=== PATIENT | male | born 1950 | race Hispanic/Latino ===

== ENCOUNTER 2021-10-05 14:33 | Inpatient (IN) | payer OTHER ==
--- NOTE | 2021-10-05 11:09 | R.PREADM ---
PRE-ADMISSION SCREENING FORM SCREENING DATE AND TIME 10/05/2021 10:39 (CDT) ANTICIPATED REHAB ADMISSION DATE 10/06/2021 REFERRING FACILITY [facility] REFERRAL DATE AND TIME 10/04/2021 15:09 (CDT) ACUTE ADMIT DATE 09/30/2021 HOSPITALIZED IN LAST 60 DAYS? Yes Previous Rehabilitation(s): No. REFERRING PHYSICIAN Pato Mcmillan REHAB FACILITY [facility] CLINICAL LIAISON Caty Armando PHYSICIAN REVIEWER Dr. Uvaldo Gomez M.D. MR# [id number] [id number] NAME ABHISHEK RODRIGUES ADDRESS [address] [place] PHONE ( ZIP [phone] DATE OF 1950 AGE 71 SSN# [id number] GENDER male MARITAL STATUS Unknown ADMIT FROM 02 - [facility] PRE-HOSPITAL LIVING SETTING 01 - Home (private home/apt. board/care, assisted living, usp, transitional living) HOME TYPE AND DETAILS Type of home: single family house # of levels in the residence: 1 # of steps to enter the residence: 0 # of steps within the residence: 0 PRE-HOSPITAL LIVING WITH Alone FAMILY SUPPORT No PHONE PRIMARY FAMILY CONTACT ON ADM.? no IS PRIMARY FAMILY CONTACT AUTH. REP.? no PHONE 1ST CONTACT ON ADM. no IS 1ST CONTACT AUTH. REP.? no PHONE 2ND CONTACT ON ADM.? no PATIENT EMPLOYMENT STATUS Retired (for age) PATIENT EMPLOYER No Employer PAYOR INFORMATION: 1ST PAYOR NAME MEDICARE 1ST PAYOR PHONE 1ST PAYOR INJURY/ILLNESS DUE TO ACCIDENT? No ANOTHER LIBERTARIAN RESPONSIBLE? No PRIMARY REHAB/ACUTE DIAGNOSIS: Epidural hemorrhage without loss of consciousness, initial encounter (S06.4X0A) ONSET DATE 09/30/2021 REHAB IMPAIRMENT CATEGORY (KARLOS): 02 Traumatic brain injury (TBI) MEETS 60% rule PRIMARY DIAGNOSIS-RELATED SURGERIES: posterior C1-C2 fusion with iliac crest autograft harvest COMORBID REHAB/ACUTE DIAGNOSES: - Tier 3 Chronic systolic (congestive) heart failure (I50.22) - Non-Tiered Unspecified atrial fibrillation (I48.91) Chronic kidney disease, unspecified (N18.9) Essential (primary) hypertension (I10) Type 2 diabetes mellitus without complications (E11.9) Hypo-osmolality and hyponatremia (E87.1) Syncope and collapse (R55) Hyperkalemia (E87.5) Alzheimer's disease with late onset (G30.1) Atrioventricular block, first degree (I44.0) - N/A Grade III dens fracture Left C7 facet fracture INTERVENTIONS: - Type 2 Diabetes Assess LE for temperature, pulses, color, and sensation. Assess for signs of hyperglycemia. Monitor blood glucose and effectiveness of medications/Insulin - Hypertension Assess/ Monitor patient B/P and treat with prescribed medications Increase physical activity Implement healthy diet - Afib Administer prescribed anticoagulants and monitor effectiveness Assess/ Monitor pt cardiac and respiratory status Monitor pt labs - Chronic Kidney Disease Assess fluid status and identify potential sources of imbalance. Encourage alternating activity with rest. Ensure proper nutritional intake within the limits of the treatment regimen. Promote increased self-care and greater independence. - Congestive Heart Failure Administer Supplemental O2 as indicated Administer prescribed medications per physician orders Assess/ Monitor and treat fluid overload Assess/ Monitor pt O2 Sats via Pulse Ox Monitor pt labs - Pain Assess/Monitor pt pain and treat with prescribed pain medications Anticipate the need for pain medication for optimal pain managment Educate pt on relaxation techniques and deep breathing Non pharmacological pain management - Hyponatremia 2l fluid restriction RISK FOR COMPLICATIONS: - DVT Active and Passive ROM exercises Administer medications per MD order Assist patient with frequent position changes Elevate BLE - CHF Assess/ Monitor pt for s/s cardiac/respiratory distress - Skin Breakdown Encourage ambulation as tolerated Repositioning q 2 hours Use of pillows or foam wedges while in bed - Pain Anticipate the need for pain medication for optimal pain managment Assess pt for pain and Administer prescribed pain medication as needed Educate patient on relaxation and deep breathing techniques - Falls Maintain call light within patient reach for easy access to nursing assistance Provide assistance getting out of bed and with ambulation Provide assistive devices - Stroke Assess/ Monitor and maintain patient pain level Assess/ Monitor patient blood pressure - Cardiac Failure Assess/ Monitor pt cardiac status SUMMARY OF ACUTE HOSPITALIZATION: Pt. is a 71 yo Right-handed male. On 09/30/2021 he was admitted to [facility] with diagnosis Epidural hemorrhage without loss of consciousnes s, initial encounter (S06.4X0A). His impairment category is Brain Dysfunction 02 - Closed Injury (03.29). Pre-morbidly, Pt. was independent/mod-I in Locomotion and Self-Care; and he had good Safety Awareness , Balance, Transfers Control, and Endurance. Currently, he has deficits of Locomotion, Safety Awareness, Balance, Self-Care, Transfers Control, an d Endurance. Pt. is now referred to [facility] for acute in-patient rehabilitation in order to maximize patient's functional independence in activities of daily living, strength, ROM, and mobi lity. Patient has realistic goal of being discharged at assistance level 6-Amalia to reside at Home with Pt self. PAST MEDICAL HISTORY Chronic kidney disease, unspecified (N18.9) Essential (primary) hypertension (I10) Grade III dens fracture Hypo-osmolality and hyponatremia (E87.1) Left C7 facet fracture S12.14XS Type 2 diabetes mellitus without complications (E11.9) Type III dens fracture Unspecified atrial fibrillation (I48.91) MEDICATION ALLERGIES: No Known Drug Allergies (NKDA) ENVIRONMENTAL ALLERGIES: - Substance Allergies None Known - Other Allergies None Known CODE STATUS: Full code WEIGHT/HEIGHT/BMI: WEIGHT unknown lbs HEIGHT 5' unknown" BMI N/A DIET: - Diet Type Regular - Diet - Solid Texture Regular - Diet - Liquid Texture Regular - Tube Feed N/A SKIN DIAGRAM: Gonzalez Cath on Genitalia; extent - small; stage - NS(Not Stageable). Treatment - Per Physician's Order s. REVIEW OF SYSTEMS: - Gen Alert and awake Lying in bed No apparent distress Oriented to: person, time, and place - Vital Signs Temperature: 98.0 F SBP/DBP: 123/71 Pulse: 64 Resp: 18 Vital signs stable, afebrile - CVS RRR VITAL SIGNS Temperature: 98.0 F SBP/DBP: 123/71 Pulse: 64 Resp: 18 Vital signs stable, afebrile MEDICATIONS/TREATMENT: Other- See attached MAR (Medication Administration Record). CURRENT SPHINCTER CONTROL: Pre-hospital bladder status: unspecified # of bladder accidents in the last 7 days prior to screenin Pre-hospital bowel status: unspecified # of bowel accidents in the last 7 days prior to screenin Last Bowel Movement Date: 10/04/2021 CURRENT LOCOMOTION STATUS: distance walked 0 feet DETAILED CURRENT FUNCTIONAL STATUS: - Bladder accident frequency: 7-Ind - No accidents in the past 7 days - Bowel accident frequency: 7-Ind - No accidents in the past 7 days - Walking score based on distance walked: 0(N/A) - Wheelchair score based on distance traveled: 0(N/A) QI SCORES: - Self-Care A. Eating 04-Supervision or touching assistance B. Oral hygiene 04-Supervision or touching assistance C. Toileting hygiene 02-Substantial/maximal assistance E. Shower/bathe self 88-Not attempted due to medical condition or safety concerns F. Upper body dressing 04-Supervision or touching assistance G. Lower body dressing 02-Substantial/maximal assistance H. Putting on/taking off footwear 02-Substantial/maximal assistance - Mobility A. Roll left and right 03-Partial/moderate assistance B. Sit to lying 03-Partial/moderate assistance C. Lying to sitting on side of bed 03-Partial/moderate assistance D. Sit to stand 03-Partial/moderate assistance E. Chair/wzg-lq-btume transfer 07-Patient refused F. Toilet transfer 07-Patient refused G. Car transfer 88-Not attempted due to medical condition or safety concerns I. Walk 10 feet 88-Not attempted due to medical condition or safety concerns J. Walk 50 feet with two turns 88-Not attempted due to medical condition or safety concerns K. Walk 150 feet 88-Not attempted due to medical condition or safety concerns L. Walking 10 feet on uneven surfaces 88-Not attempted due to medical condition or safety concerns M. 1 step (curb) 88-Not attempted due to medical condition or safety concerns N. 4 steps 88-Not attempted due to medical condition or safety concerns O. 12 steps 88-Not attempted due to medical condition or safety concerns P. Picking up object 88-Not attempted due to medical condition or safety concerns R. Wheel 50 feet with two turns 09-Not applicable S. Wheel 150 feet 09-Not applicable - Bladder and Bowel Bladder continence 9-Not applicable Bowel continence 1-Occasionally incontinent - Endurance Fair - Balance Poor - Safety Awareness Poor CURRENT FUNC. DEFICITS: Self-Care, Mobility, Endurance, Balance, and Safety Awareness HISTORY OF FALLS. HAS THE PATIENT HAD TWO OR MORE FALLS IN THE PAST YEAR OR ANY FALL WITH INJURY IN T HE PAST YEAR?: No PRIOR SURGERY. DID THE PATIENT HAVE MAJOR SURGERY DURING THE 100 DAYS PRIOR TO ADMISSION?: Yes THERAPY NOTES FROM ACUTE CARE: Attached. SPECIAL NEEDS: - Safety Concerns Skin breakdown precautions needed due to skin breakdown risk - Fall Precautions Due to poor balance PRECAUTIONS: - Fall Precaution Low bed TABS alarm Bed alarm - Weight Bearing Precaution No lifting greater than 10lbs - Incontinence Bowel Incontinence - DVT Risk due to restricted mobility and age - Skin Breakdown Risk due to restricted mobility and age PATIENT NEEDS ACTIVE AND ONGOING THERAPEUTIC INTERVENTION OF MULTIPLE THERAPY DISCIPLINES, INCLUDING: - Dietary and Nutrition Adequate Nutrition. Nutritional Education. Nutritional Supplements. - Occupational Therapy Cognitive Retraining. Patient needs Occupational Therapy for a daily minimum of 1.5 hours at least 5 out of 7 days, to improve Activities of Daily Living, including: Eating, Grooming, Bathing, Dressing, Toileting, Toilet Transfers, Community Reintegration, Higher functional activities, Adaptive Equipme nt, Splinting, Household Tasks, and Other activities as determined. Visual Perceptual Training. - Physical Therapy Patient needs Physical Therapy for a daily minimum of 1.5 hours at least 5 out of 7 days, to improve: Mobility, Strengthening, Transfers, Stretching, ROM, Endurance, Ability to manage stairs, Gait, and Balance. PATIENT NEEDS CLOSE MEDICAL SUPERVISION BY A REHABILITATION PHYSICIAN FOR: Coordination of Treatment Team Diabetes Management Medical and Co-Morbidity Management Wound Care Bowel and Bladder Management Pain Management Post-Op Complications PATIENT REQUIRES 24X7 REHAB NURSING FOR MEDICAL AND FUNCTIONAL MGT. OF THE FOLLOWING DEFICITS: Disease Management Medication Management Patient requires 24x7 Rehabilitation Nursing for: Pain Issues, Identifying and preventing risk factor s, Monitoring and reporting current medical conditions, Assisting with ambulation and transfer, Analilia ting with all ADL-s, Teaching patients about disease process and medications, Family teaching, Provid ing safe environment, Bowel and Bladder Issues, Skin Integrity, and Medication Management Patient/Family Education Providing Safe Environment Skin Integrity PATIENT REQUIRES INTENSIVE, COORDINATED INTERDISCIPLINARY APPROACH TO REHAB: Arranging Home Equipment/Services Discharge Planning Family Intervention/Training Patient needs Dietary and Nutrition Services for: Adequate Nutrition, Nutritional Supplements, and Nu tritional Education Patient needs Fairground Operator and/or Case Management for: Discharge Planning, Arranging Home Equipmen t or Services, and Family Interventions Fairground Operator/Case Management PATIENT REHAB POTENTIAL: Cassidy RODRIGUES is able and expected to receive 3 hours of individualized therapy daily on at least 5 of e very 7 days Cassidy RODRIGUES's prognosis for significant practical improvement within a reasonable period of time appea rs Good Expected level of measurable improvement will be of a practical value to Cassidy RODRIGUES's functional capa city or adaptations to impairments Has a viable Discharge Plan Medically appropriate; condition is sufficiently stable to participate in intensive rehab program DISCHARGE PLAN: - Estimated Length of Stay (days) 17. - Consensus on plan Discharge plan has been discussed with primary caregiver. Patient/Family is in agreement with the mae n. Primary caregiver is in agreement with the plan. - Patient/Family Goals Return home independently. - Planned Living Setting Upon Discharge Home, to live alone. Transitional Living. Primary caregiver: Pt self. RECOMMENDED CARE LEVEL: IRF RECOMMENDATION DETAILS: Recommended Admission to Comprehensive Rehabilitation Program to Increase Functional Comal SCREENER'S COMPLETENESS CONFIRMATION: - Screening Confirmation The patient data collection on this preadmission screening form is finished PHYSICIANS REVIEW AND ADMISSION DETERMINATION Admit - Based on my review of the Pre-Admission Screening results, in my medical judgment and experie nce, I concur with the findings and recommend admission to [facility], as this patient requires an IRF level of care. SIGNATURE PANEL: Clinical Liaison - [electronically] signed by Caty Armando on 10/05/2021 at 10:37 (CDT) Physician Reviewer - [electronically] signed by Dr. Uvaldo Gomez M.D. on 10/05/2021 at 11:09 (CDT )
--- OUTSIDE RECORDS SUMMARY | 2021-10-05 20:21 | XMS REPORT | Continuity of Care Document ---
:1950 Author Organization [facility] t Address [address] [place] [address] Care Team Providers Name Role Phone Edgardo García MD A Primary Care Physician [phone] NAILA GIRALDO Attending Clinician Unavailable NAILA GIRALDO Attending Clinician Unavailable Rolando Laguerre MD Attending Clinician Misty Avelar MA Attending Clinician Unavailable Edgardo García Attending Clinician Guanaco Jones MA Attending Clinician Unavailable NAILA GIRALDO Admitting Clinician Unavailable Payers Payer Name Policy Type Policy Number Effective Date Expiration Date S joni MEDICARE PART A [id number] 2015 \\T\\ B 00:00:00 BCBS FED SELECT [id number] 2004 00:00:00 Problems Condition Condition Condition Status Onset Resolution Last Treating Co mments Source Name Details Category Date Date Treatment Clinician Date Hyponatrem Hyponatrem Disease Active U apnchito ia ia 8 ity of 00:00: [place] 00 Medical Branch Controlled Controlled Disease Recurre Overvie w: Univers type 2 type 2 nce 09-28 Formattin ity of diabetes diabetes 00:00: g of this [place] as mellitus mellitus 00 note is Medic al with with different Branch hyperglyce hyperglyce from the chan, chan, original. 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 8-24 ity of disease disease 00:00: [place] 00 Medical Branch 1st degree 1st degree Disease Active U nivers AV block AV block 8-24 ity of 00:00: [place] 00 Medical Branch Other Other Disease Active Univers specified specified 8-24 ity of hypothyroi hypothyroi 00[place] dism dism 00 Medical Branch Chronic Chronic Disease Recurre Univer s indwelling indwelling nce 8-24 it y of Gonzalez Gonzalez 00:00: [place] catheter catheter 00 Medica l Branch Hyperkalem Hyperkalem Disease Active U nivers ia ia 8-24 ity of 00:00: [place] Medical Branch Syncope, Syncope, Disease Active Unive rs unspecifie unspecifie 8-18 it y of d syncope d syncope 00:00: Shai lagos type type 00 Medical Branch Chronic Chronic Disease Active Univers kidney kidney 6-30 ity of disease, disease, 00:00: [place] stage 3 stage 3 00 Medical unspecifie unspecifie Br anch d d Chronic Chronic Disease Active Univers atrial atrial 6-30 ity of fibrillati fibrillati 00:00: [place] on, on, 00 Medical unspecifie unspecifie Br anch d d Chronic Chronic Disease Active Univers systolic systolic 6-30 ity of (congestiv (congestiv 00:00: [place] e) heart e) heart 00 Medica l failure failure Branch Fall, Fall, Disease Active Univers initial initial 6-27 ity of encounter encounter 00:00: [facility] Medical Branch Elevated Elevated Disease Active [facility] cortisol cortisol [address] level level 00:00: [facility]osp[facility] 00 l Acquired Acquired Disease Active [facility] di hypothyroi hypothyroi [address] dism dism 00:00: Hospita 00 l Hyponatrem Hyponatrem Disease Active M ethodi ia ia 6-13 st 00:00: Hospita 00 l Abnormal Abnormal Disease Active [facility] di liver liver [address] function function 00:00: Hospit a test test 00 l Iron Iron Disease Active Methodi deficiency deficiency 13 st anemia anemia 00:00: Hospita 00 l Vitamin D Vitamin D Disease Active Met hodi deficiency deficiency 07-18 00:00: Hospita 00 l Diabetes Diabetes Disease Active Metho di mellitus mellitus 07-18 00:00: Hospita 00 l Back pain Back pain Disease Active Met hodi 07-18 00:00: Hospita 00 l Heart Heart Disease Active Methodi disease disease 07-18 00:00: Hospita 00 l Hypertensi Hypertensi Disease Active M ethodi on on 07-18 00:00: Hospita 00 l Neuropathy Neuropathy Disease Active M ethodi 07-18 00:00: Hospita 00 l Stage 3a Stage 3a Disease Active Metho di chronic chronic 07-18 kidney kidney 00:00: Hospita disease disease 00 l Allergies, Adverse Reactions, Alerts Allergy Allergy Status Severity Reaction(s) Onset Inactive Treating Comm ents Source Name Type Date Date Clinician MORPHINE DRUG Active Unknown-Cmnt Un pat INGREDI 08-01 ity of 00:00: [place] 00 Medical Branch Morphine Propensi Active Unknown - Uni vers ty to See comments 08-01 ity of adverse 00:00: [place] reaction 00 [facility] Branch Morphine Propensi Active Hallucinatio Methodi ty to ns 06-30 st adverse 00:00: Hospita reaction 00 l s to drug Family History Family Member Diagnosis Comments Start Date Stop Date Source Natural daughter Diabetes [facility] [place] [facility] Natural daughter Hypertension Method [facility] Natural daughter [facility] father Hypertension [facility] [place] [facility] Social History Social Habit Start Date Stop Date Quantity Comments Source Exposure to 2021-09-12 2021-09-22 Not sure [facility] SARS-CoV-2 00:00:00 04:19:00 [facility] (event) [place] Tobacco use and 2021-08-26 2021-08-26 Smokeless tobacco Un iversity of exposure 00:00:00 00:00:00 non-user [facility] Education 2021-08-01 2021-08-01 14 University of 00:00:00 00:00:00 [facility] Alcohol intake 2021-07-18 2021-07-18 [facility] 00:00:00 00:00:00 non-drinker Hospital (finding) Sex Ass[birth year] At [birth year] [facility] 00:00:00 00:00:00 Hospital Smoking Status Start Date Stop Date Source Never smoked tobacco [facility] Medications Ordered Filled Start Stop Current Ordering Indication Dosage Frequency Signature Comments Components Source Medication Medication Date Date Medication? Clinician (SIG) Name Name glimepiride Yes 1mg Take 1 mg U nivers (AMARYL) 1 8-31 by mouth ity o f mg tablet 18:35: daily with [place] 55 breakfast. Medical Branch amiodarone Yes 200mg Take 200 Un pat 200 mg 8-31 mg by ity of tablet 18:35: mouth [place] 55 daily. Medical Branch carvediloL Yes 25mg Take 25 mg U nivers (COREG) 25 8-31 by mouth 2 ity of mg tablet 18:35: (two) [place] [address] times Medical daily with Branch meals. DULoxetine Yes 60mg Take 60 mg U nivers 60 mg 8-31 by mouth ity of capsule 18:35: daily. [place] [address] Medical Branch ferrous Yes 325mg Take 325 Unive rs sulfate 325 8-31 mg by ity of mg (65 mg 18:35: mouth 2 [place] iron) EC 55 (two) Medical tablet times Branch daily with meals. gabapentin Yes 400mg Take 400 Un pat 400 mg 8-31 mg by ity of capsule 18:35: mouth 2 [place] 55 (two) Medical times Branch daily. omeprazole Yes 20mg Take 20 mg U nivers 20 mg 8-31 by mouth ity of capsule 18:35: daily. [place] [address] Medical Branch tamsulosin Yes Take by Univ ers 0.4 mg 24 8-31 mouth ity of hr capsule 18:35: daily. [place] [address] Medical Branch traZODone Yes 100mg Take 100 Uni vers 100 mg 8-31 mg by ity of tablet 18:35: mouth at [place] [address] bedtime. Medical Branch SITagliptin Yes 50mg Take 50 mg Univers (JANUVIA) 8-31 by mouth ity of 50 mg 18:35: daily. [place] [address] Medical Branch levothyroxi 2021- No 25ug Take 25 Un pat ne 25 mcg 8-31 08-31 mcg by ity of tablet 10:19: 00:00 mouth [place] 34 :00 every Medical morning. Branch lisinopriL 2021- No 20mg Take 20 mg Univers 20 mg 10-05 by mouth ity of tablet 10:19: 00:00 daily. [place] 34 :00 Medical Branch polyethylen Yes [id number] 17g Take 1 Univers e glycol 10-05 Packet by ity of 3350 17 00:00: mouth in [place] gram powder 00 the Medical morning Branch and 1 Packet in the evening. ergocalcife Yes [id number] 76742L Take 1 Univers rol, 10-05 capsule by ity of vitamin d2, 00:00: mouth [place] 1,250 mcg 00 weekly. Medical (50,000 Branch unit) capsule bisacodyL 2021- Yes [id number] 10mg Insert 1 Univers 10 mg 10-05 Suppositor ity of suppository 00:00: 04:59 y into [place] as 00 :00 rectum Medical once daily Branch as needed for Constipati on unresolved by oral medication s for up to 30 days. metFORMIN 2021- Yes [id number] 500mg Take 1 Univers 500 mg 10-05 tablet by ity of tablet 00:00: 04:59 mouth in [place] 00 :00 the Medical morning Branch and 1 tablet in the evening. Take with meals. Do all this for 30 days. methocarbam 2021- Yes [id number] 750mg Take 1 Univers oL 750 mg 10-05 tablet by ity of tablet 00:00: 04:59 mouth 4 [place] 00 :00 (four) Medical times Branch daily for 30 days. melatonin 3 2021- Yes [id number] 3mg Take 1 Univers mg tablet 10-05 tablet by ity of 00:00: 04:59 mouth at [place] 00 :00 bedtime Medical for 30 Branch days. HYDROcodone 2021- Yes [id number] 1{tbl} Take 1 U nivers -acetaminop 10-0508 tablet by it y of hen 10-325 00:00: 04:59 mouth [place] mg tablet 00 :00 every 4 Medical (four) Branch hours as needed for Pain (scale 7-10) for up to 7 days. Indication s: acute pain traZODone 2-0 Yes 100mg 100 mg, Univ ers (DESYREL) 8-30 Oral, QHS, ity of tablet 100 02:00: First dose [place] mg 00 (after Medical last Branch modificati on) on Sun10/03/21 at 2100, Until Discontinu ed, Routine traZODone 2-0 Yes 100mg 100 mg, Univ ers (DESYREL) 830 Oral, QHS, ity of tablet 100 02:00: First dose [place] mg 00 (after Medical last Branch modificati on) on Sun10/03/21 at 2100, Until Discontinu ed, Routine sennosides 2021-0 Yes 8.6mg 8.6 mg, Uni vers (SENOKOT) 10-03 Oral, ity of tablet 8.6 16:30: DAILY, [place] mg 00 First dose Medical on Sun [place] 10/03/21 at 1130, Until Discontinu ed, Routine polyethylen 2021-0 Yes 17g 17 g, Unive rs e glycol 10-03 Oral, BID, ity o f 3350 powder 16:30: First dose [place] [address] [facility] 10/03/21 at Branch 1130, Until Discontinu ed, Routine sennosides 2021-0 Yes 8.6mg 8.6 mg, Uni vers (SENOKOT) 10-03 Oral, ity of tablet 8.6 16:30: DAILY, [place] mg 00 First dose Medical on Sun [place] 10/03/21 at 1130, Until Discontinu ed, Routine polyethylen 2021-0 Yes 17g 17 g, Unive rs e glycol 10-03 Oral, BID, ity o f 3350 powder 16:30: First dose [place] [address] [facility] 10/03/21 at Branch 1130, Until Discontinu ed, Routine bisacodyL 2021-0 Yes 10mg 10 mg, Univer s (DULCOLAX) 10-03 Rectal, ity of suppository 15:37: QHSPRN, [place] as 10 mg 54 Starting Medical on Sun [place] 10/03/21 at 1037, Until Discontinu ed, Routine, Constipati on bisacodyL 2022-0 Yes 10mg 10 mg, Univer s (DULCOLAX) 10-03 Rectal, ity of suppository 15:37: QHSPRN, [place] as 10 mg 54 Starting Medical on Mon Branch 10/03/21 at 1037, Until Discontinu ed, Routine, Constipati on sodium 2021- No 2g 2 g, Oral, [facility] ers chloride 10-02 08-28 TID MEALS, ity of tablet 2 g 13:00: 21:14 First dose [place] 00 :14 on [facility] 10/02/21 at Branch 0800, Until Discontinu ed, Routine heparin Yes 5000U 5,000 Univers (porcine) 10-01 Units, ity of injection 19:00: Subcutaneo [place] 5,000 Units 00 us, Q8H, [facility] First dose Branch on 10/01/21 at 1400, Until Discontinu ed, Routine heparin Yes 5000U 5,000 Univers (porcine) 8 Units, ity of injection 19:00: Subcutaneo [place] 5,000 Units 00 us, Q8H, [facility] First dose Branch on 10/01/21 at 1400, Until Discontinu ed, Routine NaCl 0.9% 2021- No 1000mL at 42 [facility] ers (NS) IV 10-01 08- mL/hr, IV ity of infusion 02:15: 19:56 Infusion, [place] as 1,000 mL 00 :08 CONTINUOUS Medic al , Starting Branch on Sun09/30/21 at 2115, Until 10/01/21 at 1456, Routine HYDROcodone Yes 1{tbl} 1 tablet, Univers -acetaminop 10-01 Oral, ity of hen (NORCO) 02:00: Q4HPRN, [place] as 10-325 mg 00 Starting Medica l tablet 1 on Sun Branch tablet 09/30/21 at 2100, Until Discontinu ed, Routine, Pain (scale 7-10) methocarbam 0 Yes 750mg 750 mg, Un pat oL 10-01 Oral, QID, ity of (ROBAXIN) 02:00: First dose [place] tablet 750 00 (after Medical mg last Branch modificati on) on Sun09/30/21 at 2100, Until Discontinu ed, Routine HYDROcodone 0 Yes 1{tbl} 1 tablet, Univers -acetaminop 10-01 Oral, ity of hen (NORCO) 02:00: Q4HPRN, [place] as 10-325 mg 00 Starting Medica l tablet 1 on Fri Branch tablet 09/30/21 at 2100, Until Discontinu ed, Routine, Pain (scale 7-10) methocarbam Yes 750mg 750 mg, Un pat oL 10-01 Oral, QID, ity of (ROBAXIN) 02:00: First dose [place] tablet 750 00 (after Medical mg last Branch modificati on) on Sun09/30/21 at 2100, Until Discontinu ed, Routine HYDROcodone 2021- No 1{tbl} 1 tablet, Univers -acetaminop 10-01 Oral, ity of hen (NORCO) 00:53: 01:51 Q6HPRN, [place] 10-325 mg 17 :08 Starting Medica l tablet 1 on Sun Branch tablet 09/30/21 at 1953, Until Sun09/30/21 at 2050, Routine, Pain (scale 7-10) gabapentin 2021- No 100mg 100 mg, Un pat (NEURONTIN) 09-30 Oral, ity of capsule 100 20:00: 19:17 ONCE, 1 [place] mg 00 :00 dose, On Medical Fri Branch 09/30/21 at 1500, Routine methocarbam 2021- No 500mg 500 mg, U nivers oL 09-30 Intravenou ity of (ROBAXIN) 20:00: 19:18 s, ONCE, 1 [place] injection 00 :00 dose, On Medica l 500 mg Fri Branch 09/30/21 at 1500, Routine ceFAZolin 2021- No 1000mg 1,000 mg, Univers (ANCEF) 09-30 Intravenou ity o f injection 18:15: 20:54 s, Q8H [place] 1,000 mg 00 :07 ABX, 15 Medical doses, Branch First dose on Sun09/30/21 at 1315, Last dose on Sun10/05/21 at 0515
Re ason for Anti-Infec tive: Surgical Prophylaxi s
Surgi doyle Prophylaxi s: Neurosurge ry
Dura tion of therapy: within 24 hours of surgery FENTanyl PF 2021- No 25ug 25 mcg, Un pat (SUBLIMAZE 09-30 Slow IV ity o f (PF)) 17:55: 18:28 Push, [place] injection 57 :00 Q5MIN PRN, Medi doyle 25 mcg 4 doses, Branch Starting on Sun09/30/21 at 1255, Until Sun09/30/21 at 1328, Routine, Pain (scale 7-10), PACU bupivacaine 2021- No PRN, Unive rs (preserv 09-30 Starting ity of free) 0.5% 16:55: 18:37 on Sun s (SENSORCAIN 00 :44 09/30/21 at Md dicnm E MPF) 0.5 1155, Branch % (5 mg/mL) Until Sun injection 09/30/21 at 1337, Routine, Intra-op vancomycin 2021- No PRN, Univer s (VANCOCIN) 09-30 Starting ity of injection 14:48: 18:37 on Sun [place] 00 :44 09/30/21 at Medical 0948, Branch Until Sun09/30/21 at 1337, ANNA, Intra-op thrombin 2021- No PRN, Univers (recombinan 09-30 Starting ity of t) 14:48: 18:37 on Sun (RECOTHROM) 00 :44 09/30/21 at Md dical topical 0948, Branch solution Until Sun09/30/21 at 1337, Routine, Intra-op lidocaine-e 2021- No PRN, Unive rs pinephrine 09-30 Starting ity of (XYLOCAINE 14:47: 18:37 on Sun s WITH 00 :44 09/30/[address] [facility] EPINEPHRINE 0947, Branch ) 0.5 Until Sun %-1:200,000 09/30/21 at injection 1337, Routine, Intra-op NaCl 0.9% 2021- No 500mL at 999 Univ ers (NS) bolus 09-29 mL/hr, 500 it y of infusion 16:45: 18:05 mL, IV [place] 500 mL 00 :00 Piggyback, Medical ONCE, 1 Branch dose, On Sun09/29/21 at 1145, ANNA levothyroxi Yes 50ug 50 mcg, Uni vers ne 8 Oral, ity of (SYNTHROID) 11:00: QAM-0600, [place] tablet 50 00 First dose Medi doyle mcg (after Branch last modificati on) on Sun09/29/21 at 0600, Until Discontinu ed, Routine levothyroxi Yes 50ug 50 mcg, Uni vers ne 8 Oral, ity of (SYNTHROID) 11:00: QAM-0600, [place] tablet 50 00 First dose Medi doyle mcg (after Branch last modificati on) on Sun09/29/21 at 0600, Until Discontinu ed, Routine HYDROcodone 2021- No 1{tbl} 1 tablet, Univers -acetaminop 09-28 Oral, ity of hen (NORCO 20:00: 00:53 Q4HPRN, [place] as 5) 5-325 mg 00 :31 Starting Medi dyole tablet 1 on Sun tablet 09/28/21 at 1500, Until Sun09/30/21 at 1953, Routine, Pain (scale 7-10) bisacodyL 2021-0 Yes 10mg 10 mg, Univer s (DULCOLAX) 8- Rectal, ity of suppository 15:32: QDAILYPRN, [place] 10 mg 42 Starting Medical on Sun Branch 09/28/21 at 1032, Until Discontinu ed, Routine, Constipati on unresolved by oral medication s bisacodyL 2021-0 Yes 10mg 10 mg, Univer s (DULCOLAX) 824 Rectal, ity of suppository 15:32: QDAILYPRN, [place] 10 mg 42 Starting Medical on Sun Branch 09/28/21 at 1032, Until Discontinu ed, Routine, Constipati on unresolved by oral medication s sodium 2021-0 202- No 2g 2 g, Oral, Univ ers chloride 09-28 QID, First ity of tablet 2 g 03:45: 19:56 dose [place] 00 :08 (after Medical last Branch modificati on) on Sun09/27/21 at 2245, Until Discontinu ed, Routine heparin 2021- No 5000U 5,000 Univers (porcine) 09-27 0826 Units, ity of injection 19:00: 10:28 Subcutaneo [place] 5,000 Units 00 :11 us, Q8H, Medi doyle First dose Branch on Sun09/27/21 at 1400, Until Discontinu ed, Routine sodium 2021- No 1g 1 g, Oral, Univ ers chloride 09-27 0824 TID MEALS, ity of tablet 1 g 13:00: 03:33 First dose [place] 00 :29 on Sun09/27/21 at Branch 0800, Until Discontinu ed, Routine sulfamethox 2021- No 1{tbl} 1 tablet, [facility] azole-trime 09-25 Oral, BID, i ty of 17:30: 16:51 First dose [place] as (BACTRIM 00 :27 on [facility]) 800-160 09/25/21 at Br anch mg per 1230, tablet 1 Until tablet Discontinu ed, ANNA
Re ason for Anti-Infec tive: Documented Infection< br>Documen gretta Infection Site: Urine
D uration of Therapy: 7 days traZODone 2021- No 50mg 50 mg, Unive rs (DESYREL) 09-24 0829 Oral, QHS, ity of tablet 50 02:00: 15:36 First dose [place] mg 00 :11 (after Medical last Branch modificati on) on Sun09/23/21 at 2100, Until Discontinu ed, Routine metFORMIN 0 Yes 500mg 500 mg, Univ ers (GLUCOPHAGE 8-19 Oral, BID ity of ) tablet 22:00: MEALS, [place] 500 mg 00 First dose Medical on Sun09/23/21 at 1700, Until Discontinu ed, Routine metFORMIN 2021-0 Yes 500mg 500 mg, Univ ers (GLUCOPHAGE 8-19 Oral, BID ity of ) tablet 22:00: MEALS, [place] 500 mg 00 First dose Medical on Sun09/23/21 at 1700, Until Discontinu ed, Routine docusate 2022-0 Yes 100mg 100 mg, Unive rs (COLACE) 8 Oral, ity of capsule 100 14:00: DAILY, [place] mg 00 First dose Medical on Sun09/23/21 at 0900, Until Discontinu ed, Routine omeprazole 2-0 Yes 20mg 20 mg, Unive rs (PRILOSEC) 09-23 Oral, ity of capsule 20 14:00: DAILY, [place] mg 00 First dose Medical on Sun09/23/21 at 0900, Until Discontinu ed, Routine tamsulosin 2022-0 Yes .4mg 0.4 mg, Univ ers (FLOMAX) 09-23 Oral, ity of capsule 0.4 14:00: DAILY, [place] mg 00 First dose Medical on Sun09/23/21 at 0900, Until Discontinu ed, Routine SITagliptin 2-0 Yes 50mg 50 mg, Univ ers (JANUVIA) 09-23 Oral, ity of tablet 50 14:00: DAILY, [place] mg 00 First dose Medical on Sun09/23/21 at 0900, Until Discontinu ed, Routine ergocalcife 2021-0 Yes [id number] 50,000 Un pat rol 09-23 Units, ity of (vitamin 14:00: Oral, [place] d2) 00 QWEEKLY, Medical (CALCIFEROL First dose Br anch ) capsule on Sun 50,000 09/23/21 at Units 0900, Until Discontinu ed, Routine DULoxetine 2-0 Yes 60mg 60 mg, Unive rs (CYMBALTA) 09-23 Oral, ity of capsule 60 14:00: DAILY, [place] mg 00 First dose Medical on Sun09/23/21 at 0900, Until Discontinu ed, Routine amiodarone 2022-0 Yes 200mg 200 mg, Uni vers (PACERONE) 09-23 Oral, ity of tablet 200 14:00: DAILY, [place] mg 00 First dose Medical on Sun09/23/21 at 0900, Until Discontinu ed, Routine docusate 2022-0 Yes 100mg 100 mg, Unive rs (COLACE) 09-23 Oral, ity of capsule 100 14:00: DAILY, [place] mg 00 First dose Medical on Sun09/23/21 at 0900, Until Discontinu ed, Routine omeprazole 2021-0 Yes 20mg 20 mg, Unive rs (PRILOSEC) 09-23 Oral, ity of capsule 20 14:00: DAILY, [place] mg 00 First dose Medical on Sun Branch 09/23/21 at 0900, Until Discontinu ed, Routine tamsulosin 2021-0 Yes .4mg 0.4 mg, Univ ers (FLOMAX) 09-23 Oral, ity of capsule 0.4 14:00: DAILY, [place] mg 00 First dose Medical on Sun Branch 09/23/21 at 0900, Until Discontinu ed, Routine SITagliptin 2021-0 Yes 50mg 50 mg, Univ ers (JANUVIA) 09-23 Oral, ity of tablet 50 14:00: DAILY, [place] mg 00 First dose Medical on Sun Branch 09/23/21 at 0900, Until Discontinu ed, Routine ergocalcife 2021-0 Yes [id number] 50,000 Un pat rol 09-23 Units, ity of (vitamin 14:00: Oral, [place] d2) 00 QWEEKLY, Medical (CALCIFEROL First dose Br anch ) capsule on Sun 50,000 09/23/21 at Units 0900, Until Discontinu ed, Routine DULoxetine 2021-0 Yes 60mg 60 mg, Unive rs (CYMBALTA) 09-23 Oral, ity of capsule 60 14:00: DAILY, [place] mg 00 First dose Medical on Sun Branch 09/23/21 at 0900, Until Discontinu ed, Routine amiodarone 2021-0 Yes 200mg 200 mg, Uni vers (PACERONE) 09-23 Oral, ity of tablet 200 14:00: DAILY, [place] mg 00 First dose Medical on Sun Branch 09/23/21 at 0900, Until Discontinu ed, Routine lisinopriL 2021-0 2021- No 20mg 20 mg, Univ ers (PRINIVIL,Z 09-23 Oral, ity of ESTRIL) 14:00: 19:08 DAILY, [place] tablet 20 00 :21 First dose Medi doyle mg on Sun Branch 09/23/21 at 0900, Until Discontinu ed, Routine levothyroxi 2021-0 2021- No 25ug 25 mcg, Un pat ne 09-2324 Oral, ity of (SYNTHROID) 11:00: 18:53 QAM-0600, [place] tablet 25 00 :15 First dose Medi doyle mcg on Sun [place] 09/23/21 at 0600, Until Discontinu ed, Routine melatonin 2021-0 Yes 3mg 3 mg, Univers (MELATIN) 8-19 Oral, QHS, ity of tablet 3 mg 02:15: First dose [place] 00 on [facility] 09/22/21 at Branch 2115, Until Discontinu ed, Routine melatonin 2021-0 Yes 3mg 3 mg, Univers (MELATIN) 8 Oral, QHS, ity of tablet 3 mg 02:15: First dose [place] 00 on [facility] 09/22/21 at Branch 2115, Until Discontinu ed, Routine traZODone 2021-0 2021- No 100mg 100 mg, Uni vers (DESYREL) 09-23 08-19 Oral, QHS, ity of tablet 100 02:00: 20:39 First dose [place] mg 00 :06 on [facility] 09/22/21 at Branch 2100, Until Discontinu ed, Routine gabapentin 2021-0 Yes 400mg 400 mg, Uni vers (NEURONTIN) 8 Oral, BID, it y of capsule 400 01:00: First dose [place] mg 00 on [facility] 09/22/21 at Branch 1999, Until Discontinu ed, Routine ferrous 2021-0 Yes 325mg 325 mg, Univer s sulfate 09-23 Oral, BID, ity of tablet 325 01:00: First dose [place] mg 00 on [facility] 09/22/21 at [place] 1999, Until Discontinu ed gabapentin 2021-0 Yes 400mg 400 mg, Uni vers (NEURONTIN) 09-23 Oral, BID, it y of capsule 400 01:00: First dose [place] mg 00 on [facility] 09/22/21 at [place] 1999, Until Discontinu ed, Routine ferrous 2021-0 Yes 325mg 325 mg, Univer s sulfate 09-23 Oral, BID, ity of tablet 325 01:00: First dose [place] mg 00 on [facility] 09/22/21 at [place] 1999, Until Discontinu ed carvediloL 2021-0 Yes 25mg 25 mg, Unive rs (COREG) 8 Oral, BID ity of tablet 25 22:00: MEALS, [place] mg 00 First dose Medical on [facility] 09/22/21 at 1700, Until Discontinu ed, Routine carvediloL Yes 25mg 25 mg, Unive rs (COREG) 09-22 Oral, BID ity of tablet 25 22:00: MEALS, [place] mg 00 First dose Medical on [place] Branch 09/22/21 at 1700, Until Discontinu ed, Routine Sliding Yes Subcutaneo [facility] ers Scale 8- us, TID ity of Insulin - 17:00: MEALS+HS, [place] as Lispro 00 First dose Medical (HumaLOG) + on [place] Branch [facility] 09/22/21 at Testing 1200, Until Discontinu ed, Routine Sliding Yes Subcutaneo [facility] ers Scale 8- us, TID ity of Insulin - 17:00: MEALS+HS, [place] as Lispro 00 First dose Medical (HumaLOG) + on [place] Branch [facility] 09/22/21 at Testing 1200, Until Discontinu ed, Routine iopamidol 2021- No [id number] 80mL 80 mL, Univers (ISOVUE 09-22 Intravenou ity o f 370-500 mL) 16:45: 16:24 s, ONCE, 1 [place] injection 00 :00 dose, On Medica l 80 mL [facility] Branch 09/22/21 at 1145, Routine niCARdipine 2021- No 2.5mg/h 2.5-15 Univers (CARDENE 09-22 08-23 mg/hr ity of I.V.) 40 mg 15:26: 17:55 (12.5-75 [place] in NaCL 200 27 :13 mL/hr), IV Me dical mL (RTU) Infusion, Branch infusion TITRATE, SBP goal < 140, Starting on [place] 09/22/21 at 1026
In itiate infusion at 2.5 mg/hr.&nbs p; Ti trate by 2.5 mg/hr every 5 minutes to 15 minutes as needed to achieve and maintain goal blood pressure. Maximum dose = 15 mg/hr. If goal not maintained at maximum allowed dose, contact prescriber .
NaCl 0.9% 2021- No 1000mL at 42 Univ ers (NS) IV 8-18 08-23 mL/hr, IV ity of infusion 14:30: 11:38 Infusion, [place] as 1,000 mL 00 :15 CONTINUOUS Medic al , Starting Branch on [place] 09/22/21 at 0930, Until Sun09/27/21 at 0638, Routine ondansetron 2022-0 Yes 4mg 4 mg, Slow Univers (ZOFRAN 8-18 IV Push, ity of (PF)) 14:27: Q6HPRN, [place] injection 4 32 Starting Medi doyle mg on [place] Branch 09/22/21 at 0927, Until Discontinu ed, Routine, Nausea and Vomiting (N/V) ondansetron 2022-0 Yes 4mg 4 mg, Slow Univers (ZOFRAN 8-18 IV Push, ity of (PF)) 14:27: Q6HPRN, [place] injection 4 32 Starting Medi doyle mg on [place] [facility] 09/22/21 at 0927, Until Discontinu ed, Routine, Nausea and Vomiting (N/V) labetaloL 2022-0 Yes 20mg 20 mg, Univer s (NORMODYNE) 8-18 Slow IV ity o f injection 14:27: Push, [place] 20 mg 14 Q2HPRN, Medical Starting Branch on [place] 09/22/21 at 0927, Until Discontinu ed, Routine, SBP goal < 140 labetaloL 2022-0 Yes 20mg 20 mg, Univer s (NORMODYNE) 8-18 Slow IV ity o f injection 14:27: Push, [place] 20 mg 14 Q2HPRN, Medical Starting Branch on [place] 09/22/21 at 0927, Until Discontinu ed, Routine, SBP goal < 140 hydralAZINE 2022-0 Yes 10mg 10 mg, Univ ers (APRESOLINE 8-18 Slow IV ity o f ) injection 14:27: Push, [place] 10 mg 01 Q2HPRN, Medical Starting Branch on [facility] 09/22/21 at 0927, Until Discontinu ed, Routine, SBP goal < 140 hydralAZINE 2022-0 Yes 10mg 10 mg, Univ ers (APRESOLINE 8-18 Slow IV ity o f ) injection 14:27: Push, [place] 10 mg 01 Q2HPRN, Medical Starting Branch on [facility] 09/22/21 at 0927, Until Discontinu ed, Routine, SBP goal < 140 glucagon 2021-0 Yes 1mg 1 mg, Univers (GLUCAGEN 8-18 Intramuscu ity of DIAGNOSTIC 14:26: [place], [place] 04 Starting Medical injection 1 on [place] [facility] mg 09/22/21 at 0926, Until Discontinu ed, ANNA, Blood Glucose < or = 70 mg/dL and patient is unable to swallow or has mental changes. dextrose 50 0 Yes 25mL 25 mL, Univ ers % in water 818 Slow IV ity of (D50W) 14:26: Push, PRN, [place] injection 04 Starting Medica l 25 mL on [place] [facility] 09/22/21 at 0926, Until Discontinu ed, ANNA, Blood Glucose < or = 70 mg/dL and patient is unable to swallow or has mental status changes. glucagon 0 Yes 1mg 1 mg, Univers (GLUCAGEN 818 Intramuscu ity of DIAGNOSTIC 14:26: [place], [place] 04 Starting Medical injection 1 on [place] [facility] mg 09/22/21 at 0926, Until Discontinu ed, ANNA, Blood Glucose < or = 70 mg/dL and patient is unable to swallow or has mental changes. dextrose 50 0 Yes 25mL 25 mL, Univ ers % in water 18 Slow IV ity of (D50W) 14:26: Push, PRN, [place] injection 04 Starting Medica l 25 mL on [place] [facility] 09/22/21 at 0926, Until Discontinu ed, ANNA, Blood Glucose < or = 70 mg/dL and patient is unable to swallow or has mental status changes. HYDROcodone 2021-0 2021- No 1{tbl} 1 tablet, Univers -acetaminop 09-22 Oral, ity of hen (NORCO 14:25: 19:45 Q6HPRN, Harshad as 5) 5-325 mg 47 :58 Starting Medi [place] tablet 1 on [place] [facility] tablet 09/22/21 at 0925, Until 09/28/21 at 1445, Routine, Pain (scale 7-10) acetaminoph 2022-0 Yes 325mg 325 mg, Un pat en 09-22 Oral, ity of (TYLENOL) 14:25: Q6HPRN, [place] tablet 325 43 Starting Medic al mg on [place] [facility] 09/22/21 at 0925, Until Discontinu ed, Routine, Pain (scale 1-3) acetaminoph Yes 325mg 325 mg, Un pat en 09-22 Oral, ity of (TYLENOL) 14:25: Q6HPRN, [place] tablet 325 43 Starting Medic al mg on [place] [facility] 09/22/21 at 0925, Until Discontinu ed, Routine, Pain (scale 1-3) FENTanyl PF 2021- No 50ug 50 mcg, Un pat (SUBLIMAZE 09-22 Slow IV ity o f (PF)) 14:00: 12:50 Push, [place] injection 00 :00 ONCE, 1 Medical 50 mcg dose, On Branch [facility] 09/22/21 at 0900, ANNA FENTanyl PF 2021- No 50ug 50 mcg, Un pat (SUBLIMAZE 09-22 Slow IV ity o f (PF)) 12:00: 11:02 Push, [place] injection 00 :00 ONCE, 1 Medical 50 mcg dose, On Branch [facility] 09/22/21 at 0700, Routine ondansetron 2021- No 4mg 4 mg, Slow Univers (ZOFRAN 09-22 IV Push, ity of (PF)) 11:00: 11:02 ONCE, 1 [place] injection 4 00 :00 dose, On Medi doyle mg [place] [facility] 09/22/21 at 0600, ANNA piperacilli 2021- No 3.375g 3.375 g, Univers n-tazobacta 09-22 IV ity of m (ZOSYN) 11:00: 11:32 [place] 3.375 g in 00 :00 ONCE, 1 Medica l NaCl 0.9% dose, On Branch (NS) 50 mL [place] MINI-BAG 09/22/21 at 0600, Administer over 30 Minutes, 50 mL
R juana for Anti-Infec tive: Documented Infection< br>Documen gretta Infection Site: Urine<br&g t;Duration of Therapy: Other (see Comments) glimepiride Yes 1mg Take 1 mg U nivers (AMARYL) 1 8-18 by mouth ity o f mg tablet 09:29: [place] 04 breakfast. Medical Branch levothyroxi Yes 25ug Take 25 Uni vers ne 25 mcg 8-18 mcg by ity of tablet 09:29: mouth [place] [id number] every Medical morning. Branch amiodarone Yes 200mg Take 200 Un pat 200 mg 8-18 mg by ity of tablet 09:29: mouth [place] [id number] daily. Medical Branch carvediloL Yes 25mg Take 25 mg U nivers (COREG) 25 8-18 by mouth 2 ity of mg tablet 09:29: (two) [place] [id number] [facility] daily with Branch meals. DULoxetine Yes 60mg Take 60 mg U nivers 60 mg 8-18 by mouth ity of capsule 09:29: daily. [address] ferrous Yes 325mg Take 325 Unive rs sulfate 325 8-18 mg by ity of mg (65 mg 09:29: mouth 2 [place] iron) EC 04 (two) Medical tablet times [place] daily with meals. gabapentin Yes 400mg Take 400 Un pat 400 mg 8-18 mg by ity of capsule 09:29: mouth 2 [place] 04 (two) Medical times Branch daily. lisinopriL Yes 20mg Take 20 mg U nivers 20 mg 8-18 by mouth ity of tablet 09:29: daily. [address] omeprazole Yes 20mg Take 20 mg U nivers 20 mg 8-18 by mouth ity of capsule 09:29: daily. [address] tamsulosin Yes Take by Univ ers 0.4 mg 24 8-18 mouth ity of hr capsule 09:29: daily. [address] traZODone Yes 100mg Take 100 Uni vers 100 mg 8-18 mg by ity of tablet 09:29: mouth at [place] [address] bedtime. Medical Branch SITagliptin Yes 50mg Take 50 mg Univers (JANUVIA) 8-18 by mouth ity of 50 mg 09:29: daily. [place] tablet 04 Medical Branch rivastigmin 0 Yes [id number] 1{patch Apply 1 Univers e 4.6 mg/24 7-29 } Patch to ity of hour patch 00:00: [place] 00 the Medical morning. Branch Call office for refill when script completed. rivastigmin 0 Yes [id number] 1{patch Apply 1 Univers e 4.6 mg/24 729 } Patch to ity of hour patch 00:00[place] 00 the Medical morning. Branch Call office for refill when script completed. ergocalcife 2021- No [id number] 20969H Take 1 Univers rol, 08-11 [id number] capsule by ity of vitamin d2, 00:00: 00:00 [place] 1,250 mcg 00 :00 weekly for Medi doyle (50,000 8 doses. Branch unit) capsule ergocalcife 2021- No [id number] Take 1 Univers rol, 08-11 [id number] capsule by ity of vitamin d2, 00:00: 04:59 [place] 1,250 mcg 00 :00 weekly for Medi doyle (50,000 8 doses. Branch unit) capsule levothyroxi Yes [id number] 25ug QD Take 1 Methodi ne 6-13 tablet (25 st (SYNTHROID) 00:00: mcg total) Hospita 25 mcg 00 by mouth l tablet every morning. glimepiride 0 Yes [id number] 1mg QD Take 1 [facility] (AMARYL) 1 6-13 tablet (1 st MG tablet 00:00: mg total) Hos zohra 00 by mouth l daily before breakfast. cholecalcif 0 Yes [id number] 2000U QD Take 1 Methodi dillan, 6-[address] vitamin D3, 00:00: (2,000 Hosp [facility] (cholecalci 00 Units l ferol, total) by vitamin mouth D3,) 50 mcg daily. (2,000 Take with unit) food. capsule capsule carvediloL 2021- No 25mg Q.5D Take 25 mg [facility] (COREG) 25 5-26 05-[address] MG tablet 15:30: 00:00 (two) Hospit a 00 :00 times a l day with meals. lisinopriL 2021- No 20mg QD Take 20 mg [facility] (PRINIVIL) 5-26 05-[address] 20 mg 15:30: 00:00 daily. Hospita tablet 00 :00 l amIODarone 2021- No 200mg QD Take 200 M ethodi (PACERONE) 5-26 05-[address] 200 MG 15:30: 00:00 mouth Hospita tablet 00 :00 daily. l ferrous 2021-2021- No 325mg Q.5D Take 325 Meth patricio sulfate 325 5-26 05-[address] (65 FE) MG 15:30: 00:00 mouth 2 Hos zohra tablet 00 :00 (two) l times a day. DULoxetine 2021- No 60mg QD Take 60 mg Methodi (CYMBALTA) 5-26 05-[address] 60 MG 15:30: 00:00 daily. Hospita capsule 00 :00 l omeprazole 2021- No 20mg QD Take 20 mg [facility] (PriLOSEC) 5-26 05-[address] 20 MG 15:30: 00:00 daily. Hospita capsule 00 :00 l furosemide 2021- No 20mg Q.5D Take 20 mg [facility] (LASIX) 20 5-26 05-[address] mg tablet 14:48: 00:00 (two) Hospit a 09 :00 times a l day. carvediloL Yes [id number] 25mg Q.5D Take 1 M ethodi (COREG) 25 5-26 tablet (25 st MG tablet 00:00: mg total) Hos zohra 00 by mouth 2 l (two) times a day with meals. DULoxetine 0 Yes [id number] 60mg QD Take 1 [facility] (CYMBALTA) 5-[address] 60 MG 00:00: (60 mg Hospita capsule 00 total) by l mouth daily. ferrous 2021-0 Yes [id number] 325mg Q.5D Take 1 Me thodi sulfate 325 5-[address] (65 FE) MG 00:00: (325 mg Hosp [facility] tablet 00 total) by l mouth 2 (two) times a day. gabapentin 2021-0 Yes [id number] 400mg Q.5D Take 1 [facility] (NEURONTIN) 5-[address] 400 mg 00:00: (400 mg Hospita capsule 00 total) by l mouth 2 (two) times a day. Januvia 50 0 Yes [id number] 50mg QD Take 1 M ethodi mg tablet 5-26 tablet (50 st 00:00: mg total) Hospita 00 by mouth l daily. amIODarone 0 Yes [id number] 200mg QD Take 1 [facility] (PACERONE) 5-[address] 200 MG 00:00: (200 mg Hospita tablet 00 total) by l mouth daily. lisinopriL 0 Yes [id number] 20mg QD Take 1 M ethodi (PRINIVIL) 5-26 tablet (20 st 20 mg 00:00: mg total) Hospita tablet 00 by mouth l daily. omeprazole 0 Yes [id number] 20mg QD Take 1 [facility] (PriLOSEC) 5-[address] 20 MG 00:00: (20 mg Hospita capsule 00 total) by l mouth daily. tamsulosin Yes [id number] .4mg QD Take 1 [facility] (FLOMAX) 5-[address] 0.4 mg 00:00: (0.4 mg Hospita capsule 00 total) by l mouth daily with dinner. traZODone 0 Yes [id number] 100mg QD Take 2-3 [facility] (DESYREL) 5-[address] 50 MG 00:00: (100-150 Hospita tablet 00 mg total) l by mouth nightly as needed for sleep. gabapentin 2021- No 400mg Q.5D Take 400 M ethodi (NEURONTIN) 5-09 05-[address] 400 mg 00:00: 00:00 mouth 2 Hospita capsule 00 :00 (two) l times a day. tamsulosin 2021- No .4mg QD Take 0.4 Me thodi (FLOMAX) 5-05 05-[address] 0.4 mg 00:00: 00:00 mouth Hospita capsule 00 :00 daily with l dinner. spironolact 2021- No Metho di one 4-28 05-26 st (ALDACTONE) 00:00: 00:00 Hospi ta 25 MG 00 :00 l tablet Januvia 50 2021- No 50mg QD Take 50 mg [facility] mg tablet 06-01- by mouth st 00:00: 00:00 daily. Hospita 00 :00 l FreeStyle Yes [facility] Lite Strips 4-16 st strip test 00:00: Hospita strips 00 l traZODone 2021- No 100mg QD Take Method i (DESYREL) 04-08 05- 100-[address] 50 MG 00:00: 00:00 by mouth Hospita tablet 00 :00 nightly as l needed for sleep. traMADoL Yes 50mg Q.5D Take 50 mg Met hodi (ULTRAM) 50 -[address] mg tablet 00:00: (two) Hospita 00 times a l day as needed for severe pain. Vital Signs Vital Name Observation Time Observation Value Comments Source Systolic blood 2021-10-05 20:40:00 130 mm[Hg] Univer sity [facility] Diastolic blood 2021-10-05 20:40:00 75 mm[Hg] Unive rsity [facility] Heart rate 2021-10-05 20:40:00 63 /min [facility] Body temperature 2021-10-05 20:40:00 36.44 Kathya [facility] Respiratory rate 2021-10-05 20:40:00 16 /min [facility] Oxygen saturation in 2021-10-05 20:40:00 94 /min [facility] Arterial blood by [facility] Pulse oximetry [place] Body height 2021-09-22 09:24:00 172.7 cm [facility] Body weight 2021-09-22 09:24:00 77.111 kg [facility] BMI 2021-09-22 09:24:00 25.85 kg/m2 [facility] Systolic blood 2021-09-30 09:21:00 132 mm[Hg] Univer sity [facility] Diastolic blood 2021-09-30 09:21:00 68 [facility]Hg[facility] 2021-09-30 09:21:00 58 /min [facility] Body temperature 2021-09-30 09:21:[address] [facility] 2021-09-30 09:21:00 17 /min [facility] Oxygen saturation in 2021-09-30 09:21:00 94 /min University Arterial blood by [facility] Pulse oximetry [place] Body height 2021-09-22 09:24:00 172.7 cm [facility] Body weight 2021-09-22 09:24:00 77.111 kg [facility] BMI 2021-09-22 09:24:00 25.85 kg/m2 [facility] Systolic blood 2021-07-18 20:46:00 106 mm[Hg] Method ist [facility] pressure Diastolic blood 2021-07-18 20:46:00 66 mm[Hg] [facility] pressure Heart rate 2021-07-18 20:46:00 65 /min [facility] [place] [facility] Respiratory rate 2021-07-18 20:46:00 18 /min [facility] Body height 2021-07-18 20:46:00 172.7 cm [facility] [place] [facility] Body weight 2021-07-18 20:46:00 74.027 kg [facility] [place] [facility] BMI 2021-07-18 20:46:00 24.81 kg/m2 [facility] [place] [facility] Oxygen saturation in 2021-07-18 20:46:00 97 /min [facility] [place] [facility] Arterial blood by Pulse oximetry Procedures Procedure Date / Time Performing Clinician Source Performed POCT GLUCOSE (AUTOMATED) 2021-10-05 22:03:00 Naila Giraldo [facility] POCT GLUCOSE (AUTOMATED) 2021-10-05 16:39:00 Naila Giraldo [facility] POCT GLUCOSE (AUTOMATED) 2021-10-05 12:46:00 Naila Giraldo [facility] POCT GLUCOSE (AUTOMATED) 2021-10-05 01:39:00 Naila Giraldo [facility] POCT GLUCOSE (AUTOMATED) 2021-10-04 21:46:00 Naila Giraldo [facility] COVID-19 (ID NOW RAPID 2021-10-04 19:26:00 Romero Sharpe [facility]) Medical Branch POCT GLUCOSE (AUTOMATED) 2021-10-04 16:50:00 Naila Giraldo [facility] [place] [facility] POCT GLUCOSE (AUTOMATED) 2021-10-04 12:50:00 Naila Giraldo Uni versity [facility] [place] [facility] BASIC METABOLIC PANEL (NA, 2021-10-04 10:20:00 To Sal [facility] K, CL, CO2, GLUCOSE, BUN, [place] Medica l Branch CREATININE, [place]) CBC WITH DIFF 2021-10-04 10:20:00 Rosas Sal [facility] [place] [facility] POCT GLUCOSE (AUTOMATED) 2021-10-04 03:18:00 Naila Giraldo Uni versity of [facility] POCT GLUCOSE (AUTOMATED) 2021-10-03 21:57:00 Naila Giraldo Uni versity [facility] POCT GLUCOSE (AUTOMATED) 2021-10-03 21:57:00 Naila Giraldo Uni versity [facility] [place] [facility] POCT GLUCOSE (AUTOMATED) 2021-10-03 20:53:00 Hipolito, Naila Uni vers[facility] [place] [facility] POCT GLUCOSE (AUTOMATED) 2021-10-03 20:53:00 Naila Giraldo [facility] versity of [place] [facility] POCT GLUCOSE (AUTOMATED) 2021-10-03 17:16:00 Naila Giraldo [facility] [place] [facility] POCT GLUCOSE (AUTOMATED) 2021-10-03 17:16:00 Naila Giraldo [facility] [place] [facility] POCT GLUCOSE (AUTOMATED) 2021-10-03 12:49:00 Noreen Giraldorick Uni versity [facility] [place] [facility] POCT GLUCOSE (AUTOMATED) 2021-10-03 12:49:00 Naila Giraldo Uni versity [facility] [place] [facility] BASIC METABOLIC PANEL (NA, 2021-10-03 07:31:00 Kimmy Mills [facility] K, CL, CO2, GLUCOSE, BUN, Medica l Branch CREATININE, CA) CBC WITH DIFF 2021-10-03 07:31:00 Kimmy Mills [place] [facility] BASIC METABOLIC PANEL (NA, 2021-10-03 07:31:00 Kimmy Mills [facility] [place] K, CL, CO2, GLUCOSE, BUN, Medica l Branch CREATININE, CA) CBC WITH DIFF 2021-10-03 07:31:[address] [facility] POCT GLUCOSE (AUTOMATED) 2021-10-03 01:07:00 Naila Giraldo Uni versity of [facility] POCT GLUCOSE (AUTOMATED) 2021-10-03 01:07:00 Naila Giraldo Uni versity of [facility] POCT GLUCOSE (AUTOMATED) 2021-10-02 21:02:00 Naila Giraldo Uni versity of [facility] POCT GLUCOSE (AUTOMATED) 2021-10-02 21:02:00 Naila Giraldo Uni versity of [facility] POCT GLUCOSE (AUTOMATED) 2021-10-02 16:33:00 Naila Giraldo Uni versity of [facility] POCT GLUCOSE (AUTOMATED) 2021-10-02 16:33:00 Naila Giraldo Uni versity of [facility] POCT GLUCOSE (AUTOMATED) 2021-10-02 12:47:00 Naila Giraldo Uni versity of [facility] POCT GLUCOSE (AUTOMATED) 2021-10-02 12:47:00 Naila Giraldo versity of [facility] BASIC METABOLIC PANEL (NA, 2021-10-02 09:06:00 LaKimmy hoang [facility] [place] K, CL, CO2, GLUCOSE, BUN, Medica l Branch CREATININE, CA) CBC WITH DIFF 2021-10-02 09:06:00 Kimmy Mills [facility] BASIC METABOLIC PANEL (NA, 2021-10-02 09:06:00 LalliMelissat [facility] [place] K, CL, CO2, GLUCOSE, BUN, Medica l Branch CREATININE, CA) CBC WITH DIFF 2021-10-02 09:06:00 Kimmy Mills [facility] POCT GLUCOSE (AUTOMATED) 2021-10-02 01:41:00 Naila Giraldo Uni versity of [facility] POCT GLUCOSE (AUTOMATED) 2021-10-02 01:41:00 [facility] 2021-10-01 22:24:00 [facility] OSMOLALITY, SERUM OR 2021-10-01 22:24:00 [facility] 2021-10-01 22:24:00 [facility] OSMOLALITY, SERUM OR 2021-10-01 22:24:[address] [facility] POCT GLUCOSE (AUTOMATED) 2021-10-01 21:55:00 [facility] ([facility]OMATED) 2021-10-01 21:55:00 Naila Giraldo [facility] SODIUM, URINE RANDOM 2021-10-01 20:24:00 Gene [facility] OSMOLALITY URINE 2021-10-01 20:24:00 Gene [facility] SODIUM, URINE RANDOM 2021-10-01 20:24:00 Gene [facility] OSMOLALITY URINE 2021-10-01 20:24:00 Gene [facility] POCT GLUCOSE (AUTOMATED) 2021-10-01 18:09:00 [facility]OMATED) 2021-10-01 18:09:00 [facility]SE (AUTOMATED) 2021-10-01 17:08:00 [facility] ([facility]OMATED) 2021-10-01 17:08:00 [facility] BASIC METABOLIC PANEL (NA, 2021-10-01 16:58:00 Kimmy Mills [facility] [place] K, CL, CO2, GLUCOSE, BUN, Medica l Branch CREATININE, CA) CBC WITH DIFF 2021-10-01 16:58:00 Kimmy Mills [place] [facility] BASIC METABOLIC PANEL (NA, 2021-10-01 16:58:00 Kimmy Mills [facility] [place] K, CL, CO2, GLUCOSE, BUN, Medica l Branch CREATININE, CA) CBC WITH DIFF 2021-10-01 16:58:[address] [facility] POCT GLUCOSE (AUTOMATED) 2021-10-01 13:05:00 Naila Giraldo [facility] POCT GLUCOSE (AUTOMATED) 2021-10-01 13:05:00 [facility] CERVICAL SPINE 2 VW 2021-10-01 09:30:[address] [facility] XR CERVICAL SPINE 2 VW 2021-10-01 09:30:[address] [facility] POCT GLUCOSE (AUTOMATED) 2021-10-01 02:23:00 Naila Giraldo [facility] POCT GLUCOSE (AUTOMATED) 2021-10-01 02:23:00 Naila Giraldo [facility] CT CERVICAL SPINE WO 2021-10-01 02:09:00 Xavi Smith [facility] CONTRAST [facility] CT CERVICAL SPINE WO 2021-10-01 02:09:00 Xavi Smith [facility] CONTRAST [facility] POCT GLUCOSE (AUTOMATED) 2021-09-30 23:08:00 Naila Giraldo [facility] POCT GLUCOSE (AUTOMATED) 2021-09-30 23:08:00 Naila Giraldo [facility] FL TIME OR 2021-09-30 14:55:00 Naila Giraldo [facility] (NON-REPORTABLE) Medical Branch FL TIME OR 2021-09-30 14:55:00 Naila Giraldo [facility] (NON-REPORTABLE) Medical Branch FL TIME OR 2021-09-30 14:00:00 Naila Giraldo [facility] (NON-REPORTABLE) Medical Branch FL TIME OR 2021-09-30 14:00:00 Naila Giraldo [place] [facility] (NON-REPORTABLE) Medical Branch FUSION SPINE POSTERIOR 2021-09-30 12:08:[address] [facility] WITH NAVIGATION Medical Branch FUSION SPINE POSTERIOR 2021-09-30 12:08:00 Naila Giraldo [facility] CERVICAL WITH [facility] POCT GLUCOSE (AUTOMATED) 2021-09-30 11:53:00 Naila Giraldo [facility] POCT GLUCOSE (AUTOMATED) 2021-09-30 11:53:00 Naila Giraldo [facility] XR CHEST 1 VW 2021-09-30 09:10:00 Eloise [facility] XR CHEST 1 VW 2021-09-30 09:10:00 Eloise [facility] HB ECG ROUTINE & RHYTHM 2021-09-30 07:32:52 Eloise [facility] STRIP [facility] HB ECG ROUTINE & RHYTHM 2021-09-30 07:32:52 Eloise [facility] STRIP [facility] ABORH CONFIRMATION (LAB 2021-09-30 07:15:00 Eloise [facility] ONLY) [facility] ABORH CONFIRMATION (LAB 2021-09-30 07:15:00 Eloise [facility] ONLY) [facility] COVID-19 (ID NOW RAPID 2021-09-30 06:53:00 Eloise [facility] TESTING) [facility] LAB ONLY COVID 2021-09-30 06:53:00 Eloise [facility] INTERPRETATION [facility] COVID-19 (ID NOW RAPID 2021-09-30 06:53:00 Eloise [facility] TESTING) [facility] LAB ONLY COVID 2021-09-30 06:53:00 Eloise [facility] INTERPRETATION [facility] HB ABO GROUPING 2021-09-30 06:51:00 Eloise [facility] HB ABO GROUPING 2021-09-30 06:51:00 Eloise [facility] BASIC METABOLIC PANEL (NA, 2021-09-30 06:48:00 Barney Navas [facility] K, CL, CO2, GLUCOSE, BUN, [facility] CREATININE, CA) CBC WITH DIFF 2021-09-30 06:48:00 Eloise [facility] PROTHROMBIN TIME / INR 2021-09-30 06:48:[address] [facility] ACTIVATED PARTIAL THRMPLAS 2021-09-30 06:48:00 Barney Navas [facility] BASIC METABOLIC PANEL (NA, 2021-09-30 06:48:00 Barney Navas [facility] K, CL, CO2, GLUCOSE, BUN, [facility] CREATININE, CA) CBC WITH DIFF 2021-09-30 06:48:00 Eloise [facility] PROTHROMBIN TIME / INR 2021-09-30 06:48:[address] [facility] ACTIVATED PARTIAL THRMPLAS 2021-09-30 06:48:00 Barney Navas [facility] POCT GLUCOSE (AUTOMATED) 2021-09-30 01:21:00 Naila Giraldo [facility] POCT GLUCOSE (AUTOMATED) 2021-09-30 01:21:00 Naila Giraldo [facility] POCT GLUCOSE (AUTOMATED) 2021-09-29 21:44:00 Naila Giraldo [facility] POCT GLUCOSE (AUTOMATED) 2021-09-29 21:44:00 Naila Giraldo [facility] POCT GLUCOSE (AUTOMATED) 2021-09-29 17:41:00 Naila Giraldo [facility] POCT GLUCOSE (AUTOMATED) 2021-09-29 17:41:00 Naila Giraldo [facility] POCT GLUCOSE (AUTOMATED) 2021-09-29 14:17:00 Naila Giraldo [facility] POCT GLUCOSE (AUTOMATED) 2021-09-29 14:17:00 Naila Giraldo [facility] CORTISOL AM 2021-09-29 09:05:00 Heidy [facility] o [facility] BASIC METABOLIC PANEL (NA, 2021-09-29 09:05:00 Heidy [facility] K, CL, CO2, GLUCOSE, BUN, Medica l Branch CREATININE, CA) CBC WITH DIFF 2021-09-29 09:05:00 Nghia [facility] CORTISOL AM 2021-09-29 09:05:00 Heidy [facility] BASIC METABOLIC PANEL (NA, 2021-09-29 09:05:00 Heidy, [facility] K, CL, CO2, GLUCOSE, BUN, Medica l Branch CREATININE, CA) CBC WITH DIFF 2021-09-29 09:05:00 Nghia [facility] POCT GLUCOSE (AUTOMATED) 2021-09-29 02:29:00 Naila Giraldo [facility] POCT GLUCOSE (AUTOMATED) 2021-09-29 02:29:00 Naila Giraldo [facility] SODIUM 2021-09-29 00:49:00 [place] [facility] SODIUM 2021-09-29 00:49:00 [place] [facility] POCT GLUCOSE (AUTOMATED) 2021-09-28 21:59:00 Naila Giraldo [facility] POCT GLUCOSE (AUTOMATED) 2021-09-28 21:59:00 Naila Giraldo [facility] ALDOSTERONE, SERUM 2021-09-28 19:50:00 Heidy, [facility] RENIN ACTIVITY 2021-09-28 19:50:00 Heidy, [facility] ALDOSTERONE, SERUM 2021-09-28 19:50:00 Heidy, [facility] RENIN ACTIVITY 2021-09-28 19:50:00 Heidy, [facility] BASIC METABOLIC PANEL (NA, 2021-09-28 17:23:00 To Sal [facility] K, CL, CO2, GLUCOSE, BUN, [place] Medica l Branch CREATININE, CA) BASIC METABOLIC PANEL (NA, 2021-09-28 17:23:00 Sal, [facility] K, CL, CO2, GLUCOSE, BUN, [place] [facility] CREATININE, CA) POCT GLUCOSE (AUTOMATED) 2021-09-28 16:20:00 Naila Giraldo [facility] POCT GLUCOSE (AUTOMATED) 2021-09-28 16:20:00 Naila Giraldo [facility] POCT GLUCOSE (AUTOMATED) 2021-09-28 12:24:00 Naila Giraldo Uni vers[facility] POCT GLUCOSE (AUTOMATED) 2021-09-28 12:24:00 Naila Giraldo versity [facility] BASIC METABOLIC PANEL (NA, 2021-09-28 09:38:00 [facility] K, CL, CO2, GLUCOSE, BUN, [place] [facility] CREATININE, CA) CBC WITH DIFF 2021-09-28 09:38:00 [facility] (NA, 2021-09-28 09:38:00 [facility], CL, CO2, GLUCOSE, BUN, [place] [facility] CREATININE, CA) CBC WITH DIFF 2021-09-28 09:38:00 [facility] POCT GLUCOSE (AUTOMATED) 2021-09-28 01:02:00 Naila Giraldo Uni versity [facility] POCT GLUCOSE (AUTOMATED) 2021-09-28 01:02:00 Naila Giraldo [facility] POCT GLUCOSE (AUTOMATED) 2021-09-27 21:17:00 Naila Giraldo [facility] POCT GLUCOSE (AUTOMATED) 2021-09-27 21:17:00 Naila Giraldo versity of [facility] SODIUM 2021-09-27 17:53:00 N[facility]ia [facility] SODIUM 2021-09-27 17:53:00 Nghia [facility] POCT GLUCOSE (AUTOMATED) 2021-09-27 17:12:00 Naila Giraldo [facility] POCT GLUCOSE (AUTOMATED) 2021-09-27 17:12:00 Naila Giraldo versity of [facility] POCT GLUCOSE (AUTOMATED) 2021-09-27 13:43:00 Naila Giraldo versity of [facility] POCT GLUCOSE (AUTOMATED) 2021-09-27 13:43:00 Naila Giraldo versity of [facility] BASIC METABOLIC PANEL (NA, 2021-09-27 07:15:00 D'Calderon, [facility] K, CL, CO2, GLUCOSE, BUN, Medica l Branch CREATININE, CA) CBC WITH DIFF 2021-09-27 07:15:00 Alden'Calderon [facility] BASIC METABOLIC PANEL (NA, 2021-09-27 07:15:00 D'Mancera, [facility] K, CL, CO2, GLUCOSE, BUN, Medica l Branch CREATININE, CA) CBC WITH DIFF 2021-09-27 07:15:00 Nghia [facility] XR CERVICAL SPINE 2 VW 2021-09-27 03:39:00 Xavi Smith [facility] XR CERVICAL SPINE 2 VW 2021-09-27 03:39:00 Xavi Smith [facility] POCT GLUCOSE (AUTOMATED) 2021-09-27 02:01:00 Naila Giraldo versity of [facility] POCT GLUCOSE (AUTOMATED) 2021-09-27 02:01:00 Naila Giraldo versity of [facility] POCT GLUCOSE (AUTOMATED) 2021-09-26 21:23:00 Naila Giraldo versity of [facility] POCT GLUCOSE (AUTOMATED) 2021-09-26 21:23:00 Naila Giraldo versity of [facility] CT CERVICAL SPINE WO 2021-09-26 17:41:51 Sal [facility] CONTRAST [facility] CT CERVICAL SPINE WO 2021-09-26 17:41:51 Sal [facility] CONTRAST [facility] POCT GLUCOSE (AUTOMATED) 2021-09-26 16:43:00 Naila Giraldo versity of [facility] POCT GLUCOSE (AUTOMATED) 2021-09-26 16:43:00 Naila Giraldo versity of [facility] POCT GLUCOSE (AUTOMATED) 2021-09-26 12:55:00 Naila Giraldo [facility] POCT GLUCOSE (AUTOMATED) 2021-09-26 12:55:00 Naila Giraldo [facility] POCT GLUCOSE (AUTOMATED) 2021-09-25 21:52:00 Naila Giraldo [facility] POCT GLUCOSE (AUTOMATED) 2021-09-25 21:52:00 [facility] PAN[facility] (NA, 2021-09-25 08:40:00 Sal [facility] K, CL, CO2, GLUCOSE, BUN, [place] Medica l Branch CREATININE, CA) CBC WITH DIFF 2021-09-25 08:40:00 Jonelle [facility] BASIC METABOLIC PANEL (NA, 2021-09-25 08:40:00 Sal [facility] K, CL, CO2, GLUCOSE, BUN, [place] Medica l Branch CREATININE, CA) CBC WITH DIFF 2021-09-25 08:40:00 Sal [facility] POCT GLUCOSE (AUTOMATED) 2021-09-24 22:30:00 Naila Giraldo Skyla versity of [facility] POCT GLUCOSE (AUTOMATED) 2021-09-24 22:30:00 Naila Giraldo [facility] POCT GLUCOSE (AUTOMATED) 2021-09-24 13:44:00 Naila Giraldo [facility] POCT GLUCOSE (AUTOMATED) 2021-09-24 13:44:00 Naila Giraldo Uni [facility] BASIC METABOLIC PANEL (NA, 2021-09-24 08:10:00 [facility], CL, CO2, GLUCOSE, BUN, [place] Medica l Branch CREATININE, CA) CBC WITH DIFF 2021-09-24 08:10:00 Jonelle [facility] BASIC METABOLIC PANEL (NA, 2021-09-24 08:10:00 [facility] K, CL, CO2, GLUCOSE, BUN, [place] Medica [facility] Branch CREATININE, CA) CBC WITH DIFF 2021-09-24 08:10:00 Rosas Sal [facility] XR CERVICAL SPINE 2 VW 2021-09-24 03:22:13 Rosas Sal [facility] XR CERVICAL SPINE 2 VW 2021-09-24 03:22:13 Rosas Sal Un iversity [facility] POCT GLUCOSE (AUTOMATED) 2021-09-24 01:29:00 Naila Giraldo [facility] POCT GLUCOSE (AUTOMATED) 2021-09-24 01:29:00 Naila Giraldo versity of [facility] POCT GLUCOSE (AUTOMATED) 2021-09-23 21:24:00 Naila Giraldo versity [facility] POCT GLUCOSE (AUTOMATED) 2021-09-23 21:24:00 Naila Giraldo versity [facility] MR CERVICAL SPINE WO 2021-09-23 18:38:12 Nghia [facility] MR CERVICAL SPINE WO 2021-09-23 18:38:12 Nghia [facility] POCT GLUCOSE (AUTOMATED) 2021-09-23 17:31:00 Naila Giraldo versity [facility] POCT GLUCOSE (AUTOMATED) 2021-09-23 17:31:00 [facility] 2021-09-23 14:39:[address] [facility] THYROID STIMULATING 2021-09-23 14:39:[address] [facility] POCT GLUCOSE (AUTOMATED) 2021-09-23 14:11:00 Naila Giraldo versity of [facility] POCT GLUCOSE (AUTOMATED) 2021-09-23 14:11:00 [facility] BASIC METABOLIC PANEL (NA, 2021-09-23 10:14:00 Nghia [facility] K, CL, CO2, GLUCOSE, BUN, Medica l Branch CREATININE, CA) CBC WITH DIFF 2021-09-23 10:14:00 Nghia [facility] BASIC METABOLIC PANEL (NA, 2021-09-23 10:14:00 Nghia [facility] K, CL, CO2, GLUCOSE, BUN, Medica l Branch CREATININE, CA) CBC WITH DIFF 2021-09-23 10:14:00 Nghia [facility] POCT GLUCOSE (AUTOMATED) 2021-09-23 01:09:00 [facility]SE ([facility]OMATED) 2021-09-23 01:09:00 [facility] 2021-09-22 23:12:00 Nghia [facility] BASIC METABOLIC PANEL (NA, 2021-09-22 23:12:00 Nghia [facility] K, CL, CO2, GLUCOSE, BUN, Medica l Branch CREATININE, CA) THYROID STIMULATING 2021-09-22 23:12:00 Timmy Agrawal [facility] BASIC METABOLIC PANEL (NA, 2021-09-22 23:12:00 Nghia [facility] K, CL, CO2, GLUCOSE, BUN, Medica l Branch CREATININE, CA) POCT GLUCOSE (AUTOMATED) 2021-09-22 21:13:00 [facility] PO[facility]SE (AUTOMATED) 2021-09-22 21:13:00 [facility] TRANSTHORACIC ECHO (TTE) 2021-09-22 19:25:51 Timmy Agrawal Un iversdaniel [facility] TRANSTHORACIC ECHO (TTE) 2021-09-22 19:25:51 Timmy Agrawal iversdaniel [facility] POCT GLUCOSE (AUTOMATED) 2021-09-22 19:14:00 Naila Giraldo [facility] POCT GLUCOSE (AUTOMATED) 2021-09-22 19:14:00 Naila Giraldo [facility] CT ANGIOGRAM HEAD 2021-09-22 16:29:39 Timmy Agrawal [facility] HEAD WO CONTRAST 2021-09-22 16:29:39 Timmy Agrawal [facility] CT ANGIOGRAM NECK 2021-09-22 16:29:39 Nghia [facility] CT ANGIOGRAM HEAD 2021-09-22 16:29:39 Nghia [facility] CT HEAD WO CONTRAST 2021-09-22 16:29:[address] [facility] CT ANGIOGRAM NECK 2021-09-22 16:29:39 Nghia [facility] PROTHROMBIN TIME / INR 2021-09-22 15:36:00 Nghia [facility] ACTIVATED PARTIAL THRMPLAS 2021-09-22 15:36:00 Nghia [facility] PROTHROMBIN TIME / INR 2021-09-22 15:36:00 Nghia [facility] ACTIVATED PARTIAL THRMPLAS 2021-09-22 15:36:00 Nghia [facility] CT CERVICAL SPINE WO 2021-09-22 12:02:[address] [facility] Medical Branch CT HEAD WO CONTRAST 2021-09-22 12:02:45 Rolando Laguerre [facility] CT CERVICAL SPINE WO 2021-09-22 12:02:[address] [facility] Medical Branch CT HEAD WO CONTRAST 2021-09-22 12:02:45 Rolando Laguerre [facility] URINE CULTURE 2021-09-22 11:01:00 Rolando Laguerre [facility] URINE CULTURE 2021-09-22 11:01:00 Rolando Laguerre [facility] COVID-19 (ID NOW RAPID 2021-09-22 11:00:00 Rolando Laguerre [facility] TESTING) Medical Branch LAB ONLY COVID 2021-09-22 11:00:00 Rolando Laguerre [facility] INTERPRETATION [facility] Branch COVID-19 (ID NOW RAPID 2021-09-22 11:00:00 Rolando Laguerre [facility] TESTING) Medical Branch LAB ONLY COVID 2021-09-22 11:00:00 Rolando Laguerre [facility] INTERPRETATION [facility] CREATINE KINASE 2021-09-22 09:35:00 Rolando Laguerre [facility] TROPONIN I 2021-09-22 09:35:00 Rolando Laguerre [facility] COMP. METABOLIC PANEL 2021-09-22 09:35:00 Rolando Laguerre [facility] ([id number]) Medical Branch CBC WITH DIFF 2021-09-22 09:35:00 Rolando Laguerre [facility] URINALYSIS 2021-09-22 09:35:00 Rolando Lagurere [facility] CREATINE KINASE 2021-09-22 09:35:00 Rolando Laguerre [facility] TROPONIN I 2021-09-22 09:35:00 Rolando Laguerre [facility] COMP. METABOLIC PANEL 2021-09-22 09:35:00 Rolando Laguerre [facility] ([id number]) Medical Branch CBC WITH DIFF 2021-09-22 09:35:00 Rolando Laguerre [facility] URINALYSIS 2021-09-22 09:35:00 Rolando Laguerre [facility] HB ECG ROUTINE & RHYTHM 2021-09-22 09:29:28 Rolando Laguerre [facility] [place] HB ECG ROUTINE & RHYTHM 2021-09-22 09:29:28 Rolando Laguerre [facility] [place] EMERGENCY DEPARTMENT 2021-09-22 05:01:00 Doctor Jl, [facility] DOCUMENTS [facility] HOSPITAL ADMISSION 2021-09-22 05:01:00 Doctor Jl, [facility] EMERGENCY DEPARTMENT 2021-09-22 05:01:00 Doctor Jl, [facility] DOCUMENTS [facility] HOSPITAL ADMISSION 2021-09-22 05:01:00 Doctor Unassigned, [facility] RETICULOCYTE COUNT, 2021-07-21 21:37:00 Kenneth, [facility] AUTOMATED CBC WITH PLATELET AND 2021-07-21 21:37:00 Smiley, [facility] DIFFERENTIAL TOTAL IRON BINDING 2021-07-21 21:37:00 [facility] CAPACITY FOLATE LEVEL 2021-07-21 21:37:00 Kenneth, [facility] HEPATITIS B SURFACE 2021-07-21 21:37:00 Smiley, [facility] ANTIBODY HIV 1/2 ANTIGEN/ANTIBODY, 2021-07-21 21:37:00 Smiley, [facility] FOURTH GENERATION W/RFL POTASSIUM LEVEL 2021-07-21 21:37:00 Smiley, [facility] GGT 2021-07-21 21:37:00 Smiley, [facility] VITAMIN B12 LEVEL 2021-07-21 21:37[facility] 2021-07-21 21:37:00 Smiley, [facility] HEPATITIS B SURFACE 2021-07-21 21:37:00 Smiley, [facility] ANTIGEN HEPATITIS A ANTIBODY TOTAL 2021-07-21 21:37:00 Smiley, [facility] ERIK 2021-07-21 21:37:00 [facility] CORTISOL LEVEL, PM 2021-07-21 21:37:00 Smiley, [facility] ALPHA-1 ANTITRYPSIN LEVEL 2021-07-21 21:37:00 Smiley, [facility] HEMOGLOBINOPATHY 2021-07-21 21:37:00 Smiley, [facility] FRACTIONATION CASCADE ANTI-SMOOTH MUSCLE 2021-07-21 21:37:00 Smiley, [facility] ANTIBODY ANTI MITOCHONDRIA SCREEN 2021-07-21 21:37:00 Smiley, [facility] VITAMIN B1 LEVEL, WHOLE 2021-07-21 21:37:00 Smiley, [facility] BLOOD CBC WITH PLATELET AND 2021-07-01 14:37:00 [facility] DIFFERENTIAL COMPREHENSIVE METABOLIC 2021-07-01 14:37:00 [facility] PANEL LIPID PANEL 2021-07-01 14:37:00 [facility] MICROALBUMIN / CREATININE 2021-07-01 14:37:00 [facility] URINE RATIO HEMOGLOBIN A1C 2021-07-01 14:37:00 [facility] VITAMIN D 25 HYDROXY LEVEL 2021-07-01 14:37:00 [facility] TSH REFLEX TO T4F 2021-07-01 14:37:00 [facility] T4 FREE (EVERT HIST) 2021-07-01 14:37:00 [facility] Plan of Care Planned Activity Planned Date Details Comments Source Future Scheduled 2021-10-04 HEPATITIS B VACCINES Met [facility] Test 14:25:14 (1 of 3 - 3-dose series) [code = HEPATITIS B VACCINES (1 of 3 - 3-dose series)] Future Scheduled 2021-10-04 COVID-19 VACCINE (#1) [facility] Test 14:25:14 [code = COVID-19 VACCINE (#1)] Future Scheduled 2021-10-04 65+ PNEUMOCOCCAL [facility] Test 14:25:14 VACCINE (1 - PCV) [code = 65+ PNEUMOCOCCAL VACCINE (1 - PCV)] Future Scheduled 2021-10-04 DIABETES: RETINAL EYE [facility] Test 14:25:14 EXAM [code = DIABETES: RETINAL EYE EXAM] Future Scheduled 2021-10-04 DIABETIC FOOT EXAM [facility] Test 14:25:14 [code = DIABETIC FOOT EXAM] Future Scheduled 2021-10-04 Hepatitis C screening [facility] Test 14:25:14 (procedure) [code = 889541349] Future Scheduled 2021-10-04 SHINGLES VACCINES (1 Met [facility] Test 14:25:14 of 2) [code = SHINGLES VACCINES (1 of 2)] Future Scheduled 2021-10-04 COLONOSCOPY SCREENING [facility] Test 14:25:14 [code = COLONOSCOPY SCREENING] Future Scheduled 2021-10-04 INFLUENZA VACCINE [facility] Test 14:25:14 [code = INFLUENZA VACCINE] Medication 2021-10-06 docusate 100 mg [facility] 00:00:00 capsule [code = Medical Bran ch 3290547] Medication 2021-10-06 sennosides 8.6 mg [facility] 00:00:00 tablet [code = 400888] [facility] Branch Medication 2021-10-06 levothyroxine 50 mcg [facility] 00:00:00 tablet [code = 205628] [facility] [place] Encounters Start End Encounter Admission Attending Care Care Encounter Source Date/Time Date/Time Type Type Clinicians Facility Department ID 2021-09-22 2021-10-05 Inpatient X NAILA GIRALDO [facility] 1 [id number] [facility] 04:18:00 18:35:00 NAILA GIRALDO itbaron [facility] 2021-09-22 2021-10-05 [facility] CAVANAUGH 1.2.840. 114 [id number] [facility] 04:18:00 18:35:00 Encounter Naila Giraldo [id number] ity [facility] 4.2.7.2.686 Harshad as [id number] [facility] 098 Branch 2021-09-30 2021-09-30 Surgery MAO Giraldo [id number] Univers 06:55:00 11:53:00 Naila HANNAH 350.1.13.10 it y [facility] 4.2.7.2.686 Harshad as [id number] [facility] 103 Branch 2021-09-26 2021-09-26 Telephone Rosio 1.2.840.1 [id number] Methodi 00:00:00 00:00:[address] 3.430.2.7 Hospit a .3.331700 l .8 2021-09-21 2021-09-21 Telephone Kenneth 1.2.840.1 [id number] Methodi 00:00:00 00:00:[address] 3.430.2.7 Hospit a .3.850383 l .8 2021-09-05 2021-09-05 Telephone Kenneth, 1.2.840.1 [id number] Methodi 00:00:00 00:00:[address] 3.430.2.7 Hospit a .3.455351 l .8 2021-08-12 2021-08-12 Telephone Kenneth, 1.2.840.1 [id number] Methodi 00:00:00 00:00:[address] 3.430.2.7 Hospit a .3.947673 l .8 2021-08-01 2021-08-01 Telephone Rosio, 1.2.840.1 [id number] Methodi 00:00:00 00:00:[address] 3.430.2.7 Hospit a .3.211100 l .8 2021-07-25 2021-07-25 Telephone Robert, 1.2.840.1 [id number] Methodi 00:00:00 00:00:[address] [place] [address] 3.430.2.7 Hospit a .3.788768 l .8 2021-07-22 2021-07-22 Orders Kenneth, 1.2.840.1 [id number] Methodi 00:00:00 00:00:00 Only [place] [address]114.1.[address] 3.430.2.7 Hospit a .3.368528 l .8 2021-07-18 2021-07-18 Office Kenneth, 1.2.840.1 [id number] Methodi 15:30:00 16:33:10 Visit Wondiful 98663.1.[address] 3.430.2.7 Hospit a .3.438291 l .8 2021-07-18 2021-07-18 Outpatient KENNETH, [facility] [id number] [place] 00:00:00 00:00:[address] 2021-07-18 2021-07-18 Travel 1.2.840.1 1.2.359.600 [id number] Methodi 00:00:00 00:00:[address] 3.430.2.7 0.2.7.3.698 Ho spita .3.483054 084.8 l .8 2021-07-11 2021-07-11 Telephone Rosio, 1.2.840.1 [id number] Methodi 00:00:00 00:00:[address] 3.430.2.7 Hospit a .3.454391 l .8 2021-07-11 2021-07-11 Telephone Rosio, 1.2.840.1 [id number] Methodi 00:00:00 00:00:[address] 3.430.2.7 Hospit a .3.755832 l .8 2021-07-11 2021-07-11 Travel 1.2.840.1 1.2.374.881 [id number] Methodi 00:00:00 00:00:[address] 3.430.2.7 0.2.7.3.698 Ho spita .3.658456 084.8 l .8 2021-07-01 2021-07-01 Orders Kenneth, 1.2.840.1 [id number] Methodi 00:00:00 00:00:00 Only Wondiful [address]41.1.[address] 3.430.2.7 Hospit a .3.562153 l .8 2021-07-01 2021-07-01 Telephone Kenneth, 1.2.840.1 [id number] Methodi 00:00:00 00:00:[address] 3.430.2.7 Hospit a .3.609911 l .8 2021-07-01 2021-07-01 Telephone Kenneth, 1.2.840.1 [id number] Methodi 00:00:00 00:00:[address] 3.430.2.7 Hospit a .3.606836 l .8 2021-06-30 2021-06-30 Office Kenneth, 1.2.840.1 [id number] Methodi 14:30:00 15:33:50 Visit Wondiful 84185.1.[address] 3.430.2.7 Hospit a .3.381373 l .8 2021-06-30 2021-06-30 Outpatient KENNETH, [facility] [id number] [place] 00:00:00 00:00:[address] 2021-06-30 2021-06-30 Travel 1.2.840.1 1.2.500.207 [id number] Methodi 00:00:00 00:00:[address] 3.430.2.7 0.2.7.3.698 Ho spita .3.386607 084.8 l .8 2021-06-28 2021-06-28 Travel 1.2.840.1 1.2.448.591 [id number] Methodi 00:00:00 00:00:[address] 3.430.2.7 0.2.7.3.698 Ho spita .3.315604 084.8 l .8 Results Test Description Test Time Test Comments Results Result Comments Source POCT GLUCOSE (AUTOMATED) 2021-10-05 22:04:27 Test Item Value Reference Range Interpretation Comme nts POCT GLU (test code = 9218644407) 182 mg/dL 70-110 H Lab Interpretation (test code = 54509-5) Abnormal [facility] GLUCOSE (AUTOMATED)2021-10-05 16:40:47 Test Item Value Reference Range Interpretation Comments POCT GLU (test code = 0074708808) 214 mg/dL 70-110 H Lab Interpretation (test code = Abnormal 21932-8) [facility] GLUCOSE (AUTOMATED)2021-10-05 12:47:38 Test Item Value Reference Range Interpretation Comments POCT GLU (test code = 3343261241) 135 mg/dL 70-110 H Lab Interpretation (test code = Abnormal 81449-3) [facility] GLUCOSE (AUTOMATED)2021-10-05 01:44:30 Test Item Value Reference Range Interpretation Comments POCT GLU (test code = 7535967582) 220 mg/dL 70-110 H Lab Interpretation (test code = Abnormal 40044-7) [facility] GLUCOSE (AUTOMATED)2021-10-04 21:48:33 Test Item Value Reference Range Interpretation Comments POCT GLU (test code = 4959571832) 131 mg/dL 70-110 H Lab Interpretation (test code = Abnormal 07236-4) [facility] GLUCOSE (AUTOMATED)2021-10-04 16:53:05 Test Item Value Reference Range Interpretation Comments POCT GLU (test code = 0091683350) 173 mg/dL 70-110 H Lab Interpretation (test code = Abnormal 90358-7) [facility] GLUCOSE (AUTOMATED)2021-10-04 12:54:01 Test Item Value Reference Range Interpretation Comments POCT GLU (test code = 0187854403) 142 mg/dL 70-110 H Lab Interpretation (test code = Abnormal 33833-0) [facility] GLUCOSE (AUTOMATED)2021-10-04 03:32:52 Test Item Value Reference Range Interpretation Comments POCT GLU (test code = 6818567767) 125 mg/dL 70-110 H Lab Interpretation (test code = Abnormal 49538-3) [facility] GLUCOSE (AUTOMATED)2021-10-03 21:58:40 Test Item Value Reference Range Interpretation Comments POCT GLU (test code = 3481458392) 118 mg/dL 70-110 H Lab Interpretation (test code = Abnormal 48122-6) [facility] GLUCOSE (AUTOMATED)2021-10-03 21:58:40 Test Item Value Reference Range Interpretation Comments POCT GLU (test code = [id number]) 118 mg/dL 70-110 H Lab Interpretation (test code = Abnormal 82155-0) [facility] GLUCOSE (AUTOMATED)2021-10-03 20:54:47 Test Item Value Reference Range Interpretation Comments POCT GLU (test code = [id number]) 89 mg/dL 70-110 Lab Interpretation (test code = Normal 34719-3) [facility] GLUCOSE (AUTOMATED)2021-10-03 20:54:47 Test Item Value Reference Range Interpretation Comments POCT GLU (test code = [id number]) 89 mg/dL 70-110 Lab Interpretation (test code = Normal 30346-8) [facility] GLUCOSE (AUTOMATED)2021-10-03 17:23:02 Test Item Value Reference Range Interpretation Comments POCT GLU (test code = 7522677230) 182 mg/dL 70-110 H Lab Interpretation (test code = Abnormal 70935-3) [facility] GLUCOSE (AUTOMATED)2021-10-03 17:23:02 Test Item Value Reference Range Interpretation Comments POCT GLU (test code = 2249113289) 182 mg/dL 70-110 H Lab Interpretation (test code = Abnormal 95853-8) [facility] GLUCOSE (AUTOMATED)2021-10-03 12:51:00 Test Item Value Reference Range Interpretation Comments POCT GLU (test code = 8087190174) 130 mg/dL 70-110 H Lab Interpretation (test code = Abnormal 40596-9) [facility] GLUCOSE (AUTOMATED)2021-10-03 12:51:00 Test Item Value Reference Range Interpretation Comments POCT GLU (test code = 4266145493) 130 mg/dL 70-110 H Lab Interpretation (test code = Abnormal 89104-2) [facility] METABOLIC PANEL (NA, K, CL, CO2, GLUCOSE, BUN, CREATININE, CA)2021-10-03 08:10:11 Test Item Value Reference Range Interpretation Comments NA (test code = 128 mmol/L 135-145 L 9915284102) K (test code = 5.0 mmol/L 3.5-5 4060453357) CL (test code = 105 mmol/L 98-108 4679249624) CO2 TOTAL (test code = 22 mmol/L 23-31 L 0422542386) AGAP (test code = 2-16 L 6677212667) BUN (test code = 19 mg/dL 7-23 5023591162) GLUCOSE (test code = 110 mg/dL 70-110 7986302478) CREATININE (test code = 1.17 mg/dL 0.6-1.25 4820254570) CALCIUM (test code = 7.7 mg/dL 8.6-10.6 L 6607774214) eGFR (test code = mL/min/1.73m2 9595268815) ONEYDA (test code = ONEYDA) Association of Glomerular Filtration Rate (GFR) and Staging of Kidney Disease* + --+ --+ ------+| GFR (mL/min/1.73 m2) ?| With Kidney Damage ?| ?Without Kidney Damage+ --------+ --------+ +| ?>90 ?| ?Stage one ?| ? Normal ?+ ---+ ---+ -------+| ?60-89 ?| ?Stage two ?| ? Decreased GFR ? + --+ --+ ------+| ?30-59 ?| ?Stage three ?| ? Stage three ? + --+ --+ ------+| ?15-29 ?| ?Stage four ? | ? Stage four ?+ ---+ ---+ -------+| ?<15 (or dialysis) ? ?| ?Stage five ? | ? Stage five ?+ ---+ ---+ -------+ *Each stage assumes the associated GFR level has been in effect for at least three months. ?Stages 1 to 5, with or without kidney disease, indicate chronic kidney disease. Notes: Determination of stages one and two (with eGFR >59mL/min/1.73 m2) requires estimation of kidney damage for at least three months as defined by structural or functional abnormalities of the kidney, manifested by either:Pathological abnormalities or Markers of kidney damage (including abnormalities in the composition of the blood or urine or abnormalities in imaging tests). Lab Interpretation Abnormal (test code = 15041-0) [facility] (NA, K, CL, CO2, GLUCOSE, BUN, CREATININE, CA)2021-10-03 08:10:11 Test Item Value Reference Range Interpretation Comments NA (test code = 128 mmol/L 135-145 L 4221257485) K (test code = 5.0 mmol/L 3.5-5 7041090211) CL (test code = 105 mmol/L 98-108 3347243057) CO2 TOTAL (test code = 22 mmol/L 23-31 L 8021188302) AGAP (test code = 2-16 L 6859183137) BUN (test code = 19 mg/dL 7-23 4485709830) GLUCOSE (test code = 110 mg/dL 70-110 9801841908) CREATININE (test code = 1.17 mg/dL 0.6-1.25 3703937040) CALCIUM (test code = 7.7 mg/dL 8.6-10.6 L 6679931361) eGFR (test code = mL/min/1.73m2 9603159766) ONEYDA (test code = ONEYDA) Association of Glomerular Filtration Rate (GFR) and Staging of Kidney Disease* + --+ --+ ------+| GFR (mL/min/1.73 m2) ?| With Kidney Damage ?| ?Without Kidney Damage+ --------+ --------+ +| ?>90 ?| ?Stage one ?| ? Normal ?+ ---+ ---+ -------+| ?60-89 ?| ?Stage two ?| ? Decreased GFR ? + --+ --+ ------+| ?30-59 ?| ?Stage three ?| ? Stage three ? + --+ --+ ------+| ?15-29 ?| ?Stage four ? | ? Stage four ?+ ---+ ---+ -------+| ?<15 (or dialysis) ? ?| ?Stage five ? | ? Stage five ?+ ---+ ---+ -------+ *Each stage assumes the associated GFR level has been in effect for at least three months. ?Stages 1 to 5, with or without kidney disease, indicate chronic kidney disease. Notes: Determination of stages one and two (with eGFR >59mL/min/1.73 m2) requires estimation of kidney damage for at least three months as defined by structural or functional abnormalities of the kidney, manifested by either:Pathological abnormalities or Markers of kidney damage (including abnormalities in the composition of the blood or urine or abnormalities in imaging tests). Lab Interpretation Abnormal (test code = 37977-1) [facility] WITH [id number] 07:45:52 Test Item Value Reference Range Interpretation Comments WBC (test code = See_Comment [Automated 7990-2) message] The sy stem which generated this result transmitted reference range : 4.20 - 10.70 10*3/?L. The reference range was not used to interpret this result as normal/abnormal . RBC (test code = See_Comment L [Automated 789-8) message] The sy stem which generated this result transmitted reference range : 4.26 - 5.52 10*6/?L. The reference range was not used to interpret this result as normal/abnormal . HGB (test code = 9.0 g/dL 12.2-16.4 L 718-7) HCT (test code = 27.4 % 38.4-49.3 L 4544-3) MCV (test code = 79.9 fL 81.7-95.6 L 787-2) MCH (test code = 26.2 pg 26.1-32.7 785-6) MCHC (test code = 32.8 g/dL 31.2-35 786-4) RDW-SD (test code = 46.7 fL 38.5-51.6 15963-2) RDW-CV (test code = 16.1 % 12.1-15.4 H 788-0) PLT (test code = See_Comment H [Automated 777-3) message] The sy stem which generated this result transmitted reference range : 150 - 328 10*3/ ?L. The reference r jay was not used to interpret this result as normal/abnormal . MPV (test code = 8.5 fL 9.8-13 L 93091-4) NRBC/100 WBC (test See_Comment [Automat ed code = 7973630281) message] The system which generated this result transmitted reference range : 0.0 - 10.0 /100 WBCs. The refer ence range was not u sed to interpret th is result as normal/abnormal . NRBC x10^3 (test code See_Comment [Auto mated = 9468703154) message] The s ystem which generated this result transmitted reference range : 10*3/?L. The reference range was not used to interpret this result as normal/abnormal . GRAN MAT (NEUT) % 54.6 % (test code = 770-8) IMM GRAN % (test code 0.30 % = 6328411554) LYMPH % (test code = 28.0 % 736-9) MONO % (test code = 9.9 % 5905-5) EOS % (test code = 6.6 % 713-8) BASO % (test code = 0.6 % 706-2) GRAN MAT x10^3(ANC) 5.17 10*3/uL 1.99-6.95 (test code = 5886294658) IMM GRAN x10^3 (test 0.03 10*3/uL 0-0.06 code = 6176252232) LYMPH x10^3 (test code 2.66 10*3/uL 1.09-3.23 = 731-0) MONO x10^3 (test code 0.94 10*3/uL 0.36-1.02 = 742-7) EOS x10^3 (test code = 0.63 10*3/uL 0.06-0.53 H 711-2) BASO x10^3 (test code 0.06 10*3/uL 0.01-0.09 = 704-7) Lab Interpretation Abnormal (test code = 17476-2) [facility] WITH [id number] 07:45:52 Test Item Value Reference Range Interpretation Comments WBC (test code = See_Comment [Automated 6690-2) message] The sy stem which generated this result transmitted reference range : 4.20 - 10.70 10*3/?L. The reference range was not used to interpret this result as normal/abnormal . RBC (test code = See_Comment L [Automated 789-8) message] The sy stem which generated this result transmitted reference range : 4.26 - 5.52 10*6/?L. The reference range was not used to interpret this result as normal/abnormal . HGB (test code = 9.0 g/dL 12.2-16.4 L 718-7) HCT (test code = 27.4 % 38.4-49.3 L 4544-3) MCV (test code = 79.9 fL 81.7-95.6 L 787-2) MCH (test code = 26.2 pg 26.1-32.7 785-6) MCHC (test code = 32.8 g/dL 31.2-35 786-4) RDW-SD (test code = 46.7 fL 38.5-51.6 42982-5) RDW-CV (test code = 16.1 % 12.1-15.4 H 788-0) PLT (test code = See_Comment H [Automated 777-3) message] The sy stem which generated this result transmitted reference range : 150 - 328 10*3/ ?L. The reference r jay was not used to interpret this result as normal/abnormal . MPV (test code = 8.5 fL 9.8-13 L 25034-7) NRBC/100 WBC (test See_Comment [Automat ed code = 3020183525) message] The system which generated this result transmitted reference range : 0.0 - 10.0 /100 WBCs. The refer ence range was not u sed to interpret th is result as normal/abnormal . NRBC x10^3 (test code See_Comment [Auto mated = 1682376498) message] The s ystem which generated this result transmitted reference range : 10*3/?L. The reference range was not used to interpret this result as normal/abnormal . GRAN MAT (NEUT) % 54.6 % (test code = 770-8) IMM GRAN % (test code 0.30 % = 0272302692) LYMPH % (test code = 28.0 % 736-9) MONO % (test code = 9.9 % 5905-5) EOS % (test code = 6.6 % 713-8) BASO % (test code = 0.6 % 706-2) GRAN MAT x10^3(ANC) 5.17 10*3/uL 1.99-6.95 (test code = 7310184463) IMM GRAN x10^3 (test 0.03 10*3/uL 0-0.06 code = 0938327602) LYMPH x10^3 (test code 2.66 10*3/uL 1.09-3.23 = 731-0) MONO x10^3 (test code 0.94 10*3/uL 0.36-1.02 = 742-7) EOS x10^3 (test code = 0.63 10*3/uL 0.06-0.53 H 711-2) BASO x10^3 (test code 0.06 10*3/uL 0.01-0.09 = 704-7) Lab Interpretation Abnormal (test code = 67627-6) [facility] GLUCOSE (AUTOMATED)2021-10-03 01:08:15 Test Item Value Reference Range Interpretation Comments POCT GLU (test code = 5860680953) 141 mg/dL 70-110 H Lab Interpretation (test code = Abnormal 75746-3) [facility] GLUCOSE (AUTOMATED)2021-10-03 01:08:15 Test Item Value Reference Range Interpretation Comments POCT GLU (test code = 9334194945) 141 mg/dL 70-110 H Lab Interpretation (test code = Abnormal 50297-4) [facility] GLUCOSE (AUTOMATED)2021-10-02 21:04:17 Test Item Value Reference Range Interpretation Comments POCT GLU (test code = 5392085688) 119 mg/dL 70-110 H Lab Interpretation (test code = Abnormal 95189-3) [facility] GLUCOSE (AUTOMATED)2021-10-02 21:04:17 Test Item Value Reference Range Interpretation Comments POCT GLU (test code = 4252929558) 119 mg/dL 70-110 H Lab Interpretation (test code = Abnormal 54614-7) [facility] GLUCOSE (AUTOMATED)2021-10-02 16:35:07 Test Item Value Reference Range Interpretation Comments POCT GLU (test code = 8386007679) 208 mg/dL 70-110 H Lab Interpretation (test code = Abnormal 15350-5) [facility] GLUCOSE (AUTOMATED)2021-10-02 16:35:07 Test Item Value Reference Range Interpretation Comments POCT GLU (test code = 6863585288) 208 mg/dL 70-110 H Lab Interpretation (test code = Abnormal 35215-8) [facility] [id number] 13:10:48 Test Item Value Reference Range Interpretation Comments RENIN (test code = ng/mL/hr INTERPRET MARIAM INFORMATION: 2915-7) Renin Activity Adult, Normal sodium diet: ?S upine ............... .. 0.2-1.6 ng/mL/hr ?Uprig ht ............... . 0.5-4.0 ng/mL/hr Childr en, Normal sodium diet, Childs pine: ? (1-7 days) .... . 2.0-35.0 ng/mL/hr ?Cord blood ............. 4 .0-32.0 ng/mL/hr ?1-12 mos ............... 2.4-37.0 ng/mL/hr ?13 mo s-3 yrs ........... 1.7 -11.2 ng/mL/hr ?4-5 yrs ...... .......... 1.0- 6.5 ng/mL/ hr ?6-10 yrs ............... 0.5- 5.9 ng/mL/hr ?11-15 yrs .............. 0.5- 3.3 ng/mL/hr Childr en, normal sodium diet, Up right: ?0-3 yrs ........... ..... Not Available ?4-5 yrs ............... . Less than or equal to 15 ng/ mL/hr ?6-10 yrs ........... .... Less than or equal to 17 ng/mL/hr ?11-15 yrs .... .......... Less than or eq ual to 16 ng/mL/hr Plasma renin activity measur es enzyme ability to conv ert angiotensinogen to angiotensin I a nd is limited by the availabi lity of angiotensinogen . Plasma renin activity is not an accurate indicator of en zyme activity when angiotensi nogen is decreased. This test was developed and i ts performance characteristics determined by [employer]. It has not been cleared or approved by the [place] Food and Drug Administration. This test was performed in a CLIA certified laboratory and is intended for clinical purposes.Perfor med By: [employer] [place] [address] [id number] Director: Quan carvalho MD, PhD [facility] [id number] 13:10:48 Test Item Value Reference Range Interpretation Comments RENIN (test code = ng/mL/hr INTERPRET MARIAM INFORMATION: 2915-7) Renin Activity Adult, Normal sodium diet: ?S upine ............... .. 0.2-1.6 ng/mL/hr ?Uprig ht ............... . 0.5-4.0 ng/mL/hr Childr en, Normal sodium diet, Childs pine: ?[place] (1-7 days) .... . 2.0-35.0 ng/mL/hr ?Cord blood ............. 4 .0-32.0 ng/mL/hr ?1-12 mos ............... 2.4-37.0 ng/mL/hr ?13 mo s-3 yrs ........... 1.7 -11.2 ng/mL/hr ?4-5 yrs ...... .......... 1.0- 6.5 ng/mL/ hr ?6-10 yrs ............... 0.5- 5.9 ng/mL/hr ?11-15 yrs .............. 0.5- 3.3 ng/mL/hr Childr en, normal sodium diet, right: ?0-3 yrs ........... ..... Not Available ?4-5 yrs ............... . Less than or equal to 15 ng/ mL/hr ?6-10 yrs ........... .... Less than or equal to 17 ng/mL/hr ?11-15 yrs .... .......... Less than or eq ual to 16 ng/mL/hr Plasma renin activity measur es enzyme ability to conv ert angiotensinogen to angiotensin I a nd is limited by the availabi lity of angiotensinogen . Plasma renin activity is not an accurate indicator of en zyme activity when angiotensi nogen is decreased. This test was developed and i ts performance characteristics determined by [employer] [facility]. It has not been cleared or approved by the [place] Food and Drug Administration. This test was performed in a CLIA certified laboratory and is intended for clinical purposes.Perfor med By: [employer] [place] [id number] Director: Quan carvalho MD, PhD [facility] GLUCOSE (AUTOMATED)2021-10-02 12:48:24 Test Item Value Reference Range Interpretation Comments POCT GLU (test code = 3558188760) 159 mg/dL 70-110 H Lab Interpretation (test code = Abnormal 82274-0) [facility] GLUCOSE (AUTOMATED)2021-10-02 12:48:24 Test Item Value Reference Range Interpretation Comments POCT GLU (test code = 2674745096) 159 mg/dL 70-110 H Lab Interpretation (test code = Abnormal 59396-0) [facility] GLUCOSE (AUTOMATED)2021-10-02 01:43:05 Test Item Value Reference Range Interpretation Comments POCT GLU (test code = 6289388733) 140 mg/dL 70-110 H Lab Interpretation (test code = Abnormal 56319-2) [facility] GLUCOSE (AUTOMATED)2021-10-02 01:43:05 Test Item Value Reference Range Interpretation Comments POCT GLU (test code = 6904226039) 140 mg/dL 70-110 H Lab Interpretation (test code = Abnormal 63406-4) [facility] GLUCOSE (AUTOMATED)2021-10-01 21:57:54 Test Item Value Reference Range Interpretation Comments POCT GLU (test code = 5024678402) 171 mg/dL 70-110 H Lab Interpretation (test code = Abnormal 32118-3) [facility] GLUCOSE (AUTOMATED)2021-10-01 21:57:54 Test Item Value Reference Range Interpretation Comments POCT GLU (test code = 2612526254) 171 mg/dL 70-110 H Lab Interpretation (test code = Abnormal 10043-3) [facility] GLUCOSE (AUTOMATED)2021-10-01 18:19:51 Test Item Value Reference Range Interpretation Comments POCT GLU (test code = 6661134371) 153 mg/dL 70-110 H Lab Interpretation (test code = Abnormal 63231-5) [facility] GLUCOSE (AUTOMATED)2021-10-01 18:19:51 Test Item Value Reference Range Interpretation Comments POCT GLU (test code = 2093962446) 153 mg/dL 70-110 H Lab Interpretation (test code = Abnormal 11064-4) [facility] GLUCOSE (AUTOMATED)2021-10-01 17:10:01 Test Item Value Reference Range Interpretation Comments POCT GLU (test code = 4620147545) 174 mg/dL 70-110 H Lab Interpretation (test code = Abnormal 01123-5) [facility] GLUCOSE (AUTOMATED)2021-10-01 17:10:01 Test Item Value Reference Range Interpretation Comments POCT GLU (test code = 5478792263) 174 mg/dL 70-110 H Lab Interpretation (test code = Abnormal 76090-6) [facility] [id number] 16:45:47 Test Item Value Reference Range Interpretation Comments ALDOST (test code = 18.9 ng/dL INTERPRE TIVE 1763-2) INFORMATION: Aldosterone, Se rum Reference inter vals for age 15 and olde r: Upright ....... .. ?4.0 - 31.0 ng/dL Supi ne .......... ?Les s than or equal to 16.0 n g/dL Unspecified ... .. ?Less than or equal t o 31.0 ng/dL Normal se rum levels of aldos terone are dependent o n the sodium intake a nd whether the pat ient is upright or supi ne. High sodium intake w ill tend to suppress ser um aldosterone, wh ereas low sodium intake w ill elevate serum aldosterone. reference inter vals for serum aldostero ne are based on normal sodium intake. Access complete set of age- and /or gender-specific reference inter vals for this test in [facility] ([employer]).P erformed By: RYANNE morales[address] [place] [address] [id number] aboratory Director: Savana Mackey MD, PhD [facility]DO[facility]ONE, [id number] 16:45:47 Test Item Value Reference Range Interpretation Comments ALDOST (test code = 18.9 ng/dL INTERPRE TIVE 1763-2) INFORMATION: Aldosterone, Se rum Reference inter vals for age 15 and olde r: Upright ....... .. ?4.0 - 31.0 ng/dL Supi ne .......... ?Les s than or equal to 16.0 n g/dL Unspecified ... .. ?Less than or equal t o 31.0 ng/dL Normal se rum levels of aldos terone are dependent o n the sodium intake a nd whether the pat ient is upright or supi ne. High sodium intake w ill tend to suppress ser um aldosterone, wh ereas low sodium intake w ill elevate serum aldosterone. e reference inter vals for serum aldostero ne are based on normal sodium intake. Access complete set of age- and /or gender-specific reference inter vals for this test in [facility] ([employer]).P erformed By: RYANNE Aguilar [address] [id number] aboratory Director: Savana Mackey MD, PhD [facility] GLUCOSE (AUTOMATED)2021-10-01 13:06:39 Test Item Value Reference Range Interpretation Comments POCT GLU (test code = 7350106784) 177 mg/dL 70-110 H Lab Interpretation (test code = Abnormal 68023-7) [facility] GLUCOSE (AUTOMATED)2021-10-01 13:06:39 Test Item Value Reference Range Interpretation Comments POCT GLU (test code = 3787284026) 177 mg/dL 70-110 H Lab Interpretation (test code = Abnormal 83233-3) [facility] GLUCOSE (AUTOMATED)2021-10-01 02:23:50 Test Item Value Reference Range Interpretation Comments POCT GLU (test code = 218 mg/dL 70-110 H Notifi ed Provider [id number]) Lab Interpretation (test Abnormal code = 37729-2) [facility] GLUCOSE (AUTOMATED)2021-10-01 02:23:50 Test Item Value Reference Range Interpretation Comments POCT GLU (test code = 218 mg/dL 70-110 H Notifi ed Provider [id number]) Lab Interpretation (test Abnormal code = 05929-8) [facility] GLUCOSE (AUTOMATED)2021-09-30 23:11:30 Test Item Value Reference Range Interpretation Comments POCT GLU (test code = 3792605065) 168 mg/dL 70-110 H Lab Interpretation (test code = Abnormal 44532-9) [facility] GLUCOSE (AUTOMATED)2021-09-30 23:11:30 Test Item Value Reference Range Interpretation Comments POCT GLU (test code = 2952300329) 168 mg/dL 70-110 H Lab Interpretation (test code = Abnormal 97276-4) [facility] GLUCOSE (AUTOMATED)2021-09-30 11:56:33 Test Item Value Reference Range Interpretation Comments POCT GLU (test code = 7721717837) 101 mg/dL 70-110 Lab Interpretation (test code = Normal 99319-7) [facility] GLUCOSE (AUTOMATED)2021-09-30 11:56:33 Test Item Value Reference Range Interpretation Comments POCT GLU (test code = 1895827948) 101 mg/dL 70-110 Lab Interpretation (test code = Normal 25057-8) [facility] (Lab Only)2021-09-30 07:48:25 Test Item Value Reference Range Interpretation Comments ABO & RH (test code O Positive Performe d at [facility] = 20) Laboratory Serv [facility] [place] [address] s [id number] Free: [phone] A No. [id number] [facility] Confirmation (Lab Only)2021-09-30 07:48:25 Test Item Value Reference Range Interpretation Comments ABO & RH (test code O Positive Performe d at [facility] = 20) Laboratory Serv [facility] [address] [place] [address] s [id number] Free: [phone] A No. [id number] [facility] - ONCE [id number] 07:45:50 Test Item Value Reference Range Interpretation Comments ABO & RH (test code O POSITIVE Performe d at [facility] = 20) Laboratory Serv [facility] [address] [place] [address] s [address]Rcys Free: [phone] A No. [id number] IAT (test code = Negative Performed a t [facility] 1185) Laboratory Serv [facility] [address] [facility] [address]Hexv Free: [phone] A No. [id number] [facility] - ONCE [id number] 07:45:50 Test Item Value Reference Range Interpretation Comments ABO & RH (test code O POSITIVE Performe d at [facility] = 20) Laboratory Serv [facility] Blood [facility] [address] [place] [address]Lisp Free: [phone] A No. [id number] IAT (test code = Negative Performed a t [facility] 1185) Laboratory Serv [facility] Blood [facility] [address] [place] [address]Oaqk Free: [phone] A No. [id number] [facility] GLUCOSE (AUTOMATED)2021-09-30 01:27:06 Test Item Value Reference Range Interpretation Comments POCT GLU (test code = 3083337839) 173 mg/dL 70-110 H Lab Interpretation (test code = Abnormal 98700-1) [facility] GLUCOSE (AUTOMATED)2021-09-30 01:27:06 Test Item Value Reference Range Interpretation Comments POCT GLU (test code = 1794731094) 173 mg/dL 70-110 H Lab Interpretation (test code = Abnormal 80687-3) [facility] GLUCOSE (AUTOMATED)2021-09-29 21:45:35 Test Item Value Reference Range Interpretation Comments POCT GLU (test code = 6115520902) 153 mg/dL 70-110 H Lab Interpretation (test code = Abnormal 14196-8) [facility] GLUCOSE (AUTOMATED)2021-09-29 21:45:35 Test Item Value Reference Range Interpretation Comments POCT GLU (test code = 7872422397) 153 mg/dL 70-110 H Lab Interpretation (test code = Abnormal 34809-6) [facility] GLUCOSE (AUTOMATED)2021-09-29 17:42:22 Test Item Value Reference Range Interpretation Comments POCT GLU (test code = 9754041148) 143 mg/dL 70-110 H Lab Interpretation (test code = Abnormal 20577-0) [facility] GLUCOSE (AUTOMATED)2021-09-29 17:42:22 Test Item Value Reference Range Interpretation Comments POCT GLU (test code = 8311254910) 143 mg/dL 70-110 H Lab Interpretation (test code = Abnormal 98023-1) [facility] GLUCOSE (AUTOMATED)2021-09-29 14:18:46 Test Item Value Reference Range Interpretation Comments POCT GLU (test code = 7051815184) 133 mg/dL 70-110 H Lab Interpretation (test code = Abnormal 40585-7) [facility] GLUCOSE (AUTOMATED)2021-09-29 14:18:46 Test Item Value Reference Range Interpretation Comments POCT GLU (test code = 4517416166) 133 mg/dL 70-110 H Lab Interpretation (test code = Abnormal 87597-8) [facility] GLUCOSE (AUTOMATED)2021-09-29 02:31:38 Test Item Value Reference Range Interpretation Comments POCT GLU (test code = 157 mg/dL 70-110 H Notifi ed Provider [id number]) Lab Interpretation (test Abnormal code = 99444-9) [facility] GLUCOSE (AUTOMATED)2021-09-29 02:31:38 Test Item Value Reference Range Interpretation Comments POCT GLU (test code = 157 mg/dL 70-110 H Notifi ed Provider [id number]) Lab Interpretation (test Abnormal code = 37048-1) [facility] GLUCOSE (AUTOMATED)2021-09-28 22:01:54 Test Item Value Reference Range Interpretation Comments POCT GLU (test code = 9557770296) 204 mg/dL 70-110 H Lab Interpretation (test code = Abnormal 97200-3) [facility] GLUCOSE (AUTOMATED)2021-09-28 22:01:54 Test Item Value Reference Range Interpretation Comments POCT GLU (test code = 7996351304) 204 mg/dL 70-110 H Lab Interpretation (test code = Abnormal 53972-2) [facility] METABOLIC PANEL (NA, K, CL, CO2, GLUCOSE, BUN, CREATININE, CA)2021-09-28 17:55:06 Test Item Value Reference Range Interpretation Comments NA (test code = 128 mmol/L 135-145 L 2687501287) K (test code = 5.4 mmol/L 3.5-5 H 1828180903) CL (test code = 101 mmol/L 98-108 5121842695) CO2 TOTAL (test code = 23 mmol/L 23-31 5393273990) AGAP (test code = 2-16 5875092494) BUN (test code = 25 mg/dL 7-23 H 8496680704) GLUCOSE (test code = 142 mg/dL 70-110 H 4695933012) CREATININE (test code = 1.24 mg/dL 0.6-1.25 1823853922) CALCIUM (test code = 8.3 mg/dL 8.6-10.6 L 4730460294) eGFR (test code = mL/min/1.73m2 3629108895) ONEYDA (test code = ONEYDA) Association of Glomerular Filtration Rate (GFR) and Staging of Kidney Disease* + --+ --+ ------+| GFR (mL/min/1.73 m2) ?| With Kidney Damage ?| ?Without Kidney Damage+ --------+ --------+ +| ?>90 ?| ?Stage one ?| ? Normal ?+ ---+ ---+ -------+| ?60-89 ?| ?Stage two ?| ? Decreased GFR ? + --+ --+ ------+| ?30-59 ?| ?Stage three ?| ? Stage three ? + --+ --+ ------+| ?15-29 ?| ?Stage four ? | ? Stage four ?+ ---+ ---+ -------+| ?<15 (or dialysis) ? ?| ?Stage five ? | ? Stage five ?+ ---+ ---+ -------+ *Each stage assumes the associated GFR level has been in effect for at least three months. ?Stages 1 to 5, with or without kidney disease, indicate chronic kidney disease. Notes: Determination of stages one and two (with eGFR >59mL/min/1.73 m2) requires estimation of kidney damage for at least three months as defined by structural or functional abnormalities of the kidney, manifested by either:Pathological abnormalities or Markers of kidney damage (including abnormalities in the composition of the blood or urine or abnormalities in imaging tests). Lab Interpretation Abnormal (test code = 61722-6) [facility] METABOLIC PANEL (NA, K, CL, CO2, GLUCOSE, BUN, CREATININE, CA)2021-09-28 17:55:06 Test Item Value Reference Range Interpretation Comments NA (test code = 128 mmol/L 135-145 L 4516536750) K (test code = 5.4 mmol/L 3.5-5 H 7472751430) CL (test code = 101 mmol/L 98-108 5290328695) CO2 TOTAL (test code = 23 mmol/L 23-31 2720560525) AGAP (test code = 2-16 3258096399) BUN (test code = 25 mg/dL 7-23 H 9356113021) GLUCOSE (test code = 142 mg/dL 70-110 H 8909474440) CREATININE (test code = 1.24 mg/dL 0.6-1.25 9460083832) CALCIUM (test code = 8.3 mg/dL 8.6-10.6 L 1737288562) eGFR (test code = mL/min/1.73m2 4309152675) ONEYDA (test code = ONEYDA) Association of Glomerular Filtration Rate (GFR) and Staging of Kidney Disease* + --+ --+ ------+| GFR (mL/min/1.73 m2) ?| With Kidney Damage ?| ?Without Kidney Damage+ --------+ --------+ +| ?>90 ?| ?Stage one ?| ? Normal ?+ ---+ ---+ -------+| ?60-89 ?| ?Stage two ?| ? Decreased GFR ? + --+ --+ ------+| ?30-59 ?| ?Stage three ?| ? Stage three ? + --+ --+ ------+| ?15-29 ?| ?Stage four ? | ? Stage four ?+ ---+ ---+ -------+| ?<15 (or dialysis) ? ?| ?Stage five ? | ? Stage five ?+ ---+ ---+ -------+ *Each stage assumes the associated GFR level has been in effect for at least three months. ?Stages 1 to 5, with or without kidney disease, indicate chronic kidney disease. Notes: Determination of stages one and two (with eGFR >59mL/min/1.73 m2) requires estimation of kidney damage for at least three months as defined by structural or functional abnormalities of the kidney, manifested by either:Pathological abnormalities or Markers of kidney damage (including abnormalities in the composition of the blood or urine or abnormalities in imaging tests). Lab Interpretation Abnormal (test code = 70141-1) [facility] GLUCOSE (AUTOMATED)2021-09-28 16:24:23 Test Item Value Reference Range Interpretation Comments POCT GLU (test code = 3587600799) 142 mg/dL 70-110 H Lab Interpretation (test code = Abnormal 18474-3) [facility] GLUCOSE (AUTOMATED)2021-09-28 16:24:23 Test Item Value Reference Range Interpretation Comments POCT GLU (test code = 1971721270) 142 mg/dL 70-110 H Lab Interpretation (test code = Abnormal 36737-8) [facility] GLUCOSE (AUTOMATED)2021-09-28 12:27:11 Test Item Value Reference Range Interpretation Comments POCT GLU (test code = 1393500451) 96 mg/dL 70-110 Lab Interpretation (test code = Normal 83351-4) [facility] GLUCOSE (AUTOMATED)2021-09-28 12:27:11 Test Item Value Reference Range Interpretation Comments POCT GLU (test code = 8249847815) 96 mg/dL 70-110 Lab Interpretation (test code = Normal 63845-4) [facility] GLUCOSE (AUTOMATED)2021-09-28 01:03:38 Test Item Value Reference Range Interpretation Comments POCT GLU (test code = 8582560581) 179 mg/dL 70-110 H Lab Interpretation (test code = Abnormal 84508-3) [facility] GLUCOSE (AUTOMATED)2021-09-28 01:03:38 Test Item Value Reference Range Interpretation Comments POCT GLU (test code = 0709913926) 179 mg/dL 70-110 H Lab Interpretation (test code = Abnormal 69700-5) [facility] GLUCOSE (AUTOMATED)2021-09-27 21:24:19 Test Item Value Reference Range Interpretation Comments POCT GLU (test code = 6338556548) 130 mg/dL 70-110 H Lab Interpretation (test code = Abnormal 10097-9) [facility] GLUCOSE (AUTOMATED)2021-09-27 21:24:19 Test Item Value Reference Range Interpretation Comments POCT GLU (test code = 5952643074) 130 mg/dL 70-110 H Lab Interpretation (test code = Abnormal 37436-4) [facility] GLUCOSE (AUTOMATED)2021-09-27 17:14:17 Test Item Value Reference Range Interpretation Comments POCT GLU (test code = 8748991455) 167 mg/dL 70-110 H Lab Interpretation (test code = Abnormal 96529-9) [facility] GLUCOSE (AUTOMATED)2021-09-27 17:14:17 Test Item Value Reference Range Interpretation Comments POCT GLU (test code = 7885054966) 167 mg/dL 70-110 H Lab Interpretation (test code = Abnormal 96466-9) [facility] GLUCOSE (AUTOMATED)2021-09-27 13:44:12 Test Item Value Reference Range Interpretation Comments POCT GLU (test code = 5571259107) 110 mg/dL 70-110 Lab Interpretation (test code = Normal 61003-5) [facility] GLUCOSE (AUTOMATED)2021-09-27 13:44:12 Test Item Value Reference Range Interpretation Comments POCT GLU (test code = 6111806345) 110 mg/dL 70-110 Lab Interpretation (test code = Normal 34041-7) [facility] METABOLIC PANEL (NA, K, CL, CO2, GLUCOSE, BUN, CREATININE, CA)2021-09-27 07:50:51 Test Item Value Reference Range Interpretation Comments NA (test code = 128 mmol/L 135-145 L 9684121084) K (test code = 4.9 mmol/L 3.5-5 1882440310) CL (test code = 101 mmol/L 98-108 8401755259) CO2 TOTAL (test code = 24 mmol/L 23-31 7659366592) AGAP (test code = 2-16 1915520116) BUN (test code = 19 mg/dL 7-23 0541660449) GLUCOSE (test code = 118 mg/dL 70-110 H 6096306829) CREATININE (test code = 1.15 mg/dL 0.6-1.25 9820149857) CALCIUM (test code = 8.3 mg/dL 8.6-10.6 L 1452563523) eGFR (test code = mL/min/1.73m2 5199287292) ONEYDA (test code = ONEYDA) Association of Glomerular Filtration Rate (GFR) and Staging of Kidney Disease* + --+ --+ ------+| GFR (mL/min/1.73 m2) ?| With Kidney Damage ?| ?Without Kidney Damage+ --------+ --------+ +| ?>90 ?| ?Stage one ?| ? Normal ?+ ---+ ---+ -------+| ?60-89 ?| ?Stage two ?| ? Decreased GFR ? + --+ --+ ------+| ?30-59 ?| ?Stage three ?| ? Stage three ? + --+ --+ ------+| ?15-29 ?| ?Stage four ? | ? Stage four ?+ ---+ ---+ -------+| ?<15 (or dialysis) ? ?| ?Stage five ? | ? Stage five ?+ ---+ ---+ -------+ *Each stage assumes the associated GFR level has been in effect for at least three months. ?Stages 1 to 5, with or without kidney disease, indicate chronic kidney disease. Notes: Determination of stages one and two (with eGFR >59mL/min/1.73 m2) requires estimation of kidney damage for at least three months as defined by structural or functional abnormalities of the kidney, manifested by either:Pathological abnormalities or Markers of kidney damage (including abnormalities in the composition of the blood or urine or abnormalities in imaging tests). Lab Interpretation Abnormal (test code = 90958-2) [facility] METABOLIC PANEL (NA, K, CL, CO2, GLUCOSE, BUN, CREATININE, CA)2021-09-27 07:50:51 Test Item Value Reference Range Interpretation Comments NA (test code = 128 mmol/L 135-145 L 6612066042) K (test code = 4.9 mmol/L 3.5-5 4822768270) CL (test code = 101 mmol/L 98-108 3803957498) CO2 TOTAL (test code = 24 mmol/L 23-31 9912323794) AGAP (test code = 2-16 6973406165) BUN (test code = 19 mg/dL 7-23 9472235118) GLUCOSE (test code = 118 mg/dL 70-110 H 1199564622) CREATININE (test code = 1.15 mg/dL 0.6-1.25 3008604560) CALCIUM (test code = 8.3 mg/dL 8.6-10.6 L 3519704020) eGFR (test code = mL/min/1.73m2 7732920356) ONEYDA (test code = ONEYDA) Association of Glomerular Filtration Rate (GFR) and Staging of Kidney Disease* + --+ --+ ------+| GFR (mL/min/1.73 m2) ?| With Kidney Damage ?| ?Without Kidney Damage+ --------+ --------+ +| ?>90 ?| ?Stage one ?| ? Normal ?+ ---+ ---+ -------+| ?60-89 ?| ?Stage two ?| ? Decreased GFR ? + --+ --+ ------+| ?30-59 ?| ?Stage three ?| ? Stage three ? + --+ --+ ------+| ?15-29 ?| ?Stage four ? | ? Stage four ?+ ---+ ---+ -------+| ?<15 (or dialysis) ? ?| ?Stage five ? | ? Stage five ?+ ---+ ---+ -------+ *Each stage assumes the associated GFR level has been in effect for at least three months. ?Stages 1 to 5, with or without kidney disease, indicate chronic kidney disease. Notes: Determination of stages one and two (with eGFR >59mL/min/1.73 m2) requires estimation of kidney damage for at least three months as defined by structural or functional abnormalities of the kidney, manifested by either:Pathological abnormalities or Markers of kidney damage (including abnormalities in the composition of the blood or urine or abnormalities in imaging tests). Lab Interpretation Abnormal (test code = 86226-9) [facility] WITH [id number] 07:40:13 Test Item Value Reference Range Interpretation Comments WBC (test code = See_Comment H [Automated 7690-2) message] The sy stem which generated this result transmitted reference range : 4.20 - 10.70 10*3/?L. The reference range was not used to interpret this result as normal/abnormal . RBC (test code = See_Comment L [Automated 369-8) message] The sy stem which generated this result transmitted reference range : 4.26 - 5.52 10*6/?L. The reference range was not used to interpret this result as normal/abnormal . HGB (test code = 10.2 g/dL 12.2-16.4 L 718-7) HCT (test code = 31.1 % 38.4-49.3 L 4544-3) MCV (test code = 79.7 fL 81.7-95.6 L 787-2) MCH (test code = 26.2 pg 26.1-32.7 785-6) MCHC (test code = 32.8 g/dL 31.2-35 786-4) RDW-SD (test code = 46.2 fL 38.5-51.6 63073-0) RDW-CV (test code = 15.9 % 12.1-15.4 H 788-0) PLT (test code = See_Comment H [Automated 777-3) message] The sy stem which generated this result transmitted reference range : 150 - 328 10*3/ ?L. The reference r jay was not used to interpret this result as normal/abnormal . MPV (test code = 8.4 fL 9.8-13 L 96480-1) NRBC/100 WBC (test See_Comment [Automat ed code = 7650838721) message] The system which generated this result transmitted reference range : 0.0 - 10.0 /100 WBCs. The refer ence range was not u sed to interpret th is result as normal/abnormal . NRBC x10^3 (test code See_Comment [Auto mated = 3398514952) message] The s ystem which generated this result transmitted reference range : 10*3/?L. The reference range was not used to interpret this result as normal/abnormal . GRAN MAT (NEUT) % 59.6 % (test code = 770-8) IMM GRAN % (test code 0.50 % = 8019446255) LYMPH % (test code = 24.4 % 736-9) MONO % (test code = 8.3 % 5905-5) EOS % (test code = 6.6 % 713-8) BASO % (test code = 0.6 % 706-2) GRAN MAT x10^3(ANC) 7.15 10*3/uL 1.99-6.95 H (test code = 4680641994) IMM GRAN x10^3 (test 0.06 10*3/uL 0-0.06 code = 7330399758) LYMPH x10^3 (test code 2.93 10*3/uL 1.09-3.23 = 731-0) MONO x10^3 (test code 0.99 10*3/uL 0.36-1.02 = 742-7) EOS x10^3 (test code = 0.79 10*3/uL 0.06-0.53 H 711-2) BASO x10^3 (test code 0.07 10*3/uL 0.01-0.09 = 704-7) Lab Interpretation Abnormal (test code = 44572-3) [facility] WITH [id number] 07:40:13 Test Item Value Reference Range Interpretation Comments WBC (test code = See_Comment H [Automated 6690-2) message] The sy stem which generated this result transmitted reference range : 4.20 - 10.70 10*3/?L. The reference range was not used to interpret this result as normal/abnormal . RBC (test code = See_Comment L [Automated 789-8) message] The sy stem which generated this result transmitted reference range : 4.26 - 5.52 10*6/?L. The reference range was not used to interpret this result as normal/abnormal . HGB (test code = 10.2 g/dL 12.2-16.4 L 718-7) HCT (test code = 31.1 % 38.4-49.3 L 4544-3) MCV (test code = 79.7 fL 81.7-95.6 L 787-2) MCH (test code = 26.2 pg 26.1-32.7 785-6) MCHC (test code = 32.8 g/dL 31.2-35 786-4) RDW-SD (test code = 46.2 fL 38.5-51.6 15229-0) RDW-CV (test code = 15.9 % 12.1-15.4 H 788-0) PLT (test code = See_Comment H [Automated 777-3) message] The sy stem which generated this result transmitted reference range : 150 - 328 10*3/ ?L. The reference r jay was not used to interpret this result as normal/abnormal . MPV (test code = 8.4 fL 9.8-13 L 43723-9) NRBC/100 WBC (test See_Comment [Automat ed code = 1635261252) message] The system which generated this result transmitted reference range : 0.0 - 10.0 /100 WBCs. The refer ence range was not u sed to interpret th is result as normal/abnormal . NRBC x10^3 (test code See_Comment [Auto mated = 8469841062) message] The s ystem which generated this result transmitted reference range : 10*3/?L. The reference range was not used to interpret this result as normal/abnormal . GRAN MAT (NEUT) % 59.6 % (test code = 770-8) IMM GRAN % (test code 0.50 % = 4062100614) LYMPH % (test code = 24.4 % 736-9) MONO % (test code = 8.3 % 5905-5) EOS % (test code = 6.6 % 713-8) BASO % (test code = 0.6 % 706-2) GRAN MAT x10^3(ANC) 7.15 10*3/uL 1.99-6.95 H (test code = 7195592648) IMM GRAN x10^3 (test 0.06 10*3/uL 0-0.06 code = 6160488313) LYMPH x10^3 (test code 2.93 10*3/uL 1.09-3.23 = 731-0) MONO x10^3 (test code 0.99 10*3/uL 0.36-1.02 = 742-7) EOS x10^3 (test code = 0.79 10*3/uL 0.06-0.53 H 711-2) BASO x10^3 (test code 0.07 10*3/uL 0.01-0.09 = 704-7) Lab Interpretation Abnormal (test code = 49020-7) [facility] GLUCOSE (AUTOMATED)2021-09-27 02:03:09 Test Item Value Reference Range Interpretation Comments POCT GLU (test code = 5424196395) 132 mg/dL 70-110 H Lab Interpretation (test code = Abnormal 02442-3) [facility] GLUCOSE (AUTOMATED)2021-09-27 02:03:09 Test Item Value Reference Range Interpretation Comments POCT GLU (test code = 5409430828) 132 mg/dL 70-110 H Lab Interpretation (test code = Abnormal 66930-2) [facility] GLUCOSE (AUTOMATED)2021-09-26 21:25:08 Test Item Value Reference Range Interpretation Comments POCT GLU (test code = 1068554206) 215 mg/dL 70-110 H Lab Interpretation (test code = Abnormal 51506-5) [facility] GLUCOSE (AUTOMATED)2021-09-26 21:25:08 Test Item Value Reference Range Interpretation Comments POCT GLU (test code = 8896764724) 215 mg/dL 70-110 H Lab Interpretation (test code = Abnormal 35916-0) [facility] GLUCOSE (AUTOMATED)2021-09-26 18:06:23 Test Item Value Reference Range Interpretation Comments POCT GLU (test code = 0163418283) 126 mg/dL 70-110 H Lab Interpretation (test code = Abnormal 96379-3) [facility] GLUCOSE (AUTOMATED)2021-09-26 18:06:23 Test Item Value Reference Range Interpretation Comments POCT GLU (test code = 2719436833) 126 mg/dL 70-110 H Lab Interpretation (test code = Abnormal 15013-4) [facility] GLUCOSE (AUTOMATED)2021-09-26 15:07:29 Test Item Value Reference Range Interpretation Comments POCT GLU (test code = 4726526747) 118 mg/dL 70-110 H Lab Interpretation (test code = Abnormal 94179-6) [facility] GLUCOSE (AUTOMATED)2021-09-26 15:07:29 Test Item Value Reference Range Interpretation Comments POCT GLU (test code = 0745364398) 118 mg/dL 70-110 H Lab Interpretation (test code = Abnormal 61832-5) [facility] GLUCOSE (AUTOMATED)2021-09-26 15:07:29 Test Item Value Reference Range Interpretation Comments POCT GLU (test code = 0501213189) 120 mg/dL 70-110 H Lab Interpretation (test code = Abnormal 29763-6) [facility] GLUCOSE (AUTOMATED)2021-09-26 15:07:29 Test Item Value Reference Range Interpretation Comments POCT GLU (test code = 3555278660) 120 mg/dL 70-110 H Lab Interpretation (test code = Abnormal 51156-2) [facility] GLUCOSE (AUTOMATED)2021-09-26 15:05:57 Test Item Value Reference Range Interpretation Comments POCT GLU (test code = 7845215939) 161 mg/dL 70-110 H Lab Interpretation (test code = Abnormal 87237-6) [facility] GLUCOSE (AUTOMATED)2021-09-26 15:05:57 Test Item Value Reference Range Interpretation Comments POCT GLU (test code = 2335187806) 161 mg/dL 70-110 H Lab Interpretation (test code = Abnormal 97023-5) [facility] GLUCOSE (AUTOMATED)2021-09-26 15:05:12 Test Item Value Reference Range Interpretation Comments POCT GLU (test code = 3158893248) 144 mg/dL 70-110 H Lab Interpretation (test code = Abnormal 37229-9) [facility] GLUCOSE (AUTOMATED)2021-09-26 15:05:12 Test Item Value Reference Range Interpretation Comments POCT GLU (test code = 9901126518) 144 mg/dL 70-110 H Lab Interpretation (test code = Abnormal 23897-3) [facility] GLUCOSE (AUTOMATED)2021-09-24 01:30:27 Test Item Value Reference Range Interpretation Comments POCT GLU (test code = 205 mg/dL 70-110 H Notifi ed Provider [id number]) Lab Interpretation (test Abnormal code = 85115-0) [facility] GLUCOSE (AUTOMATED)2021-09-24 01:30:27 Test Item Value Reference Range Interpretation Comments POCT GLU (test code = 205 mg/dL 70-110 H Notifi ed Provider 7142390751) Lab Interpretation (test Abnormal code = 96826-2) [facility] GLUCOSE (AUTOMATED)2021-09-23 21:36:27 Test Item Value Reference Range Interpretation Comments POCT GLU (test code = 5545833294) 272 mg/dL 70-110 H Lab Interpretation (test code = Abnormal 75083-2) [facility] GLUCOSE (AUTOMATED)2021-09-23 21:36:27 Test Item Value Reference Range Interpretation Comments POCT GLU (test code = 5234680287) 272 mg/dL 70-110 H Lab Interpretation (test code = Abnormal 81002-7) [facility] GLUCOSE (AUTOMATED)2021-09-23 17:39:15 Test Item Value Reference Range Interpretation Comments POCT GLU (test code = 7796835358) 242 mg/dL 70-110 H Lab Interpretation (test code = Abnormal 45266-8) [facility] GLUCOSE (AUTOMATED)2021-09-23 17:39:15 Test Item Value Reference Range Interpretation Comments POCT GLU (test code = 6601845268) 242 mg/dL 70-110 H Lab Interpretation (test code = Abnormal 31362-4) [id number] 15:34:07 Test Item Value Reference Range Interpretation Comments TSH (test code = See_Comment H Biotin has been 6714688560) reported to cau se a negative bias, interpret resul ts relative to pat ient's use of biotin. [Automated mess age] The system [employer] generated this result transmitted ref erence range: 0.45 - 4 .70 mIU/L. The refe rence range was not u sed to interpret this result as normal/abnor mal. Lab Interpretation (test Abnormal code = 95664-2) [facility] [id number] 15:34:07 Test Item Value Reference Range Interpretation Comments TSH (test code = See_Comment H Biotin has been 2084467284) reported to cau se a negative bias, interpret resul ts relative to pat ient's use of biotin. [Automated mess age] The system [employer] generated this result transmitted ref erence range: 0.45 - 4 .70 mIU/L. The refe rence range was not u sed to interpret this result as normal/abnor mal. Lab Interpretation (test Abnormal code = 17429-6) [facility] GLUCOSE (AUTOMATED)2021-09-23 14:13:27 Test Item Value Reference Range Interpretation Comments POCT GLU (test code = 9817248458) 151 mg/dL 70-110 H Lab Interpretation (test code = Abnormal 68879-2) [facility] GLUCOSE (AUTOMATED)2021-09-23 14:13:27 Test Item Value Reference Range Interpretation Comments POCT GLU (test code = 5966522620) 151 mg/dL 70-110 H Lab Interpretation (test code = Abnormal 88231-5) [facility] METABOLIC PANEL (NA, K, CL, CO2, GLUCOSE, BUN, CREATININE, CA)2021-09-23 12:10:27 Test Item Value Reference Range Interpretation Comments NA (test code = 133 mmol/L 135-145 L 7114760724) K (test code = 3.9 mmol/L 3.5-5 7190936371) CL (test code = 107 mmol/L 98-108 5135183410) CO2 TOTAL (test code = 23 mmol/L 23-31 7945011527) AGAP (test code = 2-16 9467336505) BUN (test code = 23 mg/dL 7-23 8367093458) GLUCOSE (test code = 141 mg/dL 70-110 H 1660919834) CREATININE (test code = 1.10 mg/dL 0.6-1.25 4515498103) CALCIUM (test code = 8.0 mg/dL 8.6-10.6 L 9172424504) eGFR (test code = mL/min/1.73m2 5272865076) ONEYDA (test code = ONEYDA) Association of Glomerular Filtration Rate (GFR) and Staging of Kidney Disease* + --+ --+ ------+| GFR (mL/min/1.73 m2) ?| With Kidney Damage ?| ?Without Kidney Damage+ --------+ --------+ +| ?>90 ?| ?Stage one ?| ? Normal ?+ ---+ ---+ -------+| ?60-89 ?| ?Stage two ?| ? Decreased GFR ? + --+ --+ ------+| ?30-59 ?| ?Stage three ?| ? Stage three ? + --+ --+ ------+| ?15-29 ?| ?Stage four ? | ? Stage four ?+ ---+ ---+ -------+| ?<15 (or dialysis) ? ?| ?Stage five ? | ? Stage five ?+ ---+ ---+ -------+ *Each stage assumes the associated GFR level has been in effect for at least three months. ?Stages 1 to 5, with or without kidney disease, indicate chronic kidney disease. Notes: Determination of stages one and two (with eGFR >59mL/min/1.73 m2) requires estimation of kidney damage for at least three months as defined by structural or functional abnormalities of the kidney, manifested by either:Pathological abnormalities or Markers of kidney damage (including abnormalities in the composition of the blood or urine or abnormalities in imaging tests). Lab Interpretation Abnormal (test code = 44539-0) [facility] METABOLIC PANEL (NA, K, CL, CO2, GLUCOSE, BUN, CREATININE, CA)2021-09-23 12:10:27 Test Item Value Reference Range Interpretation Comments NA (test code = 133 mmol/L 135-145 L 2624450587) K (test code = 3.9 mmol/L 3.5-5 9359826436) CL (test code = 107 mmol/L 98-108 4271775194) CO2 TOTAL (test code = 23 mmol/L 23-31 9501048513) AGAP (test code = 2-16 7076333374) BUN (test code = 23 mg/dL 7-23 1763941604) GLUCOSE (test code = 141 mg/dL 70-110 H 0375252399) CREATININE (test code = 1.10 mg/dL 0.6-1.25 7656815843) CALCIUM (test code = 8.0 mg/dL 8.6-10.6 L 5635671976) eGFR (test code = mL/min/1.73m2 8092850917) ONEYDA (test code = ONEYDA) Association of Glomerular Filtration Rate (GFR) and Staging of Kidney Disease* + --+ --+ ------+| GFR (mL/min/1.73 m2) ?| With Kidney Damage ?| ?Without Kidney Damage+ --------+ --------+ +| ?>90 ?| ?Stage one ?| ? Normal ?+ ---+ ---+ -------+| ?60-89 ?| ?Stage two ?| ? Decreased GFR ? + --+ --+ ------+| ?30-59 ?| ?Stage three ?| ? Stage three ? + --+ --+ ------+| ?15-29 ?| ?Stage four ? | ? Stage four ?+ ---+ ---+ -------+| ?<15 (or dialysis) ? ?| ?Stage five ? | ? Stage five ?+ ---+ ---+ -------+ *Each stage assumes the associated GFR level has been in effect for at least three months. ?Stages 1 to 5, with or without kidney disease, indicate chronic kidney disease. Notes: Determination of stages one and two (with eGFR >59mL/min/1.73 m2) requires estimation of kidney damage for at least three months as defined by structural or functional abnormalities of the kidney, manifested by either:Pathological abnormalities or Markers of kidney damage (including abnormalities in the composition of the blood or urine or abnormalities in imaging tests). Lab Interpretation Abnormal (test code = 85113-6) [facility] WITH [id number] 10:48:01 Test Item Value Reference Range Interpretation Comments WBC (test code = See_Comment [Automated 6690-2) message] The sy stem which generated this result transmitted reference range : 4.20 - 10.70 10*3/?L. The reference range was not used to interpret this result as normal/abnormal . RBC (test code = See_Comment L [Automated 789-8) message] The sy stem which generated this result transmitted reference range : 4.26 - 5.52 10*6/?L. The reference range was not used to interpret this result as normal/abnormal . HGB (test code = 10.3 g/dL 12.2-16.4 L 718-7) HCT (test code = 32.4 % 38.4-49.3 L 4544-3) MCV (test code = 80.4 fL 81.7-95.6 L 787-2) MCH (test code = 25.6 pg 26.1-32.7 L 785-6) MCHC (test code = 31.8 g/dL 31.2-35 786-4) RDW-SD (test code = 45.3 fL 38.5-51.6 87905-5) RDW-CV (test code = 15.6 % 12.1-15.4 H 788-0) PLT (test code = See_Comment H [Automated 777-3) message] The sy stem which generated this result transmitted reference range : 150 - 328 10*3/ ?L. The reference r jay was not used to interpret this result as normal/abnormal . MPV (test code = 8.3 fL 9.8-13 L 51609-7) NRBC/100 WBC (test See_Comment [Automat ed code = 1184077139) message] The system which generated this result transmitted reference range : 0.0 - 10.0 /100 WBCs. The refer ence range was not u sed to interpret th is result as normal/abnormal . NRBC x10^3 (test code See_Comment [Auto mated = 7304189506) message] The s ystem which generated this result transmitted reference range : 10*3/?L. The reference range was not used to interpret this result as normal/abnormal . GRAN MAT (NEUT) % 61.6 % (test code = 770-8) IMM GRAN % (test code 0.50 % = 3958535204) LYMPH % (test code = 22.7 % 736-9) MONO % (test code = 8.8 % 5905-5) EOS % (test code = 5.8 % 713-8) BASO % (test code = 0.6 % 706-2) GRAN MAT x10^3(ANC) 6.48 10*3/uL 1.99-6.95 (test code = 2091418004) IMM GRAN x10^3 (test 0.05 10*3/uL 0-0.06 code = 3895756617) LYMPH x10^3 (test code 2.38 10*3/uL 1.09-3.23 = 731-0) MONO x10^3 (test code 0.92 10*3/uL 0.36-1.02 = 742-7) EOS x10^3 (test code = 0.61 10*3/uL 0.06-0.53 H 711-2) BASO x10^3 (test code 0.06 10*3/uL 0.01-0.09 = 704-7) Lab Interpretation Abnormal (test code = 79889-3) [facility] WITH [id number] 10:48:01 Test Item Value Reference Range Interpretation Comments WBC (test code = See_Comment [Automated 6690-2) message] The sy stem which generated this result transmitted reference range : 4.20 - 10.70 10*3/?L. The reference range was not used to interpret this result as normal/abnormal . RBC (test code = See_Comment L [Automated 789-8) message] The sy stem which generated this result transmitted reference range : 4.26 - 5.52 10*6/?L. The reference range was not used to interpret this result as normal/abnormal . HGB (test code = 10.3 g/dL 12.2-16.4 L 718-7) HCT (test code = 32.4 % 38.4-49.3 L 4544-3) MCV (test code = 80.4 fL 81.7-95.6 L 787-2) MCH (test code = 25.6 pg 26.1-32.7 L 785-6) MCHC (test code = 31.8 g/dL 31.2-35 786-4) RDW-SD (test code = 45.3 fL 38.5-51.6 25610-2) RDW-CV (test code = 15.6 % 12.1-15.4 H 788-0) PLT (test code = See_Comment H [Automated 777-3) message] The sy stem which generated this result transmitted reference range : 150 - 328 10*3/ ?L. The reference r jay was not used to interpret this result as normal/abnormal . MPV (test code = 8.3 fL 9.8-13 L 88595-1) NRBC/100 WBC (test See_Comment [Automat ed code = 5964578443) message] The system which generated this result transmitted reference range : 0.0 - 10.0 /100 WBCs. The refer ence range was not u sed to interpret th is result as normal/abnormal . NRBC x10^3 (test code See_Comment [Auto mated = 8794370145) message] The s ystem which generated this result transmitted reference range : 10*3/?L. The reference range was not used to interpret this result as normal/abnormal . GRAN MAT (NEUT) % 61.6 % (test code = 770-8) IMM GRAN % (test code 0.50 % = 8163800826) LYMPH % (test code = 22.7 % 736-9) MONO % (test code = 8.8 % 5905-5) EOS % (test code = 5.8 % 713-8) BASO % (test code = 0.6 % 706-2) GRAN MAT x10^3(ANC) 6.48 10*3/uL 1.99-6.95 (test code = 6203315495) IMM GRAN x10^3 (test 0.05 10*3/uL 0-0.06 code = 1679011597) LYMPH x10^3 (test code 2.38 10*3/uL 1.09-3.23 = 731-0) MONO x10^3 (test code 0.92 10*3/uL 0.36-1.02 = 742-7) EOS x10^3 (test code = 0.61 10*3/uL 0.06-0.53 H 711-2) BASO x10^3 (test code 0.06 10*3/uL 0.01-0.09 = 704-7) Lab Interpretation Abnormal (test code = 52598-0) [facility] GLUCOSE (AUTOMATED)2021-09-23 01:10:10 Test Item Value Reference Range Interpretation Comments POCT GLU (test code = 8531866016) 249 mg/dL 70-110 H Lab Interpretation (test code = Abnormal 99586-9) [facility] GLUCOSE (AUTOMATED)2021-09-23 01:10:10 Test Item Value Reference Range Interpretation Comments POCT GLU (test code = 9542289963) 249 mg/dL 70-110 H Lab Interpretation (test code = Abnormal 76364-3) [facility] [id number] 00:53:31 Test Item Value Reference Range Interpretation Comments TSH (test code = See_Comment H Biotin has been 8933461748) reported to cau se a negative bias, interpret resul ts relative to pat ient's use of biotin. [Automated mess age] The system [employer] generated this result transmitted ref erence range: 0.45 - 4 .70 mIU/L. The refe rence range was not u sed to interpret this result as normal/abnor mal. Lab Interpretation (test Abnormal code = 70007-9) [facility] [id number] 00:53:31 Test Item Value Reference Range Interpretation Comments TSH (test code = See_Comment H Biotin has been 7557330273) reported to cau se a negative bias, interpret resul ts relative to noreen lea's use of biotin. [Automated mess age] The system [employer] generated this result transmitted ref erence range: 0.45 - 4 .70 mIU/L. The refe rence range was not u sed to interpret this result as normal/abnor mal. Lab Interpretation (test Abnormal code = 58283-7) [facility] METABOLIC PANEL (NA, K, CL, CO2, GLUCOSE, BUN, CREATININE, CA)2021-09-22 23:37:04 Test Item Value Reference Range Interpretation Comments NA (test code = 134 mmol/L 135-145 L 0380973570) K (test code = 3.7 mmol/L 3.5-5 9242667788) CL (test code = 106 mmol/L 98-108 6331189068) CO2 TOTAL (test code = 22 mmol/L 23-31 L 3088509627) AGAP (test code = 2-16 5095554926) BUN (test code = 21 mg/dL 7-23 1222365468) GLUCOSE (test code = 154 mg/dL 70-110 H 2951073790) CREATININE (test code = 1.07 mg/dL 0.6-1.25 6251163424) CALCIUM (test code = 8.1 mg/dL 8.6-10.6 L 7094739976) eGFR (test code = mL/min/1.73m2 7196457344) ONEYDA (test code = ONEYDA) Association of Glomerular Filtration Rate (GFR) and Staging of Kidney Disease* + --+ --+ ------+| GFR (mL/min/1.73 m2) ?| With Kidney Damage ?| ?Without Kidney Damage+ --------+ --------+ +| ?>90 ?| ?Stage one ?| ? Normal ?+ ---+ ---+ -------+| ?60-89 ?| ?Stage two ?| ? Decreased GFR ? + --+ --+ ------+| ?30-59 ?| ?Stage three ?| ? Stage three ? + --+ --+ ------+| ?15-29 ?| ?Stage four ? | ? Stage four ?+ ---+ ---+ -------+| ?<15 (or dialysis) ? ?| ?Stage five ? | ? Stage five ?+ ---+ ---+ -------+ *Each stage assumes the associated GFR level has been in effect for at least three months. ?Stages 1 to 5, with or without kidney disease, indicate chronic kidney disease. Notes: Determination of stages one and two (with eGFR >59mL/min/1.73 m2) requires estimation of kidney damage for at least three months as defined by structural or functional abnormalities of the kidney, manifested by either:Pathological abnormalities or Markers of kidney damage (including abnormalities in the composition of the blood or urine or abnormalities in imaging tests). Lab Interpretation Abnormal (test code = 22030-4) [facility] METABOLIC PANEL (NA, K, CL, CO2, GLUCOSE, BUN, CREATININE, CA)2021-09-22 23:37:04 Test Item Value Reference Range Interpretation Comments NA (test code = 134 mmol/L 135-145 L 6042881043) K (test code = 3.7 mmol/L 3.5-5 8398505472) CL (test code = 106 mmol/L 98-108 5999912319) CO2 TOTAL (test code = 22 mmol/L 23-31 L 7250407319) AGAP (test code = 2-16 1909027025) BUN (test code = 21 mg/dL 7-23 7007909356) GLUCOSE (test code = 154 mg/dL 70-110 H 9507142906) CREATININE (test code = 1.07 mg/dL 0.6-1.25 5918776995) CALCIUM (test code = 8.1 mg/dL 8.6-10.6 L 7236621952) eGFR (test code = mL/min/1.73m2 0906636161) ONEYDA (test code = ONEYDA) Association of Glomerular Filtration Rate (GFR) and Staging of Kidney Disease* + --+ --+ ------+| GFR (mL/min/1.73 m2) ?| With Kidney Damage ?| ?Without Kidney Damage+ --------+ --------+ +| ?>90 ?| ?Stage one ?| ? Normal ?+ ---+ ---+ -------+| ?60-89 ?| ?Stage two ?| ? Decreased GFR ? + --+ --+ ------+| ?30-59 ?| ?Stage three ?| ? Stage three ? + --+ --+ ------+| ?15-29 ?| ?Stage four ? | ? Stage four ?+ ---+ ---+ -------+| ?<15 (or dialysis) ? ?| ?Stage five ? | ? Stage five ?+ ---+ ---+ -------+ *Each stage assumes the associated GFR level has been in effect for at least three months. ?Stages 1 to 5, with or without kidney disease, indicate chronic kidney disease. Notes: Determination of stages one and two (with eGFR >59mL/min/1.73 m2) requires estimation of kidney damage for at least three months as defined by structural or functional abnormalities of the kidney, manifested by either:Pathological abnormalities or Markers of kidney damage (including abnormalities in the composition of the blood or urine or abnormalities in imaging tests). Lab Interpretation Abnormal (test code = 51347-2) [facility] 22:35:51 Test Item Value Reference Range Interpretation Comments Height (test code = in 9616188917) Weight (test code = lbs 8783763235) Systolic BP (test code = mmHg 6582940413) Diastolic BP (test code mmHg = 8654988472) Heart Rate (test code = bpm 7113780026) GLS (test code = -19 % 7268326488) Long Strain(AP2)(aCMQ) -19.30 % (test code = 8505555547) Long Strain(AP3)(aCMQ) -20.70 % (test code = 8733113329) Long Strain(AP4)(aCMQ) -17.10 % (test code = 7412925329) BSA (test code = 1.91 m2 3439430941) LVIDD (test code = 5.00 cm 4829941647) IVS (test code = 0.90 cm 8247601978) Interventricular Septum 0.90 cm Diastolic Thickness by 2D (test code = 4373224) LVPWD (test code = 0.89 cm 0564813872) PW (test code = 0.89 cm 0.6-1.5 1288715114) EF(Teich) (test code = 66.60 % 9863294423) LVIDS (test code = 3.20 cm 8918808681) FS (test code = 37 % 3085932546) EF - 2D (test code = 66.60 % 70515413) Ao root annulus (test 3.7 cm code = 1656969710) Ao root diam (test code 3.70 cm = 8316993899) Aortic root (test code = 3.7 cm 8398187531) LA size (test code = 4.5 cm 5991428760) ACS (test code = 2.32 cm 2278795602) LVOT diameter (test code 2.37 cm = 1770723462) MV Peak E Frank (test code 96.3 cm/s = 7466994565) MV Peak A Frank (test code 115.4 cm/s = 5834932069) E/A ratio (test code = ratio 6382585497) E wave decelartion time 0.32 s (test code = 8912867899) MV Prop V (test code = 50.40 cm/s 0481036481) MV E/e' septal (test 5.8 cm/s code = 5249710147) LVOT stroke volume (test 106.80 cm3 code = 1967774103) LVOT peak frank (test code 115.4 cm/s = 7224536939) LVOT mn grad (test code mmHg = 6493700877) AV LVOT peak gradient mmHg (test code = 7279069924) LVOT peak VTI (test code 24.2 cm = 1034716967) LV V1 mean (test code = 78.20 cm/s 7059400361) Left Ventricular Cardiac 7.5 L/min Output (test code = 6040711) Aortic HR (test code = BPM 5679898677) Aortic valve mean 90.5 cm/s velocity (test code = 8138572468) Ao peak frank (test code = 129.0 cm/s 2055704237) Ao VTI (test code = 28.7 cm 2206193101) AV area by cont VTI 3.7 cm2 (test code = 8305284027) AV area peak frank (test 4.0 cm2 code = 0128445749) Ao max PG (test code = 6.70 mm[Hg] 9053067804) AV peak gradient (test mmHg code = 9124613595) AV valve area (test code 3.70 cm2 = 2453144538) AV mean gradient (test mmHg code = 8247803215) Tapse (test code = 1.91 cm 1556597326) LAV(MOD-sp4) (test code 64.70 mL = 3796029862) LA Volume Index (BP) 45.4 mL/m2 (test code = 7241162266) LA volume (BP) (test 86.6 mL code = 3016775087) LAV(MOD-sp2) (test code 97.20 mL = 7358966752) Radiology Study observation (narrative) (test code = 71851-3) ONEYDA (test code = ONEYDA) Formatting of this result is different from the original. ?Left?Ventricle: Left ventricle size is normal. Normal wall thickness. Normal wall motion. Normal systolic function with a visually estimated EF of 60 - 65%. Global longitudinal strain is -19%. Indeterminate diastolic function. ?Right?Ventricle: Normal systolic function. ?Tricuspid?Valve: Trace transvalvular regurgitation. Insufficient regurgant jet to estimate RVSP. ?Aortic?Valve: No evidence of aortic stenosis. ?Pericardium: No pericardial effusion. Masha Brooks MD Left VentricleLeft ventricle size is normal. Normal wall thickness. Normal wall motion. Normal systolic function with a visually estimated EF of 60 - 65%. Global longitudinal strain is -19%. Indeterminate diastolic function.Right VentricleRight ventricle size is normal. Normal systolic function.Left AtriumLeft atrium is mildly dilated.Right AtriumRight atrium size is normal.IVC/SVCIVC was not well visualized. IVC diameter is less than or equal to 21 mm and decreases greater than 50% during inspiration; therefore the estimated right atrial pressure is normal (~0-5 mmHg).Mitral ValveMitral valve structure is normal. Mild posterior mitral annular calcification. Trace transvalvular regurgitation.Tricusp id ValveTricuspid valve structure is normal. Trace transvalvular regurgitation. Insufficient regurgant jet to estimate RVSP. No stenosis.Aortic ValveAortic valve structure is normal. No transvalvular regurgitation. No evidence of aortic stenosis.Pulmonic ValveNot well visualized.Ascending AortaAnnulus and sinus of Valsalva is normal in size.PericardiumThe pericardium is normal. No pericardial effusion.Study DetailsStudy quality was adequate. A complete echocardiogram was performed using 2D, color flow Doppler, spectral Doppler and strain. Patient exhibited sinus rhythm. [facility] 22:35:51 Test Item Value Reference Range Interpretation Comments Height (test code = in 5591716742) Weight (test code = lbs 1930546633) Systolic BP (test code = mmHg 4047229235) Diastolic BP (test code mmHg = 0276962944) Heart Rate (test code = bpm 9070251260) GLS (test code = -19 % 7802205874) Long Strain(AP2)(aCMQ) -19.30 % (test code = 7062800292) Long Strain(AP3)(aCMQ) -20.70 % (test code = 4875044017) Long Strain(AP4)(aCMQ) -17.10 % (test code = 7748030454) BSA (test code = 1.91 m2 3385606145) LVIDD (test code = 5.00 cm 7624144888) IVS (test code = 0.90 cm 8610540648) Interventricular Septum 0.90 cm Diastolic Thickness by 2D (test code = 7677385) LVPWD (test code = 0.89 cm 2582349147) PW (test code = 0.89 cm 0.6-1.3 1775137191) EF(Teich) (test code = 66.60 % 0276413751) LVIDS (test code = 3.20 cm 4367773583) FS (test code = 37 % 4819441682) EF - 2D (test code = 66.60 % 46020894) Ao root annulus (test 3.7 cm code = 1887709893) Ao root diam (test code 3.70 cm = 9598494347) Aortic root (test code = 3.7 cm 2576350484) LA size (test code = 4.5 cm 6291751975) ACS (test code = 2.32 cm 5325426011) LVOT diameter (test code 2.37 cm = 3527745897) MV Peak E Frank (test code 96.3 cm/s = 8303603913) MV Peak A Frank (test code 115.4 cm/s = 5422436145) E/A ratio (test code = ratio 2220506431) E wave decelartion time 0.32 s (test code = 4956065034) MV Prop V (test code = 50.40 cm/s 9536145347) MV E/e' septal (test 5.8 cm/s code = 7909671777) LVOT stroke volume (test 106.80 cm3 code = 4414052060) LVOT peak frank (test code 115.4 cm/s = 7074224953) LVOT mn grad (test code mmHg = 2438995404) AV LVOT peak gradient mmHg (test code = 8784416296) LVOT peak VTI (test code 24.2 cm = 7706097535) LV V1 mean (test code = 78.20 cm/s 3057652208) Left Ventricular Cardiac 7.5 L/min Output (test code = 7905119) Aortic HR (test code = BPM 1937659218) Aortic valve mean 90.5 cm/s velocity (test code = 5448120194) Ao peak frank (test code = 129.0 cm/s 9721233106) Ao VTI (test code = 28.7 cm 6999282229) AV area by cont VTI 3.7 cm2 (test code = 7264984140) AV area peak frank (test 4.0 cm2 code = 7579241660) Ao max PG (test code = 6.70 mm[Hg] 3636658560) AV peak gradient (test mmHg code = 4157532777) AV valve area (test code 3.70 cm2 = 0953073632) AV mean gradient (test mmHg code = 1879351132) Tapse (test code = 1.91 cm 5660833445) LAV(MOD-sp4) (test code 64.70 mL = 3716542220) LA Volume Index (BP) 45.4 mL/m2 (test code = 5276254100) LA volume (BP) (test 86.6 mL code = 7691100108) LAV(MOD-sp2) (test code 97.20 mL = 5338122646) Radiology Study observation (narrative) (test code = 66081-4) ONEYDA (test code = ONEYDA) Formatting of this result is different from the original. ?Left?Ventricle: Left ventricle size is normal. Normal wall thickness. Normal wall motion. Normal systolic function with a visually estimated EF of 60 - 65%. Global longitudinal strain is -19%. Indeterminate diastolic function. ?Right?Ventricle: Normal systolic function. ?Tricuspid?Valve: Trace transvalvular regurgitation. Insufficient regurgant jet to estimate RVSP. ?Aortic?Valve: No evidence of aortic stenosis. ?Pericardium: No pericardial effusion. Masha Brooks MD Left VentricleLeft ventricle size is normal. Normal wall thickness. Normal wall motion. Normal systolic function with a visually estimated EF of 60 - 65%. Global longitudinal strain is -19%. Indeterminate diastolic function.Right VentricleRight ventricle size is normal. Normal systolic function.Left AtriumLeft atrium is mildly dilated.Right AtriumRight atrium size is normal.IVC/SVCIVC was not well visualized. IVC diameter is less than or equal to 21 mm and decreases greater than 50% during inspiration; therefore the estimated right atrial pressure is normal (~0-5 mmHg).Mitral ValveMitral valve structure is normal. Mild posterior mitral annular calcification. Trace transvalvular regurgitation.Tricusp id ValveTricuspid valve structure is normal. Trace transvalvular regurgitation. Insufficient regurgant jet to estimate RVSP. No stenosis.Aortic ValveAortic valve structure is normal. No transvalvular regurgitation. No evidence of aortic stenosis.Pulmonic ValveNot well visualized.Ascending AortaAnnulus and sinus of Valsalva is normal in size.PericardiumThe pericardium is normal. No pericardial effusion.Study DetailsStudy quality was adequate. A complete echocardiogram was performed using 2D, color flow Doppler, spectral Doppler and strain. Patient exhibited sinus rhythm. [facility] GLUCOSE (AUTOMATED)2021-09-22 21:15:04 Test Item Value Reference Range Interpretation Comments POCT GLU (test code = 1358508974) 145 mg/dL 70-110 H Lab Interpretation (test code = Abnormal 96279-9) [facility] GLUCOSE (AUTOMATED)2021-09-22 21:15:04 Test Item Value Reference Range Interpretation Comments POCT GLU (test code = 9774018553) 145 mg/dL 70-110 H Lab Interpretation (test code = Abnormal 23687-5) [facility] GLUCOSE (AUTOMATED)2021-09-22 19:16:13 Test Item Value Reference Range Interpretation Comments POCT GLU (test code = 6574014474) 149 mg/dL 70-110 H Lab Interpretation (test code = Abnormal 55482-4) [facility] 19:16:13 Test Item Value Reference Range Interpretation Comments POCT GLU (test code = 7078765756) 149 mg/dL 70-110 H Lab Interpretation (test code = Abnormal 75917-3) [facility] Test Item Value Reference Range Interpretation Comments APTT Patient (test code See_Comment H [Au tomated message] = 3173-2) The system [employer] generated this result transmitted ref erence range: 26 - 36 Seconds. The reference range was not used to int erpret this result as normal/abnormal . Lab Interpretation (test Abnormal code = 18292-8) [place] [id number] 16:03:03 Test Item Value Reference Range Interpretation Comments APTT Patient (test code See_Comment H [Au tomated message] = 3173-2) The system [employer] generated this result transmitted ref erence range: 26 - 36 Seconds. The reference range was not used to int erpret this result as normal/abnormal . Lab Interpretation (test Abnormal code = 22502-4) [facility] / [id number] 16:02:43 Test Item Value Reference Range Interpretation Comments PROTIME PATIENT (test See_Comment [Auto mated message] code = 5964-2) The system [employer] generated this result transmitted ref erence range: 10.1 - 1 2.6 Seconds. The re ference range was not u sed to interpret this result as normal/abnor mal. INR (test code = 6301-6) Nor mal INR <1.1; Warfarin Therap eutic range 2.0 to 3. 0 or 2.5 to 3.5, dep ending upon the indica tions. Lab Interpretation (test Normal code = 17079-2) [facility] [id number] 16:02:43 Test Item Value Reference Range Interpretation Comments PROTIME PATIENT (test See_Comment [Auto mated message] code = 5964-2) The system [employer] generated this result transmitted ref erence range: 10.1 - 1 2.6 Seconds. The re ference range was not u sed to interpret this result as normal/abnor mal. INR (test code = 6301-6) Nor mal INR <1.1; Warfarin Therap eutic range 2.0 to 3. 0 or 2.5 to 3.5, dep ending upon the indica tions. Lab Interpretation (test Normal code = 87079-4) [facility] [id number] 11:14:52 Test Item Value Reference Interpretation Comments Range TROPONIN I (test 0.010 ng/mL See_Comment [Automated code = 5281098235) message] The system which generated this result transmitted reference range : <=0.034. The reference range was not used to interpret this result as normal/abnormal . ONEYDA (test code = Reference (Normal) ONEYDA) Range (defined by the 99th percentile reference limit): <= 0.034 ng/mL Note: Cardiac troponin begins to rise 3-4 hours after the onset of ischemia. Repeat in 4-6 hours if the sample was drawn within 3-4 hours of the onset of the symptom and found normal. Diagnosis of myocardial injury is made with acute changes in cTn concentrations with at least one serial sample above the 99th percentile upper reference limit (URL), taken together with the patient's clinical presentation. Biotin has been reported to cause a negative bias, interpret results relative to patient's use of biotin. Lab Interpretation Normal (test code = 37917-3) [facility] [id number] 11:14:52 Test Item Value Reference Interpretation Comments Range TROPONIN I (test 0.010 ng/mL See_Comment [Automated code = 0679954935) message] The system which generated this result transmitted reference range : <=0.034. The reference range was not used to interpret this result as normal/abnormal . ONEYDA (test code = Reference (Normal) ONEYDA) Range (defined by the 99th percentile reference limit): <= 0.034 ng/mL Note: Cardiac troponin begins to rise 3-4 hours after the onset of ischemia. Repeat in 4-6 hours if the sample was drawn within 3-4 hours of the onset of the symptom and found normal. Diagnosis of myocardial injury is made with acute changes in cTn concentrations with at least one serial sample above the 99th percentile upper reference limit (URL), taken together with the patient's clinical presentation. Biotin has been reported to cause a negative bias, interpret results relative to patient's use of biotin. Lab Interpretation Normal (test code = 93566-0) [facility] [id number] 10:44:11 Test Item Value Reference Range Interpretation Comments CK (test code = 9564267843) 156 U/L 33-194 Lab Interpretation (test code = Normal 24049-7) [facility] [id number] 10:44:11 Test Item Value Reference Range Interpretation Comments CK (test code = 1055435252) 156 U/L 33-194 Lab Interpretation (test code = Normal 08911-3) [facility]. METABOLIC PANEL (31799)2021-09-22 10:11:05 Test Item Value Reference Range Interpretation Comments NA (test code = 134 mmol/L 135-145 L 7033248622) K (test code = 5.1 mmol/L 3.5-5 H 4369269703) CL (test code = 103 mmol/L 98-108 1415176436) CO2 TOTAL (test code = 18 mmol/L 23-31 L 4710557336) AGAP (test code = 2-16 4274878951) BUN (test code = 31 mg/dL 7-23 H 6012500565) GLUCOSE (test code = 148 mg/dL 70-110 H 8056288799) CREATININE (test code = 1.41 mg/dL 0.6-1.25 H 4858103189) TOTAL BILI (test code = 0.7 mg/dL 0.1-1.7 9796729171) CALCIUM (test code = 9.0 mg/dL 8.6-10.6 4389310778) T PROTEIN (test code = 7.6 g/dL 6.3-8.2 5347525441) ALBUMIN (test code = 4.4 g/dL 3.5-5 3713135953) ALK PHOS (test code = 99 U/L 34-122 0001752102) ALTv (test code = 13 U/L 5-50 1742-6) AST(SGOT) (test code = 25 U/L 13-40 3260681613) eGFR (test code = mL/min/1.73m2 1559232023) ONEYDA (test code = ONEYDA) Association of Glomerular Filtration Rate (GFR) and Staging of Kidney Disease* + --+ --+ ------+| GFR (mL/min/1.73 m2) ?| With Kidney Damage ?| ?Without Kidney Damage+ --------+ --------+ +| ?>90 ?| ?Stage one ?| ? Normal ?+ ---+ ---+ -------+| ?60-89 ?| ?Stage two ?| ? Decreased GFR ? + --+ --+ ------+| ?30-59 ?| ?Stage three ?| ? Stage three ? + --+ --+ ------+| ?15-29 ?| ?Stage four ? | ? Stage four ?+ ---+ ---+ -------+| ?<15 (or dialysis) ? ?| ?Stage five ? | ? Stage five ?+ ---+ ---+ -------+ *Each stage assumes the associated GFR level has been in effect for at least three months. ?Stages 1 to 5, with or without kidney disease, indicate chronic kidney disease. Notes: Determination of stages one and two (with eGFR >59mL/min/1.73 m2) requires estimation of kidney damage for at least three months as defined by structural or functional abnormalities of the kidney, manifested by either:Pathological abnormalities or Markers of kidney damage (including abnormalities in the composition of the blood or urine or abnormalities in imaging tests). Lab Interpretation Abnormal (test code = 11319-6) [facility]. METABOLIC PANEL (24023)2021-09-22 10:11:05 Test Item Value Reference Range Interpretation Comments NA (test code = 134 mmol/L 135-145 L 5380327190) K (test code = 5.1 mmol/L 3.5-5 H 4632164295) CL (test code = 103 mmol/L 98-108 7600655886) CO2 TOTAL (test code = 18 mmol/L 23-31 L 3829304997) AGAP (test code = 2-16 5798670506) BUN (test code = 31 mg/dL 7-23 H 5844671087) GLUCOSE (test code = 148 mg/dL 70-110 H 6933277058) CREATININE (test code = 1.41 mg/dL 0.6-1.25 H 0228107816) TOTAL BILI (test code = 0.7 mg/dL 0.1-1.4 0425649564) CALCIUM (test code = 9.0 mg/dL 8.6-10.6 8005986458) T PROTEIN (test code = 7.6 g/dL 6.3-8.2 3564552029) ALBUMIN (test code = 4.4 g/dL 3.5-5 1034063404) ALK PHOS (test code = 99 U/L 34-122 0120660764) ALTv (test code = 13 U/L 5-50 1742-6) AST(SGOT) (test code = 25 U/L 13-40 7931673614) eGFR (test code = mL/min/1.73m2 6442500974) ONEYDA (test code = ONEYDA) Association of Glomerular Filtration Rate (GFR) and Staging of Kidney Disease* + --+ --+ ------+| GFR (mL/min/1.73 m2) ?| With Kidney Damage ?| ?Without Kidney Damage+ --------+ --------+ +| ?>90 ?| ?Stage one ?| ? Normal ?+ ---+ ---+ -------+| ?60-89 ?| ?Stage two ?| ? Decreased GFR ? + --+ --+ ------+| ?30-59 ?| ?Stage three ?| ? Stage three ? + --+ --+ ------+| ?15-29 ?| ?Stage four ? | ? Stage four ?+ ---+ ---+ -------+| ?<15 (or dialysis) ? ?| ?Stage five ? | ? Stage five ?+ ---+ ---+ -------+ *Each stage assumes the associated GFR level has been in effect for at least three months. ?Stages 1 to 5, with or without kidney disease, indicate chronic kidney disease. Notes: Determination of stages one and two (with eGFR >59mL/min/1.73 m2) requires estimation of kidney damage for at least three months as defined by structural or functional abnormalities of the kidney, manifested by either:Pathological abnormalities or Markers of kidney damage (including abnormalities in the composition of the blood or urine or abnormalities in imaging tests). Lab Interpretation Abnormal (test code = 91091-6) [facility] WITH [id number] 09:44:26 Test Item Value Reference Range Interpretation Comments WBC (test code = See_Comment H [Automated 6690-2) message] The system which generated this result transmit gretta reference range : 4.20 - 10.70 10*3/?L. The reference range was not used to interpret this result as normal/abnormal . RBC (test code = See_Comment L [Automated 789-8) message] The system which generated this result transmit gretta reference range : 4.26 - 5.52 10*6/?L. The reference range was not used to interpret this result as normal/abnormal . HGB (test code = 10.6 g/dL 12.2-16.4 L 718-7) HCT (test code = 33.9 % 38.4-49.3 L 4544-3) MCV (test code = 81.3 fL 81.7-95.6 L 787-2) MCH (test code = 25.4 pg 26.1-32.7 L 785-6) MCHC (test code = 31.3 g/dL 31.2-35 786-4) RDW-SD (test code = 45.5 fL 38.5-51.6 33313-7) RDW-CV (test code = 15.4 % 12.1-15.4 788-0) PLT (test code = See_Comment H [Automated 777-3) message] The system which generated this result transmit gretta reference range : 150 - 328 10*3/ ?L. The reference range was not u sed to interpret th is result as normal/abnormal . MPV (test code = 8.6 fL 9.8-13 L 51675-7) NRBC/100 WBC (test See_Comment [Automat ed code = 1502232757) message] The system which generated this result transmit gretta reference range : 0.0 - 10.0 /100 WBCs. The reference range was not used to interpret this result as normal/abnormal . NRBC x10^3 (test code See_Comment [Auto mated = 5028066029) message] The system which generated this result transmit gretta reference range : 10*3/?L. The reference range was not used to interpret this result as normal/abnormal . GRAN MAT (NEUT) % 71.1 % (test code = 770-8) IMM GRAN % (test code 0.80 % = 2970358894) LYMPH % (test code = 18.9 % 736-9) MONO % (test code = 5.9 % 5905-5) EOS % (test code = 2.8 % 713-8) BASO % (test code = 0.5 % 706-2) GRAN MAT x10^3(ANC) 11.00 10*3/uL 1.99-6.95 H (test code = 7314520642) IMM GRAN x10^3 (test 0.13 10*3/uL 0-0.06 H code = 2148461250) LYMPH x10^3 (test code 2.92 10*3/uL 1.09-3.23 = 731-0) MONO x10^3 (test code 0.92 10*3/uL 0.36-1.02 = 742-7) EOS x10^3 (test code = 0.43 10*3/uL 0.06-0.53 711-2) BASO x10^3 (test code 0.07 10*3/uL 0.01-0.09 = 704-7) Lab Interpretation Abnormal (test code = 37156-3) [facility] WITH [id number] 09:44:26 Test Item Value Reference Range Interpretation Comments WBC (test code = See_Comment H [Automated 6690-2) message] The system which generated this result transmit gretta reference range : 4.20 - 10.70 10*3/?L. The reference range was not used to interpret this result as normal/abnormal . RBC (test code = See_Comment L [Automated 789-8) message] The system which generated this result transmit gretta reference range : 4.26 - 5.52 10*6/?L. The reference range was not used to interpret this result as normal/abnormal . HGB (test code = 10.6 g/dL 12.2-16.4 L 718-7) HCT (test code = 33.9 % 38.4-49.3 L 4544-3) MCV (test code = 81.3 fL 81.7-95.6 L 787-2) MCH (test code = 25.4 pg 26.1-32.7 L 785-6) MCHC (test code = 31.3 g/dL 31.2-35 786-4) RDW-SD (test code = 45.5 fL 38.5-51.6 74445-4) RDW-CV (test code = 15.4 % 12.1-15.4 788-0) PLT (test code = See_Comment H [Automated 777-3) message] The system which generated this result transmit gretta reference range : 150 - 328 10*3/ ?L. The reference range was not u sed to interpret th is result as normal/abnormal . MPV (test code = 8.6 fL 9.8-13 L 83637-7) NRBC/100 WBC (test See_Comment [Automat ed code = 8901134954) message] The system which generated this result transmit gretta reference range : 0.0 - 10.0 /100 WBCs. The reference range was not used to interpret this result as normal/abnormal . NRBC x10^3 (test code See_Comment [Auto mated = 3388387048) message] The system which generated this result transmit gretta reference range : 10*3/?L. The reference range was not used to interpret this result as normal/abnormal . GRAN MAT (NEUT) % 71.1 % (test code = 770-8) IMM GRAN % (test code 0.80 % = 5545970736) LYMPH % (test code = 18.9 % 736-9) MONO % (test code = 5.9 % 5905-5) EOS % (test code = 2.8 % 713-8) BASO % (test code = 0.5 % 706-2) GRAN MAT x10^3(ANC) 11.00 10*3/uL 1.99-6.95 H (test code = 1848128414) IMM GRAN x10^3 (test 0.13 10*3/uL 0-0.06 H code = 3994656485) LYMPH x10^3 (test code 2.92 10*3/uL 1.09-3.23 = 731-0) MONO x10^3 (test code 0.92 10*3/uL 0.36-1.02 = 742-7) EOS x10^3 (test code = 0.43 10*3/uL 0.06-0.53 711-2) BASO x10^3 (test code 0.07 10*3/uL 0.01-0.09 = 704-7) Lab Interpretation Abnormal (test code = 69041-7) [facility] [id number] 14:11:00 Test Item Value Reference Range Interpretation Comments Vitamin B1, whole 149.3 nmol/L 66.5-200 blood (test code = 03379-2) ONEYDA (test code = Test(s) 423470-Uox. B1, ONEYDA) Whole Bloodwas developed and its performance characteristics determinedby [facility]. It has not been cleared or approved by the Foodand Drug Administration.Performed at: [address] [id number] Director: Maria Elena Kilgore MD, Phone: [phone] [facility]-smooth muscle [id number] 21:08:00 Test Item Value Reference Range Interpretation Comments F-actin See_Comment Negative 0 - 1 9 (smooth Weak positive 2 0 - muscle) Ab, 30 Moderate to IgG (test code strong positi ve >30 = 89694-8) Actin Antibodie s are found in 52-85% of patients with autoimmune hepa titis or chronic acti ve hepatitis and i n 22% of patients wit h primary biliary cirrhosis. [Automated mess age] The system [facility] [employer] generated this result transmit gretta reference range : 0 - 19 Units. The reference range was not used to interpret this result as normal/abnormal . ONEYDA (test code Performed at: - = ONEYDA) [address] [id number] Director: Maria Elena Kilgore MD, Phone: [phone] [facility] mitochondria [id number] 21:08:00 Test Item Value Reference Range Interpretation Comments Mitochondrial Ab <20.0 See_Comment Negative 0 .0 - (test code = 20.0 Equivocal 96358-3) 20.1 - 24.9 Positive >24.9Mitochondr ia l (M2) Antibodi es are found in 90-96% ofpatien ts with primary biliary cirrhosis. [Automated message] The system which generated this result transmitted reference range : 0.0 - 20.0 Unit s. The reference range was not used to interpr et this result as normal/abnormal . ONEYDA (test code = Performed at: 01 ONEYDA) - [address] [id number] Director: Maria Elena Kilgore MD, Phone: [phone] [facility] ResourcesHemoglobinopathy fractionation othekwb6999-06-12 20:10:00 Test Item Value Reference Interpretation Comments Range Hemoglobin F (test 0.0 % 0-2 code = 32772-0) Hemoglobin A (test 98.0 % 96.4-98.8 code = 79532-3) Hemoglobin A2 (test 2.0 % 1.8-3.2 code = 4552-6) Hemoglobin S (test 0.0 % See_Comment [Automat ed message] The code = 67397-5) system which generated this result tra nsmitted reference range : 0.0. The reference r jay was not used to int erpret this result as normal/abnormal . Interpretation Comment Normal hemogl obin (test code = present; no hem oglobin 93315-3) variant or beta thalassemiaiden tified.No te: Alpha thala ssemia may not be dete cted by the Hgb FractionationCa scade panel. If alpha thalassemia is suspected, [facility] or offersAlpha-Mynor lassemia DNA Analysis (# [id number]). ONEYDA (test code = Performed at: ONEYDA) [address] [place] [address] [id number] Director: DICK Monreal MD, Phone: [phone] [facility] ResourcesAlpha-1 antitrypsin [id number] 20:11:00 Test Item Value Reference Range Interpretation Comments Alpha-1 antitrypsin 159 mg/dL 101-187 (test code = 1825-9) ONEYDA (test code = ONEYDA) Performed at: [address] [place] [address] [id number] Director: DICK Monreal MD, Phone: [phone] [facility]2022-06-17 17:09:00 Test Item Value Reference Range Interpretation Comments ERIK direct (test code Negative Negative = 8061-4) ONEYDA (test code = ONEYDA) Performed at: [address] [place] [address] [id number] Director: Rian Auguste MD, Phone: [phone] [facility], [id number] 17:09:00 Test Item Value Reference Range Interpretation Comments Cortisol, PM (test code = 12.5 ug/dL 2.3-11.9 H 9812-9) ONEYDA (test code = ONEYDA) Performed at: [facility] [id number] Director: Rian Auguste MD, Phone: [phone] Lab Interpretation (test Abnormal code = 17926-9) [facility] [id number] 13:08:00 Test Item Value Reference Range Interpretation Comments Potassium (test code = 5.2 mmol/L 3.5-5.2 2823-3) ONEYDA (test code = ONEYDA) Performed at: [facility]Co[address] [id number] Director: Rian Auguste MD, Phone: [phone] [facility] with platelet and kugaysxtejtr9355-27-22 13:08:00 Test Item Value Reference Range Interpretation Comments WBC (test code = See_Comment [Automated 6690-2) message] The system which generated this result transmitted reference range : 3.4 - 10.8 x10E3/uL. The reference range was not used to interpret this result as normal/abnormal . RBC (test code = See_Comment L [Automated 789-8) message] The system which generated this result transmitted reference range : 4.14 - 5.80 x10E6/uL. The reference range was not used to interpret this result as normal/abnormal . HGB (test code = 9.4 g/dL 13-17.7 L 718-7) HCT (test code = 30.7 % 37.5-51 L 4544-3) MCV (test code = 84 fL 79-97 787-2) MCH (test code = 25.8 pg 26.6-33 L 785-6) MCHC (test code = 30.6 g/dL 31.5-35.7 L 786-4) RDW (test code = 13.0 % 11.6-15.4 788-0) Platelet count (test See_Comment [Autom ated code = 777-3) message] The system which generated this result transmitted reference range : 150 - 450 x10E3/uL. The reference range was not used to interpret this result as normal/abnormal . Neutrophils (test 54 % Not Estab. code = 770-8) Lymphocytes (test 32 % Not Estab. code = 736-9) Monocytes (test code 7 % Not Estab. = 5905-5) Eosinophils (test 5 % Not Estab. code = 713-8) Basophils (test code 1 % Not Estab. = 706-2) Neutrophils, absolute See_Comment [Auto mated (test code = 751-8) message] The system which generated this result transmitted reference range : 1.4 - 7.0 x10E3/uL. The reference range was not used to interpret this result as normal/abnormal . Lymphocytes, absolute See_Comment [Auto mated (test code = 731-0) message] The system which generated this result transmitted reference range : 0.7 - 3.1 x10E3/uL. The reference range was not used to interpret this result as normal/abnormal . Monocytes, absolute See_Comment [Automa gretta (test code = 742-7) message] The system which generated this result transmitted reference range : 0.1 - 0.9 x10E3/uL. The reference range was not used to interpret this result as normal/abnormal . Eosinophils, absolute See_Comment H [Auto mated (test code = 711-2) message] The system which generated this result transmitted reference range : 0.0 - 0.4 x10E3/uL. The reference range was not used to interpret this result as normal/abnormal . Basophils, absolute See_Comment [Automa gretta (test code = 704-7) message] The system which generated this result transmitted reference range : 0.0 - 0.2 x10E3/uL. The reference range was not used to interpret this result as normal/abnormal . Immature granulocytes 1 % Not Estab. (test code = 64638-2) Immature See_Comment [Automated granulocytes, message] The absolute (test code = system which 26670-5) generated this result transmitted reference range : 0.0 - 0.1 x10E3/uL. The reference range was not used to interpret this result as normal/abnormal . ONEYDA (test code = ONEYDA) Performed at: 01 - [address] [id number] Director: Rian Auguste MD, Phone: [phone] Lab Interpretation Abnormal (test code = 73986-5) [facility] B surface [id number] 13:08:00 Test Item Value Reference Range Interpretation Comments Hepatitis B surface Ag Negative Negative (test code = 5196-1) ONEYDA (test code = ONEYDA) Performed at: [address] [place] [address] [id number] Director: Rian Auguste MD, Phone: [phone] [facility] B surface ubejprwm2198-28-15 13:08:00 Test Item Value Reference Range Interpretation Comments Hepatitis B Non Reactive Non Reactive: surface Ab (test Inconsisten t with code = 75261-9) immunity, l ess than 10 mIU/mL Reactive: Consistent with immunity, great er than 9.9 mIU/mL ONEYDA (test code = Performed at: ONEYDA) [address] [id number] Director: Rian Auguste MD, Phone: [phone] [facility] A antibody rfgwc5934-79-51 13:08:00 Test Item Value Reference Range Interpretation Comments Hepatitis A total Ab Positive Negative A (test code = 38333-5) ONEYDA (test code = ONEYDA) Performed at: [address] [place] [address] [id number] Director: Rian Auguste MD, Phone: [phone] Lab Interpretation (test Abnormal code = 75918-0) [facility] ResourcesReticulocyte count, [id number] 13:08:00 Test Item Value Reference Range Interpretation Comments Retic count, manual 1.5 % 0.6-2.6 (test code = 86253-4) ONEYDA (test code = ONEYDA) Performed at: [address] [place] [address] [id number] Director: Rian Auguste MD, Phone: [phone] [facility] ResourcesTotal iron binding bbtkbwws3521-12-69 13:08:00 Test Item Value Reference Range Interpretation Comments Iron binding capacity 295 ug/dL 250-450 (test code = 2500-7) Unsaturated iron binding 253 ug/dL 111-343 capacity (test code = 2501-5) Iron level (test code = 42 ug/dL 38-169 2498-4) Iron saturation (test 14 % 15-55 L code = 2502-3) ONEYDA (test code = ONEYDA) Performed at: [address] [place] [address] [id number] Director: Rian Auguste MD, Phone: [phone] Lab Interpretation (test Abnormal code = 26107-4) [facility] ResourcesHIV 1/2 antigen/antibody, fourth generation w/xbp1681-00-50 13:08:00 Test Item Value Reference Range Interpretation Comments HIV AG/AB 4th Non Reactive Non Reactive HIV gen (test code NegativeHIV-1 /HIV-2 = 76667-4) antibodies and HIV-1 p24 antigen wer e NOT detected.There is no laboratory evid ence of HIV infectio n. ONEYDA (test code Performed at: - = ONEYDA) [address] [id number] Director: Rian Auguste MD, Phone: [phone] [facility] ResourcesVitamin B12 [id number] 13:08:00 Test Item Value Reference Range Interpretation Comments Vitamin B12 (test 315 pg/mL 232-1245 code = 2132-9) ONEYDA (test code = ONEYDA) Performed at: [address] [place] [address] [id number] Director: Rian Auguste MD, Phone: [phone] [facility] ResourcesFerritin amaeg8218-00-87 13:08:00 Test Item Value Reference Range Interpretation Comments Ferritin level (test 86 ng/mL 30-400 code = 2276-4) ONEYDA (test code = ONEYDA) Performed at: [address] [place] [address] [id number] Director: Rian Auguste MD, Phone: [phone] [facility] ResourcesFolate [id number] 13:08:00 Test Item Value Reference Range Interpretation Comments Folate (test 12.2 ng/mL See_Comment A serum folate code = 2284-8) concentration of less than 3.1 ng/mL isconsidered to represent clini doyle deficiency. [Automated mess age] The system [employer] generated this result transmitted ref erence range: >=3.0. T he reference range was not used to int erpret this result as normal/abnormal . ONEYDA (test code Performed at: - = ONEYDA) [facility] [id number] Director: Rian Auguste MD, Phone: [phone] [facility] ResourcesSegowcesJRI2582-22-04 13:08:00 Test Item Value Reference Range Interpretation Comments GGT (test code See_Comment [Automated m essage] = 2324-2) The system [employer] generated this result transmit gretta reference range : 0 - 65 IU/L. The reference range was not used to interpret this result as normal/abnormal . ONEYDA (test code Performed at: - = ONEYDA) [facility] [id number] Director: Rian Auguste MD, Phone: [phone] [facility] ResourcesHemoglobin [id number] 15:35:00 Test Item Value Reference Range Interpretation Comments Hemoglobin A1C (test 8.6 % 4.8-5.6 H Predia betes: code = 4548-4) 5.7 - 6.4 Diabetes: >6.4 Glycemic control for adults with diabetes: <7.0 ONEYDA (test code = ONEYDA) Performed at: [address] [id number] Director: Rian Auguste MD, Phone: [phone] Lab Interpretation Abnormal (test code = 46544-2) [facility] ResourcesVitamin D 25 hydroxy [id number] 15:35:00 Test Item Value Reference Range Interpretation Comments Vitamin D, 23.2 ng/mL 30-100 L Vitamin D 25-hydroxy (test deficiency has been code = 58027-2) defined by t [place] [employer] and an Endocrine Socie ty practice guidel ine as alevel of se rum 25-OH vitamin D less than 20 ng /mL (1,2).The Endoc rine Society went on to further define vitamin Dinsufficiency as a level between 2 1 and 29 ng/mL (2 ).1. IOM ([place] [employer]). 2010 . Dietary referen ce intakes for doyle cium and DColt [place]: [employer] .2. Mendez MF, Meliza BANDA, Urbano yan LI, et al. Evaluation, treatment, and prevention of vitamin D deficiency: an Endocrine Socie ty clinical practi ce guideline. JCEM . 2010; 96(7):1911-30. ONEYDA (test code = Performed at: 01 ONEYDA) - [address] [id number] Director: Rian Auguste MD, Phone: [phone] Lab Interpretation Abnormal (test code = 06633-2) [facility] ResourcesMicroalbumin / creatinine urine [id number] 15:35:00 Test Item Value Reference Range Interpretation Comments Creatinine, urine 37.1 mg/dL Not Estab. (mg/dL) (test code = 2161-8) Albumin, urine (test 154.0 ug/mL Not Estab. code = 98000-1) Microalbumin/creatini See_Comment H Minda l: 0 - 29 ne ratio (test code = Modera tely 9318-7) increased: 30 - 300 Severely increased: >300 [Automated message] The system which generated this result transmitted reference range : 0 - 29 mg/g creat. The reference range was not used to interpret this result as normal/abnormal . ONEYDA (test code = ONEYDA) Performed at: - [address] [id number] Director: Rian Auguste MD, Phone: [phone] Lab Interpretation Abnormal (test code = 72463-6) [facility] reflex to [id number] 15:35:00 Test Item Value Reference Range Interpretation Comments TSH (test code = See_Comment H Results con firmed 68254-7) ondilution. [Automated message] The system which generated this result transmitted reference range : 0.450 - 4.500 uIU/mL. The reference range was not used to interpret this result as normal/abnormal . ONEYDA (test code = ONEYDA) Performed at: [address] [place] [address] [id number] Director: Rian Auguste MD, Phone: [phone] Lab Interpretation Abnormal (test code = 11831-5) [place] [address] FREE (EVERT HIST)2021-07-05 15:35:00 Test Item Value Reference Range Interpretation Comments T4, free, direct dialysis 0.27 ng/dL 0.82-1.77 L (test code = 3024-7) ONEYDA (test code = ONEYDA) Performed at: [facility] [id number] Director: Rian Auguste MD, Phone: [phone] Lab Interpretation (test Abnormal code = 22673-4) [facility] metabolic [id number] 15:35:00 Test Item Value Reference Range Interpretation Comments Glucose (test code = 153 mg/dL 65-99 H 2345-7) BUN (test code = 29 mg/dL 8-27 H 3094-0) Creatinine (test code 1.45 mg/dL 0.76-1.27 H = 2160-0) eGFR (test code = 52 mL/min/1.73 See_Comment L [Automa gretta 8257) message] The system which generated this result transmitted reference range : >=59. The reference range was not used to interpret this result as normal/abnormal . BUN/creatinine ratio 10-24 (test code = 3097-3) Sodium (test code = 130 mmol/L 134-144 L 2951-2) Potassium (test code 6.2 mmol/L 3.5-5.2 H = 2823-3) Chloride (test code = 99 mmol/L 96-106 2075-0) CO2 (test code = 20 mmol/L 20-29 8-9) Calcium (test code = 8.3 mg/dL 8.6-10.2 L 00634-9) Protein (test code = 5.5 g/dL 6-8.5 L 2885-2) Albumin, S (test code 3.4 g/dL 3.7-4.7 L = 1751-7) Globulin, total (test 2.1 g/dL 1.5-4.5 code = 99508-3) Albumin/globulin 1.2-2.2 ratio (test code = 1759-0) Total bilirubin (test 0-1.2 code = 1975-2) Alkaline phosphatase See_Comment [Autom ated (test code = 6768-6) message ] The system which generated this result transmitted reference range : 44 - 121 IU/L. The reference range was not used to interpr et this result as normal/abnormal . AST (test code = See_Comment H [Automated 1919-8) message] The system which generated this result transmitted reference range : 0 - 40 IU/L. Th e reference range was not used to interpret this result as normal/abnormal . ALT (test code = See_Comment [Automated 1741-6) message] The system which generated this result transmitted reference range : 0 - 44 IU/L. Th e reference range was not used to interpret this result as normal/abnormal . ONEYDA (test code = ONEYDA) Performed at: 01 - [facility] [id number] Director: Rian Auguste MD, Phone: [phone] Lab Interpretation Abnormal (test code = 20642-6) [id number] 15:35:00 Test Item Value Reference Range Interpretation Comments Cholesterol (test 132 mg/dL 100-199 code = 2093-3) Triglycerides (test 65 mg/dL 0-149 code = 2571-8) HDL cholesterol 48 mg/dL See_Comment [Automated (test code = 2084-) message ] The system which generated this result transmitted reference range : >=39. The reference range was not used to interpret this result as normal/abnormal . VLDL cholesterol doyle 14 mg/dL 5-40 (test code = 47127-8) LDL Chol Calc ([facility]) 70 mg/dL 0-99 (test code = 88246-2) Non-HDL cholesterol 84 mg/dL 0-129 (test code = 75626-0) ONEYDA (test code = Performed at: ONEYDA) - [facility] [address] [id number] Director: Rian Auguste MD, Phone: [phone] [facility]"
[2021-10-05] MEDS: HYDROCODONE/APAP 10/325 TAB PO PRN (22:02)
[2021-10-05] MEDS: TRAZODONE 50 MG TABLET PO SCH (23:34)
[2021-10-06 00:46] LABS: Specific Gravity 1.015 (1.005-1.030); Urine Bacteria <20 /HPF (<20); Urine Bilirubin NEGATIVE (Negative); Urine Blood Negative (Negative); Urine Clarity Clear (Clear); Urine Color Light-Yellow (Yellow); Urine Glucose NEGATIVE (Negative); Urine Mucus 1+ /HPF (None Seen); Urine Protein NEGATIVE (Negative); Urine RBC <5 /HPF (None Seen); Urine Urobilinogen Normal (Normal); Urine pH 5.5 (5.0-7.0)
[2021-10-06] MEDS: HYDROCODONE/APAP 10/325 TAB PO PRN ×5 (02:58→19:02)
[2021-10-06] MEDS ORDERED: BISACODYL 10 MG RECTAL SUPP PR PRN (03:21)
[2021-10-06] MEDS ORDERED: D50W 25 GM/50 ML SYRINGE IV PRN (03:49)
[2021-10-06] MEDS ORDERED: GLUCAGON 1 MG/VIAL IM PRN (03:49)
[2021-10-06] MEDS ORDERED: D10W 125 ML IV PRN (03:55)
[2021-10-06 04:36] LABS: Absolute Lymphocytes (CBC) 2.9 K/uL (0.7-4.9); Hematocrit 28.7 % (39.6-49.0); Lymphocytes % 27.7 % (15.3-44.8); MCV 79.4 fL (80-100); MPV 6.2 fL (7.6-11.3); RBC Red Blood Cell Count 3.62 M/uL (4.33-5.43)
[2021-10-06 05:11] LABS: Albumin 2.6 g/dL (3.4-5.0); Magnesium 2.1 mg/dL (1.8-2.4); Potassium 5.3 mmol/L (3.5-5.1); Prealbumin 13.5 mg/dL (20-40)
[2021-10-06] MEDS ORDERED: PANTOPRAZOLE 40MG TABLET PO SCH (06:30)
[2021-10-06] MEDS: LEVOTHYROXINE SOD 0.05 MG TABLET PO SCH (06:41)
[2021-10-06] MEDS: carvediloL 25 MG TAB PO SCH ×2 (06:41→16:57)
[2021-10-06] MEDS: INSULIN -REGULAR HUMAN 50 UNIT/0.5 ML ML SQ SCH ×4 (07:30→19:55)
[2021-10-06] MEDS ORDERED: GABAPENTIN 400 MG CAP PO SCH (08:00)
[2021-10-06] MEDS: DULOXETINE 30 MG CAP PO SCH (08:38)
[2021-10-06] MEDS: POLYETHYL GLY 3350 17 GM/DOSE PO SCH ×2 (08:38→19:55)
[2021-10-06] MEDS: FERROUS SULFATE 325 MG TAB PO SCH ×2 (08:39→19:54)
[2021-10-06] MEDS: GLIMEPIRIDE 2 MG TABLET PO SCH (08:39)
[2021-10-06] MEDS: methocarbamoL 750 MG TAB PO SCH ×4 (08:39→21:43)
[2021-10-06] MEDS: TAMSULOSIN 0.4 MG SR CAP PO SCH (08:40)
[2021-10-06] MEDS: DOCUSATE NA 100 MG CAP PO SCH (08:40)
[2021-10-06] MEDS: METFORMIN HCL 500 MG TAB PO SCH ×2 (08:40→16:56)
[2021-10-06] MEDS: AMIODARONE HCL 200 MG TAB PO SCH (08:40)
[2021-10-06] MEDS: SENOSIDES 8.6 MG TAB PO SCH (08:40)
[2021-10-06 09:52] VITALS: BMI 23.4
[2021-10-06] MEDS: RIVASTIGMINE 4.6 MG/24 HR PATCH TD SCH (10:42)
[2021-10-06] MEDS: DRISDOL (VITAMIN D=ERGOCALCIFEROL) 50000 UNIT CAP PO SCH (11:45)
[2021-10-06] MEDS: ALOGLIPTIN BENZOATE 12.5 MG TABLET PO SCH (11:45)
--- NOTE | 2021-10-06 18:09 | R.HP ---
HISTORY AND PHYSICAL FACILITY: [facility] ENCOUNTER DATE AND TIME: 10/06/2021 17:58 (CDT) MR#: [id number] NAME ABHISHEK RODRIGUES ADDRESS: [address] [place] [address] CITY: [place]IP [id number] PHONE: ( DATE OF : 1950 AGE: 71 SSN# [id number] GENDER: Male MARITAL STATUS Unknown PRE-HOSPITAL LIVING SETTING 01 - Home (private home/apt. board/care, assisted living, longterm, transitional living) PRE-HOSPITAL LIVING WITH Alone ENCOUNTER PHYSICIAN: Dr. Uvaldo Gomez M.D. REFERRING DOCTOR: anam Mcmillan DATE OF ADMISSION: 10/05/2021 20:10 (CDT) REFERRING FACILITY [facility] HOME TYPE AND DETAILS: Type of home: single family house # of levels in the residence: 1 # of steps to enter the residence: 0 # of steps within the residence: 0 ONSET DATE: 09/30/2021 PRIMARY DIAGNOSIS-RELATED SURGERIES: posterior C1-C2 fusion with iliac crest autograft harvest SECONDARY/COMORBID DIAGNOSES (TIERED): - Tier 3 Chronic systolic (congestive) heart failure (I50.22) - Non-Tiered Unspecified atrial fibrillation (I48.91) Chronic kidney disease, unspecified (N18.9) Essential (primary) hypertension (I10) Type 2 diabetes mellitus without complications (E11.9) Hypo-osmolality and hyponatremia (E87.1) Syncope and collapse (R55) Hyperkalemia (E87.5) Alzheimer's disease with late onset (G30.1) Atrioventricular block, first degree (I44.0) - N/A Grade III dens fracture Left C7 facet fracture HISTORY OF PRESENT ILLNESS (HPI): Pt. is a 71 yo Right-handed male. On 09/30/2021 he was admitted to [facility] with diagnosis Epidural hemorrhage without loss of consciousnes s, initial encounter (S06.4X0A). His impairment category is Brain Dysfunction 02 - Closed Injury (03.29). Pre-morbidly, Pt. was independent/mod-I in Locomotion and Self-Care; and he had good Safety Awareness , Balance, Transfers Control, and Endurance. Currently, he has deficits of Locomotion, Safety Awareness, Balance, Self-Care, Transfers Control, an d Endurance. Pt. is now referred to [facility] for acute in-patient rehabilitation in order to maximize patient's functional independence in activities of daily living, strength, ROM, and mobi lity. Patient has realistic goal of being discharged at assistance level 6-Amalia to reside at Home with Pt self. MEDICATION ALLERGIES: No Known Drug Allergies (NKDA) ENVIRONMENTAL ALLERGIES: - Substance Allergies None Known - Other Allergies None Known PAST MEDICAL HISTORY: Chronic kidney disease, unspecified (N18.9) Essential (primary) hypertension (I10) Grade III dens fracture Hypo-osmolality and hyponatremia (E87.1) Left C7 facet fracture S12.14XS Type 2 diabetes mellitus without complications (E11.9) Type III dens fracture Unspecified atrial fibrillation (I48.91) SOCIAL HISTORY: - Home Living Alone REVIEW OF SYSTEMS: - Gen No Chills Fatigue No Fever - Eyes No Double Vision No itchiness - ENMT No Difficulty Swallowing - CVS No Chest Discomfort No Chest Pain Fatigue No Weight Gain - Resp No Cough No Shortness of Breath - GI Continent No Abdominal Pain No Constipation No Diarrhea - Continent No Kidney Pain No Painful Urination No Urinary Urgency - MSK No Joint Pain Muscle Cramps No Stiffness - Skin No Itching No Rash No Suspicious Lesions - Neuro Coordination Difficulty Difficulty with Concentration No Memory Loss No Seizures Weakness - Psych No Anxiety No Depression No HIV Exposure No Persistent Infections No Seasonal Allergies - Endo No Cold/Heat Intolerance No Excessive Hunger No Excessive Thirst No Excessive Urination PHYSICAL EXAM - Gen Alert and awake Lying in bed No apparent distress Oriented to: person, time, and place - Vital Signs Temperature: 98.0 F SBP/DBP: 123/71 Pulse: 64 Resp: 18 Vital signs stable, afebrile No abnormalities - Eyes No abnormalities - ENMT [place] cervical collar is in place - Neck [place] cervical collar is in place - CVS RRR - Chest No abnormalities VITAL SIGNS Temperature: 97.6 F SBP/DBP: 120/71 Pulse: 63 Resp: 16 NURSING: - Shower allowing shower - Lab Results blood Sugar Check ACHS - Bladder care per protocol - Skin care per protocol PRECAUTIONS: - Fall Precaution Low bed TABS alarm Bed alarm - Weight Bearing Precaution No lifting greater than 10lbs - Incontinence Bowel Incontinence - DVT Risk due to restricted mobility and age - Skin Breakdown Risk due to restricted mobility and age ACTIVITIES OOB only with supervision QI SCORES: - Self-Care A. Eating 04-Supervision or touching assistance B. Oral hygiene 04-Supervision or touching assistance C. Toileting hygiene 02-Substantial/maximal assistance E. Shower/bathe self 88-Not attempted due to medical condition or safety concerns F. Upper body dressing 04-Supervision or touching assistance G. Lower body dressing 02-Substantial/maximal assistance H. Putting on/taking off footwear 02-Substantial/maximal assistance - Mobility A. Roll left and right 03-Partial/moderate assistance B. Sit to lying 03-Partial/moderate assistance C. Lying to sitting on side of bed 03-Partial/moderate assistance D. Sit to stand 03-Partial/moderate assistance E. Chair/raz-xo-lcpgy transfer 07-Patient refused F. Toilet transfer 07-Patient refused G. Car transfer 88-Not attempted due to medical condition or safety concerns I. Walk 10 feet 88-Not attempted due to medical condition or safety concerns J. Walk 50 feet with two turns 88-Not attempted due to medical condition or safety concerns K. Walk 150 feet 88-Not attempted due to medical condition or safety concerns L. Walking 10 feet on uneven surfaces 88-Not attempted due to medical condition or safety concerns M. 1 step (curb) 88-Not attempted due to medical condition or safety concerns N. 4 steps 88-Not attempted due to medical condition or safety concerns O. 12 steps 88-Not attempted due to medical condition or safety concerns P. Picking up object 88-Not attempted due to medical condition or safety concerns R. Wheel 50 feet with two turns 09-Not applicable S. Wheel 150 feet 09-Not applicable - Bladder and Bowel Bladder continence 9-Not applicable Bowel continence 1-Occasionally incontinent - Endurance Fair - Balance Poor - Safety Awareness Poor CURRENT FUNC. DEFICITS: Self-Care, Mobility, Endurance, Balance, and Safety Awareness MEDICATIONS: - Other See attached MAR (Medication Administration Record) ASSESSMENT: Pt. is a 71 yo Right-handed male.On 09/30/2021 he was admitted to [facility] with diagnosis Epidural hemorr edy without loss of consciousness, initial encounter (S06.4X0A).His impairment category is Brain Dys function 02 - Closed Injury (03.29).Pre-morbidly, Pt. was independent/mod-I in Locomotion and Self-C are; and he had good Safety Awareness, Balance, Transfers Control, and Endurance.Currently, he has de ficits of Locomotion, Safety Awareness, Balance, Self-Care, Transfers Control, and Endurance.Pt. is n ow referred to [facility] for acute in-patient rehabilitation in order to maxi luis fernando patient's functional independence in activities of daily living, strength, ROM, and mobility.- R ehab Goal Patient has realistic goal of being discharged at assistance level 6-Amalia to reside at Home with Pt self. - Physical Therapy Gait dysfunction - to improve, our physical therapists will perform initial evaluation of pt's status upon admission and devise an individualized program for Gait Training, and Wheel Chair mobility Inability to transfer - to improve, our physical therapists will perform initial evaluation of pt's s tatus upon admission and devise an individualized program for Bed mobility Need for home safety evaluation - to improve, our physical therapists will perform initial evaluation of pt's status upon admission and devise an individualized program for Home Evaluation Need in caregiver upon discharge - to improve, our physical therapists will perform initial evaluatio n of pt's status upon admission and devise an individualized program for Caregiver Training New precaution - to improve, our physical therapists will perform initial evaluation of pt's status u ang admission and devise an individualized program for Patient precaution education Poor balance - to improve, our physical therapists will perform initial evaluation of pt's status upo n admission and devise an individualized program for Balance Training Poor endurance - to improve, our physical therapists will perform initial evaluation of pt's status u ang admission and devise an individualized program for Endurance Training Weakness - to improve, our physical therapists will perform initial evaluation of pt's status upon ad mission and devise an individualized program for Aquatic Therapy, Neuromuscular Reeducation, and Stre ngthening Achieving independence - to improve, our physical therapists will perform initial evaluation of pt's status upon admission and devise an individualized program for Community Reintegration Activities - Occupational Therapy ADL deficits - to improve, our occupation therapists will perform initial evaluation of pt's status u ang admission and devise an individualized program for Bathing, Bed mobility, Community Reintegration , Cooking, Dressing, Eating, Fine Motor Skills, Grooming, Homemaking, Kitchen Mobility, Laundry, Yelena ent Education, Safety Awareness, Splinting - Positioning, Transfers(Toilet, Tub, Shower), and Wheel C hair Management Need for child care centre manager - to improve, our occupation therapists will perform initial evaluation of pt's s tatus upon admission and devise an individualized program for Caregiver Training Weakness - to improve, our occupation therapists will perform initial evaluation of pt's status upon admission and devise an individualized program for Aquatic Therapy, Balance, Endurance, UE ROM, and U E strengthening MEDICAL PLAN: - Diet Type Start Regular - Diet - Liquid Texture Start Regular - Tube Feed Start N/A - Incontinence Bowel Incontinence - Lab Results blood Sugar Check ACHS - Bladder care per protocol - DVT Risk due to restricted mobility and age - Skin Breakdown Risk due to restricted mobility and age - Weight Bearing Precaution No lifting greater than 10lbs - Fall Precaution Low bed 1 to 1 supervision TABS alarm Bed alarm - Skin care per protocol - Other See attached MAR (Medication Administration Record) - Diet - Solid Texture Regular - Shower shower DISCHARGE PLAN: - Estimated Length of Stay (days) 17. - Consensus on plan Discharge plan has been discussed with primary caregiver. Patient/Family is in agreement with the mae n. Primary caregiver is in agreement with the plan. - Patient/Family Goals Return home independently. - Planned Living Setting Upon Discharge Home, to live alone. Transitional Living. Primary caregiver: Pt self. SIGNATURE PANEL: (CDT)
--- NOTE | 2021-10-06 18:13 | PAPE ---
POST ADMISSION PHYSICIAN EVALUATION PATIENT: [facility] MR# [id number] REFERRING DOCTOR anam Mcmillan EVALUATION DATE AND TIME 10/06/2021 18:10 (CDT) NAME ABHISHEK RODRIGUES DATE OF 1950 AGE 71 PHONE ( SSN# [id number] GENDER male EVALUATING PHYSICIAN Dr. Uvaldo Gomez M.D. ADMISSION DIAGNOSIS: Epidural hemorrhage without loss of consciousness, initial encounter (S06.4X0A) ONSET DATE 09/30/2021 SECONDARY/COMORBID DIAGNOSES TIERED: - Tier 3 Chronic systolic (congestive) heart failure (I50.22) - Non-Tiered Unspecified atrial fibrillation (I48.91) Chronic kidney disease, unspecified (N18.9) Essential (primary) hypertension (I10) Type 2 diabetes mellitus without complications (E11.9) Hypo-osmolality and hyponatremia (E87.1) Syncope and collapse (R55) Hyperkalemia (E87.5) Alzheimer's disease with late onset (G30.1) Atrioventricular block, first degree (I44.0) - N/A Grade III dens fracture Left C7 facet fracture POST-ADMISSION FUNCTIONAL/MEDICAL STATUS: - Bladder Same accident frequency: 7-Ind - No accidents in the past 7 days - Bowel Same accident frequency: 7-Ind - No accidents in the past 7 days - Walking Same score based on distance walked: 0(N/A) - Wheelchair Same score based on distance traveled: 0(N/A) STATUS CHANGE EVALUATION: No change in Functional or Medical Status is identified compared with Pre-Admission screening. PATIENT NEEDS CLOSE MEDICAL SUPERVISION BY A REHABILITATION PHYSICIAN FOR: Coordination of Treatment Team Diabetes Management Medical and Co-Morbidity Management Wound Care Bowel and Bladder Management Pain Management Post-Op Complications PATIENT REQUIRES 24X7 REHAB NURSING FOR MEDICAL AND FUNCTIONAL MGT. OF THE FOLLOWING DEFICITS: Disease Management Medication Management Patient requires 24x7 Rehabilitation Nursing for: Pain Issues, Identifying and preventing risk factor s, Monitoring and reporting current medical conditions, Assisting with ambulation and transfer, Analilia ting with all ADL-s, Teaching patients about disease process and medications, Family teaching, Provid ing safe environment, Bowel and Bladder Issues, Skin Integrity, and Medication Management Patient/Family Education Providing Safe Environment Skin Integrity PATIENT REQUIRES INTENSIVE, COORDINATED INTERDISCIPLINARY APPROACH TO REHAB: Arranging Home Equipment/Services Discharge Planning Family Intervention/Training Patient needs Dietary and Nutrition Services for: Adequate Nutrition, Nutritional Supplements, and Nu tritional Education Patient needs Inspector Soldering and/or Case Management for: Discharge Planning, Arranging Home Equipmen t or Services, and Family Interventions Inspector Soldering/Case Management LIST OF IDENTIFIED AND POTENTIAL PROBLEMS: Alteration in leisure activities Bladder, Incontinence Blood Pressure, Hypertension/hypotension Issues Bowel, Incontinence Diabetes, Hyperglycemia/hypoglycemia Issues Falls, Actual or Potential Infection, Actual or Potential Mobility Impaired Pain, Alteration in Comfort Self Care Deficit Skin Integrity, Actual or Potential Urinary Tract Infection (UTI), Actual or Potential RISK FOR COMPLICATIONS - DVT Active and Passive ROM exercises. Administer medications per MD order. Assist patient with frequent p osition changes. Elevate BLE. - CHF Assess/ Monitor pt for s/s cardiac/respiratory distress. - Skin Breakdown Encourage ambulation as tolerated. Repositioning q 2 hours. Use of pillows or foam wedges while in be d. - Pain Anticipate the need for pain medication for optimal pain managment. Assess pt for pain and Administer prescribed pain medication as needed. Educate patient on relaxation and deep breathing techniques. - Falls Maintain call light within patient reach for easy access to nursing assistance. Provide assistance ge tting out of bed and with ambulation. Provide assistive devices. - Stroke Assess/ Monitor and maintain patient pain level. Assess/ Monitor patient blood pressure. - Cardiac Failure Assess/ Monitor pt cardiac status. INTERVENTIONS - Type 2 Diabetes Assess LE for temperature, pulses, color, and sensation. Assess for signs of hyperglycemia. Monitor b lood glucose and effectiveness of medications/Insulin. - Hypertension Assess/ Monitor patient B/P and treat with prescribed medications. Increase physical activity. Implem ent healthy diet. - Afib Administer prescribed anticoagulants and monitor effectiveness. Assess/ Monitor pt cardiac and respir atory status. Monitor pt labs. - Chronic Kidney Disease Assess fluid status and identify potential sources of imbalance. Encourage alternating activity with rest. Ensure proper nutritional intake within the limits of the treatment regimen. Promote increased self-care and greater independence. - Congestive Heart Failure Administer Supplemental O2 as indicated. Administer prescribed medications per physician orders. Asse ss/ Monitor and treat fluid overload. Assess/ Monitor pt O2 Sats via Pulse Ox. Monitor pt labs. - Pain Assess/Monitor pt pain and treat with prescribed pain medications. Anticipate the need for pain medic ation for optimal pain managment. Educate pt on relaxation techniques and deep breathing. Non pharmac ological pain management. - Hyponatremia 2l fluid restriction. PATIENT COULD BE AT RISK FOR COMPLICATIONS FROM ADVERSE MEDICAL CONDITIONS DUE TO HIS/HER COMORBIDITI ES AND THE RIGORS OF THE INTENSIVE REHABILLITATION PROGRAM. METHODS OR INTERVENTIONS TO AVOID COMPLIC ATIONS INCLUDE: - Bleeding Assess lab values and manage abnormalities. Nursing to teach precautions for anti-coagulation therapy . Wound to be assessed every shift. - Infection Clinical staff to assess and manage the signs and symptoms of infection including fever, redness, war mth, etc. - Urinary Tract Infection - Falls Patient will be evaluated for Fall Precautions and will be placed on Fall Precautions as indicated pe r protocol. - Skin Breakdown Nursing will assess skin daily using assessment tool and will place on Skin Breakdown Precautions as indicated per protocol. - Pain Clinical staff may employ non-medication methods such as massage, distraction, decrease stimulus, etc . as needed. Clinical staff will assess patient's pain level every shift per protocol to assess and e nsure pain management effectiveness. Medications will be given and the pain level re-assessed. PRELIMINARY PLAN OF CARE: - Physical Therapy Patient needs Physical Therapy for a daily minimum of 1.5 hours at least 5 out of 7 days, to improve: Mobility, Strengthening, Transfers, Stretching, ROM, Endurance, Ability to manage stairs, Gait, and Balance. - Speech Therapy Patient needs Speech Therapy for a daily minimum of 0.5 hours at least 5 out of 7 days, to improve: S wallowing, Cognition, Language Skills, and Compensatory Strategies. - Rehabilitation Nursing Patient requires 24x7 Rehabilitation Nursing for: Pain Issues, Identifying and preventing risk factor s, Monitoring and reporting current medical conditions, Assisting with ambulation and transfer, Analilia ting with all ADL-s, Teaching patients about disease process and medications, Family teaching, Provid ing safe environment, Bowel and Bladder Issues, Skin Integrity, and Medication Management. Patient needs Inspector Soldering and/or Case Management for: Discharge Planning, Arranging Home Equipmen t or Services, and Family Interventions. - Dietary and Nutrition Services Patient needs Dietary and Nutrition Services for: Adequate Nutrition, Nutritional Supplements, and Nu tritional Education. - Occupational Therapy Patient needs Occupational Therapy for a daily minimum of 1.5 hours at least 5 out of 7 days, to impr ove Activities of Daily Living, including: Eating, Grooming, Bathing, Dressing, Toileting, Toilet Tra nsfers, Community Reintegration, Higher functional activities, Adaptive Equipment, Splinting, Househo ld Tasks, and Other activities as determined. QI SCORES: - Self-Care A. Eating 04-Supervision or touching assistance B. Oral hygiene 04-Supervision or touching assistance C. Toileting hygiene 02-Substantial/maximal assistance E. Shower/bathe self 88-Not attempted due to medical condition or safety concerns F. Upper body dressing 04-Supervision or touching assistance G. Lower body dressing 02-Substantial/maximal assistance H. Putting on/taking off footwear 02-Substantial/maximal assistance - Mobility A. Roll left and right 03-Partial/moderate assistance B. Sit to lying 03-Partial/moderate assistance C. Lying to sitting on side of bed 03-Partial/moderate assistance D. Sit to stand 03-Partial/moderate assistance E. Chair/[id number]-fp-[id number] transfer 07-Patient refused F. Toilet transfer 07-Patient refused G. Car transfer 88-Not attempted due to medical condition or safety concerns I. Walk 10 feet 88-Not attempted due to medical condition or safety concerns J. Walk 50 feet with two turns 88-Not attempted due to medical condition or safety concerns K. Walk 150 feet 88-Not attempted due to medical condition or safety concerns L. Walking 10 feet on uneven surfaces 88-Not attempted due to medical condition or safety concerns M. 1 step (curb) 88-Not attempted due to medical condition or safety concerns N. 4 steps 88-Not attempted due to medical condition or safety concerns O. 12 steps 88-Not attempted due to medical condition or safety concerns P. Picking up object 88-Not attempted due to medical condition or safety concerns R. Wheel 50 feet with two turns 09-Not applicable S. Wheel 150 feet 09-Not applicable - Bladder and Bowel Bladder continence 9-Not applicable Bowel continence 1-Occasionally incontinent - Endurance Fair - Balance Poor - Safety Awareness Poor POTENTIAL FUNCTIONAL GOALS FOR PATIENT TO ACHIEVE BY DISCHARGE: - Safety Precaution Patient will remain free from falls or injury at time of discharge. - Bed Mobility Patient will perform bed mobility at 4-Melony level of assistance. - Transfers Patient will complete transfers from bed to chair at 4-Melony level of assistance. - Mobility Patient will ambulate 150 ft with 4-Melony level of assistance with RW. PATIENT REHAB POTENTIAL Cassidy RODRIGUES is able and expected to receive 3 hours of individualized therapy daily on at least 5 of e very 7 days O. TORTOSA's prognosis for significant practical improvement within a reasonable period of time appea rs Good Expected level of measurable improvement will be of a practical value to Cassidy RODRIGUES's functional capa city or adaptations to impairments Has a viable Discharge Plan Medically appropriate; condition is sufficiently stable to participate in intensive rehab program DISCHARGE PLAN: - Estimated Length of Stay (days) 17. - Consensus on plan Discharge plan has been discussed with primary caregiver. Patient/Family is in agreement with the mae n. Primary caregiver is in agreement with the plan. - Patient/Family Goals Return home independently. - Planned Living Setting Upon Discharge Home, to live alone. Transitional Living. Primary caregiver: Pt self. CONCLUSION ON REHABILITATION NECESSITY: I have evaluated patient's pre-admission functional status and, comparing it to the patient's post-ad mission functional status now, I conclude that the pre-admission assessment was accurate. Patient's c ondition on admission supports the medical necessity of admission to IR[facility]. It is safe to proceed with patient's therapy program. SIGNATURE PANEL: (CDT)
[2021-10-06] MEDS: GABAPENTIN 300 MG CAP PO SCH (19:54)
[2021-10-06] MEDS: MELATONIN 3 MG TABLET PO SCH (19:54)
[2021-10-06] MEDS: TRAZODONE 50 MG TABLET PO SCH (19:55)
[2021-10-06] MEDS: CRANBERRY FRUIT EXTRACT 200 MG CAP PO SCH (19:55)
[2021-10-06] MEDS: APIXABAN 2.5 MG TABLET PO SCH (19:55)
[2021-10-07] MEDS: carvediloL 25 MG TAB PO SCH ×2 (05:20→17:10)
[2021-10-07] MEDS: LEVOTHYROXINE SOD 0.05 MG TABLET PO SCH (05:20)
[2021-10-07 05:42] LABS: Potassium 5.3 mmol/L (3.5-5.1)
[2021-10-07] MEDS: HYDROCODONE/APAP 10/325 TAB PO PRN ×4 (07:16→19:49)
[2021-10-07] MEDS: PANTOPRAZOLE 40MG TABLET PO SCH (07:16)
[2021-10-07] MEDS: INSULIN -REGULAR HUMAN 50 UNIT/0.5 ML ML SQ SCH ×4 (07:17→23:06)
[2021-10-07] MEDS: CRANBERRY FRUIT EXTRACT 200 MG CAP PO SCH ×3 (08:00→19:47)
[2021-10-07] MEDS: POLYETHYL GLY 3350 17 GM/DOSE PO SCH (08:00)
[2021-10-07] MEDS: DOCUSATE NA 100 MG CAP PO SCH (08:43)
[2021-10-07] MEDS: SENOSIDES 8.6 MG TAB PO SCH (08:43)
[2021-10-07] MEDS: APIXABAN 2.5 MG TABLET PO SCH ×2 (08:44→19:48)
[2021-10-07] MEDS: METFORMIN HCL 500 MG TAB PO SCH ×2 (08:44→16:39)
[2021-10-07] MEDS: GLIMEPIRIDE 2 MG TABLET PO SCH (08:44)
[2021-10-07] MEDS: AMIODARONE HCL 200 MG TAB PO SCH (08:44)
[2021-10-07] MEDS: GABAPENTIN 300 MG CAP PO SCH ×2 (08:45→19:48)
[2021-10-07] MEDS: DULOXETINE 30 MG CAP PO SCH (08:45)
[2021-10-07] MEDS: TAMSULOSIN 0.4 MG SR CAP PO SCH (08:45)
[2021-10-07] MEDS: FERROUS SULFATE 325 MG TAB PO SCH ×2 (08:46→16:39)
[2021-10-07] MEDS: ONDANSETRON 4 MG (ODT) TAB PO PRN (08:51)
[2021-10-07] MEDS: RIVASTIGMINE 4.6 MG/24 HR PATCH TD SCH (10:21)
[2021-10-07] MEDS: methocarbamoL 750 MG TAB PO PRN (10:21)
[2021-10-07] MEDS: ALOGLIPTIN BENZOATE 12.5 MG TABLET PO SCH (11:53)
--- NOTE | 2021-10-07 14:01 | P.RH.PN ---
Estimated Length of Stay: 16 Expected Discharge Date: 10/21/21 Discharge Disposition Plan: Home Family Support: Yes Fpc Goal: Mobility, Transfers, Self Care Vital Signs: Last Vital Signs Temp 97.5 F 10/07/21 08:43 Pulse 60 10/07/21 08:43 Resp 14 10/07/21 12:51 BP 154/71 H 10/07/21 08:43 Pulse Ox 95 10/07/21 12:51 Laboratory: Laboratory Last Values WBC 10.30 K/uL (4.3-10.9) 10/06/21 04:17 RBC 3.62 M/uL (4.33-5.43) L 10/06/21 04:17 Hgb 9.5 g/dL (13.6-17.9) L 10/06/21 04:17 Hct 28.7 % (39.6-49.0) L 10/06/21 04:17 MCV 79.4 fL (80-100) L 10/06/21 04:17 MCH 26.3 pg (27.0-35.0) L 10/06/21 04:17 MCHC 33.2 g/dL (32.0-36.0) 10/06/21 04:17 RDW 17.1 % (12.1-15.2) H 10/06/21 04:17 Plt Count 450 K/uL (152-406) H 10/06/21 04:17 MPV 6.2 fL (7.6-11.3) L 10/06/21 04:17 Neutrophils % 56.7 % (41.7-73.7) 10/06/21 04:17 Lymphocytes % 27.7 % (15.3-44.8) 10/06/21 04:17 Monocytes % 7.4 % (3.3-12.3) 10/06/21 04:17 Eosinophils % 7.3 % (0-4.4) H 10/06/21 04:17 Basophils % 0.9 % (0-1.3) 10/06/21 04:17 Absolute Neutrophils 5.8 K/uL (1.8-8.0) 10/06/21 04:17 Absolute Lymphocytes 2.9 K/uL (0.7-4.9) 10/06/21 04:17 Absolute Monocytes 0.8 K/uL (0.1-1.3) 10/06/21 04:17 Absolute Eosinophils 0.7 K/uL (0-0.5) H 10/06/21 04:17 Absolute Basophils 0.1 K/uL (0-0.5) 10/06/21 04:17 Sodium 128 mmol/L (136-145) L 10/07/21 04:20 Potassium 5.3 mmol/L (3.5-5.1) H 10/07/21 04:20 Chloride 98 mmol/L (98-107) 10/07/21 04:20 Carbon Dioxide 24 mmol/L (21-32) 10/07/21 04:20 Anion Gap 11.3 mEq/L (5.0-15.0) 10/07/21 04:20 BUN 28 mg/dL (7-18) H 10/07/21 04:20 Creatinine 1.10 mg/dL (0.55-1.3) 10/07/21 04:20 Est GFR (CKD-EPI) 72 ml/min (=/>90) L 10/07/21 04:20 Glucose 117 mg/dL (74-106) H 10/07/21 04:20 POC Glucose 243 mg/dL (65-120) H 10/07/21 11:32 Calcium 8.5 mg/dL (8.5-10.1) 10/07/21 04:20 Magnesium 2.1 mg/dL (1.8-2.4) 10/06/21 04:17 Albumin 2.6 g/dL (3.4-5.0) L 10/06/21 04:17 Prealbumin 13.5 mg/dL (20-40) L 10/06/21 04:17 Urine Color Cancelled 10/05/21 23:58 Urine Clarity Cancelled 10/05/21 23:58 Urine pH Cancelled 10/05/21 23:58 Ur Specific [place] Cancelled 10/05/21 23:58 Glucose (UA)(Auto) Cancelled 10/05/21 23:58 Urine Ketones Cancelled 10/05/21 23:58 Urine Blood Cancelled 10/05/21 23:58 Urine Nitrite Cancelled 10/05/21 23:58 Urine Bilirubin Cancelled 10/05/21 23:58 Urine Urobilinogen Cancelled 10/05/21 23:58 Ur Leukocyte Esterase Cancelled 10/05/21 23:58 Urine RBC Cancelled 10/05/21 23:58 Urine Red Cell Clumps Cancelled 10/05/21 23:58 Urine WBC Cancelled 10/05/21 23:58 Urine WBC Clumps Cancelled 10/05/21 23:58 Ur Squamous Epith Cells Cancelled 10/05/21 23:58 U Non-Squamous Epi Cells Cancelled 10/05/21 23:58 Ur Transition Epith Cell Cancelled 10/05/21 23:58 Ur Renal Epithelial Cell Cancelled 10/05/21 23:58 Calcium Carbonate Cryst Cancelled 10/05/21 23:58 Calcium Oxalate Crystal Cancelled 10/05/21 23:58 Leucine Crystals Cancelled 10/05/21 23:58 Cystine Crystals Cancelled 10/05/21 23:58 Uric Acid Crystals Cancelled 10/05/21 23:58 Triple Phos Crystals Cancelled 10/05/21 23:58 Tyrosine Crystals Cancelled 10/05/21 23:58 Unidentified Crystals Cancelled 10/05/21 23:58 Amorphous Crystals Cancelled 10/05/21 23:58 Urine Bacteria Cancelled 10/05/21 23:58 Hyaline Casts Cancelled 10/05/21 23:58 Granular Casts Cancelled 10/05/21 23:58 Waxy Casts Cancelled 10/05/21 23:58 RBC Casts Cancelled 10/05/21 23:58 WBC Casts Cancelled 10/05/21 23:58 Urine Mucus Cancelled 10/05/21 23:58 Urine Trichomonas Cancelled 10/05/21 23:58 Ur Yeast w Hyphae Cancelled 10/05/21 23:58 Urine Yeast (Budding) Cancelled 10/05/21 23:58 Urine Sperm Cancelled 10/05/21 23:58 Ur Oval Fat Bodies Cancelled 10/05/21 23:58 Urine Total Protein Cancelled 10/05/21 23:58 Urine Ascorbic Acid Cancelled 10/05/21 23:58 Urine Fat Cancelled 10/05/21 23:58 SARS-CoV-2 Rap RNA(RT-PCR) Negative (NEGATIVE) 10/05/21 23:50 Weight: 154 lb 3.2 oz Wound Present: No Closed Surgical Incision Present: Yes Negative Pressure Wound Therapy Present: No Physician Update: Walked 100' min assit, transfered mod assistance. Vomited this morning after eating. He had a lot of cervical pain which improved with a soft collar. His occupation scores are at min to mod assistance. Summary: Patient's care plan and watermaster goals have been reviewed and revised as necessary. Please see the Rehabilitation Signature page for all necessary signatures.
[2021-10-07] MEDS: MELATONIN 3 MG TABLET PO SCH (19:48)
[2021-10-07] MEDS: TRAZODONE 50 MG TABLET PO SCH (19:48)
[2021-10-08] MEDS: POLYETHYL GLY 3350 17 GM/DOSE PO PRN (04:24)
[2021-10-08] MEDS: HYDROCODONE/APAP 10/325 TAB PO PRN ×4 (04:48→23:17)
[2021-10-08] MEDS: carvediloL 25 MG TAB PO SCH ×2 (05:05→17:18)
[2021-10-08] MEDS: LEVOTHYROXINE SOD 0.05 MG TABLET PO SCH (05:58)
[2021-10-08] MEDS: INSULIN -REGULAR HUMAN 50 UNIT/0.5 ML ML SQ SCH ×4 (06:45→20:26)
[2021-10-08] MEDS: DULOXETINE 30 MG CAP PO SCH (07:28)
[2021-10-08] MEDS: TAMSULOSIN 0.4 MG SR CAP PO SCH (07:28)
[2021-10-08] MEDS: GABAPENTIN 300 MG CAP PO SCH ×2 (07:28→20:25)
[2021-10-08] MEDS: FERROUS SULFATE 325 MG TAB PO SCH ×2 (07:28→17:18)
[2021-10-08] MEDS: SENOSIDES 8.6 MG TAB PO SCH (07:28)
[2021-10-08] MEDS: METFORMIN HCL 500 MG TAB PO SCH ×2 (07:28→17:18)
[2021-10-08] MEDS: AMIODARONE HCL 200 MG TAB PO SCH (07:28)
[2021-10-08] MEDS: CRANBERRY FRUIT EXTRACT 200 MG CAP PO SCH ×2 (07:28→20:25)
[2021-10-08] MEDS: GLIMEPIRIDE 2 MG TABLET PO SCH (07:29)
[2021-10-08] MEDS: PANTOPRAZOLE 40MG TABLET PO SCH (07:29)
[2021-10-08] MEDS: DOCUSATE NA 100 MG CAP PO SCH (07:29)
[2021-10-08] MEDS: APIXABAN 2.5 MG TABLET PO SCH ×2 (07:29→20:25)
[2021-10-08] MEDS: ALOGLIPTIN BENZOATE 12.5 MG TABLET PO SCH (08:38)
[2021-10-08] MEDS: RIVASTIGMINE 4.6 MG/24 HR PATCH TD SCH (08:38)
[2021-10-08] MEDS: ONDANSETRON 4 MG (ODT) TAB PO PRN (10:25)
[2021-10-08] MEDS: methocarbamoL 750 MG TAB PO PRN (18:52)
[2021-10-08] MEDS: MELATONIN 3 MG TABLET PO SCH (20:25)
[2021-10-08] MEDS: TRAZODONE 50 MG TABLET PO SCH (20:25)
[2021-10-09] MEDS: HYDROCODONE/APAP 10/325 TAB PO PRN ×4 (04:36→17:37)
[2021-10-09] MEDS: carvediloL 25 MG TAB PO SCH ×2 (05:05→16:53)
[2021-10-09] MEDS: LEVOTHYROXINE SOD 0.05 MG TABLET PO SCH (05:14)
[2021-10-09 05:42] LABS: Absolute Lymphocytes (CBC) 2.5 K/uL (0.7-4.9); Hematocrit 27.3 % (39.6-49.0); Lymphocytes % 28.8 % (15.3-44.8); MCV 79.9 fL (80-100); MPV 6.3 fL (7.6-11.3); RBC Red Blood Cell Count 3.42 M/uL (4.33-5.43)
[2021-10-09 05:53] LABS: Potassium 4.9 mmol/L (3.5-5.1)
[2021-10-09] MEDS: PANTOPRAZOLE 40MG TABLET PO SCH (07:09)
[2021-10-09] MEDS: INSULIN -REGULAR HUMAN 50 UNIT/0.5 ML ML SQ SCH ×4 (07:30→20:51)
[2021-10-09] MEDS: ONDANSETRON 4 MG (ODT) TAB PO PRN ×2 (07:35→18:56)
[2021-10-09] MEDS: RIVASTIGMINE 4.6 MG/24 HR PATCH TD SCH (07:50)
[2021-10-09] MEDS: FERROUS SULFATE 325 MG TAB PO SCH ×2 (08:00→16:49)
[2021-10-09] MEDS: ALOGLIPTIN BENZOATE 12.5 MG TABLET PO SCH (08:34)
[2021-10-09] MEDS: GLIMEPIRIDE 2 MG TABLET PO SCH (08:34)
[2021-10-09] MEDS: CRANBERRY FRUIT EXTRACT 200 MG CAP PO SCH ×2 (08:34→20:50)
[2021-10-09] MEDS: AMIODARONE HCL 200 MG TAB PO SCH (08:34)
[2021-10-09] MEDS: TAMSULOSIN 0.4 MG SR CAP PO SCH (08:34)
[2021-10-09] MEDS: METFORMIN HCL 500 MG TAB PO SCH ×2 (08:35→16:54)
[2021-10-09] MEDS: DULOXETINE 30 MG CAP PO SCH (08:35)
[2021-10-09] MEDS: DOCUSATE NA 100 MG CAP PO SCH (08:35)
[2021-10-09] MEDS: APIXABAN 2.5 MG TABLET PO SCH ×2 (08:35→20:50)
[2021-10-09] MEDS: GABAPENTIN 300 MG CAP PO SCH ×2 (08:35→20:50)
[2021-10-09] MEDS: SENOSIDES 8.6 MG TAB PO SCH (08:35)
[2021-10-09] MEDS ORDERED: SODIUM CHLORIDE 1 GM TAB PO ONE (11:40)
[2021-10-09] MEDS: NA CHLORIDE 0.9% 1,000 ML IV SCH ×2 (11:52→21:26)
[2021-10-09] MEDS: SODIUM CHLORIDE 1 GM TAB PO SCH (16:54)
[2021-10-09] MEDS ORDERED: DEXTROSE 10%-WATER 125 ML IV PRN (17:00)
[2021-10-09] MEDS: TRAZODONE 50 MG TABLET PO SCH (20:50)
[2021-10-09] MEDS: MELATONIN 3 MG TABLET PO SCH (20:50)
[2021-10-09] MEDS: methocarbamoL 750 MG TAB PO PRN (20:50)
[2021-10-09] MEDS: ONDANSETRON 4 MG/2 ML VIAL IV PRN (20:51)
[2021-10-10] MEDS: HYDROCODONE/APAP 10/325 TAB PO PRN ×5 (01:56→19:09)
[2021-10-10] MEDS: carvediloL 25 MG TAB PO SCH ×2 (05:40→17:07)
[2021-10-10] MEDS: LEVOTHYROXINE SOD 0.05 MG TABLET PO SCH (05:40)
[2021-10-10] MEDS: INSULIN -REGULAR HUMAN 50 UNIT/0.5 ML ML SQ SCH ×4 (06:51→19:59)
[2021-10-10] MEDS: DOCUSATE NA 100 MG CAP PO SCH (08:00)
[2021-10-10] MEDS: FERROUS SULFATE 325 MG TAB PO SCH ×2 (08:03→17:07)
[2021-10-10] MEDS: CRANBERRY FRUIT EXTRACT 200 MG CAP PO SCH ×2 (08:04→19:08)
[2021-10-10] MEDS: TAMSULOSIN 0.4 MG SR CAP PO SCH (08:04)
[2021-10-10] MEDS: GLIMEPIRIDE 2 MG TABLET PO SCH (08:04)
[2021-10-10] MEDS: APIXABAN 2.5 MG TABLET PO SCH ×2 (08:04→19:08)
[2021-10-10] MEDS: SENOSIDES 8.6 MG TAB PO SCH (08:04)
[2021-10-10] MEDS: AMIODARONE HCL 200 MG TAB PO SCH (08:04)
[2021-10-10] MEDS: METFORMIN HCL 500 MG TAB PO SCH ×2 (08:05→17:08)
[2021-10-10] MEDS: DULOXETINE 30 MG CAP PO SCH (08:05)
[2021-10-10] MEDS: GABAPENTIN 300 MG CAP PO SCH ×2 (08:05→19:08)
[2021-10-10] MEDS: PANTOPRAZOLE 40MG TABLET PO SCH (08:05)
[2021-10-10] MEDS: SODIUM CHLORIDE 1 GM TAB PO SCH ×2 (08:05→17:07)
[2021-10-10] MEDS: RIVASTIGMINE 4.6 MG/24 HR PATCH TD SCH (10:09)
[2021-10-10] MEDS: ALOGLIPTIN BENZOATE 12.5 MG TABLET PO SCH (10:09)
[2021-10-10] MEDS: HYDROCORTISONE 1 % CREAM 30GM TOP PRN (10:09)
[2021-10-10] MEDS: MELATONIN 3 MG TABLET PO SCH (19:09)
[2021-10-10] MEDS: TRAZODONE 50 MG TABLET PO SCH (19:59)
[2021-10-11] MEDS: HYDROCODONE/APAP 10/325 TAB PO PRN ×4 (05:11→19:20)
[2021-10-11] MEDS: carvediloL 25 MG TAB PO SCH ×2 (05:12→16:27)
[2021-10-11] MEDS: LEVOTHYROXINE SOD 0.05 MG TABLET PO SCH (05:12)
[2021-10-11] MEDS: PANTOPRAZOLE 40MG TABLET PO SCH (07:00)
[2021-10-11] MEDS: RIVASTIGMINE 4.6 MG/24 HR PATCH TD SCH (07:14)
[2021-10-11] MEDS: INSULIN -REGULAR HUMAN 50 UNIT/0.5 ML ML SQ SCH ×4 (07:30→19:56)
[2021-10-11] MEDS: GLIMEPIRIDE 2 MG TABLET PO SCH (08:21)
[2021-10-11] MEDS: AMIODARONE HCL 200 MG TAB PO SCH (08:24)
[2021-10-11] MEDS: DULOXETINE 30 MG CAP PO SCH (08:24)
[2021-10-11] MEDS: CRANBERRY FRUIT EXTRACT 200 MG CAP PO SCH ×2 (08:24→19:15)
[2021-10-11] MEDS: ALOGLIPTIN BENZOATE 12.5 MG TABLET PO SCH (08:24)
[2021-10-11] MEDS: SODIUM CHLORIDE 1 GM TAB PO SCH ×2 (08:24→16:45)
[2021-10-11] MEDS: GABAPENTIN 300 MG CAP PO SCH ×2 (08:24→19:15)
[2021-10-11] MEDS: SENOSIDES 8.6 MG TAB PO SCH (08:25)
[2021-10-11] MEDS: TAMSULOSIN 0.4 MG SR CAP PO SCH (08:25)
[2021-10-11] MEDS: APIXABAN 2.5 MG TABLET PO SCH ×2 (08:25→19:15)
[2021-10-11] MEDS: DOCUSATE NA 100 MG CAP PO SCH (08:25)
[2021-10-11] MEDS: METFORMIN HCL 500 MG TAB PO SCH ×2 (08:25→16:45)
[2021-10-11] MEDS: FERROUS SULFATE 325 MG TAB PO SCH (09:05)
--- NOTE | 2021-10-11 18:32 | R.PN ---
PROGRESS NOTES ENCOUNTER DATE AND TIME: 10/11/2021 18:25 (CDT) NAME ABHISHEK RODRIGUES DATE OF : 1950 DATE OF ADMISSION: 10/05/2021 20:10 (CDT) Epidural hemorrhage without loss of consciousness, initial encounter (S06.4X0A)CHIEF COMPLAINT: Epidural hemorrhage SUBJECTIVE: Pt denied any Shortness of Breath. Pt denied any depression. WBC 8.7, Hgb 9.0, glucose 94 to 251. Covid-19 is negative. Ambulated 250' with minimum assistance usi ng a rolling walker. VITAL SIGNS Temperature: 98.7 F SBP/DBP: 162/82 Pulse: 61 Resp: 16 MEDICATION ALLERGIES: No Known Drug Allergies (NKDA) ENVIRONMENTAL ALLERGIES: - Substance Allergies None Known - Other Allergies None Known NURSING: - Shower allowing shower - Lab Results blood Sugar Check ACHS - Bladder care per protocol - Skin care per protocol PRECAUTIONS: - Fall Precaution Low bed TABS alarm Bed alarm - Weight Bearing Precaution No lifting greater than 10lbs - Incontinence Bowel Incontinence - DVT Risk due to restricted mobility and age - Skin Breakdown Risk due to restricted mobility and age ACTIVITIES OOB only with supervision THERAPIES: - Dietary and Nutrition Adequate Nutrition. Nutritional Education. Nutritional Supplements. - Occupational Therapy Cognitive Retraining. Patient needs Occupational Therapy for a daily minimum of 1.5 hours at least 5 out of 7 days, to improve Activities of Daily Living, including: Eating, Grooming, Bathing, Dressing, Toileting, Toilet Transfers, Community Reintegration, Higher functional activities, Adaptive Equipme nt, Splinting, Household Tasks, and Other activities as determined. Visual Perceptual Training. - Physical Therapy Patient needs Physical Therapy for a daily minimum of 1.5 hours at least 5 out of 7 days, to improve: Mobility, Strengthening, Transfers, Stretching, ROM, Endurance, Ability to manage stairs, Gait, and Balance. PHYSICAL EXAM - Gen Alert and awake Lying in bed No apparent distress Oriented to: person, time, and place - Vital Signs Temperature: 98.0 F SBP/DBP: 123/71 Pulse: 64 Resp: 18 Vital signs stable, afebrile No abnormalities - Eyes No abnormalities - ENMT Pep[place] J cervical collar is in place - Neck Pepin J cervical collar is in place - CVS RRR - Chest No abnormalities ASSESSMENT: Pt. is a 71 yo Right-handed male.On 09/30/2021 he was admitted to [facility] with diagnosis Epidural hemorr edy without loss of consciousness, initial encounter (S06.4X0A).His impairment category is Brain Dys function 02 - Closed Injury (03.29).Pre-morbidly, Pt. was independent/mod-I in Locomotion and Self-C are; and he had good Safety Awareness, Balance, Transfers Control, and Endurance.Currently, he has de ficits of Locomotion, Safety Awareness, Balance, Self-Care, Transfers Control, and Endurance.Pt. is n ow referred to [facility] for acute in-patient rehabilitation in order to maxi luis fernando patient's functional independence in activities of daily living, strength, ROM, and mobility.- R ehab Goal Patient has realistic goal of being discharged at assistance level 6-Amalia to reside at Home with Pt self. MDM/PLAN: - Physical Therapy Gait dysfunction - to improve, our physical therapists will perform initial evaluation of pt's statu s upon admission and devise an individualized program for Gait Training, and Wheel Chair mobility Inability to transfer - to improve, our physical therapists will perform initial evaluation of pt's status upon admission and devise an individualized program for Bed mobility Need for home safety evaluation - to improve, our physical therapists will perform initial evaluatio n of pt's status upon admission and devise an individualized program for Home Evaluation Need in caregiver upon discharge - to improve, our physical therapists will perform initial evaluati on of pt's status upon admission and devise an individualized program for Caregiver Training New precaution - to improve, our physical therapists will perform initial evaluation of pt's status upon admission and devise an individualized program for Patient precaution education Poor balance - to improve, our physical therapists will perform initial evaluation of pt's status up on admission and devise an individualized program for Balance Training Poor endurance - to improve, our physical therapists will perform initial evaluation of pt's status upon admission and devise an individualized program for Endurance Training Weakness - to improve, our physical therapists will perform initial evaluation of pt's status upon a dmission and devise an individualized program for Aquatic Therapy, Neuromuscular Reeducation, and Str engthening Achieving independence - to improve, our physical therapists will perform initial evaluation of pt's status upon admission and devise an individualized program for Community Reintegration Activities - Occupational Therapy ADL deficits - to improve, our occupation therapists will perform initial evaluation of pt's status upon admission and devise an individualized program for Bathing, Bed mobility, Community Reintegratio n, Cooking, Dressing, Eating, Fine Motor Skills, Grooming, Homemaking, Kitchen Mobility, Laundry, Pat ient Education, Safety Awareness, Splinting - Positioning, Transfers(Toilet, Tub, Shower), and Wheel Chair Management Need for date night caregiver - to improve, our occupation therapists will perform initial evaluation of pt's status upon admission and devise an individualized program for Caregiver Training Weakness - to improve, our occupation therapists will perform initial evaluation of pt's status upon admission and devise an individualized program for Aquatic Therapy, Balance, Endurance, UE ROM, and UE strengthening - Other See attached MAR (Medication Administration Record) - Diet Type Continue Regular - Diet - Liquid Texture Continue Regular - Tube Feed Continue N/A - Incontinence Bowel Incontinence - Lab Results blood Sugar Check ACHS - Bladder care per protocol - DVT Risk due to restricted mobility and age - Skin Breakdown Risk due to restricted mobility and age - Weight Bearing Precaution No lifting greater than 10lbs - Fall Precaution Low bed 1 to 1 supervision TABS alarm Bed alarm - Skin care per protocol - Diet - Solid Texture Continue Regular - Shower allowing shower FUNCTIONAL STATUS: UPDATED AT WEEKLY TEAM CONFERENCE - Bladder Same accident frequency: 7-Ind - No accidents in the past 7 days - Bowel Same accident frequency: 7-Ind - No accidents in the past 7 days - Walking Same score based on distance walked: 0(N/A) - Wheelchair Same score based on distance traveled: 0(N/A) FUNCTIONAL STATUS: - Self-Care A. Eating Amalia B. Grooming Amalia C. Bathing modA D. Dressing - Upper Melony E. Dressing - Lower modA F. Toileting sup - Sphincter Control G. Bladder control Amalia H. Bowel control Amalia - Transfers Control I. Bed/Chair/Wheelchair Melony J. Toilet sup K. Tub/Shower modA - Locomotion L. Walk/Wheelchair (B) Melony M. Stairs modA - Communication N. Comprehension (B) sup O. Expression (B) sup - Social Cognition P. Social Interaction Amalia Q. Problem Solving sup R. Memory sup - Endurance Fair - Balance Fair - Safety Awareness Fair QI SCORES: - Self-Care A. Eating 04-Supervision or touching assistance B. Oral hygiene 04-Supervision or touching assistance C. Toileting hygiene 02-Substantial/maximal assistance E. Shower/bathe self 88-Not attempted due to medical condition or safety concerns F. Upper body dressing 04-Supervision or touching assistance G. Lower body dressing 02-Substantial/maximal assistance H. Putting on/taking off footwear 02-Substantial/maximal assistance - Mobility A. Roll left and right 03-Partial/moderate assistance B. Sit to lying 03-Partial/moderate assistance C. Lying to sitting on side of bed 03-Partial/moderate assistance D. Sit to stand 03-Partial/moderate assistance E. Chair/[id number]-[id number] transfer 07-Patient refused F. Toilet transfer 07-Patient refused G. Car transfer 88-Not attempted due to medical condition or safety concerns I. Walk 10 feet 88-Not attempted due to medical condition or safety concerns J. Walk 50 feet with two turns 88-Not attempted due to medical condition or safety concerns K. Walk 150 feet 88-Not attempted due to medical condition or safety concerns L. Walking 10 feet on uneven surfaces 88-Not attempted due to medical condition or safety concerns M. 1 step (curb) 88-Not attempted due to medical condition or safety concerns N. 4 steps 88-Not attempted due to medical condition or safety concerns O. 12 steps 88-Not attempted due to medical condition or safety concerns P. Picking up object 88-Not attempted due to medical condition or safety concerns R. Wheel 50 feet with two turns 09-Not applicable S. Wheel 150 feet 09-Not applicable - Bladder and Bowel Bladder continence 9-Not applicable Bowel continence 1-Occasionally incontinent - Endurance Fair - Balance Poor - Safety Awareness Poor CURRENT FUNC. DEFICITS: Self-Care, Mobility, Endurance, Balance, and Safety Awareness SIGNATURE PANEL: (CDT)
[2021-10-11] MEDS: MELATONIN 3 MG TABLET PO SCH (19:15)
[2021-10-11] MEDS: TRAZODONE 50 MG TABLET PO SCH (19:19)
--- NOTE | 2021-10-12 03:22 | OP ---
Date of Procedure: 10/11/2021 Surgeon: Carlos Amador MD Indications: Foreign body, left foot. History Of Present Illness: The patient is a 71-year-old gentleman who was admitted to the rehab [facility] t physical therapy and he was complaining of a questionable foreign body in his left plant ar foot. Exam limited to the foot revealed a palpable 1 mm foreign body in the mid plantar foot. Procedure Note: Under sterile conditions, an 18-gauge needle was used to remove this piece of very s mall glass. There was no bleeding noted and sterile dressing was applied. The patient tolerated the procedure in stable condition. /MICHELA Voice ID: [id number] Report ID: [id number]
[2021-10-12] MEDS: LEVOTHYROXINE SOD 0.05 MG TABLET PO SCH (05:50)
[2021-10-12] MEDS: carvediloL 25 MG TAB PO SCH ×2 (05:50→17:12)
[2021-10-12] MEDS: HYDROCODONE/APAP 10/325 TAB PO PRN ×4 (05:50→18:47)
[2021-10-12] MEDS: PANTOPRAZOLE 40MG TABLET PO SCH (06:55)
[2021-10-12] MEDS: INSULIN -REGULAR HUMAN 50 UNIT/0.5 ML ML SQ SCH ×4 (07:30→19:31)
[2021-10-12] MEDS: ONDANSETRON 4 MG/2 ML VIAL IV PRN (07:45)
[2021-10-12] MEDS: CRANBERRY FRUIT EXTRACT 200 MG CAP PO SCH ×2 (08:12→18:48)
[2021-10-12] MEDS: ALOGLIPTIN BENZOATE 12.5 MG TABLET PO SCH (08:12)
[2021-10-12] MEDS: GLIMEPIRIDE 2 MG TABLET PO SCH (08:12)
[2021-10-12] MEDS: METFORMIN HCL 500 MG TAB PO SCH ×2 (08:12→17:12)
[2021-10-12] MEDS: TAMSULOSIN 0.4 MG SR CAP PO SCH (08:12)
[2021-10-12] MEDS: GABAPENTIN 300 MG CAP PO SCH ×2 (08:13→18:48)
[2021-10-12] MEDS: DULOXETINE 30 MG CAP PO SCH (08:13)
[2021-10-12] MEDS: SODIUM CHLORIDE 1 GM TAB PO SCH ×2 (08:14→17:12)
[2021-10-12] MEDS: FE SULF/FA/VIT B COMP & C TAB PO SCH (08:14)
[2021-10-12] MEDS: APIXABAN 2.5 MG TABLET PO SCH ×2 (08:14→19:31)
[2021-10-12] MEDS: SENOSIDES 8.6 MG TAB PO SCH (08:14)
[2021-10-12] MEDS: AMIODARONE HCL 200 MG TAB PO SCH (08:14)
[2021-10-12] MEDS: DOCUSATE NA 100 MG CAP PO SCH (08:14)
[2021-10-12] MEDS: RIVASTIGMINE 4.6 MG/24 HR PATCH TD SCH (10:05)
--- NOTE | 2021-10-12 19:07 | R.PN ---
PROGRESS NOTES ENCOUNTER DATE AND TIME: 10/12/2021 19:04 (CDT) NAME ABHISHEK RODRIGUES DATE OF : 1950 DATE OF ADMISSION: 10/05/2021 20:10 (CDT) Epidural hemorrhage without loss of consciousness, initial encounter (S06.4X0A)CHIEF COMPLAINT: Epidural hemorrhage SUBJECTIVE: Pt denied any Shortness of Breath. Pt denied any depression. WBC 8.7, Hgb 9.0, glucose 109 to 158. Covid-19 is negative. Ambulated 500' with standby assistance us ing a rolling walker. VITAL SIGNS Temperature: 98.2 F SBP/DBP: 168/79 Pulse: 58 Resp: 16 MEDICATION ALLERGIES: No Known Drug Allergies (NKDA) ENVIRONMENTAL ALLERGIES: - Substance Allergies None Known - Other Allergies None Known NURSING: - Shower allowing shower - Lab Results blood Sugar Check ACHS - Bladder care per protocol - Skin care per protocol PRECAUTIONS: - Fall Precaution Low bed TABS alarm Bed alarm - Weight Bearing Precaution No lifting greater than 10lbs - Incontinence Bowel Incontinence - DVT Risk due to restricted mobility and age - Skin Breakdown Risk due to restricted mobility and age ACTIVITIES OOB only with supervision THERAPIES: - Dietary and Nutrition Adequate Nutrition. Nutritional Education. Nutritional Supplements. - Occupational Therapy Cognitive Retraining. Patient needs Occupational Therapy for a daily minimum of 1.5 hours at least 5 out of 7 days, to improve Activities of Daily Living, including: Eating, Grooming, Bathing, Dressing, Toileting, Toilet Transfers, Community Reintegration, Higher functional activities, Adaptive Equipme nt, Splinting, Household Tasks, and Other activities as determined. Visual Perceptual Training. - Physical Therapy Patient needs Physical Therapy for a daily minimum of 1.5 hours at least 5 out of 7 days, to improve: Mobility, Strengthening, Transfers, Stretching, ROM, Endurance, Ability to manage stairs, Gait, and Balance. PHYSICAL EXAM - Gen Alert and awake Lying in bed No apparent distress Oriented to: person, time, and place - Vital Signs Temperature: 98.0 F SBP/DBP: 123/71 Pulse: 64 Resp: 18 Vital signs stable, afebrile No abnormalities - Eyes No abnormalities - ENMT Te[place] J cervical collar is in place - Neck Te[place] J cervical collar is in place - CVS RRR - Chest No abnormalities ASSESSMENT: Pt. is a 71 yo Right-handed male.On 09/30/2021 he was admitted to [facility] with diagnosis Epidural hemorr edy without loss of consciousness, initial encounter (S06.4X0A).His impairment category is Brain Dys function 02 - Closed Injury (03.29).Pre-morbidly, Pt. was independent/mod-I in Locomotion and Self-C are; and he had good Safety Awareness, Balance, Transfers Control, and Endurance.Currently, he has de ficits of Locomotion, Safety Awareness, Balance, Self-Care, Transfers Control, and Endurance.Pt. is n ow referred to [facility] for acute in-patient rehabilitation in order to maxi luis fernando patient's functional independence in activities of daily living, strength, ROM, and mobility.- R ehab Goal Patient has realistic goal of being discharged at assistance level 6-Amalia to reside at Home with Pt self. MDM/PLAN: - Physical Therapy Gait dysfunction - to improve, our physical therapists will perform initial evaluation of pt's statu s upon admission and devise an individualized program for Gait Training, and Wheel Chair mobility Inability to transfer - to improve, our physical therapists will perform initial evaluation of pt's status upon admission and devise an individualized program for Bed mobility Need for home safety evaluation - to improve, our physical therapists will perform initial evaluatio n of pt's status upon admission and devise an individualized program for Home Evaluation Need in caregiver upon discharge - to improve, our physical therapists will perform initial evaluati on of pt's status upon admission and devise an individualized program for Caregiver Training New precaution - to improve, our physical therapists will perform initial evaluation of pt's status upon admission and devise an individualized program for Patient precaution education Poor balance - to improve, our physical therapists will perform initial evaluation of pt's status up on admission and devise an individualized program for Balance Training Poor endurance - to improve, our physical therapists will perform initial evaluation of pt's status upon admission and devise an individualized program for Endurance Training Weakness - to improve, our physical therapists will perform initial evaluation of pt's status upon a dmission and devise an individualized program for Aquatic Therapy, Neuromuscular Reeducation, and Str engthening Achieving independence - to improve, our physical therapists will perform initial evaluation of pt's status upon admission and devise an individualized program for Community Reintegration Activities - Occupational Therapy ADL deficits - to improve, our occupation therapists will perform initial evaluation of pt's status upon admission and devise an individualized program for Bathing, Bed mobility, Community Reintegratio n, Cooking, Dressing, Eating, Fine Motor Skills, Grooming, Homemaking, Kitchen Mobility, Laundry, Pat ient Education, Safety Awareness, Splinting - Positioning, Transfers(Toilet, Tub, Shower), and Wheel Chair Management Need for career agent - to improve, our occupation therapists will perform initial evaluation of pt's status upon admission and devise an individualized program for Caregiver Training Weakness - to improve, our occupation therapists will perform initial evaluation of pt's status upon admission and devise an individualized program for Aquatic Therapy, Balance, Endurance, UE ROM, and UE strengthening - Other See attached MAR (Medication Administration Record) - Diet Type Continue Regular - Diet - Liquid Texture Continue Regular - Tube Feed Continue N/A - Incontinence Bowel Incontinence - Lab Results blood Sugar Check ACHS - Bladder care per protocol - DVT Risk due to restricted mobility and age - Skin Breakdown Risk due to restricted mobility and age - Weight Bearing Precaution No lifting greater than 10lbs - Fall Precaution Low bed 1 to 1 supervision TABS alarm Bed alarm - Skin care per protocol - Diet - Solid Texture Continue Regular - Shower allowing shower FUNCTIONAL STATUS: UPDATED AT WEEKLY TEAM CONFERENCE - Bladder Same accident frequency: 7-Ind - No accidents in the past 7 days - Bowel Same accident frequency: 7-Ind - No accidents in the past 7 days - Walking Same score based on distance walked: 0(N/A) - Wheelchair Same score based on distance traveled: 0(N/A) FUNCTIONAL STATUS: - Self-Care A. Eating Amalia B. Grooming Amalia C. Bathing modA D. Dressing - Upper Melony E. Dressing - Lower modA F. Toileting sup - Sphincter Control G. Bladder control Amalia H. Bowel control Amalia - Transfers Control I. Bed/Chair/Wheelchair Melony J. Toilet sup K. Tub/Shower modA - Locomotion L. Walk/Wheelchair (B) Melony M. Stairs modA - Communication N. Comprehension (B) sup O. Expression (B) sup - Social Cognition P. Social Interaction Amalia Q. Problem Solving sup R. Memory sup - Endurance Fair - Balance Fair - Safety Awareness Fair QI SCORES: - Self-Care A. Eating 04-Supervision or touching assistance B. Oral hygiene 04-Supervision or touching assistance C. Toileting hygiene 02-Substantial/maximal assistance E. Shower/bathe self 88-Not attempted due to medical condition or safety concerns F. Upper body dressing 04-Supervision or touching assistance G. Lower body dressing 02-Substantial/maximal assistance H. Putting on/taking off footwear 02-Substantial/maximal assistance - Mobility A. Roll left and right 03-Partial/moderate assistance B. Sit to lying 03-Partial/moderate assistance C. Lying to sitting on side of bed 03-Partial/moderate assistance D. Sit to stand 03-Partial/moderate assistance E. Chair/[id number] transfer 07-Patient refused F. Toilet transfer 07-Patient refused G. Car transfer 88-Not attempted due to medical condition or safety concerns I. Walk 10 feet 88-Not attempted due to medical condition or safety concerns J. Walk 50 feet with two turns 88-Not attempted due to medical condition or safety concerns K. Walk 150 feet 88-Not attempted due to medical condition or safety concerns L. Walking 10 feet on uneven surfaces 88-Not attempted due to medical condition or safety concerns M. 1 step (curb) 88-Not attempted due to medical condition or safety concerns N. 4 steps 88-Not attempted due to medical condition or safety concerns O. 12 steps 88-Not attempted due to medical condition or safety concerns P. Picking up object 88-Not attempted due to medical condition or safety concerns R. Wheel 50 feet with two turns 09-Not applicable S. Wheel 150 feet 09-Not applicable - Bladder and Bowel Bladder continence 9-Not applicable Bowel continence 1-Occasionally incontinent - Endurance Fair - Balance Poor - Safety Awareness Poor CURRENT FUNC. DEFICITS: Self-Care, Mobility, Endurance, Balance, and Safety Awareness SIGNATURE PANEL: (CDT)
[2021-10-12] MEDS: TRAZODONE 50 MG TABLET PO SCH (19:31)
[2021-10-12] MEDS: MELATONIN 3 MG TABLET PO SCH (19:31)
[2021-10-12] MEDS: methocarbamoL 750 MG TAB PO PRN (23:00)
[2021-10-13] MEDS: HYDROCODONE/APAP 10/325 TAB PO PRN ×5 (02:40→19:59)
[2021-10-13 04:30] LABS: Absolute Lymphocytes (CBC) 2.7 K/uL (0.7-4.9); Hematocrit 26.7 % (39.6-49.0); Lymphocytes % 32.3 % (15.3-44.8); MCV 78.3 fL (80-100); RBC Red Blood Cell Count 3.42 M/uL (4.33-5.43)
[2021-10-13 04:50] LABS: Albumin 2.4 g/dL (3.4-5.0); Magnesium 2.2 mg/dL (1.8-2.4); Potassium 5.2 mmol/L (3.5-5.1); Prealbumin 12.2 mg/dL (20-40)
[2021-10-13] MEDS: carvediloL 25 MG TAB PO SCH ×2 (05:22→17:10)
[2021-10-13] MEDS: LEVOTHYROXINE SOD 0.05 MG TABLET PO SCH (05:22)
[2021-10-13] MEDS: INSULIN -REGULAR HUMAN 50 UNIT/0.5 ML ML SQ SCH ×4 (07:30→20:56)
[2021-10-13] MEDS: PANTOPRAZOLE 40MG TABLET PO SCH (07:55)
[2021-10-13] MEDS: ONDANSETRON 4 MG (ODT) TAB PO PRN (08:34)
[2021-10-13] MEDS: APIXABAN 2.5 MG TABLET PO SCH ×2 (08:35→19:59)
[2021-10-13] MEDS: DOCUSATE NA 100 MG CAP PO SCH (09:03)
[2021-10-13] MEDS: SENOSIDES 8.6 MG TAB PO SCH (09:03)
[2021-10-13] MEDS: SODIUM CHLORIDE 1 GM TAB PO SCH ×2 (09:03→17:10)
[2021-10-13] MEDS: TAMSULOSIN 0.4 MG SR CAP PO SCH (09:03)
[2021-10-13] MEDS: AMIODARONE HCL 200 MG TAB PO SCH (09:04)
[2021-10-13] MEDS: CRANBERRY FRUIT EXTRACT 200 MG CAP PO SCH ×2 (09:04→20:00)
[2021-10-13] MEDS: FE SULF/FA/VIT B COMP & C TAB PO SCH (09:04)
[2021-10-13] MEDS: GABAPENTIN 300 MG CAP PO SCH ×2 (09:04→20:00)
[2021-10-13] MEDS: GLIMEPIRIDE 2 MG TABLET PO SCH (09:04)
[2021-10-13] MEDS: METFORMIN HCL 500 MG TAB PO SCH ×2 (09:04→17:09)
[2021-10-13] MEDS: DULOXETINE 30 MG CAP PO SCH (09:05)
[2021-10-13] MEDS: RIVASTIGMINE 4.6 MG/24 HR PATCH TD SCH (09:15)
[2021-10-13] MEDS: DRISDOL (VITAMIN D=ERGOCALCIFEROL) 50000 UNIT CAP PO SCH (09:15)
[2021-10-13] MEDS: ALOGLIPTIN BENZOATE 12.5 MG TABLET PO SCH (09:15)
--- NOTE | 2021-10-13 18:40 | R.PN ---
PROGRESS NOTES ENCOUNTER DATE AND TIME: 10/13/2021 18:35 (CDT) NAME ABHISHEK RODRIGUES DATE OF : 1950 DATE OF ADMISSION: 10/05/2021 20:10 (CDT) Epidural hemorrhage without loss of consciousness, initial encounter (S06.4X0A)CHIEF COMPLAINT: Epidural hemorrhage SUBJECTIVE: Pt denied any Shortness of Breath. Pt denied any depression. WBC 8.5, Hgb 8.8, glucose 109 to 197. Covid-19 is negative. Prealbumin 12.2. Ambulated 500' with standby assistance using a rolling walker. Self-propelled wheelchair 500' with st andby assistance. VITAL SIGNS Temperature: 97.4 F SBP/DBP: 150/72 Pulse: 62 Resp: 16 MEDICATION ALLERGIES: No Known Drug Allergies (NKDA) ENVIRONMENTAL ALLERGIES: - Substance Allergies None Known - Other Allergies None Known NURSING: - Shower allowing shower - Lab Results blood Sugar Check ACHS - Bladder care per protocol - Skin care per protocol PRECAUTIONS: - Fall Precaution Low bed TABS alarm Bed alarm - Weight Bearing Precaution No lifting greater than 10lbs - Incontinence Bowel Incontinence - DVT Risk due to restricted mobility and age - Skin Breakdown Risk due to restricted mobility and age ACTIVITIES OOB only with supervision THERAPIES: - Dietary and Nutrition Adequate Nutrition. Nutritional Education. Nutritional Supplements. - Occupational Therapy Cognitive Retraining. Patient needs Occupational Therapy for a daily minimum of 1.5 hours at least 5 out of 7 days, to improve Activities of Daily Living, including: Eating, Grooming, Bathing, Dressing, Toileting, Toilet Transfers, Community Reintegration, Higher functional activities, Adaptive Equipme nt, Splinting, Household Tasks, and Other activities as determined. Visual Perceptual Training. - Physical Therapy Patient needs Physical Therapy for a daily minimum of 1.5 hours at least 5 out of 7 days, to improve: Mobility, Strengthening, Transfers, Stretching, ROM, Endurance, Ability to manage stairs, Gait, and Balance. PHYSICAL EXAM - Gen Alert and awake Lying in bed No apparent distress Oriented to: person, time, and place - Vital Signs Temperature: 98.0 F SBP/DBP: 123/71 Pulse: 64 Resp: 18 Vital signs stable, afebrile No abnormalities - Eyes No abnormalities - ENMT [place] cervical collar is in place - Neck [place] J cervical collar is in place - CVS RRR - Chest No abnormalities ASSESSMENT: Pt. is a 71 yo Right-handed male.On 09/30/2021 he was admitted to [facility] with diagnosis Epidural hemorr edy without loss of consciousness, initial encounter (S06.4X0A).His impairment category is Brain Dys function 02 - Closed Injury (03.29).Pre-morbidly, Pt. was independent/mod-I in Locomotion and Self-C are; and he had good Safety Awareness, Balance, Transfers Control, and Endurance.Currently, he has de ficits of Locomotion, Safety Awareness, Balance, Self-Care, Transfers Control, and Endurance.Pt. is n ow referred to [facility] for acute in-patient rehabilitation in order to maxi luis fernando patient's functional independence in activities of daily living, strength, ROM, and mobility.- R ehab Goal Patient has realistic goal of being discharged at assistance level 6-Amalia to reside at Home with Pt self. MDM/PLAN: - Physical Therapy Gait dysfunction - to improve, our physical therapists will perform initial evaluation of pt's statu s upon admission and devise an individualized program for Gait Training, and Wheel Chair mobility Inability to transfer - to improve, our physical therapists will perform initial evaluation of pt's status upon admission and devise an individualized program for Bed mobility Need for home safety evaluation - to improve, our physical therapists will perform initial evaluatio n of pt's status upon admission and devise an individualized program for Home Evaluation Need in caregiver upon discharge - to improve, our physical therapists will perform initial evaluati on of pt's status upon admission and devise an individualized program for Caregiver Training New precaution - to improve, our physical therapists will perform initial evaluation of pt's status upon admission and devise an individualized program for Patient precaution education Poor balance - to improve, our physical therapists will perform initial evaluation of pt's status up on admission and devise an individualized program for Balance Training Poor endurance - to improve, our physical therapists will perform initial evaluation of pt's status upon admission and devise an individualized program for Endurance Training Weakness - to improve, our physical therapists will perform initial evaluation of pt's status upon a dmission and devise an individualized program for Aquatic Therapy, Neuromuscular Reeducation, and Str engthening Achieving independence - to improve, our physical therapists will perform initial evaluation of pt's status upon admission and devise an individualized program for Community Reintegration Activities - Occupational Therapy ADL deficits - to improve, our occupation therapists will perform initial evaluation of pt's status upon admission and devise an individualized program for Bathing, Bed mobility, Community Reintegratio n, Cooking, Dressing, Eating, Fine Motor Skills, Grooming, Homemaking, Kitchen Mobility, Laundry, Pat ient Education, Safety Awareness, Splinting - Positioning, Transfers(Toilet, Tub, Shower), and Wheel Chair Management Need for zoo caretaker - to improve, our occupation therapists will perform initial evaluation of pt's status upon admission and devise an individualized program for Caregiver Training Weakness - to improve, our occupation therapists will perform initial evaluation of pt's status upon admission and devise an individualized program for Aquatic Therapy, Balance, Endurance, UE ROM, and UE strengthening - Other See attached MAR (Medication Administration Record) - Diet Type Continue Regular - Diet - Liquid Texture Continue Regular - Tube Feed Continue N/A - Incontinence Bowel Incontinence - Lab Results blood Sugar Check ACHS - Bladder care per protocol - DVT Risk due to restricted mobility and age - Skin Breakdown Risk due to restricted mobility and age - Weight Bearing Precaution No lifting greater than 10lbs - Fall Precaution Low bed 1 to 1 supervision TABS alarm Bed alarm - Skin care per protocol - Diet - Solid Texture Continue Regular - Shower allowing shower FUNCTIONAL STATUS: UPDATED AT WEEKLY TEAM CONFERENCE - Bladder Same accident frequency: 7-Ind - No accidents in the past 7 days - Bowel Same accident frequency: 7-Ind - No accidents in the past 7 days - Walking Same score based on distance walked: 0(N/A) - Wheelchair Same score based on distance traveled: 0(N/A) FUNCTIONAL STATUS: - Self-Care A. Eating Amalia B. Grooming Amalia C. Bathing modA D. Dressing - Upper Melony E. Dressing - Lower modA F. Toileting sup - Sphincter Control G. Bladder control Amalia H. Bowel control Amalia - Transfers Control I. Bed/Chair/Wheelchair Melony J. Toilet sup K. Tub/Shower modA - Locomotion L. Walk/Wheelchair (B) Melony M. Stairs modA - Communication N. Comprehension (B) sup O. Expression (B) sup - Social Cognition P. Social Interaction Amalia Q. Problem Solving sup R. Memory sup - Endurance Fair - Balance Fair - Safety Awareness Fair QI SCORES: - Self-Care A. Eating 04-Supervision or touching assistance B. Oral hygiene 04-Supervision or touching assistance C. Toileting hygiene 02-Substantial/maximal assistance E. Shower/bathe self 88-Not attempted due to medical condition or safety concerns F. Upper body dressing 04-Supervision or touching assistance G. Lower body dressing 02-Substantial/maximal assistance H. Putting on/taking off footwear 02-Substantial/maximal assistance - Mobility A. Roll left and right 03-Partial/moderate assistance B. Sit to lying 03-Partial/moderate assistance C. Lying to sitting on side of bed 03-Partial/moderate assistance D. Sit to stand 03-Partial/moderate assistance E. Chair/[id number] transfer 07-Patient refused F. Toilet transfer 07-Patient refused G. Car transfer 88-Not attempted due to medical condition or safety concerns I. Walk 10 feet 88-Not attempted due to medical condition or safety concerns J. Walk 50 feet with two turns 88-Not attempted due to medical condition or safety concerns K. Walk 150 feet 88-Not attempted due to medical condition or safety concerns L. Walking 10 feet on uneven surfaces 88-Not attempted due to medical condition or safety concerns M. 1 step (curb) 88-Not attempted due to medical condition or safety concerns N. 4 steps 88-Not attempted due to medical condition or safety concerns O. 12 steps 88-Not attempted due to medical condition or safety concerns P. Picking up object 88-Not attempted due to medical condition or safety concerns R. Wheel 50 feet with two turns 09-Not applicable S. Wheel 150 feet 09-Not applicable - Bladder and Bowel Bladder continence 9-Not applicable Bowel continence 1-Occasionally incontinent - Endurance Fair - Balance Poor - Safety Awareness Poor CURRENT FUNC. DEFICITS: Self-Care, Mobility, Endurance, Balance, and Safety Awareness SIGNATURE PANEL: (CDT)
[2021-10-13] MEDS: methocarbamoL 750 MG TAB PO PRN (19:59)
[2021-10-13] MEDS: TRAZODONE 50 MG TABLET PO SCH (20:00)
[2021-10-13] MEDS: MELATONIN 3 MG TABLET PO SCH (20:00)
[2021-10-14] MEDS: HYDROCODONE/APAP 10/325 TAB PO PRN ×4 (03:12→17:05)
[2021-10-14] MEDS: carvediloL 25 MG TAB PO SCH ×2 (05:07→17:05)
[2021-10-14] MEDS: LEVOTHYROXINE SOD 0.05 MG TABLET PO SCH (05:07)
[2021-10-14] MEDS: methocarbamoL 750 MG TAB PO PRN ×2 (05:08→19:03)
[2021-10-14] MEDS: ONDANSETRON 4 MG (ODT) TAB PO PRN (07:00)
[2021-10-14] MEDS: PANTOPRAZOLE 40MG TABLET PO SCH (07:00)
[2021-10-14] MEDS: INSULIN -REGULAR HUMAN 50 UNIT/0.5 ML ML SQ SCH ×4 (07:09→19:57)
[2021-10-14] MEDS: DULOXETINE 30 MG CAP PO SCH (08:08)
[2021-10-14] MEDS: APIXABAN 2.5 MG TABLET PO SCH ×2 (08:08→19:55)
[2021-10-14] MEDS: AMIODARONE HCL 200 MG TAB PO SCH (08:09)
[2021-10-14] MEDS: CRANBERRY FRUIT EXTRACT 200 MG CAP PO SCH ×2 (08:09→19:55)
[2021-10-14] MEDS: DOCUSATE NA 100 MG CAP PO SCH (08:09)
[2021-10-14] MEDS: SENOSIDES 8.6 MG TAB PO SCH (09:04)
[2021-10-14] MEDS: GLIMEPIRIDE 2 MG TABLET PO SCH (09:04)
[2021-10-14] MEDS: GABAPENTIN 300 MG CAP PO SCH ×2 (09:05→19:55)
[2021-10-14] MEDS: SODIUM CHLORIDE 1 GM TAB PO SCH (09:05)
[2021-10-14] MEDS: METFORMIN HCL 500 MG TAB PO SCH ×2 (09:07→17:05)
[2021-10-14] MEDS: ALOGLIPTIN BENZOATE 12.5 MG TABLET PO SCH (09:08)
[2021-10-14] MEDS: RIVASTIGMINE 4.6 MG/24 HR PATCH TD SCH (09:08)
[2021-10-14] MEDS: TAMSULOSIN 0.4 MG SR CAP PO SCH (09:08)
[2021-10-14] MEDS: FE SULF/FA/VIT B COMP & C TAB PO SCH (09:09)
--- NOTE | 2021-10-14 10:04 | P.RH.PN ---
Estimated Length of Stay: 16 Expected Discharge Date: 10/21/21 Discharge Disposition Plan: Home Family Support: Yes Vital Signs: Last Vital Signs Temp 97.4 F 10/14/21 07:44 Pulse 58 10/14/21 07:44 Resp 18 10/14/21 08:00 BP 153/78 H 10/14/21 07:44 Pulse Ox 98 10/14/21 08:00 Laboratory: Laboratory Last Values WBC 8.50 K/uL (4.3-10.9) 10/13/21 04:13 RBC 3.42 M/uL (4.33-5.43) L 10/13/21 04:13 Hgb 8.8 g/dL (13.6-17.9) L 10/13/21 04:13 Hct 26.7 % (39.6-49.0) L 10/13/21 04:13 MCV 78.3 fL (80-100) L 10/13/21 04:13 MCH 25.7 pg (27.0-35.0) L 10/13/21 04:13 MCHC 32.8 g/dL (32.0-36.0) 10/13/21 04:13 RDW 17.7 % (12.1-15.2) H 10/13/21 04:13 Plt Count 438 K/uL (152-406) H 10/13/21 04:13 MPV 6.0 fL (7.6-11.3) L 10/13/21 04:13 Neutrophils % 48.7 % (41.7-73.7) 10/13/21 04:13 Lymphocytes % 32.3 % (15.3-44.8) 10/13/21 04:13 Monocytes % 9.7 % (3.3-12.3) 10/13/21 04:13 Eosinophils % 8.1 % (0-4.4) H 10/13/21 04:13 Basophils % 1.2 % (0-1.3) 10/13/21 04:13 Absolute Neutrophils 4.1 K/uL (1.8-8.0) 10/13/21 04:13 Absolute Lymphocytes 2.7 K/uL (0.7-4.9) 10/13/21 04:13 Absolute Monocytes 0.8 K/uL (0.1-1.3) 10/13/21 04:13 Absolute Eosinophils 0.7 K/uL (0-0.5) H 10/13/21 04:13 Absolute Basophils 0.1 K/uL (0-0.5) 10/13/21 04:13 Sodium 135 mmol/L (136-145) L 10/13/21 04:13 Potassium 5.2 mmol/L (3.5-5.1) H 10/13/21 04:13 Chloride 104 mmol/L (98-107) 10/13/21 04:13 Carbon Dioxide 25 mmol/L (21-32) 10/13/21 04:13 Anion Gap 11.2 mEq/L (5.0-15.0) 10/13/21 04:13 BUN 22 mg/dL (7-18) H 10/13/21 04:13 Creatinine 0.98 mg/dL (0.55-1.3) 10/13/21 04:13 Est GFR (CKD-EPI) 82 ml/min (=/>90) L 10/13/21 04:13 Glucose 94 mg/dL (74-106) 10/13/21 04:13 POC Glucose 133 mg/dL (65-120) H 10/14/21 06:59 Calcium 8.0 mg/dL (8.5-10.1) L 10/13/21 04:13 Magnesium 2.2 mg/dL (1.8-2.4) 10/13/21 04:13 Albumin 2.4 g/dL (3.4-5.0) L 10/13/21 04:13 Prealbumin 12.2 mg/dL (20-40) L 10/13/21 04:13 Urine Color Cancelled 10/05/21 23:58 Urine Clarity Cancelled 10/05/21 23:58 Urine pH Cancelled 10/05/21 23:58 Ur Specific [place] Cancelled 10/05/21 23:58 Glucose (UA)(Auto) Cancelled 10/05/21 23:58 Urine Ketones Cancelled 10/05/21 23:58 Urine Blood Cancelled 10/05/21 23:58 Urine Nitrite Cancelled 10/05/21 23:58 Urine Bilirubin Cancelled 10/05/21 23:58 Urine Urobilinogen Cancelled 10/05/21 23:58 Ur Leukocyte Esterase Cancelled 10/05/21 23:58 Urine RBC Cancelled 10/05/21 23:58 Urine Red Cell Clumps Cancelled 10/05/21 23:58 Urine WBC Cancelled 10/05/21 23:58 Urine WBC Clumps Cancelled 10/05/21 23:58 Ur Squamous Epith Cells Cancelled 10/05/21 23:58 U Non-Squamous Epi Cells Cancelled 10/05/21 23:58 Ur Transition Epith Cell Cancelled 10/05/21 23:58 Ur Renal Epithelial Cell Cancelled 10/05/21 23:58 Calcium Carbonate Cryst Cancelled 10/05/21 23:58 Calcium Oxalate Crystal Cancelled 10/05/21 23:58 Leucine Crystals Cancelled 10/05/21 23:58 Cystine Crystals Cancelled 10/05/21 23:58 Uric Acid Crystals Cancelled 10/05/21 23:58 Triple Phos Crystals Cancelled 10/05/21 23:58 Tyrosine Crystals Cancelled 10/05/21 23:58 Unidentified Crystals Cancelled 10/05/21 23:58 Amorphous Crystals Cancelled 10/05/21 23:58 Urine Bacteria Cancelled 10/05/21 23:58 Hyaline Casts Cancelled 10/05/21 23:58 Granular Casts Cancelled 10/05/21 23:58 Waxy Casts Cancelled 10/05/21 23:58 RBC Casts Cancelled 10/05/21 23:58 WBC Casts Cancelled 10/05/21 23:58 Urine Mucus Cancelled 10/05/21 23:58 Urine Trichomonas Cancelled 10/05/21 23:58 Ur Yeast w Hyphae Cancelled 10/05/21 23:58 Urine Yeast (Budding) Cancelled 10/05/21 23:58 Urine Sperm Cancelled 10/05/21 23:58 Ur Oval Fat Bodies Cancelled 10/05/21 23:58 Urine Total Protein Cancelled 10/05/21 23:58 Urine Ascorbic Acid Cancelled 10/05/21 23:58 Urine Fat Cancelled 10/05/21 23:58 SARS-CoV-2 Rap RNA(RT-PCR) Negative (NEGATIVE) 10/12/21 05:55 Weight: 157 lb 8 oz Within Defined Parameters: Yes Wound Present: No Closed Surgical Incision Present: Yes Negative Pressure Wound Therapy Present: No Physician Update: Labs reviewed and are stable. Doing well with OT now at min assistance grooming, max assist with ADL and transfers. He has much less pain. Ambulating 500' with SBA, WC 250' SBA. SBA with transfers. Functional Improvement: Patient has progressed well w/ therapy, and continues to improve technique and safety awareness. Summary: Patient's care plan and fpc goals have been reviewed and revised as necessary. Please see the Rehabilitation Signature page for all necessary signatures.
[2021-10-14] MEDS: TRAZODONE 50 MG TABLET PO SCH (19:55)
[2021-10-14] MEDS: MELATONIN 3 MG TABLET PO SCH (19:56)
[2021-10-15] MEDS: HYDROCODONE/APAP 10/325 TAB PO PRN ×5 (01:18→19:33)
[2021-10-15] MEDS: carvediloL 25 MG TAB PO SCH ×2 (05:13→17:27)
[2021-10-15] MEDS: LEVOTHYROXINE SOD 0.05 MG TABLET PO SCH (05:14)
[2021-10-15] MEDS: INSULIN -REGULAR HUMAN 50 UNIT/0.5 ML ML SQ SCH ×4 (07:30→19:33)
[2021-10-15 07:49] LABS: Potassium 5.1 mmol/L (3.5-5.1)
[2021-10-15] MEDS: PANTOPRAZOLE 40MG TABLET PO SCH (08:24)
[2021-10-15] MEDS: FE SULF/FA/VIT B COMP & C TAB PO SCH (08:24)
[2021-10-15] MEDS: DULOXETINE 30 MG CAP PO SCH (08:24)
[2021-10-15] MEDS: TAMSULOSIN 0.4 MG SR CAP PO SCH (08:24)
[2021-10-15] MEDS: APIXABAN 2.5 MG TABLET PO SCH ×2 (08:24→19:32)
[2021-10-15] MEDS: DOCUSATE NA 100 MG CAP PO SCH (08:24)
[2021-10-15] MEDS: GLIMEPIRIDE 2 MG TABLET PO SCH (08:24)
[2021-10-15] MEDS: AMIODARONE HCL 200 MG TAB PO SCH (08:24)
[2021-10-15] MEDS: CRANBERRY FRUIT EXTRACT 200 MG CAP PO SCH ×2 (08:24→19:32)
[2021-10-15] MEDS: ALOGLIPTIN BENZOATE 12.5 MG TABLET PO SCH (08:25)
[2021-10-15] MEDS: GABAPENTIN 300 MG CAP PO SCH ×2 (08:25→19:32)
[2021-10-15] MEDS: SENOSIDES 8.6 MG TAB PO SCH (08:25)
[2021-10-15] MEDS: RIVASTIGMINE 4.6 MG/24 HR PATCH TD SCH (08:25)
[2021-10-15] MEDS: METFORMIN HCL 500 MG TAB PO SCH ×2 (08:25→17:27)
[2021-10-15] MEDS: MELATONIN 3 MG TABLET PO SCH (19:33)
[2021-10-15] MEDS: TRAZODONE 50 MG TABLET PO SCH (20:20)
[2021-10-16] MEDS: HYDROCODONE/APAP 10/325 TAB PO PRN ×4 (03:09→20:02)
[2021-10-16] MEDS: LEVOTHYROXINE SOD 0.05 MG TABLET PO SCH (05:10)
[2021-10-16] MEDS: carvediloL 25 MG TAB PO SCH ×2 (05:10→17:11)
[2021-10-16] MEDS: INSULIN -REGULAR HUMAN 50 UNIT/0.5 ML ML SQ SCH ×4 (07:30→20:02)
[2021-10-16] MEDS: DOCUSATE NA 100 MG CAP PO SCH (08:00)
[2021-10-16] MEDS: SENOSIDES 8.6 MG TAB PO SCH (08:00)
[2021-10-16] MEDS: APIXABAN 2.5 MG TABLET PO SCH ×2 (08:01→20:02)
[2021-10-16] MEDS: PANTOPRAZOLE 40MG TABLET PO SCH (08:02)
[2021-10-16] MEDS: AMIODARONE HCL 200 MG TAB PO SCH (08:02)
[2021-10-16] MEDS: GLIMEPIRIDE 2 MG TABLET PO SCH (08:02)
[2021-10-16] MEDS: METFORMIN HCL 500 MG TAB PO SCH ×2 (08:03→17:11)
[2021-10-16] MEDS: TAMSULOSIN 0.4 MG SR CAP PO SCH (08:03)
[2021-10-16] MEDS: ONDANSETRON 4 MG (ODT) TAB PO PRN (08:09)
[2021-10-16] MEDS: GABAPENTIN 300 MG CAP PO SCH ×2 (08:53→20:02)
[2021-10-16] MEDS: DULOXETINE 30 MG CAP PO SCH (08:53)
[2021-10-16] MEDS: FE SULF/FA/VIT B COMP & C TAB PO SCH (08:53)
[2021-10-16] MEDS: CRANBERRY FRUIT EXTRACT 200 MG CAP PO SCH ×2 (08:53→20:02)
[2021-10-16] MEDS: ALOGLIPTIN BENZOATE 12.5 MG TABLET PO SCH (08:55)
[2021-10-16] MEDS: RIVASTIGMINE 4.6 MG/24 HR PATCH TD SCH (08:55)
[2021-10-16] MEDS: HYDROCORTISONE 1 % CREAM 30GM TOP PRN (08:55)
[2021-10-16] MEDS: FORMULATION-R RECTAL 57GM PR PRN ×2 (10:17→20:00)
[2021-10-16] MEDS: MELATONIN 3 MG TABLET PO SCH (20:01)
[2021-10-16] MEDS: TRAZODONE 50 MG TABLET PO SCH (20:02)
[2021-10-17] MEDS: HYDROCODONE/APAP 10/325 TAB PO PRN ×4 (01:30→20:01)
[2021-10-17] MEDS: carvediloL 25 MG TAB PO SCH ×2 (05:16→16:48)
[2021-10-17] MEDS: LEVOTHYROXINE SOD 0.05 MG TABLET PO SCH (05:17)
[2021-10-17] MEDS: PANTOPRAZOLE 40MG TABLET PO SCH (07:12)
[2021-10-17] MEDS: INSULIN -REGULAR HUMAN 50 UNIT/0.5 ML ML SQ SCH ×4 (07:23→20:12)
[2021-10-17] MEDS: ALOGLIPTIN BENZOATE 12.5 MG TABLET PO SCH (07:28)
[2021-10-17] MEDS: CRANBERRY FRUIT EXTRACT 200 MG CAP PO SCH ×2 (07:29→20:02)
[2021-10-17] MEDS: APIXABAN 2.5 MG TABLET PO SCH ×2 (07:29→20:01)
[2021-10-17] MEDS: FE SULF/FA/VIT B COMP & C TAB PO SCH (07:29)
[2021-10-17] MEDS: DULOXETINE 30 MG CAP PO SCH (07:29)
[2021-10-17] MEDS: DOCUSATE NA 100 MG CAP PO SCH (07:29)
[2021-10-17] MEDS: GABAPENTIN 300 MG CAP PO SCH ×2 (07:29→20:01)
[2021-10-17] MEDS: GLIMEPIRIDE 2 MG TABLET PO SCH (07:30)
[2021-10-17] MEDS: TAMSULOSIN 0.4 MG SR CAP PO SCH (07:30)
[2021-10-17] MEDS: AMIODARONE HCL 200 MG TAB PO SCH (07:31)
[2021-10-17] MEDS: METFORMIN HCL 500 MG TAB PO SCH ×2 (07:31→16:48)
[2021-10-17] MEDS: SENOSIDES 8.6 MG TAB PO SCH (07:32)
[2021-10-17] MEDS: RIVASTIGMINE 4.6 MG/24 HR PATCH TD SCH (12:24)
[2021-10-17] MEDS: FORMULATION-R RECTAL 57GM PR PRN (14:24)
[2021-10-17] MEDS: HYDROCORTISONE 1 % CREAM 30GM TOP PRN (15:30)
--- NOTE | 2021-10-17 19:12 | R.PN ---
PROGRESS NOTES ENCOUNTER DATE AND TIME: 10/17/2021 19:10 (CDT) NAME ABHISHEK RODRIGUES DATE OF : 1950 DATE OF ADMISSION: 10/05/2021 20:10 (CDT) Epidural hemorrhage without loss of consciousness, initial encounter (S06.4X0A)CHIEF COMPLAINT: Epidural hemorrhage SUBJECTIVE: Pt denied any Shortness of Breath. Pt denied any depression. WBC 8.5, Hgb 8.8, glucose 75 to 130. Covid-19 is negative. Prealbumin 12.2. Ambulated 500' with standby assistance using a rolling walker. Self-propelled wheelchair 150' with st andby assistance. VITAL SIGNS Temperature: 97.8 F SBP/DBP: 149/73 Pulse: 59 Resp: 16 MEDICATION ALLERGIES: No Known Drug Allergies (NKDA) ENVIRONMENTAL ALLERGIES: - Substance Allergies None Known - Other Allergies None Known NURSING: - Shower allowing shower - Lab Results blood Sugar Check ACHS - Bladder care per protocol - Skin care per protocol PRECAUTIONS: - Fall Precaution Low bed TABS alarm Bed alarm - Weight Bearing Precaution No lifting greater than 10lbs - Incontinence Bowel Incontinence - DVT Risk due to restricted mobility and age - Skin Breakdown Risk due to restricted mobility and age ACTIVITIES OOB only with supervision THERAPIES: - Dietary and Nutrition Adequate Nutrition. Nutritional Education. Nutritional Supplements. - Occupational Therapy Cognitive Retraining. Patient needs Occupational Therapy for a daily minimum of 1.5 hours at least 5 out of 7 days, to improve Activities of Daily Living, including: Eating, Grooming, Bathing, Dressing, Toileting, Toilet Transfers, Community Reintegration, Higher functional activities, Adaptive Equipme nt, Splinting, Household Tasks, and Other activities as determined. Visual Perceptual Training. - Physical Therapy Patient needs Physical Therapy for a daily minimum of 1.5 hours at least 5 out of 7 days, to improve: Mobility, Strengthening, Transfers, Stretching, ROM, Endurance, Ability to manage stairs, Gait, and Balance. PHYSICAL EXAM - Gen Alert and awake Lying in bed No apparent distress Oriented to: person, time, and place - Vital Signs Temperature: 98.0 F SBP/DBP: 123/71 Pulse: 64 Resp: 18 Vital signs stable, afebrile No abnormalities - Eyes No abnormalities - ENMT [place] J cervical collar is in place - Neck [place] J cervical collar is in place - CVS RRR - Chest No abnormalities ASSESSMENT: Pt. is a 71 yo Right-handed male.On 09/30/2021 he was admitted to [facility] with diagnosis Epidural hemorr edy without loss of consciousness, initial encounter (S06.4X0A).His impairment category is Brain Dys function 02 - Closed Injury (03.29).Pre-morbidly, Pt. was independent/mod-I in Locomotion and Self-C are; and he had good Safety Awareness, Balance, Transfers Control, and Endurance.Currently, he has de ficits of Locomotion, Safety Awareness, Balance, Self-Care, Transfers Control, and Endurance.Pt. is n ow referred to [facility] for acute in-patient rehabilitation in order to maxi luis fernando patient's functional independence in activities of daily living, strength, ROM, and mobility.- R ehab Goal Patient has realistic goal of being discharged at assistance level 6-Amalia to reside at Home with Pt self. MDM/PLAN: - Physical Therapy Gait dysfunction - to improve, our physical therapists will perform initial evaluation of pt's statu s upon admission and devise an individualized program for Gait Training, and Wheel Chair mobility Inability to transfer - to improve, our physical therapists will perform initial evaluation of pt's status upon admission and devise an individualized program for Bed mobility Need for home safety evaluation - to improve, our physical therapists will perform initial evaluatio n of pt's status upon admission and devise an individualized program for Home Evaluation Need in caregiver upon discharge - to improve, our physical therapists will perform initial evaluati on of pt's status upon admission and devise an individualized program for Caregiver Training New precaution - to improve, our physical therapists will perform initial evaluation of pt's status upon admission and devise an individualized program for Patient precaution education Poor balance - to improve, our physical therapists will perform initial evaluation of pt's status up on admission and devise an individualized program for Balance Training Poor endurance - to improve, our physical therapists will perform initial evaluation of pt's status upon admission and devise an individualized program for Endurance Training Weakness - to improve, our physical therapists will perform initial evaluation of pt's status upon a dmission and devise an individualized program for Aquatic Therapy, Neuromuscular Reeducation, and Str engthening Achieving independence - to improve, our physical therapists will perform initial evaluation of pt's status upon admission and devise an individualized program for Community Reintegration Activities - Occupational Therapy ADL deficits - to improve, our occupation therapists will perform initial evaluation of pt's status upon admission and devise an individualized program for Bathing, Bed mobility, Community Reintegratio n, Cooking, Dressing, Eating, Fine Motor Skills, Grooming, Homemaking, Kitchen Mobility, Laundry, Pat ient Education, Safety Awareness, Splinting - Positioning, Transfers(Toilet, Tub, Shower), and Wheel Chair Management Need for acute care surgeon - to improve, our occupation therapists will perform initial evaluation of pt's status upon admission and devise an individualized program for Caregiver Training Weakness - to improve, our occupation therapists will perform initial evaluation of pt's status upon admission and devise an individualized program for Aquatic Therapy, Balance, Endurance, UE ROM, and UE strengthening - Other See attached MAR (Medication Administration Record) - Diet Type Continue Regular - Diet - Liquid Texture Continue Regular - Tube Feed Continue N/A - Incontinence Bowel Incontinence - Lab Results blood Sugar Check ACHS - Bladder care per protocol - DVT Risk due to restricted mobility and age - Skin Breakdown Risk due to restricted mobility and age - Weight Bearing Precaution No lifting greater than 10lbs - Fall Precaution Low bed 1 to 1 supervision TABS alarm Bed alarm - Skin care per protocol - Diet - Solid Texture Continue Regular - Shower allowing shower FUNCTIONAL STATUS: UPDATED AT WEEKLY TEAM CONFERENCE - Bladder Same accident frequency: 7-Ind - No accidents in the past 7 days - Bowel Same accident frequency: 7-Ind - No accidents in the past 7 days - Walking Same score based on distance walked: 0(N/A) - Wheelchair Same score based on distance traveled: 0(N/A) FUNCTIONAL STATUS: - Self-Care A. Eating Amalia B. Grooming Amalia C. Bathing modA D. Dressing - Upper Melony E. Dressing - Lower modA F. Toileting sup - Sphincter Control G. Bladder control Amalia H. Bowel control Amalia - Transfers Control I. Bed/Chair/Wheelchair Melony J. Toilet sup K. Tub/Shower modA - Locomotion L. Walk/Wheelchair (B) Melony M. Stairs modA - Communication N. Comprehension (B) sup O. Expression (B) sup - Social Cognition P. Social Interaction Amalia Q. Problem Solving sup R. Memory sup - Endurance Fair - Balance Fair - Safety Awareness Fair QI SCORES: - Self-Care A. Eating 04-Supervision or touching assistance B. Oral hygiene 04-Supervision or touching assistance C. Toileting hygiene 02-Substantial/maximal assistance E. Shower/bathe self 88-Not attempted due to medical condition or safety concerns F. Upper body dressing 04-Supervision or touching assistance G. Lower body dressing 02-Substantial/maximal assistance H. Putting on/taking off footwear 02-Substantial/maximal assistance - Mobility A. Roll left and right 03-Partial/moderate assistance B. Sit to lying 03-Partial/moderate assistance C. Lying to sitting on side of bed 03-Partial/moderate assistance D. Sit to stand 03-Partial/moderate assistance E. Chair/[id number] transfer 07-Patient refused F. Toilet transfer 07-Patient refused G. Car transfer 88-Not attempted due to medical condition or safety concerns I. Walk 10 feet 88-Not attempted due to medical condition or safety concerns J. Walk 50 feet with two turns 88-Not attempted due to medical condition or safety concerns K. Walk 150 feet 88-Not attempted due to medical condition or safety concerns L. Walking 10 feet on uneven surfaces 88-Not attempted due to medical condition or safety concerns M. 1 step (curb) 88-Not attempted due to medical condition or safety concerns N. 4 steps 88-Not attempted due to medical condition or safety concerns O. 12 steps 88-Not attempted due to medical condition or safety concerns P. Picking up object 88-Not attempted due to medical condition or safety concerns R. Wheel 50 feet with two turns 09-Not applicable S. Wheel 150 feet 09-Not applicable - Bladder and Bowel Bladder continence 9-Not applicable Bowel continence 1-Occasionally incontinent - Endurance Fair - Balance Poor - Safety Awareness Poor CURRENT FUNC. DEFICITS: Self-Care, Mobility, Endurance, Balance, and Safety Awareness SIGNATURE PANEL: (CDT)
[2021-10-17] MEDS: MELATONIN 3 MG TABLET PO SCH (20:01)
[2021-10-17] MEDS: methocarbamoL 750 MG TAB PO PRN (20:01)
[2021-10-17] MEDS: TRAZODONE 50 MG TABLET PO SCH (20:02)
[2021-10-18] MEDS: HYDROCODONE/APAP 10/325 TAB PO PRN ×4 (05:01→20:00)
[2021-10-18] MEDS: carvediloL 25 MG TAB PO SCH ×2 (05:34→16:52)
[2021-10-18] MEDS: LEVOTHYROXINE SOD 0.05 MG TABLET PO SCH (05:34)
[2021-10-18 05:50] LABS: Absolute Lymphocytes (CBC) 2.9 K/uL (0.7-4.9); Hematocrit 26.3 % (39.6-49.0); MCV 78.2 fL (80-100); RBC Red Blood Cell Count 3.36 M/uL (4.33-5.43)
[2021-10-18 06:44] LABS: Albumin 2.6 g/dL (3.4-5.0); Magnesium 2.2 mg/dL (1.8-2.4); Potassium 4.9 mmol/L (3.5-5.1)
[2021-10-18] MEDS: PANTOPRAZOLE 40MG TABLET PO SCH (06:58)
[2021-10-18] MEDS: ONDANSETRON 4 MG (ODT) TAB PO PRN (06:58)
[2021-10-18] MEDS: INSULIN -REGULAR HUMAN 50 UNIT/0.5 ML ML SQ SCH ×4 (07:11→20:05)
[2021-10-18] MEDS: SENOSIDES 8.6 MG TAB PO SCH ×2 (08:00→16:52)
[2021-10-18] MEDS: GLIMEPIRIDE 2 MG TABLET PO SCH (08:00)
[2021-10-18] MEDS: AMIODARONE HCL 200 MG TAB PO SCH (08:00)
[2021-10-18] MEDS: DOCUSATE NA 100 MG CAP PO SCH ×2 (08:00→16:52)
[2021-10-18] MEDS: APIXABAN 2.5 MG TABLET PO SCH ×2 (08:01→20:00)
[2021-10-18] MEDS: METFORMIN HCL 500 MG TAB PO SCH ×2 (08:01→16:52)
[2021-10-18] MEDS: TAMSULOSIN 0.4 MG SR CAP PO SCH (08:02)
[2021-10-18] MEDS: ALOGLIPTIN BENZOATE 12.5 MG TABLET PO SCH (08:02)
[2021-10-18] MEDS: FE SULF/FA/VIT B COMP & C TAB PO SCH (08:02)
[2021-10-18] MEDS: RIVASTIGMINE 4.6 MG/24 HR PATCH TD SCH (08:02)
[2021-10-18] MEDS: DULOXETINE 30 MG CAP PO SCH (08:02)
[2021-10-18] MEDS: CRANBERRY FRUIT EXTRACT 200 MG CAP PO SCH ×2 (08:02→19:52)
[2021-10-18] MEDS: GABAPENTIN 300 MG CAP PO SCH ×2 (08:03→20:00)
[2021-10-18] MEDS: HYDROCORTISONE 1 % CREAM 30GM TOP PRN (15:47)
--- NOTE | 2021-10-18 17:58 | R.PN ---
PROGRESS NOTES ENCOUNTER DATE AND TIME: 10/18/2021 17:54 (CDT) NAME ABHISHEK RODRIGUES DATE OF : 1950 DATE OF ADMISSION: 10/05/2021 20:10 (CDT) Epidural hemorrhage without loss of consciousness, initial encounter (S06.4X0A)CHIEF COMPLAINT: Epidural hemorrhage SUBJECTIVE: Pt denied any Shortness of Breath. Pt denied any depression. WBC 9.2 Hgb 8.6, glucose 80 to 148, Na 135. Covid-19 is negative. Prealbumin 12.2. Ambulated 500' with standby assistance using a rolling walker. Self-propelled wheelchair 250' with st andby assistance. VITAL SIGNS Temperature: 97.8 F SBP/DBP: 149/73 Pulse: 70 Resp: 16 MEDICATION ALLERGIES: No Known Drug Allergies (NKDA) ENVIRONMENTAL ALLERGIES: - Substance Allergies None Known - Other Allergies None Known NURSING: - Shower allowing shower - Lab Results blood Sugar Check ACHS - Bladder care per protocol - Skin care per protocol PRECAUTIONS: - Fall Precaution Low bed TABS alarm Bed alarm - Weight Bearing Precaution No lifting greater than 10lbs - Incontinence Bowel Incontinence - DVT Risk due to restricted mobility and age - Skin Breakdown Risk due to restricted mobility and age ACTIVITIES OOB only with supervision THERAPIES: - Dietary and Nutrition Adequate Nutrition. Nutritional Education. Nutritional Supplements. - Occupational Therapy Cognitive Retraining. Patient needs Occupational Therapy for a daily minimum of 1.5 hours at least 5 out of 7 days, to improve Activities of Daily Living, including: Eating, Grooming, Bathing, Dressing, Toileting, Toilet Transfers, Community Reintegration, Higher functional activities, Adaptive Equipme nt, Splinting, Household Tasks, and Other activities as determined. Visual Perceptual Training. - Physical Therapy Patient needs Physical Therapy for a daily minimum of 1.5 hours at least 5 out of 7 days, to improve: Mobility, Strengthening, Transfers, Stretching, ROM, Endurance, Ability to manage stairs, Gait, and Balance. PHYSICAL EXAM - Gen Alert and awake Lying in bed No apparent distress Oriented to: person, time, and place - Vital Signs Temperature: 98.0 F SBP/DBP: 123/71 Pulse: 64 Resp: 18 Vital signs stable, afebrile No abnormalities - Eyes No abnormalities - ENMT [place] cervical collar is in place - Neck [place] cervical collar is in place - CVS RRR - Chest No abnormalities ASSESSMENT: Pt. is a 71 yo Right-handed male.On 09/30/2021 he was admitted to [facility] with diagnosis Epidural hemorr edy without loss of consciousness, initial encounter (S06.4X0A).His impairment category is Brain Dys function 02 - Closed Injury (03.29).Pre-morbidly, Pt. was independent/mod-I in Locomotion and Self-C are; and he had good Safety Awareness, Balance, Transfers Control, and Endurance.Currently, he has de ficits of Locomotion, Safety Awareness, Balance, Self-Care, Transfers Control, and Endurance.Pt. is n ow referred to [facility] for acute in-patient rehabilitation in order to maxi luis fernando patient's functional independence in activities of daily living, strength, ROM, and mobility.- R ehab Goal Patient has realistic goal of being discharged at assistance level 6-Amalia to reside at Home with Pt self. MDM/PLAN: - Physical Therapy Gait dysfunction - to improve, our physical therapists will perform initial evaluation of pt's statu s upon admission and devise an individualized program for Gait Training, and Wheel Chair mobility Inability to transfer - to improve, our physical therapists will perform initial evaluation of pt's status upon admission and devise an individualized program for Bed mobility Need for home safety evaluation - to improve, our physical therapists will perform initial evaluatio n of pt's status upon admission and devise an individualized program for Home Evaluation Need in caregiver upon discharge - to improve, our physical therapists will perform initial evaluati on of pt's status upon admission and devise an individualized program for Caregiver Training New precaution - to improve, our physical therapists will perform initial evaluation of pt's status upon admission and devise an individualized program for Patient precaution education Poor balance - to improve, our physical therapists will perform initial evaluation of pt's status up on admission and devise an individualized program for Balance Training Poor endurance - to improve, our physical therapists will perform initial evaluation of pt's status upon admission and devise an individualized program for Endurance Training Weakness - to improve, our physical therapists will perform initial evaluation of pt's status upon a dmission and devise an individualized program for Aquatic Therapy, Neuromuscular Reeducation, and Str engthening Achieving independence - to improve, our physical therapists will perform initial evaluation of pt's status upon admission and devise an individualized program for Community Reintegration Activities - Occupational Therapy ADL deficits - to improve, our occupation therapists will perform initial evaluation of pt's status upon admission and devise an individualized program for Bathing, Bed mobility, Community Reintegratio n, Cooking, Dressing, Eating, Fine Motor Skills, Grooming, Homemaking, Kitchen Mobility, Laundry, Pat ient Education, Safety Awareness, Splinting - Positioning, Transfers(Toilet, Tub, Shower), and Wheel Chair Management Need for clinical care manager - to improve, our occupation therapists will perform initial evaluation of pt's status upon admission and devise an individualized program for Caregiver Training Weakness - to improve, our occupation therapists will perform initial evaluation of pt's status upon admission and devise an individualized program for Aquatic Therapy, Balance, Endurance, UE ROM, and UE strengthening - Other See attached MAR (Medication Administration Record) - Diet Type Continue Regular - Diet - Liquid Texture Continue Regular - Tube Feed Continue N/A - Incontinence Bowel Incontinence - Lab Results blood Sugar Check ACHS - Bladder care per protocol - DVT Risk due to restricted mobility and age - Skin Breakdown Risk due to restricted mobility and age - Weight Bearing Precaution No lifting greater than 10lbs - Fall Precaution Low bed 1 to 1 supervision TABS alarm Bed alarm - Skin care per protocol - Diet - Solid Texture Continue Regular - Shower allowing shower FUNCTIONAL STATUS: UPDATED AT WEEKLY TEAM CONFERENCE - Bladder Same accident frequency: 7-Ind - No accidents in the past 7 days - Bowel Same accident frequency: 7-Ind - No accidents in the past 7 days - Walking Same score based on distance walked: 0(N/A) - Wheelchair Same score based on distance traveled: 0(N/A) FUNCTIONAL STATUS: - Self-Care A. Eating Amalia B. Grooming Amalia C. Bathing modA D. Dressing - Upper Melony E. Dressing - Lower modA F. Toileting sup - Sphincter Control G. Bladder control Amalia H. Bowel control Amalia - Transfers Control I. Bed/Chair/Wheelchair Melony J. Toilet sup K. Tub/Shower modA - Locomotion L. Walk/Wheelchair (B) Melony M. Stairs modA - Communication N. Comprehension (B) sup O. Expression (B) sup - Social Cognition P. Social Interaction Amalia Q. Problem Solving sup R. Memory sup - Endurance Fair - Balance Fair - Safety Awareness Fair QI SCORES: - Self-Care A. Eating 04-Supervision or touching assistance B. Oral hygiene 04-Supervision or touching assistance C. Toileting hygiene 02-Substantial/maximal assistance E. Shower/bathe self 88-Not attempted due to medical condition or safety concerns F. Upper body dressing 04-Supervision or touching assistance G. Lower body dressing 02-Substantial/maximal assistance H. Putting on/taking off footwear 02-Substantial/maximal assistance - Mobility A. Roll left and right 03-Partial/moderate assistance B. Sit to lying 03-Partial/moderate assistance C. Lying to sitting on side of bed 03-Partial/moderate assistance D. Sit to stand 03-Partial/moderate assistance E. Chair/[id number] transfer 07-Patient refused F. Toilet transfer 07-Patient refused G. Car transfer 88-Not attempted due to medical condition or safety concerns I. Walk 10 feet 88-Not attempted due to medical condition or safety concerns J. Walk 50 feet with two turns 88-Not attempted due to medical condition or safety concerns K. Walk 150 feet 88-Not attempted due to medical condition or safety concerns L. Walking 10 feet on uneven surfaces 88-Not attempted due to medical condition or safety concerns M. 1 step (curb) 88-Not attempted due to medical condition or safety concerns N. 4 steps 88-Not attempted due to medical condition or safety concerns O. 12 steps 88-Not attempted due to medical condition or safety concerns P. Picking up object 88-Not attempted due to medical condition or safety concerns R. Wheel 50 feet with two turns 09-Not applicable S. Wheel 150 feet 09-Not applicable - Bladder and Bowel Bladder continence 9-Not applicable Bowel continence 1-Occasionally incontinent - Endurance Fair - Balance Poor - Safety Awareness Poor CURRENT FUNC. DEFICITS: Self-Care, Mobility, Endurance, Balance, and Safety Awareness SIGNATURE PANEL: (CDT)
[2021-10-18 18:22] LABS: Prealbumin 15.1 mg/dL (20-40)
[2021-10-18] MEDS: MELATONIN 3 MG TABLET PO SCH (19:53)
[2021-10-18] MEDS: methocarbamoL 750 MG TAB PO PRN (20:00)
[2021-10-18] MEDS: TRAZODONE 50 MG TABLET PO SCH (20:00)
[2021-10-19] MEDS: HYDROCODONE/APAP 10/325 TAB PO PRN ×3 (02:27→11:03)
[2021-10-19] MEDS: carvediloL 25 MG TAB PO SCH ×2 (05:25→17:12)
[2021-10-19] MEDS: LEVOTHYROXINE SOD 0.05 MG TABLET PO SCH (05:25)
[2021-10-19] MEDS: ONDANSETRON 4 MG (ODT) TAB PO PRN (06:49)
[2021-10-19] MEDS: PANTOPRAZOLE 40MG TABLET PO SCH (06:50)
[2021-10-19] MEDS: INSULIN -REGULAR HUMAN 50 UNIT/0.5 ML ML SQ SCH ×4 (07:30→20:37)
[2021-10-19] MEDS: AMIODARONE HCL 200 MG TAB PO SCH (08:49)
[2021-10-19] MEDS: DOCUSATE NA 100 MG CAP PO SCH (08:49)
[2021-10-19] MEDS: METFORMIN HCL 500 MG TAB PO SCH ×2 (08:50→17:12)
[2021-10-19] MEDS: APIXABAN 2.5 MG TABLET PO SCH ×2 (08:50→20:37)
[2021-10-19] MEDS: GABAPENTIN 300 MG CAP PO SCH ×2 (08:50→20:36)
[2021-10-19] MEDS: DULOXETINE 30 MG CAP PO SCH (08:51)
[2021-10-19] MEDS: TAMSULOSIN 0.4 MG SR CAP PO SCH (08:51)
[2021-10-19] MEDS: FORMULATION-R RECTAL 57GM PR PRN (08:51)
[2021-10-19] MEDS: SENOSIDES 8.6 MG TAB PO SCH (08:51)
[2021-10-19] MEDS: FE SULF/FA/VIT B COMP & C TAB PO SCH (08:51)
[2021-10-19] MEDS: CRANBERRY FRUIT EXTRACT 200 MG CAP PO SCH ×2 (08:51→20:36)
[2021-10-19] MEDS: ALOGLIPTIN BENZOATE 12.5 MG TABLET PO SCH (08:53)
[2021-10-19] MEDS: RIVASTIGMINE 4.6 MG/24 HR PATCH TD SCH (08:53)
[2021-10-19] MEDS: GLIMEPIRIDE 2 MG TABLET PO SCH (08:54)
--- NOTE | 2021-10-19 10:01 | P.RH.PN ---
Estimated Length of Stay: 16 Expected Discharge Date: 10/21/21 Discharge Disposition Plan: Home Family Support: Yes Penitentiary Goal: Mobility, Transfers, Self Care Vital Signs: Last Vital Signs Temp 96.9 F 10/19/21 07:12 Pulse 58 10/19/21 07:12 Resp 18 10/19/21 07:49 BP 166/91 H 10/19/21 07:12 Pulse Ox 98 10/19/21 07:49 Laboratory: Laboratory Last Values WBC 9.20 K/uL (4.3-10.9) 10/18/21 05:16 RBC 3.36 M/uL (4.33-5.43) L 10/18/21 05:16 Hgb 8.6 g/dL (13.6-17.9) L 10/18/21 05:16 Hct 26.3 % (39.6-49.0) L 10/18/21 05:16 MCV 78.2 fL (80-100) L 10/18/21 05:16 MCH 25.6 pg (27.0-35.0) L 10/18/21 05:16 MCHC 32.7 g/dL (32.0-36.0) 10/18/21 05:16 RDW 17.4 % (12.1-15.2) H 10/18/21 05:16 Plt Count 390 K/uL (152-406) 10/18/21 05:16 MPV 6.0 fL (7.6-11.3) L 10/18/21 05:16 Neutrophils % 50.3 % (41.7-73.7) 10/18/21 05:16 Lymphocytes % 31.0 % (15.3-44.8) 10/18/21 05:16 Monocytes % 9.5 % (3.3-12.3) 10/18/21 05:16 Eosinophils % 8.2 % (0-4.4) H 10/18/21 05:16 Basophils % 1.0 % (0-1.3) 10/18/21 05:16 Absolute Neutrophils 4.6 K/uL (1.8-8.0) 10/18/21 05:16 Absolute Lymphocytes 2.9 K/uL (0.7-4.9) 10/18/21 05:16 Absolute Monocytes 0.9 K/uL (0.1-1.3) 10/18/21 05:16 Absolute Eosinophils 0.8 K/uL (0-0.5) H 10/18/21 05:16 Absolute Basophils 0.1 K/uL (0-0.5) 10/18/21 05:16 Sodium 135 mmol/L (136-145) L 10/18/21 05:16 Potassium 4.9 mmol/L (3.5-5.1) 10/18/21 05:16 Chloride 103 mmol/L (98-107) 10/18/21 05:16 Carbon Dioxide 28 mmol/L (21-32) 10/18/21 05:16 Anion Gap 8.9 mEq/L (5.0-15.0) 10/18/21 05:16 BUN 31 mg/dL (7-18) H 10/18/21 05:16 Creatinine 1.32 mg/dL (0.55-1.3) H 10/18/21 05:16 Est GFR (CKD-EPI) 58 ml/min (=/>90) L 10/18/21 05:16 Glucose 77 mg/dL (74-106) 10/18/21 05:16 POC Glucose 98 mg/dL (65-120) 10/19/21 07:40 Calcium 8.2 mg/dL (8.5-10.1) L 10/18/21 05:16 Magnesium 2.2 mg/dL (1.8-2.4) 10/18/21 05:16 Albumin 2.6 g/dL (3.4-5.0) L 10/18/21 05:16 Prealbumin 15.1 mg/dL (20-40) L 10/18/21 05:16 Urine Color Cancelled 10/05/21 23:58 Urine Clarity Cancelled 10/05/21 23:58 Urine pH Cancelled 10/05/21 23:58 Ur Specific [place] Cancelled 10/05/21 23:58 Glucose (UA)(Auto) Cancelled 10/05/21 23:58 Urine Ketones Cancelled 10/05/21 23:58 Urine Blood Cancelled 10/05/21 23:58 Urine Nitrite Cancelled 10/05/21 23:58 Urine Bilirubin Cancelled 10/05/21 23:58 Urine Urobilinogen Cancelled 10/05/21 23:58 Ur Leukocyte Esterase Cancelled 10/05/21 23:58 Urine RBC Cancelled 10/05/21 23:58 Urine Red Cell Clumps Cancelled 10/05/21 23:58 Urine WBC Cancelled 10/05/21 23:58 Urine WBC Clumps Cancelled 10/05/21 23:58 Ur Squamous Epith Cells Cancelled 10/05/21 23:58 U Non-Squamous Epi Cells Cancelled 10/05/21 23:58 Ur Transition Epith Cell Cancelled 10/05/21 23:58 Ur Renal Epithelial Cell Cancelled 10/05/21 23:58 Calcium Carbonate Cryst Cancelled 10/05/21 23:58 Calcium Oxalate Crystal Cancelled 10/05/21 23:58 Leucine Crystals Cancelled 10/05/21 23:58 Cystine Crystals Cancelled 10/05/21 23:58 Uric Acid Crystals Cancelled 10/05/21 23:58 Triple Phos Crystals Cancelled 10/05/21 23:58 Tyrosine Crystals Cancelled 10/05/21 23:58 Unidentified Crystals Cancelled 10/05/21 23:58 Amorphous Crystals Cancelled 10/05/21 23:58 Urine Bacteria Cancelled 10/05/21 23:58 Hyaline Casts Cancelled 10/05/21 23:58 Granular Casts Cancelled 10/05/21 23:58 Waxy Casts Cancelled 10/05/21 23:58 RBC Casts Cancelled 10/05/21 23:58 WBC Casts Cancelled 10/05/21 23:58 Urine Mucus Cancelled 10/05/21 23:58 Urine Trichomonas Cancelled 10/05/21 23:58 Ur Yeast w Hyphae Cancelled 10/05/21 23:58 Urine Yeast (Budding) Cancelled 10/05/21 23:58 Urine Sperm Cancelled 10/05/21 23:58 Ur Oval Fat Bodies Cancelled 10/05/21 23:58 Urine Total Protein Cancelled 10/05/21 23:58 Urine Ascorbic Acid Cancelled 10/05/21 23:58 Urine Fat Cancelled 10/05/21 23:58 SARS-CoV-2 Rap RNA(RT-PCR) Negative (NEGATIVE) 10/12/21 05:55 Weight: 157 lb 8 oz Within Defined Parameters: Yes Wound Present: No Closed Surgical Incision Present: Yes Negative Pressure Wound Therapy Present: No Physician Update: His labs were reviewed. He will have to be with his who is disable is family may not help. He is making fair overall progress. Up and down 5 steps. ambulating with the rollator with supervision. At supervision with transfers, and grooming. Max assistance with upper body and lower body dressing. Functional Improvement: Patient has progressed well w/ therapy, and continues to improve technique and safety awareness. 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 Please see the Rehabilitation Signature page for all necessary signatures.
[2021-10-19] MEDS: HYDROCODONE/APAP 5/325 MG TAB PO PRN ×2 (15:56→20:36)
[2021-10-19] MEDS: MELATONIN 3 MG TABLET PO SCH (20:36)
[2021-10-19] MEDS: TRAZODONE 50 MG TABLET PO SCH (20:37)
[2021-10-20] MEDS: HYDROCODONE/APAP 5/325 MG TAB PO PRN ×5 (00:15→20:50)
[2021-10-20] MEDS: carvediloL 25 MG TAB PO SCH ×2 (05:05→16:59)
[2021-10-20] MEDS: LEVOTHYROXINE SOD 0.05 MG TABLET PO SCH (05:05)
[2021-10-20] MEDS: PANTOPRAZOLE 40MG TABLET PO SCH (06:59)
[2021-10-20] MEDS: INSULIN -REGULAR HUMAN 50 UNIT/0.5 ML ML SQ SCH ×4 (07:11→20:14)
[2021-10-20] MEDS: SENOSIDES 8.6 MG TAB PO SCH (07:40)
[2021-10-20] MEDS: DOCUSATE NA 100 MG CAP PO SCH (07:40)
[2021-10-20] MEDS: ALOGLIPTIN BENZOATE 12.5 MG TABLET PO SCH (07:40)
[2021-10-20] MEDS: DRISDOL (VITAMIN D=ERGOCALCIFEROL) 50000 UNIT CAP PO SCH (07:40)
[2021-10-20] MEDS: CRANBERRY FRUIT EXTRACT 200 MG CAP PO SCH ×2 (07:41→20:20)
[2021-10-20] MEDS: METFORMIN HCL 500 MG TAB PO SCH ×2 (07:41→16:58)
[2021-10-20] MEDS: FE SULF/FA/VIT B COMP & C TAB PO SCH (07:41)
[2021-10-20] MEDS: GLIMEPIRIDE 2 MG TABLET PO SCH (07:41)
[2021-10-20] MEDS: TAMSULOSIN 0.4 MG SR CAP PO SCH (07:41)
[2021-10-20] MEDS: APIXABAN 2.5 MG TABLET PO SCH ×2 (07:42→20:21)
[2021-10-20] MEDS: DULOXETINE 30 MG CAP PO SCH (07:42)
[2021-10-20] MEDS: AMIODARONE HCL 200 MG TAB PO SCH (07:42)
[2021-10-20] MEDS: GABAPENTIN 300 MG CAP PO SCH ×2 (07:48→20:21)
[2021-10-20] MEDS: RIVASTIGMINE 4.6 MG/24 HR PATCH TD SCH (12:02)
[2021-10-20] MEDS: FORMULATION-R RECTAL 57GM PR PRN (14:40)
[2021-10-20] MEDS: HYDROCORTISONE 1 % CREAM 30GM TOP PRN (14:40)
[2021-10-20] MEDS: MELATONIN 3 MG TABLET PO SCH (20:21)
[2021-10-20] MEDS: TRAZODONE 50 MG TABLET PO SCH (20:21)
[2021-10-21] MEDS: HYDROCODONE/APAP 5/325 MG TAB PO PRN ×6 (03:54→23:47)
[2021-10-21] MEDS: carvediloL 25 MG TAB PO SCH ×2 (05:04→17:19)
[2021-10-21] MEDS: LEVOTHYROXINE SOD 0.05 MG TABLET PO SCH (05:05)
[2021-10-21] MEDS: INSULIN -REGULAR HUMAN 50 UNIT/0.5 ML ML SQ SCH ×4 (07:30→19:47)
[2021-10-21] MEDS: SENOSIDES 8.6 MG TAB PO SCH (07:31)
[2021-10-21] MEDS: AMIODARONE HCL 200 MG TAB PO SCH (07:31)
[2021-10-21] MEDS: PANTOPRAZOLE 40MG TABLET PO SCH (07:31)
[2021-10-21] MEDS: DULOXETINE 30 MG CAP PO SCH (07:31)
[2021-10-21] MEDS: TAMSULOSIN 0.4 MG SR CAP PO SCH (07:32)
[2021-10-21] MEDS: FE SULF/FA/VIT B COMP & C TAB PO SCH (07:32)
[2021-10-21] MEDS: CRANBERRY FRUIT EXTRACT 200 MG CAP PO SCH ×2 (07:32→19:45)
[2021-10-21] MEDS: GLIMEPIRIDE 2 MG TABLET PO SCH (07:32)
[2021-10-21] MEDS: APIXABAN 2.5 MG TABLET PO SCH ×2 (07:32→19:45)
[2021-10-21] MEDS: DOCUSATE NA 100 MG CAP PO SCH (07:32)
[2021-10-21] MEDS: METFORMIN HCL 500 MG TAB PO SCH ×2 (07:33→17:19)
[2021-10-21] MEDS: GABAPENTIN 300 MG CAP PO SCH ×2 (07:33→19:45)
[2021-10-21] MEDS: ALOGLIPTIN BENZOATE 12.5 MG TABLET PO SCH (07:33)
[2021-10-21] MEDS: RIVASTIGMINE 4.6 MG/24 HR PATCH TD SCH (08:47)
[2021-10-21] MEDS: methocarbamoL 750 MG TAB PO PRN (18:29)
[2021-10-21] MEDS: TRAZODONE 50 MG TABLET PO SCH (19:46)
[2021-10-21] MEDS: MELATONIN 3 MG TABLET PO SCH (19:46)
[2021-10-22] MEDS: HYDROCODONE/APAP 5/325 MG TAB PO PRN ×5 (04:13→20:49)
[2021-10-22] MEDS: carvediloL 25 MG TAB PO SCH ×2 (05:16→16:51)
[2021-10-22] MEDS: LEVOTHYROXINE SOD 0.05 MG TABLET PO SCH (05:17)
[2021-10-22] MEDS: ONDANSETRON 4 MG (ODT) TAB PO PRN (07:20)
[2021-10-22] MEDS: GABAPENTIN 300 MG CAP PO SCH ×2 (07:20→20:48)
[2021-10-22] MEDS: PANTOPRAZOLE 40MG TABLET PO SCH (07:20)
[2021-10-22] MEDS: APIXABAN 2.5 MG TABLET PO SCH ×2 (07:21→20:48)
[2021-10-22] MEDS: INSULIN -REGULAR HUMAN 50 UNIT/0.5 ML ML SQ SCH ×4 (07:22→19:17)
[2021-10-22] MEDS: METFORMIN HCL 500 MG TAB PO SCH ×2 (07:49→16:51)
[2021-10-22] MEDS: ALOGLIPTIN BENZOATE 12.5 MG TABLET PO SCH (07:49)
[2021-10-22] MEDS: DOCUSATE NA 100 MG CAP PO SCH (07:49)
[2021-10-22] MEDS: RIVASTIGMINE 4.6 MG/24 HR PATCH TD SCH (07:49)
[2021-10-22] MEDS: DULOXETINE 30 MG CAP PO SCH (07:50)
[2021-10-22] MEDS: CRANBERRY FRUIT EXTRACT 200 MG CAP PO SCH ×2 (07:50→20:48)
[2021-10-22] MEDS: SENOSIDES 8.6 MG TAB PO SCH (07:50)
[2021-10-22] MEDS: FE SULF/FA/VIT B COMP & C TAB PO SCH (07:50)
[2021-10-22] MEDS: TAMSULOSIN 0.4 MG SR CAP PO SCH (07:50)
[2021-10-22] MEDS: GLIMEPIRIDE 2 MG TABLET PO SCH (07:51)
[2021-10-22] MEDS: AMIODARONE HCL 200 MG TAB PO SCH (07:51)
[2021-10-22] MEDS: TRAZODONE 50 MG TABLET PO SCH (20:48)
[2021-10-22] MEDS: MELATONIN 3 MG TABLET PO SCH (20:48)
[2021-10-22] MEDS: methocarbamoL 750 MG TAB PO PRN (20:49)
[2021-10-23] MEDS: HYDROCODONE/APAP 5/325 MG TAB PO PRN ×5 (02:26→20:12)
[2021-10-23] MEDS: carvediloL 25 MG TAB PO SCH ×2 (05:30→17:15)
[2021-10-23] MEDS: LEVOTHYROXINE SOD 0.05 MG TABLET PO SCH (05:30)
[2021-10-23] MEDS: PANTOPRAZOLE 40MG TABLET PO SCH (06:30)
[2021-10-23] MEDS: INSULIN -REGULAR HUMAN 50 UNIT/0.5 ML ML SQ SCH ×4 (07:30→20:08)
[2021-10-23] MEDS: RIVASTIGMINE 4.6 MG/24 HR PATCH TD SCH (07:55)
[2021-10-23] MEDS: SENOSIDES 8.6 MG TAB PO SCH (07:56)
[2021-10-23] MEDS: GLIMEPIRIDE 2 MG TABLET PO SCH (07:56)
[2021-10-23] MEDS: METFORMIN HCL 500 MG TAB PO SCH ×2 (07:56→17:15)
[2021-10-23] MEDS: DOCUSATE NA 100 MG CAP PO SCH (07:56)
[2021-10-23] MEDS: DULOXETINE 30 MG CAP PO SCH (07:56)
[2021-10-23] MEDS: ALOGLIPTIN BENZOATE 12.5 MG TABLET PO SCH (07:56)
[2021-10-23] MEDS: CRANBERRY FRUIT EXTRACT 200 MG CAP PO SCH ×2 (07:57→20:06)
[2021-10-23] MEDS: TAMSULOSIN 0.4 MG SR CAP PO SCH (07:57)
[2021-10-23] MEDS: GABAPENTIN 300 MG CAP PO SCH ×2 (07:57→20:07)
[2021-10-23] MEDS: FE SULF/FA/VIT B COMP & C TAB PO SCH (07:57)
[2021-10-23] MEDS: APIXABAN 2.5 MG TABLET PO SCH ×2 (07:57→20:08)
[2021-10-23] MEDS: AMIODARONE HCL 200 MG TAB PO SCH (07:57)
[2021-10-23] MEDS: methocarbamoL 750 MG TAB PO PRN ×2 (16:10→21:40)
[2021-10-23] MEDS: MELATONIN 3 MG TABLET PO SCH (20:06)
[2021-10-23] MEDS: TRAZODONE 50 MG TABLET PO SCH (20:07)
[2021-10-23] MEDS: POLYETHYL GLY 3350 17 GM/DOSE PO PRN (21:40)
[2021-10-24] MEDS: HYDROCODONE/APAP 5/325 MG TAB PO PRN ×4 (05:30→20:32)
[2021-10-24] MEDS: LEVOTHYROXINE SOD 0.05 MG TABLET PO SCH (05:30)
[2021-10-24] MEDS: carvediloL 25 MG TAB PO SCH ×2 (05:30→17:13)
[2021-10-24] MEDS: INSULIN -REGULAR HUMAN 50 UNIT/0.5 ML ML SQ SCH ×4 (07:30→20:13)
[2021-10-24] MEDS: CRANBERRY FRUIT EXTRACT 200 MG CAP PO SCH ×2 (08:17→20:31)
[2021-10-24] MEDS: PANTOPRAZOLE 40MG TABLET PO SCH (08:17)
[2021-10-24] MEDS: AMIODARONE HCL 200 MG TAB PO SCH (08:18)
[2021-10-24] MEDS: GABAPENTIN 300 MG CAP PO SCH ×2 (08:18→20:31)
[2021-10-24] MEDS: DOCUSATE NA 100 MG CAP PO SCH (08:18)
[2021-10-24] MEDS: ALOGLIPTIN BENZOATE 12.5 MG TABLET PO SCH (08:19)
[2021-10-24] MEDS: METFORMIN HCL 500 MG TAB PO SCH ×2 (08:19→17:13)
[2021-10-24] MEDS: ONDANSETRON 4 MG (ODT) TAB PO PRN (08:22)
[2021-10-24] MEDS: TAMSULOSIN 0.4 MG SR CAP PO SCH (08:22)
[2021-10-24] MEDS: DULOXETINE 30 MG CAP PO SCH (08:23)
[2021-10-24] MEDS: APIXABAN 2.5 MG TABLET PO SCH ×2 (08:23→20:31)
[2021-10-24] MEDS: GLIMEPIRIDE 2 MG TABLET PO SCH (08:23)
[2021-10-24] MEDS: FE SULF/FA/VIT B COMP & C TAB PO SCH (08:24)
[2021-10-24] MEDS: SENOSIDES 8.6 MG TAB PO SCH (08:24)
[2021-10-24] MEDS: RIVASTIGMINE 4.6 MG/24 HR PATCH TD SCH (08:25)
[2021-10-24] MEDS: MELATONIN 3 MG TABLET PO SCH (20:32)
[2021-10-24] MEDS: TRAZODONE 50 MG TABLET PO SCH (20:32)
[2021-10-25] MEDS: HYDROCODONE/APAP 5/325 MG TAB PO PRN ×5 (03:41→20:15)
[2021-10-25] MEDS: LEVOTHYROXINE SOD 0.05 MG TABLET PO SCH (05:29)
[2021-10-25] MEDS: carvediloL 25 MG TAB PO SCH ×2 (05:29→16:46)
[2021-10-25] MEDS: PANTOPRAZOLE 40MG TABLET PO SCH ×2 (06:25→07:07)
[2021-10-25] MEDS: RIVASTIGMINE 4.6 MG/24 HR PATCH TD SCH (06:26)
[2021-10-25] MEDS: INSULIN -REGULAR HUMAN 50 UNIT/0.5 ML ML SQ SCH ×4 (07:25→20:15)
[2021-10-25] MEDS: CRANBERRY FRUIT EXTRACT 200 MG CAP PO SCH ×2 (07:39→20:14)
[2021-10-25] MEDS: DULOXETINE 30 MG CAP PO SCH (07:39)
[2021-10-25] MEDS: SENOSIDES 8.6 MG TAB PO SCH (07:39)
[2021-10-25] MEDS: GABAPENTIN 300 MG CAP PO SCH ×2 (07:40→20:15)
[2021-10-25] MEDS: FE SULF/FA/VIT B COMP & C TAB PO SCH (07:40)
[2021-10-25] MEDS: ALOGLIPTIN BENZOATE 12.5 MG TABLET PO SCH (07:40)
[2021-10-25] MEDS: TAMSULOSIN 0.4 MG SR CAP PO SCH (07:40)
[2021-10-25] MEDS: METFORMIN HCL 500 MG TAB PO SCH ×2 (07:40→17:30)
[2021-10-25] MEDS: APIXABAN 2.5 MG TABLET PO SCH ×2 (07:40→20:14)
[2021-10-25] MEDS: GLIMEPIRIDE 2 MG TABLET PO SCH (07:41)
[2021-10-25] MEDS: DOCUSATE NA 100 MG CAP PO SCH (07:41)
[2021-10-25] MEDS: AMIODARONE HCL 200 MG TAB PO SCH (07:41)
[2021-10-25 08:34] LABS: CKMB Creatine Kinase MB 2.9 ng/mL (1.0-3.6); Troponin High Sensitivity 7.9 pg/mL (<58.9)
[2021-10-25] MEDS: methocarbamoL 750 MG TAB PO PRN (13:58)
[2021-10-25] MEDS: MELATONIN 3 MG TABLET PO SCH (20:14)
[2021-10-25] MEDS: TRAZODONE 50 MG TABLET PO SCH (20:15)
--- NOTE | 2021-10-25 20:20 | R.PN ---
PROGRESS NOTES ENCOUNTER DATE AND TIME: 10/25/2021 20:17 (CDT) NAME ABHISHEK RODRIGUES DATE OF : 1950 DATE OF ADMISSION: 10/05/2021 20:10 (CDT) Epidural hemorrhage without loss of consciousness, initial encounter (S06.4X0A)CHIEF COMPLAINT: Epidural hemorrhage SUBJECTIVE: Pt denied any Shortness of Breath. Pt denied any depression. WBC 9.2 Hgb 8.6, glucose 69 to 134, Na 135. Covid-19 is negative. Prealbumin 12.2. Ambulated 500' with standby assistance using a rolling walker. After mild transient chest pain and EKG suggesting infarct age undetermined, his CK-MB and Troponin I high sensitivity were normal. VITAL SIGNS Temperature: 98.2 F SBP/DBP: 134/65 Pulse: 63 Resp: 16 MEDICATION ALLERGIES: No Known Drug Allergies (NKDA) ENVIRONMENTAL ALLERGIES: - Substance Allergies None Known - Other Allergies None Known NURSING: - Shower allowing shower - Lab Results blood Sugar Check ACHS - Bladder care per protocol - Skin care per protocol PRECAUTIONS: - Fall Precaution Low bed TABS alarm Bed alarm - Weight Bearing Precaution No lifting greater than 10lbs - Incontinence Bowel Incontinence - DVT Risk due to restricted mobility and age - Skin Breakdown Risk due to restricted mobility and age ACTIVITIES OOB only with supervision THERAPIES: - Dietary and Nutrition Adequate Nutrition. Nutritional Education. Nutritional Supplements. - Occupational Therapy Cognitive Retraining. Patient needs Occupational Therapy for a daily minimum of 1.5 hours at least 5 out of 7 days, to improve Activities of Daily Living, including: Eating, Grooming, Bathing, Dressing, Toileting, Toilet Transfers, Community Reintegration, Higher functional activities, Adaptive Equipme nt, Splinting, Household Tasks, and Other activities as determined. Visual Perceptual Training. - Physical Therapy Patient needs Physical Therapy for a daily minimum of 1.5 hours at least 5 out of 7 days, to improve: Mobility, Strengthening, Transfers, Stretching, ROM, Endurance, Ability to manage stairs, Gait, and Balance. PHYSICAL EXAM - Gen Alert and awake Lying in bed No apparent distress Oriented to: person, time, and place No abnormalities - Eyes No abnormalities - ENMT [place] J cervical collar is in place - Neck [place] J cervical collar is in place - CVS RRR - Chest No abnormalities ASSESSMENT: Pt. is a 71 yo Right-handed male.On 09/30/2021 he was admitted to [facility] with diagnosis Epidural hemorr edy without loss of consciousness, initial encounter (S06.4X0A).His impairment category is Brain Dys function 02 - Closed Injury (03.29).Pre-morbidly, Pt. was independent/mod-I in Locomotion and Self-C are; and he had good Safety Awareness, Balance, Transfers Control, and Endurance.Currently, he has de ficits of Locomotion, Safety Awareness, Balance, Self-Care, Transfers Control, and Endurance.Pt. is n ow referred to [facility] for acute in-patient rehabilitation in order to maxi luis fernando patient's functional independence in activities of daily living, strength, ROM, and mobility.- R ehab Goal Patient has realistic goal of being discharged at assistance level 6-Amalia to reside at Home with Pt self. MDM/PLAN: - Physical Therapy Gait dysfunction - to improve, our physical therapists will perform initial evaluation of pt's statu s upon admission and devise an individualized program for Gait Training, and Wheel Chair mobility Inability to transfer - to improve, our physical therapists will perform initial evaluation of pt's status upon admission and devise an individualized program for Bed mobility Need for home safety evaluation - to improve, our physical therapists will perform initial evaluatio n of pt's status upon admission and devise an individualized program for Home Evaluation Need in caregiver upon discharge - to improve, our physical therapists will perform initial evaluati on of pt's status upon admission and devise an individualized program for Caregiver Training New precaution - to improve, our physical therapists will perform initial evaluation of pt's status upon admission and devise an individualized program for Patient precaution education Poor balance - to improve, our physical therapists will perform initial evaluation of pt's status up on admission and devise an individualized program for Balance Training Poor endurance - to improve, our physical therapists will perform initial evaluation of pt's status upon admission and devise an individualized program for Endurance Training Weakness - to improve, our physical therapists will perform initial evaluation of pt's status upon a dmission and devise an individualized program for Aquatic Therapy, Neuromuscular Reeducation, and Str engthening Achieving independence - to improve, our physical therapists will perform initial evaluation of pt's status upon admission and devise an individualized program for Community Reintegration Activities - Occupational Therapy ADL deficits - to improve, our occupation therapists will perform initial evaluation of pt's status upon admission and devise an individualized program for Bathing, Bed mobility, Community Reintegratio n, Cooking, Dressing, Eating, Fine Motor Skills, Grooming, Homemaking, Kitchen Mobility, Laundry, Pat ient Education, Safety Awareness, Splinting - Positioning, Transfers(Toilet, Tub, Shower), and Wheel Chair Management Need for patient care technician - to improve, our occupation therapists will perform initial evaluation of pt's status upon admission and devise an individualized program for Caregiver Training Weakness - to improve, our occupation therapists will perform initial evaluation of pt's status upon admission and devise an individualized program for Aquatic Therapy, Balance, Endurance, UE ROM, and UE strengthening - Other See attached MAR (Medication Administration Record) - Diet Type Continue Regular - Diet - Liquid Texture Continue Regular - Tube Feed Continue N/A - Incontinence Bowel Incontinence - Lab Results blood Sugar Check ACHS - Bladder care per protocol - DVT Risk due to restricted mobility and age - Skin Breakdown Risk due to restricted mobility and age - Weight Bearing Precaution No lifting greater than 10lbs - Fall Precaution Low bed 1 to 1 supervision TABS alarm Bed alarm - Skin care per protocol - Diet - Solid Texture Continue Regular - Shower allowing shower FUNCTIONAL STATUS: UPDATED AT WEEKLY TEAM CONFERENCE - Bladder Same accident frequency: 7-Ind - No accidents in the past 7 days - Bowel Same accident frequency: 7-Ind - No accidents in the past 7 days - Walking Same score based on distance walked: 0(N/A) - Wheelchair Same score based on distance traveled: 0(N/A) FUNCTIONAL STATUS: - Self-Care A. Eating Amalia B. Grooming Amalia C. Bathing modA D. Dressing - Upper Melony E. Dressing - Lower modA F. Toileting sup - Sphincter Control G. Bladder control Amalia H. Bowel control Amalia - Transfers Control I. Bed/Chair/Wheelchair Melony J. Toilet sup K. Tub/Shower modA - Locomotion L. Walk/Wheelchair (B) Melony M. Stairs modA - Communication N. Comprehension (B) sup O. Expression (B) sup - Social Cognition P. Social Interaction Amalia Q. Problem Solving sup R. Memory sup - Endurance Fair - Balance Fair - Safety Awareness Fair QI SCORES: - Self-Care A. Eating 04-Supervision or touching assistance B. Oral hygiene 04-Supervision or touching assistance C. Toileting hygiene 02-Substantial/maximal assistance E. Shower/bathe self 88-Not attempted due to medical condition or safety concerns F. Upper body dressing 04-Supervision or touching assistance G. Lower body dressing 02-Substantial/maximal assistance H. Putting on/taking off footwear 02-Substantial/maximal assistance - Mobility A. Roll left and right 03-Partial/moderate assistance B. Sit to lying 03-Partial/moderate assistance C. Lying to sitting on side of bed 03-Partial/moderate assistance D. Sit to stand 03-Partial/moderate assistance E. Chair/[id number] transfer 07-Patient refused F. Toilet transfer 07-Patient refused G. Car transfer 88-Not attempted due to medical condition or safety concerns I. Walk 10 feet 88-Not attempted due to medical condition or safety concerns J. Walk 50 feet with two turns 88-Not attempted due to medical condition or safety concerns K. Walk 150 feet 88-Not attempted due to medical condition or safety concerns L. Walking 10 feet on uneven surfaces 88-Not attempted due to medical condition or safety concerns M. 1 step (curb) 88-Not attempted due to medical condition or safety concerns N. 4 steps 88-Not attempted due to medical condition or safety concerns O. 12 steps 88-Not attempted due to medical condition or safety concerns P. Picking up object 88-Not attempted due to medical condition or safety concerns R. Wheel 50 feet with two turns 09-Not applicable S. Wheel 150 feet 09-Not applicable - Bladder and Bowel Bladder continence 9-Not applicable Bowel continence 1-Occasionally incontinent - Endurance Fair - Balance Poor - Safety Awareness Poor CURRENT FUNC. DEFICITS: Self-Care, Mobility, Endurance, Balance, and Safety Awareness SIGNATURE PANEL: (CDT)
[2021-10-26] MEDS: HYDROCODONE/APAP 5/325 MG TAB PO PRN ×3 (03:08→12:07)
[2021-10-26] MEDS: carvediloL 25 MG TAB PO SCH (05:03)
[2021-10-26] MEDS: LEVOTHYROXINE SOD 0.05 MG TABLET PO SCH (05:03)
--- NOTE | 2021-10-26 06:34 | EKG ---
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
[2021-10-26] MEDS: INSULIN -REGULAR HUMAN 50 UNIT/0.5 ML ML SQ SCH ×2 (07:15→11:30)
[2021-10-26 07:38] VITALS: TEMP 97.6
[2021-10-26] MEDS: GLIMEPIRIDE 2 MG TABLET PO SCH (08:32)
[2021-10-26] MEDS: APIXABAN 2.5 MG TABLET PO SCH (08:33)
[2021-10-26] MEDS: SENOSIDES 8.6 MG TAB PO SCH (08:33)
[2021-10-26] MEDS: DOCUSATE NA 100 MG CAP PO SCH (08:33)
[2021-10-26] MEDS: PANTOPRAZOLE 40MG TABLET PO SCH (08:34)
[2021-10-26] MEDS: GABAPENTIN 300 MG CAP PO SCH (08:34)
[2021-10-26] MEDS: ALOGLIPTIN BENZOATE 12.5 MG TABLET PO SCH (08:34)
[2021-10-26] MEDS: CRANBERRY FRUIT EXTRACT 200 MG CAP PO SCH (08:35)
[2021-10-26] MEDS: TAMSULOSIN 0.4 MG SR CAP PO SCH (08:35)
[2021-10-26] MEDS: AMIODARONE HCL 200 MG TAB PO SCH (08:36)
[2021-10-26] MEDS: METFORMIN HCL 500 MG TAB PO SCH (08:37)
[2021-10-26] MEDS: DULOXETINE 30 MG CAP PO SCH (08:37)
[2021-10-26] MEDS: RIVASTIGMINE 4.6 MG/24 HR PATCH TD SCH (08:38)
[2021-10-26] MEDS: FE SULF/FA/VIT B COMP & C TAB PO SCH (08:39)
[2021-10-26 15:51] VITALS: BP 146/68
--- NOTE | 2021-10-26 18:06 | R.PN ---
PROGRESS NOTES ENCOUNTER DATE AND TIME: 10/26/2021 18:01 (CDT) NAME ABHISHEK RODRIGUES DATE OF : 1950 DATE OF ADMISSION: 10/05/2021 20:10 (CDT) Epidural hemorrhage without loss of consciousness, initial encounter (S06.4X0A)CHIEF COMPLAINT: Epidural hemorrhage SUBJECTIVE: Pt denied any Shortness of Breath. Pt denied any depression. WBC 9.2 Hgb 8.6, glucose 89 to 140, Na 135. Covid-19 is negative. Prealbumin 12.2. Ambulated 500' with modified independence using a rolling walker. Self-propelled wheelchair modified independence. After mild transient chest pain and EKG suggesting infarct age undetermined, his CK-MB and Troponin I high sensitivity were normal. He will be discharged home today. VITAL SIGNS Temperature: 97.6 F SBP/DBP: 146/68 Pulse: 78 Resp: 16 MEDICATION ALLERGIES: No Known Drug Allergies (NKDA) ENVIRONMENTAL ALLERGIES: - Substance Allergies None Known - Other Allergies None Known NURSING: - Shower allowing shower - Lab Results blood Sugar Check ACHS - Bladder care per protocol - Skin care per protocol PRECAUTIONS: - Fall Precaution Low bed TABS alarm Bed alarm - Weight Bearing Precaution No lifting greater than 10lbs - Incontinence Bowel Incontinence - DVT Risk due to restricted mobility and age - Skin Breakdown Risk due to restricted mobility and age ACTIVITIES OOB only with supervision THERAPIES: - Dietary and Nutrition Adequate Nutrition. Nutritional Education. Nutritional Supplements. - Occupational Therapy Cognitive Retraining. Patient needs Occupational Therapy for a daily minimum of 1.5 hours at least 5 out of 7 days, to improve Activities of Daily Living, including: Eating, Grooming, Bathing, Dressing, Toileting, Toilet Transfers, Community Reintegration, Higher functional activities, Adaptive Equipme nt, Splinting, Household Tasks, and Other activities as determined. Visual Perceptual Training. - Physical Therapy Patient needs Physical Therapy for a daily minimum of 1.5 hours at least 5 out of 7 days, to improve: Mobility, Strengthening, Transfers, Stretching, ROM, Endurance, Ability to manage stairs, Gait, and Balance. PHYSICAL EXAM - Gen Alert and awake Lying in bed No apparent distress Oriented to: person, time, and place No abnormalities - Eyes No abnormalities - ENMT [place] cervical collar is in place - Neck [place] cervical collar is in place - CVS RRR - Chest No abnormalities ASSESSMENT: Pt. is a 71 yo Right-handed male.On 09/30/2021 he was admitted to [facility] with diagnosis Epidural hemorr edy without loss of consciousness, initial encounter (S06.4X0A).His impairment category is Brain Dys function 02 - Closed Injury (03.29).Pre-morbidly, Pt. was independent/mod-I in Locomotion and Self-C are; and he had good Safety Awareness, Balance, Transfers Control, and Endurance.Currently, he has de ficits of Locomotion, Safety Awareness, Balance, Self-Care, Transfers Control, and Endurance.Pt. is n ow referred to [facility] for acute in-patient rehabilitation in order to maxi luis fernando patient's functional independence in activities of daily living, strength, ROM, and mobility.- R ehab Goal Patient has realistic goal of being discharged at assistance level 6-Amalia to reside at Home with Pt self. MDM/PLAN: - Physical Therapy Gait dysfunction - to improve, our physical therapists will perform initial evaluation of pt's statu s upon admission and devise an individualized program for Gait Training, and Wheel Chair mobility Inability to transfer - to improve, our physical therapists will perform initial evaluation of pt's status upon admission and devise an individualized program for Bed mobility Need for home safety evaluation - to improve, our physical therapists will perform initial evaluatio n of pt's status upon admission and devise an individualized program for Home Evaluation Need in caregiver upon discharge - to improve, our physical therapists will perform initial evaluati on of pt's status upon admission and devise an individualized program for Caregiver Training New precaution - to improve, our physical therapists will perform initial evaluation of pt's status upon admission and devise an individualized program for Patient precaution education Poor balance - to improve, our physical therapists will perform initial evaluation of pt's status up on admission and devise an individualized program for Balance Training Poor endurance - to improve, our physical therapists will perform initial evaluation of pt's status upon admission and devise an individualized program for Endurance Training Weakness - to improve, our physical therapists will perform initial evaluation of pt's status upon a dmission and devise an individualized program for Aquatic Therapy, Neuromuscular Reeducation, and Str engthening Achieving independence - to improve, our physical therapists will perform initial evaluation of pt's status upon admission and devise an individualized program for Community Reintegration Activities - Occupational Therapy ADL deficits - to improve, our occupation therapists will perform initial evaluation of pt's status upon admission and devise an individualized program for Bathing, Bed mobility, Community Reintegratio n, Cooking, Dressing, Eating, Fine Motor Skills, Grooming, Homemaking, Kitchen Mobility, Laundry, Pat ient Education, Safety Awareness, Splinting - Positioning, Transfers(Toilet, Tub, Shower), and Wheel Chair Management Need for customer care agent - to improve, our occupation therapists will perform initial evaluation of pt's status upon admission and devise an individualized program for Caregiver Training Weakness - to improve, our occupation therapists will perform initial evaluation of pt's status upon admission and devise an individualized program for Aquatic Therapy, Balance, Endurance, UE ROM, and UE strengthening - Other See attached MAR (Medication Administration Record) - Diet Type Continue Regular - Diet - Liquid Texture Continue Regular - Tube Feed Continue N/A - Incontinence Bowel Incontinence - Lab Results blood Sugar Check ACHS - Bladder care per protocol - DVT Risk due to restricted mobility and age - Skin Breakdown Risk due to restricted mobility and age - Weight Bearing Precaution No lifting greater than 10lbs - Fall Precaution Low bed 1 to 1 supervision TABS alarm Bed alarm - Skin care per protocol - Diet - Solid Texture Continue Regular - Shower allowing shower FUNCTIONAL STATUS: UPDATED AT WEEKLY TEAM CONFERENCE - Bladder Same accident frequency: 7-Ind - No accidents in the past 7 days - Bowel Same accident frequency: 7-Ind - No accidents in the past 7 days - Walking Same score based on distance walked: 0(N/A) - Wheelchair Same score based on distance traveled: 0(N/A) FUNCTIONAL STATUS: - Self-Care A. Eating Amalia B. Grooming Amalia C. Bathing modA D. Dressing - Upper Melony E. Dressing - Lower modA F. Toileting sup - Sphincter Control G. Bladder control Amalia H. Bowel control Amalia - Transfers Control I. Bed/Chair/Wheelchair Melony J. Toilet sup K. Tub/Shower modA - Locomotion L. Walk/Wheelchair (B) Melony M. Stairs modA - Communication N. Comprehension (B) sup O. Expression (B) sup - Social Cognition P. Social Interaction Amalia Q. Problem Solving sup R. Memory sup - Endurance Fair - Balance Fair - Safety Awareness Fair QI SCORES: - Self-Care A. Eating 04-Supervision or touching assistance B. Oral hygiene 04-Supervision or touching assistance C. Toileting hygiene 02-Substantial/maximal assistance E. Shower/bathe self 88-Not attempted due to medical condition or safety concerns F. Upper body dressing 04-Supervision or touching assistance G. Lower body dressing 02-Substantial/maximal assistance H. Putting on/taking off footwear 02-Substantial/maximal assistance - Mobility A. Roll left and right 03-Partial/moderate assistance B. Sit to lying 03-Partial/moderate assistance C. Lying to sitting on side of bed 03-Partial/moderate assistance D. Sit to stand 03-Partial/moderate assistance E. Chair/piw-ny-phyou transfer 07-Patient refused F. Toilet transfer 07-Patient refused G. Car transfer 88-Not attempted due to medical condition or safety concerns I. Walk 10 feet 88-Not attempted due to medical condition or safety concerns J. Walk 50 feet with two turns 88-Not attempted due to medical condition or safety concerns K. Walk 150 feet 88-Not attempted due to medical condition or safety concerns L. Walking 10 feet on uneven surfaces 88-Not attempted due to medical condition or safety concerns M. 1 step (curb) 88-Not attempted due to medical condition or safety concerns N. 4 steps 88-Not attempted due to medical condition or safety concerns O. 12 steps 88-Not attempted due to medical condition or safety concerns P. Picking up object 88-Not attempted due to medical condition or safety concerns R. Wheel 50 feet with two turns 09-Not applicable S. Wheel 150 feet 09-Not applicable - Bladder and Bowel Bladder continence 9-Not applicable Bowel continence 1-Occasionally incontinent - Endurance Fair - Balance Poor - Safety Awareness Poor CURRENT FUNC. DEFICITS: Self-Care, Mobility, Endurance, Balance, and Safety Awareness SIGNATURE PANEL: (CDT)
--- NOTE | 2021-10-28 13:14 | R.DS ---
DISCHARGE SUMMARY FACILITY [facility] MR# [id number] NAME ABHISHEK RODRIGUES ADDRESS [address] [place] [address] PHONE ( DATE OF 1950 AGE 71 SSN# [id number] GENDER Male MARITAL STATUS Unknown ENCOUNTER PHYSICIAN Dr. Uvaldo Gomez M.D. REFERRING DOCTOR Pato Mcmillan REFERRING FACILITY [facility] DISCHARGE DIAGNOSIS: - Brain Dysfunction 02 - Closed Injury (02.22) Epidural hemorrhage without loss of consciousness, initial encounter (S06.4X0A). DISCHARGE COMORBIDITIES: - Tier 3 Chronic systolic (congestive) heart failure (I50.22) - Non-Tiered Unspecified atrial fibrillation (I48.91) Chronic kidney disease, unspecified (N18.9) Essential (primary) hypertension (I10) Type 2 diabetes mellitus without complications (E11.9) Hypo-osmolality and hyponatremia (E87.1) Syncope and collapse (R55) Hyperkalemia (E87.5) Alzheimer's disease with late onset (G30.1) Atrioventricular block, first degree (I44.0) - N/A Grade III dens fracture Left C7 facet fracture DATE OF ADMISSION 10/05/2021 20:10 (CDT) MEDICATION ALLERGIES: No Known Drug Allergies (NKDA) ENVIRONMENTAL ALLERGIES: - Substance Allergies None Known - Other Allergies None Known DISCHARGE MEDICATIONS: Other- ContinueSee attached MAR (Medication Administration Record). NURSING: - Shower allowing shower - Lab Results blood Sugar Check ACHS - Bladder care per protocol - Skin care per protocol PRECAUTIONS: - Fall Precaution Low bed TABS alarm Bed alarm - Weight Bearing Precaution No lifting greater than 10lbs - Incontinence Bowel Incontinence - DVT Risk due to restricted mobility and age - Skin Breakdown Risk due to restricted mobility and age ACTIVITIES OOB only with supervision THERAPIES: - Dietary and Nutrition Adequate Nutrition Nutritional Education Nutritional Supplements - Occupational Therapy Cognitive Retraining Patient needs Occupational Therapy for a daily minimum of 1.5 hours at least 5 out of 7 days, to impr ove Activities of Daily Living, including: Eating, Grooming, Bathing, Dressing, Toileting, Toilet Tra nsfers, Community Reintegration, Higher functional activities, Adaptive Equipment, Splinting, Househo ld Tasks, and Other activities as determined Visual Perceptual Training - Physical Therapy Patient needs Physical Therapy for a daily minimum of 1.5 hours at least 5 out of 7 days, to improve: Mobility, Strengthening, Transfers, Stretching, ROM, Endurance, Ability to manage stairs, Gait, and Balance HISTORY OF PRESENT ILLNESS: Pt. is a 71 yo Right-handed male.On 09/30/2021 he was admitted to [facility] with diagnosis Epidural hemorr edy without loss of consciousness, initial encounter (S06.4X0A).His impairment category is Brain Dys function 02 - Closed Injury (03.29).Pre-morbidly, Pt. was independent/mod-I in Locomotion and Self-C are; and he had good Safety Awareness, Balance, Transfers Control, and Endurance.Currently, he has de ficits of Locomotion, Safety Awareness, Balance, Self-Care, Transfers Control, and Endurance.Pt. is n ow referred to [facility] for acute in-patient rehabilitation in order to maxi luis fernando patient's functional independence in activities of daily living, strength, ROM, and mobility.- R ehab Goal Patient has realistic goal of being discharged at assistance level 6-Amalia to reside at Home with Pt self. DVT RISK: On 10/04/2021 the following precautions were added for the patient: DVT Risk - due to restricted mobi lity and age. On 10/06/2021 the following precautions were added for the patient: DVT Risk - due to restricted mob ility and age. On 10/11/2021 the following precautions were removed for the patient: DVT Risk - due to restricted m obility and age. On 10/12/2021 the following precautions were added for the patient: DVT Risk - due to restricted mob ility and age. The following precautions were removed for the patient: DVT Risk - due to restricted mobility and age , and DVT Risk - due to restricted mobility and age. On 10/04/2021 the following precautions were added for the patient: Fall Precaution - Low bed, Fall P recaution - TABS alarm, and Fall Precaution - Bed alarm. On 10/06/2021 the following precautions were added for the patient: Fall Precaution - 1 to 1 supervi kat, Fall Precaution - Low bed, Fall Precaution - TABS alarm, and Fall Precaution - Bed alarm. On 10/11/2021 the following precautions were removed for the patient: Fall Precaution - 1 to 1 super vision, Fall Precaution - Low bed, Fall Precaution - TABS alarm, and Fall Precaution - Bed alarm. The following precautions were added for the patient: Fall Precaution - 1 to 1 supervision. On 10/12/2021 the following precautions were removed for the patient: Fall Precaution - 1 to 1 superv ision. The following precautions were added for the patient: Fall Precaution - Low bed, Fall Precaution - 1 to 1 supervision, Fall Precaution - TABS alarm, and Fall Precaution - Bed alarm. On 10/04/2021 the following precautions were removed for the patient: Fall Precaution - Low bed, Fall Precaution - TABS alarm, Fall Precaution - Bed alarm, Fall Precaution - Low bed, Fall Precaution - 1 to 1 supervision, Fall Precaution - TABS alarm, and Fall Precaution - Bed alarm. The following precautions were added for the patient: Incontinence - Bowel Incontinence. On 10/06/2021 the following precautions were added for the patient: Incontinence - Bowel Incontinenc e. On 10/11/2021 the following precautions were removed for the patient: Incontinence - Bowel Incontine nce. On 10/12/2021 the following precautions were added for the patient: Incontinence - Bowel Incontinenc e. On 10/04/2021 the following precautions were removed for the patient: Incontinence - Bowel Incontinen ce, and Incontinence - Bowel Incontinence. The following precautions were added for the patient: Skin Breakdown Risk - due to restricted mobilit y and age. On 10/06/2021 the following precautions were added for the patient: Skin Breakdown Risk - due to res tricted mobility and age. On 10/11/2021 the following precautions were removed for the patient: Skin Breakdown Risk - due to r estricted mobility and age. On 10/12/2021 the following precautions were added for the patient: Skin Breakdown Risk - due to res tricted mobility and age. The following precautions were removed for the patient: Skin Breakdown Risk - due to restricted mobil ity and age, and Skin Breakdown Risk - due to restricted mobility and age. On 10/04/2021 the following precautions were added for the patient: Weight Bearing Precaution - No li fting greater than 10lbs. On 10/06/2021 the following precautions were added for the patient: Weight Bearing Precaution - No l ifting greater than 10lbs. On 10/11/2021 the following precautions were removed for the patient: Weight Bearing Precaution - No lifting greater than 10lbs. On 10/12/2021 the following precautions were added for the patient: Weight Bearing Precaution - No l ifting greater than 10lbs. DIET - LIQUID TEXTURE: On 10/04/2021 Pt was upgraded to Regular Diet - Liquid Texture. DIET - SOLID TEXTURE: On 10/04/2021 Pt was upgraded to Regular Diet - Solid Texture. DIET TYPE: On 10/04/2021 Pt was upgraded to Regular Diet Type. FALL PRECAUTION: INCONTINENCE: SKIN BREAKDOWN RISK: TUBE FEED: On 10/04/2021 Pt was changed to N/A Tube Feed. WEIGHT BEARING PRECAUTION: DISCHARGE PHYSICAL EXAM - Gen Alert and awake Lying in bed No apparent distress Oriented to: person, time, and place No abnormalities - Eyes No abnormalities - ENMT [place] cervical collar is in place - Neck [place] cervical collar is in place - CVS RRR - Chest No abnormalities FUNCTIONAL STATUS: - Self-Care A. Eating 6-Amalia B. Grooming 6-Amalia C. Bathing 5-sup D. Dressing - Upper 5-sup E. Dressing - Lower 5-sup F. Toileting 5-sup - Sphincter Control G. Bladder control 6-Amalia H. Bowel control 6-Amalia - Transfers Control I. Bed/Chair/Wheelchair 5-sup J. Toilet 5-sup K. Tub/Shower 5-sup - Locomotion L. Walk/Wheelchair (B) 5-sup M. Stairs 3-modA - Communication N. Comprehension (B) 5-sup O. Expression (B) 5-sup - Social Cognition P. Social Interaction 6-Amalia Q. Problem Solving 5-sup R. Memory 5-sup - Endurance Good - Balance Good - Safety Awareness Good QI SCORES: - Self-Care A. Eating 04-Supervision or touching assistance B. Oral hygiene 04-Supervision or touching assistance C. Toileting hygiene 02-Substantial/maximal assistance E. Shower/bathe self 88-Not attempted due to medical condition or safety concerns F. Upper body dressing 04-Supervision or touching assistance G. Lower body dressing 02-Substantial/maximal assistance H. Putting on/taking off footwear 02-Substantial/maximal assistance - Mobility A. Roll left and right 03-Partial/moderate assistance B. Sit to lying 03-Partial/moderate assistance C. Lying to sitting on side of bed 03-Partial/moderate assistance D. Sit to stand 03-Partial/moderate assistance E. Chair/[id number]-vl-hgpxc transfer 07-Patient refused F. Toilet transfer 07-Patient refused G. Car transfer 88-Not attempted due to medical condition or safety concerns I. Walk 10 feet 88-Not attempted due to medical condition or safety concerns J. Walk 50 feet with two turns 88-Not attempted due to medical condition or safety concerns K. Walk 150 feet 88-Not attempted due to medical condition or safety concerns L. Walking 10 feet on uneven surfaces 88-Not attempted due to medical condition or safety concerns M. 1 step (curb) 88-Not attempted due to medical condition or safety concerns N. 4 steps 88-Not attempted due to medical condition or safety concerns O. 12 steps 88-Not attempted due to medical condition or safety concerns P. Picking up object 88-Not attempted due to medical condition or safety concerns R. Wheel 50 feet with two turns 09-Not applicable S. Wheel 150 feet 09-Not applicable - Bladder and Bowel Bladder continence 9-Not applicable Bowel continence 1-Occasionally incontinent - Endurance Fair - Balance Poor - Safety Awareness Poor DISCHARGE INSTRUCTIONS: - N/A Eliquis 2.5 mg twice daily. DISCHARGE PLAN, FOLLOW UP CARE PROVISIONS: - Estimated Length of Stay (days) 17. - Consensus on plan Discharge plan has been discussed with primary caregiver. Patient/Family is in agreement with the mae n. Primary caregiver is in agreement with the plan. - Patient/Family Goals Return home independently. - Planned Living Setting Upon Discharge Home, to live alone. Transitional Living. Primary caregiver: Pt self. SIGNATURE PANEL: (CDT)
== END 2021-10-26 14:45 | disposition home health service (06) | DRG 948 ==
LOC: 5TH 20:07
PROVIDERS: ADMIT Psychiatry & Neurology Neurology with Special Qualifications in Child Neurology; ATTEND Psychiatry & Neurology Neurology with Special Qualifications in Child Neurology
PROC: 0HCNXZZ Extirpation of Matter from Left Foot Skin, External Approach (ICD-10-PCS; principal; 2021-10-11)
DX: R53.81 Other malaise (principal); I50.22 Chronic systolic (congestive) heart failure; I13.0 Hypertensive heart and chronic kidney disease with heart failure and stage 1 through stage 4 chronic kidney disease, or unspecified chronic kidney disease; N18.9 Chronic kidney disease, unspecified; E11.22 Type 2 diabetes mellitus with diabetic chronic kidney disease; S90.852A Superficial foreign body, left foot, initial encounter; Z20.822 Contact with and (suspected) exposure to COVID-19
CPT/HCPCS: 36415; 80048; 81001; 82040; 82553; 82947; 83735; 83880; 84134; 84484; 85025; 87086; 87088; 93005; 97110; 97112; 97116; 97162; 97530; 97542; J1815; J2405; J7030; Q0162; U0003

== ENCOUNTER 2022-02-10 21:43 | Emergency (ER) | payer OTHER ==
--- OUTSIDE RECORDS SUMMARY | 2022-02-10 21:58 | XMS REPORT | Continuity of Care Document ---
:1950 Author Organization [facility] t Address [address] [place] [address] Care Team Providers Name Role Phone Edgardo García Primary Care Physician APURVA HOWARD Attending Clinician Unavailable ARIANE ROUSE Attending Clinician Unavailable SUKI KIRKPATRICK Attending Clinician Unavailable Alma Rosa Hernández Attending Clinician Suki Kirkpatrick MD Attending Clinician KELSEA SHER Attending Clinician Unavailable Nelia Li LMSW Attending Clinician Tatyana Sweeney DO Attending Clinician Doctor Unassigned, [place] Attending Clinician Unavailable Pob, [facility] Main Attending Clinician Unavailable Leticia Gomez PT Attending Clinician Unavailable NAILA GIRALDO Attending Clinician Unavailable NAILA GIRALDO Attending Clinician Unavailable Noy Og LMSW Attending Clinician Unavailable Apurva Howard MD Attending Clinician ALMA ROSA CARRERA Attending Clinician Unavailable Edgardo García Attending Clinician Eric Cole MD Attending Clinician ERIC COLE Attending Clinician Unavailable ERIC COLE Attending Clinician Unavailable Mamta Gonzalez RN Attending Clinician Unavailable Rolando Laguerre MD Attending Clinician Misty Avelar MA Attending Clinician Unavailable Lab, Ang - Db Attending Clinician Unavailable Jacqueline Pandya DO Attending Clinician Leon Hennessy MD Attending Clinician TATYANA SWEENEY Attending Clinician Unavailable Guanaco Jones MA Attending Clinician Unavailable TATYANA SWEENEY Admitting Clinician Unavailable Tatyana Sweeney DO Admitting Clinician NAILA GIRALDO Admitting Clinician Unavailable Leon Hennessy MD Admitting Clinician LEON HENNESSY Admitting Clinician Unavailable Payers Payer Name Policy Type Policy Number Effective Date Expiration Date Demond quinones MEDICARE PART A [id number] 2015 \T\ B 00:00:00 BCBS FED SELECT [id number] 2004 00:00:00 Problems Condition Condition Condition Status Onset Resolution Last Treating Co mments Source Name Details Category Date Date Treatment Clinician Date Hip pain Hip pain Disease Active 2021-02 Unive rs 2-05 ity of 00:00: [place] [facility] Branch Arthritis Arthritis Disease Active 2021-02 Overview: Univers of left of left 02-25 Formattin ity o f hip hip 00:00: g of this [place] 00 note Medical might be Branch different from the original. Added automatic ally from request for surgery [id number] Walker as Walker as Disease Active 2021-02 Uni vers ambulation ambulation 1-21 it y of aid aid 00:00: [facility] Branch Other Other Disease Active 2021-02 Univers chronic chronic 1-21 ity of pain pain 00:00: [place] [facility] Branch Other Other Disease Active 2021-02 Univers specified specified 0-24 ity of anemias anemias 00:00: [address] Branch Frequent Frequent Disease Active 2021-02 Unive rs falls falls 0-24 ity of 00:00: [facility] Branch Hyponatrem Hyponatrem Disease Active U nivers ia ia 8-24 ity of 00:00: [place] 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 without without HGB A1C long-term long-term (%) Date current current Value use of use of insulin insulin 2 8.4 (H) No results found for: [id number] Late onset Late onset Disease Active U nivers Alzheimer Alzheimer 8-24 ity of disease disease 00:00: [place] [facility] 1st degree 1st degree Disease Active U nivers AV block AV block 8-24 ity of 00:00: [place] [facility] Other Other Disease Active Univers specified specified 8-24 ity of hypothyroi [place]othyroi [place] dis[place] dism 00 Medical Branch Chronic Chronic Disease Recurre Univer s indwelling indwelling nce 8-24 it y of Gonzalez Gonzalez 00:00: [place] catheter catheter 00 Medica l Branch Hyperkalem Hyperkalem Disease Active U nivers ia ia 8-24 ity of 00:00: [place] [facility] Syncope, Syncope, Disease Active Unive rs unspecifie unspecifie 8-18 it y of d syncope d [place] Chronic Chronic Disease Active Univers kidney kidney 6-30 ity of disease, disease, 00:00: [place] stage 3 stage 3 00 Medical unspecifie unspecifie Br anch d d Chronic Chronic Disease Active Univers atrial atrial 6-30 ity of fibrillati fibrillati 00:00: [place], 00 Medical unspecifie unspecifie Br anch d d Chronic Chronic Disease Active Univers systolic systolic 6-30 ity of (congestiv (congestiv [place] heart e) heart 00 Medica l failure failure Branch Pulmonary Pulmonary Disease Active Uni vers nodule nodule 6-28 ity of 00:00: [place] [facility] Fall, Fall, Disease Active Univers initial initial 6-27 it[place] of encounter encounter [place] Elevated Elevated Disease Active [facility] cortisol cortisol [address] level level 00:00: Hospita 00 l Acquired Acquired Disease Active [facility] di hypothyroi hypothyroi 6-13 st dism dism 00:00: Hospita 00 l Hyponatrem Hyponatrem Disease Active M ethodi ia ia 6 st 00:00: Hospita 00 l Abnormal Abnormal Disease Active [facility] di liver liver 07-18 function function 00:00: Hospit a test test 00 l Iron Iron Disease Active Methodi deficiency deficiency 07-18 anemia anemia 00:00: Hospita 00 l Vitamin [...] Type Date Date Clinician MORPHINE DRUG Active Hallucinates Un pat INGREDI 6-27 ity of 00:00: [address] Morphine Propensi Active Hallucinatio Univers ty to ns 6-27 ity of adverse 00:00: [place] reaction 00 [facility] Morphine Propensi Active Hallucinatio Methodi ty to ns 5-26 st adverse 00:00: Hospita reaction 00 l s to drug Family History Family Member Diagnosis Comments Start Date Stop Date Source [facility] Natural daughter Kidney disease [facility] Natural father Hypertension [facility] Social History Social Habit Start Date Stop Date Quantity Comments Source Exposure to 2022-01-17 2022-01-27 Not sure University of SARS-CoV-2 00:00:00 10:09:00 [facility] (event) [facility] Tobacco use and 2021-08-26 2021-08-26 Smokeless tobacco Un iversity of exposure 00:00:00 00:00:00 non-user [facility] Education 2021-08-01 2021-08-01 14 University of 00:00:00 00:00:00 [facility] Alcohol intake 2021-07-18 2021-07-18 [facility] 00:00:00 00:00:00 non-drinker Hospital (finding) Sex Ass[birth year] At [birth year] [facility] 00:[facility]00 [facility] Smoking Status Start Date Stop Date Source Never smoked tobacco [facility] Medications Ordered Filled Start Stop Current Ordering Indication Dosage Frequency Signature Comments Components Source Medication Medication Date Date Medication? Clinician (SIG) Name Name aspirin 2021-02 Yes 325mg 325 mg, Univer s E.C. 2-07 Oral, ity of (ECOTRIN) 15:00: DAILY, [place] tablet 325 00 First dose Med ical mg on [place] [facility] 01/11/22 at 0900, Until Discontinu ed, Routine aspirin 2021-02 Yes 325mg 325 mg, Univer s E.C. 2-07 Oral, ity of (ECOTRIN) 15:00: DAILY, [place] tablet 325 00 First dose Med ical mg on [place] [facility] 01/11/22 at 0900, Until Discontinu ed, Routine bisacodyL 2021-02 No 10mg 10 mg, Unive rs (DULCOLAX) 2 12-07 Rectal, ity o f suppository 14:33: 14:52 QHSPRN, 1 [place] 10 mg 29 :00 dose, Medical Starting Branch on Sun01/11/22 at 0833, Until Sun01/11/22 at 0852, Routine, Constipati on unresolved by oral medication s glimepiride 2021-02 Yes 1mg Take 1 mg U nivers 1 mg tablet 2-07 by mouth ity of 14:18: daily with [place] 35 breakfast. Medical Branch amiodarone 2021-02 Yes 200mg Take 200 Un pat 200 mg 2-07 mg by ity of tablet 14:18: mouth [place] 35 daily. Medical Branch carvediloL 2021-02 Yes 25mg Take 25 mg U nivers 25 mg 2-07 by mouth 2 ity of tablet 14:18: (two) [place] 35 times Medical daily with Branch meals. DULoxetine 2021-02 Yes 60mg Take 60 mg U nivers 60 mg 2-07 by mouth ity of capsule 14:18: daily. [address] Branch ferrous 2021-02 Yes 325mg Take 325 Unive rs sulfate 325 2-07 mg by ity of mg (65 mg 14:18: mouth 2 [facility]) [place] 35 (two) Medical tablet times Branch daily with meals. gabapentin 2021-02 Yes 400mg Take 400 Un pat 400 mg 2-07 mg by ity of capsule 14:18: mouth 2 [place] [address] (two) Medical times Branch daily. omeprazole 2021-02 Yes 20mg Take 20 mg U nivers 20 mg 2-07 by mouth ity of capsule 14:18: daily. [address] Branch tamsulosin 2021-02 Yes Take by Univ ers 0.4 mg 24 2-07 mouth ity of hr capsule 14:18: daily. [address] Branch traZODone 2021-02 Yes 200mg Take 200 Uni vers 150 mg 2-07 mg by ity of tablet 14:18: mouth in [place] [address] the Medical morning. Branch Take 2 tablets by mouth at bedtime, May take an additional tablet in the middle of the night. glimepiride 2021-02 Yes 1mg Take 1 mg U nivers 1 mg tablet 2-07 by mouth ity of 14:18: daily with [place] [address] breakfast. Medical Branch amiodarone 2021-02 Yes 200mg Take 200 Un pat 200 mg 2-07 mg by ity of tablet 14:18: mouth [place] [address] daily. Medical Branch carvediloL 2021-02 Yes 25mg Take 25 mg U nivers 25 mg 2-07 by mouth 2 ity of tablet 14:18: (two) [place] [address] times [facility] daily with Branch meals. DULoxetine 2021-02 Yes 60mg Take 60 mg U nivers 60 mg 2-07 by mouth ity of capsule 14:18: daily. [place] [address] Medical Branch ferrous 2021-02 Yes 325mg Take 325 Unive rs sulfate 325 2-07 mg by ity of mg (65 mg 14:18: mouth 2 [facility]) EC 35 (two) Medical tablet times [facility] daily with meals. gabapentin 2021-02 Yes 400mg Take 400 Un pat 400 mg 2-07 mg by ity of capsule 14:18: mouth 2 [place] 35 (two) Medical times Branch daily. omeprazole 2021-02 Yes 20mg Take 20 mg U nivers 20 mg 2-07 by mouth ity of capsule 14:18: daily. [address] tamsulosin 2021-02 Yes Take by Univ ers 0.4 mg 24 2-07 mouth ity of hr capsule 14:18: daily. [address] Branch traZODone 2021-02 Yes 200mg Take 200 Uni vers 150 mg 2-07 mg by ity of tablet 14:18: mouth in [place] [address] the Medical morning. Branch Take 2 tablets by mouth at bedtime, May take an additional tablet in the middle of the night. glimepiride 2021-02 Yes 1mg Take 1 mg U nivers 1 mg tablet 2-07 by mouth ity of 14:18: daily with [place] [address] breakfast. Medical Branch amiodarone 2021-02 Yes 200mg Take 200 Un pat 200 mg 2-07 mg by ity of tablet 14:18: mouth [place] [address] daily. Medical Branch carvediloL 2021-02 Yes 25mg Take 25 mg U nivers 25 mg 2-07 by mouth 2 ity of tablet 14:18: (two) [address] daily with Branch meals. DULoxetine 2021-02 Yes 60mg Take 60 mg U nivers 60 mg 2-07 by mouth ity of capsule 14:18: daily. [address] ferrous 2021-02 Yes 325mg Take 325 Unive rs sulfate 325 2-07 mg by ity of mg (65 mg 14:18: mouth 2 [facility]) [facility] (two) Medical tablet times [facility] daily with meals. gabapentin 2021-02 Yes 400mg Take 400 Un pat 400 mg 2-07 mg by ity of capsule 14:18: mouth 2 [place] [address] (two) Medical times Branch daily. omeprazole 2021-02 Yes 20mg Take 20 mg U nivers 20 mg 2-07 by mouth ity of capsule 14:18: daily. [address] tamsulosin 2021-02 Yes Take by Univ ers 0.4 mg 24 2-07 mouth ity of hr capsule 14:18: daily. [address] traZODone 2021-02 Yes 200mg Take 200 Uni vers 150 mg 2-07 mg by ity of tablet 14:18: mouth in [place] [address] the Medical morning. Branch Take 2 tablets by mouth at bedtime, May take an additional tablet in the middle of the night. glimepiride 2021-02 Yes 1mg Take 1 mg U nivers 1 mg tablet 2-07 by mouth ity of 14:18: daily with [place] [address] breakfast. Medical Branch amiodarone 2021-02 Yes 200mg Take 200 Un pat 200 mg 2-07 mg by ity of tablet 14:18: mouth [place] [address] daily. Medical Branch carvediloL 2021-02 Yes 25mg Take 25 mg U nivers 25 mg 2-07 by mouth 2 ity of tablet 14:18: (two) [address] daily with Branch meals. DULoxetine 2021-02 Yes 60mg Take 60 mg U nivers 60 mg 2-07 by mouth ity of capsule 14:18: daily. [address] Branch ferrous 2021-02 Yes 325mg Take 325 Unive rs sulfate 325 2-07 mg by ity of mg (65 mg 14:18: mouth 2 [place] iron) 35 (two) Medical tablet times [facility] daily with meals. gabapentin 2021-02 Yes 400mg Take 400 Un pat 400 mg 2-07 mg by ity of capsule 14:18: mouth 2 [place] 35 (two) Medical times [facility] daily. omeprazole 2021-02 Yes 20mg Take 20 mg U nivers 20 mg 2-07 by mouth ity of capsule 14:18: daily. [address] Branch tamsulosin 2021-02 Yes Take by Univ ers 0.4 mg 24 2-07 mouth ity of hr capsule 14:18: daily. [address] Branch traZODone 2021-02 Yes 200mg Take 200 Uni vers 150 mg 2-07 mg by ity of tablet 14:18: mouth in [place] [address] the Medical morning. Branch Take 2 tablets by mouth at bedtime, May take an additional tablet in the middle of the night. glimepiride 2021-02 Yes 1mg Take 1 mg U nivers 1 mg tablet 2-07 by mouth ity of 14:18: daily with [place] [address] breakfast. Medical Branch amiodarone 2021-02 Yes 200mg Take 200 Un pat 200 mg 2-07 mg by ity of tablet 14:18: mouth [place] [address] daily. Medical Branch carvediloL 2021-02 Yes 25mg Take 25 mg U nivers 25 mg 2-07 by mouth 2 ity of tablet 14:18: (two) [address] daily with Branch meals. DULoxetine 2021-02 Yes 60mg Take 60 mg U nivers 60 mg 2-07 by mouth ity of capsule 14:18: daily. [address] Branch ferrous 2021-02 Yes 325mg Take 325 Unive rs sulfate 325 2-07 mg by ity of mg (65 mg 14:18: mouth 2 [place] iron) [place] 35 (two) Medical tablet times Branch daily with meals. gabapentin 2021-02 Yes 400mg Take 400 Un pat 400 mg 2-07 mg by ity of capsule 14:18: mouth 2 [place] [address] (two) Medical times Branch daily. omeprazole 2021-02 Yes 20mg Take 20 mg U nivers 20 mg 2-07 by mouth ity of capsule 14:18: daily. [address] Branch tamsulosin 2021-02 Yes Take by Univ ers 0.4 mg 24 2-07 mouth ity of hr capsule 14:18: daily. [address] Branch traZODone 2021-02 Yes 200mg Take 200 Uni vers 150 mg 2-07 mg by ity of tablet 14:18: mouth in [place] [address] the Medical morning. Branch Take 2 tablets by mouth at bedtime, May take an additional tablet in the middle of the night. glimepiride 2021-02 Yes 1mg Take 1 mg U nivers 1 mg tablet 2-07 by mouth ity of 14:18: daily with [place] [address] breakfast. Medical Branch amiodarone 2021-02 Yes 200mg Take 200 Un pat 200 mg 2-07 mg by ity of tablet 14:18: mouth [place] [address] daily. Medical Branch carvediloL 2021-02 Yes 25mg Take 25 mg U nivers 25 mg 2-07 by mouth 2 ity of tablet 14:18: (two) [place] [address] times [facility] daily with Branch meals. DULoxetine 2021-02 Yes 60mg Take 60 mg U nivers 60 mg 2-07 by mouth ity of capsule 14:18: daily. [address] Branch ferrous 2021-02 Yes 325mg Take 325 Unive rs sulfate 325 2-07 mg by ity of mg (65 mg 14:18: mouth 2 [facility]) 35 (two) Medical tablet times [facility] daily with meals. gabapentin 2021-02 Yes 400mg Take 400 Un pat 400 mg 2-07 mg by ity of capsule 14:18: mouth 2 [place] [address] (two) Medical times Branch daily. omeprazole 2021-02 Yes 20mg Take 20 mg U nivers 20 mg 2-07 by mouth ity of capsule 14:18: daily. [address] Branch tamsulosin 2021-02 Yes Take by Univ ers 0.4 mg 24 2-07 mouth ity of hr capsule 14:18: daily. [address] Branch traZODone 2021-02 Yes 200mg Take 200 Uni vers 150 mg 2-07 mg by ity of tablet 14:18: mouth in [place] [address] the Medical morning. Branch Take 2 tablets by mouth at bedtime, May take an additional tablet in the middle of the night. glimepiride 2021-02 Yes 1mg Take 1 mg U nivers 1 mg tablet 2-07 by mouth ity of 14:18: daily with [place] [address] breakfast. Medical Branch amiodarone 2021-02 Yes 200mg Take 200 Un pat 200 mg 2-07 mg by ity of tablet 14:18: mouth [place] [address] daily. Medical Branch carvediloL 2021-02 Yes 25mg Take 25 mg U nivers 25 mg 2-07 by mouth 2 ity of tablet 14:18: (two) [address] daily with Branch meals. DULoxetine 2021-02 Yes 60mg Take 60 mg U nivers 60 mg 2-07 by mouth ity of capsule 14:18: daily. [address] Branch ferrous 2021-02 Yes 325mg Take 325 Unive rs sulfate 325 2-07 mg by ity of mg (65 mg 14:18: mouth 2 [facility]) [facility] (two) Medical tablet times [facility] daily with meals. gabapentin 2021-02 Yes 400mg Take 400 Un pat 400 mg 2-07 mg by ity of capsule 14:18: mouth 2 [place] 35 (two) Medical times Branch daily. omeprazole 2021-02 Yes 20mg Take 20 mg U nivers 20 mg 2-07 by mouth ity of capsule 14:18: daily. [address] Branch tamsulosin 2021-02 Yes Take by Univ ers 0.4 mg 24 2-07 mouth ity of hr capsule 14:18: daily. [address] traZODone 2021-02 Yes 200mg Take 200 Uni vers 150 mg 2-07 mg by ity of tablet 14:18: mouth in [place] [address] the Medical morning. Branch Take 2 tablets by mouth at bedtime, May take an additional tablet in the middle of the night. polyethylen 2021-02 Yes [id number] 17g Take 1 Univers e glycol 2-07 Packet by ity of 3350 17 00:00: mouth in [place] gram powder 00 the Medical morning Branch and 1 Packet in the evening. As needed HYDROcodone 2021-02 Yes 4647 1{tbl} Take 1 Un pat -acetaminop 2-07 tablet by ity of hen 5-325 00:00: mouth [place] mg tablet 00 every 6 Medical (six) Branch hours as needed for Pain (scale 7-10). Indication s: acute pain polyethylen 2021-02 Yes [id number] 17g Take 1 Univers e glycol 2-07 Packet by ity of 3350 17 00:00: mouth in [place] gram powder 00 the Medical morning Branch and 1 Packet in the evening. As needed HYDROcodone 2021-02 Yes 4647 1{tbl} Take 1 Un pat -acetaminop 2-07 tablet by ity of hen 5-325 00:00: mouth [place] mg tablet 00 every 6 Medical (six) Branch hours as needed for Pain (scale 7-10). Indication s: acute pain polyethylen 2021-02 Yes [id number] 17g Take 1 Univers e glycol 2-07 Packet by ity of 3350 17 00:00: mouth in [place] gram powder the Medical morning Branch and 1 Packet in the evening. As needed HYDROcodone 2021-02 Yes 4647 1{tbl} Take 1 Un pat -acetaminop 2-07 tablet by ity of hen 5-325 00:00: mouth [place] mg tablet 00 every 6 Medical (six) Branch hours as needed for Pain (scale 7-10). Indication s: acute pain polyethylen 2021-02 Yes [id number] 17g Take 1 Univers e glycol 2-07 Packet by ity of 3350 17 00:00: mouth in [place] gram powder 00 the Medical morning Branch and 1 Packet in the evening. As needed HYDROcodone 2021-02 Yes 4647 1{tbl} Take 1 Un pat -acetaminop 2-07 tablet by ity of hen 5-325 00:00: mouth [place] mg tablet 00 every 6 Medical (six) Branch hours as needed for Pain (scale 7-10). Indication s: acute pain polyethylen 2021-02 Yes [id number] 17g Take 1 Univers e glycol 2-07 Packet by ity of 3350 17 00:00: mouth in [place] gram powder 00 the Medical morning Branch and 1 Packet in the evening. As needed HYDROcodone 2021-02 Yes 4647 1{tbl} Take 1 Un pat -acetaminop 2-07 tablet by ity of hen 5-325 00:00: mouth [place] mg tablet 00 every 6 Medical (six) Branch hours as needed for Pain (scale 7-10). Indication s: acute pain polyethylen 2021-02 Yes [id number] 17g Take 1 Univers e glycol 2-07 Packet by ity of 3350 17 00:00: mouth in [place] gram powder 00 the Medical morning Branch and 1 Packet in the evening. As needed HYDROcodone 2021-02 Yes 4647 1{tbl} Take 1 Un pat -acetaminop 2-07 tablet by ity of hen 5-325 00:00: mouth [place] mg tablet 00 every 6 Medical (six) Branch hours as needed for Pain (scale 7-10). Indication s: acute pain polyethylen 2021-02 Yes [id number] 17g Take 1 Univers e glycol 2-07 Packet by ity of 3350 17 00:00: mouth in [place] gram powder 00 the Medical morning Branch and 1 Packet in the evening. As needed HYDROcodone 2021-02 Yes 4647 1{tbl} Take 1 Un pat -acetaminop 2-07 tablet by ity of hen 5-325 00:00: mouth [place] mg tablet 00 every 6 Medical (six) Branch hours as needed for Pain (scale 7-10). Indication s: acute pain aspirin 2021-02- Yes [id number] 325mg Take 1 Univers E.C. 325 mg 03-14 74900 tablet by i ty of EC tablet 00:00: 05:59 mouth in [place] 00 :00 the Medical morning Branch and 1 tablet in the evening. Do all this for 27 days. aspirin 2021-02- Yes [id number] 325mg Take 1 Univers E.C. 325 mg 03-14 [id number] tablet by i ty of EC tablet 00:00: 05:59 mouth in [place] 00 :00 the Medical morning Branch and 1 tablet in the evening. Do all this for 27 days. aspirin 2021-02- Yes [id number] 325mg Take 1 Univers E.C. 325 mg 03-14 [id number] tablet by i ty of EC tablet 00:00: 05:59 mouth in [place] 00 :00 the Medical morning Branch and 1 tablet in the evening. Do all this for 27 days. aspirin 2021-02- Yes [id number] 325mg Take 1 Univers E.C. 325 mg 03-14 93200 tablet by i ty of EC tablet 00:00: 05:59 mouth in [place] 00 :00 the Medical morning Branch and 1 tablet in the evening. Do all this for 27 days. aspirin 2021-02- Yes [id number] 325mg Take 1 Univers E.C. 325 mg 03-14 [id number] tablet by i ty of EC tablet 00:00: 05:59 mouth in [place] 00 :00 the Medical morning Branch and 1 tablet in the evening. Do all this for 27 days. aspirin 2021-02- Yes [id number] 325mg Take 1 Univers E.C. 325 mg 03-14 [id number] tablet by i ty of EC tablet 00:00: 05:59 mouth in [place] 00 :00 the Medical morning Branch and 1 tablet in the evening. Do all this for 27 days. aspirin 2021-02- Yes [id number] 325mg Take 1 Univers E.C. 325 mg 03-14 [id number] tablet by i ty of EC tablet 00:00: 05:59 mouth in [place] 00 :00 the Medical morning Branch and 1 tablet in the evening. Do all this for 27 days. polyethylen 2021-02 Yes 17g 17 g, Unive rs e glycol 2-06 Oral, ity of 3350 powder 23:45: [place] 17 [place] 00 First dose Medical on [facility] 01/10/22 at 1745, Until Discontinu ed, Routine enoxaparin 2021-02 Yes 40mg 40 mg, Unive rs (LOVENOX) 2-06 Subcutaneo ity of injection 22:15: us, Q24H, [place] 40 mg 00 First dose Medical on [facility] 01/10/22 at 1615, Until Discontinu ed, Routine enoxaparin 2021-02 Yes 40mg 40 mg, Unive rs (LOVENOX) 2- Subcutaneo ity of injection 22:15: us, Q24H, [place] 40 mg 00 First dose Medical on [facility] 01/10/22 at 1615, Until Discontinu ed, Routine HYDROcodone 2021-02 Yes 1{tbl} 1 tablet, Univers -acetaminop 2-06 Oral, ity of hen (NOR[place] 19:11: Q6HPRN, [place] 5) 5-325 mg 15 Starting Medi [place] tablet 1 on [facility] tablet 01/10/22 at 1311, Until Discontinu ed, Routine, Pain (scale 7-10) HYDROcodone 2021-02 Yes 1{tbl} 1 tablet, Univers -acetaminop 2-06 Oral, ity of hen (NORCO 19:11: Q6HPRN, [place] 5) 5-325 mg 15 Starting Medi doyle tablet 1 on [facility] tablet 01/10/22 at 1311, Until Discontinu ed, Routine, Pain (scale 7-10) cefTRIAXone 2021-02- Yes 1000mg 1,000 mg, Univers (ROCEPHIN) 03-13 IV ity of 1,000 mg in 16:30: 16:29 [place], [place] NaCl 0.9% 00 :00 Q24H ABX, Medic al (NS) 50 mL 5 doses, Branc h MINI-BAG First dose on Sun01/10/22 at 1030, Last dose on Sun01/14/22 at 1030, Administer over 30 Minutes, 50 mL
Reas on for Anti-Infec tive: Empiric Therapy for Suspected Infection< br>Empiric Therapy Site: Urine
D uration of therapy: 72 hours cefTRIAXone 2021-02- Yes 1000mg 1,000 mg, Univers (ROCEPHIN) 03-13 IV ity of 1,000 mg in 16:30: 16:29 [place], [place] NaCl 0.9% 00 :00 Q24H ABX, Medic al (NS) 50 mL 5 doses, Branc h MINI-BAG First dose on Sun01/10/22 at 1030, Last dose on Sun01/14/22 at 1030, Administer over 30 Minutes, 50 mL
Reas on for Anti-Infec tive: Empiric Therapy for Suspected Infection< br>Empiric Therapy Site: Urine
D uration of therapy: 72 hours tamsulosin 2021-02 Yes .4mg 0.4 mg, Univ ers (FLOMAX) 2-06 Oral, ity of capsule 0.4 15:00: DAILY, [place] mg 00 First dose Medical on [facility] 01/10/22 at 0900, Until Discontinu ed, Routine DULoxetine 2021-02 Yes 60mg 60 mg, Unive rs (CYMBALTA) 2-06 Oral, ity of capsule 60 15:00: DAILY, [place] mg 00 First dose Medical on [facility] 01/10/22 at 0900, Until Discontinu ed, Routine amiodarone 2021-02 Yes 200mg 200 mg, Uni vers (PACERONE) 2- Oral, ity of tablet 200 15:00: DAILY, [place] mg 00 First dose Medical on [facility] 01/10/22 at 0900, Until Discontinu ed, Routine tamsulosin 2021-02 Yes .4mg 0.4 mg, Univ ers (FLOMAX) 2- Oral, ity of capsule 0.4 15:00: [place]ILY, [place] 00 First dose Medical on [facility] 01/10/22 at 0900, Until Discontinu ed, Routine DULoxetine 2021-02 Yes 60mg 60 mg, Unive rs (CYMBALTA) 2-06 Oral, ity of capsule 60 15:00: DAILY, [place] mg 00 First dose Medical on [facility] 01/10/22 at 0900, Until Discontinu ed, Routine amiodarone 2021-02 Yes 200mg 200 mg, Uni vers (PACERONE) 2-06 Oral, ity of tablet 200 15:00: DAILY, [place] mg 00 First dose Medical on [facility] 01/10/22 at 0900, Until Discontinu ed, Routine levothyroxi 2021-02 Yes 25ug 25 mcg, Uni vers ne 2-06 Oral, ity of (SYNTHROID) 12:00: QAM-0600, [place] tablet 25 00 First dose Medi doyle mcg on [facility] 01/10/22 at 0600, Until Discontinu ed, Routine levothyroxi 2021-02 Yes 25ug 25 mcg, Uni vers ne 2-06 Oral, ity of (SYNTHROID) 12:00: QAM-0600, [place] tablet 25 00 First dose Medi doyle mcg on [facility] 01/10/22 at 0600, Until Discontinu ed, Routine traZODone 2021-02- No 100mg 100 mg, Uni vers (DESYREL) 2-07 17- Oral, ity of tablet 100 10:30: 09:47 ONCE, 1 [place] mg 00 :00 dose, On Medical [facility] 01/10/22 at 0430, Routine traZODone 2021-02- No 100mg 100 mg, Uni vers (DESYREL) 2- Oral, ity of tablet 100 10:30: 09:47 ONCE, 1 [place] mg 00 :00 dose, On [facility] 01/10/22 at 0430, Routine Sliding 2021-[address] [facility] ers Scale 2-06 us, TID ity of Insulin - 03:00: MEALS+HS, [place] as Lispro 00 First dose Medical (HumaLOG) + on [facility] 01/09/22 at Testing 2100, Until Discontinu ed, Routine traZODone 2021-02 Yes 200mg 200 mg, Univ ers (DESYREL) 2-06 Oral, QHS, ity of tablet 200 03:00: First dose [place] mg 00 on [facility] 01/09/22 at Branch 2100, Until Discontinu ed, Routine Sliding 2021-02 [address] Subcutaneo [facility] ers Scale 2-06 us, TID ity of Insulin - 03:00: MEALS+HS, [place] Lispro 00 First dose Medical (HumaLOG) + on [facility] 01/09/22 at Testing 2100, Until Discontinu ed, Routine traZODone 2021-02 Yes 200mg 200 mg, Univ ers (DESYREL) 2-06 Oral, QHS, ity of tablet 200 03:00: First dose [place] mg 00 on [facility] 01/09/22 at Branch 2100, Until Discontinu ed, Routine docusate 2021-02 Yes 100mg 100 mg, Unive rs (COLACE) 2-06 Oral, ity of capsule 100 02:00: Q12H, [place] mg 00 First dose Medical on [facility] 01/09/22 at 2000, Until Discontinu ed, Routine docusate 2021-02 Yes 100mg 100 mg, Unive rs (COLACE) 2-06 Oral, ity of capsule 100 02:00: Q12H, [place] mg 00 First dose Medical on [facility] 01/09/22 at 2000, Until Discontinu ed, Routine glucagon 2021-02 Yes 1mg 1 mg, Univers (GLUCAGEN 2-06 Intramuscu ity of DIAGNOSTIC 01:06: [place], PRN, [place] KIT) 23 Starting Medical injection 1 on [facility] 01/09/22 at 1906, Until Discontinu ed, ANNA, Blood Glucose < or = 70 mg/dL and patient is unable to swallow or has mental changes. dextrose 50 2021-02 Yes 25mL 25 mL, Univ ers % in water 2-06 Slow IV ity of (D50W) 01:06: Push, PRN, [place] injection 23 Starting Medica l 25 mL on [facility] 01/09/22 at 1906, Until Discontinu ed, ANNA, Blood Glucose < or = 70 mg/dL and patient is unable to swallow or has mental status changes. glucagon 2021-02 Yes 1mg 1 mg, Univers (GLUCAGEN 2-06 Intramuscu ity of DIAGNOSTIC 01:06: lar, PRN, [place] KIT) 23 Starting Medical injection 1 on [facility] 01/09/22 at 1906, Until Discontinu ed, ANNA, Blood Glucose < or = 70 mg/dL and patient is unable to swallow or has mental changes. dextrose 50 2021-02 Yes 25mL 25 mL, Univ ers % in water 2-06 Slow IV ity of (D50W) 01:06: Push, PRN, [place] injection 23 Starting Medica l 25 mL on [facility] 01/09/22 at 1906, Until Discontinu ed, ANNA, Blood Glucose < or = 70 mg/dL and patient is unable to swallow or has mental status changes. carvediloL 2021-02 Yes 25mg 25 mg, Unive rs (COREG) 2-05 Oral, BID ity of tablet 25 23:00: MEALS, [place] mg 00 First dose Medical on [facility] 01/09/22 at 1700, Until Discontinu ed, Routine carvediloL 2021-02 Yes 25mg 25 mg, Unive rs (COREG) 03-12 Oral, BID ity of tablet 25 23:00: MEALS, [place] mg 00 First dose Medical on Sun01/09/22 at 1700, Until Discontinu ed, Routine ceFAZolin 2021-02 No 1g 1 g, IV Univ ers (ANCEF) 1 g 03-12 Piggyback, i ty of in NaCl 23:00: 06:35 Q8H ABX, 2 [place] 0.9% (NS) 00 :00 doses, Medical 50 mL First dose Branch MINI-BAG on Sun01/09/22 at 1700, Last dose on Sun01/10/22 at 0100, Administer over 30 Minutes, 50 mL
Reas on for Anti-Infec tive: Surgical Prophylaxi s
Surgi doyle Prophylaxi s: Orthopaedi c
Durat ion of therapy: within 24 hours of surgery aspirin 2021-02 No 325mg 325 mg, Unive rs E.C. 03-12 Oral, BID ity of (ECOTRIN) 23:00: 21:00 MEALS, 56 [place] tablet 325 00 :29 doses, Medical mg First dose Branch on Sun01/09/22 at 1700, Last dose on Sun02/06/22 at 0800, Routine ceFAZolin 2021-02 No 1g 1 g, IV Univ ers (ANCEF) 1 g 03-12 Piggyback, i ty of in NaCl 23:00: 06:35 Q8H ABX, 2 [place] 0.9% (NS) 00 :00 doses, Medical 50 mL First dose Branch MINI-BAG on Sun01/09/22 at 1700, Last dose on Sun01/10/22 at 0100, Administer over 30 Minutes, 50 mL
Reas on for Anti-Infec tive: Surgical Prophylaxi s
Surgi doyle Prophylaxi s: Orthopaedi c
Durat ion of therapy: within 24 hours of surgery aspirin 2021-02 No 325mg 325 mg, Unive rs E.C. 03-12 Oral, BID ity of (ECOTRIN) 23:00: 21:00 [place]ALS, 56 [place] tablet 325 00 :29 doses, Medical mg First dose Branch on Sun01/09/22 at 1700, Last dose on Sun02/06/22 at 0800, Routine traZODone 2021-02 Yes 200mg Take 200 Uni vers 150 mg 2-05 mg by ity of tablet 18:52: mouth in [place] [address] the Medical morning. Branch Take 2 tablets by mouth at bedtime, May take an additional tablet in the middle of the night. traZODone 2021-02 Yes 200mg Take 200 Uni vers 150 mg 2-05 mg by ity of tablet 18:52: mouth in [place] 55 the Medical morning. Branch Take 2 tablets by mouth at bedtime, May take an additional tablet in the middle of the night. lactated 2021-02- No 1000mL at 75 Unive rs ringers IV 2-05 12-06 mL/hr, ity of infusion 16:15: 15:25 1,000 mL, [place] as 1,000 mL 00 :26 IV Medical Infusion, Branch CONTINUOUS , Starting on Sun01/09/22 at 1015, Until Tu01/10/22 at 0925, Routine, PACU lactated 2021-02- No 1000mL at 75 Unive rs ringers IV 2-05 12-06 mL/hr, ity of infusion 16:15: 15:25 1,000 mL, [place] as 1,000 mL 00 :26 IV Medical Infusion, Branch CONTINUOUS , Starting on Sun01/09/22 at 1015, Until Tu01/10/22 at 0925, Routine, PACU FENTanyl PF 2021-02 Yes 25ug 25 mcg, Uni vers (SUBLIMAZE 2-05 Slow IV ity of (PF)) 15:49: Push, [place] injection 16 Q4HPRN, Medical 25 mcg Starting Branch on Sun01/09/22 at 0949, Until Discontinu ed, Routine, For pain unrelieved by oral medication s, or if patient is unable to tolerate oral pain medication . FENTanyl PF 2021-02 Yes 25ug 25 mcg, Uni vers (SUBLIMAZE 2-05 Slow IV ity of (PF)) 15:49: Push, [place] injection 16 Q4HPRN, Medical 25 mcg Starting Branch on Sun01/09/22 at 0949, Until Discontinu ed, Routine, For pain unrelieved by oral medication s, or if patient is unable to tolerate oral pain medication . ondansetron 2021-02 Yes 4mg 4 mg, Slow Univers (ZOFRAN 2-05 IV Push, ity of (PF)) 15:48: Q6HPRN, [place] injection 4 42 Starting Medi doyle mg on Sun Branch 01/09/22 at 0948, Until Discontinu ed, Routine, Nausea and Vomiting (N/V) ondansetron 2021-02 Yes 4mg 4 mg, Slow Univers (ZOFRAN 2-05 IV Push, ity of (PF)) 15:48: Q6HPRN, [place] injection 4 42 Starting Medi doyle mg on [facility] 01/09/22 at 0948, Until Discontinu ed, Routine, Nausea and Vomiting (N/V) sodium 2021-02- No PRN, Univers chloride 03-12 Starting ity of 0.9 % 14:24: 16:17 on [facility] irrigation 00 :22 01/09/22 at [facility] ical solution 0824, Branch Until Sun01/09/22 at 1017, Intra-op bupivacaine 2021-02- No PRN, Unive rs (preserv 03-12 Starting ity of free) 14:24: 16:17 on [facility] (SENSORCAIN 00 :22 01/09/22 at Ri dical E MPF) 0.25 0824, Branch % (2.5 Intra-op mg/mL) 30 mL, bupivacaine liposome (PF) (EXPAREL (PF)) 1.3 % (13.3 mg/mL) 266 mg, NaCl 0.9% (NS) 70 mL lactated 2021-02- No 1000mL at 42 Unive rs ringers IV 03-12 12-06 mL/hr, ity of infusion 13:00: 01:00 1,000 mL, [place] as 1,000 mL 00 :00 IV Medical Infusion, Branch ONCE, 1 dose, On Sun01/09/22 at 0700, Routine, DSU Pre-op lactated 2021-02- No 1000mL at 42 Unive rs ringers IV 03-12 12-06 mL/hr, ity of infusion 13:00: 01:00 1,000 mL, [place] as 1,000 mL 00 :00 IV Medical Infusion, Branch ONCE, 1 dose, On 01/09/22 at 0700, Routine, DSU Pre-op oxyCODONE-a 2021-02 No 2{tbl} 2 tablet, Univers cetaminophe 03-12 Oral, ity of n 13:00: 13:04 ONCE, 1 [place] (PERCOCET) 00 :00 dose, On Medic al 5-325 mg Mon Branch per tablet 01/09/22 at 2 tablet 0700, Routine, DSU Pre-op celecoxib 2021-02- No 400mg 400 mg, Uni vers (CELEBREX) 03-12 Oral, ity of capsule 400 13:00: 13:05 ONCE, 1 [place] mg 00 :00 dose, On Medical [facility] Branch 01/09/22 at 0700, Routine, DSU Pre-op gabapentin 2021-02 No 300mg 300 mg, Un pat (NEURONTIN) 03-12 Oral, ity of tablet 300 13:00: 13:00 ONCE, 1 [place] mg 00 :00 dose, On [facility] Branch 01/09/22 at 0700, Routine, DSU Pre-op oxyCODONE-a 2021-02 No 2{tbl} 2 tablet, Univers cetaminophe 03-12 Oral, ity of n 13:00: 13:04 ONCE, 1 [place] (PERCOCET) 00 :00 dose, On Medic al 5-325 mg Mon Branch per tablet 01/09/22 at 2 tablet 0700, Routine, DSU Pre-op celecoxib 2021-02 No 400mg 400 mg, Uni vers (CELEBREX) 03-12 Oral, ity of capsule 400 13:00: 13:05 ONCE, 1 [place] mg 00 :00 dose, On [facility] Branch 01/09/22 at 0700, Routine, DSU Pre-op gabapentin 2021-02 No 300mg 300 mg, Un pat (NEURONTIN) 03-12 Oral, ity of tablet 300 13:00: 13:00 ONCE, 1 [place] mg 00 :00 dose, On [facility] Branch 01/09/22 at 0700, Routine, DSU Pre-op glimepiride 2021-02 Yes 1mg Take 1 mg U nivers 1 mg tablet 2-05 by mouth ity of 09:51: daily with [place] 20 breakfast. Medical Branch amiodarone 2021-02 Yes 200mg Take 200 Un pat 200 mg 2-05 mg by ity of tablet 09:51: mouth [place] 20 daily. Medical Branch carvediloL 2021-02 Yes 25mg Take 25 mg U nivers 25 mg 2-05 by mouth 2 ity of tablet 09:51: (two) [place] 20 times Medical daily with Branch meals. DULoxetine 2021-02 Yes 60mg Take 60 mg U nivers 60 mg 2-05 by mouth ity of capsule 09:51: daily. [address] ferrous 2021-02 Yes 325mg Take 325 Unive rs sulfate 325 2-05 mg by ity of mg (65 mg 09:51: mouth 2 [place] iron) EC 20 (two) Medical tablet times Branch daily with meals. gabapentin 2021-02 Yes 400mg Take 400 Un pat 400 mg 2-05 mg by ity of capsule 09:51: mouth 2 [place] 20 (two) Medical times Branch daily. omeprazole 2021-02 Yes 20mg Take 20 mg U nivers 20 mg 2-05 by mouth ity of capsule 09:51: daily. [address] tamsulosin 2021-02 Yes Take by Univ ers 0.4 mg 24 2-05 mouth ity of hr capsule 09:51: daily. [address] glimepiride 2021-02 Yes 1mg Take 1 mg U nivers 1 mg tablet 2-05 by mouth ity of 09:51: daily with [place] 20 breakfast. Medical Branch amiodarone 2021-02 Yes 200mg Take 200 Un pat 200 mg 2-05 mg by ity of tablet 09:51: mouth [place] 20 daily. Medical Branch carvediloL 2021-02 Yes 25mg Take 25 mg U nivers 25 mg 2-05 by mouth 2 ity of tablet 09:51: (two) [place] 20 times Medical daily with Branch meals. DULoxetine 2021-02 Yes 60mg Take 60 mg U nivers 60 mg 2-05 by mouth ity of capsule 09:51: daily. [address] ferrous 2022-1 Yes 325mg Take 325 Unive rs sulfate 325 2-05 mg by ity of mg (65 mg 09:51: mouth 2 [place] iron) EC 20 (two) Medical tablet times Branch daily with meals. gabapentin 2021-02 Yes 400mg Take 400 Un pat 400 mg 2-05 mg by ity of capsule 09:51: mouth 2 [place] 20 (two) Medical times Branch daily. omeprazole 2021-02 Yes 20mg Take 20 mg U nivers 20 mg 2-05 by mouth ity of capsule 09:51: daily. [address] Branch tamsulosin 2021-02 Yes Take by Univ ers 0.4 mg 24 2-05 mouth ity of hr capsule 09:51: daily. [address] Branch glimepiride 2021-02 Yes 1mg Take 1 mg U nivers 1 mg tablet 2-05 by mouth ity of 06:56: daily with [place] [address] breakfast. Medical Branch amiodarone 2021-02 Yes 200mg Take 200 Un pat 200 mg 2-05 mg by ity of tablet 06:56: mouth [place] [address] daily. Medical Branch carvediloL 2021-02 Yes 25mg Take 25 mg U nivers 25 mg 2-05 by mouth 2 ity of tablet 06:56: (two) [place] [address] times [facility] daily with Branch meals. DULoxetine 2021-02 Yes 60mg Take 60 mg U nivers 60 mg 2-05 by mouth ity of capsule 06:56: daily. [address] ferrous 2021-02 Yes 325mg Take 325 Unive rs sulfate 325 2-05 mg by ity of mg (65 mg 06:56: mouth 2 [place] iron) EC 20 (two) Medical tablet times Branch daily with meals. gabapentin 2021-02 Yes 400mg Take 400 Un pat 400 mg 2-05 mg by ity of capsule 06:56: mouth 2 [place] 20 (two) Medical times Branch daily. omeprazole 2021-02 Yes 20mg Take 20 mg U nivers 20 mg 2-05 by mouth ity of capsule 06:56: daily. [address] tamsulosin 2021-02 Yes Take by Univ ers 0.4 mg 24 2-05 mouth ity of hr capsule 06:56: daily. [address] traZODone 2021-02 Yes 150mg Take 150 Uni vers 150 mg 1-28 mg by ity of tablet 14:36: mouth in [place] [address] the Medical morning. Branch At traZODone 2021-02 Yes 150mg Take 150 Uni vers 150 mg 1-28 mg by ity of tablet 14:36: mouth in [place] [address] the Medical morning. Branch At traZODone 2021-02 Yes 150mg Take 150 Uni vers 150 mg 1-28 mg by ity of tablet 14:36: mouth in [place] [address] the Medical morning. Branch At glimepiride 2021-02 Yes 1mg Take 1 mg U nivers 1 mg tablet 1-28 by mouth ity of 14:26: daily with [place] [address] breakfast. Medical Branch amiodarone 2021-02 Yes 200mg Take 200 Un pat 200 mg 1-28 mg by ity of tablet 14:26: mouth [place] [address] daily. Medical Branch carvediloL 2021-02 Yes 25mg Take 25 mg U nivers 25 mg 1-28 by mouth 2 ity of tablet 14:26: (two) [place] [address] times [facility] daily with Branch meals. DULoxetine 2021-02 Yes 60mg Take 60 mg U nivers 60 mg 1-28 by mouth ity of capsule 14:26: daily. Medical Branch ferrous 2021-02 Yes 325mg Take 325 Unive rs sulfate 325 1-28 mg by ity of mg (65 mg 14:26: mouth 2 [facility]) [facility] (two) Medical tablet times [place] daily with meals. gabapentin 2021-02 Yes 400mg Take 400 Un pat 400 mg 1-28 mg by ity of capsule 14:26: mouth 2 [place] 07 (two) Medical times Branch daily. omeprazole 2021-02 Yes 20mg Take 20 mg U nivers 20 mg 1-28 by mouth ity of capsule 14:26: daily. Medical Branch tamsulosin 2021-02 Yes Take by Univ ers 0.4 mg 24 1-28 mouth ity of hr capsule 14:26: daily. Medical Branch glimepiride 2021-02 Yes 1mg Take 1 mg U nivers 1 mg tablet 1-28 by mouth ity of 14:26: daily with [place] [address] breakfast. Medical Branch amiodarone 2021-02 Yes 200mg Take 200 Un pat 200 mg 1-28 mg by ity of tablet 14:26: mouth [place] [address] daily. Medical Branch carvediloL 2021-02 Yes 25mg Take 25 mg U nivers 25 mg 1-28 by mouth 2 ity of tablet 14:26: (two) [place] [address] times Medical daily with Branch meals. DULoxetine 2021-02 Yes 60mg Take 60 mg U nivers 60 mg 1-28 by mouth ity of capsule 14:26: daily. Medical Branch ferrous 2021-02 Yes 325mg Take 325 Unive rs sulfate 325 1-28 mg by ity of mg (65 mg 14:26: mouth 2 [place] iron) EC 07 (two) Medical tablet times Branch daily with meals. gabapentin 2021-02 Yes 400mg Take 400 Un pat 400 mg 1-28 mg by ity of capsule 14:26: mouth 2 [place] [address] (two) Medical times Branch daily. omeprazole 2021-02 Yes 20mg Take 20 mg U nivers 20 mg 1-28 by mouth ity of capsule 14:26: daily. Medical Branch tamsulosin 2021-02 Yes Take by Univ ers 0.4 mg 24 1-28 mouth ity of hr capsule 14:26: daily. Medical Branch glimepiride 2021-02 Yes 1mg Take 1 mg U nivers 1 mg tablet 1-28 by mouth ity of 14:26: daily with [place] [address] breakfast. Medical Branch amiodarone 2021-02 Yes 200mg Take 200 Un pat 200 mg 1-28 mg by ity of tablet 14:26: mouth [place] 07 daily. Medical Branch carvediloL 2021-02 Yes 25mg Take 25 mg U nivers 25 mg 1-28 by mouth 2 ity of tablet 14:26: (two) [place] [address] times Medical daily with Branch meals. DULoxetine 2021-02 Yes 60mg Take 60 mg U nivers 60 mg 1-28 by mouth ity of capsule 14:26: daily. Medical Branch ferrous 2021-02 Yes 325mg Take 325 Unive rs sulfate 325 1-28 mg by ity of mg (65 mg 14:26: mouth 2 [place] iron) EC 07 (two) Medical tablet times Branch daily with meals. gabapentin 2021-02 Yes 400mg Take 400 Un pat 400 mg 1-28 mg by ity of capsule 14:26: mouth 2 [place] [address] (two) Medical times Branch daily. omeprazole 2021-02 Yes 20mg Take 20 mg U nivers 20 mg 1-28 by mouth ity of capsule 14:26: daily. Medical Branch tamsulosin 2021-02 Yes Take by Univ ers 0.4 mg 24 1-28 mouth ity of hr capsule 14:26: daily. Medical Branch glimepiride 2021-02 Yes 1mg Take 1 mg U nivers 1 mg tablet 1-28 by mouth ity of 14:26: daily with breakfast. Medical Branch amiodarone 2021-02 Yes 200mg Take 200 Un pat 200 mg 1-28 mg by ity of tablet 14:26: mouth [place] daily. Medical Branch carvediloL 2021-02 Yes 25mg Take 25 mg U nivers 25 mg 1-28 by mouth 2 ity of tablet 14:26: (two) times Medical daily with Branch meals. DULoxetine 2021-02 Yes 60mg Take 60 mg U nivers 60 mg 1-28 by mouth ity of capsule 14:26: daily. Medical Branch ferrous 2021-02 Yes 325mg Take 325 Unive rs sulfate 325 1-28 mg by ity of mg (65 mg 14:26: mouth 2 [place] iron) 07 (two) Medical tablet times Branch daily with meals. gabapentin 2021-02 Yes 400mg Take 400 Un pat 400 mg 1-28 mg by ity of capsule 14:26: mouth 2 [place] 07 (two) Medical times Branch daily. omeprazole 2021-02 Yes 20mg Take 20 mg U nivers 20 mg 1-28 by mouth ity of capsule 14:26: daily. Medical Branch tamsulosin 2021-02 Yes Take by [facility] ers 0.4 mg 24 1-28 mouth ity of hr capsule 14:26: daily. Medical Branch glimepiride 2021-02 Yes 1mg Take 1 mg U nivers 1 mg tablet 1-28 by mouth ity of 14:26: daily with breakfast. Medical Branch amiodarone 2021-02 Yes 200mg Take 200 Un pat 200 mg 1-28 mg by ity of tablet 14:26: mouth [place] daily. Medical Branch carvediloL 2021-02 Yes 25mg Take 25 mg U nivers 25 mg 1-28 by mouth 2 ity of tablet 14:26: (two) [place] [address] times Medical daily with Branch meals. DULoxetine 2021-02 Yes 60mg Take 60 mg U nivers 60 mg 1-28 by mouth ity of capsule 14:26: daily. [place] [address] Medical Branch ferrous 2021-02 Yes 325mg Take 325 Unive rs sulfate 325 1-28 mg by ity of mg (65 mg 14:26: mouth 2 [place] iron) EC 07 (two) Medical tablet times Branch daily with meals. gabapentin 2021-02 Yes 400mg Take 400 Un pat 400 mg 1-28 mg by ity of capsule 14:26: mouth 2 [place] [address] (two) Medical times Branch daily. omeprazole 2021-02 Yes 20mg Take 20 mg U nivers 20 mg 1-28 by mouth ity of capsule 14:26: daily. [address] Branch tamsulosin 2021-02 Yes Take by Univ ers 0.4 mg 24 1-28 mouth ity of hr capsule 14:26: daily. [place] [address] Medical Branch glimepiride 2021-02 Yes 1mg Take 1 mg U nivers 1 mg tablet 1-28 by mouth ity of 14:26: daily with [place] [address] breakfast. Medical Branch amiodarone 2021-02 Yes 200mg Take 200 Un pat 200 mg 1-28 mg by ity of tablet 14:26: mouth [place] [address] daily. Medical Branch carvediloL 2021-02 Yes 25mg Take 25 mg U nivers 25 mg 1-28 by mouth 2 ity of tablet 14:26: (two) [place] [address] times Medical daily with Branch meals. DULoxetine 2021-02 Yes 60mg Take 60 mg U nivers 60 mg 1-28 by mouth ity of capsule 14:26: daily. Medical Branch ferrous 2021-02 Yes 325mg Take 325 Unive rs sulfate 325 1-28 mg by ity of mg (65 mg 14:26: mouth 2 [place] iron) [facility] (two) Medical tablet times Branch daily with meals. gabapentin 2021-02 Yes 400mg Take 400 Un pat 400 mg 1-28 mg by ity of capsule 14:26: mouth 2 [place] [address] (two) Medical times Branch daily. omeprazole 2021-02 Yes 20mg Take 20 mg U nivers 20 mg 1-28 by mouth ity of capsule 14:26: daily. [place] [address] Medical Branch tamsulosin 2021-02 Yes Take by Univ ers 0.4 mg 24 1-28 mouth ity of hr capsule 14:26: daily. [place] 07 [facility] SITagliptin 2021-02 No 50mg Take 50 mg Univers (JANUVIA) 02-25 by mouth ity o f 50 mg 10:32: 00:00 daily. [place] tablet 23 :00 [facility] SITagliptin 2021-02- No 50mg Take 50 mg Univers (JANUVIA) 02-25 by mouth ity o f 50 mg 10:32: 00:00 daily. [place] tablet 23 :00 [facility] SITagliptin 2021-02 No 50mg Take 50 mg Univers (JANUVIA) 02-25 by mouth ity o f 50 mg 10:32: 00:00 daily. [place] tablet 23 :00 [facility] SITagliptin 2021-02 No 50mg Take 50 mg Univers (JANUVIA) 02-25 by mouth ity o f 50 mg 10:32: 00:00 daily. [place] tablet 23 :00 [facility] traZODone 2021-02 Yes [id number] 200mg Take 2 Univers 100 mg 1-21 tablets by ity of tablet 00:00: mouth at [place] 00 bedtime. Medical May take Branch additional tablet in the middle of the night polyethylen 2021-02 Yes [id number] 17g Take 1 Univers e glycol 1-21 Packet by ity of 3350 17 00:00: mouth in [place] gram powder 00 the Medical morning Branch and 1 Packet in the evening. SITagliptin 2021-02 Yes [id number] 50mg Take 1 Univers (JANUVIA) 1-21 tablet by ity o f 50 mg 00:00: mouth in [place] tablet 00 the Medical morning. Branch traZODone 2021-02 Yes [id number] 200mg Take 2 Univers 100 mg 1-21 tablets by ity of tablet 00:00: mouth at [place] 00 bedtime. Medical May take Branch additional tablet in the middle of the night polyethylen 2021-02 Yes [id number] 17g Take 1 Univers e glycol 1-21 Packet by ity of 3350 17 00:00: mouth in [place] gram powder 00 the Medical morning Branch and 1 Packet in the evening. SITagliptin 2021-02 Yes [id number] 50mg Take 1 Univers (JANUVIA) 1-21 tablet by ity o f 50 mg 00:00: mouth in [place] tablet 00 the Medical morning. Branch traZODone 2021-02 Yes [id number] 200mg Take 2 Univers 100 mg 1-21 tablets by ity of tablet 00:00: mouth at [place] 00 bedtime. Medical May take Branch additional tablet in the middle of the night polyethylen 2021-02 Yes [id number] 17g Take 1 Univers e glycol 1-21 Packet by ity of 3350 17 00:00: mouth in [place] gram powder 00 the Medical morning Branch and 1 Packet in the evening. SITagliptin 2021-02 Yes [id number] 50mg Take 1 Univers (JANUVIA) 1-21 tablet by ity o f 50 mg 00:00: mouth in [place] tablet 00 the Medical morning. Branch traZODone 2021-02 Yes [id number] 200mg Take 2 Univers 100 mg 1-21 tablets by ity of tablet 00:00: mouth at [place] 00 bedtime. Medical May take Branch additional tablet in the middle of the night polyethylen 2021-02 Yes [id number] 17g Take 1 Univers e glycol 1-21 Packet by ity of 3350 17 00:00: mouth in [place] gram powder 00 the Medical morning Branch and 1 Packet in the evening. SITagliptin 2021-02 Yes [id number] 50mg Take 1 Univers (JANUVIA) 1-21 tablet by ity o f 50 mg 00:00: mouth in [place] tablet 00 the Medical morning. Branch traZODone 2021-02 Yes [id number] 200mg Take 2 Univers 100 mg 1-21 tablets by ity of tablet 00:00: mouth at [place] 00 bedtime. Medical May take Branch additional tablet in the middle of the night polyethylen 2021-02 Yes [id number] 17g Take 1 Univers e glycol 1-21 Packet by ity of 3350 17 00:00: mouth in [place] gram powder 00 the Medical morning Branch and 1 Packet in the evening. SITagliptin 2021-02 Yes [id number] 50mg Take 1 [facility] (JANUVIA) 1-21 tablet by ity o f 50 mg 00:00: mouth in [place] tablet 00 the Medical morning. Branch traZODone 2021-02 Yes [id number] 200mg Take 2 [facility] 100 mg 1-21 tablets by ity of tablet 00:00: mouth at [place] 00 bedtime. Medical May take Branch additional tablet in the middle of the night polyethylen 2021-02 Yes [id number] 17g Take 1 [facility] e glycol 1-21 Packet by ity of 3350 17 00:00: mouth in [place] gram powder 00 the Medical morning Branch and 1 Packet in the evening. SITagliptin 2021-02 Yes [id number] 50mg Take 1 [facility] (JANUVIA) 1-21 tablet by ity o f 50 mg 00:00: mouth in [place] tablet 00 the Medical morning. Branch traZODone 2021-02 Yes [id number] 200mg Take 2 [facility] 100 mg 1-21 tablets by ity of tablet 00:00: mouth at [place] 00 bedtime. Medical May take Branch additional tablet in the middle of the night polyethylen 2021-02 Yes [id number] 17g Take 1 [facility] e glycol 1-21 Packet by ity of 3350 17 00:00: mouth in [place] gram powder 00 the Medical morning Branch and 1 Packet in the evening. SITagliptin 2021-02 Yes [id number] 50mg Take 1 [facility] (JANUVIA) 1-21 tablet by ity o f 50 mg 00:00: mouth in [place] tablet 00 the Medical morning. Branch traZODone 2021-02 Yes [id number] 200mg Take 2 [facility] 100 mg 1-21 tablets by ity of tablet 00:00: mouth at [place] 00 bedtime. Medical May take Branch additional tablet in the middle of the night polyethylen 2021-02 Yes [id number] 17g Take 1 [facility] e glycol 1-21 Packet by ity of 3350 17 00:00: mouth in [place] gram powder 00 the Medical morning Branch and 1 Packet in the evening. SITagliptin 2021-02 Yes [id number] 50mg Take 1 [facility] (JANUVIA) 1-21 tablet by ity o f 50 mg 00:00: mouth in [place] tablet 00 the Medical morning. Branch traZODone 2021-02 Yes [id number] 200mg Take 2 [facility] 100 mg 1-21 tablets by ity of tablet 00:00: mouth at [place] 00 bedtime. Medical May take Branch additional tablet in the middle of the night polyethylen 2021-02 Yes [id number] 17g Take 1 [facility] e glycol 1-21 Packet by ity of 3350 17 00:00: mouth in [place] gram powder 00 the Medical morning Branch and 1 Packet in the evening. SITagliptin 2021-02 Yes [id number] 50mg Take 1 [facility] (JANUVIA) 1-21 tablet by ity o f 50 mg 00:00: mouth in [place] tablet 00 the Medical morning. Branch polyethylen 2021-02 Yes [id number] 17g Take 1 [facility] e glycol 1-21 Packet by ity of 3350 17 00:00: mouth in [place] gram powder 00 the Medical morning Branch and 1 Packet in the evening. SITagliptin 2021-02 Yes [id number] 50mg Take 1 [facility] (JANUVIA) 1-21 tablet by ity o f 50 mg 00:00: mouth in [place] tablet 00 the Medical morning. Branch polyethylen 2021-02 Yes [id number] 17g Take 1 [facility] e glycol 1-21 Packet by ity of 3350 17 00:00: mouth in [place] gram powder 00 the Medical morning Branch and 1 Packet in the evening. SITagliptin 2021-02 Yes [id number] 50mg Take 1 [facility] (JANUVIA) 1-21 tablet by ity o f 50 mg 00:00: mouth in [place] tablet 00 the Medical morning. Branch polyethylen 2021-02 Yes [id number] 17g Take 1 [facility] e glycol 1-21 Packet by ity of 3350 17 00:00: mouth in [place] gram powder 00 the Medical morning Branch and 1 Packet in the evening. SITagliptin 2021-02 Yes [id number] 50mg Take 1 [facility] (JANUVIA) 1-21 tablet by ity o f 50 mg 00:00: mouth in [place] tablet 00 the Medical morning. Branch polyethylen 2021-02 Yes [id number] 17g Take 1 [facility] e glycol 1-21 Packet by ity of 3350 17 00:00: mouth in [place] gram powder 00 the Medical morning Branch and 1 Packet in the evening. SITagliptin 2021-02 Yes [id number] 50mg Take 1 [facility] (JANUVIA) 1-21 tablet by ity o f 50 mg 00:00: mouth in [place] tablet 00 the Medical morning. Branch polyethylen 2021-02 Yes [id number] 17g Take 1 [facility] e glycol 1-21 Packet by ity of 3350 17 00:00: mouth in [place] gram powder 00 the Medical morning Branch and 1 Packet in the evening. SITagliptin 2021-02 Yes [id number] 50mg Take 1 [facility] (JANUVIA) 1-21 tablet by ity o f 50 mg 00:00: mouth in [place] tablet 00 the Medical morning. Branch polyethylen 2021-02 Yes [id number] 17g Take 1 [facility] e glycol 1-21 Packet by ity of 3350 17 00:00: mouth in [place] gram powder 00 the Medical morning Branch and 1 Packet in the evening. SITagliptin 2021-02 Yes [id number] 50mg Take 1 [facility] (JANUVIA) 1-21 tablet by ity o f 50 mg 00:00: mouth in [place] tablet 00 the Medical morning. Branch polyethylen 2021-02 Yes [id number] 17g Take 1 [facility] e glycol 1-21 Packet by ity of 3350 17 00:00: mouth in [place] gram powder 00 the Medical morning Branch and 1 Packet in the evening. SITagliptin 2021-02 Yes [id number] 50mg Take 1 [facility] (JANUVIA) 1-21 tablet by ity o f 50 mg 00:00: mouth in [place] tablet 00 the Medical morning. Branch polyethylen 2021-02 Yes [id number] 17g Take 1 [facility] e glycol 1-21 Packet by ity of 3350 17 00:00: mouth in [place] gram powder 00 the Medical morning Branch and 1 Packet in the evening. SITagliptin 2021-02 Yes [id number] 50mg Take 1 [facility] (JANUVIA) 1-21 tablet by ity o f 50 mg 00:00: mouth in [place] tablet 00 the Medical morning. Branch polyethylen 2021-02 Yes [id number] 17g Take 1 [facility] e glycol 1-21 Packet by ity of 3350 17 00:00: mouth in [place] gram powder 00 the Medical morning Branch and 1 Packet in the evening. SITagliptin 2021-02 Yes [id number] 50mg Take 1 [facility] (JANUVIA) 1-21 tablet by ity o f 50 mg 00:00: mouth in [place] tablet 00 the Medical morning. Branch SITagliptin 2021-02 Yes [id number] 50mg Take 1 [facility] (JANUVIA) 1-21 tablet by ity o f 50 mg 00:00: mouth in [place] tablet 00 the Medical morning. Branch SITagliptin 2021-02 Yes [id number] 50mg Take 1 [facility] (JANUVIA) 1-21 tablet by ity o f 50 mg 00:00: mouth in [place] tablet 00 the Medical morning. Branch SITagliptin 2021-02 Yes [id number] 50mg Take 1 [facility] (JANUVIA) 1-21 tablet by ity o f 50 mg 00:00: mouth in [place] tablet 00 the Medical morning. Branch SITagliptin 2021-02 Yes [id number] 50mg Take 1 [facility] (JANUVIA) 1-21 tablet by ity o f 50 mg 00:00: mouth in [place] tablet 00 the Medical morning. Branch SITagliptin 2021-02 Yes [id number] 50mg Take 1 [facility] (JANUVIA) 1-21 tablet by ity o f 50 mg 00:00: mouth in [place] tablet 00 the Medical morning. Branch SITagliptin 2021-02 Yes [id number] 50mg Take 1 [facility] (JANUVIA) 1-21 tablet by ity o f 50 mg 00:00: mouth in [place] tablet 00 the Medical morning. Branch SITagliptin 2021-02 Yes [id number] 50mg Take 1 [facility] (JANUVIA) 1-21 tablet by ity o f 50 mg 00:00: mouth in [place] tablet 00 the Medical morning. Branch polyethylen 2021-02- No [id number] 17g Take 1 [facility] e glycol 1-21 12-07 Packet by ity o f 3350 17 00:00: 00:00 mouth in [place] gram powder 00 :00 the Medical morning Branch and 1 Packet in the evening. traZODone 2021-02- No [id number] 200mg Take 2 [facility] 100 mg 1-21 11-28 tablets by ity of tablet 00:00: 00:00 mouth at [place] 00 :00 bedtime. Medical May take Branch additional tablet in the middle of the night traZODone 2021-02- No [id number] 200mg Take 2 [facility] 100 mg 1-21 11-28 tablets by ity of tablet 00:00: 00:00 mouth at [place] 00 :00 bedtime. Medical May take Branch additional tablet in the middle of the night traZODone 2021-02- No [id number] 200mg Take 2 [facility] 100 mg 1-21 11-28 tablets by ity of tablet 00:00: 00:00 mouth at [place] 00 :00 bedtime. Medical May take Branch additional tablet in the middle of the night traZODone 2021-02- No [id number] 200mg Take 2 [facility] 100 mg -26 12-28 tablets by ity of tablet 00:00: 00:00 mouth at [place] 00 :00 bedtime. Medical May take Branch additional tablet in the middle of the night traZODone 2021-02- No [id number] 200mg Take 2 [facility] 100 mg 02-25- tablets by ity of tablet 00:00: 00:00 mouth at [place] 00 :00 bedtime. Medical May take Branch additional tablet in the middle of the night traZODone 2021-02- No [id number] 200mg Take 2 [facility] 100 mg 02-25 tablets by ity of tablet 00:00: 00:00 mouth at [place] 00 :00 bedtime. Medical May take Branch additional tablet in the middle of the night celecoxib 2021-02- Yes [id number] 200mg Take 1 [facility] (CELEBREX) 02-14 [id number] capsule by i ty of 200 mg 00:00: 05:59 mouth in [place] capsule 00 :00 the [facility] for 30 days. celecoxib 2021-02- Yes [id number] 200mg Take 1 [facility] (CELEBREX) 02-14 [id number] capsule by i ty of 200 mg 00:00: 05:59 mouth in [place] capsule 00 :00 the [facility] for 30 days. celecoxib 2021-02- Yes [id number] 200mg Take 1 [facility] (CELEBREX) 02-14 [id number] capsule by i ty of 200 mg 00:00: 05:59 mouth in [place] capsule 00 :00 the [facility] for 30 days. celecoxib 2021-02- Yes [id number] 200mg Take 1 [facility] (CELEBREX) 02-14 [id number] capsule by i ty of 200 mg 00:00: 05:59 mouth in [place] capsule 00 :00 the [facility] morning [place] for 30 days. celecoxib 2021-02- Yes [id number] 200mg Take 1 [facility] (CELEBREX) 02-14 [id number] capsule by i ty of 200 mg 00:00: 05:59 mouth in [place] capsule 00 :00 the [facility] for 30 days. celecoxib 2021-02- Yes [id number] 200mg Take 1 [facility] (CELEBREX) 02-14 [id number] capsule by i ty of 200 mg 00:00: 05:59 mouth in [place] capsule 00 :00 the Medical morning Branch for 30 days. celecoxib 2021-02- Yes [id number] 200mg Take 1 [facility] (CELEBREX) 02-14 [id number] capsule by i ty of 200 mg 00:00: 05:59 mouth in [place] capsule 00 :00 the [facility] morning [place] for 30 days. celecoxib 2021-02- Yes [id number] 200mg Take 1 [facility] (CELEBREX) 02-14 [id number] capsule by i ty of 200 mg 00:00: 05:59 mouth in [place] capsule 00 :00 the [facility] morning Branch for 30 days. celecoxib 2021-02- Yes [id number] 200mg Take 1 [facility] (CELEBREX) 02-14 [id number] capsule by i ty of 200 mg 00:00: 05:59 mouth in [place] capsule 00 :00 the [facility] morning [place] for 30 days. celecoxib 2021-02- Yes [id number] 200mg Take 1 [facility] (CELEBREX) 02-14 [id number] capsule by i ty of 200 mg 00:00: 05:59 mouth in [place] capsule 00 :00 the [facility] morning Branch for 30 days. celecoxib 2021-02- Yes [id number] 200mg Take 1 [facility] (CELEBREX) 02-14 [id number] capsule by i ty of 200 mg 00:00: 05:59 mouth in [place] capsule 00 :00 the [facility] morning Branch for 30 days. celecoxib 2021-02- Yes [id number] 200mg Take 1 [facility] (CELEBREX) 02-14 [id number] capsule by i ty of 200 mg 00:00: 05:59 mouth in [place] capsule 00 :00 the [facility] morning Branch for 30 days. celecoxib 2021-02- Yes [id number] 200mg Take 1 [facility] (CELEBREX) 02-14 [id number] capsule by i ty of 200 mg 00:00: 05:59 mouth in [place] capsule 00 :00 the Medical morning Branch for 30 days. celecoxib 2021-02- Yes [id number] 200mg Take 1 [facility] (CELEBREX) 02-14 [id number] capsule by i ty of 200 mg 00:00: 05:59 mouth in [place] capsule 00 :00 the Medical morning Branch for 30 days. celecoxib 2021-02- Yes [id number] 200mg Take 1 [facility] (CELEBREX) 02-14 [id number] capsule by i ty of 200 mg 00:00: 05:59 mouth in [place] capsule 00 :00 the [facility] morning Branch for 30 days. celecoxib 2021-02- Yes [id number] 200mg Take 1 [facility] (CELEBREX) 02-14 [id number] capsule by i ty of 200 mg 00:00: 05:59 mouth in [place] capsule 00 :00 the [facility] morning [place] for 30 days. celecoxib 2021-02- Yes [id number] 200mg Take 1 [facility] (CELEBREX) 02-14 [id number] capsule by i ty of 200 mg 00:00: 05:59 mouth in [place] capsule 00 :00 the [facility] morning [place] for 30 days. celecoxib 2021-02- Yes [id number] 200mg Take 1 [facility] (CELEBREX) 02-14 [id number] capsule by i ty of 200 mg 00:00: 05:59 mouth in [place] capsule 00 :00 the [facility] morning Branch for 30 days. celecoxib 2021-02- Yes [id number] 200mg Take 1 [facility] (CELEBREX) 02-14 [id number] capsule by i ty of 200 mg 00:00: 05:59 mouth in [place] capsule 00 :00 the [facility] morning Branch for 30 days. celecoxib 2021-02- Yes [id number] 200mg Take 1 [facility] (CELEBREX) 02-14 [id number] capsule by i ty of 200 mg 00:00: 05:59 mouth in [place] capsule 00 :00 the [facility] morning Branch for 30 days. celecoxib 2021-02- Yes [id number] 200mg Take 1 [facility] (CELEBREX) 02-14 [id number] capsule by i ty of 200 mg 00:00: 05:59 mouth in [place] capsule 00 :00 the Medical morning Branch for 30 days. celecoxib 2021-02- Yes [id number] 200mg Take 1 [facility] (CELEBREX) 02-14 [id number] capsule by i ty of 200 mg 00:00: 05:59 mouth in [place] capsule 00 :00 the Medical morning Branch for 30 days. celecoxib 2021-02- Yes [id number] 200mg Take 1 [facility] (CELEBREX) 02-14 [id number] capsule by i ty of 200 mg 00:00: 05:59 mouth in [place] capsule 00 :00 the Medical morning Branch for 30 days. celecoxib 2021-02- Yes [id number] 200mg Take 1 [facility] (CELEBREX) 02-14 [id number] capsule by i ty of 200 mg 00:00: 05:59 mouth in [place] capsule 00 :00 the Medical morning Branch for 30 days. celecoxib 2021-02- Yes [id number] 200mg Take 1 [facility] (CELEBREX) 02-14 [id number] capsule by i ty of 200 mg 00:00: 05:59 mouth in [place] capsule 00 :00 the Medical morning Branch for 30 days. celecoxib 2021-02- Yes [id number] 200mg Take 1 [facility] (CELEBREX) 02-14 [id number] capsule by i ty of 200 mg 00:00: 05:59 mouth in [place] capsule 00 :00 the Medical morning Branch for 30 days. celecoxib 2021-02- Yes [id number] 200mg Take 1 [facility] (CELEBREX) 02-14 [id number] capsule by i ty of 200 mg 00:00: 05:59 mouth in [place] capsule 00 :00 the Medical morning Branch for 30 days. celecoxib 2021-02- Yes [id number] 200mg Take 1 [facility] (CELEBREX) 02-14 [id number] capsule by i ty of 200 mg 00:00: 05:59 mouth in [place] capsule 00 :00 the Medical morning Branch for 30 days. celecoxib 2021-02- Yes [id number] 200mg Take 1 [facility] (CELEBREX) 02-14 [id number] capsule by i ty of 200 mg 00:00: 05:59 mouth in [place] capsule 00 :00 the Medical morning Branch for 30 days. celecoxib 2021-02- Yes [id number] 200mg Take 1 [facility] (CELEBREX) 02-14 capsule by i ty of 200 mg 00:00: 05:59 mouth in [place] capsule 00 :00 the Medical morning Branch for 30 days. celecoxib 2021-02- No [id number] 200mg Take 1 [facility] (CELEBREX) 02-14 capsule by i ty of 200 mg 00:00: 05:59 mouth in [place] capsule 00 :00 the Medical morning Branch for 30 days. glimepiride 2021-02 Yes 1mg Take 1 mg U nivers (AMARYL) 1 09 by mouth ity o f mg tablet 14:37: daily with [place] 43 breakfast. Medical Branch amiodarone 2021-02 Yes 200mg Take 200 Un pat 200 mg 1-09 mg by ity of tablet 14:37: mouth [place] [address] daily. Medical Branch carvediloL 2021-02 Yes 25mg Take 25 mg U nivers (COREG) 25 09 by mouth 2 ity of mg tablet 14:37: (two) [address] daily with Branch meals. DULoxetine 2021-02 Yes 60mg Take 60 mg U nivers 60 mg 09 by mouth ity of capsule 14:37: daily. [address] ferrous 2021-02 Yes 325mg Take 325 Unive rs sulfate 325 -09 mg by ity of mg (65 mg 14:37: mouth 2 [facility]) 43 (two) Medical tablet times Branch daily with meals. gabapentin 2021-02 Yes 400mg Take 400 Un pat 400 mg 1-09 mg by ity of capsule 14:37: mouth 2 [place] 43 (two) Medical times Branch daily. omeprazole 2021-02 Yes 20mg Take 20 mg U nivers 20 mg 09 by mouth ity of capsule 14:37: daily. [address] tamsulosin 2021-02 Yes Take by Univ ers 0.4 mg 24 -09 mouth ity of hr capsule 14:37: daily. [address] SITagliptin 2021-02 Yes 50mg Take 50 mg [facility] (JANUVIA) 09 by mouth ity of 50 mg 14:37: daily. [address] glimepiride 2021-02 Yes 1mg Take 1 mg U nivers (AMARYL) 1 -09 by mouth ity o f mg tablet 14:37: daily with [place] 43 breakfast. Medical Branch amiodarone 2021-02 Yes 200mg Take 200 Un pat 200 mg 1-09 mg by ity of tablet 14:37: mouth [place] 43 daily. Medical Branch carvediloL 2021-02 Yes 25mg Take 25 mg U nivers (COREG) 25 1-09 by mouth 2 ity of mg tablet 14:37: (two) [address] Medical daily with Branch meals. DULoxetine 2021-02 Yes 60mg Take 60 mg U nivers 60 mg 1-09 by mouth ity of capsule 14:37: daily. [place] [address] Medical Branch ferrous 2021-02 Yes 325mg Take 325 Unive rs sulfate 325 1-09 mg by ity of mg (65 mg 14:37: mouth 2 [place] iron) 43 (two) Medical tablet times [place] daily with meals. gabapentin 2021-02 Yes 400mg Take 400 Un pat 400 mg 1-09 mg by ity of capsule 14:37: mouth 2 [place] 43 (two) Medical times Branch daily. omeprazole 2021-02 Yes 20mg Take 20 mg U nivers 20 mg 1-09 by mouth ity of capsule 14:37: daily. [address] Branch tamsulosin 2021-02 Yes Take by Univ ers 0.4 mg 24 1-09 mouth ity of hr capsule 14:37: daily. [place] [address] Medical Branch SITagliptin 2021-02 Yes 50mg Take 50 mg [facility] (JANUVIA) 1-09 by mouth ity of 50 mg 14:37: daily. [place] [address] Medical Branch glimepiride 2021-02 Yes 1mg Take 1 mg U nivers (AMARYL) 1 1-09 by mouth ity o f mg tablet 14:37: daily with [place] 43 breakfast. Medical Branch amiodarone 2021-02 Yes 200mg Take 200 Un pat 200 mg 1-09 mg by ity of tablet 14:37: mouth [place] [address] daily. Medical Branch carvediloL 2021-02 Yes 25mg Take 25 mg U nivers (COREG) 25 1-09 by mouth 2 ity of mg tablet 14:37: (two) [place] [address] times Medical daily with Branch meals. DULoxetine 2021-02 Yes 60mg Take 60 mg U nivers 60 mg 1-09 by mouth ity of capsule 14:37: daily. [address] ferrous 2021-02 Yes 325mg Take 325 Unive rs sulfate 325 1-09 mg by ity of mg (65 mg 14:37: mouth 2 [place] iron) [place] 43 (two) Medical tablet times Branch daily with meals. gabapentin 2021-02 Yes 400mg Take 400 Un pat 400 mg 1-09 mg by ity of capsule 14:37: mouth 2 [place] [address] (two) Medical times Branch daily. omeprazole 2021-02 Yes 20mg Take 20 mg U nivers 20 mg 1-09 by mouth ity of capsule 14:37: daily. [address] tamsulosin 2021-02 Yes Take by Univ ers 0.4 mg 24 1-09 mouth ity of hr capsule 14:37: daily. [address] Branch SITagliptin 2021-02 Yes 50mg Take 50 mg [facility] (JANUVIA) 1-09 by mouth ity of 50 mg 14:37: daily. [address] glimepiride 2021-02 Yes 1mg Take 1 mg U nivers (AMARYL) 1 1-09 by mouth ity o f mg tablet 14:37: daily with [place] 43 breakfast. Medical Branch amiodarone 2021-02 Yes 200mg Take 200 Un pat 200 mg 1-09 mg by ity of tablet 14:37: mouth [place] [address] daily. Medical Branch carvediloL 2021-02 Yes 25mg Take 25 mg U nivers (COREG) 25 1-09 by mouth 2 ity of mg tablet 14:37: (two) [address] daily with Branch meals. DULoxetine 2021-02 Yes 60mg Take 60 mg U nivers 60 mg 1-09 by mouth ity of capsule 14:37: daily. [address] ferrous 2021-02 Yes 325mg Take 325 Unive rs sulfate 325 1-09 mg by ity of mg (65 mg 14:37: mouth 2 [place] iron) [place] 43 (two) Medical tablet times [place] daily with meals. gabapentin 2021-02 Yes 400mg Take 400 Un pat 400 mg 1-09 mg by ity of capsule 14:37: mouth 2 [place] [address] (two) Medical times Branch daily. omeprazole 2021-02 Yes 20mg Take 20 mg U nivers 20 mg 1-09 by mouth ity of capsule 14:37: daily. [place] 43 Medical Branch tamsulosin 2021-02 Yes Take by [facility] ers 0.4 mg 24 1-09 mouth ity of hr capsule 14:37: daily. [place] [address] Medical Branch SITagliptin 2021-02 Yes 50mg Take 50 mg [facility] (JANUVIA) 1-09 by mouth ity of 50 mg 14:37: daily. [place] [address] Medical Branch glimepiride 2021-02 Yes 1mg Take 1 mg U nivers (AMARYL) 1 -09 by mouth ity o f mg tablet 14:37: daily with [place] 43 breakfast. Medical Branch amiodarone 2021-02 Yes 200mg Take 200 Un pat 200 mg 1-09 mg by ity of tablet 14:37: mouth [place] [address] daily. Medical Branch carvediloL 2021-02 Yes 25mg Take 25 mg U nivers (COREG) 25 -09 by mouth 2 ity of mg tablet 14:37: (two) [address] daily with Branch meals. DULoxetine 2021-02 Yes 60mg Take 60 mg U nivers 60 mg 09 by mouth ity of capsule 14:37: daily. [place] [address] Medical Branch ferrous 2021-02 Yes 325mg Take 325 Unive rs sulfate 325 1-09 mg by ity of mg (65 mg 14:37: mouth 2 [facility]) [facility] (two) Medical tablet times Branch daily with meals. gabapentin 2021-02 Yes 400mg Take 400 Un pat 400 mg 1-09 mg by ity of capsule 14:37: mouth 2 [place] 43 (two) Medical times Branch daily. omeprazole 2021-02 Yes 20mg Take 20 mg U nivers 20 mg -09 by mouth ity of capsule 14:37: daily. [address] tamsulosin 2021-02 Yes Take by Univ ers 0.4 mg 24 1-09 mouth ity of hr capsule 14:37: daily. [address] SITagliptin 2021-02 Yes 50mg Take 50 mg [facility] (JANUVIA) 1-09 by mouth ity of 50 mg 14:37: daily. [place] [address] Medical [place] glimepiride 2021-02 Yes 1mg Take 1 mg U nivers (AMARYL) 1 1-09 by mouth ity o f mg tablet 14:37: daily with [place] 43 breakfast. Medical Branch amiodarone 2021-02 Yes 200mg Take 200 Un pat 200 mg 1-09 mg by ity of tablet 14:37: mouth [place] [address] daily. Medical Branch carvediloL 2021-02 Yes 25mg Take 25 mg U nivers (COREG) 25 1-09 by mouth 2 ity of mg tablet 14:37: (two) [place] [address] times Medical daily with Branch meals. DULoxetine 2021-02 Yes 60mg Take 60 mg U nivers 60 mg 1-09 by mouth ity of capsule 14:37: daily. [place] [address] Medical Branch ferrous 2021-02 Yes 325mg Take 325 Unive rs sulfate 325 1-09 mg by ity of mg (65 mg 14:37: mouth 2 [place] iron) 43 (two) Medical tablet times [place] daily with meals. gabapentin 2021-02 Yes 400mg Take 400 Un pat 400 mg 1-09 mg by ity of capsule 14:37: mouth 2 [place] 43 (two) Medical times Branch daily. omeprazole 2021-02 Yes 20mg Take 20 mg U nivers 20 mg 1-09 by mouth ity of capsule 14:37: daily. [address] tamsulosin 2021-02 Yes Take by Univ ers 0.4 mg 24 1-09 mouth ity of hr capsule 14:37: daily. [address] SITagliptin 2021-02 Yes 50mg Take 50 mg [facility] (JANUVIA) 1-09 by mouth ity of 50 mg 14:37: daily. [address] glimepiride 2021-02 Yes 1mg Take 1 mg U nivers (AMARYL) 1 -09 by mouth ity o f mg tablet 14:37: daily with [facility] 43 breakfast. Medical Branch amiodarone 2021-02 Yes 200mg Take 200 Un pat 200 mg 1-09 mg by ity of tablet 14:37: mouth [place] [address] daily. Medical Branch carvediloL 2021-02 Yes 25mg Take 25 mg U nivers (COREG) 25 1-09 by mouth 2 ity of mg tablet 14:37: (two) [place] [address] times Medical daily with Branch meals. DULoxetine 2021-02 Yes 60mg Take 60 mg U nivers 60 mg 1-09 by mouth ity of capsule 14:37: daily. [address] ferrous 2021-02 Yes 325mg Take 325 Unive rs sulfate 325 1-09 mg by ity of mg (65 mg 14:37: mouth 2 [place] iron) [place] 43 (two) Medical tablet times Branch daily with meals. gabapentin 2021-02 Yes 400mg Take 400 Un pat 400 mg 1-09 mg by ity of capsule 14:37: mouth 2 [place] 43 (two) Medical times Branch daily. omeprazole 2021-02 Yes 20mg Take 20 mg U nivers 20 mg 1-09 by mouth ity of capsule 14:37: daily. [place] [address] Medical Branch tamsulosin 2021-02 Yes Take by Univ ers 0.4 mg 24 1-09 mouth ity of hr capsule 14:37: daily. [place] [address] Medical Branch SITagliptin 2021-02 Yes 50mg Take 50 mg [facility] (JANUVIA) 1-09 by mouth ity of 50 mg 14:37: daily. [place] [address] Medical Branch glimepiride 2021-02 Yes 1mg Take 1 mg U nivers (AMARYL) 1 -09 by mouth ity o f mg tablet 14:37: daily with [facility] 43 breakfast. Medical Branch amiodarone 2021-02 Yes 200mg Take 200 Un pat 200 mg 1-09 mg by ity of tablet 14:37: mouth [place] [address] daily. Medical Branch carvediloL 2021-02 Yes 25mg Take 25 mg U nivers (COREG) 25 1-09 by mouth 2 ity of mg tablet 14:37: (two) [place] [address] times Medical daily with Branch meals. DULoxetine 2021-02 Yes 60mg Take 60 mg U nivers 60 mg 1-09 by mouth ity of capsule 14:37: daily. [place] [address] Medical Branch ferrous 2021-02 Yes 325mg Take 325 Unive rs sulfate 325 1-09 mg by ity of mg (65 mg 14:37: mouth 2 [facility]) [place] 43 (two) Medical tablet times Branch daily with meals. gabapentin 2021-02 Yes 400mg Take 400 Un pat 400 mg 1-09 mg by ity of capsule 14:37: mouth 2 [place] 43 (two) Medical times Branch daily. omeprazole 2021-02 Yes 20mg Take 20 mg U nivers 20 mg 1-09 by mouth ity of capsule 14:37: daily. [address] tamsulosin 2021-02 Yes Take by Univ ers 0.4 mg 24 1-09 mouth ity of hr capsule 14:37: daily. [place] [address] [facility] SITagliptin 2021-02 Yes 50mg Take 50 mg Univers (JANUVIA) 1-09 by mouth ity of 50 mg 14:37: daily. [place] tablet Medical Branch glimepiride 2021-02 Yes 1mg Take 1 mg U nivers (AMARYL) 1 1-09 by mouth ity o f mg tablet 14:37: daily with [place] 43 breakfast. Medical Branch amiodarone 2021-02 Yes 200mg Take 200 Un pat 200 mg 1-09 mg by ity of tablet 14:37: mouth [place] 43 daily. Medical Branch carvediloL 2021-02 Yes 25mg Take 25 mg U nivers (COREG) 25 1-09 by mouth 2 ity of mg tablet 14:37: (two) [address] daily with Branch meals. DULoxetine 2021-02 Yes 60mg Take 60 mg U nivers 60 mg -09 by mouth ity of capsule 14:37: daily. [address] ferrous 2021-02 Yes 325mg Take 325 Unive rs sulfate 325 1-09 mg by ity of mg (65 mg 14:37: mouth 2 [facility]) 43 (two) Medical tablet times Branch daily with meals. gabapentin 2021-02 Yes 400mg Take 400 Un pat 400 mg 1-09 mg by ity of capsule 14:37: mouth 2 [place] 43 (two) Medical times Branch daily. omeprazole 2021-02 Yes 20mg Take 20 mg U nivers 20 mg -09 by mouth ity of capsule 14:37: daily. [address] tamsulosin 2021-02 Yes Take by Univ ers 0.4 mg 24 1-09 mouth ity of hr capsule 14:37: daily. [address] SITagliptin 2021-02 Yes 50mg Take 50 mg Univers (JANUVIA) 1-09 by mouth ity of 50 mg 14:37: daily. [place] [address] [facility] glimepiride 2021-02 Yes 1mg Take 1 mg U nivers (AMARYL) 1 1-09 by mouth ity o f mg tablet 14:37: daily with [place] 43 breakfast. Medical Branch amiodarone 2021-02 Yes 200mg Take 200 Un pat 200 mg 1-09 mg by ity of tablet 14:37: mouth [place] 43 daily. Medical Branch carvediloL 2021-02 Yes 25mg Take 25 mg U nivers (COREG) 25 1-09 by mouth 2 ity of mg tablet 14:37: (two) [place] [address] times [facility] daily with Branch meals. DULoxetine 2021-02 Yes 60mg Take 60 mg U nivers 60 mg 1-09 by mouth ity of capsule 14:37: daily. [place] [address] Medical Branch ferrous 2021-02 Yes 325mg Take 325 Unive rs sulfate 325 1-09 mg by ity of mg (65 mg 14:37: mouth 2 [place] iron) EC 43 (two) Medical tablet times [facility] daily with meals. gabapentin 2021-02 Yes 400mg Take 400 Un pat 400 mg 1-09 mg by ity of capsule 14:37: mouth 2 [place] 43 (two) Medical times [facility] daily. omeprazole 2021-02 Yes 20mg Take 20 mg U nivers 20 mg 1-09 by mouth ity of capsule 14:37: daily. [address] tamsulosin 2021-02 Yes Take by Univ ers 0.4 mg 24 1-09 mouth ity of hr capsule 14:37: daily. [address] Branch SITagliptin 2021-02 Yes 50mg Take 50 mg Univers (JANUVIA) 1-09 by mouth ity of 50 mg 14:37: daily. [address] Branch glimepiride 2021-02 Yes 1mg Take 1 mg U nivers (AMARYL) 1 -09 by mouth ity o f mg tablet 14:37: daily with [facility] 43 breakfast. Medical Branch amiodarone 2021-02 Yes 200mg Take 200 Un pat 200 mg 1-09 mg by ity of tablet 14:37: mouth [place] [address] daily. Medical Branch carvediloL 2021-02 Yes 25mg Take 25 mg U nivers (COREG) 25 1-09 by mouth 2 ity of mg tablet 14:37: (two) [place] [address] times [facility] daily with Branch meals. DULoxetine 2021-02 Yes 60mg Take 60 mg U nivers 60 mg 1-09 by mouth ity of capsule 14:37: daily. [address] ferrous 2021-02 Yes 325mg Take 325 Unive rs sulfate 325 1-09 mg by ity of mg (65 mg 14:37: mouth 2 [place] iron) EC 43 (two) Medical tablet times Branch daily with meals. gabapentin 2021-02 Yes 400mg Take 400 Un pat 400 mg 1-09 mg by ity of capsule 14:37: mouth 2 [place] [address] (two) Medical times Branch daily. omeprazole 2021-02 Yes 20mg Take 20 mg U nivers 20 mg 1-09 by mouth ity of capsule 14:37: daily. [address] Branch tamsulosin 2021-02 Yes Take by Univ ers 0.4 mg 24 1-09 mouth ity of hr capsule 14:37: daily. [address] Branch glimepiride 2021-02 Yes 1mg Take 1 mg U nivers (AMARYL) 1 1-09 by mouth ity o f mg tablet 14:37: daily with [place] 43 breakfast. Medical Branch amiodarone 2021-02 Yes 200mg Take 200 Un pat 200 mg 1-09 mg by ity of tablet 14:37: mouth [place] [address] daily. Medical Branch carvediloL 2021-02 Yes 25mg Take 25 mg U nivers (COREG) 25 1-09 by mouth 2 ity of mg tablet 14:37: (two) [place] [address] times [facility] daily with Branch meals. DULoxetine 2021-02 Yes 60mg Take 60 mg U nivers 60 mg 1-09 by mouth ity of capsule 14:37: daily. [address] Branch ferrous 2021-02 Yes 325mg Take 325 Unive rs sulfate 325 1-09 mg by ity of mg (65 mg 14:37: mouth 2 [facility]) EC 43 (two) Medical tablet times Branch daily with meals. gabapentin 2021-02 Yes 400mg Take 400 Un pat 400 mg 1-09 mg by ity of capsule 14:37: mouth 2 [place] [address] (two) Medical times Branch daily. omeprazole 2021-02 Yes 20mg Take 20 mg U nivers 20 mg 1-09 by mouth ity of capsule 14:37: daily. [address] Branch tamsulosin 2021-02 Yes Take by Univ ers 0.4 mg 24 1-09 mouth ity of hr capsule 14:37: daily. [address] Branch glimepiride 2021-02 Yes 1mg Take 1 mg U nivers (AMARYL) 1 1-09 by mouth ity o f mg tablet 14:37: daily with [place] 43 breakfast. Medical Branch amiodarone 2021-02 Yes 200mg Take 200 Un pat 200 mg 1-09 mg by ity of tablet 14:37: mouth [place] 43 daily. Medical Branch carvediloL 2021-02 Yes 25mg Take 25 mg U nivers (COREG) 25 1-09 by mouth 2 ity of mg tablet 14:37: (two) [place] [address] times Medical daily with Branch meals. DULoxetine 2021-02 Yes 60mg Take 60 mg U nivers 60 mg 1-09 by mouth ity of capsule 14:37: daily. [place] [address] Medical Branch ferrous 2021-02 Yes 325mg Take 325 Unive rs sulfate 325 1-09 mg by ity of mg (65 mg 14:37: mouth 2 [place] iron) EC 43 (two) Medical tablet times [facility] daily with meals. gabapentin 2021-02 Yes 400mg Take 400 Un pat 400 mg 1-09 mg by ity of capsule 14:37: mouth 2 [place] 43 (two) Medical times [facility] daily. omeprazole 2021-02 Yes 20mg Take 20 mg U nivers 20 mg 1-09 by mouth ity of capsule 14:37: daily. [address] Branch tamsulosin 2021-02 Yes Take by Univ ers 0.4 mg 24 1-09 mouth ity of hr capsule 14:37: daily. [address] Branch glimepiride 2021-02 Yes 1mg Take 1 mg U nivers (AMARYL) 1 1-09 by mouth ity o f mg tablet 14:37: daily with [place] 43 breakfast. Medical Branch amiodarone 2021-02 Yes 200mg Take 200 Un pat 200 mg 1-09 mg by ity of tablet 14:37: mouth [place] 43 daily. Medical Branch carvediloL 2021-02 Yes 25mg Take 25 mg U nivers (COREG) 25 1-09 by mouth 2 ity of mg tablet 14:37: (two) [address] daily with Branch meals. DULoxetine 2021-02 Yes 60mg Take 60 mg U nivers 60 mg 1-09 by mouth ity of capsule 14:37: daily. [address] ferrous 2021-02 Yes 325mg Take 325 Unive rs sulfate 325 1-09 mg by ity of mg (65 mg 14:37: mouth 2 [place] iron) EC 43 (two) Medical tablet times [facility] daily with meals. gabapentin 2021-02 Yes 400mg Take 400 Un pat 400 mg 1-09 mg by ity of capsule 14:37: mouth 2 [place] [address] (two) Medical times Branch daily. omeprazole 2021-02 Yes 20mg Take 20 mg U nivers 20 mg 1-09 by mouth ity of capsule 14:37: daily. [address] Branch tamsulosin 2021-02 Yes Take by Univ ers 0.4 mg 24 1-09 mouth ity of hr capsule 14:37: daily. [address] Branch glimepiride 2021-02 Yes 1mg Take 1 mg U nivers (AMARYL) 1 1-09 by mouth ity o f mg tablet 14:37: daily with [place] 43 breakfast. Medical Branch amiodarone 2021-02 Yes 200mg Take 200 Un pat 200 mg 1-09 mg by ity of tablet 14:37: mouth [place] [address] daily. Medical Branch carvediloL 2021-02 Yes 25mg Take 25 mg U nivers (COREG) 25 1-09 by mouth 2 ity of mg tablet 14:37: (two) [place] [address] times Medical daily with Branch meals. DULoxetine 2021-02 Yes 60mg Take 60 mg U nivers 60 mg 1-09 by mouth ity of capsule 14:37: daily. [address] Branch ferrous 2021-02 Yes 325mg Take 325 Unive rs sulfate 325 1-09 mg by ity of mg (65 mg 14:37: mouth 2 [facility]) 43 (two) Medical tablet times Branch daily with meals. gabapentin 2021-02 Yes 400mg Take 400 Un pat 400 mg 1-09 mg by ity of capsule 14:37: mouth 2 [place] [address] (two) Medical times Branch daily. omeprazole 2021-02 Yes 20mg Take 20 mg U nivers 20 mg 1-09 by mouth ity of capsule 14:37: daily. [address] Branch tamsulosin 2021-02 Yes Take by Univ ers 0.4 mg 24 1-09 mouth ity of hr capsule 14:37: daily. [address] glimepiride 2021-02 Yes 1mg Take 1 mg U nivers (AMARYL) 1 1-09 by mouth ity o f mg tablet 14:37: daily with [place] 43 breakfast. Medical Branch amiodarone 2021-02 Yes 200mg Take 200 Un pat 200 mg 1-09 mg by ity of tablet 14:37: mouth [place] 43 daily. Medical Branch carvediloL 2021-02 Yes 25mg Take 25 mg U nivers (COREG) 25 1-09 by mouth 2 ity of mg tablet 14:37: (two) [place] [address] times Medical daily with Branch meals. DULoxetine 2021-02 Yes 60mg Take 60 mg U nivers 60 mg 1-09 by mouth ity of capsule 14:37: daily. [address] Branch ferrous 2021-02 Yes 325mg Take 325 Unive rs sulfate 325 1-09 mg by ity of mg (65 mg 14:37: mouth 2 [place] iron) EC 43 (two) Medical tablet times Branch daily with meals. gabapentin 2021-02 Yes 400mg Take 400 Un pat 400 mg 1-09 mg by ity of capsule 14:37: mouth 2 [place] 43 (two) Medical times Branch daily. omeprazole 2021-02 Yes 20mg Take 20 mg U nivers 20 mg 1-09 by mouth ity of capsule 14:37: daily. [address] Branch tamsulosin 2021-02 Yes Take by Univ ers 0.4 mg 24 1-09 mouth ity of hr capsule 14:37: daily. [address] glimepiride 2021-02 Yes 1mg Take 1 mg U nivers (AMARYL) 1 1-09 by mouth ity o f mg tablet 14:37: daily with [place] 43 breakfast. Medical Branch amiodarone 2021-02 Yes 200mg Take 200 Un pat 200 mg 1-09 mg by ity of tablet 14:37: mouth [place] 43 daily. Medical Branch carvediloL 2021-02 Yes 25mg Take 25 mg U nivers (COREG) 25 1-09 by mouth 2 ity of mg tablet 14:37: (two) [place] [address] times Medical daily with Branch meals. DULoxetine 2021-02 Yes 60mg Take 60 mg U nivers 60 mg 1-09 by mouth ity of capsule 14:37: daily. [address] ferrous 2021-02 Yes 325mg Take 325 Unive rs sulfate 325 1-09 mg by ity of mg (65 mg 14:37: mouth 2 [place] iron) EC 43 (two) Medical tablet times Branch daily with meals. gabapentin 2021-02 Yes 400mg Take 400 Un pat 400 mg 1-09 mg by ity of capsule 14:37: mouth 2 [place] 43 (two) Medical times Branch daily. omeprazole 2021-02 Yes 20mg Take 20 mg U nivers 20 mg 1-09 by mouth ity of capsule 14:37: daily. [address] Branch tamsulosin 2021-02 Yes Take by Univ ers 0.4 mg 24 1-09 mouth ity of hr capsule 14:37: daily. [address] Branch glimepiride 2021-02 Yes 1mg Take 1 mg U nivers (AMARYL) 1 1-09 by mouth ity o f mg tablet 14:37: daily with [place] 43 breakfast. Medical Branch amiodarone 2021-02 Yes 200mg Take 200 Un pat 200 mg 1-09 mg by ity of tablet 14:37: mouth [place] [address] daily. Medical Branch carvediloL 2021-02 Yes 25mg Take 25 mg U nivers (COREG) 25 1-09 by mouth 2 ity of mg tablet 14:37: (two) [place] [address] times [facility] daily with Branch meals. DULoxetine 2021-02 Yes 60mg Take 60 mg U nivers 60 mg 1-09 by mouth ity of capsule 14:37: daily. [address] ferrous 2021-02 Yes 325mg Take 325 Unive rs sulfate 325 1-09 mg by ity of mg (65 mg 14:37: mouth 2 [facility]) 43 (two) Medical tablet times Branch daily with meals. gabapentin 2021-02 Yes 400mg Take 400 Un pat 400 mg 1-09 mg by ity of capsule 14:37: mouth 2 [place] 43 (two) Medical times Branch daily. omeprazole 2021-02 Yes 20mg Take 20 mg U nivers 20 mg 1-09 by mouth ity of capsule 14:37: daily. [address] tamsulosin 2021-02 Yes Take by Univ ers 0.4 mg 24 1-09 mouth ity of hr capsule 14:37: daily. [address] glimepiride 2021-02 Yes 1mg Take 1 mg U nivers (AMARYL) 1 1-09 by mouth ity o f mg tablet 14:37: daily with [place] 43 breakfast. Medical Branch amiodarone 2021-02 Yes 200mg Take 200 Un pat 200 mg 1-09 mg by ity of tablet 14:37: mouth [place] 43 daily. Medical Branch carvediloL 2021-02 Yes 25mg Take 25 mg U nivers (COREG) 25 1-09 by mouth 2 ity of mg tablet 14:37: (two) [place] 43 times Medical daily with Branch meals. DULoxetine 2021-02 Yes 60mg Take 60 mg U nivers 60 mg -09 by mouth ity of capsule 14:37: daily. [place] [address] Medical Branch ferrous 2021-02 Yes 325mg Take 325 Unive rs sulfate 325 1-09 mg by ity of mg (65 mg 14:37: mouth 2 [place] iron) 43 (two) Medical tablet times Branch daily with meals. gabapentin 2021-02 Yes 400mg Take 400 Un pat 400 mg 1-09 mg by ity of capsule 14:37: mouth 2 [place] 43 (two) Medical times Branch daily. omeprazole 2021-02 Yes 20mg Take 20 mg U nivers 20 mg -09 by mouth ity of capsule 14:37: daily. [place] [address] Medical Branch tamsulosin 2021-02 Yes Take by Univ ers 0.4 mg 24 -09 mouth ity of hr capsule 14:37: daily. [place] [address] Medical Branch traZODone 2021-02- 100mg Take 100 Un pat 100 mg 1-04 11-04 mg by ity of tablet 12:51: 00:00 mouth at [place] 55 :00 bedtime. Medical Branch traZODone 2021-02 Yes 100mg Take 1 Univers 100 mg 1-04 tablet by ity of tablet 00:00: mouth at [place] 00 bedtime. Medical Branch traZODone 2021-02 Yes 100mg Take 1 Univers 100 mg 1-04 tablet by ity of tablet 00:00: mouth at [place] 00 bedtime. Medical Branch traZODone 2021-02 Yes 100mg Take 1 Univers 100 mg 1-04 tablet by ity of tablet 00:00: mouth at [place] 00 bedtime. Medical Branch traZODone 2021-02 Yes 100mg Take 1 Univers 100 mg 1-04 tablet by ity of tablet 00:00: mouth at [place] 00 bedtime. Medical Branch traZODone 2021-02 Yes 100mg Take 1 Univers 100 mg 1-04 tablet by ity of tablet 00:00: mouth at [place] 00 bedtime. Medical Branch traZODone 2021-02 Yes [id number] 100mg Take 1 Univers 100 mg 1-04 tablet by ity of tablet 00:00: mouth at [place] 00 bedtime. Medical Branch traZODone 2021-02 Yes [id number] 100mg Take 1 Univers 100 mg 1-04 tablet by ity of tablet 00:00: mouth at [place] 00 bedtime. Medical Branch traZODone 2021-02 Yes [id number] 100mg Take 1 Univers 100 mg 1-04 tablet by ity of tablet 00:00: mouth at [place] 00 bedtime. Medical Branch traZODone 2021-02 Yes [id number] 100mg Take 1 Univers 100 mg 1-04 tablet by ity of tablet 00:00: mouth at [place] 00 bedtime. Medical Branch traZODone 2021-02 Yes [id number] 100mg Take 1 Univers 100 mg 1-04 tablet by ity of tablet 00:00: mouth at [place] 00 bedtime. Medical Branch traZODone 2021-02 Yes [id number] 100mg Take 1 Univers 100 mg 1-04 tablet by ity of tablet 00:00: mouth at [place] 00 bedtime. Medical Branch traZODone 2021-02- No [id number] 100mg Take 1 Univers 100 mg 1-04 11-21 tablet by ity of tablet 00:00: 00:00 mouth at [place] 00 :00 bedtime. Medical Branch traZODone 2021-02- No [id number] 100mg Take 1 Univers 100 mg 1-04 11-21 tablet by ity of tablet 00:00: 00:00 mouth at [place] 00 :00 bedtime. Medical Branch traZODone 2021-02- No [id number] 100mg Take 1 Univers 100 mg 1-04 11-21 tablet by ity of tablet 00:00: 00:00 mouth at [place] 00 :00 bedtime. Medical Branch traZODone 2021-02- No [id number] 100mg Take 1 Univers 100 mg 1-04 11-21 tablet by ity of tablet 00:00: 00:00 mouth at [place] 00 :00 bedtime. Medical Branch traZODone 2021-02 Yes [id number] TAKE 2 TO [facility] ([facility]) 0-[address] 50 MG 00:00: [facility]OUTH [facility] tablet 00 NIGHTLY l NEEDED FOR SLEEP levothyroxi 2021-02 Yes [id number] 25ug Take 1 Univers ne 25 mcg 0-24 tablet by ity o f tablet 00:00: mouth [place] 00 every Medical morning. Branch levothyroxi 2021-02 Yes [id number] 25ug Take 1 Univers ne 25 mcg 0-24 tablet by ity o f tablet 00:00: mouth [place] 00 every Medical morning. Branch levothyroxi 2021-02 Yes [id number] 25ug Take 1 Univers ne 25 mcg 0-24 tablet by ity o f tablet 00:00: mouth [place] 00 every Medical morning. Branch levothyroxi 2021-02 Yes [id number] 25ug Take 1 Univers ne 25 mcg 0-24 tablet by ity o f tablet 00:00: mouth [place] 00 every Medical morning. Branch levothyroxi 2021-02 Yes [id number] 25ug Take 1 Univers ne 25 mcg 0-24 tablet by ity o f tablet 00:00: mouth [place] 00 every Medical morning. Branch levothyroxi 2021-02 Yes [id number] 25ug Take 1 Univers ne 25 mcg 0-24 tablet by ity o f tablet 00:00: mouth [place] 00 every Medical morning. Branch levothyroxi 2021-02 Yes [id number] 25ug Take 1 Univers ne 25 mcg 0-24 tablet by ity o f tablet 00:00: mouth [place] 00 every Medical morning. Branch levothyroxi 2021-02 Yes [id number] 25ug Take 1 Univers ne 25 mcg 0-24 tablet by ity o f tablet 00:00: mouth [place] 00 every Medical morning. Branch levothyroxi 2021-02 Yes [id number] 25ug Take 1 Univers ne 25 mcg 0-24 tablet by ity o f tablet 00:00: mouth [place] 00 every Medical morning. Branch levothyroxi 2021-02 Yes [id number] 25ug Take 1 Univers ne 25 mcg 0-24 tablet by ity o f tablet 00:00: mouth [place] 00 every Medical morning. Branch levothyroxi 2021-02 Yes [id number] 25ug Take 1 Univers ne 25 mcg 0-24 tablet by ity o f tablet 00:00: mouth [place] 00 every Medical morning. Branch levothyroxi 2021-02 Yes [id number] 25ug Take 1 Univers ne 25 mcg 0-24 tablet by ity o f tablet 00:00: mouth [place] 00 every Medical morning. Branch levothyroxi 2021-02 Yes [id number] 25ug Take 1 Univers ne 25 mcg 0-24 tablet by ity o f tablet 00:00: mouth [place] 00 every Medical morning. Branch levothyroxi 2021-02 Yes [id number] 25ug Take 1 Univers ne 25 mcg 0-24 tablet by ity o f tablet 00:00: mouth [place] 00 every Medical morning. Branch levothyroxi 2021-02 Yes [id number] 25ug Take 1 Univers ne 25 mcg 0-24 tablet by ity o f tablet 00:00: mouth [place] 00 every Medical morning. Branch levothyroxi 2021-02 Yes [id number] 25ug Take 1 Univers ne 25 mcg 0-24 tablet by ity o f tablet 00:00: mouth [place] 00 every Medical morning. Branch levothyroxi 2021-02 Yes [id number] 25ug Take 1 Univers ne 25 mcg 0-24 tablet by ity o f tablet 00:00: mouth [place] 00 every Medical morning. Branch levothyroxi 2021-02 Yes [id number] 25ug Take 1 Univers ne 25 mcg 0-24 tablet by ity o f tablet 00:00: mouth [place] 00 every Medical morning. Branch levothyroxi 2021-02 Yes [id number] 25ug Take 1 Univers ne 25 mcg 0-24 tablet by ity o f tablet 00:00: mouth [place] 00 every Medical morning. Branch levothyroxi 2021-02 Yes [id number] 25ug Take 1 Univers ne 25 mcg 0-24 tablet by ity o f tablet 00:00: mouth [place] 00 every Medical morning. Branch levothyroxi 2021-02 Yes [id number] 25ug Take 1 Univers ne 25 mcg 0-24 tablet by ity o f tablet 00:00: mouth [place] 00 every Medical morning. Branch levothyroxi 2021-02 Yes [id number] 25ug Take 1 Univers ne 25 mcg 0-24 tablet by ity o f tablet 00:00: mouth [place] 00 every Medical morning. Branch levothyroxi 2021-02 Yes [id number] 25ug Take 1 Univers ne 25 mcg 0-24 tablet by ity o f tablet 00:00: mouth [place] 00 every Medical morning. Branch levothyroxi 2021-02 Yes [id number] 25ug Take 1 Univers ne 25 mcg 0-24 tablet by ity o f tablet 00:00: mouth [place] 00 every Medical morning. Branch levothyroxi 2021-02 Yes [id number] 25ug Take 1 Univers ne 25 mcg 0-24 tablet by ity o f tablet 00:00: mouth [place] 00 every Medical morning. Branch levothyroxi 2021-02 Yes [id number] 25ug Take 1 Univers ne 25 mcg 0-24 tablet by ity o f tablet 00:00: mouth [place] 00 every Medical morning. Branch levothyroxi 2021-02 Yes [id number] 25ug Take 1 Univers ne 25 mcg 0-24 tablet by ity o f tablet 00:00: mouth [place] 00 every Medical morning. Branch levothyroxi 2021-02 Yes [id number] 25ug Take 1 Univers ne 25 mcg 0-24 tablet by ity o f tablet 00:00: mouth [place] 00 every Medical morning. Branch levothyroxi 2021-02 Yes [id number] 25ug Take 1 Univers ne 25 mcg 0-24 tablet by ity o f tablet 00:00: mouth [place] 00 every Medical morning. Branch levothyroxi 2021-02 Yes [id number] 25ug Take 1 Univers ne 25 mcg 0-24 tablet by ity o f tablet 00:00: mouth [place] 00 every Medical morning. Branch levothyroxi 2021-02 Yes [id number] 25ug Take 1 Univers ne 25 mcg 0-24 tablet by ity o f tablet 00:00: mouth [place] 00 every Medical morning. Branch levothyroxi 2021-02 Yes [id number] 25ug Take 1 Univers ne 25 mcg 0-24 tablet by ity o f tablet 00:00: mouth [place] 00 every Medical morning. Branch levothyroxi 2021-02 Yes [id number] 25ug Take 1 Univers ne 25 mcg 0-24 tablet by ity o f tablet 00:00: mouth [place] 00 every Medical morning. Branch levothyroxi 2021-02 Yes [id number] 25ug Take 1 Univers ne 25 mcg 0-24 tablet by ity o f tablet 00:00: mouth [place] 00 every Medical morning. Branch levothyroxi 2021-02 Yes [id number] 25ug Take 1 Univers ne 25 mcg 0-24 tablet by ity o f tablet 00:00: mouth [place] 00 every Medical morning. Branch levothyroxi 2021-02 Yes [id number] 25ug Take 1 Univers ne 25 mcg 0-24 tablet by ity o f tablet 00:00: mouth [place] 00 every Medical morning. Branch levothyroxi 2021-02 Yes [id number] 25ug Take 1 Univers ne 25 mcg 0-24 tablet by ity o f tablet 00:00: mouth [place] 00 every Medical morning. Branch levothyroxi 2021-02 Yes [id number] 25ug Take 1 Univers ne 25 mcg 0-24 tablet by ity o f tablet 00:00: mouth [place] 00 every Medical morning. Branch levothyroxi 2021-02 Yes [id number] 25ug Take 1 Univers ne 25 mcg 0-24 tablet by ity o f tablet 00:00: mouth [place] 00 every Medical morning. Branch HYDROcodone 2021-02- Yes [id number] 1{tbl} Take 1 U nivers -acetaminop 0-24 11-01 tablet by it y of hen ([facility]) 00:00: 04:59 mouth [place] 5-325 mg 00 :00 every 6 Medical tablet (six) Branch hours as needed for Pain (scale 4-6) for up to 7 days. Indication s: chronic pain HYDROcodone 2021-02- Yes [id number] 1{tbl} Take 1 U nivers -acetaminop 0-24 - tablet by it y of hen ([facility]) 00:00: 04:59 mouth [place] 5-325 mg 00 :00 every 6 Medical tablet (six) Branch hours as needed for Pain (scale 4-6) for up to 7 days. Indication s: chronic pain HYDROcodone 2021-02- Yes [id number] 1{tbl} Take 1 U nivers -acetaminop 0-24 11-01 tablet by it y of hen ([employer] 00:00: 04:59 mouth [place] 5-325 mg 00 :00 every 6 Medical tablet (six) Branch hours as needed for Pain (scale 4-6) for up to 7 days. Indication s: chronic pain docusate 2021- No [id number] 100mg Take 1 Univers 100 mg 10-06 capsule by ity of capsule 00:00: 04:59 mouth in [place] 00 :00 the Medical morning Branch for 30 days. sennosides 2021- No [id number] 8.6mg Take 1 Univers 8.6 mg -02 14- tablet by ity of tablet 00:00: 04:59 mouth in [place] 00 :00 the Medical morning Branch for 30 days. levothyroxi 2021-2021- No [id number] 50ug Take 1 Univers ne 50 mcg -11-06 tablet by ity of tablet 00:00: 04:59 mouth [place] 00 :00 every Medical morning Branch for 30 days. docusate 2021-2021- No [id number] 100mg Take 1 Univers 100 mg 10-06 capsule by ity of capsule 00:00: 04:59 mouth in [place] 00 :00 the Medical morning Branch for 30 days. sennosides 2021- No [id number] 8.6mg Take 1 Univers 8.6 mg 10-06 tablet by ity of tablet 00:00: 04:59 mouth in [place] 00 :00 the Medical morning Branch for 30 days. levothyroxi 2021-2021- No [id number] 50ug Take 1 Univers ne 50 mcg 10-06 tablet by ity of tablet 00:00: 04:59 mouth [place] 00 :00 every Medical morning Branch for 30 days. docusate 2021-2021- No [id number] 100mg Take 1 Univers 100 mg 10-06 capsule by ity of capsule 00:00: 04:59 mouth in [place] 00 :00 the Medical morning Branch for 30 days. sennosides 2021- No [id number] 8.6mg Take 1 Univers 8.6 mg -11-06 tablet by ity of tablet 00:00: 04:59 mouth in [place] 00 :00 the Medical morning Branch for 30 days. levothyroxi 2021-2021- No [id number] 50ug Take 1 Univers ne 50 mcg -11-06 tablet by ity of tablet 00:00: 04:59 mouth [place] 00 :00 every Medical morning Branch for 30 days. docusate 2021-0 2021- No [id number] 100mg Take 1 Univers 100 mg -11-06 capsule by ity of capsule 00:00: 04:59 mouth in [place] 00 :00 the Medical morning Branch for 30 days. sennosides 2021- No [id number] 8.6mg Take 1 Univers 8.6 mg -11-06 tablet by ity of tablet 00:00: 04:59 mouth in [place] 00 :00 the Medical morning Branch for 30 days. levothyroxi 2021-2021- No [id number] 50ug Take 1 Univers ne 50 mcg 10-06 tablet by ity of tablet 00:00: 04:59 mouth [place] 00 :00 every Medical morning Branch for 30 days. docusate 2021-2021- No [id number] 100mg Take 1 [facility] 100 mg 10-06 capsule by ity of capsule 00:00: 04:59 mouth in [place] 00 :00 the Medical morning Branch for 30 days. sennosides 2021- No [id number] 8.6mg Take 1 Univers 8.6 mg 10-06 tablet by ity of tablet 00:00: 04:59 mouth in [place] 00 :00 the Medical morning Branch for 30 days. levothyroxi 2021-2021- No [id number] 50ug Take 1 [facility] ne 50 mcg 10-06 tablet by ity of tablet 00:00: 04:59 mouth [place] 00 :00 every Medical morning Branch for 30 days. docusate 2021-2021- No [id number] 100mg Take 1 [facility] 100 mg 10-06 capsule by ity of capsule 00:00: 04:59 mouth in [place] 00 :00 the Medical morning Branch for 30 days. sennosides 2021- No [id number] 8.6mg Take 1 [facility] 8.6 mg 10-06 tablet by ity of tablet 00:00: 04:59 mouth in [place] 00 :00 the Medical morning Branch for 30 days. levothyroxi 2021-2021- No [id number] 50ug Take 1 [facility] ne 50 mcg -11-06 tablet by ity of tablet 00:00: 04:59 mouth [place] 00 :00 every Medical morning Branch for 30 days. glimepiride 2021-0 Yes 1mg Take 1 mg [facility] nivers (AMARYL) 1 8-31 by mouth ity o f mg tablet 18:35: daily with [place] 55 breakfast. Medical Branch amiodarone Yes 200mg Take 200 Un pat 200 mg 8-31 mg by ity of tablet 18:35: mouth [place] [address] daily. Medical Branch carvediloL Yes 25mg Take 25 mg [facility] nivers (COREG) 25 8-31 by mouth 2 ity of mg tablet 18:35: (two) [place] [address] times Medical daily with Branch meals. DULoxetine 0 Yes 60mg Take 60 mg [facility] 60 mg 8-31 by mouth ity of capsule 18:35: daily. [place] [address] Medical Branch ferrous 0 Yes 325mg Take 325 Unive rs sulfate 325 8-31 mg by ity of mg (65 mg 18:35: mouth 2 [place] iron) 55 (two) Medical tablet times [facility] daily with meals. gabapentin Yes 400mg Take 400 Un pat 400 mg 8-31 mg by ity of capsule 18:35: mouth 2 [place] 55 (two) Medical times Branch daily. omeprazole 0 Yes 20mg Take 20 mg [facility] nivers 20 mg 8-31 by mouth ity of capsule 18:35: daily. [place] [address] Medical Branch tamsulosin 0 Yes Take by [facility] ers 0.4 mg 24 8-31 mouth ity of hr capsule 18:35: daily. [place] [address] Medical Branch traZODone 0 Yes 100mg Take 100 Uni vers 100 mg 8-31 mg by ity of tablet 18:35: mouth at [place] [address] bedtime. Medical Branch SITagliptin Yes 50mg Take 50 mg [facility] (JANUVIA) 8-31 by mouth ity of 50 mg 18:35: daily. [place] [address] Medical Branch glimepiride 0 Yes 1mg Take 1 mg [facility] nivers (AMARYL) 1 8-31 by mouth ity o f mg tablet 18:35: daily with [place] 55 breakfast. Medical Branch amiodarone Yes 200mg Take 200 Un pat 200 mg 8-31 mg by ity of tablet 18:35: mouth [place] 55 daily. Medical Branch carvediloL 0 Yes 25mg Take 25 mg [facility] n[facility] (COREG) 25 8-31 by mouth 2 ity of mg tablet 18:35: (two) [place] [address] times Medical daily with Branch meals. DULoxetine 0 Yes 60mg Take 60 mg [facility] 60 mg 8-31 by mouth ity of capsule 18:35: daily. [place] [address] Medical Branch ferrous 2021-0 Yes 325mg Take 325 Unive rs sulfate 325 8-31 mg by ity of mg (65 mg 18:35: mouth 2 [place] iron) 55 (two) Medical tablet times Branch daily with meals. gabapentin 0 Yes 400mg Take 400 Un pat 400 mg 8-31 mg by ity of capsule 18:35: mouth 2 [place] 55 (two) Medical times Branch daily. omeprazole 0 Yes 20mg Take 20 mg [facility] 20 mg 8-31 by mouth ity of capsule 18:35: daily. [place] [address] Medical Branch tamsulosin 0 Yes Take by [facility] ers 0.4 mg 24 8-31 mouth ity of hr capsule 18:35: daily. [place] [address] Medical Branch traZODone 0 Yes 100mg Take 100 Uni vers 100 mg 8-31 mg by ity of tablet 18:35: mouth at [place] [address] bedtime. Medical Branch SITagliptin 0 Yes 50mg Take 50 mg [facility] (JANUVIA) 8-31 by mouth ity of 50 mg 18:35: daily. [place] [address] Medical Branch glimepiride 0 Yes 1mg Take 1 mg [facility] (AMARYL) 1 8-31 by mouth ity o f mg tablet 18:35: daily with [place] [address] breakfast. Medical Branch amiodarone 0 Yes 200mg Take 200 Un pat 200 mg 8-31 mg by ity of tablet 18:35: mouth [place] [address] daily. Medical Branch carvediloL 0 Yes 25mg Take 25 mg [facility] (COREG) 25 8-31 by mouth 2 ity of mg tablet 18:35: (two) [place] [address] times Medical daily with Branch meals. DULoxetine 0 Yes 60mg Take 60 mg [facility] 60 mg 8-31 by mouth ity of capsule 18:35: daily. [place] [address] Medical Branch ferrous 0 Yes 325mg Take 325 Unive rs sulfate 325 8-31 mg by ity of mg (65 mg 18:35: mouth 2 [place] iron) EC 55 (two) Medical tablet times Branch daily with meals. gabapentin 2021-0 Yes 400mg Take 400 Un pat 400 mg 8-31 mg by ity of capsule 18:35: mouth 2 [place] [address] (two) Medical times Branch daily. omeprazole 2021-0 Yes 20mg Take 20 mg [facility] 20 mg 8-31 by mouth ity of capsule 18:35: daily. [place] [address] Medical Branch tamsulosin 0 Yes Take by [facility] ers 0.4 mg 24 8-31 mouth ity of hr capsule 18:35: daily. [place] [address] Medical Branch traZODone 2021-0 Yes 100mg Take 100 Uni vers 100 mg 8-31 mg by ity of tablet 18:35: mouth at [place] [address] bedtime. Medical Branch SITagliptin 0 Yes 50mg Take 50 mg [facility] (JANUVIA) 8-31 by mouth ity of 50 mg 18:35: daily. [place] [address] Medical Branch glimepiride 0 Yes 1mg Take 1 mg [facility] (AMARYL) 1 8-31 by mouth ity o f mg tablet 18:35: daily with [place] 55 breakfast. Medical Branch amiodarone 0 Yes 200mg Take 200 Un pat 200 mg 8-31 mg by ity of tablet 18:35: mouth [place] [address] daily. Medical Branch carvediloL 0 Yes 25mg Take 25 mg [facility] nivers (COREG) 25 8-31 by mouth 2 ity of mg tablet 18:35: (two) [place] [address] times [facility] daily with Branch meals. DULoxetine 0 Yes 60mg Take 60 mg [facility] nivers 60 mg 8-31 by mouth ity of capsule 18:35: daily. [place] [address] Medical Branch ferrous 2021-0 Yes 325mg Take 325 Unive rs sulfate 325 8-31 mg by ity of mg (65 mg 18:35: mouth 2 [facility]) EC 55 (two) Medical tablet times Branch daily with meals. gabapentin 2021-0 Yes 400mg Take 400 Un pat 400 mg 8-31 mg by ity of capsule 18:35: mouth 2 [place] [address] (two) Medical times Branch daily. omeprazole 2021-0 Yes 20mg Take 20 mg [facility] 20 mg 8-31 by mouth ity of capsule 18:35: daily. [place] [address] Medical Branch tamsulosin Yes Take by [facility] ers 0.4 mg 24 8-31 mouth ity of hr capsule 18:35: daily. [place] [address] Medical Branch traZODone 0 Yes 100mg Take 100 Uni vers 100 mg 8-31 mg by ity of tablet 18:35: mouth at [place] [address] bedtime. Medical Branch SITagliptin 0 Yes 50mg Take 50 mg [facility] (JANUVIA) 8-31 by mouth ity of 50 mg 18:35: daily. [place] tablet 55 Medical Branch glimepiride 0 Yes 1mg Take 1 mg [facility] n[facility] (AMARYL) 1 8-31 by mouth ity o f mg tablet 18:35: daily with [place] 55 breakfast. Medical Branch amiodarone 0 Yes 200mg Take 200 Un pat 200 mg 8-31 mg by ity of tablet 18:35: mouth [place] [address] daily. Medical Branch carvediloL Yes 25mg Take 25 mg [facility] nivers (COREG) 25 8-31 by mouth 2 ity of mg tablet 18:35: (two) [place] [address] times Medical daily with Branch meals. DULoxetine 0 Yes 60mg Take 60 mg [facility] 60 mg 8-31 by mouth ity of capsule 18:35: daily. [place] [address] Medical Branch ferrous 0 Yes 325mg Take 325 Unive rs sulfate 325 8-31 mg by ity of mg (65 mg 18:35: mouth 2 [place] iron) EC 55 (two) Medical tablet times Branch daily with meals. gabapentin 0 Yes 400mg Take 400 Un pat 400 mg 8-31 mg by ity of capsule 18:35: mouth 2 [place] 55 (two) Medical times Branch daily. omeprazole 0 Yes 20mg Take 20 mg [facility] n[facility] 20 mg 8-31 by mouth ity of capsule 18:35: daily. [place] [address] Medical Branch tamsulosin 0 Yes Take by [facility] ers 0.4 mg 24 8-31 mouth ity of hr capsule 18:35: daily. [place] [address] Medical Branch traZODone 0 Yes 100mg Take 100 Uni vers 100 mg 8-31 mg by ity of tablet 18:35: mouth at [place] [address] bedtime. Medical Branch SITagliptin 0 Yes 50mg Take 50 mg [facility] (JANUVIA) 8-31 by mouth ity of 50 mg 18:35: daily. [place] tablet 55 Medical Branch glimepiride 0 Yes 1mg Take 1 mg [facility] nivers (AMARYL) 1 8-31 by mouth ity o f mg tablet 18:35: daily with [place] 55 breakfast. Medical Branch amiodarone 0 Yes 200mg Take 200 Un pat 200 mg 8-31 mg by ity of tablet 18:35: mouth [place] 55 daily. Medical Branch carvediloL 0 Yes 25mg Take 25 mg [facility] nivers (COREG) 25 8-31 by mouth 2 ity of mg tablet 18:35: (two) [place] [address] times Medical daily with Branch meals. DULoxetine 0 Yes 60mg Take 60 mg [facility] nivers 60 mg 8-31 by mouth ity of capsule 18:35: daily. [place] [address] Medical Branch ferrous 0 Yes 325mg Take 325 Unive rs sulfate 325 8-31 mg by ity of mg (65 mg 18:35: mouth 2 [place] iron) 55 (two) Medical tablet times Branch daily with meals. gabapentin 0 Yes 400mg Take 400 Un pat 400 mg 8-31 mg by ity of capsule 18:35: mouth 2 [place] 55 (two) Medical times Branch daily. omeprazole 0 Yes 20mg Take 20 mg U nivers 20 mg 8-31 by mouth ity of capsule 18:35: daily. [place] [address] Medical Branch tamsulosin 0 Yes Take by [facility] ers 0.4 mg 24 8-31 mouth ity of hr capsule 18:35: daily. [place] [address] Medical Branch traZODone 0 Yes 100mg Take 100 Uni vers 100 mg 8-31 mg by ity of tablet 18:35: mouth at [place] [address] bedtime. Medical Branch SITagliptin 0 Yes 50mg Take 50 mg [facility] (JANUVIA) 8-31 by mouth ity of 50 mg 18:35: daily. [place] tablet 55 Medical Branch glimepiride 0 Yes 1mg Take 1 mg U nivers (AMARYL) 1 8-31 by mouth ity o f mg tablet 18:35: daily with [place] 55 breakfast. Medical Branch amiodarone 0 Yes 200mg Take 200 Un pat 200 mg 8-31 mg by ity of tablet 18:35: mouth [place] [address] daily. Medical Branch carvediloL 0 Yes 25mg Take 25 mg U nivers (COREG) 25 8-31 by mouth 2 ity of mg tablet 18:35: (two) [place] [address] times Medical daily with Branch meals. DULoxetine 0 Yes 60mg Take 60 mg U nivers 60 mg 8-31 by mouth ity of capsule 18:35: daily. [place] [address] Medical Branch ferrous 0 Yes 325mg Take 325 Unive rs sulfate 325 8-31 mg by ity of mg (65 mg 18:35: mouth 2 [place] iron) EC 55 (two) Medical tablet times Branch daily with meals. gabapentin 0 Yes 400mg Take 400 Un pat 400 mg 8-31 mg by ity of capsule 18:35: mouth 2 [place] 55 (two) Medical times Branch daily. omeprazole 0 Yes 20mg Take 20 mg U nivers 20 mg 8-31 by mouth ity of capsule 18:35: daily. [place] [address] Medical Branch tamsulosin 0 Yes Take by Univ ers 0.4 mg 24 8-31 mouth ity of hr capsule 18:35: daily. [place] [address] Medical Branch traZODone 0 Yes 100mg Take 100 Uni vers 100 mg 8-31 mg by ity of tablet 18:35: mouth at [place] [address] bedtime. Medical Branch SITagliptin 0 Yes 50mg Take 50 mg [facility] (JANUVIA) 8-31 by mouth ity of 50 mg 18:35: daily. [place] [address] Medical Branch glimepiride 0 Yes 1mg Take 1 mg U nivers (AMARYL) 1 8-31 by mouth ity o f mg tablet 18:35: daily with [place] 55 breakfast. Medical Branch amiodarone 0 Yes 200mg Take 200 Un pat 200 mg 8-31 mg by ity of tablet 18:35: mouth [place] [address] daily. Medical Branch carvediloL 0 Yes 25mg Take 25 mg U nivers (COREG) 25 8-31 by mouth 2 ity of mg tablet 18:35: (two) [place] [address] times Medical daily with Branch meals. DULoxetine 0 Yes 60mg Take 60 mg U nivers 60 mg 8-31 by mouth ity of capsule 18:35: daily. [place] [address] Medical Branch ferrous 2021-0 Yes 325mg Take 325 Unive rs sulfate 325 8-31 mg by ity of mg (65 mg 18:35: mouth 2 [place] iron) EC 55 (two) Medical tablet times Branch daily with meals. gabapentin 2021-0 Yes 400mg Take 400 Un pat 400 mg 8-31 mg by ity of capsule 18:35: mouth 2 [place] [address] (two) Medical times Branch daily. omeprazole 2021-0 Yes 20mg Take 20 mg U nivers 20 mg 8-31 by mouth ity of capsule 18:35: daily. [place] [address] Medical Branch tamsulosin 2021-0 Yes Take by Univ ers 0.4 mg 24 8-31 mouth ity of hr capsule 18:35: daily. [place] [address] Medical Branch traZODone 2021-0 Yes 100mg Take 100 Uni vers 100 mg 8-31 mg by ity of tablet 18:35: mouth at [place] [address] bedtime. Medical Branch SITagliptin 0 Yes 50mg Take 50 mg [facility] (JANUVIA) 8-31 by mouth ity of 50 mg 18:35: daily. [place] [address] Medical Branch glimepiride 0 Yes 1mg Take 1 mg U nivers (AMARYL) 1 8-31 by mouth ity o f mg tablet 18:35: daily with [place] [address] breakfast. Medical Branch amiodarone 2021-0 Yes 200mg Take 200 Un pat 200 mg 8-31 mg by ity of tablet 18:35: mouth [place] [address] daily. Medical Branch carvediloL 2021-0 Yes 25mg Take 25 mg U nivers (COREG) 25 8-31 by mouth 2 ity of mg tablet 18:35: (two) [place] [address] times [facility] daily with Branch meals. DULoxetine 2021-0 Yes 60mg Take 60 mg U nivers 60 mg 8-31 by mouth ity of capsule 18:35: daily. [place] [address] Medical Branch ferrous 2021-0 Yes 325mg Take 325 Unive rs sulfate 325 8-31 mg by ity of mg (65 mg 18:35: mouth 2 [place] iron) EC 55 (two) Medical tablet times Branch daily with meals. gabapentin 2021-0 Yes 400mg Take 400 Un pat 400 mg 8-31 mg by ity of capsule 18:35: mouth 2 [place] [address] (two) Medical times Branch daily. omeprazole 0 Yes 20mg Take 20 mg U nivers 20 mg 8-31 by mouth ity of capsule 18:35: daily. [place] [address] Medical Branch tamsulosin 0 Yes Take by Univ ers 0.4 mg 24 8-31 mouth ity of hr capsule 18:35: daily. [place] [address] Medical Branch traZODone 0 Yes 100mg Take 100 Uni vers 100 mg 8-31 mg by ity of tablet 18:35: mouth at [place] [address] bedtime. Medical Branch SITagliptin 0 Yes 50mg Take 50 mg [facility] (JANUVIA) 8-31 by mouth ity of 50 mg 18:35: daily. [place] [address] Medical Branch glimepiride 0 Yes 1mg Take 1 mg U nivers (AMARYL) 1 8-31 by mouth ity o f mg tablet 18:35: daily with [place] [address] breakfast. Medical Branch amiodarone 0 Yes 200mg Take 200 Un pat 200 mg 8-31 mg by ity of tablet 18:35: mouth [place] [address] daily. Medical Branch carvediloL 0 Yes 25mg Take 25 mg U nivers (COREG) 25 8-31 by mouth 2 ity of mg tablet 18:35: (two) [place] [address] times [facility] daily with Branch meals. DULoxetine 0 Yes 60mg Take 60 mg U nivers 60 mg 8-31 by mouth ity of capsule 18:35: daily. [place] [address] Medical Branch ferrous 0 Yes 325mg Take 325 Unive rs sulfate 325 8-31 mg by ity of mg (65 mg 18:35: mouth 2 [place] iron) 55 (two) Medical tablet times Branch daily with meals. gabapentin 0 Yes 400mg Take 400 Un pat 400 mg 8-31 mg by ity of capsule 18:35: mouth 2 [place] [address] (two) Medical times Branch daily. omeprazole 0 Yes 20mg Take 20 mg U nivers 20 mg 8-31 by mouth ity of capsule 18:35: daily. [place] [address] Medical Branch tamsulosin 0 Yes Take by Univ ers 0.4 mg 24 8-31 mouth ity of hr capsule 18:35: daily. [place] [address] Medical Branch traZODone 2022-0 Yes 100mg Take 100 Uni vers 100 mg 8-31 mg by ity of tablet 18:35: mouth at [place] [address] bedtime. Medical Branch SITagliptin 0 Yes 50mg Take 50 mg [facility] (JANUVIA) 8-31 by mouth ity of 50 mg 18:35: daily. [place] tablet 55 Medical Branch glimepiride 0 Yes 1mg Take 1 mg U nivers (AMARYL) 1 8-31 by mouth ity o f mg tablet 18:35: daily with [facility] 55 breakfast. Medical Branch amiodarone 0 Yes 200mg Take 200 Un pat 200 mg 8-31 mg by ity of tablet 18:35: mouth [place] 55 daily. Medical Branch carvediloL 0 Yes 25mg Take 25 mg U nivers (COREG) 25 8-31 by mouth 2 ity of mg tablet 18:35: (two) [place] [address] times Medical daily with Branch meals. DULoxetine 0 Yes 60mg Take 60 mg U nivers 60 mg 8-31 by mouth ity of capsule 18:35: daily. [place] [address] Medical Branch ferrous 0 Yes 325mg Take 325 Unive rs sulfate 325 8-31 mg by ity of mg (65 mg 18:35: mouth 2 [place] iron) EC 55 (two) Medical tablet times Branch daily with meals. gabapentin 0 Yes 400mg Take 400 Un pat 400 mg 8-31 mg by ity of capsule 18:35: mouth 2 [place] 55 (two) Medical times Branch daily. omeprazole 0 Yes 20mg Take 20 mg U nivers 20 mg 8-31 by mouth ity of capsule 18:35: daily. [place] [address] Medical Branch tamsulosin 0 Yes Take by Univ ers 0.4 mg 24 8-31 mouth ity of hr capsule 18:35: daily. [place] [address] Medical Branch traZODone 0 Yes 100mg Take 100 Uni vers 100 mg 8-31 mg by ity of tablet 18:35: mouth at [place] [address] bedtime. Medical Branch SITagliptin 0 Yes 50mg Take 50 mg [facility] (JANUVIA) 8-31 by mouth ity of 50 mg 18:35: daily. [place] tablet 55 Medical Branch glimepiride 0 Yes 1mg Take 1 mg U nivers (AMARYL) 1 8-31 by mouth ity o f mg tablet 18:35: daily with [place] 55 breakfast. Medical Branch amiodarone 0 Yes 200mg Take 200 Un pat 200 mg 8-31 mg by ity of tablet 18:35: mouth [place] [address] daily. Medical Branch carvediloL 0 Yes 25mg Take 25 mg U nivers (COREG) 25 8-31 by mouth 2 ity of mg tablet 18:35: (two) [place] [address] times Medical daily with Branch meals. DULoxetine 0 Yes 60mg Take 60 mg U nivers 60 mg 8-31 by mouth ity of capsule 18:35: daily. [place] [address] Medical Branch ferrous 0 Yes 325mg Take 325 Unive rs sulfate 325 8-31 mg by ity of mg (65 mg 18:35: mouth 2 [place] iron) 55 (two) Medical tablet times [facility] [place] daily with meals. gabapentin 0 Yes 400mg Take 400 Un pat 400 mg 8-31 mg by ity of capsule 18:35: mouth 2 [place] 55 (two) Medical times Branch daily. omeprazole 0 Yes 20mg Take 20 mg U nivers 20 mg 8-31 by mouth ity of capsule 18:35: daily. [place] [address] Medical Branch tamsulosin 0 Yes Take by Univ ers 0.4 mg 24 8-31 mouth ity of hr capsule 18:35: daily. [place] [address] Medical Branch traZODone 0 Yes 100mg Take 100 Uni vers 100 mg 8-31 mg by ity of tablet 18:35: mouth at [place] [address] bedtime. Medical Branch SITagliptin 0 Yes 50mg Take 50 mg [facility] (JANUVIA) 8-31 by mouth ity of 50 mg 18:35: daily. [place] [address] Medical Branch glimepiride 0 Yes 1mg Take 1 mg U nivers (AMARYL) 1 8-31 by mouth ity o f mg tablet 18:35: daily with [place] 55 breakfast. Medical Branch amiodarone 0 Yes 200mg Take 200 Un pat 200 mg 8-31 mg by ity of tablet 18:35: mouth [place] [address] daily. Medical Branch carvediloL 0 Yes 25mg Take 25 mg U nivers (COREG) 25 8-31 by mouth 2 ity of mg tablet 18:35: (two) [place] [address] times Medical daily with Branch meals. DULoxetine 0 Yes 60mg Take 60 mg U nivers 60 mg 8-31 by mouth ity of capsule 18:35: daily. [place] [address] Medical Branch ferrous 0 Yes 325mg Take 325 Unive rs sulfate 325 8-31 mg by ity of mg (65 mg 18:35: mouth 2 [place] iron) EC 55 (two) Medical tablet times [facility] daily with meals. gabapentin 0 Yes 400mg Take 400 Un pat 400 mg 8-31 mg by ity of capsule 18:35: mouth 2 [place] 55 (two) Medical times Branch daily. omeprazole 0 Yes 20mg Take 20 mg U nivers 20 mg 8-31 by mouth ity of capsule 18:35: daily. [place] [address] Medical Branch tamsulosin 0 Yes Take by Univ ers 0.4 mg 24 8-31 mouth ity of hr capsule 18:35: daily. [place] [address] Medical Branch traZODone 0 Yes 100mg Take 100 Uni vers 100 mg 8-31 mg by ity of tablet 18:35: mouth at [place] [address] bedtime. Medical Branch SITagliptin 0 Yes 50mg Take 50 mg [facility] (JANUVIA) 8-31 by mouth ity of 50 mg 18:35: daily. [place] [address] Medical Branch glimepiride 0 Yes 1mg Take 1 mg U nivers (AMARYL) 1 8-31 by mouth ity o f mg tablet 18:35: daily with [place] [address] breakfast. Medical Branch amiodarone 0 Yes 200mg Take 200 Un pat 200 mg 8-31 mg by ity of tablet 18:35: mouth [place] [address] daily. Medical Branch carvediloL 0 Yes 25mg Take 25 mg U nivers (COREG) 25 8-31 by mouth 2 ity of mg tablet 18:35: (two) [place] [address] times Medical daily with Branch meals. DULoxetine 0 Yes 60mg Take 60 mg U nivers 60 mg 8-31 by mouth ity of capsule 18:35: daily. [place] [address] Medical Branch ferrous 0 Yes 325mg Take 325 Unive rs sulfate 325 8-31 mg by ity of mg (65 mg 18:35: mouth 2 [place] iron) EC 55 (two) Medical tablet times Branch daily with meals. gabapentin 2021-0 Yes 400mg Take 400 Un pat 400 mg 8-31 mg by ity of capsule 18:35: mouth 2 [place] [address] (two) Medical times Branch daily. omeprazole 2021-0 Yes 20mg Take 20 mg U nivers 20 mg 8-31 by mouth ity of capsule 18:35: daily. [place] [address] Medical Branch tamsulosin 0 Yes Take by Univ ers 0.4 mg 24 8-31 mouth ity of hr capsule 18:35: daily. [place] [address] Medical Branch traZODone 2021-0 Yes 100mg Take 100 Uni vers 100 mg 8-31 mg by ity of tablet 18:35: mouth at [place] [address] bedtime. Medical Branch SITagliptin 0 Yes 50mg Take 50 mg [facility] (JANUVIA) 8-31 by mouth ity of 50 mg 18:35: daily. [place] [address] Medical Branch glimepiride 0 Yes 1mg Take 1 mg U nivers (AMARYL) 1 8-31 by mouth ity o f mg tablet 18:35: daily with [facility] 55 breakfast. Medical Branch amiodarone 0 Yes 200mg Take 200 Un pat 200 mg 8-31 mg by ity of tablet 18:35: mouth [place] [address] daily. Medical Branch carvediloL 0 Yes 25mg Take 25 mg U nivers (COREG) 25 8-31 by mouth 2 ity of mg tablet 18:35: (two) [place] [address] times [facility] daily with Branch meals. DULoxetine 0 Yes 60mg Take 60 mg U nivers 60 mg 8-31 by mouth ity of capsule 18:35: daily. [place] [address] Medical Branch ferrous 2021-0 Yes 325mg Take 325 Unive rs sulfate 325 8-31 mg by ity of mg (65 mg 18:35: mouth 2 [facility]) EC 55 (two) Medical tablet times Branch daily with meals. gabapentin 2021-0 Yes 400mg Take 400 Un pat 400 mg 8-31 mg by ity of capsule 18:35: mouth 2 [place] [address] (two) Medical times Branch daily. omeprazole 2021-0 Yes 20mg Take 20 mg U nivers 20 mg 8-31 by mouth ity of capsule 18:35: daily. [place] [address] Medical Branch tamsulosin Yes Take by Univ ers 0.4 mg 24 10-05 mouth ity of hr capsule 18:35: daily. [place] [address] Medical Branch SITagliptin 0 Yes 50mg Take 50 mg [facility] (JANUVIA) 10-05 by mouth ity of 50 mg 18:35: daily. [place] [address] Medical Branch levothyroxi 2021- No 25ug Take 25 Un pat ne 25 mcg 10-0531 mcg by ity of tablet 10:19: 00:00 mouth [place] 34 :00 every Medical morning. Branch lisinopriL 2021- No 20mg Take 20 mg [facility] 20 mg 10-05 by mouth ity of tablet 10:19: 00:00 daily. [place] 34 :00 Medical Branch polyethylen 0 Yes [id number] 17g Take 1 Univers e glycol 8-31 Packet by ity of 3350 17 00:00: mouth in [place] gram powder 00 the Medical morning Branch and 1 Packet in the evening. ergocalcife 0 Yes [id number] Take 1 [facility] rol, 8-31 capsule by ity of vitamin d2, 00:00: mouth [place] 1,250 mcg 00 weekly. Medical (50,000 Branch unit) capsule polyethylen 2021-0 Yes [id number] 17g Take 1 [facility] e glycol 8-31 Packet by ity of 3350 17 00:00: mouth in [place] gram powder 00 the Medical morning Branch and 1 Packet in the evening. ergocalcife 2021-0 Yes [id number] Take 1 [facility] rol, 8-31 capsule by ity of vitamin d2, 00:00: mouth [place] 1,250 mcg 00 weekly. Medical (50,000 Branch unit) capsule polyethylen 2021-0 Yes [id number] 17g Take 1 [facility] e glycol 8-31 Packet by ity of 3350 17 00:00: mouth in [place] gram powder 00 the Medical morning Branch and 1 Packet in the evening. ergocalcife 2021-0 Yes [id number] Take 1 [facility] rol, 8-31 capsule by ity of vitamin d2, 00:00: mouth [place] 1,250 mcg 00 weekly. Medical (50,000 Branch unit) capsule polyethylen 2021-0 Yes [id number] 17g Take 1 [facility] e glycol 8-31 Packet by ity of 3350 17 00:00: mouth in [place] gram powder 00 the Medical morning Branch and 1 Packet in the evening. ergocalcife 2-0 Yes [id number] Take 1 [facility] rol, 8-31 capsule by ity of vitamin d2, 00:00: mouth [place] 1,250 mcg 00 weekly. Medical (50,000 Branch unit) capsule polyethylen 2-0 Yes [id number] 17g Take 1 [facility] e glycol 8-31 Packet by ity of 3350 17 00:00: mouth in [place] gram powder 00 the Medical morning Branch and 1 Packet in the evening. ergocalcife 2-0 Yes [id number] Take 1 [facility] rol, 8-31 capsule by ity of vitamin d2, 00:00: mouth [place] 1,250 mcg 00 weekly. Medical (50,000 Branch unit) capsule polyethylen 2022-0 Yes [id number] 17g Take 1 [facility] e glycol 8-31 Packet by ity of 3350 17 00:00: mouth in [place] gram powder 00 the Medical morning Branch and 1 Packet in the evening. ergocalcife 2-0 Yes [id number] Take 1 [facility] rol, 8-31 capsule by ity of vitamin d2, 00:00: mouth [place] 1,250 mcg 00 weekly. Medical (50,000 Branch unit) capsule polyethylen 2-0 Yes [id number] 17g Take 1 [facility] e glycol 8-31 Packet by ity of 3350 17 00:00: mouth in [place] gram powder 00 the Medical morning Branch and 1 Packet in the evening. ergocalcife 2-0 Yes [id number] Take 1 [facility] rol, 8-31 capsule by ity of vitamin d2, 00:00: mouth [place] 1,250 mcg 00 weekly. Medical (50,000 Branch unit) capsule polyethylen 2022-0 Yes [id number] 17g Take 1 [facility] e glycol 8-31 Packet by ity of 3350 17 00:00: mouth in [place] gram powder 00 the Medical morning Branch and 1 Packet in the evening. ergocalcife 2022-0 Yes [id number] Take 1 [facility] rol, 8-31 capsule by [facility]y of vitamin d2, 00:00: mouth [place] 1,250 mcg 00 weekly. Medical (50,000 Branch unit) capsule polyethylen 2022-0 Yes [id number] 17g Take 1 [facility] e glycol 8-31 Packet by ity of 3350 17 00:00: mouth in [place] gram powder 00 the Medical morning Branch and 1 Packet in the evening. ergocalcife 2022-0 Yes [id number] Take 1 [facility] rol, 8-31 capsule by ity of vitamin d2, 00:00: mouth [place] 1,250 mcg 00 weekly. Medical (50,000 Branch unit) capsule polyethylen 2022-0 Yes [id number] 17g Take 1 [facility] e glycol 8-31 Packet by ity of 3350 17 00:00: mouth in [place] gram powder 00 the Medical morning Branch and 1 Packet in the evening. ergocalcife 2022-0 Yes [id number] Take 1 [facility] rol, 8-31 capsule by ity of vitamin d2, 00:00: mouth [place] 1,250 mcg 00 weekly. Medical (50,000 Branch unit) capsule polyethylen 2022-0 Yes [id number] 17g Take 1 [facility] e glycol 8-31 Packet by ity of 3350 17 00:00: mouth in [place] gram powder 00 the Medical morning Branch and 1 Packet in the evening. ergocalcife 2022-0 Yes [id number] Take 1 [facility] rol, 8-31 capsule by ity of vitamin d2, 00:00: mouth [place] 1,250 mcg 00 weekly. Medical (50,000 Branch unit) capsule polyethylen 2022-0 Yes [id number] 17g Take 1 [facility] e glycol 8-31 Packet by ity of 3350 17 00:00: mouth in [place] gram powder 00 the Medical morning Branch and 1 Packet in the evening. ergocalcife 2022-0 Yes [id number] Take 1 [facility] rol, 8-31 capsule by ity of vitamin d2, 00:00: mouth [place] 1,250 mcg 00 weekly. Medical (50,000 Branch unit) capsule polyethylen 2022-0 Yes [id number] 17g Take 1 [facility] e glycol 8-31 Packet by ity of 3350 17 00:00: mouth in [place] gram powder 00 the Medical morning Branch and 1 Packet in the evening. ergocalcife 2022-0 Yes [id number] Take 1 [facility] rol, 8-31 capsule by ity of vitamin d2, 00:00: mouth [place] 1,250 mcg 00 weekly. Medical (50,000 Branch unit) capsule polyethylen 2022-0 Yes [id number] 17g Take 1 [facility] e glycol 8-31 Packet by ity of 3350 17 00:00: mouth in [place] gram powder 00 the Medical morning Branch and 1 Packet in the evening. ergocalcife 2022-0 Yes [id number] Take 1 [facility] rol, 8-31 capsule by ity of vitamin d2, 00:00: mouth [place] 1,250 mcg 00 weekly. Medical (50,000 Branch unit) capsule polyethylen 2022-0 Yes [id number] 17g Take 1 [facility] e glycol 8-31 Packet by ity of 3350 17 00:00: mouth in [place] gram powder 00 the Medical morning Branch and 1 Packet in the evening. ergocalcife 2022-0 Yes [id number] Take 1 [facility] rol, 8-31 capsule by ity of vitamin d2, 00:00: mouth [place] 1,250 mcg 00 weekly. Medical (50,000 Branch unit) capsule polyethylen 2022-0 Yes [id number] 17g Take 1 [facility] e glycol 8-31 Packet by ity of 3350 17 00:00: mouth in [place] gram powder 00 the Medical morning Branch and 1 Packet in the evening. ergocalcife 2022-0 Yes [id number] Take 1 [facility] rol, 8-31 capsule by ity of vitamin d2, 00:00: mouth [place] 1,250 mcg 00 weekly. Medical (50,000 Branch unit) capsule polyethylen 2022-0 Yes [id number] 17g Take 1 [facility] e glycol 8-31 Packet by ity of 3350 17 00:00: mouth in [place] gram powder 00 the Medical morning Branch and 1 Packet in the evening. ergocalcife 2022-0 Yes [id number] Take 1 [facility] rol, 8-31 capsule by ity of vitamin d2, 00:00: mouth [place] 1,250 mcg 00 weekly. Medical (50,000 Branch unit) capsule polyethylen 2022-0 Yes [id number] 17g Take 1 [facility] e glycol 8-31 Packet by ity of 3350 17 00:00: mouth in [place] gram powder 00 the Medical morning Branch and 1 Packet in the evening. ergocalcife 2022-0 Yes [id number] Take 1 [facility] rol, 8-31 capsule by ity of vitamin d2, 00:00: mouth [place] 1,250 mcg 00 weekly. Medical (50,000 Branch unit) capsule polyethylen 2022-0 Yes [id number] 17g Take 1 [facility] e glycol 8-31 Packet by ity of 3350 17 00:00: mouth in [place] gram powder 00 the Medical morning Branch and 1 Packet in the evening. ergocalcife 2022-0 Yes [id number] Take 1 [facility] rol, 8-31 capsule by ity of vitamin d2, 00:00: mouth [place] 1,250 mcg 00 weekly. Medical (50,000 Branch unit) capsule polyethylen 2022-0 Yes [id number] 17g Take 1 [facility] e glycol 8-31 Packet by ity of 3350 17 00:00: mouth in [place] gram powder 00 the Medical morning Branch and 1 Packet in the evening. ergocalcife 2022-0 Yes [id number] Take 1 [facility] rol, 8-31 capsule by ity of vitamin d2, 00:00: mouth [place] 1,250 mcg 00 weekly. Medical (50,000 Branch unit) capsule polyethylen 2022-0 Yes [id number] 17g Take 1 [facility] e glycol 8-31 Packet by ity of 3350 17 00:00: mouth in [place] gram powder 00 the Medical morning Branch and 1 Packet in the evening. ergocalcife 2022-0 Yes [id number] Take 1 [facility] rol, 8-31 capsule by ity of vitamin d2, 00:00: mouth [place] 1,250 mcg 00 weekly. Medical (50,000 Branch unit) capsule polyethylen 2022-0 Yes [id number] 17g Take 1 [facility] e glycol 8-31 Packet by ity of 3350 17 00:00: mouth in [place] gram powder 00 the Medical morning Branch and 1 Packet in the evening. ergocalcife 2022-0 Yes [id number] Take 1 [facility] rol, 8-31 capsule by ity of vitamin d2, 00:00: mouth [place] 1,250 mcg 00 weekly. Medical (50,000 Branch unit) capsule polyethylen 2022-0 Yes [id number] 17g Take 1 [facility] e glycol 8-31 Packet by ity of 3350 17 00:00: mouth in [place] gram powder 00 the Medical morning Branch and 1 Packet in the evening. ergocalcife 2022-0 Yes [id number] Take 1 [facility] rol, 8-31 capsule by ity of vitamin d2, 00:00: mouth [place] 1,250 mcg 00 weekly. Medical (50,000 Branch unit) capsule polyethylen 2-0 Yes [id number] 17g Take 1 [facility] e glycol 8-31 Packet by ity of 3350 17 00:00: mouth in [place] gram powder 00 the Medical morning Branch and 1 Packet in the evening. ergocalcife 2022-0 Yes [id number] Take 1 [facility] rol, 8-31 capsule by ity of vitamin d2, 00:00: mouth [place] 1,250 mcg 00 weekly. Medical (50,000 Branch unit) capsule ergocalcife 2022-0 Yes [id number] Take 1 [facility] rol, 8-31 capsule by ity of vitamin d2, 00:00: mouth [place] 1,250 mcg 00 weekly. Medical (50,000 Branch unit) capsule ergocalcife 2022-0 Yes [id number] Take 1 [facility] rol, 8-31 capsule by ity of vitamin d2, 00:00: mouth [place] 1,250 mcg 00 weekly. Medical (50,000 Branch unit) capsule ergocalcife 2022-0 Yes [id number] Take 1 [facility] rol, 8-31 capsule by ity of vitamin d2, 00:00: mouth [place] 1,250 mcg 00 weekly. Medical (50,000 Branch unit) capsule ergocalcife 2022-0 Yes [id number] Take 1 [facility] rol, 8-31 capsule by ity of vitamin d2, 00:00: mouth [place] 1,250 mcg 00 weekly. Medical (50,000 Branch unit) capsule ergocalcife 2022-0 Yes [id number] Take 1 [facility] rol, 8-31 capsule by ity of vitamin d2, 00:00: mouth [place] 1,250 mcg 00 weekly. Medical (50,000 Branch unit) capsule ergocalcife 2022-0 Yes [id number] Take 1 [facility] rol, 8-31 capsule by ity of vitamin d2, 00:00: mouth [place] 1,250 mcg 00 weekly. Medical (50,000 Branch unit) capsule ergocalcife 2022-0 Yes [id number] Take 1 [facility] rol, 8-31 capsule by ity of vitamin d2, 00:00: mouth [place] 1,250 mcg 00 weekly. Medical (50,000 Branch unit) capsule ergocalcife 2022-0 Yes [id number] Take 1 [facility] rol, 8-31 capsule by ity of vitamin d2, 00:00: mouth [place] 1,250 mcg 00 weekly. Medical (50,000 Branch unit) capsule ergocalcife 2022-0 Yes [id number] Take 1 [facility] rol, 8-31 capsule by ity of vitamin d2, 00:00: mouth [place] 1,250 mcg 00 weekly. Medical (50,000 Branch unit) capsule ergocalcife 2022-0 Yes [id number] Take 1 [facility] rol, 8-31 capsule by ity of vitamin d2, 00:00: mouth [place] 1,250 mcg 00 weekly. Medical (50,000 Branch unit) capsule ergocalcife 2022-0 Yes [id number] Take 1 [facility] rol, 8-31 capsule by ity of vitamin d2, 00:00: mouth [place] 1,250 mcg 00 weekly. Medical (50,000 Branch unit) capsule ergocalcife 2022-0 Yes [id number] Take 1 [facility] rol, 8-31 capsule by ity of vitamin d2, 00:00: mouth [place] 1,250 mcg 00 weekly. Medical (50,000 Branch unit) capsule ergocalcife 2022-0 Yes [id number] Take 1 [facility] rol, 8-31 capsule by ity of vitamin d2, 00:00: mouth [place] 1,250 mcg 00 weekly. Medical (50,000 Branch unit) capsule ergocalcife 2022-0 Yes [id number] Take 1 [facility] rol, 8-31 capsule by ity of vitamin d2, 00:00: mouth [place] 1,250 mcg 00 weekly. Medical (50,000 Branch unit) capsule ergocalcife 2022-0 Yes [id number] Take 1 [facility] rol, 8-31 capsule by ity of vitamin d2, 00:00: mouth [place] 1,250 mcg 00 weekly. Medical (50,000 Branch unit) capsule ergocalcife 2022-0 Yes [id number] Take 1 [facility] rol, 8-31 capsule by ity of vitamin d2, 00:00: mouth [place] 1,250 mcg 00 weekly. Medical (50,000 Branch unit) capsule ergocalcife 2022-0 Yes [id number] Take 1 [facility] rol, 8-31 capsule by ity of vitamin d2, 00:00: mouth [place] 1,250 mcg 00 weekly. Medical (50,000 Branch unit) capsule ergocalcife 2022-0 Yes [id number] Take 1 [facility] rol, 8-31 capsule by ity of vitamin d2, 00:00: mouth [place] 1,250 mcg 00 weekly. Medical (50,000 Branch unit) capsule ergocalcife 2022-0 Yes [id number] Take 1 [facility] rol, 8-31 capsule by ity of vitamin d2, 00:00: mouth [place] 1,250 mcg 00 weekly. Medical (50,000 Branch unit) capsule ergocalcife 2022-0 Yes [id number] Take 1 [facility] rol, 8-31 capsule by ity of vitamin d2, 00:00: mouth [place] 1,250 mcg 00 weekly. Medical (50,000 Branch unit) capsule ergocalcife 2022-0 Yes [id number] Take 1 [facility] rol, 8-31 capsule by ity of vitamin d2, 00:00: mouth [place] 1,250 mcg 00 weekly. Medical (50,000 Branch unit) capsule ergocalcife 2022-0 Yes [id number] Take 1 [facility] rol, 8-31 capsule by ity of vitamin d2, 00:00: mouth [place] 1,250 mcg 00 weekly. Medical (50,000 Branch unit) capsule ergocalcife 2022-0 Yes [id number] Take 1 [facility] rol, 8-31 capsule by ity of vitamin d2, 00:00: mouth [place] 1,250 mcg 00 weekly. Medical (50,000 Branch unit) capsule ergocalcife 2022-0 Yes [id number] Take 1 [facility] rol, 8-31 capsule by ity of vitamin d2, 00:00: mouth [place] 1,250 mcg 00 weekly. Medical (50,000 Branch unit) capsule ergocalcife 2022-0 Yes [id number] Take 1 [facility] rol, 10-05 capsule by ity of vitamin d2, 00:00: mouth [place] 1,250 mcg 00 weekly. Medical (50,000 Branch unit) capsule polyethylen 2021- No [id number] 17g Take 1 [facility] e glycol 10-05 Packet by ity o f 3350 17 00:00: 00:00 mouth in [place] gram powder 00 :00 the Medical morning Branch and 1 Packet in the evening. polyethylen 2021- No [id number] 17g Take 1 [facility] e glycol 10-05 Packet by ity o f 3350 17 00:00: 00:00 mouth in [place] gram powder 00 :00 the Medical morning Branch and 1 Packet in the evening. polyethylen 2021- No [id number] 17g Take 1 [facility] e glycol 10-05 Packet by ity o f 3350 17 00:00: 00:00 mouth in [place] gram powder 00 :00 the Medical morning Branch and 1 Packet in the evening. polyethylen 2021- No [id number] 17g Take 1 [facility] e glycol 10-05 Packet by ity o f 3350 17 00:00: 00:00 mouth in [place] gram powder 00 :00 the Medical morning Branch and 1 Packet in the evening. bisacodyL 2021- No [id number] 10mg Insert 1 [facility] 10 mg 10-05 Suppositor ity of suppository 00:00: 04:59 y into [place] 00 :00 rectum Medical once daily Branch as needed for Constipati on unresolved by oral medication s for up to 30 days. metFORMIN 2021- No [id number] 500mg Take 1 [facility] 500 mg 10-05 tablet by ity of tablet 00:00: 04:59 mouth in [place] 00 :00 the Medical morning Branch and 1 tablet in the evening. Take with meals. Do all this for 30 days. methocarbam 2021- No [id number] 750mg Take 1 [facility] oL 750 mg 10-05 tablet by ity of tablet 00:00: 04:59 mouth 4 [place] 00 :00 (four) Medical times Branch daily for 30 days. melatonin 3 No [id number] 3mg Take 1 [facility] mg tablet 8- 10- tablet by ity of 00:00: 04:59 [facility] [place] [facility] bisacodyL 2021- No [id number] 10mg Insert 1 [facility] 10 mg 8- 10- Suppositor ity of suppository 00:00: 04:59 y into [place] 00 :00 rectum Medical once daily Branch as needed for Constipati on unresolved by oral medication s for up to 30 days. metFORMIN 2021- No [id number] 500mg Take 1 [facility] 500 mg 8- 10- tablet by ity of tablet 00:00: 04:59 mouth in [place] 00 :00 the Medical morning Branch and 1 tablet in the evening. Take with meals. Do all this for 30 days. methocarbam 2021- No [id number] 750mg Take 1 [facility] oL 750 mg 8- 10- tablet by ity of tablet 00:00: 04:59 mouth 4 [place] 00 :00 () Medical times [facility] daily for 30 days. melatonin 3 2021- No [id number] 3mg Take 1 [facility] mg tablet 8- 10- tablet by ity of 00:00: 04:59 mouth at [place] 00 :00 [facility] Medical for 30 Branch days. bisacodyL No [id number] 10mg Insert 1 [facility] 10 mg 8- 10- Suppositor ity of suppository 00:00: 04:59 y into [place] 00 :00 rectum Medical once daily Branch as needed for Constipati on unresolved by oral medication s for up to 30 days. metFORMIN 2021- No [id number] 500mg Take 1 [facility] 500 mg 8- 10-01 tablet by ity of tablet 00:00: 04:59 mouth in [place] 00 :00 the Medical morning Branch and 1 tablet in the evening. Take with meals. Do all this for 30 days. methocarbam 2021- No [id number] 750mg Take 1 [facility] oL 750 mg 8- 10-01 tablet by ity of tablet 00:00: 04:59 mouth 4 [place] 00 :00 () Medical times [facility] daily for 30 days. melatonin 3 2021- No [id number] 3mg Take 1 [facility] mg tablet 8-31 10-01 tablet by ity of 00:00: 04:59 mouth at [place] 00 :00 bedtime Medical for 30 Branch days. bisacodyL 2021- No [id number] 10mg Insert 1 [facility] 10 mg 8-31 10-01 Suppositor ity of suppository 00:00: 04:59 y into [place] 00 :00 rectum Medical once daily Branch as needed for Constipati on unresolved by oral medication s for up to 30 days. metFORMIN 2021- No [id number] 500mg Take 1 [facility] 500 mg 8-31 10-01 tablet by ity of tablet 00:00: 04:59 mouth in [place] 00 :00 the Medical morning Branch and 1 tablet in the evening. Take with meals. Do all this for 30 days. methocarbam 2021- No [id number] 750mg Take 1 [facility] oL 750 mg 8-31 10- tablet by ity of tablet 00:00: 04:59 mouth 4 [place] 00 :00 () Medical times [facility] daily for 30 days. melatonin 3 2021- No [id number] 3mg Take 1 [facility] mg tablet 8- 10- tablet by ity of 00:00: 04:59 mouth at [place] 00 :00 [facility] Medical for 30 Branch days. bisacodyL 2021- No [id number] 10mg Insert 1 [facility] 10 mg 8-31 10- Suppositor ity of suppository 00:00: 04:59 y into [place] 00 :00 rectum Medical once daily Branch as needed for Constipati on unresolved by oral medication s for up to 30 days. metFORMIN 2021- No [id number] 500mg Take 1 [facility] 500 mg 8-31 10-01 tablet by ity of tablet 00:00: 04:59 mouth in [place] 00 :00 the Medical morning Branch and 1 tablet in the evening. Take with meals. Do all this for 30 days. methocarbam 2021- No [id number] 750mg Take 1 [facility] oL 750 mg 8-31 10-01 tablet by ity of tablet 00:00: 04:59 mouth 4 [place] 00 :00 (four) Medical times [facility] daily for 30 days. melatonin 3 2021- No [id number] 3mg Take 1 [facility] mg tablet 10-05 tablet by ity of 00:00: 04:59 mouth at [place] 00 :00 bedtime Medical for 30 Branch days. bisacodyL 2021- No [id number] 10mg Insert 1 [facility] 10 mg 10-05 Suppositor ity of suppository 00:00: 04:59 y into [place] 00 :00 rectum Medical once daily Branch as needed for Constipati on unresolved by oral medication s for up to 30 days. metFORMIN 2021- No [id number] 500mg Take 1 [facility] 500 mg 10-05 tablet by ity of tablet 00:00: 04:59 mouth in [place] 00 :00 the Medical morning Branch and 1 tablet in the evening. Take with meals. Do all this for 30 days. methocarbam 2021- No [id number] 750mg Take 1 [facility] oL 750 mg 10-05 tablet by ity of tablet 00:00: 04:59 mouth 4 [place] 00 :00 (four) Medical times [facility] daily for 30 days. melatonin 3 2021- No [id number] 3mg Take 1 [facility] mg tablet 10-05 tablet by ity of 00:00: 04:59 mouth at [place] 00 :00 bedtime Medical for 30 Branch days. rivastigmin Yes [id number] 1{patch Apply 1 [facility] e 4.6 mg/24 7-29 } Patch to ity of hour patch 00:00: skin in [facility] the Medical morning. Branch Call office for refill when script completed. rivastigmin Yes [id number] 1{patch Apply 1 [facility] e 4.6 mg/24 7-29 } Patch to ity of hour patch 00:00: skin in [facility] 00 the Medical morning. Branch Call office for refill when script completed. rivastigmin Yes [id number] 1{patch Apply 1 [facility] e 4.6 mg/24 7-29 } Patch to ity of hour patch 00:00: skin in [facility] 00 the Medical morning. Branch Call office for refill when script completed. rivastigmin Yes [id number] 1{patch Apply 1 [facility] e 4.6 mg/24 7-29 } Patch to [facility]y of hour patch 00:00: [place] the Medical morning. Branch Call office for refill when script completed. rivastigmin Yes [id number] 1{patch Apply 1 [facility] e 4.6 mg/24 7-29 } Patch to [facility] of hour patch 00:00: [place] the Medical morning. Branch Call office for refill when script completed. rivastigmin Yes [id number] 1{patch Apply 1 [facility] e 4.6 mg/24 7-29 } Patch to [facility] of hour patch 00:00: [place] the Medical morning. Branch Call office for refill when script completed. rivastigmin Yes [id number] 1{patch Apply 1 [facility] e 4.6 mg/24 7-29 } Patch to ity of hour patch 00:00: skin in [place] morning. Branch Call office for refill when script completed. rivastigmin Yes [id number] 1{patch Apply 1 [facility] e 4.6 mg/24 7-29 } Patch to [facility] of hour patch 00:00: [place] the Medical morning. Branch Call office for refill when script completed. rivastigmin Yes [id number] 1{patch Apply 1 [facility] e 4.6 mg/24 7-29 } Patch to [facility]y of hour patch 00:00: skin [place] the morning. Branch Call office for refill when script completed. rivastigmin Yes [id number] 1{patch Apply 1 [facility] e 4.6 mg/24 7-29 } Patch to [facility]y of hour patch 00:00: skin [place] the Medical morning. Branch Call office for refill when script completed. rivastigmin Yes [id number] 1{patch Apply 1 [facility] e 4.6 mg/24 7-29 } Patch to [facility] of hour patch 00:00: [place] 00 the Medical morning. Branch Call office for refill when script completed. rivastigmin 2021- No [id number] 1{patch Apply 1 [facility] e 4.6 mg/24 7-29 10-24 } Patch to ity of hour patch 00:00: 00:00 skin in [place] 00 :00 the Medical morning. Branch Call office for refill when script completed. rivastigmin 2021- No [id number] 1{patch Apply 1 [facility] e 4.6 mg/24 09-0224 } Patch to ity of hour patch 00:00: 00:00 skin in [place] 00 :00 the Medical morning. Branch Call office for refill when script completed. ergocalcife 2021- No [id number] Take 1 [facility] rol, 08-11 08 [id number] capsule by ity of vitamin d2, 00:00: 00:00 [place] 1,250 m[place] 00 :00 weekly for [facility] (50,000 8 doses. Branch unit) capsule glimepiride 0 Yes [id number] 1mg QD Take 1 [facility] (AMARYL) 1 6-13 tablet (1 st MG tablet 00:00: mg total) [facility] 00 by mouth l daily before breakfast. cholecalcif 0 Yes [id number] 2000U QD Take 1 [facility], 6-[address] vitamin D3, 00:00: (2,000 [facility] (cholecalci 00 Units l ferol, total) by vitamin mouth D3,) 50 mcg daily. (2,000 Take with unit) food. capsule capsule levothyroxi 2021-0 Yes [id number] 25ug QD Take 1 [facility] ne 6-13 tablet (25 st (SYNTHROID) 00:00: mcg total) Hospita 25 mcg 00 by mouth l tablet every morning. glimepiride 2021-0 Yes [id number] 1mg QD Take 1 [facility] (AMARYL) 1 6-13 tablet (1 st MG tablet 00:00: mg total) [facility] 00 by mouth l daily before breakfast. cholecalcif 2021-0 Yes [id number] 2000U QD Take 1 [facility], 6-[address] vitamin D3, 00:00: (2,000 [facility] (cholecalci 00 Units l ferol, total) by vitamin mouth D3,) 50 mcg daily. (2,000 Take with unit) food. capsule capsule levothyroxi 2022-0 Yes [id number] 25ug QD Take 1 [facility] ne 6-13 tablet (25 st (SYNTHROID) 00:00: mcg total) Hospita 25 mcg 00 by mouth l tablet every morning. ferrous 2021- No 325mg Q.5D Take 325 [facility] pat[facility] [...] 00:00 daily. Hospita capsule 00 :00 l carvediloL 2021- No 25mg Q.5D Take 25 [...] mouth [facility]osp[facility] tablet 00 :00 daily. l carvediloL 2021- No 25mg Q.5D Take 25 [...] Hospita tablet 00 :00 daily. l ferrous 2021-0 2021- No 325mg Q.5D Take 325 Meth [facility] sulfate 325 5-26 05-[address] (65 FE) MG 15:30: 00:00 mouth 2 [facility] tablet 00 :00 (two) l times a day. DULoxetine 2021-0 2021- No 60mg QD Take 60 mg [facility] (CYMBALTA) 5-26 05-[address] 60 MG 15:30: 00:00 daily. Hospita capsule 00 :00 l omeprazole 2021-0 2021- No 20mg QD Take 20 mg [facility] (PriLOSEC) 5-26 05-[address] 20 MG 15:30: 00:00 daily. [facility]ospita capsule 00 :00 l furosemide 2021-0 2021- No 20mg Q.5D Take 20 mg [facility] (LASIX) 20 5-26 05-[address] mg tablet 14:48: 00:00 (two) Hospit a 09 :00 times a l day. furosemide 2021-0 2021- No 20mg Q.5D Take 20 mg [facility] (LASIX) 20 5-26 05-[address] mg tablet 14:48: 00:00 (two) Hospit a 09 :00 times a l day. carvediloL 0 Yes [id number] 25mg Q.5D Take 1 M [facility] (COREG) 25 5-26 tablet (25 st MG tablet 00:00: mg total) [facility] 00 by mouth 2 l (two) times a day with meals. DULoxetine 0 Yes [id number] 60mg QD Take 1 [facility] (CYMBALTA) 5-[address] 60 MG 00:00: (60 mg [facility]ospita capsule 00 total) by l mouth daily. ferrous 2021-0 Yes [id number] 325mg Q.5D Take 1 Me thodi sulfate 325 5-[address] (65 FE) MG 00:00: (325 mg [facility] tablet 00 total) by l mouth 2 (two) times a day. gabapentin 2021-0 Yes [id number] 400mg Q.5D Take 1 [facility] (NEURONTIN) 5-[address] 400 mg 00:00: (400 mg Hospita capsule 00 total) by l mouth 2 (two) times a day. Januvia 50 0 Yes [id number] 50mg QD Take 1 M [facility] mg tablet 5-26 tablet (50 st 00:00: mg total) Hospita 00 by mouth l daily. amIODarone 0 Yes [id number] 200mg QD Take 1 [facility] (PACERONE) 5-[address] 200 MG 00:00: (200 mg Hospita tablet 00 total) by l mouth daily. lisinopriL Yes [id number] 20mg QD Take 1 M [facility] (PRINIVIL) 5-26 tablet (20 st 20 mg 00:00: mg total) Hospita tablet 00 by mouth l daily. omeprazole Yes [id number] 20mg QD Take 1 [facility] (PriLOSEC) 5-[address] 20 MG 00:00: (20 mg [facility]osp[facility] capsule 00 total) by l mouth daily. tamsulosin Yes [id number] .4mg QD Take 1 [facility] (FLOMAX) 5-[address] 0.4 mg 00:00: (0.4 mg [facility]osp[facility] capsule 00 total) by l mouth daily with dinner. traZODone 0 Yes [id number] 100mg QD Take 2-3 [facility] (DESYREL) 5-[address] 50 MG 00:00: (100-150 [facility]ospita tablet 00 mg total) l by mouth nightly as needed for sleep. carvediloL Yes [id number] 25mg Q.5D Take 1 M [facility] (COREG) 25 5-26 tablet (25 st MG tablet 00:00: mg total) [facility] 00 by mouth 2 l (two) times a day with meals. DULoxetine 0 Yes [id number] 60mg QD Take 1 [facility] (CYMBALTA) 5-[address] 60 MG 00:00: (60 mg [facility]ospita capsule 00 total) by l mouth daily. ferrous 0 Yes [id number] 325mg Q.5D Take 1 [facility] sulfate 325 5-[address] (65 FE) MG 00:00: (325 mg [facility] tablet 00 total) by l mouth 2 (two) times a day. gabapentin 0 Yes [id number] 400mg Q.5D Take 1 [facility] (NEURONTIN) 5-[address] 400 mg 00:00: (400 mg Hospita capsule 00 total) by l mouth 2 (two) times a day. Januvia 50 0 Yes [id number] 50mg QD Take 1 M [facility] mg tablet 5-26 tablet (50 st 00:00: mg total) Hospita 00 by mouth l daily. amIODarone 0 Yes [id number] 200mg QD Take 1 [facility] (PACERONE) 5-[address] 200 MG 00:00: (200 mg Hospita tablet 00 total) by l mouth daily. lisinopriL 0 Yes [id number] 20mg QD Take 1 M [facility] (PRINIVIL) 5-26 tablet (20 st 20 mg 00:00: mg total) Hospita tablet 00 by mouth l daily. omeprazole 0 Yes [id number] 20mg QD Take 1 [facility] (PriLOSEC) 5-[address] 20 MG 00:00: (20 mg Hospita capsule 00 total) by l mouth daily. tamsulosin 0 Yes [id number] .4mg QD Take 1 [facility] (FLOMAX) 5-[address] 0.4 mg 00:00: (0.4 mg Hospita capsule 00 total) by l mouth daily with dinner. traZODone 2021- No [id number] 100mg QD Take 2-3 [facility] (DESYREL) 5-26 10-[address] 50 MG 00:00: 00:00 (100-150 Hospita tablet 00 :00 mg total) l by mouth nightly as needed for sleep. gabapentin 2021- No 400mg Q.5D Take 400 M [facility] (NEURONTIN) 5-09 05-[address] 400 mg 00:00: 00:00 mouth 2 [facility] capsule 00 :00 (two) l times a day. gabapentin 2021-0 2021- No 400mg Q.5D Take 400 M ethodi (NEURONTIN) 5-09 05-[address] 400 mg 00:00: 00:00 mouth 2 [facility] capsule 00 :00 (two) l times a day. tamsulosin 2021- No .4mg QD Take 0.4 Me thodi (FLOMAX) 5-05 05-[address] 0.4 mg 00:00: 00:00 mouth [facility]ospita capsule 00 :00 daily with l dinner. tamsulosin 2021- No .4mg QD Take 0.4 Me thodi (FLOMAX) 5-05 05-[address] 0.4 mg 00:00: 00:00 mouth [facility]ospita capsule 00 :00 daily with l dinner. spironolact 2021- No Metho di one 06-02- st (ALDACTONE) 00:00: 00:00 Hospi ta 25 MG 00 :00 l tablet spironolact 2021- No Metho di one 06-02 st (ALDACTONE) 00:00: 00:00 Hospi ta 25 MG 00 :00 l tablet Januvia 50 2021-0 2021- No 50mg QD Take 50 mg Method[facility] mg tablet 06-[address] 00:00: 00:00 daily. Hospita 00 :00 l Januvia 50 2021-0 2- No 50mg QD Take 50 mg [facility] mg tablet 06-01- by mouth st 00:00: 00:00 daily. Hospita 00 :00 l FreeStyle 2021-0 Yes Methodi Lite Strips 4-16 st strip test 00:00: Hospita strips 00 l FreeStyle 2-0 Yes [facility] Lite Strips 4-16 st strip test 00:00: Hospita strips 00 l traZODone 2021-0 2021- No 100mg QD Take Method i (DESYREL) 04-08- 100-[address] 50 MG 00:00: 00:00 by mouth [facility]ospita tablet 00 :00 nightly as l needed for sleep. traZODone 2021-0 2021- No 100mg QD Take Method i (DESYREL) -05 10- 100-[address] 50 MG 00:00: 00:00 by mouth [facility]ospita tablet 00 :00 nightly as l needed for sleep. traMADoL 0 Yes 50mg Q.5D Take 50 mg Met hodi (ULTRAM) 50 3-[address] mg tablet 00:00: (two) Hospita 00 times a l day as needed for severe pain. traMADoL Yes 50mg Q.5D Take 50 mg Met hodi (ULTRAM) 50 3-[address] mg tablet 00:00: (two) Hospita 00 times a l day as needed for severe pain. Vital Signs Vital Name Observation Time Observation Value Comments Source Body height 2022-01-27 16:16:00 172.7 cm Universi ty [facility] Body weight 2022-01-27 16:16:00 77.565 kg Universi ty [facility] BMI 2022-01-27 16:16:00 26.00 kg/m2 Universi ty [facility] Heart rate 2022-01-11 19:00:00 62 /min Universi ty [facility] Respiratory rate 2022-01-11 19:00:00 15 /[facility] in 2022-01-11 19:00:00 95 /min University of Arterial blood by [place] [facility] Pulse oximetry Branch Systolic blood 2022-01-11 18:00:00 145 mm[Hg] Univer sity of [facility] Diastolic blood 2022-01-11 18:00:00 73 mm[Hg] Unive rsity of [facility] Body temperature 2022-01-11 18:00:00 36.67 Kathya [facility] Body weight 2022-01-11 02:00:00 77.973 kg Universi [facility] BMI 2022-01-11 02:00:00 26.14 kg/m2 Universi [facility] Body height 2022-01-09 17:30:00 172.7 cm Universi [facility] Systolic blood 2022-01-09 16:50:00 145 mm[Hg] Univer sity of [facility] Diastolic blood 2022-01-09 16:50:00 76 mm[Hg] Unive rsity of [facility] Heart rate 2022-01-09 16:50:00 80 /min Universi ty [facility] Respiratory rate 2022-01-09 16:50:00 13 /min [facility] in 2022-01-09 16:50:00 95 /min [facility] of Arterial blood by [place] [employer] [facility] Pulse oximetry Branch Body temperature 2022-01-09 16:14:00 36.72 Kathya Univ ers[facility] Body weight 2022-01-02 20:00:00 76.204 kg [facility]i [facility] BMI 2022-01-02 20:00:00 26.47 kg/m2 [facility] Systolic blood 2021-12-26 15:51:00 163 mm[Hg] Univer sity of pressure [facility] Diastolic blood 2021-12-26 15:51:00 95 mm[Hg] Unive rsity of pressure [facility] Heart rate 2021-12-26 15:50:00 64 /min [facility]i [facility] Body temperature 2021-12-26 15:50:00 36.56 Kathya Univ ersity [facility] Body height 2021-12-26 15:50:00 172.7 cm [facility]i [facility] Body weight 2021-12-26 15:50:00 71.215 kg [facility] BMI 2021-12-26 15:50:00 23.87 kg/m2 [facility] Oxygen saturation in 2021-12-26 15:50:00 99 /min University of Arterial blood by [facility] Pulse oximetry Branch Systolic blood 2021-12-19 20:16:00 152 mm[Hg] Univer sity of pressure [facility] Diastolic blood 2021-12-19 20:16:00 83 mm[Hg] Unive rsity of pressure [facility] Heart rate 2021-12-19 20:16:00 66 /min Universi ty [facility] Oxygen saturation in 2021-12-19 20:16:00 97 /min University of Arterial blood by [facility] Pulse oximetry Branch Body temperature 2021-12-19 20:15:00 36.83 Kathya Univ ersity of [facility] Respiratory rate 2021-12-19 20:15:00 17 /min Univ ersity of [facility] Body height 2021-12-19 20:15:00 172.7 cm Per Pt [facility]i [facility] Body weight 2021-12-19 20:15:00 71.532 kg [facility] BMI 2021-12-19 20:15:00 23.98 kg/m2 [facility] Systolic blood 2021-12-14 19:50:00 152 mm[Hg] Univer sity of pressure [facility] Diastolic blood 2021-12-14 19:50:00 87 mm[Hg] Unive rsity of pressure [facility] Heart rate 2021-12-14 19:50:00 62 /min Universi ty [facility] Respiratory rate 2021-12-14 19:50:00 18 /min Univ ersity of [facility] Body height 2021-12-14 19:49:00 172.7 cm Universi ty [facility] Body weight 2021-12-14 19:49:00 77.111 kg [facility] BMI 2021-12-14 19:49:00 25.85 kg/m2 Universi ty of [facility] Systolic blood 2021-11-28 20:54:00 166 mm[Hg] Univer sity of pressure [facility] Diastolic blood 2021-11-28 20:54:00 84 mm[Hg] Unive rsity of pressure [facility] Heart rate 2021-11-28 20:53:00 61 /min Universi ty [facility] Body temperature 2021-11-28 20:53:00 37.11 Kathya Univ ersity of [place] [facility] [place] Body height 2021-11-28 20:53:00 172.7 cm Universi [facility] Body weight 2021-11-28 20:53:00 71.215 kg [facility] [place] [facility] BMI 2021-11-28 20:53:00 23.87 kg/m2 Universi ty of [facility] Oxygen saturation in 2021-11-28 20:53:00 99 /min University Arterial blood by [facility] Pulse oximetry Branch Systolic blood 2021-11-01 18:08:00 133 mm[Hg] Univer sity of pressure [facility] Diastolic blood 2021-11-01 18:08:00 70 mm[Hg] Unive rsity of pressure [facility] Heart rate 2021-11-01 18:08:00 64 /min Universi ty [facility] [place] [facility] [place] Body temperature 2021-11-01 18:08:00 37.28 Kathya Univ ersity of [facility] Respiratory rate 2021-11-01 18:08:00 12 /min Univ ersity of [facility] Body height 2021-11-01 18:08:00 172.7 cm Universi ty [facility] Body weight 2021-11-01 18:08:[address] [facility] BMI 2021-11-01 18:08:00 23.98 kg/m2 [facility] Oxygen saturation in 2021-11-01 18:08:00 98 /min University Arterial blood by [facility] Pulse oximetry Branch Systolic blood 2021-09-02 15:10:00 129 mm[Hg] Univer sity of pressure [facility] Diastolic blood 2021-09-02 15:10:00 63 mm[Hg] [facility] Heart rate 2021-09-02 15:10:00 63 /min [facility] Systolic blood 2021-09-02 15:10:00 129 mm[Hg] Univer sity of [facility] Diastolic blood 2021-09-02 15:10:00 63 mm[Hg] [facility] Heart rate 2021-09-02 15:10:00 63 /min Universi [facility] Systolic blood 2021-07-18 20:46:00 106 mm[Hg] Method ist [facility] pressure Diastolic blood 2021-07-18 20:46:00 66 mm[Hg] [facility] pressure Heart rate 2021-07-18 20:46:00 65 /min [facility] Respiratory rate 2021-07-18 20:46:00 18 /min [facility] Body height 2021-07-18 20:46:00 172.7 cm [facility] Body weight 2021-07-18 20:46:00 74.027 kg [facility] BMI 2021-07-18 20:46:00 24.81 kg/m2 [facility] Oxygen saturation in 2021-07-18 20:46:00 97 /min [facility] Arterial blood by Pulse oximetry Procedures Procedure Date / Time Performing Clinician Source Performed COVID-19 (ID NOW RAPID 2022-01-11 18:27:00 Tatyana Sweeney [facility] POCT GLUCOSE (AUTOMATED) 2022-01-11 17:40:00 Tatyana Sweeney [facility] POCT GLUCOSE (AUTOMATED) 2022-01-11 13:58:00 Tatyana Sweeney [facility] MAGNESIUM 2022-01-11 11:49:00 Tatyana Sweeney [facility] BASIC METABOLIC PANEL (NA, 2022-01-11 11:49:00 Tatyana Sweeney [facility] K, CL, CO2, GLUCOSE, BUN, Medica l Branch CREATININE, CA) CBC WITH DIFF 2022-01-11 11:49:00 Tatyana Sweeney [facility] POCT GLUCOSE (AUTOMATED) 2022-01-11 03:02:00 Tatyana Sweeney [facility] TROPONIN I 2022-01-10 22:49:00 Tatyana Sweeney [facility] TROPONIN I 2022-01-10 22:49:00 Tatyana Sweeney [facility] POCT GLUCOSE (AUTOMATED) 2022-01-10 22:16:00 Tatyana Sweeney [facility] POCT GLUCOSE (AUTOMATED) 2022-01-10 22:16:00 Tatyana Sweeney [facility] TROPONIN I 2022-01-10 19:58:00 Tatyana Sweeney [facility] TROPONIN I 2022-01-10 19:58:00 Tatyana Sweeney [facility] POCT GLUCOSE (AUTOMATED) 2022-01-10 19:54:00 Tatyana Sweeney [facility] TRANSTHORACIC ECHO (TTE) 2022-01-10 19:53:41 Tatyana Sweeney [facility] TRANSTHORACIC ECHO (TTE) 2022-01-10 19:53:41 Tatyana Sweeney [facility] POCT GLUCOSE (AUTOMATED) 2022-01-10 13:34:00 Tatyana Sweeney [facility] POCT GLUCOSE (AUTOMATED) 2022-01-10 13:34:00 Tatyana Sweeney [facility] CBC WITH DIFF 2022-01-10 09:52:00 Suki Kirkpatrick [facility] CBC WITH DIFF 2022-01-10 09:52:00 Suki Kirkpatrick [facility] POCT GLUCOSE (AUTOMATED) 2022-01-10 06:02:00 Tatyana Sweeney [facility] POCT GLUCOSE (AUTOMATED) 2022-01-10 06:02:00 Tatyana Sweeney [facility] URINALYSIS 2022-01-10 04:07:00 [facility] URINALYSIS 2022-01-10 04:07:00 [facility] URINE CULTURE 2022-01-10 04:07:00 [facility] MRSA / MSSA SCREEN BY PCR, 2022-01-10 04:06:00 Suki Kirkpatrick [facility] POCT GLUCOSE (AUTOMATED) 2022-01-10 02:49:00 Tatyana Sweeney [facility] POCT GLUCOSE (AUTOMATED) 2022-01-10 02:49:00 Tatyana Sweeney [facility] POCT GLUCOSE (AUTOMATED) 2022-01-09 17:38:00 Tatyana Sweeney [facility] POCT GLUCOSE (AUTOMATED) 2022-01-09 17:38:00 Tatyana Sweeney [facility] XR HIP 1 VW BILATERAL 2022-01-09 17:05:11 Suki Kirkpatrick [facility] XR HIP 1 VW BILATERAL 2022-01-09 17:05:11 Suki Kirkpatrick [facility] HB ABO GROUPING 2022-01-09 13:22:00 Suki Kirkpatrick [facility] HB ABO GROUPING 2022-01-09 13:22:00 Suki Kirkpatrick [facility] TOTAL HIP ARTHROPLASTY 2022-01-09 13:17:00 Suki Kirkpatrick [facility] TOTAL HIP ARTHROPLASTY 2022-01-09 13:17:00 Suki Kirkpatrick [facility] POCT GLUCOSE (AUTOMATED) 2022-01-09 13:10:00 Suki Kirkpatrick [facility] POCT GLUCOSE (AUTOMATED) 2022-01-09 13:10:00 Suki Kirkpatrick [facility] DAY SURGERY - ADC 2022-01-09 06:01:00 Doctor Unassigned, [facility] [place] [facility] URINALYSIS 2022-01-06 15:52:00 Suki Kirkpatrick [facility] CBC WITH DIFF 2022-01-06 15:48:00 Suki Kirkpatrick [facility] BASIC METABOLIC PANEL (NA, 2022-01-06 15:43:00 Suki Kirkpatrick [facility] K, CL, CO2, GLUCOSE, BUN, Medica l Branch CREATININE, CA) XR CHEST 2 VW 2022-01-06 15:09:00 Suki Kirkpatrick [facility] ASSIGNMENT OF BENEFITS 2022-01-06 14:45:12 Doctor Unassigned, [facility] Name [facility] EXTERNAL PROVIDER RECORDS 2021-12-28 06:01:00 Doctor Unassigned, [facility] Name [facility] DSU PRE-OP 2021-12-28 06:01:00 [facility] EXTERNAL PROVIDER RECORDS 2021-12-28 06:01:00 Doctor Unassigned, [facility] Name [facility] DSU PRE-OP 2021-12-28 06:01:00 [facility] XR CERVICAL SPINE 2 VW 2021-11-01 19:00:00 Dequan Navas [facility] RETICULOCYTE COUNT, 2021-07-21 21:37:00 [facility] AUTOMATED CBC WITH PLATELET AND 2021-07-21 21:37:[address] [facility] DIFFERENTIAL TOTAL IRON BINDING 2021-07-21 21:37:[address] [facility] [place] CAPACITY FOLATE LEVEL 2021-07-21 21:37:00 [facility] HEPATITIS B SURFACE 2021-07-21 21:37:00 [facility] ANTIBODY HIV 1/2 ANTIGEN/ANTIBODY, 2021-07-21 21:37:00 [facility] FOURTH GENERATION W/RFL POTASSIUM LEVEL 2021-07-21 21:37:00 [facility] GGT 2021-07-21 21:37:00 [facility] VITAMIN B12 LEVEL 2021-07-21 21:37:00 King, [facility] FERRITIN LEVEL 2021-07-21 21:37:00 King, [facility] HEPATITIS B SURFACE 2021-07-21 21:37:00 King, [facility] ANTIGEN HEPATITIS A ANTIBODY TOTAL 2021-07-21 21:37:00 King, [facility] ERIK 2021-07-21 21:37:00 King, [facility] CORTISOL LEVEL, PM 2021-07-21 21:37:00 King, [facility] ALPHA-1 ANTITRYPSIN LEVEL 2021-07-21 21:37:00 King, [facility] HEMOGLOBINOPATHY 2021-07-21 21:37:00 King, [facility] FRACTIONATION CASCADE ANTI-SMOOTH MUSCLE 2021-07-21 21:37:00 King, [facility] ANTIBODY ANTI MITOCHONDRIA SCREEN 2021-07-21 21:37:00 King, [facility] VITAMIN B1 LEVEL, WHOLE 2021-07-21 21:37:00 King, [facility] BLOOD CBC WITH PLATELET AND 2021-07-01 14:37:00 King, [facility] DIFFERENTIAL COMPREHENSIVE METABOLIC 2021-07-01 14:37:00 [facility] PANEL LIPID PANEL 2021-07-01 14:37:00 King, [facility] MICROALBUMIN / CREATININE 2021-07-01 14:37:00 [facility] URINE RATIO HEMOGLOBIN A1C 2021-07-01 14:37:00 King, [facility] VITAMIN D 25 HYDROXY LEVEL 2021-07-01 14:37:00 [facility] TSH REFLEX TO T4F 2021-07-01 14:37:00 [facility] T4 FREE (EVERT HIST) 2021-07-01 14:37:[address] [facility] Plan of Care Planned Activity Planned Date Details Comments Source Future Scheduled 2022-01-17 COVID-19 VACCINE (#1) [facility] Test 10:42:26 [code = COVID-19 VACCINE (#1)] Future Scheduled 2022-01-17 65+ P[facility]UMOCOCCAL [facility] Test 10:42:26 VACCINE (1 - PCV) [code = 65+ PNEUMOCOCCAL VACCINE (1 - PCV)] Future Scheduled 2022-01-17 DIABETES: RETINAL EYE [facility] Test 10:42:26 EXAM [code = DIABETES: RETINAL EYE EXAM] Future Scheduled 2022-01-17 DIABETIC FOOT EXAM [facility] Test 10:42:26 [code = DIABETIC FOOT EXAM] Future Scheduled 2022-01-17 Hepatitis C screening [facility] Test 10:42:26 (procedure) [code = 881192446] Future Scheduled 2022-01-17 SHINGLES VACCINES (1 Met [facility] Test 10:42:26 of 2) [code = SHINGLES VACCINES (1 of 2)] Future Scheduled 2022-01-17 COLONOSCOPY SCREENING [facility] Test 10:42:26 [code = COLONOSCOPY SCREENING] Future Scheduled 2022-01-17 INFLUENZA VACCINE Method [facility] Test 10:42:26 [code = INFLUENZA VACCINE] Future Scheduled 2021-10-04 HEPATITIS B VACCINES Met [facility] Test 14:25:14 (1 of 3 - 3-dose series) [code = HEPATITIS B VACCINES (1 of 3 - 3-dose series)] Future Scheduled 2021-10-04 COVID-19 VACCINE (#1) [facility] Test 14:25:14 [code = COVID-19 VACCINE (#1)] Future Scheduled 2021-10-04 65+ [facility]CCAL [facility] 14:25:14 VACCINE (1 - PCV) [code = 65+ PNEUMOCOCCAL VACCINE (1 - PCV)] Future Scheduled 2021-10-04 DIABETES: RETINAL EYE [facility] Test 14:25:14 EXAM [code = DIABETES: RETINAL EYE EXAM] Future Scheduled 2021-10-04 DIABETIC FOOT EXAM [facility] Test 14:25:14 [code = DIABETIC FOOT EXAM] Future Scheduled 2021-10-04 Hepatitis C screening [facility] Test 14:25:14 (procedure) [code = [id number]] Future Scheduled 2021-10-04 SHINGLES VACCINES (1 Met [facility] Test 14:25:14 of 2) [code = SHINGLES VACCINES (1 of 2)] Future Scheduled 2021-10-04 [facility]ING [facility] 14:25:14 [code = COLONOSCOPY SCREENING] Future Scheduled 2021-10-04 INFLUENZA VACCINE Method [facility] Hospital Test 14:25:14 [code = INFLUENZA VACCINE] Encounters Start End Encounter Admission Attending Care Care Encounter Source Date/Time Date/Time Type Type Clinicians Facility Department ID 2022-12-19 2022-12-19 Outpatient [facility] [id number] Univers 14:00:00 14:00:00 SAMLITO daniel o f [facility] 2022-02-16 2022-02-16 Outpatient R PADMA [facility] [id number] Univers 11:40:00 11:40:00 ARIANE [facility] 2022-01-27 2022-01-27 Outpatient R KAYA [facility] [id number] Univers 10:30:00 10:49:43 SUKI sanchez [facility] 2022-01-27 2022-01-27 Office Alma Rosa Carrera [facility] 1..840.114 [id number] Univers 10:30:00 10:45:00 Visit Kirkpatrick Suki Reyes [employer] [id number] ity of [place] [id number] Harshad as MARGI?BLEA [id number] [address] MEDICAL OFFICE BUILDING 2022-01-26 2022-01-26 Outpatient R YINA [facility] [id number] Univers 10:00:00 10:00:00 KELSEA sanchez [facility] 2022-01-12 2022-01-12 Patient Guillermo [facility] [id number] Univers 00:00:00 00:00:00 Outreach Nelia [employer] [id number] i ty of [place] [id number] Harshad as MARGI?BLEA [id number] [address] MEDICAL OFFICE BUILDING 2022-01-12 2022-01-12 Telephone Yina [facility] [id number] Univers 00:00:00 00:00:00 Kelsea HEALTH [id number] ity [facility] [id number] Harshad as MARGI?BLEA [id number] Ri sonya WEBSTER [address] [place] [address] MEDICAL OFFICE BUILDING 2022-01-09 2022-01-11 Outpatient Sarah [facility] [id number] Univers 06:55:00 14:17:00 SUKI sanchez [facility] 2022-01-09 2022-01-11 [facility] Suki Kirkpatrick [facility] 1.2.840 .114 [id number] Univers 06:55:00 14:17:00 Encounter Tatyana Sweeney [id number] it[place] of [id number] [id number] [facility] [address] Branch 2022-01-09 2022-01-09 Surgery [facility] [id number] Univers 07:25:00 10:50:00 Suki SNELL [id number] i ty of [id number] [id number] [facility] 0[address] Branch 2022-01-09 2022-01-09 Orders Doctor ROBEL 1.2.840.114 [id number] Univers 00:00:00 00:00:00 Only Unassigned, [place] [id number] ity of [place] [facility] [id number] Harshad as [id number] [facility] [address] [facility] [place] 2022-01-06 2022-01-06 Outpatient [facility] [id number] Univers 08:47:08 23:59:00 SUKI sanchez [facility] 2022-01-06 2022-01-06 Outpatient R [facility] [id number] Univers 10:15:00 10:15:00 SUKIRENU sanchez [facility] 2022-01-06 2022-01-06 [facility] 1.2.840.114 [id number] Univers 08:30:00 08:46:00 Encounter Suki SNELL [id number] ity of [id number] [id number] [facility] [address] [place] 2022-01-06 2022-01-06 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 Laron, Lucie Lab Main [facility] 1.2.8 [id number] Univers 08:00:00 08:15:00 Visit Kaya Suki Amy SNELL [id number] ity of [facility] 4.[place] [id number] Ri dical [facility] [address] [facility] 2022-01-06 2022-01-06 Orders Doctor ROBEL [id number] [id number] Univers 00:00:00 00:00:00 Only Unassigned, [place] [id number] ity of [place] [facility] [id number] Harshad as [id number] [address] 2022-01-06 2022-01-06 Case Agustin [facility] 1.2.840.114 [id number] Univers 00:00:00 00:00:00 Management [place] [id number] ity of [facility] [id number] [id number] Ri dical [facility] [address] [employer] 2022-01-03 2022-01-03 Outpatient R NAILA GIRALDO [facility] [id number] Univers 13:30:00 13:30:00 NAILA GIRALDO [facility] 2022-01-02 2022-01-02 Patient Guillermo [facility] 1.2.840.114 [id number] Univers 00:00:00 00:00:00 Outreach Nelia Reyes [facility] [id number] i ty of [place] [id number] Harshad as MARGI?BLEA [id number] [facility] [address] [place] MEDICAL OFFICE BUILDING 2021-12-26 2021-12-26 Outpatient R YINA [facility] [id number] Univers 10:00:00 10:38:10 KELSEA alonzoy [facility] 2021-12-26 2021-12-26 Office [facility] 1.2.840.114 [id number] Univers 10:00:00 10:38:10 Visit [facility] [id number] ity of [facility] [id number] Harshad as MARGI?BLEA [id number] Me sonya WE[facility]STER [address] [facility] OFFICE [facility] 2021-12-26 2021-12-26 Prep For Kaya [facility] 1.2.840.114 [id number] Univers 00:00:00 00:00:00 Surgery [facility] [id number] it y of [place] 4.2.7.2.686 Harshad as MARGI?BLEA [phone] Ri sonya WEBSTER [address] [facility] OFFICE [facility] 2021-12-26 2021-12-26 Telephone Yina [facility] 1.2.709.339 [id number] [id number] Univers 00:00:00 00:00:00 [facility] 350.1.13.10 ity of [facility] 4.2.7.2.686 Harshad as MARGI?BLEA [phone] Ri sonya WEBSTER 044 [facility] 2021-12-26 2021-12-26 Patient Earle [facility] 1.2.840.114 [id number] Univers 00:00:00 00:00:00 Outreach Noy Smith [place] 350.1.13.10 ity of [facility] [place] [phone] Ri sonya HENDERSON [address] [place] [address] 2021-12-21 2021-12-21 Outpatient R YINA [facility] [id number] Univers 13:30:00 13:30:00 [facility] 2021-12-20 2021-12-20 Telephone [facility] 1.2.338.438 [id number] [id number] Univers 00:00:00 00:00:00 [facility] 350.1.13.10 it y of [facility] 4.2.7.2.686 Harshad as MARGI?BLEA [phone] Ri sonya WEBSTER 198 [facility] 2021-12-19 2021-12-19 Outpatient R SERGIO [facility] [id number] Univers 14:00:00 14:42:54 APURVA pressley f [facility] 2021-12-19 2021-12-19 Office [facility] 1.2.840.114 [id number] Univers 14:00:00 14:42:54 Visit Apurva [facility] 350.1.13.10 ity of [facility] [place] [phone] Ri sonya HENDERSON 059 [employer] 2021-12-19 2021-12-19 Letter [facility] 1.2.840.114 [id number] Univers 00:00:00 00:00:00 (Out) Alma Rosa S HEALTH 350.1.13.10 it y of [place] 4.2.7.2.686 Harshad as MARGI?BLEA [phone] Ri sonya WEBSTER [address] [facility] OFFICE [facility] 2021-12-19 2021-12-19 Telephone [facility] 1.2.378.715 [id number] 5841 Univers 00:00:00 00:00:00 Alma Rosa S HEALTH 350.1.13.10 it y of [place] 4.2.7.2.686 Harshad as MARGI?BLEA [phone] Ri sonya WEBSTER 198 [facility] 2021-12-15 2021-12-15 Telephone [facility] 1.2.359.271 6460 3786 Univers 00:00:00 00:00:00 Alma Rosa S HEALTH 350.1.13.10 it y of [place] 4.2.7.2.686 Harshad as MARGI?BLEA [phone] Ri sonya WEBSTER 198 [facility] 2021-12-14 2021-12-14 Outpatient Sarah CARRERA [facility] [id number] Univers 13:30:00 15:49:56 [facility] 2021-12-14 2021-12-14 Office [facility] 1.2.840.114 [id number] Univers 13:30:00 15:49:56 Visit Alma Rosa S HEALTH 350.1.13.10 it y of [place] 4.2.7.2.686 Harshad as MARGI?BLEA [phone] Ri sonya WEBSTER [address] [place] [address] 2021-12-06 2021-12-06 Outpatient Sarah CARRERA [facility] [id number] Univers 13:30:00 13:30:00 [facility] 2021-12-05 2021-12-05 Ernie Sher [facility] 1.2.840.114 [id number] Univers 00:00:00 00:00:00 [facility] 350.1.13.10 ity of [place] 4.2.7.2.686 Harshad as MARGI?BLEA [phone] [address] OFFICE [facility] 2021-12-04 2021-12-04 Refill Raquel, 1.2.840.1 [id number] 60519 Methodi 00:00:00 00:00:[address] 3.430.2.7 Hospit a .3.869211 l .8 2021-11-30 2021-11-30 Telephone [facility] 1.2.207.514 [id number] Univers 00:00:00 00:00:00 [facility] 350.1.13.10 ity of [place] 4.2.7.2.686 Harshad as MARGI?BLEA [phone] [address] 2021-11-28 2021-11-28 Outpatient R [facility] [id number] Univers 15:20:00 16:42:20 [facility] 2021-11-28 2021-11-28 Office [facility] 1.2.840.114 [id number] Univers 15:20:00 16:42:20 Visit [facility] 350.1.13.10 ity of [place] 4.2.7.2.686 Harshad as MARGI?BLEA [phone] [address] OFFICE [facility] 2021-11-25 2021-11-25 Telephone King, 1.2.840.1 [id number] Methodi 00:00:00 00:00:[address] 3.430.2.7 Hospit a .3.630809 l .8 2021-11-25 2021-11-25 Telephone [facility] 1.2.840.114 [id number] [id number] Univers 00:00:00 00:00:00 [facility] 350.1.13.10 ity of [place] 4.2.7.2.686 Harshad as MARGI?BLEA [phone] Me dical DARIN [address] [facility] OFFICE [facility] 2021-11-25 2021-11-25 Telephone [facility] 1.2.153.361 1532 2875 Univers 00:00:00 00:00:00 Naila HEALTH 350.1.13.10 it y of [place].2.7.2.686 [place] VAZQUEZ [phone] [address] OFFICE [facility] 2021-11-24 2021-11-24 Outpatient [facility] [id number] Univers 11:00:00 11:00:00 [facility] 2021-11-15 2021-11-15 Outpatient Sarah [facility] [id number] Univers 10:30:00 10:30:00 [facility]UT [facility] 2021-11-15 2021-11-15 Travel 1.2.840.1 1.2.969.531 0249 [id number] Methodi 00:00:00 00:00:[address] 3.430.2.7 0.2.7.3.698 Ho spita .3.329315 084.8 l .8 2021-11-14 2021-11-14 Telephone [facility] 1.2.840.114 [id number] Univers 00:00:00 00:00:00 Suki L HEALTH 350.1.13.10 it y of [place] 4.2.7.2.686 Harshad as MARGI?BLEA [phone] Ri sonya WEBSTER [address] [facility] OFFICE BUILDING 2021-11-08 2021-11-08 Telephone [facility] 1.2.840.114 [id number] Univers 00:00:00 00:00:00 [facility] HEALTH 350.1.13.10 ity of [place] 4.2.7.2.686 Harshad as MARGI?BLEA [phone] Ri diccan WEBSTER [address] [facility] OFFICE [facility] 2021-11-07 2021-11-07 Telephone Raquel 1.2.840.1 [id number] Method 00:00:00 00:00:[address] 3.430.2.7 Hospit a .3.696332 l .8 2021-11-04 2021-11-04 Outpatient ERIC WRIGHT [facility] [id number] Univers 14:40:00 14:40:00 ERIC COLE [facility] 2021-11-04 2021-11-04 Outpatient ERIC WRIGHT [facility] [id number] Univers 14:40:00 14:40:00 ERIC COLE [facility] 2021-11-01 2021-11-01 Outpatient Sarah GIRALDO NAILA [facility] [id number] Univers 13:40:00 23:59:00 NAILA GIRALDO [facility] 2021-11-01 2021-11-01 Hospital [facility] 1.2.840.114 [id number] Univers 13:40:00 23:59:00 Encounter Naila HEALTH 350.1.13.10 [place] of [place] [phone] [address] ([facility]) 2021-11-01 2021-11-01 Office [facility] 1.2.840.114 [id number] Univers 13:00:00 13:38:24 Visit Naila HEALTH 350.1.13.10 it y of [place].2.[place] [phone] [address] OFFICE BUILDING 2021-10-24 2021-10-24 Telephone [facility] 1.2.425.306 [id number] 0095 Univers 00:00:00 00:00:00 Naila HEALTH 350.1.13.10 it y of [place] [phone] [address] OFFICE BUILDING 2021-10-24 2021-10-24 [facility] 1.2.437.897 3032 1227 Univers 00:00:00 00:00:00 Naila HEALTH 350.1.13.10 it y of [place] [phone] [facility] [address] OFFICE BUILDING 2021-10-18 2021-10-18 Outpatient R NAILA GIRALDO [facility] [id number] Univers 11:00:00 11:00:00 NAILA GIRALDO [facility] 2021-10-17 2021-10-17 Telephone Hipolito, [facility] 1.2.721.366 [id number] Univers 00:00:00 00:00:00 Naila RYAN 350.1.13.10 it y of [place].2.[place] [phone] [address] OFFICE BUILDING 2021-10-13 2021-10-13 Orders Doctor ROBEL 1.2.840.114 [id number] Univers 00:00:00 00:00:00 Only Unassigned, [place] 350.1.13.10 ity of [facility] 4.2.7.2.686 Harshad as [phone] [facility] [address] 2021-10-06 2021-10-06 Transition BREE Gonzalez 1.2.840.114 [id number] Univers 00:00:00 00:00:00 of Care Mamtatee ALEXANDRE 350.1.13.10 it y of [place].2.[place] [phone] [facility] [address] 2021-09-22 2021-10-05 Inpatient X NAILA GIRALDO [facility] 1 [id number] Univers 04:18:00 18:35:00 NAILA GIRALDO [facility] 2021-09-22 2021-10-05 Hospital MilagroshamaRolando 1.2.840. 114 [id number] Univers 04:18:00 18:35:00 Encounter Naila Giraldo 350.1.13.10 ity of [facility] 4.2.7.2.686 Harshad as [phone] [facility] [address] 2021-09-30 2021-09-30 Surgery MAO Giraldo 1.2.840.114 [id number] Univers 06:55:00 11:53:00 Naila HANNAH 350.1.13.[address] [facility] 4.2.7.2.686 Harshad as [phone] [address] 2021-09-26 2021-09-26 Telephone Baldwin, 1.2.840.1 [id number] Methodi 00:00:00 00:00:[address] 3.430.2.7 Hospit a .3.930866 l .8 2021-09-26 2021-09-26 Telephone Rosio, 1.2.840.1 [id number] Methodi 00:00:00 00:00:[address] 3.430.2.7 Hospit a .3.873291 l .8 2021-09-23 2021-09-23 Outpatient Sarah CARRERA [facility] [id number] Univers 08:15:00 08:15:00 ALMA ROSA [facility] 2021-09-22 2021-09-22 Inpatient X NAILA GIRALDO [facility] 1 [id number] Univers 04:18:00 04:18:00 NAILA GIRALDO [facility] 2021-09-21 2021-09-21 Telephone Raquel, 1.2.840.1 [id number] 889 [id number] Methodi 00:00:00 00:00:[address] 3.430.2.7 Hospit a .3.914217 l .8 2021-09-21 2021-09-21 Telephone Raquel, 1.2.840.1 [id number] 708 [id number] Methodi 00:00:00 00:00:[address] 3.430.2.7 Hospit a .3.551945 l .8 2021-09-14 2021-09-14 Outpatient Sarah KIRKPATRICK [facility] [id number] Univers 14:00:00 14:00:00 SUKI [facility] 2021-09-05 2021-09-05 Telephone Raquel, 1.2.840.1 [id number] 358 [id number] Methodi 00:00:00 00:00:[address] 3.430.2.7 Hospit a .3.258234 l .8 2021-09-05 2021-09-05 Telephone Raquel, 1.2.840.1 [id number] 916 [id number] Methodi 00:00:00 00:00:[address] 3.430.2.7 Hospit a .3.009698 l .8 2021-09-02 2021-09-02 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, Ang - Db [facility] 1.2.840.1 14 [id number] Univers 11:30:00 11:49:46 Visit [facility] 350.1.13. 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 11:30:00 11:45:00 Visit [facility] 350.1.13. 10 ity of [place] 4.2.7.2.686 Harshad as MARGI?BLEA [phone] [address] OFFICE [facility] 2021-09-02 2021-09-02 Outpatient R ERIC COLE [facility] [id number] Univers 10:00:00 11:34:22 ERIC COLE itUT [facility] 2021-09-02 2021-09-02 Office Douglas [facility] 1.2.840.114 [id number] Univers 10:00:00 11:34:22 Visit [facility] 350.1.13.10 ity of [facility] 4.2.7.2.686 Harshad as MARGI?BLEA [phone] [address] OFFICE [facility] 2021-09-02 2021-09-02 Office Douglas [facility] 1.2.840.114 [id number] Univers 10:00:00 11:34:22 Visit [facility] 350.1.13.10 ity of [place] 4.2.7.2.686 Harshad as MARGI?BLEA [phone] Ri sonya WEBSTER [address] [facility] OFFICE [facility] 2021-09-02 2021-09-02 Outpatient ERIC WRIGHT [facility] [id number] Univers 10:00:00 11:34:22 ERIC COLE [facility] 2021-09-02 2021-09-02 Outpatient ERIC WRIGHT [facility] [id number] Univers 11:30:00 11:30:00 ERIC COLE [facility] 2021-08-27 2021-08-[address] [facility] 1.2.840.114 [id number] Univers 00:00:00 00:00:00 Suki [facility] 350.1.13.10 it y of [place] 4.2.7.2.686 Harshad as MARGI?BLEA [phone] Ri sonya WEBSTER [address] [facility] OFFICE [facility] 2021-08-26 2021-08-26 Office [facility] 1.2.264.920 [id number] 0603 Univers 10:30:00 10:45:00 Visit [facility] 350.1.13.10 it y of [place] 4.2.7.2.686 Harshad as MARGI?BLEA [phone] Ri sonya WEBSTER [address] [facility] OFFICE [facility] 2021-08-26 2021-08-26 Outpatient R [facility] [id number] Univers 10:30:00 10:30:00 SUKI sanchez [facility] 2021-08-12 2021-08-12 Telephone Raquel 1.2.840.1 [id number] Methodi 00:00:00 00:00:[address] 3.430.2.7 Hospit a .3.410926 l .8 2021-08-12 2021-08-12 Telephone Raquel 1.2.840.1 [id number] 928 [id number] Methodi 00:00:00 00:00:[address] 3.430.2.7 Hospit a .3.479401 l .8 2021-08-05 2021-08-05 Transition BREE Gonzalez 1.2.840.114 [id number] [id number] Univers 00:00:00 00:00:00 of Brett Mamta Artis ALEXANDRE 350.1.13.10 it y of [place] 4.2.7.2.686 Shai lagos [phone] [facility] [address] 2021-08-01 2021-08-04 Hospital Jacqueline Pandya [facility] 1.2.84 0.114 [id number] Univers 10:05:00 17:48:00 Encounter Leon Hennessy 350.1.13.10 ity of [place] 4.2.7.2.[address] [facility] [phone] [facility] [address] 2021-08-01 2021-08-04 Inpatient X [facility] [id number] Univers 10:05:00 17:48:00 TATYANA sanchez [facility] 2021-08-01 2021-08-01 Telephone Rosio 1.2.840.1 [id number] 21 [id number] Methodi 00:00:00 00:00:[address] 3.430.2.7 Hospit a .3.658902 l .8 2021-08-01 2021-08-01 Telephone Rosio 1.2.840.1 [id number] 21 [id number] Methodi 00:00:00 00:00:[address] 3.430.2.7 Hospit a .3.643809 l .8 2021-07-25 2021-07-25 Telephone Robert 1.2.840.1 [id number] 21 [id number] Methodi 00:00:00 00:00:[address] [place] [address] 3.430.2.7 Hospit a .3.439562 l .8 2021-07-25 2021-07-25 Telephone Robert 1.2.840.1 [id number] 21 [id number] Methodi 00:00:00 00:00:[address] [place] [address] 3.430.2.7 Hospit a .3.253809 l .8 2021-07-22 2021-07-22 Orders King, 1.2.840.1 [id number] 03961 Methodi 00:00:00 00:00:00 Only Wondiful 90802.1.[address] 3.430.2.7 Hospit a .3.088366 l .8 2021-07-22 2021-07-22 Orders King, 1.2.840.1 [id number] 76282 Methodi 00:00:00 00:00:00 Only Wondiful 35673.1.[address] 3.430.2.7 Hospit a .3.053786 l .8 2021-07-18 2021-07-18 Office Raquel, 1.2.840.1 [id number] 12316 Methodi 15:30:00 16:33:10 Visit Wondiful 20062.1.[address] 3.430.2.7 Hospit a .3.224123 l .8 2021-07-18 2021-07-18 Office King, 1.2.840.1 [id number] 33481 Methodi 15:30:00 16:33:10 Visit Wondiful 36678.1.[address] 3.430.2.7 Hospit a .3.021044 l .8 2021-07-18 2021-07-18 Travel 1.2.840.1 1.2.078.066 0235 259627 Methodi 00:00:00 00:00:[address] 3.430.2.7 0.2.7.3.698 Ho spita .3.369054 084.8 l .8 2021-07-18 2021-07-18 Travel 1.2.840.1 1.2.573.293 5279 901234 Methodi 00:00:00 00:00:[address] 3.430.2.7 0.2.7.3.698 Ho spita .3.978005 084.8 l .8 2021-07-11 2021-07-11 Telephone Rosio, 1.2.840.1 [id number] 21 [id number] Methodi 00:00:00 00:00:[address] 3.430.2.7 Hospit a .3.893271 l .8 2021-07-11 2021-07-11 Telephone Baldwin, 1.2.840.1 [id number] 21 [id number] Methodi 00:00:00 00:00:[address] 3.430.2.7 Hospit a .3.941102 l .8 2021-07-11 2021-07-11 Travel 1.2.840.1 1.2.832.586 3862 416380 Methodi 00:00:00 00:00:[address] 3.430.2.7 0.2.7.3.698 Ho spita .3.423450 084.8 l .8 2021-07-11 2021-07-11 Telephone Rosio, 1.2.840.1 [id number] 21 [id number] Methodi 00:00:00 00:00:[address] 3.430.2.7 Hospit a .3.493130 l .8 2021-07-11 2021-07-11 Telephone Rosio, 1.2.840.1 [id number] 21 [id number] Methodi 00:00:00 00:00:[address] 3.430.2.7 Hospit a .3.716868 l .8 2021-07-11 2021-07-11 Travel 1.2.840.1 1.2.846.289 6380 187736 Methodi 00:00:00 00:00:[address] 3.430.2.7 0.2.7.3.698 Ho spita .3.509423 084.8 l .8 2021-07-01 2021-07-01 Orders King, 1.2.840.1 [id number] 52033 55307 Methodi 00:00:00 00:00:00 Only Wondiful 54629.1.[address] 3.430.2.7 Hospit a .3.912603 l .8 2021-07-01 2021-07-01 Orders King, 1.2.840.1 [id number] 37595 Methodi 00:00:00 00:00:00 Only Wondiful 78787.1.[address] 3.430.2.7 Hospit a .3.847043 l .8 2021-07-01 2021-07-01 Telephone King, 1.2.840.1 [id number] 280 [id number] Methodi 00:00:00 00:00:[address] 3.430.2.7 Hospit a .3.453454 l .8 2021-07-01 2021-07-01 Telephone King, 1.2.840.1 [id number] 874 [id number] Methodi 00:00:00 00:00:[address] 3.430.2.7 Hospit a .3.697582 l .8 2021-07-01 2021-07-01 Telephone King, 1.2.840.1 [id number] 701 1407499 Methodi 00:00:00 00:00:[address] 3.430.2.7 Hospit a .3.168188 l .8 2021-07-01 2021-07-01 Telephone Raquel, 1.2.840.1 [id number] 986 [id number] Methodi 00:00:00 00:00:[address] 3.430.2.7 Hospit a .3.273461 l .8 2021-06-30 2021-06-30 Office King, 1.2.840.1 [id number] 88556 79481 Methodi 14:30:00 15:33:50 Visit Wondiful 79214.1.[address] 3.430.2.7 Hospit a .3.791370 l .8 2021-06-30 2021-06-30 Office Raquel, 1.2.840.1 [id number] 00172 21844 Methodi 14:30:00 15:33:50 Visit Edgardo 87112.1.[address] 3.430.2.7 Hospit a .3.464427 l .8 2021-06-30 2021-06-30 Travel 1.2.840.1 1.2.397.515 4665 710078 Methodi 00:00:00 00:00:[address] 3.430.2.7 0.2.7.3.698 Ho spita .3.867059 084.8 l .8 2021-06-30 2021-06-30 Travel 1.2.840.1 1.2.459.473 1047 019620 Methodi 00:00:00 00:00:[address] 3.430.2.7 0.2.7.3.698 Ho spita .3.491104 084.8 l .8 2021-06-28 2021-06-28 Travel 1.2.840.1 1.2.810.908 4579 406827 Methodi 00:00:00 00:00:[address] 3.430.2.7 0.2.7.3.698 Ho spita .3.830520 084.8 l .8 2021-06-28 2021-06-28 Travel 1.2.840.1 1.2.961.422 5833 635344 Methodi 00:00:00 00:00:[address] 3.430.2.7 0.2.7.3.698 Ho spita .3.031230 084.8 l .8 Results Test Description Test Time Test Comments Results Result Comments Source POCT GLUCOSE (AUTOMATED) 2022-01-11 17:42:43 Test Item Value Reference Range Interpretation Comme nts POCT GLU (test code = 9808912069) 196 mg/dL 70-110 H Lab Interpretation (test code = 64251-6) Abnormal [facility] GLUCOSE (AUTOMATED)2022-01-11 14:47:47 Test Item Value Reference Range Interpretation Comments POCT GLU (test code = 4499492554) 193 mg/dL 70-110 H Lab Interpretation (test code = Abnormal 93586-0) [facility] GLUCOSE (AUTOMATED)2022-01-11 14:01:08 Test Item Value Reference Range Interpretation Comments POCT GLU (test code = 9506892292) 203 mg/dL 70-110 H Lab Interpretation (test code = Abnormal 73454-4) [facility] GLUCOSE (AUTOMATED)2022-01-11 03:05:15 Test Item Value Reference Range Interpretation Comments POCT GLU (test code = 0121543921) 204 mg/dL 70-110 H Lab Interpretation (test code = Abnormal 13773-2) [facility] [id number] 23:29:20 Test Item Value Reference Interpretation Comments Range TROPONIN I (test 0.007 ng/mL See_Comment [Automated code = 2176719209) message] The system which generated this result [...] biotin. Lab Interpretation Normal (test code = 99854-4) [facility] [id number] 23:29:20 Test Item Value Reference Interpretation Comments Range TROPONIN I (test 0.007 ng/mL See_Comment [Automated code = 9385868467) message] The system which generated this result [...] biotin. Lab Interpretation Normal (test code = 50336-2) [facility] GLUCOSE (AUTOMATED)2022-01-10 22:32:55 Test Item Value Reference Range Interpretation Comments POCT GLU (test code = 3158628150) 229 mg/dL 70-110 H Lab Interpretation (test code = Abnormal 75688-3) [facility] GLUCOSE (AUTOMATED)2022-01-10 22:32:55 Test Item Value Reference Range Interpretation Comments POCT GLU (test code = 1073921472) 229 mg/dL 70-110 H Lab Interpretation (test code = Abnormal 32944-1) [facility]44 Test Item Value Reference Range Interpretation Comments Height (test code = in 3183317656) Weight (test code = lbs 5338099798) Systolic BP (test code = mmHg 3213624370) Diastolic BP (test code mmHg = 1840633293) Heart Rate (test code = bpm 5336468013) BSA (test code = 1.93 m2 9377414671) Ao root diam (test code 3.90 cm = 4337757848) Aortic root (test code = 3.9 cm 2346982567) Ao root annulus (test 3.9 cm code = 5828649262) LVOT diameter (test code 2.20 cm = 2844703870) LVOT area (test code = 3.80 cm2 2732976813) LVIDD (test code = 3.80 cm 5561993935) Left Ventricular End 63.9 mL Diastolic Volume by Teichholz Method (test code = 2428817) IVS (test code = 1.18 cm 0361063476) Interventricular Septum 1.18 cm Diastolic Thickness by 2D (test code = 1853387) LVPWD (test code = 1.19 cm 7608960349) PW (test code = 1.19 cm 0.6-1.5 9704323514) EF(Teich) (test code = 54.00 % 4681580263) LVIDS (test code = 2.80 cm 1629409981) Left Ventricular End 29.4 mL Systolic Volume by Teichholz Method (test code = 6809087) FS (test code = 27 % 4850617237) EF - 2D (test code = 54.00 % 91315522) LA size (test code = 4.6 cm 4512200187) TR Peak Frank (test code = 233.1 cm/s 5444324233) Triscuspid Valve mmHg Regurgitation Peak Gradient (test code = 4415059881) LAV(MOD-sp4) (test code 90.80 mL = 5468938790) E wave decelartion time 0.24 s (test code = 1748443617) MV stenosis pressure 1/2 73.8 ms time (test code = 9919206203) MV Peak A Frank (test code 97.8 cm/s = 5464212479) MV Peak E Frank (test code 96.6 cm/s = 4020599756) E/A ratio (test code = ratio 4072946706) MV Prop V (test code = 21.00 cm/s 4545281984) MV E/e' septal (test 10.2 cm/s code = 1396145260) Tapse (test code = 1.88 cm 8844441764) LVOT stroke volume (test 72.40 cm3 code = 1723990129) LVOT peak frank (test code 85.7 cm/s = 0466902335) LVOT mn grad (test code mmHg = 9487982482) AV LVOT peak gradient mmHg (test code = 1357171272) LVOT peak VTI (test code 19.0 cm = 1649763018) LV V1 mean (test code = 61.60 cm/s 6964750030) Aortic valve mean 101.1 cm/s velocity (test code = 8352850146) Ao peak frank (test code = 137.0 cm/s 4258521271) Ao VTI (test code = 27.4 cm 5949594676) AV area by cont VTI 2.6 cm2 (test code = 1224143402) AV area peak frank (test 2.4 cm2 code = 7505441854) Ao max PG (test code = 7.50 mm[Hg] 4998600155) AV peak gradient (test mmHg code = 2752519731) AV valve area (test code 2.60 cm2 = 3431694713) AV mean gradient (test mmHg code = 3527560997) Radiology Study observation (narrative) (test code = 08653-7) ADD (test code = ADD) Addendum by Martinez Reyes MD on 01/10/2022 5:25 PM 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 Normal wall thickness. Normal wall motion. Normal systolic function with a visually estimated EF of 60 - 65%. Indeterminate diastolic function. ?Right?Ventricle: Normal systolic function. ?Tricuspid?Valve: Right ventricular systolic pressure = 20 mmHg + RA pressure. ?Aortic?Valve: No evidence of aortic stenosis. ?Left?Atrium: Left atrium is mildly dilated. ?IVC/SVC: IVC was not well visualized. Carrie [place]anson VentricleLeft ventricle size is normal. Normal wall thickness. Normal wall motion. Normal systolic function with a visually estimated EF of 60 - 65%. Indeterminate diastolic function.Right VentricleRight ventricle size is normal. Normal systolic function.Left AtriumLeft atrium is mildly dilated.Right AtriumRight atrium size is normal. There is a prominent Eustachian valve.IVC/SVCIVC was not well visualized.Mitral ValveMitral valve structure is normal. Mild posterior mitral annular calcification. Trace transvalvular regurgitation.Tricusp id ValveTricuspid valve structure is normal. Trace transvalvular regurgitation. Right ventricular systolic pressure = 20 mmHg + RA pressure. No stenosis.Aortic ValveNo transvalvular regurgitation. No evidence of aortic stenosis.Pulmonic ValveNot well visualized.Ascending AortaNormal sized annulus and sinus of Valsalva.PericardiumT he pericardium is normal. No pericardial effusion.Study DetailsStudy quality was adequate. A complete echocardiogram was performed using 2D, color flow Doppler and spectral Doppler. [facility] 21:45:44 Test Item Value Reference Range Interpretation Comments Height (test code = in 6781394429) Weight (test code = lbs 2660477954) Systolic BP (test code = mmHg 9930749024) Diastolic BP (test code mmHg = 9511180759) Heart Rate (test code = bpm 9345664467) BSA (test code = 1.93 m2 6608241893) Ao root diam (test code 3.90 cm = 1226773180) Aortic root (test code = 3.9 cm 5504033175) Ao root annulus (test 3.9 cm code = 5433310930) LVOT diameter (test code 2.20 cm = 5282084798) LVOT area (test code = 3.80 cm2 8188438318) LVIDD (test code = 3.80 cm 8612641701) Left Ventricular End 63.9 mL Diastolic Volume by Teichholz Method (test code = 8265148) IVS (test code = 1.18 cm 2179112996) Interventricular Septum 1.18 cm Diastolic Thickness by 2D (test code = 8098921) LVPWD (test code = 1.19 cm 5362857705) PW (test code = 1.19 cm 0.6-1.5 6961044060) EF(Teich) (test code = 54.00 % 3646532388) LVIDS (test code = 2.80 cm 4780317126) Left Ventricular End 29.4 mL Systolic Volume by Teichholz Method (test code = 6423424) FS (test code = 27 % 6846534059) EF - 2D (test code = 54.00 % 76716175) LA size (test code = 4.6 cm 7392389252) TR Peak Frank (test code = 233.1 cm/s 4105052164) Triscuspid Valve mmHg Regurgitation Peak Gradient (test code = 8502957307) LAV(MOD-sp4) (test code 90.80 mL = 7338731820) E wave decelartion time 0.24 s (test code = 3848587500) MV stenosis pressure 1/2 73.8 ms time (test code = 5367221886) MV Peak A Frank (test code 97.8 cm/s = 9547798675) MV Peak E Frank (test code 96.6 cm/s = 3622640617) E/A ratio (test code = ratio 9949750695) MV Prop V (test code = 21.00 cm/s 3315954585) MV E/e' septal (test 10.2 cm/s code = 9210985897) Tapse (test code = 1.88 cm 5862066878) LVOT stroke volume (test 72.40 cm3 code = 5093736048) LVOT peak frank (test code 85.7 cm/s = 3095860152) LVOT mn grad (test code mmHg = 2943917981) AV LVOT peak gradient mmHg (test code = 2676887626) LVOT peak VTI (test code 19.0 cm = 1853544871) LV V1 mean (test code = 61.60 cm/s 4798725256) Aortic valve mean 101.1 cm/s velocity (test code = 2052043604) Ao peak frank (test code = 137.0 cm/s 8780205274) Ao VTI (test code = 27.4 cm 9567382919) AV area by cont VTI 2.6 cm2 (test code = 5017161932) AV area peak frank (test 2.4 cm2 code = 6982619421) Ao max PG (test code = 7.50 mm[Hg] 4134549910) AV peak gradient (test mmHg code = 8634035795) AV valve area (test code 2.60 cm2 = 4392955502) AV mean gradient (test mmHg code = 9858866699) Radiology Study observation (narrative) (test code = 10372-4) ADD (test code = ADD) Addendum by Martinez Reyes MD on 01/10/2022 5:25 PM 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 Normal wall thickness. Normal wall motion. Normal systolic function with a visually estimated EF of 60 - 65%. Indeterminate diastolic function. ?Right?Ventricle: Normal systolic function. ?Tricuspid?Valve: Right ventricular systolic pressure = 20 mmHg + RA pressure. ?Aortic?Valve: No evidence of aortic stenosis. ?Left?Atrium: Left atrium is mildly dilated. ?IVC/SVC: IVC was not well visualized. Masha Brooks, MDLeft VentricleLeft ventricle size is normal. Normal wall thickness. Normal wall motion. Normal systolic function with a visually estimated EF of 60 - 65%. Indeterminate diastolic function.Right VentricleRight ventricle size is normal. Normal systolic function.Left AtriumLeft atrium is mildly dilated.Right AtriumRight atrium size is normal. There is a prominent Eustachian valve.IVC/SVCIVC was not well visualized.Mitral ValveMitral valve structure is normal. Mild posterior mitral annular calcification. Trace transvalvular regurgitation.Tricusp id ValveTricuspid valve structure is normal. Trace transvalvular regurgitation. Right ventricular systolic pressure = 20 mmHg + RA pressure. No stenosis.Aortic ValveNo transvalvular regurgitation. No evidence of aortic stenosis.Pulmonic ValveNot well visualized.Ascending AortaNormal sized annulus and sinus of Valsalva.PericardiumT he pericardium is normal. No pericardial effusion.Study DetailsStudy quality was adequate. A complete echocardiogram was performed using 2D, color flow Doppler and spectral Doppler. [facility] [id number] 20:54:35 Test Item Value Reference Interpretation Comments Range TROPONIN I (test 0.005 ng/mL See_Comment [Automated code = 2935392732) message] The system which generated this result [...] biotin. Lab Interpretation Normal (test code = 16837-0) [facility] [id number] 20:54:35 Test Item Value Reference Interpretation Comments Range TROPONIN I (test 0.005 ng/mL See_Comment [Automated code = 1458948646) message] The system which generated this result [...] biotin. Lab Interpretation Normal (test code = 55332-3) [facility] GLUCOSE (AUTOMATED)2022-01-10 13:45:15 Test Item Value Reference Range Interpretation Comments POCT GLU (test code = 3833996330) 101 mg/dL 70-110 Lab Interpretation (test code = Normal 29597-5) [facility] GLUCOSE (AUTOMATED)2022-01-10 13:45:15 Test Item Value Reference Range Interpretation Comments POCT GLU (test code = 5156159545) 101 mg/dL 70-110 Lab Interpretation (test code = Normal 77946-4) [facility] Msvwabntwmvv6660-12-67 10:30:41 Test Item Value Reference Range Interpretation Comments WBC (test code = See_Comment [Automated 6690-2) message] The sy stem which generated this result transmitted reference range : 4.20 - 10.70 10*3/?L. The reference range was not used to interpret this result as normal/abnormal . RBC (test code = See_Comment L [Automated 819-8) message] The sy stem which generated this result transmitted reference range : 4.26 - 5.52 10*6/?L. The reference range was not used to interpret this result as normal/abnormal . HGB (test code = 8.4 g/dL 12.2-16.4 L 718-7) HCT (test code = 26.8 % 38.4-49.3 L 4544-3) MCV (test code = 85.6 fL 81.7-95.6 787-2) MCH (test code = 26.8 pg 26.1-32.7 785-6) MCHC (test code = 31.3 g/dL 31.2-35.0 786-4) RDW-SD (test code = 50.9 fL 38.5-51.6 25461-5) RDW-CV (test code = 16.2 % 12.1-15.4 H 788-0) PLT (test code = See_Comment [Automated 777-3) message] The sy stem which generated this result transmitted reference range : 150 - 328 10*3/ ?L. The reference r jay was not used to interpret this result as normal/abnormal . MPV (test code = 8.8 fL 9.8-13.0 L 08224-7) NRBC/100 WBC (test See_Comment [Automat ed code = 1297584547) message] The system which generated this result transmitted reference range : 0.0 - 10.0 /100 WBCs. The refer ence range was not u sed to interpret th is result as normal/abnormal . NRBC x10^3 (test code See_Comment [Auto mated = 4389562376) message] The s ystem which generated this result transmitted reference range : 10*3/?L. The reference range was not used to interpret this result as normal/abnormal . GRAN MAT (NEUT) % 61.9 % (test code = 770-8) IMM GRAN % (test code 0.70 % = 4633408259) LYMPH % (test code = 24.0 % 736-9) MONO % (test code = 12.4 % 5905-5) EOS % (test code = 0.5 % 713-8) BASO % (test code = 0.5 % 706-2) GRAN MAT x10^3(ANC) 5.49 10*3/uL 1.99-6.95 (test code = 8876760466) IMM GRAN x10^3 (test 0.06 10*3/uL 0.00-0.06 code = 7465791617) LYMPH x10^3 (test code 2.12 10*3/uL 1.09-3.23 = 731-0) MONO x10^3 (test code 1.10 10*3/uL 0.36-1.02 H = 742-7) EOS x10^3 (test code = 0.04 10*3/uL 0.06-0.53 L 711-2) BASO x10^3 (test code 0.04 10*3/uL 0.01-0.09 = 704-7) Lab Interpretation Abnormal (test code = 67082-6) [facility] with Epxtgqcmaujg3266-91-88 10:30:41 Test Item Value Reference Range Interpretation Comments [...] as normal/abnormal . HGB (test code = 8.4 g/dL 12.2-16.4 L 718-7) HCT (test code = 26.8 % 38.4-49.3 L 4544-3) MCV (test code = 85.6 fL 81.7-95.6 787-2) MCH (test code = 26.8 pg 26.1-32.7 785-6) MCHC (test code = 31.3 g/dL 31.2-35.0 786-4) RDW-SD (test code = 50.9 fL 38.5-51.6 25604-9) RDW-CV (test code = 16.2 % 12.1-15.4 H 788-0) PLT (test code = See_Comment [Automated 777-3) message] The sy stem which generated this result transmitted reference range : 150 - 328 10*3/ ?L. The reference r jay was not used to interpret this result as normal/abnormal . MPV (test code = 8.8 fL 9.8-13.0 L 09605-1) NRBC/100 WBC (test See_Comment [Automat ed code = 3498952118) message] The system which generated this result transmitted reference range : 0.0 - 10.0 /100 WBCs. The refer ence range was not u sed to interpret th is result as normal/abnormal . NRBC x10^3 (test code See_Comment [Auto mated = 7430138854) message] The s ystem which generated this result transmitted reference range : 10*3/?L. The reference range was not used to interpret this result as normal/abnormal . GRAN MAT (NEUT) % 61.9 % (test code = 770-8) IMM GRAN % (test code 0.70 % = 6440180702) LYMPH % (test code = 24.0 % 736-9) MONO % (test code = 12.4 % 5905-5) EOS % (test code = 0.5 % 713-8) BASO % (test code = 0.5 % 706-2) GRAN MAT x10^3(ANC) 5.49 10*3/uL 1.99-6.95 (test code = 7446670089) IMM GRAN x10^3 (test 0.06 10*3/uL 0.00-0.06 code = 9225776311) LYMPH x10^3 (test code 2.12 10*3/uL 1.09-3.23 = 731-0) MONO x10^3 (test code 1.10 10*3/uL 0.36-1.02 H = 742-7) EOS x10^3 (test code = 0.04 10*3/uL 0.06-0.53 L 711-2) BASO x10^3 (test code 0.04 10*3/uL 0.01-0.09 = 704-7) Lab Interpretation Abnormal (test code = 90639-3) [facility] GLUCOSE (AUTOMATED)2022-01-10 06:10:26 Test Item Value Reference Range Interpretation Comments POCT GLU (test code = 5525972315) 272 mg/dL 70-110 H Lab Interpretation (test code = Abnormal 89898-0) [facility] GLUCOSE (AUTOMATED)2022-01-10 06:10:26 Test Item Value Reference Range Interpretation Comments POCT GLU (test code = 4780991182) 272 mg/dL 70-110 H Lab Interpretation (test code = Abnormal 05088-1) [facility] GLUCOSE (AUTOMATED)2022-01-10 03:04:30 Test Item Value Reference Range Interpretation Comments POCT GLU (test code = 9177401469) 448 mg/dL 70-110 H Lab Interpretation (test code = Abnormal 74904-2) [facility] GLUCOSE (AUTOMATED)2022-01-10 03:04:30 Test Item Value Reference Range Interpretation Comments POCT GLU (test code = 5083434853) 448 mg/dL 70-110 H Lab Interpretation (test code = Abnormal 02436-8) [facility] GLUCOSE (AUTOMATED)2022-01-09 17:40:50 Test Item Value Reference Range Interpretation Comments POCT GLU (test code = 1415946521) 148 mg/dL 70-110 H Lab Interpretation (test code = Abnormal 26298-9) [facility] GLUCOSE (AUTOMATED)2022-01-09 17:40:50 Test Item Value Reference Range Interpretation Comments POCT GLU (test code = 2914441064) 148 mg/dL 70-110 H Lab Interpretation (test code = Abnormal 24835-8) [facility] - This is a pre-surgical type and screen. ONCE [id number] 14:07:38 Test Item Value Reference Range Interpretation Comments ABO & RH (test code O Positive Performe d at [facility] = 20) Laboratory [facility] [address] [place], [place] [address]Toll Free: [phone] A No. [id number] IAT (test code = Negative Performed a t [facility] 1185) Laboratory [facility] [address] [place], [place] [address]Toll Free: [phone] A No. [id number] [facility] - This is a pre-surgical type and screen. ONCE [id number] 14:07:38 Test Item Value Reference Range Interpretation Comments ABO & RH (test code O Positive Performe d at [facility] = 20) Laboratory [facility] [address] [place], [place] [address]Toll Free: [phone] A No. [id number] IAT (test code = Negative Performed a t [facility] 1185) Laboratory [facility] [address] [place] [phone] Free: [phone] A No. [id number] [facility] GLUCOSE (AUTOMATED)2022-01-09 13:15:47 Test Item Value Reference Range Interpretation Comments POCT GLU (test code = 5295767466) 98 mg/dL 70-110 Lab Interpretation (test code = Normal 90820-7) [facility] GLUCOSE (AUTOMATED)2022-01-09 13:15:47 Test Item Value Reference Range Interpretation Comments POCT GLU (test code = 0385299211) 98 mg/dL 70-110 Lab Interpretation (test code = Normal 35525-9) [facility] SystemV[facility] B1 level, whole [id number] 14:11:00 Test Item Value Reference Range Interpretation Comments Vitamin B1, whole 149.3 nmol/L 66.5-200.0 blood (test code = 82673-9) ONEYDA (test code = Test(s) 132686-Hxy. B1, ONEYDA) Whole Bloodwas developed and its performance characteristics determinedby [facility]. It has not been cleared or approved by the Foodand Drug Administration.Performed at: [address] [id number] Director: Maria Elena Kilgore MD, Phone: [phone] [facility] level, whole [id number] 14:11:00 Test Item Value Reference Range Interpretation Comments Vitamin B1, whole 149.3 nmol/L 66.5-200 blood (test code = 10671-6) ONEYDA (test code = Test(s) 062033-Ufq. B1, ONEYDA) Whole Bloodwas developed and its performance characteristics determinedby [facility]. It has not been cleared or approved by the Foodand Drug Administration.Performed at: [address] [id number] Director: Maria Elena Kilgore MD, Phone: [phone] [facility] HospitalAnti-smooth muscle qngjawex9188-45-58 21:08:00 Test Item Value Reference Range Interpretation Comments F-actin See_Comment Negative 0 - 19 (smooth Weak positive 2 0 - muscle) Ab, 30 Moderate to IgG (test code strong positi ve >30 = 96187-4) Actin Antibodie s are found in 52-85% of patients with autoimmune hepa titis or chronic acti ve hepatitis and i n 22% of patients wit h primary biliary cirrhosis. [Automated mess age] The system [employer] generated this result transmit gretta reference range : 0 - 19 Units. The reference range was not used to interpret this result as normal/abnormal . ONEYDA (test code Performed at: - = ONEYDA) [address] [id number] Director: Maria Elena Kilgore MD, Phone: [phone] [facility] mitochondria [id number] 21:08:00 Test Item Value Reference Range Interpretation Comments Mitochondrial Ab <20.0 See_Comment Negative 0 .0 - (test code = 20.0 Equivocal 50141-5) 20.1 - 24.9 Positive >24.9Mitochondr ia l (M2) Antibodi es are found in 90-96% ofpatien ts with primary biliary cirrhosis. [Automated message] The system which generated this result transmitted reference range : 0.0 - 20.0 Unit s. The reference range was not used to interpr et this result as normal/abnormal . ONEYDA (test code = Performed at: ONEYDA) - [address] [id number] Director: Maria Elena Kilgore MD, Phone: [phone] [facility]-smooth muscle aqczfxqa6215-38-51 21:08:00 Test Item Value Reference Range Interpretation Comments F-actin See_Comment Negative 0 - 19 (smooth Weak positive 2 0 - muscle) Ab, 30 Moderate to IgG (test code strong positi ve >30 = 91662-0) Actin Antibodie s are found in 52-85% of patients with autoimmune hepa titis or chronic acti ve hepatitis and i n 22% of patients wit h primary biliary cirrhosis. [Automated mess age] The system [employer] generated this result transmit gretta reference range : 0 - 19 Units. The reference range was not used to interpret this result as normal/abnormal . ONEYDA (test code Performed at: - = ONEYDA) [address] [id number] Director: Maria Elena Kilgore MD, Phone: [phone] [facility] [id number] 21:08:00 Test Item Value Reference Range Interpretation Comments Mitochondrial Ab <20.0 See_Comment Negative 0 .0 - (test code = 20.0 Equivocal 99922-0) 20.1 - 24.9 Positive >24.9Mitochondr ia l (M2) Antibodi es are found in 90-96% ofpatien ts with primary biliary cirrhosis. [Automated message] The system which generated this result transmitted reference range : 0.0 - 20.0 Unit s. The reference range was not used to interpr et this result as normal/abnormal . ONEYDA (test code = Performed at: 01 ONEYDA) - Lab[address] [id number] Director: Maria Elena Kilgore MD, Phone: [phone] [facility] HospitalHemoglobinopathy fractionation [id number] 20:10:00 Test Item Value Reference Interpretation Comments Range Hemoglobin F (test 0.0 % 0.0-2.0 code = 39636-5) Hemoglobin A (test 98.0 % 96.4-98.8 code = 82996-7) Hemoglobin A2 (test 2.0 % 1.8-3.2 code = 4552-6) Hemoglobin S (test 0.0 % See_Comment [Automat ed message] The code = 56782-4) system which generated this result tra nsmitted reference range : 0.0. The reference r jay was not used to int erpret this result as normal/abnormal . Interpretation Comment Normal hemogl obin (test code = present; no hem oglobin 67047-7) variant or beta thalassemiaiden tified.No te: Alpha thala ssemia may not be dete cted by the Hgb FractionationCa scade panel. If alpha thalassemia is suspected, Lab or offersMusella-Mynor elieia DNA Analysis (# [id number]). ONEYDA (test code = Performed at: ONEYDA) - [facility] [facility] [address], [place], [place] [id number] Director: DICK Monreal MD, Phone: [phone] [facility] HospitalHemoglobinopathy fractionation [id number] 20:10:00 Test Item Value Reference Interpretation Comments Range Hemoglobin F (test 0.0 % 0-2 code = 53741-9) Hemoglobin A (test 98.0 % 96.4-98.8 code = 75526-0) Hemoglobin A2 (test 2.0 % 1.8-3.2 code = 4552-6) Hemoglobin S (test 0.0 % See_Comment [Automat ed message] The code = 08094-7) system which generated this result tra nsmitted reference range : 0.0. The reference r jay was not used to int erpret this result as normal/abnormal . Interpretation Comment Normal hemogl obin (test code = present; no hem oglobin 94319-4) variant or beta thalassemiaiden tified.No te: Alpha thala ssemia may not be dete cted by the Hgb FractionationCa scade panel. If alpha thalassemia is suspected, [facility] offersAlpha-Mynor lassemia DNA Analysis (# [id number]). ONEYDA (test code = Performed at: ONEYDA) [address] [place] [address] [id number] Director: DICK Monreal MD, Phone: [phone] [facility] HospitalAlpha-1 antitrypsin [id number] 20:11:00 Test Item Value Reference Range Interpretation Comments Alpha-1 antitrypsin 159 mg/dL 101-187 (test code = 1825-9) ONEYDA (test code = ONEYDA) Performed at: [address] [place] [address] [id number] Director: DICK Monreal MD, Phone: [phone] [facility] HospitalAlpha-1 antitrypsin [id number] 20:11:00 Test Item Value Reference Range Interpretation Comments Alpha-1 antitrypsin 159 mg/dL 101-187 (test code = 1825-9) ONEYDA (test code = ONEYDA) Performed at: [address] [place] [address] [id number] Director: DICK Monreal MD, Phone: [phone] [facility]2022-06-17 17:09:00 Test Item Value Reference Range Interpretation Comments ERIK direct (test code Negative Negative = 8061-4) ONEYDA (test code = ONEYDA) Performed at: [address] [place] [address] [id number] Director: Rian Auguste MD, Phone: [phone] [facility] HospitalCortisol level, [id number] 17:09:00 Test Item Value Reference Range Interpretation Comments Cortisol, PM (test code = 12.5 ug/dL 2.3-11.9 H 9812-9) ONEYDA (test code = ONEYDA) Performed at: [address] [place] [address] [id number] Director: Rian Auguste MD, Phone: [phone] Lab Interpretation (test Abnormal code = 69393-6) [facility] HospitalHsavmtinFWF3181-76-50 17:09:00 Test Item Value Reference Range Interpretation Comments ERIK direct (test code Negative Negative = 8061-4) ONEYDA (test code = ONEYDA) Performed at: [address] [place] [address] [id number] Director: Rian Auguste MD, Phone: [phone] [facility] HospitalCortisol [facility], [id number] 17:09:00 Test Item Value Reference Range Interpretation Comments Cortisol, PM (test code = 12.5 ug/dL 2.3-11.9 H 9812-9) ONEYDA (test code = ONEYDA) Performed at: [address] [place] [address] [id number] Director: Rian Auguste MD, Phone: [phone] Lab Interpretation (test Abnormal code = 43584-7) [facility] HospitalVitamin B12 [id number] 13:08:00 Test Item Value Reference Range Interpretation Comments Vitamin B12 (test 315 pg/mL 232-1245 code = 2132-9) ONEYDA (test code = ONEYDA) Performed at: [address] [place] [address] [id number] Director: Rian Auguste MD, Phone: [phone] [facility] HospitalFerritin [id number] 13:08:00 Test Item Value Reference Range Interpretation Comments Ferritin level (test 86 ng/mL 30-400 code = 2276-4) ONEYDA (test code = ONEYDA) Performed at: [address] [place] [address] [id number] Director: Rian Auguste MD, Phone: [phone] [facility]2022-06-17 13:08:00 Test Item Value Reference Range Interpretation Comments Folate (test 12.2 ng/mL See_Comment A serum folate code = 2284-8) concentration of less than 3.1 ng/mL isconsidered to represent clini doyle deficiency. [Automated mess age] The system [employer] generated this result transmitted ref erence range: >=3.0. T he reference range was not used to int erpret this result as normal/abnormal . ONEYDA (test code Performed at: - = ONEYDA) [address] [id number] Director: Rian Auguste MD, Phone: [phone] [facility]2022-06-17 13:08:00 Test Item Value Reference Range Interpretation Comments GGT (test code See_Comment [Automated m essage] = 2954-2) The system [employer] generated this result transmit gretta reference range : 0 - 65 IU/L. The reference range was not used to interpret this result as normal/abnormal . ONEYDA (test code Performed at: - = ONEYDA) [address] [id number] Director: Rian Auguste MD, Phone: [phone] [facility]2022-06-17 13:08:00 Test Item Value Reference Range Interpretation Comments Potassium (test code = 5.2 mmol/L 3.5-5.2 2823-3) ONEYDA (test code = ONEYDA) Performed at: - [address] [id number] Director: Rian Auguste MD, Phone: [phone] [facility] with platelet and vzobpxsxipos6413-84-40 13:08:00 Test Item Value Reference Range Interpretation Comments WBC (test code = See_Comment [Automated 8214-2) message] The system which generated this result transmitted reference range : 3.4 - 10.8 x10E3/uL. The reference range was not used to interpret this result as normal/abnormal . RBC (test code = See_Comment L [Automated 579-8) message] The system which generated this result transmitted reference range : 4.14 - 5.80 x10E6/uL. The reference range was not used to interpret this result as normal/abnormal . HGB (test code = 9.4 g/dL 13.0-17.7 L 718-7) HCT (test code = 30.7 % 37.5-51.0 L 4544-3) MCV (test code = 84 fL 79-97 787-2) MCH (test code = 25.8 pg 26.6-33.0 L 785-6) MCHC (test code = 30.6 [...] 1 % Not Estab. (test code = 93482-9) Immature See_Comment [Automated granulocytes, message] The absolute (test code = system which 09939-8) generated this result transmitted reference range : 0.0 - 0.1 x10E3/uL. The reference range was not used to interpret this result as normal/abnormal . ONEYDA (test code = ONEYDA) Performed at: [address] [place] [address] [id number] Director: Rian Auguste MD, Phone: [phone] Lab Interpretation Abnormal (test code = 00331-0) [facility] surface [id number] 13:08:00 Test Item Value Reference Range Interpretation Comments Hepatitis B surface Ag Negative Negative (test code = 5196-1) ONEYDA (test code = ONEYDA) Performed at: [address] [place] [address] [id number] Director: Rian Auguste MD, Phone: [phone] [facility] [place] surface [id number] 13:08:00 Test Item Value Reference Range Interpretation Comments Hepatitis B Non Reactive Non Reactive: surface Ab (test Inconsisten t with code = 88521-7) immunity, le ss than 10 mIU/mL React kinza: Consistent with immunity, great er than 9.9 mIU/mL ONEYDA (test code = Performed at: ONEYDA) [facility] [id number] Director: Rian Auguste MD, Phone: [phone] [facility] A antibody [id number] 13:08:00 Test Item Value Reference Range Interpretation Comments Hepatitis A total Ab Positive Negative A (test code = 20374-1) ONEYDA (test code = ONEYDA) Performed at: [address] [place] [address] [id number] Director: Rian Auguste MD, Phone: [phone] Lab Interpretation (test Abnormal code = 81319-4) [facility] HospitalReticul[facility] count, oelzygues9963-96-16 13:08:00 Test Item Value Reference Range Interpretation Comments Retic count, manual 1.5 % 0.6-2.6 (test code = 87366-8) ONEYDA (test code = ONEYDA) Performed at: [address] [place] [address] [id number] Director: Rian Auguste MD, Phone: [phone] [facility] HospitalTotal iron binding [id number] 13:08:00 Test Item Value Reference Range Interpretation Comments Iron binding capacity 295 ug/dL 250-450 (test code = 2500-7) Unsaturated iron binding 253 ug/dL 111-343 capacity (test code = 2501-5) Iron level (test code = 42 ug/dL 38-169 2498-4) Iron saturation (test 14 % 15-55 L code = 2502-3) ONEYDA (test code = ONEYDA) Performed at: [address] [place] [address] [id number] Director: Rian Auguste MD, Phone: [phone] Lab Interpretation (test Abnormal code = 81876-1) [facility]HIV 1/2 antigen/antibody, fourth generation w/eqi9092-01-25 13:08:00 Test Item Value Reference Range Interpretation Comments HIV AG/AB 4th Non Reactive Non Reactive HIV gen (test code NegativeHIV-1 /HIV-2 = 55371-3) antibodies and HIV-1 p24 antigen wer e NOT detected.There is no laboratory evid ence of HIV infectio n. ONEYDA (test code Performed at: - = ONEYDA) [address] [id number] Director: Rian Auguste MD, Phone: [phone] [facility] HospitalVitamin B12 ktpvf7834-19-18 13:08:00 Test Item Value Reference Range Interpretation Comments Vitamin B12 (test 315 pg/mL 232-1245 code = 2132-9) ONEYDA (test code = ONEYDA) Performed at: [address] [place] [address] [id number] Director: Rian Auguste MD, Phone: [phone] [facility] HospitalFerritin [id number] 13:08:00 Test Item Value Reference Range Interpretation Comments Ferritin level (test 86 ng/mL 30-400 code = 2276-4) ONEYDA (test code = ONEYDA) Performed at: - [address] [id number] Director: Rian Auguste MD, Phone: [phone] [facility]2022-06-17 13:08:00 Test Item Value Reference Range Interpretation Comments Folate (test 12.2 ng/mL See_Comment A serum folate code = 2284-8) concentration of less than 3.1 ng/mL isconsidered to represent clini doyle deficiency. [Automated mess age] The system [employer] generated this result transmitted ref erence range: >=3.0. T he reference range was not used to int erpret this result as normal/abnormal . ONEYDA (test code Performed at: - = ONEYDA) [address] [id number] Director: Rian Auguste MD, Phone: [phone] [facility]2022-06-17 13:08:00 Test Item Value Reference Range Interpretation Comments GGT (test code See_Comment [Automated m essage] = 2324-2) The system [employer] generated this result transmit gretta reference range : 0 - 65 IU/L. The reference range was not used to interpret this result as normal/abnormal . ONEYDA (test code Performed at: - = ONEYDA) [address] [id number] Director: Rian Auguste MD, Phone: [phone] [facility]2022-06-17 13:08:00 Test Item Value Reference Range Interpretation Comments Potassium (test code = 5.2 mmol/L 3.5-5.2 2823-3) ONEYDA (test code = ONEYDA) Performed at: - [address] [id number] Director: Rian Auguste MD, Phone: [phone] [facility] with platelet and ahscdqwzohzt0700-66-20 13:08:00 Test Item Value Reference Range Interpretation Comments WBC (test code = See_Comment [Automated 6607-2) message] The system which generated this result [...] 1 % Not Estab. (test code = 97894-7) Immature See_Comment [Automated granulocytes, message] The absolute (test code = system which 77564-8) generated this result transmitted reference range : 0.0 - 0.1 x10E3/uL. The reference range was not used to interpret this result as normal/abnormal . ONEYDA (test code = ONEYDA) Performed at: [address] [place] [address] [id number] Director: Rian Auguste MD, Phone: [phone] Lab Interpretation Abnormal (test code = 63354-3) [facility] surface [id number] 13:08:00 Test Item Value Reference Range Interpretation Comments Hepatitis B surface Ag Negative Negative (test code = 5196-1) ONEYDA (test code = ONEYDA) Performed at: [address] [place] [address] [id number] Director: Rian Auguste MD, Phone: [phone] [facility] [place] B surface [id number] 13:08:00 Test Item Value Reference Range Interpretation Comments Hepatitis B Non Reactive Non Reactive: surface Ab (test Inconsisten t with code = 15251-9) immunity, le ss than 10 mIU/mL React kinza: Consistent with immunity, great er than 9.9 mIU/mL ONEYDA (test code = Performed at: ONEYDA) [facility] [id number] Director: Rian Auguste MD, Phone: [phone] [facility] [place] A antibody [id number] 13:08:00 Test Item Value Reference Range Interpretation Comments Hepatitis A total Ab Positive Negative A (test code = 78222-6) ONEYDA (test code = ONEYDA) Performed at: [address] [place] [address] [id number] Director: Rian Auguste MD, Phone: [phone] Lab Interpretation (test Abnormal code = 73884-1) [facility] HospitalReticulocyte count, eouevzfuo6019-65-42 13:08:00 Test Item Value Reference Range Interpretation Comments Retic count, manual 1.5 % 0.6-2.6 (test code = 69552-5) ONEYDA (test code = ONEYDA) Performed at: [address] [place] [address] [id number] Director: Rian Auguste MD, Phone: [phone] [facility] HospitalTotal iron binding htzncaqm8942-98-88 13:08:00 Test Item Value Reference Range Interpretation Comments Iron binding capacity 295 ug/dL 250-450 (test code = 2500-7) Unsaturated iron binding 253 ug/dL 111-343 capacity (test code = 2501-5) Iron level (test code = 42 ug/dL 38-169 2498-4) Iron saturation (test 14 % 15-55 L code = 2502-3) ONEYDA (test code = ONEYDA) Performed at: [address] [id number] Director: Rian Auguste MD, Phone: [phone] Lab Interpretation (test Abnormal code = 17251-9) [facility] HospitalHIV 1/2 antigen/antibody, fourth generation w/[id number] 13:08:00 Test Item Value Reference Range Interpretation Comments HIV AG/AB 4th Non Reactive Non Reactive HIV gen (test code NegativeHIV-1 /HIV-2 = 79208-8) antibodies and HIV-1 p24 antigen wer e NOT detected.There is no laboratory evid ence of HIV infectio n. ONEYDA (test code Performed at: - = ONEYDA) [address] [id number] Director: Rian Auguste MD, Phone: [phone] [facility] HospitalComprehensive metabolic staip2672-10-58 15:35:00 Test Item Value Reference Range Interpretation [...] (test code = 8.3 mg/dL 8.6-10.2 L 78022-4) Protein (test code = 5.5 g/dL 6.0-8.5 L 2885-2) Albumin, S (test code 3.4 g/dL 3.7-4.7 L = 1751-7) Globulin, total (test 2.1 g/dL 1.5-4.5 code = 18148-9) Albumin/globulin 1.2-2.2 ratio (test code = 1759-0) Total bilirubin (test 0.0-1.2 code = 1975-2) Alkaline phosphatase See_Comment [Autom ated (test code = 6768-6) message ] The system which generated this result transmitted reference range : 44 - 121 IU/L. The reference range was not used to interpr et this result as normal/abnormal . AST (test code = See_Comment H [Automated 192-8) message] The system which generated this result transmitted reference range : 0 - 40 IU/L. Th e reference range was not used to interpret this result as normal/abnormal . ALT (test code = See_Comment [Automated 1741-07) message] The system which generated this result transmitted reference range : 0 - 44 IU/L. Th e reference range was not used to interpret this result as normal/abnormal . ONEYDA (test code = ONEYDA) Performed at: 01 - [facility] [address] [id number] Director: Rian Auguste MD, Phone: [phone] Lab Interpretation Abnormal (test code = 05404-0) [facility] HospitalLipid [id number] 15:35:00 Test Item Value Reference Range Interpretation Comments Cholesterol (test 132 mg/dL 100-199 code = 2093-3) Triglycerides (test 65 mg/dL 0-149 code = 2571-8) HDL cholesterol 48 mg/dL See_Comment [Automated (test code = 2085-9) message ] The system which generated this result transmitted reference range : >=39. The reference range was not used to interpret this result as normal/abnormal . VLDL cholesterol doyle 14 mg/dL 5-40 (test code = 97412-6) LDL Chol Calc ([facility]) 70 mg/dL 0-99 (test code = 88438-3) Non-HDL cholesterol 84 mg/dL 0-129 (test code = 55442-6) ONEYDA (test code = Performed at: ONEYDA) - [facility] [id number] Director: Rian Auguste MD, Phone: [phone] [facility] HospitalHemoglobin [id number] 15:35:00 Test Item Value Reference Range Interpretation Comments Hemoglobin A1C (test 8.6 % 4.8-5.6 H Predia betes: code = 4548-4) 5.7 - 6.4 Diabetes: >6.4 Glycemic control for adults with diabetes: <7.0 ONEYDA (test code = ONEYDA) Performed at: - [facility] [id number] Director: Rian Auguste MD, Phone: [phone] Lab Interpretation Abnormal (test code = 70207-5) [facility] HospitalVitamin D 25 hydroxy [id number] 15:35:00 Test Item Value Reference Range Interpretation Comments Vitamin D, 23.2 ng/mL 30.0-100.0 L Vitamin D 25-hydroxy (test deficiency has been code = 06512-3) defined by t [place] ofMedicine and an Endocrine Socie ty practice guidel ine as alevel of se rum 25-OH vitamin D less than 20 ng /mL (1,2).The Endoc rine Society went on to further define vitamin Dinsufficiency as a level between 2 1 and 29 ng/mL (2 ).1. IOM ([place] of Medicine). 2010 . Dietary referen ce intakes for doyle carvajal and Yi Clarket on [place]: The [employer] .2. Mendez MF, Meliza sterling NC, Urbano yan LI, et al. Evaluation, treatment, and prevention of vitamin D deficiency: an Endocrine Socie ty clinical practi ce guideline. JCEM . 2010; 96(7):1911-30. ONEYDA (test code = Performed at: [facility]) - [address] [id number] Director: Rian Auguste MD, Phone: [phone] Lab Interpretation Abnormal (test code = 12618-1) [facility] [id number] 15:35:00 Test Item Value Reference Range Interpretation Comments Creatinine, urine 37.1 mg/dL Not Estab. (mg/dL) (test code = 2161-8) Albumin, urine (test 154.0 ug/mL Not Estab. code = 11852-5) Microalbumin/creatini See_Comment H Minda l: 0 - 29 ne ratio (test code = Modera tely 9318-7) increased: 30 - 300 Severely increased: >300 [Automated message] The system which generated this result transmitted reference range : 0 - 29 mg/g creat. The reference range was not used to interpret this result as normal/abnormal . ONEYDA (test code = ONEYDA) Performed at: [address] [place] [address] [id number] Director: Rian Auguste MD, Phone: [phone] Lab Interpretation Abnormal (test code = 31411-7) [facility] reflex to [id number] 15:35:00 Test Item Value Reference Range Interpretation Comments TSH (test code = See_Comment H Results con firmed 62461-9) ondilution. [Automated message] The system which generated this result transmitted reference range : 0.450 - 4.500 uIU/mL. The reference range was not used to interpret this result as normal/abnormal . ONEYDA (test code = ONEYDA) Performed at: 01 - [facility] [address] [id number] Director: Rian Auguste MD, Phone: [phone] Lab Interpretation Abnormal (test code = 79207-0) [facility]ERT [facility]2021-07-05 15:35:00 Test Item Value Reference Range Interpretation Comments T4, free, direct dialysis 0.27 ng/dL 0.82-1.77 L (test code = 3024-7) ONEYDA (test code = ONEYDA) Performed at: 01 - [facility] [address] [id number] Director: Rian Auguste MD, Phone: [phone] Lab Interpretation (test Abnormal code = 10696-8) [facility] [id number] 15:35:00 Test Item Value Reference Range Interpretation Comments Glucose (test code = 153 mg/dL 65-99 H 2345-7) BUN (test code = 29 mg/dL 8-27 H 3094-0) Creatinine (test code 1.45 mg/dL 0.76-1.27 H = 2160-0) eGFR (test code = 52 mL/min/1.73 See_Comment L [Automa grteta 8257) message] The system which generated this [...] (test code = 8.3 mg/dL 8.6-10.2 L 77793-2) Protein (test code = 5.5 g/dL 6-8.5 L 2885-2) Albumin, S (test code 3.4 g/dL 3.7-4.7 L = 1751-7) Globulin, total (test 2.1 g/dL 1.5-4.5 code = 03521-4) Albumin/globulin 1.2-2.2 ratio (test code = 1759-0) [...] ONEYDA (test code = ONEYDA) Performed at: [address] [id number] Director: Rian Auguste MD, Phone: [phone] Lab Interpretation Abnormal (test code = 62303-0) [facility] HospitalLipid [id number] 15:35:00 Test Item Value Reference Range Interpretation Comments Cholesterol (test 132 mg/dL 100-199 code = 2093-3) Triglycerides (test 65 mg/dL 0-149 code = 2571-8) HDL cholesterol 48 mg/dL See_Comment [Automated (test code = 2085-9) message ] The system which generated this result transmitted reference range : >=39. The reference range was not used to interpret this result as normal/abnormal . VLDL cholesterol doyle 14 mg/dL 5-40 (test code = 12273-2) LDL Chol Calc ([facility]) 70 mg/dL 0-99 (test code = 03814-8) Non-HDL cholesterol 84 mg/dL 0-129 (test code = 84644-4) ONEYDA (test code = Performed at: ONEYDA) - [facility] [id number] Director: Rian Auguste MD, Phone: [phone] [facility] HospitalHemoglobin [id number] 15:35:00 Test Item Value Reference Range Interpretation Comments Hemoglobin A1C (test 8.6 % 4.8-5.6 H Predia betes: code = 4548-4) 5.7 - 6.4 Diabetes: >6.4 Glycemic control for adults with diabetes: <7.0 ONEYDA (test code = ONEYDA) Performed at: 01 - [facility] [address] [id number] Director: Rian Auguste MD, Phone: [phone] Lab Interpretation Abnormal (test code = 82851-0) [facility] HospitalVitamin D 25 hydroxy [id number] 15:35:00 Test Item Value Reference Range Interpretation Comments Vitamin D, 23.2 ng/mL 30-100 L Vitamin D 25-hydroxy (test deficiency has been code = 10962-0) defined by t Am[place] ofPrem[facility] Northcine and an Endocrine Socie ty practice guidel ine as alevel of se rum 25-OH vitamin D less than 20 ng /mL (1,2).The Endoc rine Society went on to further define vitamin Dinsufficiency as a level between 2 1 and 29 ng/mL (2 ).1. IOM ([place] of Medicine). 2010 . Dietary referen ce intakes for doyle cium and Yi Clarket on [place]: [employer] .2. Mendez MF, Meliza sterling [place], Urbano yan LI, et al. Evaluation, treatment, and prevention of vitamin D deficiency: an Endocrine Socie ty clinical practi ce guideline. JCEM . 2010; 96(7):1911-30. ONEYDA (test code = Performed at: ONEYDA) - [facility] [address] [id number] Director: Rian Auguste MD, Phone: [phone] Lab Interpretation Abnormal (test code = 19011-4) [facility] HospitalMicro[facility] / creatinine urine [id number] 15:35:00 Test Item Value Reference Range Interpretation Comments Creatinine, urine 37.1 mg/dL Not Estab. (mg/dL) (test code = 2161-8) Albumin, urine (test 154.0 ug/mL Not Estab. code = 47882-4) Microalbumin/creatini See_Comment H Minda l: 0 - 29 ne ratio (test code = Modera tely 9318-7) increased: 30 - 300 Severely increased: >300 [Automated message] The system which generated this result transmitted reference range : 0 - 29 mg/g creat. The reference range was not used to interpret this result as normal/abnormal . ONEYDA (test code = ONEYDA) Performed at: [address] [place] [address] [id number] Director: Rian Auguste MD, Phone: [phone] Lab Interpretation Abnormal (test code = 96808-7) [facility] reflex to [id number] 15:35:00 Test Item Value Reference Range Interpretation Comments TSH (test code = See_Comment H Results con firmed 37229-5) ondilution. [Automated message] The system which generated this result transmitted reference range : 0.450 - 4.500 uIU/mL. The reference range was not used to interpret this result as normal/abnormal . ONEYDA (test code = ONEYDA) Performed at: [address] [place] [address] [id number] Director: Rian Auguste MD, Phone: [phone] Lab Interpretation Abnormal (test code = 63738-8) [place] [address] FREE (EVERT HIST)2021-07-05 15:35:00 Test Item Value Reference Range Interpretation Comments T4, free, direct dialysis 0.27 ng/dL 0.82-1.77 L (test code = 3024-7) ONEYDA (test code = ONEYDA) Performed at: [address] [place] [address] [id number] Director: Rian Auguste MD, Phone: [phone] Lab Interpretation (test Abnormal code = 15531-6) [facility]
--- NOTE | 2022-02-11 00:32 | EDPHYS ---
Physician Documentation [facility] Name: Dangelo Montana Age: 71 yrs Sex: Male : 1950 Arrival Date: 02/10/2022 Time: 21:45 Bed 15 Private MD: ED Physician Denisa Aleman HPI: 02/10 21:48 This 71 yrs old Male presents to ER via Unassigned with complaints of Leg Pain.sd2 21:48 71-year-old male presents via EMS with chief complaint of left lower extremity pain and sd2 swelling. The patient had a left hip replacement a few weeks ago at [facility] with Dr. Ayala. He reports he has had arterial ultrasounds and x-rays performed of the legs that have been negative. He also reports he believes a venous ultrasound was performed to rule out DVT that was also negative but those reports were not sent with him today. The patient is scheduled to follow-up with Dr. Ayala at his 1 month postoperative maury which is coming up. He reports however that this leg edema and pain has been present since before the surgery. He reports that he was relocated to the area by his daughter approximately 3 to 4 months ago and at that time, he had been having procedures performed for varicose veins on his right lower extremity which also looked the same as his current left lower extremity before they perform those procedures. He was supposed to then have his left lower extremity venous procedures performed but relocated prior to having that done. He reports that this has nothing to do with his surgery and that this has been an ongoing problem. [facility] prior to arrival and reports his pain is currently under control. He has no other current complaints and denies any chest pain or shortness of breath.. - Immunization history:: Adult Immunizations up to date. - Social history:: Smoking status: unknown. ROS: 21:48 Constitutional: Negative for fever, chills, and weight loss, Eyes: Negative for injury, sd2 pain, redness, and discharge, Cardiovascular: Negative for chest pain, palpitations, and edema, Respiratory: Negative for shortness of breath, cough, wheezing. Abdomen/GI: Negative for abdominal pain, nausea, vomiting, diarrhea. 21:48 Skin: Negative for injury, rash, and discoloration, Neuro: Negative for headache, numbness and tingling. 21:48 MS/extremity: Positive for pain, swelling, Negative for injury or acute deformity. Exam: 21:48 Constitutional: This is a well developed, well nourished patient who is awake, alert, sd2 and in no acute distress. Head/Face: Normocephalic, atraumatic. Eyes: EOMI, normal conjunctiva bilaterally Chest/axilla: Normal chest wall appearance and motion. Nontender with no deformity. Cardiovascular: Regular rate and rhythm with a normal S1 and S2. No gallops, murmurs, or rubs. 2+ distal pulses. Respiratory: Lungs have equal breath sounds bilaterally, clear to auscultation and percussion. No rales, rhonchi or wheezes noted. No increased work of breathing, no retractions or nasal flaring. Abdomen/GI: Soft, non-tender, with normal bowel sounds. No guarding or rebound. No evidence of tenderness throughout. Skin: Warm, dry with normal turgor. Normal color with no rashes, no lesions, and no evidence of cellulitis. MS/ Extremity: Pulses equal, no cyanosis. Neurovascular intact. Full, normal range of motion. Ambulatory without difficulty with assistance. Patient normally uses a walker at home. LLE edema present with associated TTP of the lower leg. FROM intact of all joints and 2+ distal pulses present. Psych: Awake, alert, with orientation to person, place and time. Behavior, mood, and affect are within normal limits. Vital Signs: 21:30 BP 126 / 75; Pulse 57; Resp 18; Temp 98.1; Pulse Ox 96% on R/A; Pain 8/10; pf1 22:30 BP 101 / 67; Pulse 62; Resp 16; Pulse Ox 95% on R/A; Pain 8/10; pf1 23:30 BP 121 / 63; Pulse 57; Resp 16; Pulse Ox 96% on R/A; pf1 02/11 00:24 BP 109 / 69; Pulse 59; Resp 16; Pulse Ox 95% on R/A; pf1 02:00 BP 122 / 78; Pulse 57; Resp 16; Temp 98.7; Pulse Ox 96% on R/A; pf1 02:59 BP 116 / 70; Pulse 62; Resp 16; Temp 98; Pulse Ox 97% on R/A; Pain 5/10; pf1 MDM: 02/10 21:48 Patient medically screened. sd2 21:48 Differential diagnosis: DVT, doubt fracture, doubt arterial injury, contusion, varicose sd2 veins, lymphedema among others. Data reviewed: vital signs, nurses notes, EMS record. 23:57 Data reviewed: radiologic studies, ultrasound. Counseling: I had a detailed discussion sd2 with the patient and/or guardian regarding: the historical points, exam findings, and any diagnostic results supporting the discharge/admit diagnosis, radiology results, the need for outpatient follow up, to return to the emergency department if symptoms worsen or persist or if there are any questions or concerns that arise at home. ED course: Imaging reviewed. No evidence of DVT. This has been ongoing issue per patient with no significant change and patient will likely need to follow up with a vein or vascular specialist. The patient did have some redness and warmth to his left lower leg but he advised that this is also unchanged for months and when offered antibiotics, declined as this has been an ongoing issue. Advised follow up with Orthopedics and PCP for further specialist referrals. Pain is well controlled and patient is comfortable with plan for discharge and outpatient follow up. Verbalizes understanding of strict return precautions. . 02/10 21:48 Order name: US Extremity Venous Unilateral Ltd sd2 Administered Medications: No medications were administered Disposition Summary: 02/11/22 00:32 Discharge Ordered Location: Home sd2 Problem: an ongoing problem sd2 Symptoms: are unchanged sd2 Condition: Stable sd2 Diagnosis - Left lower extremity edema sd2 - Left lower extremity pain sd2 Followup: sd2 - With: Private Physician - When: 2 - 3 days - Reason: Recheck today's complaints, Continuance of care, Re-evaluation by your physician Discharge Instructions: - Discharge Summary Sheet sd2 - Edema sd2 - Peripheral Edema sd2 Forms: - Medication Reconciliation Form sd2 - Thank You Letter sd2 - Antibiotic Education sd2 - Prescription Opioid Use sd2 Signatures: Dispatcher [employer] EDMS Denisa Aleman MD MD sd2 Mary fuentes RN RN pf1 Corrections: (The following items were deleted from the chart) 02/11 00:33 02/10 23:57 ED course: Imaging reviewed. No evidence of DVT. This has been ongoing sd2 issue per patient with no significant change and patient will likely need to follow up with a vein or vascular specialist. Advised follow up with Orthopedics and PCP for further specialist referrals. Pain is well controlled and patient is comfortable with plan for discharge and outpatient follow up. Verbalizes understanding of strict return precautions. . sd2
--- NOTE | 2022-02-11 00:32 | ER ---
Nurse's Notes [facility] Name: Dangelo Montana Age: 71 yrs Sex: Male : 1950 Arrival Date: 02/10/2022 Time: 21:45 Bed 15 Private MD: Diagnosis: Left lower extremity edema;Left lower extremity pain Presentation: 02/10 21:20 Chief complaint: Patient states: Patient C/O Left hip pain and LLE pain of 8 that pf1 radiates to left dorsum foot,onset several months. 21:20 Coronavirus screen: Client denies travel out of the [place] in the last 14 days. At this pf1 time, the client does not indicate any symptoms associated with coronavirus-19. Ebola Screen: Patient negative for fever greater than or equal to 101.5 degrees Fahrenheit, and additional compatible Ebola Virus Disease symptoms. 21:20 Method Of Arrival: EMS: [facility] pf1 21:30 Acuity: MEDARDO 3 pf1 21:30 Initial Sepsis Screen: Does the patient meet any 2 criteria? No. Patient's initial pf1 sepsis screen is negative. Does the patient have a suspected source of infection? No. Patient's initial sepsis screen is negative. Risk Assessment: Do you want to hurt yourself or someone else? Patient reports no desire to harm self or others. Note Patient C/O symptoms onset for several months. Onset of symptoms Onset of symptoms. - Immunization history:: Adult Immunizations up to date. - Social history:: Smoking status: unknown. Screenin:30 [facility] ED Fall Risk Assessment (Adult) History of falling in the last 3 months, pf1 including since admission No falls in past 3 months (0 pts) Confusion or Disorientation No (0 pts) Intoxicated or Sedated No (0 pts) Impaired Gait No (0 pts) Mobility Assist Device Used No (0 pt) Altered Elimination No (0 pt) Score/Fall Risk Level 0 - 2 = Low Risk Oriented to surroundings, Maintained a safe environment, Educated pt \T\ family on fall prevention, incl call for assistance when getting out of bed, Assessed \T\ reinforced patient's understanding of fall precautions, Provided non-skid footwear, Hourly rounding (assess needs \T\ fall precautionary measures) done, Used ambulatory aids as needed (educated on \T\ assisted with), Used gait belt as appropriate. 21:30 Abuse screen: Denies threats or abuse. Nutritional screening: No deficits noted. pf1 Tuberculosis screening: No symptoms or risk factors identified. Assessment: 21:30 General: Appears in no apparent distress. distressed, well groomed, well developed, 1 Behavior is calm, cooperative, appropriate for age, quiet. 21:30 Pain: Complains of pain in Patient C/O left hip and left lower extremity pain of 8 that pf1 radiates to left foot,onset several months. Patient has redness with 4+ pitting edema to LLE. Neuro: No deficits noted. Level of Consciousness is awake, alert, obeys commands, Oriented to person, place, time, situation. Cardiovascular: No deficits noted. Capillary refill < 3 seconds. Respiratory: No deficits noted. Reports Airway is patent Trachea midline Respiratory effort is even, unlabored, Respiratory pattern is regular, symmetrical. GI: No deficits noted. No signs and/or symptoms were reported involving the gastrointestinal system. Abdomen is flat, non-distended, Bowel sounds present X 4 quads. : No deficits noted. No signs and/or symptoms were reported regarding the genitourinary system. EENT: No deficits noted. No signs and/or symptoms were reported regarding the EENT system. Derm: Skin is pink, warm \T\ dry. Patient has redness to LLE. 22:34 General: US tech at BS. pf1 02/11 00:00 Reassessment: Patient appears in no apparent distress at this time. No changes from [facility] previously documented assessment. Patient and/or family updated on plan of care and expected duration. Pain level reassessed. Patient sleeping at this time. Lights dimmed, call light at BS. Continue monitoring patient. Patient pending US results. . 00:50 General: Notified [facility], spoke with Dto to arrange for transport back to [address] . 01:10 General: [facility] ETA 1.5 hours per Dot from [facility]. pf1 02:05 Reassessment: Patient appears in no apparent distress at this time. No changes from [facility] previously documented assessment. Patient and/or family updated on plan of care and expected duration. Pain level reassessed. Patient is alert, oriented x 3, equal unlabored respirations, skin warm/dry/pink. Patient awaiting for [facility] to arrive for discharge. 03:00 General: Patient report given to [facility]. Patient being transported back to [address] at this time. . Vital Signs: 02/10 21:30 BP 126 / 75; Pulse 57; Resp 18; Temp 98.1; Pulse Ox 96% on R/A; Pain 8/10; pf1 22:30 BP 101 / 67; Pulse 62; Resp 16; Pulse Ox 95% on R/A; Pain 8/10; pf1 23:30 BP 121 / 63; Pulse 57; Resp 16; Pulse Ox 96% on R/A; pf1 02/11 00:24 BP 109 / 69; Pulse 59; Resp 16; Pulse Ox 95% on R/A; pf1 02:00 BP 122 / 78; Pulse 57; Resp 16; Temp 98.7; Pulse Ox 96% on R/A; pf1 02:59 BP 116 / 70; Pulse 62; Resp 16; Temp 98; Pulse Ox 97% on R/A; Pain 5/10; pf1 ED Course: 02/10 21:30 Patient has correct armband on for positive identification. Placed in gown. Bed in low pf1 position. Call light in reach. Side rails up X 1. 21:30 Arm band placed on left wrist. pf1 21:45 Patient arrived in ED. wm 21:48 Denisa Aleman MD is Attending Physician. sd2 21:58 Mary fuentes, CARIDAD is Primary Nurse. pf1 23:19 US Extremity Venous Unilateral Ltd In Process Unspecified. EDMS 02/11 00:21 No provider procedures requiring assistance completed. pf1 03:03 Triage completed. pf1 03:03 Patient did not have IV access during this emergency room visit. pf1 Administered Medications: No medications were administered Medication: 02/10 21:30 VIS not applicable for this client. pf1 Outcome: 02/11 00:32 Discharge ordered by . sd2 03:01 Discharged to [facility]. Report called to [facility] 03:01 Condition: stable 03:01 Discharge instructions given to patient, [facility], Instructed on discharge instructions, follow up and referral plans. Demonstrated understanding of instructions, follow-up care. 03:05 Patient left the ED. pf1 Signatures: Dispatcher [employer] EDMS Barrington Sarmientondy wm Love, Denisa, MD MD sd2 Mary fuentes, CARIDAD RN pf1
[2022-02-11 03:28] VITALS: BP 116/70; TEMP 98; O2SAT 97
--- NOTE | 2022-02-11 17:42 | RAD REPORT ---
EXAM DESCRIPTION: US - Extremity Venous Uni Ltd - 02/10/2022 11:17 pm CLINICAL HISTORY: 71 years, Male, r/o DVT, morris COMPARISON: None. FINDINGS: Multiple grayscale images as well as duplex Doppler ultrasound (color and spectral analysi s) of the left lower activity were performed. Left common femoral vein, left superficial femoral vein, left popliteal vein, left posterior tibial a nd peroneal veins at the level of the calf were imaged. Spectral waveform demonstrate normal compre ssibility, phasicity and augmentation. No intraluminal defects were seen. IMPRESSION: No sonographic evidence of left lower extremity deep venous thrombosis. Electronically signed by: Toño Hameed MD 02/10/2022 11:34 PM DRY MOLDER Due to temporary technical issues with the PACS/Fluency reporting system, reports are being signed by the in house radiologists without review as a courtesy to insure prompt reporting. The interpreting radiologist is fully responsible for the content of the report.
== END 2022-02-11 03:05 | disposition home or self-care (01) ==
LOC: ER 21:43
DX: R60.0 Localized edema (principal); M79.662 Pain in left lower leg
CPT/HCPCS: 93971; 99283

== ENCOUNTER 2022-02-26 11:14 | Observation (INO) | payer OTHER ==
--- OUTSIDE RECORDS SUMMARY | 2022-02-26 11:26 | XMS REPORT | Continuity of Care Document ---
:[address] [facility] t Address [address] [place] [place] [address] Care Team Providers Name Role Phone Edgardo García Primary Care Physician APURVA HOWARD Attending Clinician Unavailable ARIANE ROUSE Attending Clinician Unavailable Doctor Unassigned, [place] Attending Clinician Unavailable SUKI KIRKPATRICK Attending Clinician Unavailable Alma Rosa Hernández Attending Clinician Suki Kirkpatrick MD Attending Clinician KVNG BRAN Attending Clinician Unavailable Guillermo BRANTLEYSWNelia Attending Clinician Tatyana Sweeney DO Attending Clinician Pob, [facility] Main Attending Clinician Unavailable Leticia Gomez PT Attending Clinician Unavailable NAILA GIRALDO Attending Clinician Unavailable NAILA GIRALDO Attending Clinician Unavailable Noy Og LMSW Attending Clinician Unavailable Apurva Howard MD Attending Clinician ALMA ROSA CARRERA Attending Clinician Unavailable Edgardo García Attending Clinician Eric Cole MD Attending Clinician ERCI COLE Attending Clinician Unavailable ERIC COLE Attending [...] Admitting Clinician NAILA GIRALDO Admitting Clinician Unavailable Gerhard JOHNSON, Leon Admitting Clinician LEON HENNESSY Admitting Clinician Unavailable Payers Payer Name Policy Type Policy Number Effective Date Expiration Date Demond quinones MEDICARE PART A [id number] 2015 \T\ B 00:00:00 BCBS FED SELECT [id number] 2004 00:00:00 Problems Condition Condition Condition Status Onset Resolution Last Treating Co mments Source Name Details Category Date Date Treatment Clinician Date Hip pain Hip pain Disease Active 2021-02 Unive rs 2-05 ity of 00:00: [facility] Branch Arthritis Arthritis Disease Active 2021-02 Overview: Univers of left of left 02-25 Formattin ity o f hip hip 00:00: g of this [place] 00 note Medical might be Branch different from the original. Added automatic ally from request for surgery [id number] Walker as [place] as Disease Active 2021-02 Uni vers ambulation ambulation - it y of aid aid 00:00: Medical Branch Other Other Disease Active 2021-02 Univers chronic chronic - ity of pain pain 00:00: [facility] Branch Other Other Disease Active 2021-02 Univers specified specified 0-24 ity of anemias anemias 00:00: [facility] Branch Frequent Frequent Disease Active 2021-02 Unive rs falls falls 0-24 ity of 00:00: [facility] Branch Hyponatrem Hyponatrem Disease Active U nivers ia ia 8-24 ity of 00:00: [facility] Branch Controlled Controlled Disease 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 without without HGB A1C long-term long-term (%) Date current current Value use of use of insulin insulin 2 8.4 (H) No results found for: [id number] Late onset Late onset Disease Active U nivers Alzheimer Alzheimer 8-24 ity of disease disease 00:00: [place] [facility] 1st degree 1st degree Disease Active U nivers AV block AV block 8-24 ity of 00:00: [place] [facility] Other Other Disease Active Univers specified specified 8-24 ity of hypothyroi hypothyroi 00:[place] dis[place] dism 00 Medical Branch Chronic Chronic Disease Recurre Univer s indwelling indwelling nce 8-24 it y of Gonzalez Gonzalez 00:00: [place] catheter catheter 00 Medica l Branch Hyperkalem Hyperkalem Disease Active U nivers ia ia 8-24 ity of 00:00: [place] [facility] Syncope, Syncope, Disease Active Unive rs unspecifie unspecifie 8-18 it y of d syncope d syncope 00:00: Shai lagos type type 00 Medical Branch Chronic Chronic Disease Active Univers kidney kidney 6-30 ity of disease, disease, 00:00: [place] stage 3 stage 3 00 Medical unspecifie [...] vers nodule nodule 6-28 ity of 00:00: [place] [facility] Fall, Fall, Disease Active Univers [...] Un pat INGREDI 6-27 ity of 00:00: [address] Morphine Propensi Active Hallucinatio Univers ty to ns 6-27 ity of adverse 00:00: [place] reaction [facility] Morphine Propensi Active Hallucinatio Methodi ty to ns 5-26 st adverse 00:00: Hospita reaction 00 l s to drug Family History Family Member Diagnosis Comments Start Date Stop Date Source Natural daughter Diabetes [facility] Natural daughter Kidney disease [facility] Natural father Hypertension [facility] Social History Social Habit Start Date Stop Date Quantity Comments Source Exposure to 2022-01-17 2022-01-27 Not sure University of SARS-CoV-2 00:00:00 10:09:00 [facility] [place] [facility] (event) [place] Tobacco use and 2021-08-26 2021-08-26 Smokeless tobacco Un iversity of exposure 00:00:00 00:00:00 non-user [facility] Education 2021-08-01 2021-08-01 14 [facility] 00:00:00 00:00:00 [facility] Alcohol intake 2021-07-18 2021-07-18 Lifetime [employer] 00:00:00 00:00:00 non-drinker Hospital (finding) Sex Ass[birth year] At [birth year] [employer] 00:00:00 00:00:00 Hospital Smoking Status Start Date Stop Date Source Never smoked tobacco [facility] Medications Ordered Filled Start Stop Current Ordering Indication Dosage Frequency Signature Comments Components Source Medication Medication Date Date Medication? Clinician (SIG) Name Name aspirin 2021-02 Yes 325mg 325 mg, Univer s E.C. 2-07 Oral, ity of (ECOTRIN) 15:00: DAILY, [place] tablet 325 00 First dose Med ical mg on [facility] 01/11/22 at 0900, Until Discontinu ed, Routine aspirin 2021-02 Yes 325mg 325 mg, Univer s E.C. 2-07 Oral, ity of (ECOTRIN) 15:00: DAILY, [place] tablet 325 00 First dose Med ical mg on [facility] Branch 01/11/22 at 0900, Until Discontinu ed, Routine bisacodyL 2021-02 10mg 10 mg, Unive rs (DULCOLAX) 207 Rectal, ity o f suppository 14:33: 14:52 QHSPRN, 1 [place] 10 mg 29 :00 dose, Medical Starting Branch on Sun01/11/22 at 0833, Until Sun01/11/22 at 0852, Routine, Constipati on unresolved by oral medication s glimepiride 2021-02 Yes 1mg Take 1 mg U nivers 1 mg tablet 2-07 by mouth ity of 14:18: daily with [place] 35 breakfast. Medical Branch amiodarone 2021-02 Yes 200mg Take 200 Un pat 200 mg 2-07 mg by ity of tablet 14:18: mouth [place] 35 daily. Medical Branch carvediloL 2021-02 Yes 25mg Take 25 mg U nivers 25 mg 2-07 by mouth 2 ity of tablet 14:18: (two) [place] 35 times Medical daily with Branch meals. DULoxetine 2021-02 Yes 60mg Take 60 mg U nivers 60 mg 2-07 by mouth ity of capsule 14:18: daily. [place] [address] Medical Branch ferrous 2021-02 Yes 325mg Take 325 Unive rs sulfate 325 2-07 mg by ity of mg (65 mg 14:18: mouth 2 [place] iron) EC 35 (two) Medical tablet times Branch daily with meals. gabapentin 2021-02 Yes 400mg Take 400 Un pat 400 mg 2-07 mg by ity of capsule 14:18: mouth 2 [place] [address] (two) Medical times Branch daily. omeprazole 2021-02 Yes 20mg Take 20 mg U nivers 20 mg 2-07 by mouth ity of capsule 14:18: daily. [address] Branch tamsulosin 2021-02 Yes Take by Univ ers 0.4 mg 24 2-07 mouth ity of hr capsule 14:18: daily. [address] Branch traZODone 2021-02 Yes 200mg Take 200 Uni vers 150 mg 2-07 mg by ity of tablet 14:18: mouth in [place] [address] the Medical morning. Branch Take 2 tablets by mouth at bedtime, May take an additional tablet in the middle of the night. glimepiride 2021-02 Yes 1mg Take 1 mg U nivers 1 mg tablet 2-07 by mouth ity of 14:18: daily with [place] [address] breakfast. Medical Branch amiodarone 2021-02 Yes 200mg Take 200 Un pat 200 mg 2-07 mg by ity of tablet 14:18: mouth [place] [address] daily. Medical Branch carvediloL 2021-02 Yes 25mg Take 25 mg U nivers 25 mg 2-07 by mouth 2 ity of tablet 14:18: (two) [place] [address] times [facility] daily with Branch meals. DULoxetine 2021-02 Yes 60mg Take 60 mg U nivers 60 mg 2-07 by mouth ity of capsule 14:18: daily. [place] [address] Medical Branch ferrous 2021-02 Yes 325mg Take 325 Unive rs sulfate 325 2-07 mg by ity of mg (65 mg 14:18: mouth 2 [facility]) EC 35 (two) Medical tablet times [place] daily with meals. gabapentin 2021-02 Yes 400mg Take 400 Un pat 400 mg 2-07 mg by ity of capsule 14:18: mouth 2 [place] [address] (two) Medical times Branch daily. omeprazole 2021-02 Yes 20mg Take 20 mg U nivers 20 mg 2-07 by mouth ity of capsule 14:18: daily. [address] tamsulosin 2021-02 Yes Take by Univ ers 0.4 mg 24 2-07 mouth ity of hr capsule 14:18: daily. [address] Branch traZODone 2021-02 Yes 200mg Take 200 Uni vers 150 mg 2-07 mg by ity of tablet 14:18: mouth in [place] [address] the Medical morning. Branch Take 2 tablets by mouth at bedtime, May take an additional tablet in the middle of the night. glimepiride 2021-02 Yes 1mg Take 1 mg U nivers 1 mg tablet 2-07 by mouth ity of 14:18: daily with [place] [address] breakfast. Medical Branch amiodarone 2021-02 Yes 200mg Take 200 Un pat 200 mg 2-07 mg by ity of tablet 14:18: mouth [place] [address] daily. Medical Branch carvediloL 2021-02 Yes 25mg Take 25 mg U nivers 25 mg 2-07 by mouth 2 ity of tablet 14:18: (two) [address] daily with Branch meals. DULoxetine 2021-02 Yes 60mg Take 60 mg U nivers 60 mg 2-07 by mouth ity of capsule 14:18: daily. [address] ferrous 2021-02 Yes 325mg Take 325 Unive rs sulfate 325 2-07 mg by ity of mg (65 mg 14:18: mouth 2 [facility]) 35 (two) Medical tablet times [place] daily with meals. gabapentin 2021-02 Yes 400mg Take 400 Un pat 400 mg 2-07 mg by ity of capsule 14:18: mouth 2 [place] 35 (two) Medical times [place] daily. omeprazole 2021-02 Yes 20mg Take 20 mg U nivers 20 mg 2-07 by mouth ity of capsule 14:18: daily. [address] tamsulosin 2021-02 Yes Take by Univ ers 0.4 mg 24 2-07 mouth ity of hr capsule 14:18: daily. [address] traZODone 2021-02 Yes 200mg Take 200 Uni vers 150 mg 2-07 mg by ity of tablet 14:18: mouth in [place] [address] the Medical morning. Branch Take 2 tablets by mouth at bedtime, May take an additional tablet in the middle of the night. glimepiride 2021-02 Yes 1mg Take 1 mg U nivers 1 mg tablet 2-07 by mouth ity of 14:18: daily with [place] [address] breakfast. Medical Branch amiodarone 2021-02 Yes 200mg Take 200 Un pat 200 mg 2-07 mg by ity of tablet 14:18: mouth [place] [address] daily. Medical Branch carvediloL 2021-02 Yes 25mg Take 25 mg U nivers 25 mg 2-07 by mouth 2 ity of tablet 14:18: (two) [address] daily with Branch meals. DULoxetine 2021-02 Yes 60mg Take 60 mg U nivers 60 mg 2-07 by mouth ity of capsule 14:18: daily. [place] [address] Medical Branch ferrous 2021-02 Yes 325mg Take 325 Unive rs sulfate 325 2-07 mg by ity of mg (65 mg 14:18: mouth 2 [place] iron) 35 (two) Medical tablet times [place] daily with meals. gabapentin 2021-02 Yes 400mg Take 400 Un pat 400 mg 2-07 mg by ity of capsule 14:18: mouth 2 [place] 35 (two) Medical times Branch daily. omeprazole 2021-02 Yes 20mg Take 20 mg U nivers 20 mg 2-07 by mouth ity of capsule 14:18: daily. [address] Branch tamsulosin 2021-02 Yes Take by Univ ers 0.4 mg 24 2-07 mouth ity of hr capsule 14:18: daily. [address] Branch traZODone 2021-02 Yes 200mg Take 200 Uni vers 150 mg 2-07 mg by ity of tablet 14:18: mouth in [place] [address] the Medical morning. Branch Take 2 tablets by mouth at bedtime, May take an additional tablet in the middle of the night. glimepiride 2021-02 Yes 1mg Take 1 mg U nivers 1 mg tablet 2-07 by mouth ity of 14:18: daily with [place] [address] breakfast. Medical Branch amiodarone 2021-02 Yes 200mg Take 200 Un pat 200 mg 2-07 mg by ity of tablet 14:18: mouth [place] [address] daily. Medical Branch carvediloL 2021-02 Yes 25mg Take 25 mg U nivers 25 mg 2-07 by mouth 2 ity of tablet 14:18: (two) [place] 35 times Medical daily with Branch meals. DULoxetine 2021-02 Yes 60mg Take 60 mg U nivers 60 mg 2-07 by mouth ity of capsule 14:18: daily. [place] [address] Medical Branch ferrous 2021-02 Yes 325mg Take 325 Unive rs sulfate 325 2-07 mg by ity of mg (65 mg 14:18: mouth 2 [place] iron) EC 35 (two) Medical tablet times Branch daily with meals. gabapentin 2021-02 Yes 400mg Take 400 Un pat 400 mg 2-07 mg by ity of capsule 14:18: mouth 2 [place] [address] (two) Medical times Branch daily. omeprazole 2021-02 Yes 20mg Take 20 mg U nivers 20 mg 2-07 by mouth ity of capsule 14:18: daily. [address] Branch tamsulosin 2021-02 Yes Take by Univ ers 0.4 mg 24 2-07 mouth ity of hr capsule 14:18: daily. [address] Branch traZODone 2021-02 Yes 200mg Take 200 Uni vers 150 mg 2-07 mg by ity of tablet 14:18: mouth in [place] [address] the Medical morning. Branch Take 2 tablets by mouth at bedtime, May take an additional tablet in the middle of the night. glimepiride 2021-02 Yes 1mg Take 1 mg U nivers 1 mg tablet 2-07 by mouth ity of 14:18: daily with [place] [address] breakfast. Medical Branch amiodarone 2021-02 Yes 200mg Take 200 Un pat 200 mg 2-07 mg by ity of tablet 14:18: mouth [place] [address] daily. Medical Branch carvediloL 2021-02 Yes 25mg Take 25 mg U nivers 25 mg 2-07 by mouth 2 ity of tablet 14:18: (two) [address] daily with Branch meals. DULoxetine 2021-02 Yes 60mg Take 60 mg U nivers 60 mg 2-07 by mouth ity of capsule 14:18: daily. [place] [address] Medical Branch ferrous 2021-02 Yes 325mg Take 325 Unive rs sulfate 325 2-07 mg by ity of mg (65 mg 14:18: mouth 2 [facility]) EC 35 (two) Medical tablet times Branch daily with meals. gabapentin 2021-02 Yes 400mg Take 400 Un pat 400 mg 2-07 mg by ity of capsule 14:18: mouth 2 [place] [address] (two) Medical times Branch daily. omeprazole 2021-02 Yes 20mg Take 20 mg U nivers 20 mg 2-07 by mouth ity of capsule 14:18: daily. [address] Branch tamsulosin 2021-02 Yes Take by Univ ers 0.4 mg 24 2-07 mouth ity of hr capsule 14:18: daily. [address] Branch traZODone 2021-02 Yes 200mg Take 200 Uni vers 150 mg 2-07 mg by ity of tablet 14:18: mouth in [place] [address] the Medical morning. Branch Take 2 tablets by mouth at bedtime, May take an additional tablet in the middle of the night. glimepiride 2021-02 Yes 1mg Take 1 mg U nivers 1 mg tablet 2-07 by mouth ity of 14:18: daily with [place] [address] breakfast. Medical Branch amiodarone 2021-02 Yes 200mg Take 200 Un pat 200 mg 2-07 mg by ity of tablet 14:18: mouth [place] [address] daily. Medical Branch carvediloL 2021-02 Yes 25mg Take 25 mg U nivers 25 mg 2-07 by mouth 2 ity of tablet 14:18: (two) [address] daily with Branch meals. DULoxetine 2021-02 Yes 60mg Take 60 mg U nivers 60 mg 2-07 by mouth ity of capsule 14:18: daily. [place] [address] Medical Branch ferrous 2021-02 Yes 325mg Take 325 Unive rs sulfate 325 2-07 mg by ity of mg (65 mg 14:18: mouth 2 [facility]) [facility] (two) Medical tablet times [place] daily with meals. gabapentin 2021-02 Yes 400mg Take 400 Un pat 400 mg 2-07 mg by ity of capsule 14:18: mouth 2 [place] [address] (two) Medical times Branch daily. omeprazole 2021-02 Yes 20mg Take 20 mg U nivers 20 mg 2-07 by mouth ity of capsule 14:18: daily. [address] Branch tamsulosin 2021-02 Yes Take by Univ ers 0.4 mg 24 2-07 mouth ity of hr capsule 14:18: daily. [address] Branch traZODone 2021-02 Yes 200mg Take 200 Uni vers 150 mg 2-07 mg by ity of tablet 14:18: mouth in [place] [address] the Medical morning. Branch Take 2 tablets by mouth at bedtime, May take an additional tablet in the middle of the night. glimepiride 2021-02 Yes 1mg Take 1 mg U nivers 1 mg tablet 2-07 by mouth ity of 14:18: daily with [place] [address] breakfast. Medical Branch amiodarone 2021-02 Yes 200mg Take 200 Un pat 200 mg 2-07 mg by ity of tablet 14:18: mouth [place] [address] daily. Medical Branch carvediloL 2021-02 Yes 25mg Take 25 mg U nivers 25 mg 2-07 by mouth 2 ity of tablet 14:18: (two) [address] daily with Branch meals. DULoxetine 2021-02 Yes 60mg Take 60 mg U nivers 60 mg 2-07 by mouth ity of capsule 14:18: daily. [place] [address] Medical Branch ferrous 2021-02 Yes 325mg Take 325 Unive rs sulfate 325 2-07 mg by ity of mg (65 mg 14:18: mouth 2 [place] iron) [facility] (two) Medical tablet times [place] daily with meals. gabapentin 2021-02 Yes 400mg Take 400 Un pat 400 mg 2-07 mg by ity of capsule 14:18: mouth 2 [place] 35 (two) Medical times Branch daily. omeprazole 2021-02 Yes 20mg Take 20 mg U nivers 20 mg 2-07 by mouth ity of capsule 14:18: daily. [address] Branch tamsulosin 2021-02 Yes Take by Univ ers 0.4 mg 24 2-07 mouth ity of hr capsule 14:18: daily. [address] Branch traZODone 2021-02 Yes 200mg Take 200 Uni vers 150 mg 2-07 mg by ity of tablet 14:18: mouth in [place] [address] the Medical morning. Branch Take 2 tablets by mouth at bedtime, May take an additional tablet in the middle of the night. polyethylen 2021-02 Yes [id number] 17g Take 1 Univers e glycol 2-07 Packet by ity of 3350 17 00:00: mouth in [place] gram powder 00 the Medical morning Branch and 1 Packet in the evening. As needed HYDROcodone 2021-02 Yes [id number] 1{tbl} Take 1 Un pat -acetaminop 2-07 tablet by ity of hen 5-325 00:00: mouth [place] mg tablet 00 every 6 Medical (six) Branch hours as needed for Pain (scale 7-10). Indication s: acute pain polyethylen 2021-02 Yes [id number] 17g Take 1 Univers e glycol 2-07 [...] Indication s: acute pain polyethylen 2021-02 Yes [id number] 17g Take 1 Univers e glycol 2-07 [...] Indication s: acute pain polyethylen 2021-02 Yes [id number] 17g Take 1 Univers e glycol 2-07 [...] Indication s: acute pain polyethylen 2021-02 Yes [id number] 17g Take 1 Univers e glycol 2-07 [...] Indication s: acute pain polyethylen 2021-02 Yes [id number] 17g Take 1 Univers e glycol 2-07 [...] Indication s: acute pain polyethylen 2021-02 Yes [id number] 17g Take 1 Univers e glycol 2-07 [...] Indication s: acute pain polyethylen 2021-02 Yes [id number] 17g Take 1 Univers e glycol 2-07 [...] Indication s: acute pain aspirin 2021-02- Yes [id number] 325mg Take 1 Univers E.C. 325 mg 03-14 [id number] tablet by i ty of EC tablet 00:00: 05:59 mouth in [place] 00 :00 the Medical morning Branch and 1 tablet in the evening. Do all this for 27 days. aspirin 2021-02- Yes [id number] 325mg Take 1 Univers E.C. 325 mg 03-14 [id number] tablet by i ty of EC tablet 00:00: 05:59 mouth in [place] 00 :00 the Medical morning Branch and 1 tablet in the evening. Do all this for 27 days. aspirin 2021-02- Yes [id number] 325mg Take 1 Univers E.C. 325 mg 03-14 [id number] tablet by i ty of EC tablet 00:00: 05:59 mouth in [place] 00 :00 the Medical morning Branch and 1 tablet in the evening. Do all this for 27 days. aspirin 2021-02- Yes [id number] 325mg Take 1 Univers E.C. 325 mg 03-14 [id number] tablet by i ty of EC tablet 00:00: 05:59 mouth in [place] 00 :00 the Medical morning Branch and 1 tablet in the evening. Do all this for 27 days. aspirin 2021-02- Yes [id number] 325mg Take 1 Univers E.C. 325 mg 03-14 [id number] tablet by i ty of EC tablet 00:00: 05:59 mouth in [place] 00 :00 the Medical morning Branch and 1 tablet in the evening. Do all this for 27 days. aspirin 2021-02- Yes [id number] 325mg Take 1 Univers E.C. 325 mg 03-14 [id number] tablet by i ty of EC tablet 00:00: 05:59 mouth in [place] 00 :00 the Medical morning Branch and 1 tablet in the evening. Do all this for 27 days. aspirin 2021-02- Yes [id number] 325mg Take 1 Univers E.C. 325 mg 03-14 [id number] tablet by i ty of EC tablet 00:00: 05:59 mouth in [place] 00 :00 the Medical morning Branch and 1 tablet in the evening. Do all this for 27 days. polyethylen 2021-02 Yes 17g 17 g, Unive rs e glycol 2-06 Oral, ity of 3350 powder 23:45: [place]ILY[place] 17 [place] 00 First dose Medical on [facility] 01/10/22 at 1745, Until Discontinu ed, Routine enoxaparin 2021-02 Yes 40mg 40 mg, Unive rs (LOVENOX) 2-06 Subcutaneo ity of injection 22:15: us, Q24H, [place] 40 mg 00 First dose Medical on [facility] 01/10/22 at 1615, Until Discontinu ed, Routine enoxaparin 2021-02 Yes 40mg 40 mg, Unive rs (LOVENOX) 2- Subcutaneo ity of injection 22:15: us, Q24H, [place] 40 mg 00 First dose Medical on Branch 01/10/22 at 1615, Until Discontinu ed, Routine HYDROcodone 2021-02 Yes 1{tbl} 1 tablet, Univers -acetaminop 2-06 Oral, ity of hen (NORCO 19:11: Q6HPRN, [place] 5) 5-325 mg 15 Starting Medi [place] tablet 1 on [facility] tablet 01/10/22 at 1311, Until Discontinu ed, Routine, Pain (scale 7-10) HYDROcodone 2021-02 Yes 1{tbl} 1 tablet, Univers -acetaminop 2-06 Oral, ity of hen (NORCO 19:11: Q6HPRN, [place] 5) 5-325 mg 15 Starting Medi [place] tablet 1 on [facility] tablet 01/10/22 at 1311, Until Discontinu ed, Routine, Pain (scale 7-10) cefTRIAXone 2021-02- Yes 1000mg 1,000 mg, Univers (ROCEPHIN) 03-13 IV ity of 1,000 mg in 16:30: 16:29 [place], [place] NaCl 0.9% 00 :00 Q24H ABX, [...] ity of 1,000 mg in 16:30: 16:29 [place], [place] NaCl 0.9% 00 :00 Q24H ABX, [...] s mg 00 First dose Medical on [facility] 01/10/22 at 0900, Until Discontinu ed, Routine DULoxetine 2021-02 Yes 60mg 60 mg, Unive rs (CYMBALTA) 2-06 Oral, ity of capsule 60 15:00: DAILY, [place] mg 00 First dose Medical on [facility] 01/10/22 at 0900, Until Discontinu ed, Routine amiodarone 2021-02 Yes 200mg 200 mg, Uni vers (PACERONE) 2-06 Oral, ity of tablet 200 15:00: DAILY, [place] mg 00 First dose Medical on [facility] 01/10/22 at 0900, Until Discontinu ed, Routine tamsulosin 2021-02 Yes .4mg 0.4 mg, Univ ers (FLOMAX) 2-06 Oral, ity of capsule 0.4 15:00: DAILY, [place] mg 00 First dose Medical on [facility] 01/10/22 at 0900, Until Discontinu ed, Routine DULoxetine 2021-02 Yes 60mg 60 mg, Unive rs (CYMBALTA) 2-06 Oral, ity of capsule 60 15:00: DAILY, [place] mg 00 First dose Medical on [facility] 01/10/22 at 0900, Until Discontinu ed, Routine amiodarone 2021-02 Yes 200mg 200 mg, Uni vers (PACERONE) 2-06 Oral, ity of tablet 200 15:00: DAILY, [place] mg 00 First dose Medical on [facility] 01/10/22 at 0900, Until Discontinu ed, Routine levothyroxi 2021-02 Yes 25ug 25 mcg, Uni vers ne 2-06 Oral, ity of (SYNTHROID) 12:00: QAM-0600, [place] tablet 25 00 First dose Medi doyle mcg on [facility] 01/10/22 at 0600, Until Discontinu ed, Routine levothyroxi 2021-02 Yes 25ug 25 mcg, Uni vers ne 2-06 Oral, ity of (SYNTHROID) 12:00: QAM-0600, [place] tablet 25 00 First dose Medi doyle mcg on [facility] 01/10/22 at 0600, Until Discontinu ed, Routine traZODone 2021-02- No 100mg 100 mg, Uni vers (DESYREL) 2-07 17- Oral, ity of tablet 100 10:30: 09:47 ONCE, 1 [place] mg 00 :00 dose, On [facility] 01/10/22 at 0430, Routine traZODone 2021-02- No 100mg 100 mg, Uni vers (DESYREL) 2-07 17- Oral, ity of tablet 100 10:30: 09:47 ONCE, 1 [place] mg 00 :00 dose, On [facility] 01/10/22 at 0430, Routine Sliding 2021-02 Yes [facility] Scale 2-06 us, TID ity of Insulin - 03:00: MEALS+HS, [place] Lispro 00 First dose Medical (HumaLOG) + on [facility] 01/09/22 at Testing 2100, Until Discontinu ed, Routine traZODone 2021-02 Yes 200mg 200 mg, [facility] ers (DESYREL) 2-06 Oral, QHS, ity of tablet 200 03:00: First dose [place] mg 00 on [facility] 01/09/22 at Branch 2100, Until Discontinu ed, Routine Sliding 2021-02 Yes [facility] ers Scale 2-06 us, TID ity of Insulin - 03:00: MEALS+HS, Harshad as Lispro 00 First dose Medical (HumaLOG) + on [facility] 01/09/22 at Testing 2100, Until Discontinu ed, Routine traZODone 2021-02 Yes 200mg 200 mg, Univ ers (DESYREL) 2-06 Oral, QHS, ity of tablet 200 03:00: First dose [place] mg 00 on [facility] 01/09/22 at Branch 2100, Until Discontinu ed, Routine docusate 2021-02 Yes 100mg 100 mg, [facility] (COLACE) 2-06 Oral, ity of capsule 100 02:00: Q12H, [place] mg 00 First dose Medical on [facility] 01/09/22 at 2000, Until Discontinu ed, Routine docusate 2021-02 Yes 100mg 100 mg, Unive rs (COLACE) 2-06 Oral, ity of capsule 100 02:00: Q12H, [place] mg 00 First dose Medical on [facility] 01/09/22 at 2000, Until Discontinu ed, Routine glucagon 2021-02 Yes 1mg 1 mg, Univers (GLUCAGEN 2-06 Intramuscu ity of DIAGNOSTIC 01:06: lar, PRN, [place] KIT) 23 Starting Medical injection 1 on [facility] 01/09/22 at 1906, Until Discontinu ed, ANNA, Blood Glucose < or = 70 mg/dL and patient is unable to swallow or has mental changes. dextrose 50 2021-02 Yes 25mL 25 mL, Univ ers % in water 2-06 Slow IV ity of (D50W) 01:06: Push, PRN, [place] injection 23 Starting Medica l 25 mL on [facility] 01/09/22 at 1906, Until Discontinu ed, ANNA, Blood Glucose < or = 70 mg/dL and patient is unable to swallow or has mental status changes. glucagon 2021-02 Yes 1mg 1 mg, Univers (GLUCAGEN 2-06 Intramuscu ity of DIAGNOSTIC 01:06: lar, PRN, [place] KIT) 23 Starting Medical injection 1 on [facility] 01/09/22 at 1906, Until Discontinu ed, ANNA, Blood Glucose < or = 70 mg/dL and patient is unable to swallow or has mental changes. dextrose 50 2021-02 Yes 25mL 25 mL, Univ ers % in water 2-06 Slow IV ity of (D50W) 01:06: Push, PRN, [place] injection 23 Starting Medica l 25 mL on [facility] 01/09/22 at 1906, Until Discontinu ed, ANNA, Blood Glucose < or = 70 mg/dL and patient is unable to swallow or has mental status changes. carvediloL 2021-02 Yes 25mg 25 mg, Unive rs (COREG) 2-05 Oral, BID ity of tablet 25 23:00: MEALS, [place] mg 00 First dose Medical on Sun01/09/22 at 1700, Until Discontinu ed, Routine carvediloL 2021-02 Yes 25mg 25 mg, Unive rs (COREG) 03-12 Oral, BID ity of tablet 25 23:00: MEALS, [place] mg 00 First dose Medical on [place] 01/09/22 at 1700, Until Discontinu ed, Routine ceFAZolin [...] No 325mg 325 mg, Unive rs E.C. 2-05 12-06 Oral, BID ity of (ECOTRIN) 23:00: 21:00 MEALS, 56 [place] tablet 325 00 :29 doses, Medical mg First dose Branch on Sun01/09/22 at 1700, Last dose on Sun02/06/22 at 0800, Routine traZODone 2021-02 Yes 200mg Take 200 Uni vers 150 mg 2-05 mg by ity of tablet 18:52: mouth in [place] [address] the Medical morning. Branch Take 2 tablets by mouth at bedtime, May take an additional tablet in the middle of the night. traZODone 2021-02 Yes 200mg Take 200 Uni vers 150 mg 2-05 mg by ity of tablet 18:52: mouth in [place] 55 the Medical morning. Branch Take 2 tablets by mouth at bedtime, May take an additional tablet in the middle of the night. lactated 2021-02- No 1000mL at 75 Unive rs ringers IV 2-05 12-06 mL/hr, ity of infusion 16:15: 15:25 1,000 mL, Harshad as 1,000 mL 00 :26 IV Medical Infusion, Branch CONTINUOUS , Starting on Sun01/09/22 at 1015, Until Sun01/10/22 at 0925, Routine, PACU lactated 2021-02- No 1000mL at 75 Unive rs ringers IV 2-05 12-06 mL/hr, ity of infusion 16:15: 15:25 1,000 mL, [place]arsh[place] as 1,000 mL 00 :26 IV Medical Infusion, Branch CONTINUOUS , Starting on Sun01/09/22 at 1015, Until Sun01/10/22 at 0925, Routine, PACU FENTanyl PF 2021-02 Yes 25ug 25 mcg, Uni vers (SUBLIMAZE 2-05 Slow IV ity of (PF)) 15:49: Push, [place] injection 16 Q4HPRN, Medical 25 mcg Starting [...] IV Push, ity of (PF)) 15:48: Q6HPRN, [place] injection 4 42 Starting Medi doyle mg on [place] 01/09/22 at 0948, Until Discontinu ed, Routine, Nausea and Vomiting (N/V) ondansetron 2021-02 Yes 4mg 4 mg, Slow Univers (ZOFRAN 2-05 IV Push, ity of (PF)) 15:48: Q6HPRN, [place] injection 4 42 Starting Medi doyle mg on [place] 01/09/22 at 0948, Until Discontinu ed, Routine, Nausea and Vomiting (N/V) sodium 2021-02- No PRN, Univers chloride 03-12 Starting ity of 0.9 % 14:24: 16:17 on Sun [place] irrigation 00 :22 01/09/22 at Med ical solution 0824, Branch Until Sun01/09/22 at 1017, Intra-op bupivacaine 2021-02- No PRN, Unive rs (preserv 03-12 Starting ity of free) 14:24: 16:17 on Sun [place] (SENSORCAIN 00 :22 01/09/22 at Ms dical E MPF) 0.25 0824, Branch % [...] Medical Infusion, Branch ONCE, 1 dose, On [facility] 01/09/22 at 0700, Routine, DSU Pre-op oxyCODONE-a [...] [place] mg 00 :00 dose, On [facility] Branch 01/09/22 at 0700, Routine, DSU Pre-op gabapentin 2021-02- No 300mg 300 mg, Un pat (NEURONTIN) 03-12 Oral, ity of tablet 300 13:00: 13:00 ONCE, 1 [place] as mg 00 :00 dose, On [facility] Branch 01/09/22 at 0700, Routine, DSU Pre-op [...] [place] mg 00 :00 dose, On [facility] Branch 01/09/22 at 0700, Routine, DSU Pre-op gabapentin 2021-02 No 300mg 300 mg, Un pat (NEURONTIN) 03-12 Oral, ity of tablet 300 13:00: 13:00 ONCE, 1 [place] as mg 00 :00 dose, On [facility] Branch 01/09/22 at 0700, Routine, DSU Pre-op [...] mouth 2 ity of tablet 09:51: (two) [place] 20 times Medical daily with Branch meals. DULoxetine 2021-02 Yes 60mg Take 60 mg U nivers 60 mg 2-05 by mouth ity of capsule 09:51: daily. [address] ferrous 2021-02 Yes 325mg Take 325 Unive rs sulfate 325 2-05 mg by ity of mg (65 mg 09:51: mouth 2 [place] iron) EC 20 (two) Medical tablet times [place] daily with meals. gabapentin 2021-02 Yes 400mg Take 400 Un pat 400 mg 2-05 mg by ity of capsule 09:51: mouth 2 [place] 20 (two) Medical times Branch daily. omeprazole 2021-02 Yes 20mg Take 20 mg U nivers 20 mg 2-05 by mouth ity of capsule 09:51: daily. [address] tamsulosin 2021-02 Yes Take by Univ ers 0.4 mg 24 2-05 mouth ity of hr capsule 09:51: daily. [address] glimepiride 2021-02 Yes 1mg Take 1 mg U nivers 1 mg tablet 2-05 by mouth ity of 09:51: daily with [place] 20 breakfast. [facility] Branch amiodarone 2021-02 Yes 200mg Take 200 Un pat 200 mg 2-05 mg by ity of tablet 09:51: mouth [place] 20 daily. [facility] Branch carvediloL 2021-02 Yes 25mg Take 25 mg U nivers 25 mg 2-05 by mouth 2 ity of tablet 09:51: (two) [place] 20 times Medical daily with Branch meals. DULoxetine 2021-02 Yes 60mg Take 60 mg U nivers 60 mg 2-05 by mouth ity of capsule 09:51: daily. [address] ferrous 2021-02 Yes 325mg Take 325 Unive rs sulfate 325 2-05 mg by ity of mg (65 mg 09:51: mouth 2 [place] iron) EC 20 (two) Medical tablet times Branch daily with meals. gabapentin 2021-02 Yes 400mg Take 400 Un pat 400 mg 2-05 mg by ity of capsule 09:51: mouth 2 [place] 20 (two) Medical times Branch daily. omeprazole 2021-02 Yes 20mg Take 20 mg U nivers 20 mg 2-05 by mouth ity of capsule 09:51: daily. [address] Branch tamsulosin 2021-02 Yes Take by Univ ers 0.4 mg 24 2-05 mouth ity of hr capsule 09:51: daily. [address] glimepiride 2021-02 Yes 1mg Take 1 mg U nivers 1 mg tablet 2-05 by mouth ity of 06:56: daily with [place] [address] breakfast. Medical Branch amiodarone 2021-02 Yes 200mg Take 200 Un pat 200 mg 2-05 mg by ity of tablet 06:56: mouth [place] [address] daily. Medical Branch carvediloL 2021-02 Yes 25mg Take 25 mg U nivers 25 mg 2-05 by mouth 2 ity of tablet 06:56: (two) [address] daily with Branch meals. DULoxetine 2021-02 Yes 60mg Take 60 mg U nivers 60 mg 2-05 by mouth ity of capsule 06:56: daily. [address] ferrous 2021-02 Yes 325mg Take 325 Unive rs sulfate 325 2-05 mg by ity of mg (65 mg 06:56: mouth 2 [place] iron) EC 20 (two) Medical tablet times Branch daily with meals. gabapentin 2021-02 Yes 400mg Take 400 Un pat 400 mg 2-05 mg by ity of capsule 06:56: mouth 2 [place] [address] (two) Medical times Branch daily. omeprazole 2021-02 Yes 20mg Take 20 mg U nivers 20 mg 2-05 by mouth ity of capsule 06:56: daily. [address] tamsulosin 2021-02 Yes Take by Univ ers 0.4 mg 24 2-05 mouth ity of hr capsule 06:56: daily. [address] traZODone 2021-02 Yes 150mg Take 150 Uni vers 150 mg 1-28 mg by ity of tablet 14:36: mouth in [place] [address] the Medical morning. Branch At traZODone 2021-02 Yes 150mg Take 150 Uni vers 150 mg 1-28 mg by ity of tablet 14:36: mouth in [place] [address] the Medical morning. Branch At traZODone 2021-02 Yes 150mg Take 150 Uni vers 150 mg 1-28 mg by ity of tablet 14:36: mouth in [place] [address] the Medical morning. Branch At glimepiride 2021-02 Yes 1mg Take 1 mg U nivers 1 mg tablet 1-28 by mouth ity of 14:26: daily with [place] [address] breakfast. Medical Branch amiodarone 2021-02 Yes 200mg Take 200 Un pat 200 mg 1-28 mg by ity of tablet 14:26: mouth [place] [address] daily. Medical Branch carvediloL 2021-02 Yes 25mg Take 25 mg U nivers 25 mg 1-28 by mouth 2 ity of tablet 14:26: (two) [place] [address] times [facility] daily with Branch meals. DULoxetine 2021-02 Yes 60mg Take 60 mg U nivers 60 mg 1-28 by mouth ity of capsule 14:26: daily. [place] [address] Medical Branch ferrous 2021-02 Yes 325mg Take 325 Unive rs sulfate 325 1-28 mg by ity of mg (65 mg 14:26: mouth 2 [facility] (two) Medical tablet times Branch daily with meals. gabapentin 2021-02 Yes 400mg Take 400 Un pat 400 mg 1-28 mg by ity of capsule 14:26: mouth 2 [place] 07 (two) Medical times Branch daily. omeprazole 2021-02 Yes 20mg Take 20 mg U nivers 20 mg 1-28 by mouth ity of capsule 14:26: daily. Medical Branch tamsulosin 2021-02 Yes Take by Univ ers 0.4 mg 24 1-28 mouth ity of hr capsule 14:26: daily. [address] [place] [address] Branch glimepiride 2021-02 Yes 1mg Take 1 mg U nivers 1 mg tablet 1-28 by mouth ity of 14:26: daily with [place] [address] breakfast. Medical Branch amiodarone 2021-02 Yes 200mg Take 200 Un pat 200 mg 1-28 mg by ity of tablet 14:26: mouth [place] [address] daily. Medical Branch carvediloL 2021-02 Yes 25mg [...] (65 mg 14:26: mouth 2 [place] iron) EC 07 (two) Medical tablet times Branch daily with meals. gabapentin 2021-02 Yes 400mg Take 400 Un pat 400 mg 1-28 mg by ity of capsule 14:26: mouth 2 (two) Medical times Branch daily. omeprazole 2021-02 [...] mouth 2 ity of tablet 14:26: (two) [place] [address] times Medical daily with Branch meals. DULoxetine 2021-02 Yes 60mg Take 60 mg U nivers 60 mg 1-28 by mouth ity of capsule 14:26: daily. Medical Branch ferrous 2021-02 Yes 325mg Take 325 Unive rs sulfate 325 1-28 mg by ity of mg (65 mg 14:26: mouth 2 [place] iron) EC 07 (two) Medical tablet times Branch daily with meals. gabapentin 2021-02 Yes 400mg Take 400 Un pat 400 mg 1-28 mg by ity of capsule 14:26: mouth 2 (two) Medical times Branch daily. omeprazole 2021-02 [...] mouth 2 ity of tablet 14:26: (two) [place] [address] times Medical daily with Branch meals. DULoxetine 2021-02 Yes 60mg Take 60 mg U nivers 60 mg 1-28 by mouth ity of capsule 14:26: daily. Medical Branch ferrous 2021-02 Yes 325mg Take 325 Unive rs sulfate 325 1-28 mg by ity of mg (65 mg 14:26: mouth 2 [place] iron) [facility] (two) Medical tablet times Branch daily with [...] mouth 2 ity of tablet 14:26: (two) [place] [address] times Medical daily with Branch meals. DULoxetine 2021-02 Yes 60mg Take 60 mg U nivers 60 mg 1-28 by mouth ity of capsule 14:26: daily. Medical Branch ferrous 2021-02 Yes 325mg Take 325 Unive rs sulfate 325 1-28 mg by ity of mg (65 mg 14:26: mouth 2 [place] iron) EC 07 (two) Medical tablet times Branch daily with meals. gabapentin 2021-02 Yes 400mg Take 400 Un pat 400 mg 1-28 mg by ity of capsule 14:26: mouth 2 [place] [address] (two) Medical times Branch daily. omeprazole 2021-02 [...] by mouth ity of 14:26: daily with [place] [address] breakfast. Medical Branch amiodarone 2021-02 Yes 200mg Take 200 Un pat 200 mg 1-28 mg by ity of tablet 14:26: mouth [place] [address] daily. Medical Branch carvediloL 2021-02 Yes 25mg Take 25 mg U nivers 25 mg 1-28 by mouth 2 ity of tablet 14:26: (two) [place] [address] times Medical daily with Branch meals. DULoxetine 2021-02 Yes 60mg Take 60 mg U nivers 60 mg 1-28 by mouth ity of capsule 14:26: daily. Medical Branch ferrous 2021-02 Yes 325mg Take 325 Unive rs sulfate 325 1-28 mg by ity of mg (65 mg 14:26: mouth 2 [place] iron) EC (two) Medical tablet times Branch daily with meals. gabapentin 2021-02 Yes 400mg Take 400 Un pat 400 mg 1-28 mg by ity of capsule 14:26: mouth 2 [place] [address] (two) Medical times Branch daily. omeprazole 2021-02 Yes 20mg Take 20 mg U nivers 20 mg 1-28 by mouth ity of capsule 14:26: daily. Medical Branch tamsulosin 2021-02 Yes Take by [facility] ers 0.4 mg 24 03-04 mouth ity of hr capsule 14:26: daily. [place] 07 Medical Branch SITagliptin 2021-02- No 50mg Take 50 mg Univers (JANUVIA) 02-25 by mouth ity o f 50 mg 10:32: 00:00 daily. [place] tablet 23 :00 [facility] Branch SITagliptin 2021-02 No 50mg Take 50 mg Univers (JANUVIA) 02-25 by mouth ity o f 50 mg 10:32: 00:00 daily. [place] tablet 23 :00 [facility] Branch SITagliptin 2021-02 No 50mg Take 50 mg Univers (JANUVIA) 02-25 by mouth ity o f 50 mg 10:32: 00:00 daily. [place] tablet 23 :00 [facility] SITagliptin 2021-02 No 50mg Take 50 mg Univers (JANUVIA) 02-25 by mouth ity o f 50 mg 10:32: 00:00 daily. [place] tablet 23 :00 Medical Branch traZODone 2021-02 Yes [id number] 200mg Take 2 Univers 100 mg 1-21 tablets by ity of tablet 00:00: mouth at [place] 00 bedtime. Medical May take Branch additional tablet in the middle of the night polyethylen 2021-02 Yes [id number] 17g Take 1 Univers e glycol 1-21 Packet by ity of 3350 17 00:00: mouth in [place] gram powder 00 the Medical morning Branch and 1 Packet in the evening. SITagliptin 2021-02 Yes [id number] 50mg Take 1 Univers (JANUVIA) 1-21 tablet by ity o f 50 mg 00:00: mouth in [place] tablet 00 the Medical morning. Branch traZODone 2021-02 Yes [id number] 200mg Take 2 Univers 100 mg 1-21 tablets by ity of tablet 00:00: mouth at [place] 00 bedtime. Medical May take Branch additional tablet in the middle of the night polyethylen 2021-02 Yes [id number] 17g Take 1 Univers e glycol 1-21 Packet by ity of 3350 17 00:00: mouth in [place] gram powder 00 the Medical morning Branch and 1 Packet in the evening. SITagliptin 2021-02 Yes [id number] 50mg Take 1 Univers (JANUVIA) 1-21 tablet by ity o f 50 mg 00:00: mouth in [place] tablet 00 the Medical morning. Branch traZODone 2021-02 Yes [id number] 200mg Take 2 Univers 100 mg 1-21 tablets by ity of tablet 00:00: mouth at [place] 00 bedtime. Medical May take Branch additional tablet in the middle of the night polyethylen 2021-02 Yes [id number] 17g Take 1 Univers e glycol 1-21 Packet by ity of 3350 17 00:00: mouth in [place] gram powder 00 the Medical morning Branch and 1 Packet in the evening. SITagliptin 2021-02 Yes [id number] 50mg Take 1 Univers (JANUVIA) 1-21 tablet by ity o f 50 mg 00:00: mouth in [place] tablet 00 the Medical morning. Branch traZODone 2021-02 Yes [id number] 200mg Take 2 Univers 100 mg 1-21 tablets by ity of tablet 00:00: mouth at [place] 00 bedtime. Medical May take Branch additional tablet in the middle of the night polyethylen 2021-02 Yes [id number] 17g Take 1 Univers e glycol 1-21 Packet by ity of 3350 17 00:00: mouth in [place] gram powder 00 the Medical morning Branch and 1 Packet in the evening. SITagliptin 2021-02 Yes [id number] 50mg Take 1 Univers (JANUVIA) 1-21 tablet by ity o f 50 mg 00:00: mouth in [place] tablet 00 the Medical morning. Branch traZODone 2021-02 Yes [id number] 200mg Take 2 Univers 100 mg 1-21 tablets by ity of tablet 00:00: mouth at [place] 00 bedtime. Medical May take Branch additional tablet in the middle of the night polyethylen 2021-02 Yes [id number] 17g Take 1 Univers e glycol 1-21 Packet by ity of 3350 17 00:00: mouth in [place] gram powder 00 the Medical morning Branch and 1 Packet in the evening. SITagliptin 2021-02 Yes [id number] 50mg Take 1 Univers (JANUVIA) 1-21 tablet by ity o f 50 mg 00:00: mouth in [place] tablet 00 the Medical morning. Branch traZODone 2021-02 Yes [id number] 200mg Take 2 Univers 100 mg 1-21 tablets by ity of tablet 00:00: mouth at [place] 00 bedtime. Medical May take Branch additional tablet in the middle of the night polyethylen 2021-02 Yes [id number] 17g Take 1 Univers e glycol 1-21 Packet by ity of 3350 17 00:00: mouth in [place] gram powder 00 the Medical morning Branch and 1 Packet in the evening. SITagliptin 2021-02 Yes [id number] 50mg Take 1 Univers (JANUVIA) 1-21 tablet by ity o f 50 mg 00:00: mouth in [place] tablet 00 the Medical morning. Branch traZODone 2021-02 Yes [id number] 200mg Take 2 Univers 100 mg 1-21 tablets by ity of tablet 00:00: mouth at [place] 00 bedtime. Medical May take Branch additional tablet in the middle of the night polyethylen 2021-02 Yes [id number] 17g Take 1 Univers e glycol 1-21 Packet by ity of 3350 17 00:00: mouth in [place] gram powder 00 the Medical morning Branch and 1 Packet in the evening. SITagliptin 2021-02 Yes [id number] 50mg Take 1 Univers (JANUVIA) 1-21 tablet by ity o f 50 mg 00:00: mouth in [place] tablet 00 the Medical morning. Branch traZODone 2021-02 Yes [id number] 200mg Take 2 Univers 100 mg 1-21 tablets by ity of tablet 00:00: mouth at [place] 00 bedtime. Medical May take Branch additional tablet in the middle of the night polyethylen 2021-02 Yes [id number] 17g Take 1 Univers e glycol 1-21 Packet by ity of 3350 17 00:00: mouth in [place] gram powder 00 the Medical morning Branch and 1 Packet in the evening. SITagliptin 2021-02 Yes [id number] 50mg Take 1 Univers (JANUVIA) 1-21 tablet by ity o f 50 mg 00:00: mouth in [place] tablet 00 the Medical morning. Branch traZODone 2021-02 Yes [id number] 200mg Take 2 Univers 100 mg 1-21 tablets by ity of tablet 00:00: mouth at [place] 00 bedtime. Medical May take Branch additional tablet in the middle of the night polyethylen 2021-02 Yes [id number] 17g Take 1 Univers e glycol 1-21 Packet by ity of 3350 17 00:00: mouth in [place] gram powder 00 the Medical morning Branch and 1 Packet in the evening. SITagliptin 2021-02 Yes [id number] 50mg Take 1 Univers (JANUVIA) 1-21 tablet by ity o f 50 mg 00:00: mouth in [place] tablet 00 the Medical morning. Branch polyethylen 2021-02 Yes [id number] 17g Take 1 Univers e glycol 1-21 Packet by ity of 3350 17 00:00: mouth in [place] gram powder 00 the Medical morning Branch and 1 Packet in the evening. SITagliptin 2021-02 Yes [id number] 50mg Take 1 Univers (JANUVIA) 1-21 tablet by ity o f 50 mg 00:00: mouth in [place] tablet 00 the Medical morning. Branch polyethylen 2021-02 Yes [id number] 17g Take 1 Univers e glycol 1-21 Packet by ity of 3350 17 00:00: mouth in [place] gram powder 00 the Medical morning Branch and 1 Packet in the evening. SITagliptin 2021-02 Yes [id number] 50mg Take 1 Univers (JANUVIA) 1-21 tablet by ity o f 50 mg 00:00: mouth in [place] tablet 00 the Medical morning. Branch polyethylen 2021-02 Yes [id number] 17g Take 1 Univers e glycol 1-21 Packet by ity of 3350 17 00:00: mouth in [place] gram powder 00 the Medical morning Branch and 1 Packet in the evening. SITagliptin 2021-02 Yes [id number] 50mg Take 1 Univers (JANUVIA) 1-21 tablet by ity o f 50 mg 00:00: mouth in [place] tablet 00 the Medical morning. Branch polyethylen 2021-02 Yes [id number] 17g Take 1 Univers e glycol 1-21 Packet by ity of 3350 17 00:00: mouth in [place] gram powder 00 the Medical morning Branch and 1 Packet in the evening. SITagliptin 2021-02 Yes [id number] 50mg Take 1 Univers (JANUVIA) 1-21 tablet by ity o f 50 mg 00:00: mouth in [place] tablet 00 the Medical morning. Branch polyethylen 2021-02 Yes [id number] 17g Take 1 Univers e glycol 1-21 Packet by ity of 3350 17 00:00: mouth in [place] gram powder 00 the Medical morning Branch and 1 Packet in the evening. SITagliptin 2021-02 Yes [id number] 50mg Take 1 Univers (JANUVIA) 1-21 tablet by ity o f 50 mg 00:00: mouth in [place] tablet 00 the Medical morning. Branch polyethylen 2021-02 Yes [id number] 17g Take 1 Univers e glycol 1-21 Packet by ity of 3350 17 00:00: mouth in [place] gram powder 00 the Medical morning Branch and 1 Packet in the evening. SITagliptin 2021-02 Yes [id number] 50mg Take 1 Univers (JANUVIA) 1-21 tablet by ity o f 50 mg 00:00: mouth in [place] tablet 00 the Medical morning. Branch polyethylen 2021-02 Yes [id number] 17g Take 1 Univers e glycol 1-21 Packet by ity of 3350 17 00:00: mouth in [place] gram powder 00 the Medical morning Branch and 1 Packet in the evening. SITagliptin 2021-02 Yes [id number] 50mg Take 1 Univers (JANUVIA) 1-21 tablet by ity o f 50 mg 00:00: mouth in [place] tablet 00 the Medical morning. Branch polyethylen 2021-02 Yes [id number] 17g Take 1 Univers e glycol 1-21 Packet by ity of 3350 17 00:00: mouth in [place] gram powder 00 the Medical morning Branch and 1 Packet in the evening. SITagliptin 2021-02 Yes [id number] 50mg Take 1 Univers (JANUVIA) 1-21 tablet by ity o f 50 mg 00:00: mouth in [place] tablet 00 the Medical morning. Branch polyethylen 2021-02 Yes [id number] 17g Take 1 Univers e glycol 1-21 Packet by ity of 3350 17 00:00: mouth in [place] gram powder 00 the Medical morning Branch and 1 Packet in the evening. SITagliptin 2021-02 Yes [id number] 50mg Take 1 Univers (JANUVIA) 1-21 tablet by ity o f 50 mg 00:00: mouth in [place] tablet 00 the Medical morning. Branch SITagliptin 2021-02 Yes [id number] 50mg Take 1 Univers (JANUVIA) 1-21 tablet by ity o f 50 mg 00:00: mouth in [place] tablet 00 the Medical morning. Branch SITagliptin 2021-02 Yes [id number] 50mg Take 1 Univers (JANUVIA) 1-21 tablet by ity o f 50 mg 00:00: mouth in [place] tablet 00 the Medical morning. Branch SITagliptin 2021-02 Yes [id number] 50mg Take 1 Univers (JANUVIA) 1-21 tablet by ity o f 50 mg 00:00: mouth in [place] tablet 00 the Medical morning. Branch SITagliptin 2021-02 Yes [id number] 50mg Take 1 Univers (JANUVIA) 1-21 tablet by ity o f 50 mg 00:00: mouth in [place] tablet 00 the Medical morning. Branch SITagliptin 2021-02 Yes [id number] 50mg Take 1 Univers (JANUVIA) 1-21 tablet by ity o f 50 mg 00:00: mouth in [place] tablet 00 the Medical morning. Branch SITagliptin 2021-02 Yes [id number] 50mg Take 1 Univers (JANUVIA) 1-21 tablet by ity o f 50 mg 00:00: mouth in [place] tablet 00 the Medical morning. Branch SITagliptin 2021-02 Yes [id number] 50mg Take 1 Univers (JANUVIA) 1-21 tablet by ity o f 50 mg 00:00: mouth in [place] tablet 00 the Medical morning. Branch SITagliptin 2021-02 Yes [id number] 50mg Take 1 Univers (JANUVIA) 1-21 tablet by ity o f 50 mg 00:00: mouth in [place] tablet 00 the Medical morning. Branch polyethylen 2021-02- No [id number] 17g Take 1 Univers e glycol 1-21 12-07 Packet by ity o f 3350 17 00:00: 00:00 mouth in [place] gram powder 00 :00 the Medical morning Branch and 1 Packet in the evening. traZODone 2021-02- No [id number] 200mg Take 2 Univers 100 mg 1-21 11-28 tablets by ity of tablet 00:00: 00:00 mouth at [place] 00 :00 bedtime. Medical May take Branch additional tablet in the middle of the night traZODone 2021-02- No [id number] 200mg Take 2 Univers 100 mg 1-21 11-28 tablets by ity of tablet 00:00: 00:00 mouth at [place] 00 :00 bedtime. Medical May take Branch additional tablet in the middle of the night traZODone 2021-02- No [id number] 200mg Take 2 Univers 100 mg -26 12-28 tablets by ity of tablet 00:00: 00:00 mouth at [place] 00 :00 bedtime. Medical May take Branch additional tablet in the middle of the night traZODone 2021-02- No [id number] 200mg Take 2 Univers 100 mg -26 12-28 tablets by ity of tablet 00:00: 00:00 mouth at [place] 00 :00 bedtime. Medical May take Branch additional tablet in the middle of the night traZODone 2021-02- No [id number] 200mg Take 2 [facility] 100 mg -26 12-28 tablets by ity of tablet 00:00: 00:00 mouth at [place] 00 :00 bedtime. Medical May take Branch additional tablet in the middle of the night traZODone 2021-02- No [id number] 200mg Take 2 [facility] 100 mg 02-25-28 tablets by ity of tablet 00:00: 00:00 mouth at [place] 00 :00 bedtime. Medical May take Branch additional tablet in the middle of the night celecoxib 2021-02- Yes [id number] 200mg Take 1 [facility] (CELEBREX) 02-14 [id number] capsule by i ty of 200 mg 00:00: 05:59 mouth in [place] capsule 00 :00 the [facility] morning [place] for 30 days. celecoxib 2021-02- Yes [id number] 200mg Take 1 [facility] (CELEBREX) 02-14 [id number] capsule by i ty of 200 mg 00:00: 05:59 mouth in [place] capsule 00 :00 the [facility] morning [place] for 30 days. celecoxib 2021-02- Yes [id number] 200mg Take 1 [facility] (CELEBREX) 02-14 [id number] capsule by i ty of 200 mg 00:00: 05:59 mouth in [place] capsule 00 :00 the [facility] morning [place] for 30 days. celecoxib 2021-02- Yes [id number] 200mg Take 1 [facility] (CELEBREX) 02-14 [id number] capsule by i ty of 200 mg 00:00: 05:59 mouth in [place] capsule 00 :00 the [facility] morning Branch for 30 days. celecoxib 2021-02- Yes [id number] 200mg Take 1 [facility] (CELEBREX) 02-14 [id number] capsule by i ty of 200 mg 00:00: 05:59 mouth in [place] capsule 00 :00 the [facility] morning Branch for 30 days. celecoxib 2021-02- Yes [id number] 200mg Take 1 [facility] (CELEBREX) 02-14 [id number] capsule by i ty of 200 mg 00:00: 05:59 mouth in [place] capsule 00 :00 the [facility] morning [place] for 30 days. celecoxib 2021-02- Yes [id number] 200mg Take 1 [facility] (CELEBREX) 02-14 [id number] capsule by i ty of 200 mg 00:00: 05:59 mouth in [place] capsule 00 :00 the [facility] morning [place] for 30 days. celecoxib 2021-02- Yes [id number] 200mg Take 1 [facility] (CELEBREX) 02-14 [id number] capsule by i ty of 200 mg 00:00: 05:59 mouth in [place] capsule 00 :00 the [facility] for 30 days. celecoxib 2021-02- Yes [id number] 200mg Take 1 [facility] (CELEBREX) 02-14 [id number] capsule by i ty of 200 mg 00:00: 05:59 mouth in [place] capsule 00 :00 the [facility] morning [place] for 30 days. celecoxib 2021-02- Yes [id number] 200mg Take 1 [facility] (CELEBREX) 02-14 [id number] capsule by i ty of 200 mg 00:00: 05:59 mouth in [place] capsule 00 :00 the [facility] morning Branch for 30 days. celecoxib 2021-02- Yes [id number] 200mg Take 1 [facility] (CELEBREX) 02-14 [id number] capsule by i ty of 200 mg 00:00: 05:59 mouth in [place] capsule 00 :00 the [facility] morning Branch for 30 days. celecoxib 2021-02- Yes [id number] 200mg Take 1 [facility] (CELEBREX) 02-14 [id number] capsule by i ty of 200 mg 00:00: 05:59 mouth in [place] capsule 00 :00 the [facility] morning Branch for 30 days. celecoxib 2021-02- Yes [id number] 200mg Take 1 [facility] (CELEBREX) 02-14 [id number] capsule by i ty of 200 mg 00:00: 05:59 mouth in [place] capsule 00 :00 the Medical morning Branch for 30 days. celecoxib 2021-02- Yes [id number] 200mg Take 1 [facility] (CELEBREX) 02-14 [id number] capsule by i ty of 200 mg 00:00: 05:59 mouth in [place] capsule 00 :00 the [facility] morning Branch for 30 days. celecoxib 2021-02- Yes [id number] 200mg Take 1 [facility] (CELEBREX) 02-14 [id number] capsule by i ty of 200 mg 00:00: 05:59 mouth in [place] capsule 00 :00 the [facility] morning Branch for 30 days. celecoxib 2021-02- Yes [id number] 200mg Take 1 [facility] (CELEBREX) 02-14 [id number] capsule by i ty of 200 mg 00:00: 05:59 mouth in [place] capsule 00 :00 the [facility] morning Branch for 30 days. celecoxib 2021-02- Yes [id number] 200mg Take 1 [facility] (CELEBREX) 02-14 [id number] capsule by i ty of 200 mg 00:00: 05:59 mouth in [place] capsule 00 :00 the [facility] morning Branch for 30 days. celecoxib 2021-02- Yes [id number] 200mg Take 1 [facility] (CELEBREX) 02-14 [id number] capsule by i ty of 200 mg 00:00: 05:59 mouth in [place] capsule 00 :00 the [facility] morning Branch for 30 days. celecoxib 2021-02- Yes [id number] 200mg Take 1 [facility] (CELEBREX) 02-14 [id number] capsule by i ty of 200 mg 00:00: 05:59 mouth in [place] capsule 00 :00 the [facility] morning Branch for 30 days. celecoxib 2021-02- Yes [id number] 200mg Take 1 [facility] (CELEBREX) 02-14 [id number] capsule by i ty of 200 mg 00:00: 05:59 mouth in [place] capsule 00 :00 the Medical morning Branch for 30 days. celecoxib 2021-02- Yes [id number] 200mg Take 1 [facility] (CELEBREX) 02-14 [id number] capsule by i ty of 200 mg 00:00: 05:59 mouth in [place] capsule 00 :00 the Medical morning Branch for 30 days. celecoxib 2021-02- Yes [id number] 200mg Take 1 [facility] (CELEBREX) 02-14 [id number] capsule by i ty of 200 mg 00:00: 05:59 mouth in [place] capsule 00 :00 the Medical morning Branch for 30 days. celecoxib 2021-02- Yes [id number] 200mg Take 1 [facility] (CELEBREX) 02-14 [id number] capsule by i ty of 200 mg 00:00: 05:59 mouth in [place] capsule 00 :00 the Medical morning Branch for 30 days. celecoxib 2021-02- Yes [id number] 200mg Take 1 [facility] (CELEBREX) 02-14 [id number] capsule by i ty of 200 mg 00:00: 05:59 mouth in [place] capsule 00 :00 the Medical morning Branch for 30 days. celecoxib 2021-02- Yes [id number] 200mg Take 1 [facility] (CELEBREX) 02-14 [id number] capsule by i ty of 200 mg 00:00: 05:59 mouth in [place] capsule 00 :00 the Medical morning Branch for 30 days. celecoxib 2021-02- Yes [id number] 200mg Take 1 [facility] (CELEBREX) 02-14 [id number] capsule by i ty of 200 mg 00:00: 05:59 mouth in [place] capsule 00 :00 the Medical morning Branch for 30 days. celecoxib 2021-02- Yes [id number] 200mg Take 1 [facility] (CELEBREX) 02-14 [id number] capsule by i ty of 200 mg 00:00: 05:59 mouth in [place] capsule 00 :00 the Medical morning Branch for 30 days. celecoxib 2021-02- Yes [id number] 200mg Take 1 [facility] (CELEBREX) 02-14 [id number] capsule by i ty of 200 mg 00:00: 05:59 mouth in [place] capsule 00 :00 the Medical morning Branch for 30 days. celecoxib 2021-02- Yes [id number] 200mg Take 1 [facility] (CELEBREX) 1-10 12-11 [id number] capsule by i ty of 200 mg 00:00: 05:59 mouth in [place] capsule 00 :00 the Medical morning Branch for 30 days. celecoxib 2021-02- Yes [id number] 200mg Take 1 [facility] (CELEBREX) 02-14 capsule by i ty of 200 mg 00:00: 05:59 mouth in [place] capsule 00 :00 the Medical morning Branch for 30 days. celecoxib 2021-02- No [id number] 200mg Take 1 [facility] (CELEBREX) 02-14 capsule by i ty of 200 mg 00:00: 05:59 mouth in [place] capsule 00 :00 the Medical morning Branch for 30 days. ferrous 2021-02 Yes 325mg Take 325 Unive rs sulfate 325 1-09 mg by ity of mg (65 mg 14:37: mouth 2 [place] iron) EC 43 (two) Medical tablet times [place] daily with meals. gabapentin 2021-02 Yes 400mg Take 400 Un pat 400 mg 1-09 mg by ity of capsule 14:37: mouth 2 [place] 43 (two) Medical times Branch daily. omeprazole 2021-02 Yes 20mg Take 20 mg U nivers 20 mg 1-09 by mouth ity of capsule 14:37: daily. [address] tamsulosin 2021-02 Yes Take by Univ ers 0.4 mg 24 1-09 mouth ity of hr capsule 14:37: daily. [address] glimepiride 2021-02 Yes 1mg Take 1 mg U nivers (AMARYL) 1 -09 by mouth ity o f mg tablet 14:37: daily with [facility] 43 breakfast. Medical Branch amiodarone 2021-02 Yes 200mg Take 200 Un pat 200 mg 1-09 mg by ity of tablet 14:37: mouth [place] 43 daily. Medical Branch carvediloL 2021-02 Yes 25mg Take 25 mg U nivers (COREG) 25 1-09 by mouth 2 ity of mg tablet 14:37: (two) [place] 43 times [facility] daily with Branch meals. DULoxetine 2021-02 Yes 60mg Take 60 mg U nivers 60 mg 1-09 by mouth ity of capsule 14:37: daily. [address] ferrous 2021-02 Yes 325mg Take 325 Unive rs sulfate 325 1-09 mg by ity of mg (65 mg 14:37: mouth 2 [place] iron) EC 43 (two) Medical tablet times Branch daily with meals. gabapentin 2021-02 Yes 400mg Take 400 Un pat 400 mg 1-09 mg by ity of capsule 14:37: mouth 2 [place] [address] (two) Medical times Branch daily. omeprazole 2021-02 Yes 20mg Take 20 mg U nivers 20 mg 1-09 by mouth ity of capsule 14:37: daily. [address] Branch tamsulosin 2021-02 Yes Take by Univ ers 0.4 mg 24 1-09 mouth ity of hr capsule 14:37: daily. [address] Branch glimepiride 2021-02 Yes 1mg Take 1 mg U nivers (AMARYL) 1 1-09 by mouth ity o f mg tablet 14:37: daily with [facility] 43 breakfast. Medical Branch amiodarone 2021-02 Yes 200mg Take 200 Un pat 200 mg 1-09 mg by ity of tablet 14:37: mouth [place] [address] daily. Medical Branch carvediloL 2021-02 Yes 25mg Take 25 mg U nivers (COREG) 25 1-09 by mouth 2 ity of mg tablet 14:37: (two) [place] [address] times [facility] daily with Branch meals. DULoxetine 2021-02 Yes 60mg Take 60 mg U nivers 60 mg 1-09 by mouth ity of capsule 14:37: daily. [address] Branch ferrous 2021-02 Yes 325mg Take 325 Unive rs sulfate 325 1-09 mg by ity of mg (65 mg 14:37: mouth 2 [facility]) EC 43 (two) Medical tablet times Branch daily with meals. gabapentin 2021-02 Yes 400mg Take 400 Un pat 400 mg 1-09 mg by ity of capsule 14:37: mouth 2 [place] [address] (two) Medical times Branch daily. omeprazole 2021-02 Yes 20mg Take 20 mg U nivers 20 mg 1-09 by mouth ity of capsule 14:37: daily. [address] Branch tamsulosin 2021-02 Yes Take by Univ ers 0.4 mg 24 1-09 mouth ity of hr capsule 14:37: daily. [address] Branch glimepiride 2021-02 Yes 1mg Take 1 mg U nivers (AMARYL) 1 1-09 by mouth ity o f mg tablet 14:37: daily with [place] 43 breakfast. Medical Branch amiodarone 2021-02 Yes 200mg Take 200 Un pat 200 mg 1-09 mg by ity of tablet 14:37: mouth [place] 43 daily. Medical Branch carvediloL 2021-02 Yes 25mg Take 25 mg U nivers (COREG) 25 1-09 by mouth 2 ity of mg tablet 14:37: (two) [address] Medical daily with Branch meals. DULoxetine 2021-02 Yes 60mg Take 60 mg U nivers 60 mg 1-09 by mouth ity of capsule 14:37: daily. [place] [address] Medical Branch ferrous 2021-02 Yes 325mg Take 325 Unive rs sulfate 325 1-09 mg by ity of mg (65 mg 14:37: mouth 2 [place] iron) 43 (two) Medical tablet times [place] daily with meals. gabapentin 2021-02 Yes 400mg Take 400 Un pat 400 mg 1-09 mg by ity of capsule 14:37: mouth 2 [place] 43 (two) Medical times Branch daily. omeprazole 2021-02 Yes 20mg Take 20 mg U nivers 20 mg 1-09 by mouth ity of capsule 14:37: daily. [address] Branch tamsulosin 2021-02 Yes Take by Univ ers 0.4 mg 24 1-09 mouth ity of hr capsule 14:37: daily. [address] Branch glimepiride 2021-02 Yes 1mg Take 1 mg U nivers (AMARYL) 1 1-09 by mouth ity o f mg tablet 14:37: daily with [place] 43 breakfast. Medical Branch amiodarone 2021-02 Yes 200mg Take 200 Un pat 200 mg 1-09 mg by ity of tablet 14:37: mouth [place] [address] daily. Medical Branch carvediloL 2021-02 Yes 25mg Take 25 mg U nivers (COREG) 25 1-09 by mouth 2 ity of mg tablet 14:37: (two) [place] [address] times [facility] daily with Branch meals. DULoxetine 2021-02 Yes 60mg Take 60 mg U nivers 60 mg 1-09 by mouth ity of capsule 14:37: daily. [address] ferrous 2021-02 Yes 325mg Take 325 Unive rs sulfate 325 1-09 mg by ity of mg (65 mg 14:37: mouth 2 [place] iron) EC 43 (two) Medical tablet times Branch daily with meals. gabapentin 2021-02 Yes 400mg Take 400 Un pat 400 mg 1-09 mg by ity of capsule 14:37: mouth 2 [place] [address] (two) Medical times Branch daily. omeprazole 2021-02 Yes 20mg Take 20 mg U nivers 20 mg 1-09 by mouth ity of capsule 14:37: daily. [address] Branch tamsulosin 2021-02 Yes Take by Univ ers 0.4 mg 24 1-09 mouth ity of hr capsule 14:37: daily. [address] Branch glimepiride 2021-02 Yes 1mg Take 1 mg U nivers (AMARYL) 1 1-09 by mouth ity o f mg tablet 14:37: daily with [place] 43 breakfast. Medical Branch amiodarone 2021-02 Yes 200mg Take 200 Un pat 200 mg 1-09 mg by ity of tablet 14:37: mouth [place] [address] daily. Medical Branch carvediloL 2021-02 Yes 25mg Take 25 mg U nivers (COREG) 25 1-09 by mouth 2 ity of mg tablet 14:37: (two) [place] [address] times Medical daily with Branch meals. DULoxetine 2021-02 Yes 60mg Take 60 mg U nivers 60 mg 1-09 by mouth ity of capsule 14:37: daily. [place] [address] Medical Branch ferrous 2021-02 Yes 325mg Take 325 Unive rs sulfate 325 1-09 mg by ity of mg (65 mg 14:37: mouth 2 [facility]) EC 43 (two) Medical tablet times Branch daily with meals. gabapentin 2021-02 Yes 400mg Take 400 Un pat 400 mg 1-09 mg by ity of capsule 14:37: mouth 2 [place] [address] (two) Medical times Branch daily. omeprazole 2021-02 Yes 20mg Take 20 mg U nivers 20 mg 1-09 by mouth ity of capsule 14:37: daily. [address] Branch tamsulosin 2021-02 Yes Take by Univ ers 0.4 mg 24 1-09 mouth ity of hr capsule 14:37: daily. [address] Branch glimepiride 2021-02 Yes 1mg Take [...] 2 ity of mg tablet 14:37: (two) [place] [address] times Medical daily with Branch meals. DULoxetine 2021-02 Yes 60mg Take 60 mg U nivers 60 mg 1-09 by mouth ity of capsule 14:37: daily. [place] [address] Medical Branch ferrous 2021-02 Yes 325mg Take 325 Unive rs sulfate 325 1-09 mg by ity of mg (65 mg 14:37: mouth 2 [place] iron) EC 43 (two) Medical tablet times [place] daily with meals. gabapentin 2021-02 Yes 400mg Take 400 Un pat 400 mg 1-09 mg by ity of capsule 14:37: mouth 2 [place] 43 (two) Medical times Branch daily. omeprazole 2021-02 Yes 20mg Take 20 mg U nivers 20 mg 1-09 by mouth ity of capsule 14:37: daily. [address] Branch tamsulosin 2021-02 Yes Take by Univ ers 0.4 mg 24 1-09 mouth ity of hr capsule 14:37: daily. [place] [address] Medical Branch glimepiride 2021-02 Yes 1mg Take [...] 2 ity of mg tablet 14:37: (two) [place] [address] times Medical daily with Branch meals. DULoxetine 2021-02 Yes 60mg Take 60 mg U nivers 60 mg 1-09 by mouth ity of capsule 14:37: daily. [place] [address] Medical Branch ferrous 2021-02 Yes 325mg Take 325 Unive rs sulfate 325 1-09 mg by ity of mg (65 mg 14:37: mouth 2 [place] iron) EC 43 (two) Medical tablet times Branch daily with meals. gabapentin 2021-02 Yes 400mg Take 400 Un pat 400 mg 1-09 mg by ity of capsule 14:37: mouth 2 [place] [address] (two) Medical times Branch daily. omeprazole 2021-02 Yes 20mg Take 20 mg U nivers 20 mg 1-09 by mouth ity of capsule 14:37: daily. [address] Branch tamsulosin 2021-02 Yes Take by Univ ers 0.4 mg 24 1-09 mouth ity of hr capsule 14:37: daily. [address] Branch glimepiride 2021-02 Yes 1mg Take 1 mg U nivers (AMARYL) 1 1-09 by mouth ity o f mg tablet 14:37: daily with [place] 43 breakfast. Medical Branch amiodarone 2021-02 Yes 200mg Take 200 Un pat 200 mg 1-09 mg by ity of tablet 14:37: mouth [place] [address] daily. Medical Branch carvediloL 2021-02 Yes 25mg Take 25 mg U nivers (COREG) 25 1-09 by mouth 2 ity of mg tablet 14:37: (two) [place] [address] times Medical daily with Branch meals. DULoxetine 2021-02 Yes 60mg Take 60 mg U nivers 60 mg 1-09 by mouth ity of capsule 14:37: daily. [place] [address] Medical Branch ferrous 2021-02 Yes 325mg Take 325 Unive rs sulfate 325 1-09 mg by ity of mg (65 mg 14:37: mouth 2 [facility]) EC 43 (two) Medical tablet times Branch daily with meals. gabapentin 2021-02 Yes 400mg Take 400 Un pat 400 mg 1-09 mg by ity of capsule 14:37: mouth 2 [place] [address] (two) Medical times Branch daily. omeprazole 2021-02 Yes 20mg Take 20 mg U nivers 20 mg 1-09 by mouth ity of capsule 14:37: daily. [address] Branch tamsulosin 2021-02 Yes Take by Univ ers 0.4 mg 24 1-09 mouth ity of hr capsule 14:37: daily. [address] Branch glimepiride 2021-02 Yes 1mg Take 1 mg U nivers (AMARYL) 1 1-09 by mouth ity o f mg tablet 14:37: daily with [place] 43 breakfast. Medical Branch amiodarone 2021-02 Yes 200mg Take 200 Un pat 200 mg 1-09 mg by ity of tablet 14:37: mouth [place] [address] daily. Medical Branch carvediloL 2021-02 Yes 25mg Take 25 mg U nivers (COREG) 25 1-09 by mouth 2 ity of mg tablet 14:37: (two) [place] [address] times Medical daily with Branch meals. DULoxetine 2021-02 Yes 60mg Take 60 mg U nivers 60 mg 1-09 by mouth ity of capsule 14:37: daily. [place] [address] Medical Branch ferrous 2021-02 Yes 325mg Take 325 Unive rs sulfate 325 1-09 mg by ity of mg (65 mg 14:37: mouth 2 [facility]) 43 (two) Medical tablet times [place] daily with meals. gabapentin 2021-02 Yes 400mg Take 400 Un pat 400 mg 1-09 mg by ity of capsule 14:37: mouth 2 [place] 43 (two) Medical times Branch daily. omeprazole 2021-02 Yes 20mg Take 20 mg U nivers 20 mg 1-09 by mouth ity of capsule 14:37: daily. [address] tamsulosin 2021-02 Yes Take by Univ ers 0.4 mg 24 1-09 mouth ity of hr capsule 14:37: daily. [address] SITagliptin 2021-02 Yes 50mg Take 50 mg Univers (JANUVIA) 1-09 by mouth ity of 50 mg 14:37: daily. [address] glimepiride 2021-02 Yes 1mg Take 1 mg U nivers (AMARYL) 1 1-09 by mouth ity o f mg tablet 14:37: daily with [place] 43 breakfast. Medical Branch amiodarone 2021-02 Yes 200mg Take 200 Un pat 200 mg 1-09 mg by ity of tablet 14:37: mouth [place] [address] daily. Medical Branch carvediloL 2021-02 Yes 25mg Take 25 mg U nivers (COREG) 25 1-09 by mouth 2 ity of mg tablet 14:37: (two) [address] daily with Branch meals. DULoxetine 2021-02 Yes 60mg Take 60 mg U nivers 60 mg 1-09 by mouth ity of capsule 14:37: daily. [place] [address] Medical Branch ferrous 2021-02 Yes 325mg Take 325 Unive rs sulfate 325 1-09 mg by ity of mg (65 mg 14:37: mouth 2 [place] iron) EC 43 (two) Medical tablet times Branch daily with meals. gabapentin 2021-02 Yes 400mg Take 400 Un pat 400 mg 1-09 mg by ity of capsule 14:37: mouth 2 [place] [address] (two) Medical times Branch daily. omeprazole 2021-02 Yes 20mg Take 20 mg U nivers 20 mg 1-09 by mouth ity of capsule 14:37: daily. [place] [address] Medical Branch tamsulosin 2021-02 Yes Take by Univ ers 0.4 mg 24 -09 mouth ity of hr capsule 14:37: daily. [address] Branch SITagliptin 2021-02 Yes 50mg Take 50 mg Univers (JANUVIA) -09 by mouth ity of 50 mg 14:37: daily. [address] glimepiride 2021-02 Yes 1mg Take 1 mg U nivers (AMARYL) 1 09 by mouth ity o f mg tablet 14:37: daily with [place] 43 breakfast. Medical Branch amiodarone 2021-02 Yes 200mg Take 200 Un pat 200 mg 1-09 mg by ity of tablet 14:37: mouth [place] [address] daily. Medical Branch carvediloL 2021-02 Yes 25mg Take 25 mg U nivers (COREG) 25 -09 by mouth 2 ity of mg tablet 14:37: (two) [address] daily with Branch meals. DULoxetine 2021-02 Yes 60mg Take 60 mg U nivers 60 mg -09 by mouth ity of capsule 14:37: daily. [place] [address] Medical [place] ferrous 2021-02 Yes 325mg Take 325 Unive rs sulfate 325 1-09 mg by ity of mg (65 mg 14:37: mouth 2 [place] iron) EC 43 (two) Medical tablet times [place] daily with meals. gabapentin 2021-02 Yes 400mg Take 400 Un pat 400 mg 1-09 mg by ity of capsule 14:37: mouth 2 [place] [address] (two) Medical times Branch daily. omeprazole 2021-02 Yes 20mg Take 20 mg U nivers 20 mg 1-09 by mouth ity of capsule 14:37: daily. [address] tamsulosin 2021-02 Yes Take by Univ ers 0.4 mg 24 1-09 mouth ity of hr capsule 14:37: daily. [place] [address] Medical [place] SITagliptin 2021-02 Yes 50mg Take 50 mg Univers (JANUVIA) 1-09 by mouth ity of 50 mg 14:37: daily. [place] tablet Medical [place] glimepiride 2021-02 Yes 1mg Take 1 mg U nivers (AMARYL) 1 -09 by mouth ity o f mg tablet 14:37: daily with [place] 43 breakfast. Medical Branch amiodarone 2021-02 Yes 200mg Take 200 Un pat 200 mg 1-09 mg by ity of tablet 14:37: mouth [place] [address] daily. Medical Branch carvediloL 2021-02 Yes 25mg Take 25 mg U nivers (COREG) 25 -09 by mouth 2 ity of mg tablet 14:37: (two) [address] daily with Branch meals. DULoxetine 2021-02 Yes 60mg Take 60 mg U nivers 60 mg 09 by mouth ity of capsule 14:37: daily. [address] Branch ferrous 2021-02 Yes 325mg Take 325 Unive rs sulfate 325 1-09 mg by ity of mg (65 mg 14:37: mouth 2 [facility]) 43 (two) Medical tablet times [place] daily with meals. gabapentin 2021-02 Yes 400mg Take 400 Un pat 400 mg 1-09 mg by ity of capsule 14:37: mouth 2 [place] 43 (two) Medical times Branch daily. omeprazole 2021-02 Yes 20mg Take 20 mg U nivers 20 mg 09 by mouth ity of capsule 14:37: daily. [address] tamsulosin 2021-02 Yes Take by [facility] ers 0.4 mg 24 -09 mouth ity of hr capsule 14:37: daily. [address] SITagliptin 2021-02 Yes 50mg Take 50 mg Univers (JANUVIA) 1-09 by mouth ity of 50 mg 14:37: daily. [place] [address] Medical [place] glimepiride 2021-02 Yes 1mg Take 1 mg U nivers (AMARYL) 1 -09 by mouth ity o f mg tablet 14:37: daily with [place] 43 breakfast. Medical Branch amiodarone 2022-1 Yes 200mg Take 200 Un pat 200 mg 1-09 mg by ity of tablet 14:37: mouth [place] 43 daily. Medical Branch carvediloL 2021-02 Yes 25mg Take 25 mg U nivers (COREG) 25 1-09 by mouth 2 ity of mg tablet 14:37: (two) [place] 43 times Medical daily with Branch meals. DULoxetine 2021-02 Yes 60mg Take 60 mg U nivers 60 mg 1-09 by mouth ity of capsule 14:37: daily. [place] [address] Medical Branch ferrous 2021-02 Yes 325mg Take 325 Unive rs sulfate 325 1-09 mg by ity of mg (65 mg 14:37: mouth 2 [place] iron) 43 (two) Medical tablet times [place] daily with meals. gabapentin 2021-02 Yes 400mg Take 400 Un pat 400 mg 1-09 mg by ity of capsule 14:37: mouth 2 [place] 43 (two) Medical times Branch daily. omeprazole 2021-02 Yes 20mg Take 20 mg U nivers 20 mg 1-09 by mouth ity of capsule 14:37: daily. [address] Branch tamsulosin 2021-02 Yes Take by Univ ers 0.4 mg 24 1-09 mouth ity of hr capsule 14:37: daily. [address] Branch SITagliptin 2021-02 Yes 50mg Take 50 mg Univers (JANUVIA) 1-09 by mouth ity of 50 mg 14:37: daily. [address] Branch glimepiride 2021-02 Yes 1mg Take 1 mg U nivers (AMARYL) 1 1-09 by mouth ity o f mg tablet 14:37: daily with [facility] 43 breakfast. Medical Branch amiodarone 2021-02 Yes 200mg Take 200 Un pat 200 mg 1-09 mg by ity of tablet 14:37: mouth [place] 43 daily. Medical Branch carvediloL 2021-02 Yes 25mg Take 25 mg U nivers (COREG) 25 1-09 by mouth 2 ity of mg tablet 14:37: (two) [place] [address] times Medical daily with Branch meals. DULoxetine 2021-02 Yes 60mg Take 60 mg U nivers 60 mg 1-09 by mouth ity of capsule 14:37: daily. [address] ferrous 2021-02 Yes 325mg Take 325 Unive rs sulfate 325 1-09 mg by ity of mg (65 mg 14:37: mouth 2 [place] iron) EC 43 (two) Medical tablet times Branch daily with meals. gabapentin 2021-02 Yes 400mg Take 400 Un pat 400 mg 1-09 mg by ity of capsule 14:37: mouth 2 [place] 43 (two) Medical times Branch daily. omeprazole 2021-02 Yes 20mg Take 20 mg U nivers 20 mg 1-09 by mouth ity of capsule 14:37: daily. [address] Branch tamsulosin 2021-02 Yes Take by Univ ers 0.4 mg 24 1-09 mouth ity of hr capsule 14:37: daily. [place] [address] Medical Branch SITagliptin 2021-02 Yes 50mg Take 50 mg Univers (JANUVIA) 1-09 by mouth ity of 50 mg 14:37: daily. [place] [address] Medical Branch glimepiride 2021-02 Yes 1mg Take 1 mg U nivers (AMARYL) 1 1-09 by mouth ity o f mg tablet 14:37: daily with [place] 43 breakfast. Medical Branch amiodarone 2021-02 Yes 200mg Take 200 Un pat 200 mg 1-09 mg by ity of tablet 14:37: mouth [place] [address] daily. Medical Branch carvediloL 2021-02 Yes 25mg Take 25 mg U nivers (COREG) 25 1-09 by mouth 2 ity of mg tablet 14:37: (two) [place] [address] times Medical daily with Branch meals. DULoxetine 2021-02 Yes 60mg Take 60 mg U nivers 60 mg 1-09 by mouth ity of capsule 14:37: daily. [place] [place] [address] [facility] Branch ferrous 2021-02 Yes 325mg Take 325 Unive rs sulfate 325 1-09 mg by ity of mg (65 mg 14:37: mouth 2 [facility]) [place] 43 (two) Medical tablet times Branch daily with meals. gabapentin 2021-02 Yes 400mg Take 400 Un pat 400 mg 1-09 mg by ity of capsule 14:37: mouth 2 [place] 43 (two) Medical times Branch daily. omeprazole 2021-02 Yes 20mg Take 20 mg U nivers 20 mg 1-09 by mouth ity of capsule 14:37: daily. [address] tamsulosin 2021-02 Yes Take by Univ ers 0.4 mg 24 1-09 mouth ity of hr capsule 14:37: daily. [place] [address] Medical Branch SITagliptin 2021-02 Yes 50mg Take 50 mg Univers (JANUVIA) 1-09 by mouth ity of 50 mg 14:37: daily. [place] tablet Medical Branch glimepiride 2021-02 Yes 1mg Take 1 mg U nivers (AMARYL) 1 1-09 by mouth ity o f mg tablet 14:37: daily with [place] 43 breakfast. Medical Branch amiodarone 2021-02 Yes 200mg Take 200 Un pat 200 mg 1-09 mg by ity of tablet 14:37: mouth [place] 43 daily. Medical Branch carvediloL 2021-02 Yes 25mg Take 25 mg U nivers (COREG) 25 1-09 by mouth 2 ity of mg tablet 14:37: (two) [place] [address] times Medical daily with Branch meals. DULoxetine 2021-02 Yes 60mg Take 60 mg U nivers 60 mg 1-09 by mouth ity of capsule 14:37: daily. [address] Branch ferrous 2021-02 Yes 325mg Take 325 Unive rs sulfate 325 1-09 mg by ity of mg (65 mg 14:37: mouth 2 [place] iron) 43 (two) Medical tablet times Branch daily with meals. gabapentin 2021-02 Yes 400mg Take 400 Un pat 400 mg 1-09 mg by ity of capsule 14:37: mouth 2 [place] 43 (two) Medical times Branch daily. omeprazole 2021-02 Yes 20mg Take 20 mg U nivers 20 mg 1-09 by mouth ity of capsule 14:37: daily. [address] Branch tamsulosin 2021-02 Yes Take by Univ ers 0.4 mg 24 1-09 mouth ity of hr capsule 14:37: daily. [address] SITagliptin 2021-02 Yes 50mg Take 50 mg Univers (JANUVIA) 1-09 by mouth ity of 50 mg 14:37: daily. [place] tablet Medical Branch glimepiride 2021-02 Yes 1mg Take 1 mg U nivers (AMARYL) 1 1-09 by mouth ity o f mg tablet 14:37: daily with [place] 43 breakfast. Medical Branch amiodarone 2021-02 Yes 200mg Take 200 Un pat 200 mg 1-09 mg by ity of tablet 14:37: mouth [place] 43 daily. Medical Branch carvediloL 2021-02 Yes 25mg Take 25 mg U nivers (COREG) 25 1-09 by mouth 2 ity of mg tablet 14:37: (two) [address] daily with Branch meals. DULoxetine 2021-02 Yes 60mg Take 60 mg U nivers 60 mg 1-09 by mouth ity of capsule 14:37: daily. [place] [address] Medical Branch ferrous 2021-02 Yes 325mg Take 325 Unive rs sulfate 325 1-09 mg by ity of mg (65 mg 14:37: mouth 2 [place] iron) EC 43 (two) Medical tablet times [place] daily with meals. gabapentin 2021-02 Yes 400mg Take 400 Un pat 400 mg 1-09 mg by ity of capsule 14:37: mouth 2 [place] 43 (two) Medical times [place] daily. omeprazole 2021-02 Yes 20mg Take 20 mg U nivers 20 mg 1-09 by mouth ity of capsule 14:37: daily. [address] tamsulosin 2021-02 Yes Take by Univ ers 0.4 mg 24 1-09 mouth ity of hr capsule 14:37: daily. [place] [address] Medical Branch SITagliptin 2021-02 Yes 50mg Take 50 mg Univers (JANUVIA) 1-09 by mouth ity of 50 mg 14:37: daily. [place] [address] Medical Branch glimepiride 2021-02 Yes 1mg Take 1 mg U nivers (AMARYL) 1 1-09 by mouth ity o f mg tablet 14:37: daily with [place] 43 breakfast. [facility] Branch amiodarone 2021-02 Yes 200mg Take 200 Un pat 200 mg 1-09 mg by ity of tablet 14:37: mouth [place] [address] daily. Medical Branch carvediloL 2021-02 Yes 25mg Take 25 mg U nivers (COREG) 25 1-09 by mouth 2 ity of mg tablet 14:37: (two) [address] daily with Branch meals. DULoxetine 2021-02 Yes 60mg Take 60 mg U nivers 60 mg 1-09 by mouth ity of capsule 14:37: daily. [address] ferrous 2021-02 Yes 325mg Take 325 Unive rs sulfate 325 1-09 mg by ity of mg (65 mg 14:37: mouth 2 [place] iron) EC 43 (two) Medical tablet times Branch daily with meals. gabapentin 2021-02 Yes 400mg Take 400 Un pat 400 mg 1-09 mg by ity of capsule 14:37: mouth 2 [place] [address] (two) Medical times Branch daily. omeprazole 2021-02 Yes 20mg Take 20 mg U nivers 20 mg -09 by mouth ity of capsule 14:37: daily. [place] [address] Medical Branch tamsulosin 2021-02 Yes Take by Univ ers 0.4 mg 24 -09 mouth ity of hr capsule 14:37: daily. [place] [address] Medical Branch SITagliptin 2021-02 Yes 50mg Take 50 mg Univers (JANUVIA) 09 by mouth ity of 50 mg 14:37: daily. [place] [address] Medical Branch glimepiride 2021-02 Yes 1mg Take 1 mg U nivers (AMARYL) 1 09 by mouth ity o f mg tablet 14:37: daily [place] 43 breakfast. Medical Branch amiodarone 2021-02 Yes 200mg Take 200 Un pat 200 mg 1-09 mg by ity of tablet 14:37: mouth [place] [address] daily. Medical Branch carvediloL 2021-02 Yes 25mg Take 25 mg U nivers (COREG) 25 09 by mouth 2 ity of mg tablet 14:37: (two) [address] daily with Branch meals. DULoxetine 2021-02 Yes 60mg Take 60 mg U nivers 60 mg -09 by mouth ity of capsule 14:37: daily. [place] [address] Medical [place] traZODone 2021-02- 100mg Take 100 Un pta 100 mg 1-04 11-04 mg by ity of tablet 12:51: 00:00 mouth at [place] 55 :00 bedtime. Medical Branch traZODone 2021-02 Yes [id number] 100mg Take 1 Univers 100 mg 1-04 tablet by ity of tablet 00:00: mouth at [place] 00 bedtime. Medical Branch traZODone 2021-02 Yes [id number] 100mg Take 1 Univers 100 mg 1-04 tablet by ity of tablet 00:00: mouth at [place] 00 bedtime. Medical Branch traZODone 2021-02 Yes [id number] 100mg Take 1 Univers 100 mg 1-04 tablet by ity of tablet 00:00: mouth at [place] 00 bedtime. Medical Branch traZODone 2021-02 Yes [id number] 100mg Take 1 Univers 100 mg 1-04 tablet by ity of tablet 00:00: mouth at [place] 00 bedtime. Medical Branch traZODone 2021-02 Yes [id number] 100mg Take 1 [facility] 100 mg 1-04 tablet by ity of tablet 00:00: mouth at [place] 00 bedtime. Medical Branch traZODone 2021-02 Yes [id number] 100mg Take 1 [facility] 100 mg 1-04 tablet by ity of tablet 00:00: mouth at [place] 00 bedtime. Medical Branch traZODone 2021-02 Yes [id number] 100mg Take 1 Univers 100 mg 1-04 tablet by ity of tablet 00:00: mouth at [place] 00 bedtime. Medical Branch traZODone 2021-02 Yes [id number] 100mg Take 1 Univers 100 mg 1-04 tablet by ity of tablet 00:00: mouth at [place] [address] bedtime. Medical Branch traZODone 2021-02 Yes [id number] 100mg Take 1 Univers 100 mg 1-04 tablet by ity of tablet 00:00: mouth at [place] [address] bedtime. Medical Branch traZODone 2021-02 Yes [id number] 100mg Take 1 Univers 100 mg 1-04 tablet by ity of tablet 00:00: mouth at [place] [address] bedtime. Medical Branch traZODone 2021-02 Yes [id number] 100mg Take 1 Univers 100 mg 1-04 tablet by ity of tablet 00:00: mouth at [place] [address] bedtime. Medical Branch traZODone 2021-02- No [id number] 100mg Take 1 Univers 100 mg 1-04 11-21 tablet by ity of tablet 00:00: 00:00 mouth at [place] 00 :00 bedtime. Medical Branch traZODone 2021-02- No [id number] 100mg Take 1 Univers 100 mg 1-04 11-21 tablet by ity of tablet 00:00: 00:00 mouth at [place] 00 :00 bedtime. Medical Branch traZODone 2021-02- No [id number] 100mg Take 1 Univers 100 mg 1-04 11-21 tablet by ity of tablet 00:00: 00:00 mouth at [place] 00 :00 bedtime. Medical Branch traZODone 2021-02- No [id number] 100mg Take 1 Univers 100 mg 02-08- tablet by ity of tablet 00:00: 00:00 mouth at [place] 00 :00 bedtime. Medical Branch traZODone 2021-02 Yes [id number] TAKE 2 TO [facility] ([facility] [facility] MG 00:00: [facility] NIGHTLY l NEEDED FOR SLEEP traZODone 2021-02 Yes [id number] TAKE 2 TO [facility] ([facility]) 0-[address] 50 MG 00:00: [facility]OUTH [facility] tablet 00 NIGHTLY l NEEDED FOR SLEEP levothyroxi 2021-02 Yes [id number] 25ug Take 1 Univers ne 25 mcg 0-24 tablet by ity o f tablet 00:00: mouth [place] 00 every Medical morning. Branch levothyroxi 2021-02 Yes [id number] 25ug Take 1 Univers ne 25 mcg 0-24 tablet by ity o f tablet 00:00: mouth [place] 00 every Medical morning. Branch levothyroxi 2021-02 Yes [id number] 25ug Take 1 Univers ne 25 mcg 0-24 tablet by ity o f tablet 00:00: mouth [place] 00 every Medical morning. Branch levothyroxi 2021-02 Yes [id number] 25ug Take 1 Univers ne 25 mcg 0-24 tablet by ity o f tablet 00:00: mouth [place] 00 every Medical morning. Branch levothyroxi 2021-02 Yes [id number] 25ug Take 1 Univers ne 25 mcg 0-24 tablet by ity o f tablet 00:00: mouth [place] 00 every Medical morning. Branch levothyroxi 2021-02 Yes [id number] 25ug Take 1 Univers ne 25 mcg 0-24 tablet by ity o f tablet 00:00: mouth [place] 00 every Medical morning. Branch levothyroxi 2021-02 Yes [id number] 25ug Take 1 Univers ne 25 mcg 0-24 tablet by ity o f tablet 00:00: mouth [place] 00 every Medical morning. Branch levothyroxi 2021-02 Yes [id number] 25ug Take 1 Univers ne 25 mcg 0-24 tablet by ity o f tablet 00:00: mouth [place] 00 every Medical morning. Branch levothyroxi 2021-02 Yes [id number] 25ug Take 1 Univers ne 25 mcg 0-24 tablet by ity o f tablet 00:00: mouth [place] 00 every Medical morning. Branch levothyroxi 2021-02 Yes [id number] 25ug Take 1 Univers ne 25 mcg 0-24 tablet by ity o f tablet 00:00: mouth [place] 00 every Medical morning. Branch levothyroxi 2021-02 Yes [id number] 25ug Take 1 Univers ne 25 mcg 0-24 tablet by ity o f tablet 00:00: mouth [place] 00 every Medical morning. Branch levothyroxi 2021-02 Yes [id number] 25ug Take 1 Univers ne 25 mcg 0-24 tablet by ity o f tablet 00:00: mouth [place] 00 every Medical morning. Branch levothyroxi 2021-02 Yes [id number] 25ug Take 1 Univers ne 25 mcg 0-24 tablet by ity o f tablet 00:00: mouth [place] 00 every Medical morning. Branch levothyroxi 2021-02 Yes [id number] 25ug Take 1 Univers ne 25 mcg 0-24 tablet by ity o f tablet 00:00: mouth [place] 00 every Medical morning. Branch levothyroxi 2021-02 Yes [id number] 25ug Take 1 Univers ne 25 mcg 0-24 tablet by ity o f tablet 00:00: mouth [place] 00 every Medical morning. Branch levothyroxi 2021-02 Yes [id number] 25ug Take 1 Univers ne 25 mcg 0-24 tablet by ity o f tablet 00:00: mouth [place] 00 every Medical morning. Branch levothyroxi 2021-02 Yes [id number] 25ug Take 1 Univers ne 25 mcg 0-24 tablet by ity o f tablet 00:00: mouth [place] 00 every Medical morning. Branch levothyroxi 2021-02 Yes [id number] 25ug Take 1 Univers ne 25 mcg 0-24 tablet by ity o f tablet 00:00: mouth [place] 00 every Medical morning. Branch levothyroxi 2021-02 Yes [id number] 25ug Take 1 Univers ne 25 mcg 0-24 tablet by ity o f tablet 00:00: mouth [place] 00 every Medical morning. Branch levothyroxi 2021-02 Yes [id number] 25ug Take 1 Univers ne 25 mcg 0-24 tablet by ity o f tablet 00:00: mouth [place] 00 every Medical morning. Branch levothyroxi 2021-02 Yes [id number] 25ug Take 1 Univers ne 25 mcg 0-24 tablet by ity o f tablet 00:00: mouth [place] 00 every Medical morning. Branch levothyroxi 2021-02 Yes [id number] 25ug Take 1 Univers ne 25 mcg 0-24 tablet by ity o f tablet 00:00: mouth [place] 00 every Medical morning. Branch levothyroxi 2021-02 Yes [id number] 25ug Take 1 Univers ne 25 mcg 0-24 tablet by ity o f tablet 00:00: mouth [place] 00 every Medical morning. Branch levothyroxi 2021-02 Yes [id number] 25ug Take 1 Univers ne 25 mcg 0-24 tablet by ity o f tablet 00:00: mouth [place] 00 every Medical morning. Branch levothyroxi 2021-02 Yes [id number] 25ug Take 1 Univers ne 25 mcg 0-24 tablet by ity o f tablet 00:00: mouth [place] 00 every Medical morning. Branch levothyroxi 2021-02 Yes [id number] 25ug Take 1 Univers ne 25 mcg 0-24 tablet by ity o f tablet 00:00: mouth [place] 00 every Medical morning. Branch levothyroxi 2021-02 Yes [id number] 25ug Take 1 Univers ne 25 mcg 0-24 tablet by ity o f tablet 00:00: mouth [place] 00 every Medical morning. Branch levothyroxi 2021-02 Yes [id number] 25ug Take 1 Univers ne 25 mcg 0-24 tablet by ity o f tablet 00:00: mouth [place] 00 every Medical morning. Branch levothyroxi 2021-02 Yes [id number] 25ug Take 1 Univers ne 25 mcg 0-24 tablet by ity o f tablet 00:00: mouth [place] 00 every Medical morning. Branch levothyroxi 2021-02 Yes [id number] 25ug Take 1 Univers ne 25 mcg 0-24 tablet by ity o f tablet 00:00: mouth [place] 00 every Medical morning. Branch levothyroxi 2021-02 Yes [id number] 25ug Take 1 Univers ne 25 mcg 0-24 tablet by ity o f tablet 00:00: mouth [place] 00 every Medical morning. Branch levothyroxi 2021-02 Yes [id number] 25ug Take 1 Univers ne 25 mcg 0-24 tablet by ity o f tablet 00:00: mouth [place] 00 every Medical morning. Branch levothyroxi 2021-02 Yes [id number] 25ug Take 1 Univers ne 25 mcg 0-24 tablet by ity o f tablet 00:00: mouth [place] 00 every Medical morning. Branch levothyroxi 2021-02 Yes [id number] 25ug Take 1 Univers ne 25 mcg 0-24 tablet by ity o f tablet 00:00: mouth [place] 00 every Medical morning. Branch levothyroxi 2021-02 Yes [id number] 25ug Take 1 Univers ne 25 mcg 0-24 tablet by ity o f tablet 00:00: mouth [place] 00 every Medical morning. Branch levothyroxi 2021-02 Yes [id number] 25ug Take 1 Univers ne 25 mcg 0-24 tablet by ity o f tablet 00:00: mouth [place] 00 every Medical morning. Branch levothyroxi 2021-02 Yes [id number] 25ug Take 1 Univers ne 25 mcg 0-24 tablet by ity o f tablet 00:00: mouth [place] 00 every Medical morning. Branch levothyroxi 2021-02 Yes [id number] 25ug Take 1 Univers ne 25 mcg 0-24 tablet by ity o f tablet 00:00: mouth [place] 00 every Medical morning. Branch levothyroxi 2021-02 Yes [id number] 25ug Take 1 Univers ne 25 mcg 0-24 tablet by ity o f tablet 00:00: mouth [place] 00 every Medical morning. Branch levothyroxi 2021-02 Yes [id number] 25ug Take 1 Univers ne 25 mcg 0-24 tablet by ity o f tablet 00:00: mouth [place] 00 every Medical morning. [place] HYDROcodone 2021-02- Yes [id number] 1{tbl} Take 1 U nivers -acetaminop 0-24 11- tablet by it y of hen (NORCO) [...] 1{tbl} Take 1 U nivers -acetaminop 0-24 11- tablet by it y of hen (NORCO) 00:00: 04:59 mouth [place] 5-325 [place] 00 :00 every 6 Medical tablet (six) Branch hours as needed for Pain (scale 4-6) for up to 7 days. Indication s: chronic pain docusate 2021- No [id number] 100mg Take 1 Univers 100 mg -11-06 capsule by ity of capsule 00:00: 04:59 mouth in [place] 00 :00 the Medical morning Branch for 30 days. sennosides 2021- No [id number] 8.6mg Take 1 Univers 8.6 mg -11-06 tablet by ity of tablet 00:00: 04:59 mouth in [place] 00 :00 the Medical morning Branch for 30 days. levothyroxi 2021- No [id number] 50ug Take 1 Univers ne 50 mcg 10-06 tablet by ity of tablet 00:00: 04:59 mouth [place] 00 :00 every Medical morning Branch for 30 days. docusate 2021- No [id number] 100mg Take 1 Univers 100 mg -11-06 capsule by ity of capsule 00:00: 04:59 mouth in [place] 00 :00 the Medical morning Branch for 30 days. sennosides 2021- No [id number] 8.6mg Take 1 Univers 8.6 mg 10-06 tablet by ity of tablet 00:00: 04:59 mouth in [place] 00 :00 the Medical morning Branch for 30 days. levothyroxi 2021- No [id number] 50ug Take 1 Univers ne 50 mcg -11-06 tablet by ity of tablet 00:00: 04:59 mouth [place] 00 :00 every Medical morning Branch for 30 days. docusate 2021- No [id number] 100mg Take 1 Univers 100 mg -11-06 capsule by ity of capsule 00:00: 04:59 mouth in [place] 00 :00 the Medical morning Branch for 30 days. sennosides 2021- No [id number] 8.6mg Take 1 Univers 8.6 mg -02 14- tablet by ity of tablet 00:00: 04:59 mouth in [place] 00 :00 the Medical morning Branch for 30 days. levothyroxi 2021- No [id number] 50ug Take 1 Univers ne 50 mcg -11-06 tablet by ity of tablet 00:00: 04:59 mouth [place] 00 :00 every Medical morning Branch for 30 days. docusate 2021- No [id number] 100mg Take 1 Univers 100 mg -02 14- capsule by ity of capsule 00:00: 04:59 mouth in [place] 00 :00 the Medical morning Branch for 30 days. sennosides 2021- No [id number] 8.6mg Take 1 Univers 8.6 mg -11-06 tablet by ity of tablet 00:00: 04:59 mouth in [place] 00 :00 the Medical morning Branch for 30 days. levothyroxi 2021- No [id number] 50ug Take 1 Univers ne 50 mcg 10-06 tablet by ity of tablet 00:00: 04:59 mouth [place] 00 :00 every Medical morning Branch for 30 days. docusate 2021- No [id number] 100mg Take 1 Univers 100 mg 10-06 capsule by ity of capsule 00:00: 04:59 mouth in [place] 00 :00 the Medical morning Branch for 30 days. sennosides 2021- No [id number] 8.6mg Take 1 Univers 8.6 mg 10-06 tablet by ity of tablet 00:00: 04:59 mouth in [place] 00 :00 the Medical morning Branch for 30 days. levothyroxi 2021-2021- No [id number] 50ug Take 1 Univers ne 50 mcg -11-06 tablet by ity of tablet 00:00: 04:59 mouth [place] 00 :00 every Medical morning Branch for 30 days. docusate 2021-2021- No [id number] 100mg Take 1 Univers 100 mg -11-06 capsule by ity of capsule 00:00: 04:59 mouth in [place] 00 :00 the Medical morning Branch for 30 days. sennosides 2021- No [id number] 8.6mg Take 1 Univers 8.6 mg 10-06 tablet by ity of tablet 00:00: 04:59 mouth in [place] 00 :00 the Medical morning Branch for 30 days. levothyroxi 2- No [id number] 50ug Take 1 Univers ne 50 mcg 10-06 tablet by ity of tablet 00:00: 04:59 mouth [place] 00 :00 every Medical morning Branch for 30 days. glimepiride 0 Yes 1mg Take 1 mg U nivers (AMARYL) 1 8-31 by mouth ity o f mg tablet 18:35: daily with [facility] 55 breakfast. Medical Branch amiodarone 0 Yes 200mg Take 200 Un pat 200 mg 8-31 mg by ity of tablet 18:35: mouth [place] [address] daily. Medical Branch carvediloL 0 Yes 25mg Take 25 mg U nivers (COREG) 25 8-31 by mouth 2 ity of mg tablet 18:35: (two) [place] [address] times [facility] daily with Branch meals. DULoxetine Yes 60mg Take 60 mg U nivers 60 mg 8-31 by mouth ity of capsule 18:35: daily. [place] [address] Medical Branch ferrous 0 Yes 325mg Take 325 Unive rs sulfate 325 8-31 mg by ity of mg (65 mg 18:35: mouth 2 [place] iron) EC 55 (two) Medical tablet times Branch daily with meals. gabapentin 0 Yes 400mg Take 400 Un pat 400 mg 8-31 mg by ity of capsule 18:35: mouth 2 [place] 55 (two) Medical times Branch daily. omeprazole 0 Yes 20mg Take 20 mg U nivers 20 mg 8-31 by mouth ity of capsule 18:35: daily. [place] [address] Medical Branch tamsulosin 2021-0 Yes Take by Univ ers 0.4 mg 24 8-31 mouth ity of hr capsule 18:35: daily. [place] [address] Medical Branch traZODone 2021-0 Yes 100mg Take 100 Uni vers 100 mg 8-31 mg by ity of tablet 18:35: mouth at [place] [address] bedtime. Medical Branch SITagliptin 2022-0 Yes 50mg Take 50 mg Univers (JANUVIA) 8-31 by mouth ity of 50 mg 18:35: daily. [place] tablet 55 Medical Branch glimepiride 0 Yes [...] 2 ity of mg tablet 18:35: (two) [place] [address] times Medical daily with Branch meals. DULoxetine 0 Yes 60mg Take 60 mg U nivers 60 mg 8-31 by mouth ity of capsule 18:35: daily. [place] [address] Medical Branch ferrous 0 Yes 325mg Take 325 Unive rs sulfate 325 8-31 mg by ity of mg (65 mg 18:35: mouth 2 [place] iron) EC 55 (two) Medical tablet times Branch daily with meals. gabapentin 0 Yes 400mg Take 400 Un pat 400 mg 8-31 mg by ity of capsule 18:35: mouth 2 [place] 55 (two) Medical times Branch daily. omeprazole 0 Yes 20mg Take 20 mg U nivers 20 mg 8-31 by mouth ity of capsule 18:35: daily. [place] [address] Medical Branch tamsulosin 0 Yes Take by Univ ers 0.4 mg 24 8-31 mouth ity of hr capsule 18:35: daily. [place] [address] Medical Branch traZODone 0 Yes 100mg Take 100 Uni vers 100 mg 8-31 mg by ity of tablet 18:35: mouth at [place] [address] bedtime. Medical Branch SITagliptin 0 Yes 50mg Take 50 mg Univers (JANUVIA) 8-31 by mouth ity of 50 mg 18:35: daily. [place] tablet 55 Medical Branch glimepiride 0 Yes 1mg Take 1 mg U nivers (AMARYL) 1 8-31 by mouth ity o f mg tablet 18:35: daily with [place] 55 breakfast. Medical Branch amiodarone 0 Yes 200mg Take 200 Un pat 200 mg 8-31 mg by ity of tablet 18:35: mouth [place] [address] daily. Medical Branch carvediloL 0 Yes 25mg Take 25 mg U nivers (COREG) 25 8-31 by mouth 2 ity of mg tablet 18:35: (two) [place] [address] times Medical daily with Branch meals. DULoxetine 0 Yes 60mg Take 60 mg U nivers 60 mg 8-31 by mouth ity of capsule 18:35: daily. [place] [address] Medical Branch ferrous 0 Yes 325mg Take 325 Unive rs sulfate 325 8-31 mg by ity of mg (65 mg 18:35: mouth 2 [place] iron) 55 (two) Medical tablet times [place] daily with meals. gabapentin 0 Yes 400mg Take 400 Un pat 400 mg 8-31 mg by ity of capsule 18:35: mouth 2 [place] 55 (two) Medical times Branch daily. omeprazole 0 Yes 20mg Take 20 mg U nivers 20 mg 8-31 by mouth ity of capsule 18:35: daily. [place] [address] Medical Branch tamsulosin 0 Yes Take by Univ ers 0.4 mg 24 8-31 mouth ity of hr capsule 18:35: daily. [place] [address] Medical Branch traZODone 0 Yes 100mg Take 100 Uni vers 100 mg 8-31 mg by ity of tablet 18:35: mouth at [place] [address] bedtime. Medical Branch SITagliptin 0 Yes 50mg Take 50 mg Univers (JANUVIA) 8-31 by mouth ity of 50 mg 18:35: daily. [place] tablet Medical Branch glimepiride 0 Yes 1mg Take 1 mg U nivers (AMARYL) 1 8-31 by mouth ity o f mg tablet 18:35: daily with [facility] 55 breakfast. Medical Branch amiodarone 0 Yes 200mg Take 200 Un pat 200 mg 8-31 mg by ity of tablet 18:35: mouth [place] [address] daily. Medical Branch carvediloL 0 Yes 25mg Take 25 mg U nivers (COREG) 25 8-31 by mouth 2 ity of mg tablet 18:35: (two) [place] [address] times Medical daily with Branch meals. DULoxetine 0 Yes 60mg Take 60 mg U nivers 60 mg 8-31 by mouth ity of capsule 18:35: daily. [place] [address] Medical Branch ferrous 2021-0 Yes 325mg Take 325 Unive rs sulfate 325 8-31 mg by ity of mg (65 mg 18:35: mouth 2 [place] iron) EC 55 (two) Medical tablet times Branch daily with meals. gabapentin 2021-0 Yes 400mg Take 400 Un pat 400 mg 8-31 mg by ity of capsule 18:35: mouth 2 [place] 55 (two) Medical times Branch daily. omeprazole 2021-0 Yes 20mg Take 20 mg U nivers 20 mg 8-31 by mouth ity of capsule 18:35: daily. [place] [address] Medical Branch tamsulosin 0 Yes Take by Univ ers 0.4 mg 24 8-31 mouth ity of hr capsule 18:35: daily. [place] [address] Medical Branch traZODone 0 Yes 100mg Take 100 Uni vers 100 mg 8-31 mg by ity of tablet 18:35: mouth at [place] [address] bedtime. Medical Branch SITagliptin 0 Yes 50mg Take 50 mg Univers (JANUVIA) 8-31 by mouth ity of 50 mg 18:35: daily. [place] [address] Medical Branch glimepiride 0 Yes 1mg Take 1 mg U nivers (AMARYL) 1 8-31 by mouth ity o f mg tablet 18:35: daily with [facility] 55 breakfast. Medical Branch amiodarone 0 Yes 200mg Take 200 Un pat 200 mg 8-31 mg by ity of tablet 18:35: mouth [place] [address] daily. Medical Branch carvediloL 0 Yes 25mg Take 25 mg U nivers (COREG) 25 8-31 by mouth 2 ity of mg tablet 18:35: (two) [place] [address] times [facility] daily with Branch meals. DULoxetine 0 Yes 60mg Take 60 mg U nivers 60 mg 8-31 by mouth ity of capsule 18:35: daily. [place] [address] Medical Branch ferrous 2021-0 Yes 325mg Take 325 Unive rs sulfate 325 8-31 mg by ity of mg (65 mg 18:35: mouth 2 [place] iron) EC 55 (two) Medical tablet times Branch daily with meals. gabapentin 2021-0 Yes 400mg Take 400 Un pat 400 mg 8-31 mg by ity of capsule 18:35: mouth 2 [place] [address] (two) Medical times Branch daily. omeprazole 0 Yes 20mg Take 20 mg U nivers 20 mg 8-31 by mouth ity of capsule 18:35: daily. [place] [address] Medical Branch tamsulosin 0 Yes Take by Univ ers 0.4 mg 24 8-31 mouth ity of hr capsule 18:35: daily. [place] [address] Medical Branch traZODone 0 Yes 100mg Take 100 Uni vers 100 mg 8-31 mg by ity of tablet 18:35: mouth at [place] [address] bedtime. Medical Branch SITagliptin 0 Yes 50mg Take 50 mg Univers (JANUVIA) 8-31 by mouth ity of 50 mg 18:35: daily. [place] [address] Medical Branch glimepiride 0 Yes 1mg Take 1 mg U nivers (AMARYL) 1 8-31 by mouth ity o f mg tablet 18:35: daily with [place] [address] breakfast. Medical Branch amiodarone 0 Yes 200mg Take 200 Un pat 200 mg 8-31 mg by ity of tablet 18:35: mouth [place] [address] daily. Medical Branch carvediloL 0 Yes 25mg Take 25 mg U nivers (COREG) 25 8-31 by mouth 2 ity of mg tablet 18:35: (two) [place] [address] times Medical daily with Branch meals. DULoxetine 0 Yes 60mg Take 60 mg U nivers 60 mg 8-31 by mouth ity of capsule 18:35: daily. [place] [address] Medical Branch ferrous 0 Yes 325mg Take 325 Unive rs sulfate 325 8-31 mg by ity of mg (65 mg 18:35: mouth 2 [place] iron) 55 (two) Medical tablet times Branch daily with meals. gabapentin 0 Yes 400mg Take 400 Un pat 400 mg 8-31 mg by ity of capsule 18:35: mouth 2 [place] [address] (two) Medical times Branch daily. omeprazole 0 Yes 20mg Take 20 mg [facility] nivers 20 mg 8-31 by mouth ity of capsule 18:35: daily. [place] [address] Medical Branch tamsulosin 0 Yes Take by Univ ers 0.4 mg 24 8-31 mouth ity of hr capsule 18:35: daily. [place] [address] Medical Branch traZODone 0 Yes 100mg Take 100 Uni vers 100 mg 8-31 mg by ity of tablet 18:35: mouth at [place] [address] bedtime. Medical Branch SITagliptin Yes 50mg Take 50 mg [facility] (JANUVIA) 8-31 by mouth ity of 50 mg 18:35: daily. [place] tablet Medical Branch glimepiride 0 Yes 1mg Take 1 mg U nivers (AMARYL) 1 8-31 by mouth ity o f mg tablet 18:35: daily with [place] 55 breakfast. Medical Branch amiodarone 0 Yes 200mg Take 200 Un pat 200 mg 8-31 mg by ity of tablet 18:35: mouth [place] [address] daily. Medical Branch carvediloL Yes 25mg Take 25 mg U nivers (COREG) 25 8-31 by mouth 2 ity of mg tablet 18:35: (two) [place] [address] times Medical daily with Branch meals. DULoxetine Yes 60mg Take 60 mg U nivers 60 mg 8-31 by mouth ity of capsule 18:35: daily. [place] [address] Medical Branch ferrous 0 Yes 325mg Take 325 Unive rs sulfate 325 8-31 mg by ity of mg (65 mg 18:35: mouth 2 [place] iron) EC 55 (two) Medical tablet times Branch daily with meals. gabapentin Yes 400mg Take 400 Un pat 400 mg 8-31 mg by ity of capsule 18:35: mouth 2 [place] 55 (two) Medical times Branch daily. omeprazole Yes 20mg Take 20 mg U nivers 20 mg 8-31 by mouth ity of capsule 18:35: daily. [place] [address] Medical Branch tamsulosin 0 Yes Take by Univ ers 0.4 mg 24 8-31 mouth ity of hr capsule 18:35: daily. [place] [address] Medical Branch traZODone 0 Yes 100mg Take 100 Uni vers 100 mg 8-31 mg by ity of tablet 18:35: mouth at [place] [address] bedtime. Medical Branch SITagliptin Yes 50mg Take 50 mg [facility] (JANUVIA) 8-31 by mouth ity of 50 mg 18:35: daily. [place] tablet Medical Branch glimepiride 2022-0 Yes 1mg Take 1 mg [facility] nivers (AMARYL) 1 8-31 by mouth ity o f mg tablet 18:35: daily with [place] 55 breakfast. Medical Branch amiodarone Yes 200mg Take 200 Un pat 200 mg 8-31 mg by ity of tablet 18:35: mouth [place] 55 daily. Medical Branch carvediloL Yes 25mg Take 25 mg U nivers (COREG) 25 8-31 by mouth 2 ity of mg tablet 18:35: (two) [place] [address] times Medical daily with Branch meals. DULoxetine Yes 60mg Take 60 mg U nivers 60 mg 8-31 by mouth ity of capsule 18:35: daily. [place] [address] Medical Branch ferrous 0 Yes 325mg Take 325 Unive rs sulfate 325 8-31 mg by ity of mg (65 mg 18:35: mouth 2 [place] iron) 55 (two) Medical tablet times Branch daily with meals. gabapentin Yes 400mg Take 400 Un pat 400 mg 8-31 mg by ity of capsule 18:35: mouth 2 [place] 55 (two) Medical times Branch daily. omeprazole 0 Yes 20mg Take 20 mg U nivers 20 mg 8-31 by mouth ity of capsule 18:35: daily. [place] [address] Medical Branch tamsulosin 0 Yes Take by Univ ers 0.4 mg 24 8-31 mouth ity of hr capsule 18:35: daily. [place] [address] Medical Branch traZODone 0 Yes 100mg Take 100 Uni vers 100 mg 8-31 mg by ity of tablet 18:35: mouth at [place] [address] bedtime. Medical Branch SITagliptin Yes 50mg Take 50 mg [facility] (JANUVIA) 8-31 by mouth ity of 50 mg 18:35: daily. [place] [address] Medical Branch glimepiride 0 Yes 1mg Take 1 mg U nivers (AMARYL) 1 8-31 by mouth ity o f mg tablet 18:35: daily with [place] 55 breakfast. Medical Branch amiodarone Yes 200mg Take 200 Un pat 200 mg 8-31 mg by ity of tablet 18:35: mouth [place] 55 daily. Medical Branch carvediloL Yes 25mg Take 25 mg U nivers (COREG) 25 8-31 by mouth 2 ity of mg tablet 18:35: (two) [place] [address] times Medical daily with Branch meals. DULoxetine 0 Yes 60mg Take 60 mg U nivers 60 mg 8-31 by mouth ity of capsule 18:35: daily. [place] [address] Medical Branch ferrous 0 Yes 325mg Take 325 Unive rs sulfate 325 8-31 mg by ity of mg (65 mg 18:35: mouth 2 [place] iron) 55 (two) Medical tablet times Branch daily with meals. gabapentin 0 Yes 400mg Take 400 Un pat 400 mg 8-31 mg by ity of capsule 18:35: mouth 2 [place] 55 (two) Medical times Branch daily. omeprazole 0 Yes 20mg Take 20 mg U nivers 20 mg 8-31 by mouth ity of capsule 18:35: daily. [place] [address] Medical Branch tamsulosin 0 Yes Take by Univ ers 0.4 mg 24 8-31 mouth ity of hr capsule 18:35: daily. [place] [address] Medical Branch traZODone 0 Yes 100mg Take 100 Uni vers 100 mg 8-31 mg by ity of tablet 18:35: mouth at [place] [address] bedtime. Medical Branch SITagliptin 0 Yes 50mg Take 50 mg [facility] (JANUVIA) 8-31 by mouth ity of 50 mg 18:35: daily. [place] [address] Medical Branch glimepiride 0 Yes 1mg Take 1 mg U nivers (AMARYL) 1 8-31 by mouth ity o f mg tablet 18:35: daily with [place] [address] breakfast. Medical Branch amiodarone 0 Yes 200mg Take 200 Un pat 200 mg 8-31 mg by ity of tablet 18:35: mouth [place] [address] daily. Medical Branch carvediloL 0 Yes 25mg Take 25 mg U nivers (COREG) 25 8-31 by mouth 2 ity of mg tablet 18:35: (two) [place] [address] times Medical daily with Branch meals. DULoxetine 0 Yes 60mg Take 60 mg U nivers 60 mg 8-31 by mouth ity of capsule 18:35: daily. [place] [address] Medical Branch ferrous 0 Yes 325mg Take 325 Unive rs sulfate 325 8-31 mg by ity of mg (65 mg 18:35: mouth 2 [place] iron) EC 55 (two) Medical tablet times Branch daily with meals. gabapentin 2021-0 Yes 400mg Take 400 Un pat 400 mg 8-31 mg by ity of capsule 18:35: mouth 2 [place] [address] (two) Medical times Branch daily. omeprazole 2021-0 Yes 20mg Take 20 mg U nivers 20 mg 8-31 by mouth ity of capsule 18:35: daily. [place] [address] Medical Branch tamsulosin 0 Yes Take by [facility] ers 0.4 mg 24 8-31 mouth ity of hr capsule 18:35: daily. [place] [address] Medical Branch traZODone 2021-0 Yes 100mg Take 100 Uni vers 100 mg 8-31 mg by ity of tablet 18:35: mouth at [place] [address] bedtime. Medical Branch SITagliptin 0 Yes 50mg Take 50 mg [facility] (JANUVIA) 8-31 by mouth ity of 50 mg 18:35: daily. [place] [address] Medical Branch glimepiride 0 Yes 1mg Take 1 mg U nivers (AMARYL) 1 8-31 by mouth ity o f mg tablet 18:35: daily with [place] 55 breakfast. Medical Branch amiodarone 0 Yes 200mg Take 200 Un pat 200 mg 8-31 mg by ity of tablet 18:35: mouth [place] [address] daily. Medical Branch carvediloL 0 Yes 25mg Take 25 mg U nivers (COREG) 25 8-31 by mouth 2 ity of mg tablet 18:35: (two) [place] [address] times [facility] daily with Branch meals. DULoxetine 0 Yes 60mg Take 60 mg U nivers 60 mg 8-31 by mouth ity of capsule 18:35: daily. [place] [address] Medical Branch ferrous 2021-0 Yes 325mg Take 325 Unive rs sulfate 325 8-31 mg by ity of mg (65 mg 18:35: mouth 2 [facility]) EC 55 (two) Medical tablet times Branch daily with meals. gabapentin 2021-0 Yes 400mg Take 400 Un pat 400 mg 8-31 mg by ity of capsule 18:35: mouth 2 [place] 55 (two) Medical times Branch daily. omeprazole 2021-0 Yes 20mg Take 20 mg U nivers 20 mg 8-31 by mouth ity of capsule 18:35: daily. [place] [address] Medical Branch tamsulosin 0 Yes Take by Univ ers 0.4 mg 24 8-31 mouth ity of hr capsule 18:35: daily. [place] [address] Medical Branch traZODone 0 Yes 100mg Take 100 Uni vers 100 mg 8-31 mg by ity of tablet 18:35: mouth at [place] [address] bedtime. Medical Branch SITagliptin 0 Yes 50mg Take 50 mg [facility] (JANUVIA) 8-31 by mouth ity of 50 mg 18:35: daily. [place] [address] Medical Branch glimepiride 0 Yes 1mg Take 1 mg U nivers (AMARYL) 1 8-31 by mouth ity o f mg tablet 18:35: daily [place] 55 breakfast. Medical Branch amiodarone 0 Yes 200mg Take 200 Un pat 200 mg 8-31 mg by ity of tablet 18:35: mouth [place] [address] daily. Medical Branch carvediloL 0 Yes 25mg Take 25 mg U nivers (COREG) 25 8-31 by mouth 2 ity of mg tablet 18:35: (two) [place] [address] times Medical daily with Branch meals. DULoxetine 0 Yes 60mg Take 60 mg U nivers 60 mg 8-31 by mouth ity of capsule 18:35: daily. [place] [address] Medical Branch ferrous 0 Yes 325mg Take 325 Unive rs sulfate 325 8-31 mg by ity of mg (65 mg 18:35: mouth 2 [place] iron) 55 (two) Medical tablet times Branch daily with meals. gabapentin 0 Yes 400mg Take 400 Un pat 400 mg 8-31 mg by ity of capsule 18:35: mouth 2 [place] 55 (two) Medical times Branch daily. omeprazole 0 Yes 20mg Take 20 mg U nivers 20 mg 8-31 by mouth ity of capsule 18:35: daily. [place] [address] Medical Branch tamsulosin 0 Yes Take by Univ ers 0.4 mg 24 8-31 mouth ity of hr capsule 18:35: daily. [place] [address] Medical Branch traZODone 0 Yes 100mg Take 100 Uni vers 100 mg 8-31 mg by ity of tablet 18:35: mouth at [place] [address] bedtime. Medical Branch SITagliptin 0 Yes 50mg Take 50 mg Univers (JANUVIA) 8-31 by mouth ity of 50 mg 18:35: daily. [place] tablet 55 Medical Branch glimepiride 0 Yes 1mg Take 1 mg U nivers (AMARYL) 1 8-31 by mouth ity o f mg tablet 18:35: daily with [place] 55 breakfast. Medical Branch amiodarone 0 Yes 200mg Take 200 Un pat 200 mg 8-31 mg by ity of tablet 18:35: mouth [place] 55 daily. Medical Branch carvediloL 0 Yes 25mg Take 25 mg U nivers (COREG) 25 8-31 by mouth 2 ity of mg tablet 18:35: (two) [place] [address] times Medical daily with Branch meals. DULoxetine 0 Yes 60mg Take 60 mg U nivers 60 mg 8-31 by mouth ity of capsule 18:35: daily. [place] [address] Medical Branch ferrous 0 Yes 325mg Take 325 Unive rs sulfate 325 8-31 mg by ity of mg (65 mg 18:35: mouth 2 [place] iron) EC 55 (two) Medical tablet times Branch daily with meals. gabapentin 0 Yes 400mg Take 400 Un pat 400 mg 8-31 mg by ity of capsule 18:35: mouth 2 [place] 55 (two) Medical times Branch daily. omeprazole 0 Yes 20mg Take 20 mg U nivers 20 mg 8-31 by mouth ity of capsule 18:35: daily. [place] [address] Medical Branch tamsulosin 0 Yes Take by Univ ers 0.4 mg 24 8-31 mouth ity of hr capsule 18:35: daily. [place] [address] Medical Branch traZODone 0 Yes 100mg Take 100 Uni vers 100 mg 8-31 mg by ity of tablet 18:35: mouth at [place] [address] bedtime. Medical Branch SITagliptin 0 Yes 50mg Take 50 mg Univers (JANUVIA) 8-31 by mouth ity of 50 mg 18:35: daily. [place] tablet 55 Medical Branch glimepiride 0 Yes 1mg Take 1 mg U nivers (AMARYL) 1 8-31 by mouth ity o f mg tablet 18:35: daily with [place] 55 breakfast. Medical Branch amiodarone 0 Yes 200mg Take 200 Un pat 200 mg 8-31 mg by ity of tablet 18:35: mouth [place] [address] daily. Medical Branch carvediloL 0 Yes 25mg Take 25 mg U nivers (COREG) 25 8-31 by mouth 2 ity of mg tablet 18:35: (two) [place] [address] times Medical daily with Branch meals. DULoxetine 0 Yes 60mg Take 60 mg U nivers 60 mg 8-31 by mouth ity of capsule 18:35: daily. [place] [address] Medical Branch ferrous 0 Yes 325mg Take 325 Unive rs sulfate 325 8-31 mg by ity of mg (65 mg 18:35: mouth 2 [place] iron) 55 (two) Medical tablet times [place] daily with meals. gabapentin 0 Yes 400mg Take 400 Un pat 400 mg 8-31 mg by ity of capsule 18:35: mouth 2 [place] 55 (two) Medical times Branch daily. omeprazole Yes 20mg Take 20 mg U nivers 20 mg 8-31 by mouth ity of capsule 18:35: daily. [place] [address] Medical Branch tamsulosin 0 Yes Take by Univ ers 0.4 mg 24 8-31 mouth ity of hr capsule 18:35: daily. [place] [address] Medical Branch traZODone 0 Yes 100mg Take 100 Uni vers 100 mg 8-31 mg by ity of tablet 18:35: mouth at [place] [address] bedtime. Medical Branch SITagliptin 0 Yes 50mg Take 50 mg [facility] (JANUVIA) 8-31 by mouth ity of 50 mg 18:35: daily. [place] [address] Medical Branch glimepiride 0 Yes 1mg Take 1 mg U nivers (AMARYL) 1 8-31 by mouth ity o f mg tablet 18:35: daily with [place] 55 breakfast. Medical Branch amiodarone 0 Yes 200mg Take 200 Un pat 200 mg 8-31 mg by ity of tablet 18:35: mouth [place] [address] daily. Medical Branch carvediloL Yes 25mg Take 25 mg U nivers (COREG) 25 8-31 by mouth 2 ity of mg tablet 18:35: (two) [place] [address] times Medical daily with Branch meals. DULoxetine 0 Yes 60mg Take 60 mg U nivers 60 mg 8-31 by mouth ity of capsule 18:35: daily. [address] ferrous 0 Yes 325mg Take 325 Unive rs sulfate 325 8-31 mg by ity of mg (65 mg 18:35: mouth 2 [place] iron) 55 (two) Medical tablet times Branch daily with meals. gabapentin 0 Yes 400mg Take 400 Un pat 400 mg 8-31 mg by ity of capsule 18:35: mouth 2 [place] 55 (two) Medical times Branch daily. omeprazole 0 Yes 20mg Take 20 mg U nivers 20 mg 8-31 by mouth ity of capsule 18:35: daily. [address] tamsulosin 0 Yes Take by Univ ers 0.4 mg 24 8-31 mouth ity of hr capsule 18:35: daily. [address] SITagliptin 0 Yes 50mg Take 50 mg Univers (JANUVIA) 8-31 by mouth ity of 50 mg 18:35: daily. [place] [address] Medical Branch levothyroxi 2021- No 25ug Take 25 Un pat ne 25 mcg 8- 08-31 mcg by ity of tablet 10:19: 00:00 mouth [place] 34 :00 every Medical morning. Branch lisinopriL 0 2021- No 20mg Take 20 mg Univers 20 mg 8-31 08-31 by mouth ity of tablet 10:19: 00:00 daily. [place] 34 :00 Medical Branch polyethylen 2021-0 Yes [id number] 17g Take 1 Univers e glycol 8-31 Packet by ity of 3350 17 00:00: mouth in [place] gram powder 00 the Medical morning Branch and 1 Packet in the evening. ergocalcife 2021-0 Yes [id number] Take 1 Univers rol, 8-31 capsule by ity of vitamin d2, 00:00: mouth [place] 1,250 mcg 00 weekly. Medical (50,000 Branch unit) capsule polyethylen 2021-0 Yes [id number] 17g Take 1 Univers e glycol 8-31 Packet by ity of 3350 17 00:00: mouth in [place] gram powder 00 the Medical morning Branch and 1 Packet in the evening. ergocalcife 2021-0 Yes [id number] Take 1 [facility] rol, 8-31 capsule by ity of vitamin d2, 00:00: mouth [place] 1,250 mcg 00 weekly. Medical (50,000 Branch unit) capsule polyethylen 2022-0 Yes [id number] 17g Take 1 Univers e glycol 8-31 Packet by ity of 3350 17 00:00: mouth in [place] gram powder 00 the Medical morning Branch and 1 Packet in the evening. ergocalcife 2022-0 Yes [id number] Take 1 [facility] rol, 8-31 capsule by ity of vitamin d2, 00:00: mouth [place] 1,250 mcg 00 weekly. Medical (50,000 Branch unit) capsule polyethylen 2022-0 Yes [id number] 17g Take 1 Univers e glycol 8-31 Packet by ity of 3350 17 00:00: mouth in [place] gram powder 00 the Medical morning Branch and 1 Packet in the evening. ergocalcife 2022-0 Yes [id number] Take 1 Univers rol, 8-31 capsule by ity of vitamin d2, 00:00: mouth [place] 1,250 mcg 00 weekly. Medical (50,000 Branch unit) capsule polyethylen 2022-0 Yes [id number] 17g Take 1 Univers e glycol 8-31 Packet by ity of 3350 17 00:00: mouth in [place] gram powder 00 the Medical morning Branch and 1 Packet in the evening. ergocalcife 2022-0 Yes [id number] Take 1 [facility] rol, 8-31 capsule by ity of vitamin d2, 00:00: mouth [place] 1,250 mcg 00 weekly. Medical (50,000 Branch unit) capsule polyethylen 2022-0 Yes [id number] 17g Take 1 Univers e glycol 8-31 Packet by ity of 3350 17 00:00: mouth in [place] gram powder 00 the Medical morning Branch and 1 Packet in the evening. ergocalcife 2022-0 Yes [id number] Take 1 [facility] rol, 8-31 capsule by ity of vitamin d2, 00:00: mouth [place] 1,250 mcg 00 weekly. Medical (50,000 Branch unit) capsule polyethylen 2022-0 Yes [id number] 17g Take 1 Univers e glycol 8-31 Packet by ity of 3350 17 00:00: mouth in [place] gram powder 00 the Medical morning Branch and 1 Packet in the evening. ergocalcife 2022-0 Yes [id number] Take 1 [facility] rol, 8-31 capsule by ity of vitamin d2, 00:00: mouth [place] 1,250 mcg 00 weekly. Medical (50,000 Branch unit) capsule polyethylen 2022-0 Yes [id number] 17g Take 1 Univers e glycol 8-31 Packet by ity of 3350 17 00:00: mouth in [place] gram powder 00 the Medical morning Branch and 1 Packet in the evening. ergocalcife 2-0 Yes [id number] Take 1 [facility] rol, 8-31 capsule by ity of vitamin d2, 00:00: mouth [place] 1,250 mcg 00 weekly. Medical (50,000 Branch unit) capsule polyethylen 2022-0 Yes [id number] 17g Take 1 Univers e glycol 8-31 Packet by ity of 3350 17 00:00: mouth in [place] gram powder 00 the Medical morning Branch and 1 Packet in the evening. ergocalcife 2-0 Yes [id number] Take 1 [facility] rol, 8-31 capsule by ity of vitamin d2, 00:00: mouth [place] 1,250 mcg 00 weekly. Medical (50,000 Branch unit) capsule polyethylen 2-0 Yes [id number] 17g Take 1 Univers e glycol 8-31 Packet by ity of 3350 17 00:00: mouth in [place] gram powder 00 the Medical morning Branch and 1 Packet in the evening. ergocalcife 2-0 Yes [id number] Take 1 [facility] rol, 8-31 capsule by ity of vitamin d2, 00:00: mouth [place] 1,250 mcg 00 weekly. Medical (50,000 Branch unit) capsule polyethylen 2022-0 Yes [id number] 17g Take 1 Univers e glycol 8-31 Packet by ity of 3350 17 00:00: mouth in [place] gram powder 00 the Medical morning Branch and 1 Packet in the evening. ergocalcife 2022-0 Yes [id number] Take 1 [facility] rol, 8-31 capsule by ity of vitamin d2, 00:00: mouth [place] 1,250 mcg 00 weekly. Medical (50,000 Branch unit) capsule polyethylen 2022-0 Yes [id number] 17g Take 1 Univers e glycol 8-31 Packet by ity of 3350 17 00:00: mouth in [place] gram powder 00 the Medical morning Branch and 1 Packet in the evening. ergocalcife 2022-0 Yes [id number] Take 1 [facility] rol, 8-31 capsule by ity of vitamin d2, 00:00: mouth [place] 1,250 mcg 00 weekly. Medical (50,000 Branch unit) capsule polyethylen 2022-0 Yes [id number] 17g Take 1 Univers e glycol 8-31 Packet by ity of 3350 17 00:00: mouth in [place] gram powder 00 the Medical morning Branch and 1 Packet in the evening. ergocalcife 2022-0 Yes [id number] Take 1 [facility] rol, 8-31 capsule by ity of vitamin d2, 00:00: mouth [place] 1,250 mcg 00 weekly. Medical (50,000 Branch unit) capsule polyethylen 2022-0 Yes [id number] 17g Take 1 Univers e glycol 8-31 Packet by ity of 3350 17 00:00: mouth in [place] gram powder 00 the Medical morning Branch and 1 Packet in the evening. ergocalcife 2022-0 Yes [id number] Take 1 Univers rol, 8-31 capsule by ity of vitamin d2, 00:00: mouth [place] 1,250 mcg 00 weekly. Medical (50,000 Branch unit) capsule polyethylen 2022-0 Yes [id number] 17g Take 1 Univers e glycol 8-31 Packet by ity of 3350 17 00:00: mouth in [place] gram powder 00 the Medical morning Branch and 1 Packet in the evening. ergocalcife 2022-0 Yes [id number] Take 1 Univers rol, 8-31 capsule by ity of vitamin d2, 00:00: mouth [place] 1,250 mcg 00 weekly. Medical (50,000 Branch unit) capsule polyethylen 2022-0 Yes [id number] 17g Take 1 Univers e glycol 8-31 Packet by ity of 3350 17 00:00: mouth in [place] gram powder 00 the Medical morning Branch and 1 Packet in the evening. ergocalcife 2022-0 Yes [id number] Take 1 Univers rol, 8-31 capsule by ity of vitamin d2, 00:00: mouth [place] 1,250 mcg 00 weekly. Medical (50,000 Branch unit) capsule polyethylen 2022-0 Yes [id number] 17g Take 1 Univers e glycol 8-31 Packet by ity of 3350 17 00:00: mouth in [place] gram powder 00 the Medical morning Branch and 1 Packet in the evening. ergocalcife 2022-0 Yes [id number] Take 1 [facility] rol, 8-31 capsule by ity of vitamin d2, 00:00: mouth [place] 1,250 mcg 00 weekly. Medical (50,000 Branch unit) capsule polyethylen 2022-0 Yes [id number] 17g Take 1 Univers e glycol 8-31 Packet by ity of 3350 17 00:00: mouth in [place] gram powder 00 the Medical morning Branch and 1 Packet in the evening. ergocalcife 2022-0 Yes [id number] Take 1 [facility] rol, 8-31 capsule by ity of vitamin d2, 00:00: mouth [place] 1,250 mcg 00 weekly. Medical (50,000 Branch unit) capsule polyethylen 2022-0 Yes [id number] 17g Take 1 Univers e glycol 8-31 Packet by ity of 3350 17 00:00: mouth in [place] gram powder 00 the Medical morning Branch and 1 Packet in the evening. ergocalcife 2022-0 Yes [id number] Take 1 [facility] rol, 8-31 capsule by ity of vitamin d2, 00:00: mouth [place] 1,250 mcg 00 weekly. Medical (50,000 Branch unit) capsule polyethylen 2022-0 Yes [id number] 17g Take 1 Univers e glycol 8-31 Packet by ity of 3350 17 00:00: mouth in [place] gram powder 00 the Medical morning Branch and 1 Packet in the evening. ergocalcife 2-0 Yes [id number] Take 1 [facility] rol, 8-31 capsule by ity of vitamin d2, 00:00: mouth [place] 1,250 mcg 00 weekly. Medical (50,000 Branch unit) capsule polyethylen 2022-0 Yes [id number] 17g Take 1 Univers e glycol 8-31 Packet by ity of 3350 17 00:00: mouth in [place] gram powder 00 the Medical morning Branch and 1 Packet in the evening. ergocalcife 2022-0 Yes [id number] Take 1 [facility] rol, 8-31 capsule by ity of vitamin d2, 00:00: mouth [place] 1,250 mcg 00 weekly. Medical (50,000 Branch unit) capsule polyethylen 2022-0 Yes [id number] 17g Take 1 Univers e glycol 8-31 Packet by ity of 3350 17 00:00: mouth in [place] gram powder 00 the Medical morning Branch and 1 Packet in the evening. ergocalcife 2022-0 Yes [id number] Take 1 [facility] rol, 8-31 capsule by ity of vitamin d2, 00:00: mouth [place] 1,250 mcg 00 weekly. Medical (50,000 Branch unit) capsule polyethylen 2022-0 Yes [id number] 17g Take 1 Univers e glycol 8-31 Packet by ity of 3350 17 00:00: mouth in [place] gram powder 00 the Medical morning Branch and 1 Packet in the evening. ergocalcife 2022-0 Yes [id number] Take 1 [facility] rol, 8-31 capsule by ity of vitamin d2, 00:00: mouth [place] 1,250 mcg 00 weekly. Medical (50,000 Branch unit) capsule polyethylen 2022-0 Yes [id number] 17g Take 1 Univers e glycol 8-31 Packet by ity of 3350 17 00:00: mouth in [place] gram powder 00 the Medical morning Branch and 1 Packet in the evening. ergocalcife 2022-0 Yes [id number] Take 1 [facility] rol, 8-31 capsule by ity of vitamin d2, 00:00: mouth [place] 1,250 mcg 00 weekly. Medical (50,000 Branch unit) capsule ergocalcife 2022-0 Yes [id number] Take 1 [facility] rol, 8-31 capsule by ity of vitamin d2, 00:00: mouth [place] 1,250 mcg 00 weekly. Medical (50,000 Branch unit) capsule ergocalcife 2022-0 Yes [id number] Take 1 [facility] rol, 8-31 capsule by ity of vitamin d2, 00:00: mouth [place] 1,250 mcg 00 weekly. Medical (50,000 Branch unit) capsule ergocalcife 2022-0 Yes [id number] Take 1 [facility] rol, 8-31 capsule by ity of vitamin d2, 00:00: mouth [place] 1,250 mcg 00 weekly. Medical (50,000 Branch unit) capsule ergocalcife 2022-0 Yes [id number] Take 1 [facility] rol, 8-31 capsule by ity of vitamin d2, 00:00: mouth [place] 1,250 mcg 00 weekly. Medical (50,000 Branch unit) capsule ergocalcife 2022-0 Yes [id number] Take 1 [facility] rol, 8-31 capsule by ity of vitamin d2, 00:00: mouth [place] 1,250 mcg 00 weekly. Medical (50,000 Branch unit) capsule ergocalcife 2022-0 Yes [id number] Take 1 [facility] rol, 8-31 capsule by ity of vitamin d2, 00:00: mouth [place] 1,250 mcg 00 weekly. Medical (50,000 Branch unit) capsule ergocalcife 2022-0 Yes [id number] Take 1 [facility] rol, 8-31 capsule by ity of vitamin d2, 00:00: mouth [place] 1,250 mcg 00 weekly. Medical (50,000 Branch unit) capsule ergocalcife 2022-0 Yes [id number] Take 1 [facility] rol, 8-31 capsule by ity of vitamin d2, 00:00: mouth [place] 1,250 mcg 00 weekly. Medical (50,000 Branch unit) capsule ergocalcife 2022-0 Yes [id number] Take 1 [facility] rol, 8-31 capsule by ity of vitamin d2, 00:00: mouth [place] 1,250 mcg 00 weekly. Medical (50,000 Branch unit) capsule ergocalcife 2022-0 Yes [id number] Take 1 [facility] rol, 8-31 capsule by ity of vitamin d2, 00:00: mouth [place] 1,250 mcg 00 weekly. Medical (50,000 Branch unit) capsule ergocalcife 2022-0 Yes [id number] Take 1 [facility] rol, 8-31 capsule by ity of vitamin d2, 00:00: mouth [place] 1,250 mcg 00 weekly. Medical (50,000 Branch unit) capsule ergocalcife 2022-0 Yes [id number] Take 1 [facility] rol, 8-31 capsule by ity of vitamin d2, 00:00: mouth [place] 1,250 mcg 00 weekly. Medical (50,000 Branch unit) capsule ergocalcife 2022-0 Yes [id number] Take 1 [facility] rol, 8-31 capsule by ity of vitamin d2, 00:00: mouth [place] 1,250 mcg 00 weekly. Medical (50,000 Branch unit) capsule ergocalcife 2022-0 Yes [id number] Take 1 [facility] rol, 8-31 capsule by ity of vitamin d2, 00:00: mouth [place] 1,250 mcg 00 weekly. Medical (50,000 Branch unit) capsule ergocalcife 2022-0 Yes [id number] Take 1 [facility] rol, 8-31 capsule by ity of vitamin d2, 00:00: mouth [place] 1,250 mcg 00 weekly. Medical (50,000 Branch unit) capsule ergocalcife 2022-0 Yes [id number] Take 1 [facility] rol, 8-31 capsule by ity of vitamin d2, 00:00: mouth [place] 1,250 mcg 00 weekly. Medical (50,000 Branch unit) capsule ergocalcife 2022-0 Yes [id number] Take 1 [facility] rol, 8-31 capsule by ity of vitamin d2, 00:00: mouth [place] 1,250 mcg 00 weekly. Medical (50,000 Branch unit) capsule ergocalcife 2022-0 Yes [id number] Take 1 [facility] rol, 8-31 capsule by ity of vitamin d2, 00:00: mouth [place] 1,250 mcg 00 weekly. Medical (50,000 Branch unit) capsule ergocalcife 2022-0 Yes [id number] Take 1 [facility] rol, 8-31 capsule by ity of vitamin d2, 00:00: mouth [place] 1,250 mcg 00 weekly. Medical (50,000 Branch unit) capsule ergocalcife 2022-0 Yes [id number] Take 1 [facility] rol, 8-31 capsule by ity of vitamin d2, 00:00: mouth [place] 1,250 mcg 00 weekly. Medical (50,000 Branch unit) capsule ergocalcife 2022-0 Yes [id number] Take 1 [facility] rol, 8-31 capsule by ity of vitamin d2, 00:00: mouth [place] 1,250 mcg 00 weekly. Medical (50,000 Branch unit) capsule ergocalcife 2022-0 Yes [id number] Take 1 [facility] rol, 8-31 capsule by ity of vitamin d2, 00:00: mouth [place] 1,250 mcg 00 weekly. Medical (50,000 Branch unit) capsule ergocalcife 2022-0 Yes [id number] Take 1 [facility] rol, 8-31 capsule by ity of vitamin d2, 00:00: mouth [place] 1,250 mcg 00 weekly. Medical (50,000 Branch unit) capsule ergocalcife 2022-0 Yes [id number] Take 1 [facility] rol, 8-31 capsule by ity of vitamin d2, 00:00: mouth [place] 1,250 mcg 00 weekly. Medical (50,000 Branch unit) capsule ergocalcife 2022-0 Yes [id number] Take 1 [facility] rol, 8-31 capsule by ity of vitamin d2, 00:00: mouth [place] 1,250 mcg 00 weekly. Medical (50,000 Branch unit) capsule ergocalcife 2022-0 Yes [id number] Take 1 [facility] rol, 8-31 capsule by ity of vitamin d2, 00:00: mouth [place] 1,250 mcg 00 weekly. Medical (50,000 Branch unit) capsule polyethylen 2021-0 2021- No [id number] 17g Take 1 [facility] e glycol 8-31 11-21 Packet by ity o f 3350 17 00:00: 00:00 mouth in [place] gram powder 00 :00 the Medical morning Branch and 1 Packet in the evening. polyethylen 2021-0 2- No [id number] 17g Take 1 [facility] e glycol 8-31 11-21 Packet by ity o f 3350 17 00:00: 00:00 mouth in [place] gram powder 00 :00 the Medical morning Branch and 1 Packet in the evening. polyethylen 2021-0 2021- No [id number] 17g Take 1 [facility] e glycol 8-31 11-21 Packet by ity o f 3350 17 00:00: 00:00 mouth in [place] gram powder 00 :00 the Medical morning Branch and 1 Packet in the evening. polyethylen 2-0 2- No [id number] 17g Take 1 [facility] e glycol 8-31 11-21 Packet by ity o f 3350 17 00:00: 00:00 mouth in [place] gram powder 00 :00 the Medical morning Branch and 1 Packet in the evening. bisacodyL 2021- No [id number] 10mg Insert 1 [facility] 10 mg 8-31 10- Suppositor ity of suppository 00:00: 04:59 y into [place] 00 :00 rectum Medical once daily Branch as needed for Constipati on unresolved by oral medication s for up to 30 days. metFORMIN 2021-2021- No [id number] 500mg Take 1 [facility] 500 mg 8-31 10-01 tablet by ity of tablet 00:00: 04:59 mouth in [place] 00 :00 the Medical morning Branch and 1 tablet in the evening. Take with meals. Do all this for 30 days. methocarbam 2021- No [id number] 750mg Take 1 [facility] oL 750 mg 8-31 10- tablet by ity of tablet 00:00: 04:59 mouth 4 [place] 00 :00 (four) Medical times [place] daily for 30 days. melatonin 3 2021- No [id number] 3mg Take 1 [facility] mg tablet 8- 10- tablet by ity of 00:00: 04:59 mouth at [place] 00 :00 [facility] for 30 Branch days. bisacodyL 2021- No [id number] 10mg Insert 1 [facility] 10 mg 8-31 10- Suppositor ity of suppository 00:00: 04:59 y into [place] 00 :00 rectum Medical once daily Branch as needed for Constipati on unresolved by oral medication s for up to 30 days. metFORMIN 2021- No [id number] 500mg Take 1 [facility] 500 mg 8- 10- tablet by ity of tablet 00:00: 04:59 mouth in [place] 00 :00 the Medical morning Branch and 1 tablet in the evening. Take with meals. Do all this for 30 days. methocarbam 2021- No [id number] 750mg Take 1 [facility] oL 750 mg 8- 10- tablet by ity of tablet 00:00: 04:59 mouth 4 [place] 00 :00 (four) Medical times [place] daily for 30 days. melatonin 3 2021- No [id number] 3mg Take 1 [facility] mg tablet 8- 10- tablet by ity of 00:00: 04:59 mouth at [place] 00 :00 bedtime Medical for 30 Branch days. bisacodyL 2021- No [id number] 10mg Insert 1 [facility] 10 mg 8-31 10-01 Suppositor ity of suppository 00:00: 04:59 y into [place] 00 :00 rectum Medical once daily Branch as needed for Constipati on unresolved by oral medication s for up to 30 days. metFORMIN 2021- No [id number] 500mg Take 1 [facility] 500 mg 8-31 10-01 tablet by ity of tablet 00:00: 04:59 mouth in [place] 00 :00 the Medical morning Branch and 1 tablet in the evening. Take with meals. Do all this for 30 days. methocarbam 2021- No [id number] 750mg Take 1 [facility] oL 750 mg 8-31 10- tablet by ity of tablet 00:00: 04:59 mouth 4 [place] 00 :00 ([facility]) Medical times [place] daily for 30 days. melatonin 3 2021- No [id number] 3mg Take 1 [facility] mg tablet 8- 10- tablet by ity of 00:00: 04:59 mouth at [place] 00 :00 [facility] Medical for 30 Branch days. bisacodyL 2021- No [id number] 10mg Insert 1 [facility] 10 mg 8-31 10-01 Suppositor ity of suppository 00:00: 04:59 y into [place] 00 :00 rectum Medical once daily Branch as needed for Constipati on unresolved by oral medication s for up to 30 days. metFORMIN 2021- No [id number] 500mg Take 1 [facility] 500 mg 8-31 10-01 tablet by ity of tablet 00:00: 04:59 mouth in [place] 00 :00 the Medical morning Branch and 1 tablet in the evening. Take with meals. Do all this for 30 days. methocarbam 2021- No [id number] 750mg Take 1 [facility] oL 750 mg 8-31 10-01 tablet by ity of tablet 00:00: 04:59 mouth 4 [place] 00 :00 (four) Medical times [place] daily for 30 days. melatonin 3 2021- No [id number] 3mg Take 1 [facility] mg tablet 8- 10-01 tablet by ity of 00:00: 04:59 mouth at [place] 00 :00 bedtime Medical for 30 Branch days. bisacodyL 2021- No [id number] 10mg Insert 1 [facility] 10 mg 8-31 10-01 Suppositor ity of suppository 00:00: 04:59 y into [place] 00 :00 rectum Medical once daily Branch as needed for Constipati on unresolved by oral medication s for up to 30 days. metFORMIN 2021- No [id number] 500mg Take 1 [facility] 500 mg 8-31 10-01 tablet by ity of tablet 00:00: 04:59 mouth in [place] 00 :00 the Medical morning Branch and 1 tablet in the evening. Take with meals. Do all this for 30 days. methocarbam 2021- No [id number] 750mg Take 1 [facility] oL 750 mg 8-31 10-01 tablet by ity of tablet 00:00: 04:59 mouth 4 [place] 00 :00 ([facility] Medical times [place] daily for 30 days. melatonin 3 2021- No [id number] 3mg Take 1 [facility] mg tablet 8-31 10- tablet by ity of 00:00: 04:59 mouth at [place] 00 :00 [facility] Medical for 30 Branch days. bisacodyL 2021- No [id number] 10mg Insert 1 [facility] 10 mg 8-31 10-01 Suppositor ity of suppository 00:00: 04:59 y into [place] [facility] as 00 :00 rectum Medical once daily Branch as needed for Constipati on unresolved by oral medication s for up to 30 days. metFORMIN 2021- No [id number] 500mg Take 1 [facility] 500 mg 8-31 10-01 tablet by ity of tablet 00:00: 04:59 mouth in [place] 00 :00 the Medical morning Branch and 1 tablet in the evening. Take with meals. Do all this for 30 days. methocarbam 2021- No [id number] 750mg Take 1 [facility] oL 750 mg 8-31 10-01 tablet by ity of tablet 00:00: 04:59 mouth 4 [place] 00 :00 ([facility]) Medical times [place] daily for 30 days. melatonin 3 2021- No [id number] 3mg Take 1 [facility] mg tablet 8-31 10-01 tablet by ity of 00:00: 04:59 mouth at [place] 00 :00 bedtime Medical for 30 days. rivastigmin 2021- Yes [id number] 1{patch Apply 1 [facility] e 4.6 mg/24 7-29 } Patch to ity of hour patch 00:00: [place] the morning. Branch Call office for refill when script completed. rivastigmin 2021- Yes [id number] 1{patch Apply 1 [facility] e 4.6 mg/24 7-29 } Patch to [place] of hour patch 00:00: [place] the morning. Branch Call office for refill when script completed. rivastigmin 2021- Yes [id number] 1{patch Apply 1 [facility] e 4.6 mg/24 7-29 } Patch to [facility] of hour patch 00:00: [place] the morning. Branch Call office for refill when script completed. rivastigmin 2021- Yes [id number] 1{patch Apply 1 [facility] e 4.6 mg/24 7-29 } Patch to [facility]y of hour patch 00:00: [place] the morning. Branch Call office for refill when script completed. rivastigmin 2021- Yes [id number] 1{patch Apply 1 [facility] e 4.6 mg/24 7-29 } Patch to [facility] of hour patch 00:00: [place] the morning. Branch Call office for refill when script completed. rivastigmin 2021- Yes [id number] 1{patch Apply 1 [facility] e 4.6 mg/24 7-29 } Patch to ity of hour patch 00:00: skin [place] morning. Branch Call office for refill when script completed. rivastigmin 2021- Yes [id number] 1{patch Apply 1 [facility] e 4.6 mg/24 7-29 } Patch to [facility] of hour patch 00:00: [place] the morning. Branch Call office for refill when script completed. rivastigmin 2021- Yes [id number] 1{patch Apply 1 [facility] e 4.6 mg/24 7-29 } Patch to [facility]y of hour patch 00:00: [place] the [place] morning. Branch Call office for refill when script completed. rivastigmin Yes [id number] 1{patch Apply 1 [facility] e 4.6 mg/24 7-29 } Patch to [place] of hour patch 00:00: [place] 00 the Medical morning. Branch Call office for refill when script completed. rivastigmin Yes [id number] 1{patch Apply 1 [facility] e 4.6 mg/24 7-29 } Patch to [place] of hour patch 00:00: [place] 00 the Medical morning. Branch Call office for refill when script completed. rivastigmin Yes [id number] 1{patch Apply 1 [facility] e 4.6 mg/24 7-29 } Patch to [place] of hour patch 00:00: [place] 00 the Medical morning. Branch Call office for refill when script completed. rivastigmin 2- No [id number] 1{patch Apply 1 [facility] e 4.6 mg/24 7-29 10-24 } Patch to ity of hour patch 00:00: 00:00 skin in [place] 00 :00 the Medical morning. Branch Call office for refill when script completed. rivastigmin 2021- No [id number] 1{patch Apply 1 [facility] e 4.6 mg/24 7-29 10-24 } Patch to ity of hour patch 00:00: 00:00 skin in [place] 00 :00 the Medical morning. Branch Call office for refill when script completed. ergocalcife 2021- No [id number] 81715H Take 1 [facility] rol, 08-11 08- [id number] capsule by ity of vitamin d2, 00:00: 00:00 mouth [place] 1,250 m[place] 00 :00 weekly for Medi do[place] (50,000 8 doses. Branch unit) capsule levothyroxi Yes [id number] 25ug QD Take 1 [facility] ne 6-13 tablet (25 st (SYNTHROID) 00:00: mcg total) Hospita 25 mcg 00 by mouth l tablet every morning. glimepiride Yes [id number] 1mg QD Take 1 [facility] (AMARYL) 1 6-13 tablet (1 st MG tablet 00:00: mg total) [facility] 00 by mouth l daily before breakfast. cholecalcif 2022-0 Yes [id number] 2000U QD Take 1 [facility], 6-[address] vitamin D3, 00:00: (2,000 [facility] (cholecalci 00 Units l ferol, total) by vitamin mouth D3,) 50 mcg daily. (2,000 Take with unit) food. capsule capsule levothyroxi 2-0 Yes [id number] 25ug QD Take 1 [facility] ne 6-[facility] tablet (25 st (SYNTHROID) 00:00: mcg total) Hospita 25 mcg 00 by mouth l tablet every morning. glimepiride 2021-0 Yes [id number] 1mg QD Take 1 [facility] (AMARYL) 1 6-13 tablet (1 st MG tablet 00:00: mg total) [facility] 00 by mouth l daily before breakfast. cholecalcif 2021-0 Yes [id number] 2000U QD Take 1 [facility], 6-[address] vitamin D3, 00:00: (2,000 [facility] (cholecalci 00 Units l ferol, total) by vitamin mouth D3,) 50 mcg daily. (2,000 Take with unit) food. capsule capsule levothyroxi 2021-0 Yes [id number] 25ug QD Take 1 [facility] ne 6-13 tablet (25 st (SYNTHROID) 00:00: mcg total) Hospita 25 mcg 00 by mouth l tablet every morning. glimepiride 2021-0 Yes [id number] 1mg QD Take 1 [facility] (AMARYL) 1 6-13 tablet (1 st MG tablet 00:00: mg total) [facility] 00 by mouth l daily before breakfast. cholecalcif 2021-0 Yes [id number] 2000U QD Take 1 [facility], 6-[address] vitamin D3, 00:00: (2,000 [facility] (cholecalci 00 Units l ferol, total) by vitamin mouth D3,) 50 mcg daily. (2,000 Take with unit) food. capsule capsule ferrous 2021-0 2021- No 325mg Q.5D Take 325 Meth patricio sulfate 325 5-26 05-[address] (65 FE) MG 15:30: 00:00 mouth 2 [facility] tablet 00 :00 (two) l times a day. DULoxetine 2021-0 2021- No 60mg QD Take 60 mg [facility] (CYMBALTA) 5-26 05-[address] 60 MG 15:30: 00:00 daily. Hospita capsule 00 :00 l omeprazole 2021-0 2- No 20mg QD Take 20 mg [facility] (PriLOSEC) 5-26 05-[address] 20 MG 15:30: 00:00 daily. Hospita capsule 00 :00 l carvediloL 2021-0 2- No 25mg Q.5D Take 25 mg [facility] (COREG) 25 5-26 05-[address] MG tablet 15:30: 00:00 (two) Hospit a 00 :00 times a l day with meals. lisinopriL 2021-0 2021- No 20mg QD Take 20 mg [facility] (PRINIVIL) 5-26 05-[address] 20 mg 15:30: 00:00 daily. Hospita tablet 00 :00 l amIODarone 2021-0 2021- No 200mg QD Take 200 M [facility] (PACERONE) 5-26 05-[address] 200 MG 15:30: 00:00 mouth Hospita tablet 00 :00 daily. l ferrous 2021-2021- No 325mg Q.5D Take 325 Meth patricio sulfate 325 5-26 05-[address] (65 FE) MG 15:30: 00:00 mouth 2 [facility] tablet 00 :00 (two) l times a day. DULoxetine 2021-2021- No 60mg QD Take 60 mg [facility] (CYMBALTA) 5-26 05-[address] 60 MG 15:30: 00:00 daily. Hospita capsule 00 :00 l omeprazole 2021-0 2021- No 20mg QD Take 20 mg [facility] (PriLOSEC) 5-26 05-[address] 20 MG 15:30: 00:00 daily. Hospita capsule 00 :00 l carvediloL 2021-0 2- No 25mg Q.5D Take 25 mg [facility] (COREG) 25 5-26 05-[address] MG tablet 15:30: 00:00 (two) Hospit a 00 :00 times a l day with meals. lisinopriL 2021-0 2022- No 20mg QD Take 20 mg [facility] (PRINIVIL) 5-26 05-[address] 20 mg 15:30: 00:00 daily. Hospita tablet 00 :00 l amIODarone 2021-2021- No 200mg QD Take 200 M [facility] (PACERONE) 5-26 05-[address] 200 MG 15:30: 00:00 mouth Hospita tablet 00 :00 daily. l carvediloL 2021-2021- No 25mg Q.5D Take 25 mg [facility] (COREG) 25 5-26 05-[address] MG tablet 15:30: 00:00 (two) Hospit a 00 :00 times a l day with meals. lisinopriL 2021-2021- No 20mg QD Take 20 mg [facility] (PRINIVIL) 5-26 05-[address] 20 mg 15:30: 00:00 daily. Hospita tablet 00 :00 l amIODarone 2021-2021- No 200mg QD Take 200 M ethodi [...] :00 times a l day. furosemide 2021-0 2022- No 20mg Q.5D Take 20 mg [facility] (LASIX) 20 5-26 05-[address] mg tablet 14:48: 00:00 (two) Hospit a 09 :00 times a l day. carvediloL 2021-0 Yes [id number] 25mg Q.5D Take 1 M ethodi (COREG) 25 5-26 tablet (25 st MG tablet 00:00: mg total) [facility] 00 by mouth 2 l (two) times a day with meals. DULoxetine 2021-0 Yes [id number] 60mg QD Take 1 [facility] (CYMBALTA) 5-[address] 60 MG 00:00: (60 mg Hospita capsule 00 total) by l mouth daily. ferrous 2021-0 Yes [id number] 325mg Q.5D Take 1 Me [facility] sulfate 325 5-[address] (65 FE) MG 00:00: (325 mg [facility] tablet 00 total) by l mouth 2 (two) times a day. gabapentin 2021-0 Yes [id number] 400mg Q.5D Take 1 [facility] (NEURONTIN) 5-[address] 400 mg 00:00: (400 mg Hospita capsule 00 total) by l mouth 2 (two) times a day. Januvia 50 2021-0 Yes [id number] 50mg QD Take 1 M ethodi mg tablet 5-26 tablet (50 st 00:00: mg total) Hospita 00 by mouth l daily. amIODarone 2021-0 Yes [id number] 200mg QD Take 1 [facility] (PACERONE) 5-[address] 200 MG 00:00: (200 mg Hospita tablet 00 total) by l mouth daily. lisinopriL 2021-0 Yes [id number] 20mg QD Take 1 M ethodi (PRINIVIL) 5-26 tablet (20 st 20 mg 00:00: mg total) Hospita tablet 00 by mouth l daily. omeprazole 2021-0 Yes [id number] 20mg QD Take 1 [facility] (PriLOSEC) 5-[address] 20 MG 00:00: (20 mg Hospita capsule 00 total) by l mouth daily. tamsulosin 2021-0 Yes [id number] .4mg QD Take 1 [facility] (FLOMAX) 5-[address] 0.4 mg 00:00: (0.4 mg Hospita capsule 00 total) by l mouth daily with dinner. traZODone 2021-0 Yes [id number] 100mg QD Take 2-3 [facility] (DESYREL) 5-[address] 50 MG 00:00: (100-150 Hospita tablet 00 mg total) l by mouth nightly as needed for sleep. carvediloL Yes [id number] 25mg Q.5D Take 1 M ethodi (COREG) 25 5-26 tablet (25 st MG tablet 00:00: mg total) [facility] 00 by mouth 2 l (two) times a day with meals. DULoxetine Yes [id number] 60mg QD Take 1 [facility] (CYMBALTA) 5-[address] 60 MG 00:00: (60 mg Hospita capsule 00 total) by l mouth daily. ferrous Yes [id number] 325mg Q.5D Take 1 [facility] sulfate 325 5-[address] (65 FE) MG 00:00: (325 mg [facility] tablet 00 total) by l mouth 2 (two) times a day. gabapentin Yes [id number] 400mg Q.5D Take 1 [facility] (NEURONTIN) 5-[address] 400 mg 00:00: (400 mg Hospita capsule 00 total) by l mouth 2 (two) times a day. Januvia 50 2021-0 Yes [id number] 50mg QD Take 1 M ethodi mg tablet 5-26 tablet (50 st 00:00: mg total) Hospita 00 by mouth l daily. carvediloL Yes [id number] 25mg Q.5D Take 1 M [facility]i (COREG) 25 5-26 tablet (25 st MG tablet 00:00: mg total) [facility] 00 by mouth 2 l (two) times a day with meals. DULoxetine Yes [id number] 60mg QD Take 1 [facility] (CYMBALTA) 5-[address] 60 MG 00:00: (60 mg Hospita capsule 00 total) by l mouth daily. ferrous 2021-0 Yes [id number] 325mg Q.5D Take 1 [facility] sulfate 325 5-[address] (65 FE) MG 00:00: (325 mg [facility] tablet 00 total) by l mouth 2 (two) times a day. gabapentin 2022-0 Yes [id number] 400mg Q.5D Take 1 [facility] (NEURONTIN) 5-[address] 400 mg 00:00: (400 mg Hospita capsule 00 total) by l mouth 2 (two) times a day. Januvia 50 2-0 Yes [id number] 50mg QD Take 1 M ethodi mg tablet 5-26 tablet (50 st 00:00: mg total) Hospita 00 by mouth l daily. amIODarone 2022-0 Yes [id number] 200mg QD Take 1 [facility] (PACERONE) 5-[address] 200 MG 00:00: (200 mg Hospita tablet 00 total) by l mouth daily. lisinopriL 2-0 Yes [id number] 20mg QD Take 1 M [facility]i (PRINIVIL) 5-26 tablet (20 st 20 mg 00:00: mg total) Hospita tablet 00 by mouth l daily. amIODarone 2021-0 Yes [id number] 200mg QD Take 1 [facility] (PACERONE) 5-[address] 200 MG 00:00: (200 mg Hospita tablet 00 total) by l mouth daily. omeprazole 2-0 Yes [id number] 20mg QD Take 1 [facility] (PriLOSEC) 5-[address] 20 MG 00:00: (20 mg Hospita capsule 00 total) by l mouth daily. tamsulosin 2-0 Yes [id number] .4mg QD Take 1 [facility] (FLOMAX) 5-[address] 0.4 mg 00:00: (0.4 mg Hospita capsule 00 total) by l mouth daily with dinner. lisinopriL 2022-0 Yes [id number] 20mg QD Take 1 M [facility]i (PRINIVIL) 5-26 tablet (20 st 20 mg 00:00: mg total) Hospita tablet 00 by mouth l daily. omeprazole 2022-0 Yes [id number] 20mg QD Take 1 [facility] (PriLOSEC) 5-[address] 20 MG 00:00: (20 mg Hospita capsule 00 total) by l mouth daily. tamsulosin 2022-0 Yes [id number] .4mg QD Take 1 [facility] (FLOMAX) 5-[address] 0.4 mg 00:00: (0.4 mg Hospita capsule 00 total) by l mouth daily with dinner. traZODone 2021-2021- No [id number] 100mg QD Take 2-3 [facility] (DESYREL) 5-26 10-[address] 50 MG 00:00: 00:00 (100-150 Hospita tablet 00 :00 mg total) l by mouth nightly as needed for sleep. traZODone 2021-2021- No [id number] 100mg QD Take 2-3 [facility] (DESYREL) 5-26 10-[address] 50 MG 00:00: 00:00 (100-150 Hospita tablet 00 :00 mg total) l by mouth nightly as needed for sleep. gabapentin 2021-2021- No 400mg Q.5D Take 400 M [facility]i (NEURONTIN) 5-09 05-[address] 400 mg 00:00: 00:00 mouth 2 Hospita capsule 00 :00 (two) l times a day. gabapentin 2021- No 400mg Q.5D Take 400 M [facility] (NEURONTIN) 5-09 05-[address] 400 mg 00:00: 00:00 mouth 2 Hospita capsule 00 :00 (two) l times a day. gabapentin 2021- No 400mg Q.5D Take 400 M [facility]i (NEURONTIN) 5-09 05-[address] 400 mg 00:00: 00:00 mouth 2 Hospita capsule 00 :00 (two) l times a day. tamsulosin 2021-0 2- No .4mg QD Take 0.4 Me [facility] (FLOMAX) 5-05 05-[address] 0.4 mg 00:00: 00:00 mouth Hospita capsule 00 :00 daily with l dinner. tamsulosin 2021-0 2- No .4mg QD Take 0.4 [facility] (FLOMAX) 5-05 05-[address] 0.4 mg 00:00: 00:00 mouth Hospita capsule 00 :00 daily with l dinner. tamsulosin 2021-0 2- No .4mg QD Take 0.4 Me [facility] (FLOMAX) 5-05 05-[address] 0.4 mg 00:00: 00:00 mouth Hospita capsule 00 :00 daily with l dinner. spironolact 2021-0 2022- No Metho di one 06-02 st (ALDACTONE) 00:00: 00:00 Hospi ta 25 MG 00 :00 l tablet spironolact 2021-0 2022- No Metho di one 06-02- st (ALDACTONE) 00:00: 00:00 Hospi ta 25 MG 00 :00 l tablet spironolact 2021-0 2022- No Metho di one 06-02 st (ALDACTONE) 00:00: 00:00 Hospi ta 25 MG 00 :00 l tablet Januvia 50 2021-0 2022- No 50mg QD Take 50 mg [facility] mg tablet 06-[address] 00:00: 00:00 daily. Hospita 00 :00 l Januvia 50 2022-0 2022- No 50mg QD Take 50 mg [facility] mg tablet 06-[address] 00:00: 00:00 daily. Hospita 00 :00 l Januvia 50 2-0 2022- No 50mg QD Take 50 mg [facility] mg tablet 06-[address] 00:00: 00:00 daily. Hospita 00 :00 l FreeStyle 2022-0 Yes [facility] Lite Strips 4-16 st strip test 00:00: Hospita strips 00 l FreeStyle 2022-0 Yes [facility] Lite Strips 4-16 st strip test 00:00: Hospita strips 00 l FreeStyle 2022-0 Yes [facility] Lite Strips 4-16 st strip test 00:00: Hospita strips 00 l traZODone 2022-0 2022- No 100mg QD Take [facility] (DESYREL) 04-08 100-[address] 50 MG 00:00: 00:00 by mouth Hospita tablet 00 :00 nightly as l needed for sleep. traZODone 2022-0 2022- No 100mg QD Take [facility] (DESYREL) 04-08- 100-[address] 50 MG 00:00: 00:00 by mouth Hospita tablet 00 :00 nightly as l needed for sleep. traZODone 2022-0 2022- No 100mg QD Take [facility] (DESYREL) 3-04 05-26 100-[address] 50 MG 00:00: 00:00 [...] Source Body height 2022-01-27 16:16:00 172.7 cm [facility] Body weight 2022-01-27 16:16:00 77.565 kg [facility] BMI 2022-01-27 16:16:00 26.00 kg/m2 [facility] Heart rate 2022-01-11 19:00:00 62 /min [facility] Respiratory rate 2022-01-11 19:00:00 15 /min [facility] Oxygen saturation in 2022-01-11 19:00:00 95 /min [facility] Arterial blood by [facility] Pulse oximetry Branch Systolic blood 2022-01-11 18:00:00 145 mm[Hg] Clive kim [facility] Diastolic blood 2022-01-11 18:00:00 73 mm[Hg] [facility] Body temperature 2022-01-11 18:00:00 36.67 Kathya [facility] Body weight 2022-01-11 02:00:00 77.973 kg [facility] BMI 2022-01-11 02:00:00 26.14 kg/m2 [facility] Body height 2022-01-09 17:30:00 172.7 cm [facility] [place] [facility] Systolic blood 2022-01-09 16:50:00 145 mm[Hg] [facility] [place] [facility] Diastolic blood 2022-01-09 16:50:00 76 mm[Hg] [facility] [place] [facility] Heart rate 2022-01-09 16:50:00 80 /min [facility] [place] [facility] Respiratory rate 2022-01-09 16:50:00 13 /min [facility] [place] [facility] Oxygen saturation in 2022-01-09 16:50:00 95 /min [facility] Arterial blood by [place] [facility] Pulse oximetry Branch Body temperature 2022-01-09 16:14:00 36.72 Kathya [facility] [place] [facility] Body weight 2022-01-02 20:00:00 76.204 kg [facility] [place] [facility] BMI 2022-01-02 20:00:00 26.47 kg/m2 [facility] [place] [facility] Systolic blood 2021-12-26 15:51:00 163 mm[Hg] [facility] [place] [facility] Diastolic blood 2021-12-26 15:51:00 95 mm[Hg] [facility] [place] [facility] Heart rate 2021-12-26 15:50:00 64 /min [facility] [place] [facility] Body temperature 2021-12-26 15:50:00 36.56 Kathya [facility] [place] [facility] Body height 2021-12-26 15:50:00 172.7 cm [facility] [place] [facility] Body weight 2021-12-26 15:50:00 71.215 kg [facility] [place] [facility] BMI 2021-12-26 15:50:00 23.87 kg/m2 [facility] [place] [facility] Oxygen saturation in 2021-12-26 15:50:00 99 /min [facility] Arterial blood by [place] [facility] Pulse oximetry Branch Systolic blood 2021-12-19 20:16:00 152 mm[Hg] Univer sity of pressure [facility] Diastolic blood 2021-12-19 20:16:00 83 mm[Hg] Unive rsity of pressure [facility] Heart rate 2021-12-19 20:16:00 66 /min [facility] Oxygen saturation in 2021-12-19 20:16:00 97 /min University Arterial blood by [facility] Pulse oximetry Branch Body temperature 2021-12-19 20:15:00 36.83 Kathya Univ [facility] Respiratory rate 2021-12-19 20:15:00 17 /min Univ [facility] Body height 2021-12-19 20:15:00 172.7 cm Per Pt [facility] Body weight 2021-12-19 20:15:00 71.532 kg [facility] BMI 2021-12-19 20:15:00 23.98 kg/m2 [facility] Systolic blood 2021-12-14 19:50:00 152 mm[Hg] Univer sity of pressure [facility] Diastolic blood 2021-12-14 19:50:00 87 mm[Hg] Unive rsity of pressure [facility] Heart rate 2021-12-14 19:50:00 62 /min [facility] Respiratory rate 2021-12-14 19:50:00 18 /min Univ [facility] Body height 2021-12-14 19:49:00 172.7 cm [facility] Body weight 2021-12-14 19:49:00 77.111 kg [facility] BMI 2021-12-14 19:49:00 25.85 kg/m2 [facility] Systolic blood 2021-11-28 20:54:00 166 mm[Hg] Univer sity of pressure [facility] Diastolic blood 2021-11-28 20:54:00 84 mm[Hg] Unive rsity of pressure [facility] Heart rate 2021-11-28 20:53:00 61 /min [facility] Body temperature 2021-11-28 20:53:00 37.11 Kathya [facility] Body height 2021-11-28 20:53:00 172.7 cm [facility] Body weight 2021-11-28 20:53:00 71.215 kg [facility] BMI 2021-11-28 20:53:00 23.87 kg/m2 [facility] Oxygen saturation in 2021-11-28 20:53:00 99 /min University of Arterial blood by [facility] Pulse oximetry Branch Systolic blood 2021-11-01 18:08:00 133 mm[Hg] Univer [facility]ity of pressure [facility] Diastolic blood 2021-11-01 18:08:00 70 mm[Hg] Unive rsity of pressure [facility] Heart rate 2021-11-01 18:08:00 64 /min Universi ty of [facility] Body temperature 2021-11-01 18:08:00 37.28 Kathya [facility] ersity of [facility] Respiratory rate 2021-11-01 18:08:00 12 /min Univ ersity of [facility] Body height 2021-11-01 18:08:00 172.7 cm Universi ty of [facility] Body weight 2021-11-01 18:08:00 71.532 kg [facility] BMI 2021-11-01 18:08:00 23.98 kg/m2 Universi ty [facility] Oxygen saturation in 2021-11-01 18:08:00 98 /min University of Arterial blood by [facility] Pulse oximetry Branch Systolic blood 2021-09-02 15:10:00 129 mm[Hg] Univer sity of pressure [facility] Diastolic blood 2021-09-02 15:10:00 63 mm[Hg] Unive [facility] of [facility] Heart rate 2021-09-02 15:10:00 63 /min [facility] Systolic blood 2021-09-02 15:10:00 129 mm[Hg] Univer sity of pressure [facility] Diastolic blood 2021-09-02 15:10:00 63 mm[Hg] Unive rsity of pressure [facility] Heart rate 2021-09-02 15:10:00 63 /min Universi ty of [facility] Systolic blood 2021-07-18 20:46:00 106 mm[Hg] Method ist [facility] pressure Diastolic blood 2021-07-18 20:46:00 66 mm[Hg] [facility] pressure Heart rate 2021-07-18 20:46:00 65 /min [facility] Res[facility] rate 2021-07-18 20:46:00 18 /min [facility] Body height 2021-07-18 20:46:00 172.7 cm [facility] Body weight 2021-07-18 20:46:00 74.027 kg [facility] BMI 2021-07-18 20:46:00 24.81 kg/m2 [facility] Oxygen saturation in 2021-07-18 20:46:00 97 /min Arterial blood by Pulse oximetry Procedures Procedure Date / Time Performing Source Performed Clinician EXTERNAL PROVIDER RECORDS 2022-02-16 06:01:00 Doctor Unassigned, [facility] Branch COVID-19 (ID NOW RAPID 2022-01-11 18:27:00 Tatyana Sweeney [facility] TESTING) [facility] Er POCT GLUCOSE (AUTOMATED) 2022-01-11 17:40:00 Tatyana Sweeney [facility] POCT GLUCOSE (AUTOMATED) 2022-01-11 13:58:00 Tatyana Sweeney [facility] MAGNESIUM 2022-01-11 11:49:00 Tatyana Sweeney [facility] BASIC METABOLIC PANEL (NA, 2022-01-11 11:49:00 Tatyana Sweeney [facility] K, CL, CO2, GLUCOSE, BUN, Medica l Branch CREATININE, CA) CBC WITH DIFF 2022-01-11 11:49:00 Tatyana Sweeney [facility] POCT GLUCOSE (AUTOMATED) 2022-01-11 03:02:00 Tatyana Sweeney [facility] TROPONIN I 2022-01-10 22:49:00 Tatyana Sweeney [facility] TROPONIN I 2022-01-10 22:49:00 Tatyana Sweeney [facility] POCT GLUCOSE (AUTOMATED) 2022-01-10 22:16:00 Tatyana Sweeney [facility] POCT GLUCOSE (AUTOMATED) 2022-01-10 22:16:00 Tatyana Sweeney [facility] TROPONIN I 2022-01-10 19:58:00 Tatyana Sweeney [facility] TROPONIN I 2022-01-10 19:58:00 Tatyana Sweeney [facility] POCT GLUCOSE (AUTOMATED) 2022-01-10 19:54:00 Tatyana Sweeney [facility] TRANSTHORACIC ECHO (TTE) 2022-01-10 19:53:41 Tatyana Sweeney [facility] TRANSTHORACIC ECHO (TTE) 2022-01-10 19:53:41 Tatyana Sweeney [facility] POCT GLUCOSE (AUTOMATED) 2022-01-10 13:34:00 Tatyana Sweeney [facility] POCT GLUCOSE (AUTOMATED) 2022-01-10 13:34:00 Tatyana Sweeney [facility] CBC WITH DIFF 2022-01-10 09:52:00 Suki Kirkpatrick [facility] CBC WITH DIFF 2022-01-10 09:52:00 Suki Kirkpatrick [facility] POCT GLUCOSE (AUTOMATED) 2022-01-10 06:02:00 Tatyana Sweeney [facility] POCT GLUCOSE (AUTOMATED) 2022-01-10 06:02:00 Tatyana Sweeney [facility] URINALYSIS 2022-01-10 04:07[facility]-10 [facility]:07[facility] 2022-01-10 04:07:00 [facility] MRSA / MSSA SCREEN BY PCR, 2022-01-10 04:06:00 Suki Kirkpatrick [facility] POCT GLUCOSE (AUTOMATED) 2022-01-10 02:49:00 Tatyana Sweeney [facility] POCT GLUCOSE (AUTOMATED) 2022-01-10 02:49:00 Tatyana Sweeney [facility] POCT GLUCOSE (AUTOMATED) 2022-01-09 17:38:00 Tatyana Sweeney [facility] POCT GLUCOSE (AUTOMATED) 2022-01-09 17:38:00 Tatyana Sweeney [facility] XR HIP 1 VW BILATERAL 2022-01-09 17:05:11 Suki Kirkpatrick [facility] XR HIP 1 VW BILATERAL 2022-01-09 17:05:11 Suki Kirkpatrick [facility] HB ABO GROUPING 2022-01-09 13:22:00 Suik Kirkpatrick [facility] HB ABO GROUPING 2022-01-09 13:22:00 Suki Kirkpatrick [facility] TOTAL HIP ARTHROPLASTY 2022-01-09 13:17:00 Suki Kirkpatrick Uni [facility] TOTAL HIP ARTHROPLASTY 2022-01-09 13:17:00 Suki Kirkpatrick [facility] POCT GLUCOSE (AUTOMATED) 2022-01-09 13:10:00 Suki Kirkpatrick [facility] POCT GLUCOSE (AUTOMATED) 2022-01-09 13:10:00 Suki Kirkpatrick [facility] DAY SURGERY - ADC 2022-01-09 06:01:00 Doctor Jl [facility] URINALYSIS 2022-01-06 15:52:00 Suki Kirkpatrick [facility] CBC WITH DIFF 2022-01-06 15:48:00 Suki Kirkpatrick [facility] BASIC METABOLIC PANEL (NA, 2022-01-06 15:43:00 Suki Kirkpatrick [facility] K, CL, CO2, GLUCOSE, BUN, Medica l Branch CREATININE, CA) XR CHEST 2 VW 2022-01-06 15:09:00 Suki Kirkpatrick [facility] ASSIGNMENT OF BENEFITS 2022-01-06 14:45:12 Doctor Jl, [facility] EXTERNAL PROVIDER RECORDS 2021-12-28 06:01:00 Doctor Jl [facility] DSU PRE-OP 2021-12-28 06:01:00 Doctor Jl, [facility] EXTERNAL PROVIDER RECORDS 2021-12-28 06:01:[address] [facility] Name [facility] DSU PRE-OP 2021-12-28 06:01:00 Doctor Jl, [facility] XR CERVICAL SPINE 2 VW 2021-11-01 19:00:00 [facility] RETICULOCYTE COUNT, 2021-07-21 21:37:00 Edgardo García [facility] AUTOMATED CBC WITH PLATELET AND 2021-07-21 21:37:00 Raquel, [facility] DIFFERENTIAL TOTAL IRON BINDING CAPACITY 2021-07-21 21:37:00 Urania, [facility] FOLATE LEVEL 2021-07-21 21:37:00 Urania, [facility] HEPATITIS B SURFACE ANTIBODY 2021-07-21 21:37:00 [facility] HIV 1/2 ANTIGEN/ANTIBODY, 2021-07-21 21:37:00 Urania, [facility] FOURTH GENERATION W/RFL POTASSIUM LEVEL 2021-07-21 21:37:00 Urania, [facility] GGT 2021-07-21 21:37:00 Urania, [facility] VITAMIN B12 LEVEL 2021-07-21 21:37:00 Urania, [facility] FERRITIN LEVEL 2021-07-21 21:37:00 Urania, [facility] HEPATITIS B SURFACE ANTIGEN 2021-07-21 21:37:00 Urania, [facility] HEPATITIS A ANTIBODY TOTAL 2021-07-21 21:37:00 Urania, [facility] ANTINUCLEAR ANTIBODIES (ERIK) 2021-07-21 21:37:00 Urania, [facility] WITH REFLEX TO TITER AND PATTERN, IMMUNOFLUORESCENCE CORTISOL LEVEL, PM 2021-07-21 21:37:00 [facility] ALPHA-1 ANTITRYPSIN LEVEL 2021-07-21 21:37:00 Urania, [facility] HEMOGLOBINOPATHY 2021-07-21 21:37:00 Urania, [facility] FRACTIONATION CASCADE ANTI-SMOOTH MUSCLE ANTIBODY 2021-07-21 21:37:00 Urania, [facility] ANTI MITOCHONDRIA SCREEN 2021-07-21 21:37:00 [facility] VITAMIN B1 LEVEL, WHOLE 2021-07-21 21:37:00 Urania, [facility] BLOOD CBC WITH PLATELET AND 2021-07-01 14:37:00 Urania, [facility] DIFFERENTIAL COMPREHENSIVE METABOLIC 2021-07-01 14:37:00 Urania, [facility] PANEL LIPID PANEL 2021-07-01 14:37:00 [facility] MICROALBUMIN / CREATININE 2021-07-01 14:37:00 [facility] URINE RATIO HEMOGLOBIN A1C 2021-07-01 14:37:00 [facility] VITAMIN D 25 HYDROXY LEVEL 2021-07-01 14:37:00 [facility] TSH WITH REFLEX TO FREE T4 2021-07-01 14:37:00 [facility] T4 FREE (EVERT HIST) 2021-07-01 14:37:00 [facility] Plan of Care Planned Activity Planned Date Details Comments Source Future Scheduled 2022-01-17 COVID-19 VACCINE (#1) [facility] Test 10:42:26 [code = COVID-19 VACCINE (#1)] Future Scheduled 2022-01-17 65+ PNEUMOCOCCAL [facility] Hospital Test 10:42:26 VACCINE (1 - PCV) [code = 65+ PNEUMOCOCCAL VACCINE (1 - PCV)] Future Scheduled 2022-01-17 DIABETES: RETINAL EYE [facility] Test 10:42:26 EXAM [code = DIABETES: RETINAL EYE EXAM] Future Scheduled 2022-01-17 DIABETIC FOOT EXAM [facility] Test 10:42:26 [code = DIABETIC FOOT EXAM] Future Scheduled 2022-01-17 Hepatitis C screening [facility] Test 10:42:26 (procedure) [code = 856724006] Future Scheduled 2022-01-17 SHINGLES VACCINES (1 [facility] Test 10:42:26 of 2) [code = SHINGLES VACCINES (1 of 2)] Future Scheduled 2022-01-17 COLONOSCOPY SCREENING [facility] Test 10:42:26 [code = COLONOSCOPY SCREENING] Future Scheduled 2022-01-17 INFLUENZA VACCINE [facility] Test 10:42:26 [code = INFLUENZA VACCINE] Future Scheduled 2022-01-17 COVID-19 VACCINE (#1) [facility] Test 10:42:26 [code = COVID-19 VACCINE (#1)] Future Scheduled 2022-01-17 65+ PNEUMOCOCCAL [facility] Hospital Test 10:42:26 VACCINE (1 - PCV) [code = 65+ PNEUMOCOCCAL VACCINE (1 - PCV)] Future Scheduled 2022-01-17 DIABETES: RETINAL EYE [facility] Hospital Test 10:42:26 EXAM [code = DIABETES: RETINAL EYE EXAM] Future Scheduled 2022-01-17 DIABETIC FOOT EXAM [facility] Hospital Test 10:42:26 [code = DIABETIC FOOT EXAM] Future Scheduled 2022-01-17 Hepatitis C screening [facility] Test 10:42:26 (procedure) [code = 407080752] Future Scheduled 2022-01-17 SHINGLES VACCINES (1 [facility] Test 10:42:26 of 2) [code = SHINGLES VACCINES (1 of 2)] Future Scheduled 2022-01-17 COLONOSCOPY SCREENING [facility] Test 10:42:26 [code = COLONOSCOPY SCREENING] Future Scheduled 2022-01-17 INFLUENZA VACCINE [facility] Test 10:42:26 [code = INFLUENZA VACCINE] Future Scheduled 2021-10-04 HEPATITIS B VACCINES [facility] Test 14:25:14 (1 of 3 - 3-dose series) [code = HEPATITIS B VACCINES (1 of 3 - 3-dose series)] Future Scheduled 2021-10-04 COVID-19 VACCINE (#1) [facility] Test 14:25:14 [code = COVID-19 VACCINE (#1)] Future Scheduled 2021-10-04 65+ P[facility]UMOCOCCAL [facility] Test 14:25:14 VACCINE (1 - PCV) [code = 65+ PNEUMOCOCCAL VACCINE (1 - PCV)] Future Scheduled 2021-10-04 DIABETES: RETINAL EYE [facility] Test 14:25:14 EXAM [code = DIABETES: RETINAL EYE EXAM] Future Scheduled 2021-10-04 DIABETIC FOOT EXAM [facility] Hospital Test 14:25:14 [code = DIABETIC FOOT EXAM] Future Scheduled 2021-10-04 Hepatitis C screening [facility] Test 14:25:14 (procedure) [code = [id number]] Future Scheduled 2021-10-04 SHINGLES VACCINES (1 [facility] Test 14:25:14 of 2) [code = SHINGLES VACCINES (1 of 2)] Future Scheduled 2021-10-04 COLONOSCOPY SCREENING [facility] Test 14:25:14 [code = COLONOSCOPY SCREENING] Future Scheduled 2021-10-04 INFLUENZA VACCINE [facility] Test 14:25:14 [code = INFLUENZA VACCINE] Encounters Start End Encounter Admission Attending Care Care Encounter Source Date/Time Date/Time Type Type Clinicians Facility Department ID 2022-12-19 2022-12-19 Outpatient R SERGIO [facility] [id number] Univers 14:00:00 14:00:00 APURVA daniel o f [facility] 2022-02-16 2022-02-16 [facility] [id number] Univers 11:40:00 11:40:00 ARIANE ity [facility] 2022-02-16 2022-02-16 Orders Doctor ROBEL [id number] Univers 00:00:00 00:00:00 Only Unassigned, [place] [id number] ity of [facility] [id number] Harshad as [phone] [address] 2022-01-27 2022-01-27 [facility] [id number] Univers 10:30:00 10:49:43 SUKI sanchez [facility] 2022-01-27 2022-01-27 Office Alma Rosa Carrera [facility] [id number] Univers 10:30:00 10:45:00 Visit Suki Kirkpatrick [employer] [id number] itbaron [facility] [id number] Harshad as MARGI?BLEA [phone] Ms sonya [facility] [address] MEDICAL OFFICE BUILDING 2022-01-26 2022-01-26 [facility] [id number] Univers 10:00:00 10:00:00 KVNG sanchez [facility] 2022-01-12 2022-01-[address] [facility] [id number] Univers 00:00:00 00:00:00 Outreach Nelia Reyes [employer] [id number] i ty of [place] [id number] Harshad as MARGI?BLEA [id number] Ms coleenmn [address] MEDICAL OFFICE BUILDING 2022-01-12 2022-01-[address] [facility] [id number] Univers 00:00:00 00:00:00 [facility] [id number] ity of [facility] [id number] Harshad as MARGI?BLEA [id number] Ms sonya [place] [address] [place] [address] MEDICAL OFFICE BUILDING 2022-01-09 2022-01-11 Outpatient R KAYA [facility] [id number] Univers 06:55:00 14:17:00 SUKI alonzobaron [facility] 2022-01-09 2022-01-11 [facility] Kirkpatrick Suki Amy [facility] 1.2.840 .114 [id number] Univers 06:55:00 14:17:00 Encounter Tatyana Sweeney [id number] ity of [facility] [place]7.[place] [phone] [facility] [address] 2022-01-09 2022-01-09 [facility] [id number] Univers 07:25:00 10:50:00 Suki SNELL [id number] i ty of [facility] [id number] [id number] [facility] [address] 2022-01-09 2022-01-09 Orders Doctor ROBEL [id number] [id number] Univers 00:00:00 00:00:00 Only Unassigned, [place] [id number] ity of [facility] 4.2.7.2.686 Harshad as [id number] [facility] [address] 2022-01-06 2022-01-06 Outpatient R KAYA [facility] [id number] Univers 08:47:08 23:59:00 SUKI sanchez [facility] 2022-01-06 2022-01-06 [facility] [id number] Univers 10:15:00 10:15:00 SUKI sanchez [facility] 2022-01-06 2022-01-06 [facility] 1.2.840.114 [id number] Univers 08:30:00 08:46:00 Encounter Suki SNELL [id number] ity of [place] [id number] [facility] [address] 2022-01-06 2022-01-06 Dock Pumper Lucie Larry Lab Main [facility] 1.2.8 40.114 [id number] Univers 08:00:00 08:15:00 Visit Suki Kirkpatrick [place] [id number] ity of [facility] [place].2.7.2.[place] [phone] Me dical NAL 353 [facility] 2022-01-06 2022-01-06 Orders Doctor ROBEL 1.2.840.114 [id number] Univers 00:00:00 00:00:00 Only Unassigned, [place] 350.1.13.10 ity of [facility] 4.2.7.2.686 Harshad as [id number] [facility] [address] 2022-01-06 2022-01-[address] [facility] 1.2.840.114 [id number] Univers 00:00:00 00:00:00 Management [place] [id number] ity of Leticia [facility] [id number] [phone] Ms dical NAL 179 [facility] 2022-01-03 2022-01-03 Outpatient R NAILA GIRALDO [facility] [id number] Univers 13:30:00 13:30:[address] [facility] 2022-01-02 2022-01-[address] [facility] 1.2.840.114 [id number] Univers 00:00:00 00:00:00 Outreach Nelia [facility] [id number] i ty of [place] 4.2.7.2.686 Harshad as MARGI?BLEA [id number] Ms dical DARIN [address] MEDICAL OFFICE BUILDING 2021-12-26 2021-12-26 Outpatient R YINA [facility] [id number] Univers 10:00:00 10:38:10 KVNG sanchez [facility] 2021-12-26 2021-12-[address] [facility] 1.2.840.114 [id number] Univers 10:00:00 10:38:10 Visit [facility] [id number] ity of [place] 4.2.7.2.686 Harshad as MARGI?BLEA [phone] Ms sonya [facility] [address] [facility] OFFICE [facility] 2021-12-26 2021-12-26 Prep [facility] 1.2.840.114 [id number] Univers 00:00:00 00:00:00 [facility] 350.1.13.10 it y of [place] 4.2.7.2.686 Harshad as MARGI?BLEA [id number] Ms sonya [place] [address] [facility] OFFICE [facility] 2021-12-26 2021-12-26 Telephone [facility] [id number] Univers 00:00:00 00:00:00 [facility] [id number] ity of [facility] 4.2.7.2.686 Harshad as MARGI?BLEA [id number] Ms sonya WE[place] [place] [address] OFFICE [facility] 2021-12-26 2021-12-[address] [facility] 1.2.840.114 [id number] Univers 00:00:00 00:00:00 Outreach Noy R [place] [id number] ity of [facility] [place].2.7.2.[place] [id number] Ms sonya HENDERSON [address] [place] [address] 2021-12-21 2021-12-21 Outpatient R YINA [facility] [id number] Univers 13:30:00 13:30:00 KVNG itbaron [facility] 2021-12-20 2021-12-20 Telephone [facility] [id number] Univers 00:00:00 00:00:00 Alma Rosa S HEALTH [id number] it y of [place] 4.2.7.2.686 Harshad as MARGI?BLEA [id number] Ms sonya WE[place]STER [address] [place] [address] OFFICE [facility] 2021-12-19 2021-12-19 Outpatient R SERGIO [facility] [id number] Univers 14:00:00 14:42:54 APURVA arguelles [facility] 2021-12-192021-12-19 Office [facility] 1.2.840.114 [id number] Univers 14:00:00 14:42:54 Visit Apurva SNELL 350.1.13.10 ity of [facility] [place].2.7.2.[place] [id number] Me dical NAL 059 [facility] 2021-12-19 2021-12-19 Letter [facility] 1.2.840.114 [id number] Univers 00:00:00 00:00:00 (Out) Alma Rosa S HEALTH 350.1.13.10 it y of [place] 4.2.7.2.686 Harshad as MARGI?BLEA [phone] Me dical DARIN 198 [facility] OFFICE [facility] 2021-12-19 2021-12-19 Welch [facility] [id number] Univers 00:00:00 00:00:00 Alma Rosa S HEALTH [id number] it y of [place] 4.2.7.2.686 Harshad as MARGI?BLEA [id number] Me dical KNRICHARD [address] [facility] OFFICE [facility] 2021-12-15 2021-12-15 Welch [facility] [id number] Univers 00:00:00 00:00:00 Alma Rosa S HEALTH [id number] it y of [place] 4.2.7.2.686 Harshad as MARGI?BLEA [id number] Ms diccan [facility] [address] [facility] OFFICE [facility] 2021-12-14 2021-12-14 Outpatient Sarah CARRERA [facility] [id number] Univers 13:30:00 15:49:56 ALMA ROSA ity of [facility] 2021-12-14 2021-12-14 Office [facility] 1.2.840.114 [id number] Univers 13:30:00 15:49:56 Visit Alma Rosa S HEALTH 350.1.13.10 it y of [place] 4.2.7.2.686 Harshad as MARGI?BLEA [id number] Ms dical DARIN [address] [facility] OFFICE [facility] 2021-12-06 2021-12-06 Outpatient R DEANDRE [facility] [id number] Univers 13:30:00 13:30:00 ALMA ROSA ity [facility] 2021-12-05 2021-12-05 [facility] 1.2.840.114 [id number] Univers 00:00:00 00:00:00 [facility] 350.1.13.10 ity [facility] 4.2.7.2.686 Harshad as MARGI?BLEA [phone] [address] OFFICE [facility] 2021-12-04 2021-12-04 Refill Urania, 1.2.840.1 [id number] Methodi 00:00:00 00:00:[address] 3.430.2.7 Hospit a .3.759957 l .8 2021-12-04 2021-12-04 Refill Raquel, 1.2.840.1 [id number] Methodi 00:00:00 00:00:[address] 3.430.2.7 Hospit a .3.159302 l .8 2021-11-30 2021-11-30 [facility]phone [facility] 1.2.973.308 7236 4968 Univers 00:00:00 00:00:00 [facility] 350.1.13.10 ity [facility] 4.2.7.2.686 Harshad as MARGI?BLEA [phone] [address] OFFICE [facility] 2021-11-28 2021-11-28 [facility] [id number] Univers 15:20:00 16:42:20 [facility] 2021-11-28 2021-11-28 Office [facility] 1.2.840.114 [id number] Univers 15:20:00 16:42:20 Visit [facility] 350.1.13.10 ity [facility] 4.2.7.2.686 Harshad as MARGI?BLEA [phone] [address] OFFICE [facility] 2021-11-25 2021-11-25 Telephone Raquel, 1.2.840.1 [id number] 068 [id number] Methodi 00:00:00 00:00:[address] 3.430.2.7 Hospit a .3.516500 l .8 2021-11-25 2021-11-25 Telephone Raquel, 1.2.840.1 [id number] [id number] Methodi 00:00:00 00:00:[address] 3.430.2.7 Hospit a .3.028651 l .8 2021-11-25 2021-11-25 [facility]phone [facility] 1.2.840.114 [id number] [id number] Univers 00:00:00 00:00:00 [facility] 350.1.13.10 ity of [place] 4.2.7.2.686 Harshad as MARGI?BLEA [phone] [address] OFFICE BUILDING 2021-11-25 2021-11-25 [facility]phone [facility] 1.2.529.855 1173 2875 Univers 00:00:00 00:00:00 [facility] 350.1.13.10 it y of [place].7.2.[place] VAZQUEZ [phone] [address] OFFICE BUILDING 2021-11-24 2021-11-24 Outpatient [facility] [id number] Univers 11:00:00 11:00:[address] [facility] [place] [place] 2021-11-15 2021-11-15 Outpatient Sarah [facility] [id number] Univers 10:30:00 10:30:[address] [facility] [place] [place] 2021-11-15 2021-11-15 Travel 1.2.840.1 1.2.341.288 5524 [id number] Methodi 00:00:00 00:00:[address] 3.430.2.7 0.2.7.3.698 Ho spita .3.798516 084.8 l .8 2021-11-15 2021-11-15 Travel 1.2.840.1 1.2.250.089 8927 498924 Methodi 00:00:00 00:00:[address] 3.430.2.7 0.2.7.3.698 Ho spita .3.518436 084.8 l .8 2021-11-14 2021-11-14 Telephone [facility] 1.2.840.114 [id number] Univers 00:00:00 00:00:00 [facility] 350.1.13.10 it y of [place] 4.2.7.2.686 Harshad as MARGI?BLEA [phone] [facility] 198 [facility] 2021-11-08 2021-11-08 Telephone [facility] 1.2.840.114 [id number] Univers 00:00:00 00:00:00 [facility] 350.1.13.10 ity of [place] 4.2.7.2.686 Harshad as MARGI?BLEA [phone] Ms sonya [address] 2021-11-07 2021-11-07 Telephone Raquel, 1.2.840.1 [id number] 254 [id number] Methodi 00:00:00 00:00:[address] 3.430.2.7 Hospit a .3.926642 l .8 2021-11-07 2021-11-07 Telephone Raquel, 1.2.840.1 [id number] 117 [id number] Methodi 00:00:00 00:00:[address] 3.430.2.7 Hospit a .3.253665 l .8 2021-11-04 2021-11-04 Outpatient ERIC WRIGHT [facility] [id number] Univers 14:40:00 14:40:00 ERIC COLE baron [facility] 2021-11-04 2021-11-04 Outpatient ERIC WRIGHT [facility] [id number] Univers 14:40:00 14:40:00 ERIC COLE [facility] 2021-11-012021-11-01 Outpatient R ENZO, NAILA [facility] [id number] Univers 13:40:00 23:59:00 NAILA GIRALDO of [facility] 2021-11-01 2021-11-[address] [facility] 1.2.840.114 [id number] Univers 13:40:00 23:59:00 Encounter Naila [facility]ALTH 350.1.13.10 [place] [phone] [facility] [address] ([facility]) 2021-11-01 2021-11-01 Office Enzo, [facility] 1.2.840.114 [id number] Univers 13:00:00 13:38:24 Visit Naila HEALTH 350.1.13.10 it y [place] [phone] [address] OFFICE BUILDING 2021-10-24 2021-10-[address] [facility] 1.2.118.469 [id number] [id number] Univers 00:00:00 00:00:00 Naila HEALTH 350.1.13.10 it y [place] [phone] [address] OFFICE BUILDING 2021-10-24 2021-10-[address] [facility] 1.2.965.785 [id number] 1227 Univers 00:00:00 00:00:00 Naila HEALTH 350.1.13.10 it y [place] [phone] [address] OFFICE BUILDING 2021-10-18 2021-10-18 Outpatient R ENZO NAILA [facility] [id number] Univers 11:00:00 11:00:00 NAILA GIRALDO [facility] 2021-10-17 2021-10-[address] [facility] 1.2.105.970 [id number] Univers 00:00:00 00:00:00 Naila HEALTH 350.1.13.10 it [place] [phone] [address] OFFICE BUILDING 2021-10-13 2021-10-13 Orders Doctor ROBEL 1.2.840.114 [id number] Univers 00:00:00 00:00:00 Only Unassigned, [place] 350.1.13.10 ity of [facility] 4.2.7.2.686 Harshad as [phone] [facility] [address] 2021-10-06 2021-10-06 Transition BREE Gonzalez 1.2.840.114 [id number] [id number] Univers 00:00:00 00:00:00 of Care Mamta ALEXANDRE 350.1.13.10 it y of [place].2.[place] [phone] [facility] [address] 2021-09-22 2021-10-05 Inpatient X NAILA GIRALDO [facility] 1 [id number] Univers 04:18:00 18:35:00 NAILA GIRALDO ity of [facility] 2021-09-22 2021-10-05 [facility] MilagroalRolando 1.2.840. 114 [id number] Univers 04:18:00 18:35:00 Encounter Naila Giraldo 350.1.13.10 ity of [facility] 4.2.7.2.686 Harshad as [phone] [facility] [address] 2021-09-30 2021-09-30 Surgery MAO Giraldo 1.2.840.114 [id number] Univers 06:55:00 11:53:00 Naila HANNAH 350.1.13.10 it y of [facility] 4.2.7.2.686 Harshad as [phone] [facility] [address] 2021-09-26 2021-09-26 Telephone Rosio, 1.2.840.1 [id number] 21 [id number] Methodi 00:00:00 00:00:[address] 3.430.2.7 Hospit a .3.576619 l .8 2021-09-26 2021-09-26 Telephone Rosio, 1.2.840.1 [id number] 21 [id number] Methodi 00:00:00 00:00:[address] 3.430.2.7 Hospit a .3.643025 l .8 2021-09-23 2021-09-23 Outpatient Sarah DEANDRE [facility] [id number] Univers 08:15:00 08:15:[address] [facility] 2021-09-22 2021-09-22 Inpatient X NAILA GIRALDO [facility] S[facility] 1 [id number] Univers 04:18:00 04:18:[address] [facility] 2021-09-21 2021-09-21 Telephone Urania, 1.2.840.1 [id number] Methodi 00:00:00 00:00:[address] 3.430.2.7 Hospit a .3.057145 l .8 2021-09-21 2021-09-21 Telephone Urania, 1.2.840.1 [id number] [id number] Methodi 00:00:00 00:00:[address] 3.430.2.7 Hospit a .3.478491 l .8 2021-09-14 2021-09-14 Outpatient Sarah KIRKPATRICK [facility] [id number] Univers 14:00:00 14:00:[address] [facility] 2021-09-05 2021-09-05 Telephone Urania, 1.2.840.1 [id number] Methodi 00:00:00 00:00:[address] 3.430.2.7 Hospit a .3.044570 l .8 2021-09-05 2021-09-05 Telephone Raquel, 1.2.840.1 [id number] 565 [id number] Methodi 00:00:00 00:00:[address] 3.430.2.7 Hospit a .3.290467 l .8 2021-09-02 2021-09-02 [facility], Moisés - Jam [facility] 1.2.840.1 14 [id number] Univers 11:30:00 11:49:46 Visit Eric Cole [facility] 350.1.13. 10 ity of [place] 4.2.7.2.686 Harshad as MARGI?BLEA [phone] [address] OFFICE [facility] 2021-09-02 2021-09-02 [facility], Ang - Db [facility] 1.2.840.1 14 [id number] Univers 11:30:00 11:45:00 Visit Eric Cole [facility] 350.1.13. 10 ity of [place] 4.2.7.2.686 Harshad as MARGI?BLEA [phone] [address] OFFICE [facility] 2021-09-02 2021-09-02 Outpatient ERIC WRIGHT [facility] [id number] Univers 10:00:00 11:34:[address] [facility] 2021-09-02 2021-09-02 Office [facility] 1.2.840.114 [id number] Univers 10:00:00 11:34:[address] [facility] 350.1.13.10 ity of [place] 4.2.7.2.686 Harshad as MARGI?BLEA [phone] [address] OFFICE [facility] 2021-09-02 2021-09-[address] [facility] 1.2.840.114 [id number] Univers 10:00:00 11:34:[address] [facility] 350.1.13.10 ity of [place] 4.2.7.2.686 Harshad as MARGI?BLEA [phone] [facility] [address] OFFICE [facility] 2021-09-02 2021-09-02 Outpatient ERIC WRIGHT [facility] [id number] Univers 10:00:00 11:34:22 ERIC COLE baron [facility] 2021-09-02 2021-09-02 Outpatient ERIC WRIGHT [facility] [id number] Univers 11:30:00 11:30:00 ERIC COLE baron [facility] 2021-08-27 2021-08-[address] [facility] 1.2.840.114 [id number] Univers 00:00:00 00:00:00 Suki RYAN 350.1.13.10 it y of [place] 4.2.7.2.686 Harshad as MARGI?BLEA [phone] Ms sonya WEBSTER [address] [place] [address] OFFICE BUILDING 2021-08-26 2021-08-26 Office [facility] 1.2.219.176 [id number] Univers 10:30:00 10:45:00 Visit Suki RYAN 350.1.13.10 it y of [place] 4.2.7.2.686 Harshad as MARGI?BLEA [phone] Ms sonya [address] OFFICE [facility] 2021-08-26 2021-08-26 [facility]patient [facility] [id number] Univers 10:30:00 10:30:00 SUKI ity of [facility] 2021-08-12 2021-08-12 Telephone Raquel, 1.2.840.1 [id number] Methodi 00:00:00 00:00:[address] 3.430.2.7 Hospit a .3.223542 l .8 2021-08-12 2021-08-12 Telephone Raquel, 1.2.840.1 [id number] 642 [id number] Methodi 00:00:00 00:00:[address] 3.430.2.7 Hospit a .3.270709 l .8 2021-08-05 2021-08-05 Transition BREE Gonzalez 1.2.840.114 [id number] Univers 00:00:00 00:00:00 of Care Mamta ALEXANDRE 350.1.13.10 it y of [place].2.[place] [phone] [address] 2021-08-01 2021-08-04 [facility] Jacqueline Pandya [facility] 1.2.84 0.114 [id number] Univers 10:05:00 17:48:00 Encounter Leon Hennessy 350.1.13.10 ity of [place] 4.2.7.2.686 [facility] [phone] [place] [address] [address] 2021-08-01 2021-08-04 Inpatient X [facility] [id number] Univers 10:05:00 17:48:00 TATYANA sanchez [facility] 2021-08-01 2021-08-01 Telephone Rosio, 1.2.840.1 [id number] 21 [id number] Methodi 00:00:00 00:00:[address] 3.430.2.7 Hospit a .3.535722 l .8 2021-08-01 2021-08-01 Telephone Rosio, 1.2.840.1 [id number] 21 [id number] Methodi 00:00:00 00:00:[address] 3.430.2.7 Hospit a .3.113595 l .8 2021-07-25 2021-07-25 Telephone Robert 1.2.840.1 [id number] 21 [id number] Methodi 00:00:00 00:00:[address] 3.430.2.7 Hospit a .3.577545 l .8 2021-07-25 2021-07-25 Telephone Robert 1.2.840.1 [id number] 21 [id number] Methodi 00:00:00 00:00:[address] 3.430.2.7 Hospit a .3.546510 l .8 2021-07-22 2021-07-22 Orders Raquel, 1.2.840.1 [id number] 96206 Methodi 00:00:00 00:00:00 Only Wondiful 52092.1.[address] 3.430.2.7 Hospit a .3.507228 l .8 2021-07-22 2021-07-22 Orders Raquel 1.2.840.1 [id number] 72003 Methodi 00:00:00 00:00:00 Only Wondiful 71225.1.[address] 3.430.2.7 Hospit a .3.037977 l .8 2021-07-18 2021-07-18 Office Urania, 1.2.840.1 [id number] 13243 Methodi 15:30:00 16:33:10 Visit Wondiful 63693.1.[address] 3.430.2.7 Hospit a .3.730626 l .8 2021-07-18 2021-07-18 Office Urania, 1.2.840.1 [id number] 52451 Methodi 15:30:00 16:33:10 Visit Wondiful 25276.1.[address] 3.430.2.7 Hospit a .3.424562 l .8 2021-07-18 2021-07-18 Travel 1.2.840.1 1.2.582.581 7449 162765 Methodi 00:00:00 00:00:[address] 3.430.2.7 0.2.7.3.698 Ho spita .3.667767 084.8 l .8 2021-07-18 2021-07-18 Travel 1.2.840.1 1.2.565.810 3279 462201 Methodi 00:00:00 00:00:[address] 3.430.2.7 0.2.7.3.698 Ho spita .3.066929 084.8 l .8 2021-07-11 2021-07-11 Telephone Rosio, 1.2.840.1 [id number] 21 [id number] Methodi 00:00:00 00:00:[address] 3.430.2.7 Hospit a .3.144727 l .8 2021-07-11 2021-07-11 Telephone Rosio, 1.2.840.1 [id number] 21 [id number] Methodi 00:00:00 00:00:[address] 3.430.2.7 Hospit a .3.417600 l .8 2021-07-11 2021-07-11 Telephone Rosio, 1.2.840.1 [id number] Methodi 00:00:00 00:00:[address] 3.430.2.7 Hospit a .3.958298 l .8 2021-07-11 2021-07-11 Travel 1.2.840.1 1.2.872.147 7321 840622 Methodi 00:00:00 00:00:[address] 3.430.2.7 0.2.7.3.698 Ho spita .3.177721 084.8 l .8 2021-07-11 2021-07-11 Telephone Rosio, 1.2.840.1 [id number] Methodi 00:00:00 00:00:[address] 3.430.2.7 Hospit a .3.644284 l .8 2021-07-11 2021-07-11 Travel 1.2.840.1 1.2.690.765 4945 707449 Methodi 00:00:00 00:00:[address] 3.430.2.7 0.2.7.3.698 Ho spita .3.282090 084.8 l .8 2021-07-01 2021-07-01 Orders Raquel, 1.2.840.1 [id number] 20254 Methodi 00:00:00 00:00:00 Only Wondiful 48733.1.[address] 3.430.2.7 Hospit a .3.689620 l .8 2021-07-01 2021-07-01 Telephone Raquel, 1.2.840.1 [id number] 341 [id number] Methodi 00:00:00 00:00:[address] 3.430.2.7 Hospit a .3.115439 l .8 2021-07-01 2021-07-01 Telephone Raquel, 1.2.840.1 [id number] 783 [id number] Methodi 00:00:00 00:00:[address] 3.430.2.7 Hospit a .3.033802 l .8 2021-07-01 2021-07-01 Orders Urania, 1.2.840.1 [id number] 59816 Methodi 00:00:00 00:00:00 Only Wondiful 29523.1.[address] 3.430.2.7 Hospit a .3.932162 l .8 2021-07-01 2021-07-01 Telephone Urania, 1.2.840.1 [id number] 388 [id number] Methodi 00:00:00 00:00:[address] 3.430.2.7 Hospit a .3.575032 l .8 2021-07-01 2021-07-01 Telephone Urania, 1.2.840.1 [id number] 572 [id number] Methodi 00:00:00 00:00:[address] 3.430.2.7 Hospit a .3.315182 l .8 2021-06-30 2021-06-30 Office Urania, 1.2.840.1 [id number] 54310 Methodi 14:30:00 15:33:50 Visit Wondiful 23078.1.[address] 3.430.2.7 Hospit a .3.108219 l .8 2021-06-30 2021-06-30 Office Raquel, 1.2.840.1 [id number] 21770 Methodi 14:30:00 15:33:50 Visit Wondiful 00355.1.[address] 3.430.2.7 Hospit a .3.378741 l .8 2021-06-30 2021-06-30 Travel 1.2.840.1 1.2.525.864 8645 282005 Methodi 00:00:00 00:00:[address] 3.430.2.7 0.2.7.3.698 Ho spita .3.925946 084.8 l .8 2021-06-30 2021-06-30 Travel 1.2.840.1 1.2.529.523 3792 538527 Methodi 00:00:00 00:00:[address] 3.430.2.7 0.2.7.3.698 Ho spita .3.009865 084.8 l .8 2021-06-28 2021-06-28 Travel 1.2.840.1 1.2.096.991 3292 545342 Methodi 00:00:00 00:00:[address] 3.430.2.7 0.2.7.3.698 Ho spita .3.415369 084.8 l .8 2021-06-28 2021-06-28 Travel 1.2.840.1 1.2.749.367 5023 220030 Methodi 00:00:00 00:00:[address] 3.430.2.7 0.2.7.3.698 Ho spita .3.316151 084.8 l .8 Results Test Description Test Time Test Comments Results Result Comments Source POCT GLUCOSE (AUTOMATED) 2022-01-11 17:42:43 Test Item Value Reference Range Interpretation Comme nts POCT GLU (test code = 3980197830) 196 mg/dL 70-110 H Lab Interpretation (test code = 71733-2) Abnormal [facility] GLUCOSE (AUTOMATED)2022-01-11 14:47:47 Test Item Value Reference Range Interpretation Comments POCT GLU (test code = 8670049588) 193 mg/dL 70-110 H Lab Interpretation (test code = Abnormal 68353-5) [facility] GLUCOSE (AUTOMATED)2022-01-11 14:01:08 Test Item Value Reference Range Interpretation Comments POCT GLU (test code = 0397601958) 203 mg/dL 70-110 H Lab Interpretation (test code = Abnormal 57367-8) [facility] 03:05:15 Test Item Value Reference Range Interpretation Comments POCT GLU (test code = 6353836553) 204 mg/dL 70-110 H Lab Interpretation (test code = Abnormal 58613-1) [facility] [id number] 23:29:20 Test Item Value Reference Interpretation Comments Range TROPONIN I (test 0.007 ng/mL See_Comment [Automated code = 6531658937) message] The system which generated this result [...] biotin. Lab Interpretation Normal (test code = 45897-2) [facility] [id number] 23:29:20 Test Item Value Reference Interpretation Comments Range TROPONIN I (test 0.007 ng/mL See_Comment [Automated code = 5121833696) message] The system which generated this result [...] biotin. Lab Interpretation Normal (test code = 30520-0) [facility] GLUCOSE (AUTOMATED)2022-01-10 22:32:55 Test Item Value Reference Range Interpretation Comments POCT GLU (test code = 3873395816) 229 mg/dL 70-110 H Lab Interpretation (test code = Abnormal 33915-8) [facility] GLUCOSE (AUTOMATED)2022-01-10 22:32:55 Test Item Value Reference Range Interpretation Comments POCT GLU (test code = 1012837553) 229 mg/dL 70-110 H Lab Interpretation (test code = Abnormal 92174-5) [facility]2022-01-10 21:45:44 Test Item Value Reference Range Interpretation Comments Height (test code = in 1420706978) Weight (test code = lbs 2839191963) Systolic BP (test code = mmHg 4111251946) Diastolic BP (test code mmHg = 6435575712) Heart Rate (test code = bpm 1909109237) BSA (test code = 1.93 m2 7254211850) Ao root diam (test code 3.90 cm = 4970880950) Aortic root (test code = 3.9 cm 3095313616) Ao root annulus (test 3.9 cm code = 1488683096) LVOT diameter (test code 2.20 cm = 7729914144) LVOT area (test code = 3.80 cm2 3997532418) LVIDD (test code = 3.80 cm 5778040498) Left Ventricular End 63.9 mL Diastolic Volume by Teichholz Method (test code = 3488799) IVS (test code = 1.18 cm 8648881392) Interventricular Septum 1.18 cm Diastolic Thickness by 2D (test code = 6223097) LVPWD (test code = 1.19 cm 4290146024) PW (test code = 1.19 cm 0.6-1.3 0100155032) EF(Teich) (test code = 54.00 % 2136450299) LVIDS (test code = 2.80 cm 5112904206) Left Ventricular End 29.4 mL Systolic Volume by Teichholz Method (test code = 8640804) FS (test code = 27 % 6731973972) EF - 2D (test code = 54.00 % 04041372) LA size (test code = 4.6 cm 4795797160) TR Peak Frank (test code = 233.1 cm/s 1980105002) Triscuspid Valve mmHg Regurgitation Peak Gradient (test code = 3199509154) LAV(MOD-sp4) (test code 90.80 mL = 8041665179) E wave decelartion time 0.24 s (test code = 7908460542) MV stenosis pressure 1/2 73.8 ms time (test code = 6467429528) MV Peak A Frank (test code 97.8 cm/s = 3145830534) MV Peak E Frank (test code 96.6 cm/s = 4325407077) E/A ratio (test code = ratio 6111589436) MV Prop V (test code = 21.00 cm/s 4850312637) MV E/e' septal (test 10.2 cm/s code = 1382296246) Tapse (test code = 1.88 cm 5404295382) LVOT stroke volume (test 72.40 cm3 code = 9902933642) LVOT peak frank (test code 85.7 cm/s = 9233637488) LVOT mn grad (test code mmHg = 4779874855) AV LVOT peak gradient mmHg (test code = 7763870005) LVOT peak VTI (test code 19.0 cm = 9852241718) LV V1 mean (test code = 61.60 cm/s 1503270349) Aortic valve mean 101.1 cm/s velocity (test code = 6733555386) Ao peak frank (test code = 137.0 cm/s 0702361446) Ao VTI (test code = 27.4 cm 9147659447) AV area by cont VTI 2.6 cm2 (test code = 2514073600) AV area peak frank (test 2.4 cm2 code = 6588389262) Ao max PG (test code = 7.50 mm[Hg] 3137469907) AV peak gradient (test mmHg code = 4350869804) AV valve area (test code 2.60 cm2 = 7694968603) AV mean gradient (test mmHg code = 7812338954) Radiology Study observation (narrative) (test code = 98925-7) ADD (test code = ADD) Addendum by Martinez Reyes MD on 01/10/2022 5:25 PM [employer] ?Left?Ventricle: Left ventricle size is normal. Normal wall thickness. Normal wall motion. Normal systolic function with a visually estimated EF of 60 - 65%. Indeterminate diastolic function. ?Right?Ventricle: Normal systolic function. ?Tricuspid?Valve: Right ventricular systolic pressure = 20 mmHg + RA pressure. ?Aortic?Valve: No evidence of aortic stenosis. ?Left?Atrium: Left atrium is mildly dilated. ?IVC/SVC: IVC was not well visualized. Masha Brooks MDLeft VentricleLeft ventricle size is normal. Normal [...] 2D, color flow Doppler and spectral Doppler. [facility] 21:45:44 Test Item Value Reference Range Interpretation Comments Height (test code = in 6611074143) Weight (test code = lbs 0848046640) Systolic BP (test code = mmHg 8386588527) Diastolic BP (test code mmHg = 9250962727) Heart Rate (test code = bpm 1776956117) BSA (test code = 1.93 m2 9282416748) Ao root diam (test code 3.90 cm = 2973312933) Aortic root (test code = 3.9 cm 1770345632) Ao root annulus (test 3.9 cm code = 7708413214) LVOT diameter (test code 2.20 cm = 3768973514) LVOT area (test code = 3.80 cm2 8720567119) LVIDD (test code = 3.80 cm 7324934911) Left Ventricular End 63.9 mL Diastolic Volume by Teichholz Method (test code = 3570571) IVS (test code = 1.18 cm 3269653866) Interventricular Septum 1.18 cm Diastolic Thickness by 2D (test code = 9635177) LVPWD (test code = 1.19 cm 9269984737) PW (test code = 1.19 cm 0.6-1.5 6966865916) EF(Teich) (test code = 54.00 % 5602339062) LVIDS (test code = 2.80 cm 1072431002) Left Ventricular End 29.4 mL Systolic Volume by Teichholz Method (test code = 0624841) FS (test code = 27 % 0092514369) EF - 2D (test code = 54.00 % 14877055) LA size (test code = 4.6 cm 7008187646) TR Peak Frank (test code = 233.1 cm/s 8767386504) Triscuspid Valve mmHg Regurgitation Peak Gradient (test code = 3002090121) LAV(MOD-sp4) (test code 90.80 mL = 7463951085) E wave decelartion time 0.24 s (test code = 8004736336) MV stenosis pressure 1/2 73.8 ms time (test code = 0160251661) MV Peak A Frank (test code 97.8 cm/s = 9855035221) MV Peak E Frank (test code 96.6 cm/s = 2057760091) E/A ratio (test code = ratio 0509134807) MV Prop V (test code = 21.00 cm/s 9188077084) MV E/e' septal (test 10.2 cm/s code = 8242932613) Tapse (test code = 1.88 cm 2226369224) LVOT stroke volume (test 72.40 cm3 code = 2437330183) LVOT peak frank (test code 85.7 cm/s = 9018941031) LVOT mn grad (test code mmHg = 0514891133) AV LVOT peak gradient mmHg (test code = 2113653644) LVOT peak VTI (test code 19.0 cm = 8724045420) LV V1 mean (test code = 61.60 cm/s 2184124852) Aortic valve mean 101.1 cm/s velocity (test code = 7166174906) Ao peak frank (test code = 137.0 cm/s 4470417543) Ao VTI (test code = 27.4 cm 9213687630) AV area by cont VTI 2.6 cm2 (test code = 1925296630) AV area peak frank (test 2.4 cm2 code = 8284248971) Ao max PG (test code = 7.50 mm[Hg] 5012565210) AV peak gradient (test mmHg code = 6192758800) AV valve area (test code 2.60 cm2 = 7635156710) AV mean gradient (test mmHg code = 4578108843) Radiology Study observation (narrative) (test code = 40344-2) ADD (test code = ADD) Addendum by Martinez Reyes MD on 01/10/2022 5:25 PM [employer] ?Left?Ventricle: Left ventricle size is normal. Normal wall thickness. Normal wall motion. Normal systolic function with a visually estimated EF of 60 - 65%. Indeterminate diastolic function. ?Right?Ventricle: Normal systolic function. ?Tricuspid?Valve: Right ventricular systolic pressure = 20 mmHg + RA pressure. ?Aortic?Valve: No evidence of aortic stenosis. ?Left?Atrium: Left atrium is mildly dilated. ?IVC/SVC: IVC was not well visualized. Christie Swansonft VentricleLeft ventricle size is normal. Normal wall [...] 2D, color flow Doppler and spectral Doppler. [facility] [id number] 20:54:35 Test Item Value Reference Interpretation Comments Range TROPONIN I (test 0.005 ng/mL See_Comment [Automated code = 6046510773) message] The system which generated this result [...] biotin. Lab Interpretation Normal (test code = 59906-5) [facility] [id number] 20:54:35 Test Item Value Reference Interpretation Comments Range TROPONIN I (test 0.005 ng/mL See_Comment [Automated code = 5937492071) message] The system which generated this result [...] biotin. Lab Interpretation Normal (test code = 99742-4) [facility] GLUCOSE (AUTOMATED)2022-01-10 13:45:15 Test Item Value Reference Range Interpretation Comments POCT GLU (test code = 0327908879) 101 mg/dL 70-110 Lab Interpretation (test code = Normal 86201-2) [facility] GLUCOSE (AUTOMATED)2022-01-10 13:45:15 Test Item Value Reference Range Interpretation Comments POCT GLU (test code = 6659870839) 101 mg/dL 70-110 Lab Interpretation (test code = Normal 80461-7) [facility] with Agrxpsvrygqz7083-84-11 10:30:41 Test Item Value Reference Range Interpretation [...] RDW-SD (test code = 50.9 fL 38.5-51.6 82306-3) RDW-CV (test code = 16.2 % 12.1-15.4 H 788-0) PLT (test code = See_Comment [Automated 777-3) message] The sy stem which generated this result transmitted reference range : 150 - 328 10*3/ ?L. The reference r jay was not used to interpret this result as normal/abnormal . MPV (test code = 8.8 fL 9.8-13.0 L 65390-2) NRBC/100 WBC (test See_Comment [Automat ed code = 5344324205) message] The system which generated this result transmitted reference range : 0.0 - 10.0 /100 WBCs. The refer ence range was not u sed to interpret th is result as normal/abnormal . NRBC x10^3 (test code See_Comment [Auto mated = 6191082794) message] The s ystem which generated this result transmitted reference range : 10*3/?L. The reference range was not used to interpret this result as normal/abnormal . GRAN MAT (NEUT) % 61.9 % (test code = 770-8) IMM GRAN % (test code 0.70 % = 7171280018) LYMPH % (test code = 24.0 % 736-9) MONO % (test code = 12.4 % 5905-5) EOS % (test code = 0.5 % 713-8) BASO % (test code = 0.5 % 706-2) GRAN MAT x10^3(ANC) 5.49 10*3/uL 1.99-6.95 (test code = 5082150914) IMM GRAN x10^3 (test 0.06 10*3/uL 0.00-0.06 code = 5534723236) LYMPH x10^3 (test code 2.12 10*3/uL 1.09-3.23 = 731-0) MONO x10^3 (test code 1.10 10*3/uL 0.36-1.02 H = 742-7) EOS x10^3 (test code = 0.04 10*3/uL 0.06-0.53 L 711-2) BASO x10^3 (test code 0.04 10*3/uL 0.01-0.09 = 704-7) Lab Interpretation Abnormal (test code = 59023-8) [facility] with Xiecvxmidqrd5333-10-98 10:30:41 Test Item Value Reference Range Interpretation [...] RDW-SD (test code = 50.9 fL 38.5-51.6 85385-5) RDW-CV (test code = 16.2 % 12.1-15.4 H 788-0) PLT (test code = See_Comment [Automated 777-3) message] The sy stem which generated this result transmitted reference range : 150 - 328 10*3/ ?L. The reference r jay was not used to interpret this result as normal/abnormal . MPV (test code = 8.8 fL 9.8-13.0 L 86217-0) NRBC/100 WBC (test See_Comment [Automat ed code = 4828007487) message] The system which generated this result transmitted reference range : 0.0 - 10.0 /100 WBCs. The refer ence range was not u sed to interpret th is result as normal/abnormal . NRBC x10^3 (test code See_Comment [Auto mated = 5951496498) message] The s ystem which generated this result transmitted reference range : 10*3/?L. The reference range was not used to interpret this result as normal/abnormal . GRAN MAT (NEUT) % 61.9 % (test code = 770-8) IMM GRAN % (test code 0.70 % = 0233661285) LYMPH % (test code = 24.0 % 736-9) MONO % (test code = 12.4 % 5905-5) EOS % (test code = 0.5 % 713-8) BASO % (test code = 0.5 % 706-2) GRAN MAT x10^3(ANC) 5.49 10*3/uL 1.99-6.95 (test code = 5395452931) IMM GRAN x10^3 (test 0.06 10*3/uL 0.00-0.06 code = 1290995331) LYMPH x10^3 (test code 2.12 10*3/uL 1.09-3.23 = 731-0) MONO x10^3 (test code 1.10 10*3/uL 0.36-1.02 H = 742-7) EOS x10^3 (test code = 0.04 10*3/uL 0.06-0.53 L 711-2) BASO x10^3 (test code 0.04 10*3/uL 0.01-0.09 = 704-7) Lab Interpretation Abnormal (test code = 32920-2) [facility] GLUCOSE (AUTOMATED)2022-01-10 06:10:26 Test Item Value Reference Range Interpretation Comments POCT GLU (test code = 3405868949) 272 mg/dL 70-110 H Lab Interpretation (test code = Abnormal 22204-7) [facility] GLUCOSE (AUTOMATED)2022-01-10 06:10:26 Test Item Value Reference Range Interpretation Comments POCT GLU (test code = 6191097469) 272 mg/dL 70-110 H Lab Interpretation (test code = Abnormal 71921-1) [facility] GLUCOSE (AUTOMATED)2022-01-10 03:04:30 Test Item Value Reference Range Interpretation Comments POCT GLU (test code = 5972469785) 448 mg/dL 70-110 H Lab Interpretation (test code = Abnormal 34577-1) [facility] GLUCOSE (AUTOMATED)2022-01-10 03:04:30 Test Item Value Reference Range Interpretation Comments POCT GLU (test code = 6753571952) 448 mg/dL 70-110 H Lab Interpretation (test code = Abnormal 21632-3) [facility] GLUCOSE (AUTOMATED)2022-01-09 17:40:50 Test Item Value Reference Range Interpretation Comments POCT GLU (test code = 9374197367) 148 mg/dL 70-110 H Lab Interpretation (test code = Abnormal 67365-1) [facility] GLUCOSE (AUTOMATED)2022-01-09 17:40:50 Test Item Value Reference Range Interpretation Comments POCT GLU (test code = 8253018912) 148 mg/dL 70-110 H Lab Interpretation (test code = Abnormal 29334-6) [facility] BranchType and Screen - This is a pre-surgical type and screen. ONCE [id number] 14:07:38 Test Item Value Reference Range Interpretation Comments ABO & RH (test code O Positive Performe d at [facility] = 20) Laboratory [facility] [place], [place] [address]Toll Free: [phone] A No. [id number] IAT (test code = Negative Performed a t [facility] 1185) Laboratory [facility] [place], [place] [address]Toll Free: [phone] A No. [id number] [facility] - This is a pre-surgical type and screen. ONCE [id number] 14:07:38 Test Item Value Reference Range Interpretation Comments ABO & RH (test code O Positive Performe d at [facility] = 20) Laboratory [facility] [place], [place] [address]Toll Free: [phone] A No. [id number] IAT (test code = Negative Performed a t [facility] 1185) Laboratory [facility] [place], [place] [address]Toll Free: [phone] A No. [id number] [facility] GLUCOSE (AUTOMATED)2022-01-09 13:15:47 Test Item Value Reference Range Interpretation Comments POCT GLU (test code = 3129873491) 98 mg/dL 70-110 Lab Interpretation (test code = Normal 62909-2) [facility] GLUCOSE (AUTOMATED)2022-01-09 13:15:47 Test Item Value Reference Range Interpretation Comments POCT GLU (test code = 9915494870) 98 mg/dL 70-110 Lab Interpretation (test code = Normal 68763-5) [facility] level, whole [id number] 14:11:00 Test Item Value Reference Range Interpretation Comments Vitamin B1, whole 149.3 nmol/L 66.5-200.0 blood (test code = 53834-6) ONEYDA (test code = Test(s) 272968-Ztf. B1, ONEYDA) Whole Bloodwas developed and its performance characteristics determinedby [facility]. It has not been cleared or approved by the Foodand Drug Administration.Performed at: [facility] [id number] Director: Maria Elena Kilgore MD, Phone: [phone] Vitamin B1 level, whole dssgp3993-96-98 14:11:00 Test Item Value Reference Range Interpretation Comments Vitamin B1, whole 149.3 nmol/L 66.5-200.0 blood (test code = 69015-5) ONEYDA (test code = Test(s) 271664-Hiv. B1, ONEYDA) Whole Bloodwas developed and its performance characteristics determinedby [facility]. It has not been cleared or approved by the Foodand Drug Administration.Performed at: [address] [id number] Director: Maria Elena Kilgore MD, Phone: [phone] Vitamin B1 level, whole ubavi0053-86-13 14:11:00 Test Item Value Reference Range Interpretation Comments Vitamin B1, whole 149.3 nmol/L 66.5-200 blood (test code = 02679-8) ONEYDA (test code = Test(s) 818199-Wyg. B1, ONEYDA) Whole Bloodwas developed and its performance characteristics determinedby [facility]. It has not been cleared or approved by the Foodand Drug Administration.Performed at: [address] [id number] Director: Maria Elena Kilgore MD, Phone: [phone] Anti-smooth muscle xmmbntpv7698-32-01 21:08:00 Test Item Value Reference Range Interpretation Comments F-actin See_Comment Negative 0 - 1 9 (smooth Weak positive 2 0 - muscle) Ab, 30 Moderate to IgG (test code strong positi ve >30 = 96721-6) Actin Antibodie s are found in 52-85% of patients with autoimmune hepa titis or chronic acti ve hepatitis and i n 22% of patients wit h primary biliary cirrhosis. [Automated mess age] The system [employer] generated this result transmit gretta reference range : 0 - 19 Units. The reference range was not used to interpret this result as normal/abnormal . ONEYDA (test code Performed at: - = [facility]DA) [address] [id number] Director: Maria Elena Kilgore MD, Phone: [phone] [facility] mitochondria [id number] 21:08:00 Test Item Value Reference Range Interpretation Comments Mitochondrial Ab <20.0 See_Comment Negative 0 .0 - (test code = 20.0 Equivocal 34739-4) 20.1 - 24.9 Positive >24.9Mitochondr ia l (M2) Antibodi es are found in 90-96% ofpatien ts with primary biliary cirrhosis. [Automated message] The system which generated this result transmitted reference range : 0.0 - 20.0 Unit s. The reference range was not used to interpr et this result as normal/abnormal . ONEYDA (test code = Performed at: [facility]) - [address] [id number] Director: Maria Elena Kilgore MD, Phone: [phone] [facility]-smooth muscle glklxxki9685-08-38 21:08:00 Test Item Value Reference Range Interpretation Comments F-actin See_Comment Negative 0 - 1 9 (smooth Weak positive 20 - muscle) Ab, 30 Moderate to IgG (test code strong positi ve >30 = 31902-1) Actin Antibodie s are found in 52-85% of patients with autoimmune hepa titis or chronic acti ve hepatitis and i n 22% of patients wit h primary biliary cirrhosis. [Automated mess age] The system [employer] generated this result transmit gretta reference range : 0 - 19 Units. The reference range was not used to interpret this result as normal/abnormal . ONEYDA (test code Performed at: - = [facility]) [address] [id number] Director: Maria Elena Kilgore MD, Phone: [phone] [facility] nuijvv3245-35-27 21:08:00 Test Item Value Reference Range Interpretation Comments Mitochondrial Ab <20.0 See_Comment Negative 0 .0 - (test code = 20.0 Equivocal 50577-1) 20.1 - 24.9 Positive >24.9Mitochondr ia l (M2) Antibodi es are found in 90-96% ofpatien ts with primary biliary cirrhosis. [Automated message] The system which generated this result transmitted reference range : 0.0 - 20.0 Unit s. The reference range was not used to interpr et this result as normal/abnormal . ONEYDA (test code = Performed at: [facility]) - [address] [id number] Director: Maria Elena Kilgore MD, Phone: [phone] [facility]-smooth muscle lnwqhqdg3472-29-99 21:08:00 Test Item Value Reference Range Interpretation Comments F-actin See_Comment Negative 0 - 1 9 (smooth Weak positive 20 - muscle) Ab, 30 Moderate to IgG (test code strong positi ve >30 = 17985-5) Actin Antibodie s are found in 52-85% of patients with autoimmune hepa titis or chronic acti ve hepatitis and i n 22% of patients wit h primary biliary cirrhosis. [Automated mess age] The system [facility] h generated this result transmit gretta reference range : 0 - 19 Units. The reference range was not used to interpret this result as normal/abnormal . ONEYDA (test code Performed at: - = [facility]) [address] [id number] Director: Maria Elena Kilgore MD, Phone: [phone] [facility] mitochondria zscjlm1038-57-36 21:08:00 Test Item Value Reference Range Interpretation Comments Mitochondrial Ab <20.0 See_Comment Negative 0 .0 - (test code = 20.0 Equivocal 13349-8) 20.1 - 24.9 Positive >24.9Mitochondr ia l (M2) Antibodi es are found in 90-96% ofpatien ts with primary biliary cirrhosis. [Automated message] The system which generated this result transmitted reference range : 0.0 - 20.0 Unit s. The reference range was not used to interpr et this result as normal/abnormal . ONEYDA (test code = Performed at: ONE[facility]DA) - [facility] [place], [place] [id number] Director: Maria Elena Kilgore MD, Phone: [phone] Hemoglobinopathy fractionation [id number] 20:10:00 Test Item Value Reference Interpretation Comments Range Hemoglobin F (test 0.0 % 0.0-2.0 code = 85460-4) Hemoglobin A (test 98.0 % 96.4-98.8 code = 86189-1) Hemoglobin A2 (test 2.0 % 1.8-3.2 code = 4552-6) Hemoglobin S (test 0.0 % See_Comment [Automat ed message] The code = 31477-7) system which generated this result tra nsmitted reference range : 0.0. The reference r jay was not used to int erpret this result as normal/abnormal . Interpretation Comment Normal hemogl obin (test code = present; no hem oglobin 60531-6) variant or beta thalassemiaiden tified.No te: Alpha thala ssemia may not be dete cted by the Hgb FractionationCa scade panel. If alpha thalassemia is suspected, [facility] or [facility] [place] DNA Analysis (# 977325). ONEYDA (test code = Performed at: ONEYDA) - [address], [place], [place] [id number] Director: DICK Monreal MD, Phone: [phone] Hemoglobinopathy fractionation haifkkv4669-98-09 20:10:00 Test Item Value Reference Interpretation Comments Range Hemoglobin F (test 0.0 % 0.0-2.0 code = 82598-8) Hemoglobin A (test 98.0 % 96.4-98.8 code = 40654-6) Hemoglobin A2 (test 2.0 % 1.8-3.2 code = 4552-6) Hemoglobin S (test 0.0 % See_Comment [Automat ed message] The code = 45537-0) system which generated this result tra nsmitted reference range : 0.0. The reference r jay was not used to int erpret this result as normal/abnormal . Interpretation Comment Normal hemogl obin (test code = present; no hem oglobin 42605-2) variant or beta thalassemiaiden tified.No te: Alpha thala ssemia may not be dete cted by the b FractionationCa scade panel. If alpha thalassemia is suspected, [facility] offers[place] lassemia DNA Analysis (# 140341). ONEYDA (test code = Performed at: [facility]) [address] [place] [address] [place] [id number] Director: DICK Monreal MD, Phone: [phone] Hemoglobinopathy fractionation nmnvrkn6419-28-15 20:10:00 Test Item Value Reference Interpretation Comments Range Hemoglobin F (test 0.0 % 0-2 code = 87874-5) Hemoglobin A (test 98.0 % 96.4-98.8 code = 69536-9) Hemoglobin A2 (test 2.0 % 1.8-3.2 code = 4552-6) Hemoglobin S (test 0.0 % See_Comment [Automat ed message] The code = 34708-0) system which generated this result tra nsmitted reference range : 0.0. The reference r jay was not used to int erpret this result as normal/abnormal . Interpretation Comment Normal hemogl obin (test code = present; no hem oglobin 23269-6) variant or beta thalassemiaiden tified.No te: Alpha thala ssemia may not be dete cted by the [facility] FractionationCa scade panel. If alpha thalassemia is suspected, [facility] offersAlpha-[place] lassemia DNA Analysis (# 271184). ONEYDA (test code = Performed at: ONE[facility]DA) [address] [place] [address] [place] [id number] Director: DICK Monreal MD, Phone: [phone] Alpha-1 antitrypsin rkwcy6293-08-09 20:11:00 Test Item Value Reference Range Interpretation Comments Alpha-1 antitrypsin 159 mg/dL 101-187 (test code = 1825-9) ONEYDA (test code = ONEYDA) Performed at: [address] [place] [address] [place] [id number] Director: DICK Monreal MD, Phone: [phone] Alpha-1 antitrypsin [id number] 20:11:00 Test Item Value Reference Range Interpretation Comments Alpha-1 antitrypsin 159 mg/dL 101-187 (test code = 1825-9) ONEYDA (test code = ONEYDA) Performed at: [address] [place] [address] [address], [place] [id number] Director: DICK Monreal MD, Phone: [phone] Alpha-1 antitrypsin [id number] 20:11:00 Test Item Value Reference Range Interpretation Comments Alpha-1 antitrypsin 159 mg/dL 101-187 (test code = 1825-9) ONEYDA (test code = ONEYDA) Performed at: [address] [place], [place] [address]dg [address], [place] [id number] Director: DICK Monreal MD, Phone: [phone] [facility]2022-06-17 17:09:00 Test Item Value Reference Range Interpretation Comments ERIK direct (test code Negative Negative = 8061-4) ONEYDA (test code = ONEYDA) Performed at: [address] [place] [id number] Director: Rian Auguste MD, Phone: [phone] [facility], [id number] 17:09:00 Test Item Value Reference Range Interpretation Comments Cortisol, PM (test code = 12.5 ug/dL 2.3-11.9 H 9812-9) ONEYDA (test code = ONEYDA) Performed at: [address] [place] [address] [id number] Director: Rian Auguste MD, Phone: [phone] Lab Interpretation (test Abnormal code = 03285-4) [facility]2022-06-17 17:09:00 Test Item Value Reference Range Interpretation Comments ERIK direct (test code Negative Negative = 8061-4) ONEYDA (test code = ONEYDA) Performed at: [address] [place] [address] [id number] Director: Rian Auguste MD, Phone: [phone] [facility], [id number] 17:09:00 Test Item Value Reference Range Interpretation Comments Cortisol, PM (test code = 12.5 ug/dL 2.3-11.9 H 9812-9) ONEYDA (test code = ONEYDA) Performed at: [address] [place] [address] [id number] Director: Rian Auguste MD, Phone: [phone] Lab Interpretation (test Abnormal code = 65470-7) [facility]2022-06-17 17:09:00 Test Item Value Reference Range Interpretation Comments ERIK direct (test code Negative Negative = 8061-4) ONEYDA (test code = ONEYDA) Performed at: [address] [place] [address] [id number] Director: Rian Auguste MD, Phone: [phone] [facility] [place] [id number] 17:09:00 Test Item Value Reference Range Interpretation Comments Cortisol, PM (test code = 12.5 ug/dL 2.3-11.9 H 9812-9) ONEYDA (test code = ONEYDA) Performed at: [address] [place] [address] [id number] Director: Rian Auguste MD, Phone: [phone] Lab Interpretation (test Abnormal code = 50155-9) [facility]2022-06-17 13:08:00 Test Item Value Reference Range Interpretation Comments GGT (test code See_Comment [Automated m essage] = 2324-2) The system [employer] generated this result transmit gretta reference range : 0 - 65 IU/L. The reference range was not used to interpret this result as normal/abnormal . ONEYDA (test code Performed at: - = ONEYDA) [address] [id number] Director: Rian Auguste MD, Phone: [phone] [facility] [id number] 13:08:00 Test Item Value Reference Range Interpretation Comments Potassium (test code = 5.2 mmol/L 3.5-5.2 2823-3) ONEYDA (test code = ONEYDA) Performed at: [address] [place] [address] [id number] Director: Rian Auguste MD, Phone: [phone] [facility] with platelet and gptqkhkcbrxf3151-11-60 13:08:00 Test Item Value Reference Range Interpretation [...] 1 % Not Estab. (test code = 45106-7) Immature See_Comment [Automated granulocytes, message] The absolute (test code = system which 97495-2) generated this result transmitted reference range : 0.0 - 0.1 x10E3/uL. The reference range was not used to interpret this result as normal/abnormal . ONEYDA (test code = ONEYDA) Performed at: [address] [id number] Director: Rian Auguste MD, Phone: [phone] Lab Interpretation Abnormal (test code = 59150-1) [facility] B surface udzmrct7146-25-04 13:08:00 Test Item Value Reference Range Interpretation Comments Hepatitis B surface Ag Negative Negative (test code = 5196-1) ONEYDA (test code = ONEYDA) Performed at: [address] [id number] Director: Rian Auguste MD, Phone: [phone] [facility] B surface ohoufpgz1002-10-57 13:08:00 Test Item Value Reference Range Interpretation Comments Hepatitis B Non Reactive Non Reactive: surface Ab (test Inconsisten t with code = 29767-6) immunity, l ess than 10 mIU/mL Reactive: Consistent with immunity, great er than 9.9 mIU/mL ONEYDA (test code = Performed at: ONEYDA) [facility] [id number] Director: Rian Auguste MD, Phone: [phone] [facility] A antibody eizna7932-97-06 13:08:00 Test Item Value Reference Range Interpretation Comments Hepatitis A total Ab Positive Negative A (test code = 08428-4) ONEYDA (test code = ONEYDA) Performed at: [address] [id number] Director: Rian Auguste MD, Phone: [phone] Lab Interpretation (test Abnormal code = 42024-0) Reticulocyte count, ujuscktvv8118-28-14 13:08:00 Test Item Value Reference Range Interpretation Comments Retic count, manual 1.5 % 0.6-2.6 (test code = 84101-9) ONEYDA (test code = ONEYDA) Performed at: [address] [id number] Director: Rian Auguste MD, Phone: [phone] Total iron binding lwpzrkbu0297-19-95 13:08:00 Test Item Value Reference Range Interpretation Comments Iron binding capacity 295 ug/dL 250-450 (test code = 2500-7) Unsaturated iron binding 253 ug/dL 111-343 capacity (test code = 2501-5) Iron level (test code = 42 ug/dL 38-169 2498-4) Iron saturation (test 14 % 15-55 L code = 2502-3) ONEYDA (test code = ONEYDA) Performed at: [address] [id number] Director: Rian Auguste MD, Phone: [phone] Lab Interpretation (test Abnormal code = 57625-8) HIV 1/2 antigen/antibody, fourth generation w/kcu6187-03-81 13:08:00 Test Item Value Reference Range Interpretation Comments HIV AG/AB 4th Non Reactive Non Reactive HIV gen (test code NegativeHIV-1 /HIV-2 = 31500-0) antibodies and HIV-1 p24 antigen wer e NOT detected.There is no laboratory evid ence of HIV infectio n. ONEYDA (test code Performed at: - = ONEYDA) [address] [id number] Director: Rian Auguste MD, Phone: [phone] Vitamin B12 kxzhw5604-82-89 13:08:00 Test Item Value Reference Range Interpretation Comments Vitamin B12 (test 315 pg/mL 232-1245 code = 2132-9) ONEYDA (test code = ONEYDA) Performed at: [address] [place] [address] [id number] Director: Rian Auguste MD, Phone: [phone] Ferritin [id number] 13:08:00 Test Item Value Reference Range Interpretation Comments Ferritin level (test 86 ng/mL 30-400 code = 2276-4) ONEYDA (test code = ONEYDA) Performed at: [address] [place] [address] [id number] Director: Rian Auguste MD, Phone: [phone] [facility]2022-06-17 13:08:00 Test Item Value Reference Range Interpretation Comments Folate (test 12.2 ng/mL See_Comment A serum folate code = 2284-8) concentration of less than 3.1 ng/mL isconsidered to represent clini doyle deficiency. [Automated mess age] The system [employer] generated this result transmitted ref erence range: >=3.0. T he reference range was not used to int erpret this result as normal/abnormal . ONEYDA (test code Performed at: - = ONEYDA) [address] [id number] Director: Rian Auguste MD, Phone: [phone] [facility]2022-06-17 13:08:00 Test Item Value Reference Range Interpretation Comments GGT (test code See_Comment [Automated m essage] = 2324-2) The system [employer] generated this result transmit gretta reference range : 0 - 65 IU/L. The reference range was not used to interpret this result as normal/abnormal . ONEYDA (test code Performed at: - = ONEYDA) [address] [id number] Director: Rian Auguste MD, Phone: [phone] Potassium [id number] 13:08:00 Test Item Value Reference Range Interpretation Comments Potassium (test code = 5.2 mmol/L 3.5-5.2 2823-3) ONEYDA (test code = ONEYDA) Performed at: [address] [place] [address] [id number] [place], [place] [id number] Director: Rian Auguste MD, Phone: [phone] [facility] with platelet and gkzccchptmhz9757-34-25 13:08:00 Test Item Value Reference Range Interpretation [...] 1 % Not Estab. (test code = 74735-5) Immature See_Comment [Automated granulocytes, message] The absolute (test code = system which 77903-9) generated this result transmitted reference range : 0.0 - 0.1 x10E3/uL. The reference range was not used to interpret this result as normal/abnormal . ONEYDA (test code = ONEYDA) Performed at: [address] [place] [address] [id number] Director: Rian Auguste MD, Phone: [phone] Lab Interpretation Abnormal (test code = 19465-0) [facility] mbhlcrd5199-83-06 13:08:00 Test Item Value Reference Range Interpretation Comments Hepatitis B surface Ag Negative Negative (test code = 5196-1) ONEYDA (test code = ONEYDA) Performed at: [facility] [id number] Director: Rian Auguste MD, Phone: [phone] [facility] B surface ykplicqj5904-44-51 13:08:00 Test Item Value Reference Range Interpretation Comments Hepatitis B Non Reactive Non Reactive: surface Ab (test Inconsisten t with code = 23433-1) immunity, le ss than 10 mIU/mL React kinza: Consistent with immunity, grea ter than 9.9 mIU/mL ONEYDA (test code = Performed at: [facility]) [address] [id number] Director: Rian Auguste MD, Phone: [phone] [facility] A antibody rzfll9478-70-09 13:08:00 Test Item Value Reference Range Interpretation Comments Hepatitis A total Ab Positive Negative A (test code = 40098-9) ONEYDA (test code = ONEYDA) Performed at: [address] [id number] Director: Rian Auguste MD, Phone: [phone] Lab Interpretation (test Abnormal code = 57678-6) Reticulocyte count, txqhesima5712-99-48 13:08:00 Test Item Value Reference Range Interpretation Comments Retic count, manual 1.5 % 0.6-2.6 (test code = 96086-8) ONEYDA (test code = ONEYDA) Performed at: [address] [id number] Director: Rian Auguste MD, Phone: [phone] Total iron binding xbajrdiy9435-59-17 13:08:00 Test Item Value Reference Range Interpretation Comments Iron binding capacity 295 ug/dL 250-450 (test code = 2500-7) Unsaturated iron binding 253 ug/dL 111-343 capacity (test code = 2501-5) Iron level (test code = 42 ug/dL 38-169 2498-4) Iron saturation (test 14 % 15-55 L code = 2502-3) ONEYDA (test code = ONEYDA) Performed at: [address] [place] [address] [id number] Director: Rian Auguste MD, Phone: [phone] Lab Interpretation (test Abnormal code = 10146-7) HIV 1/2 antigen/antibody, fourth generation w/zvi9943-63-94 13:08:00 Test Item Value Reference Range Interpretation Comments HIV AG/AB 4th Non Reactive Non Reactive HIV gen (test code NegativeHIV-1 /HIV-2 = 28713-7) antibodies and HIV-1 p24 antigen wer e NOT detected.There is no laboratory evid ence of HIV infectio n. ONEYDA (test code Performed at: - = ONEYDA) [address] [id number] Director: Rian Auguste MD, Phone: [phone] Vitamin B12 [id number] 13:08:00 Test Item Value Reference Range Interpretation Comments Vitamin B12 (test 315 pg/mL 232-1245 code = 2132-9) ONEYDA (test code = ONEYDA) Performed at: - [address] [id number] Director: Rian Auguste MD, Phone: [phone] Ferritin uigok3386-13-09 13:08:00 Test Item Value Reference Range Interpretation Comments Ferritin level (test 86 ng/mL 30-400 code = 2276-4) ONEYDA (test code = ONEYDA) Performed at: - [address] [id number] Director: Rain Auguste MD, Phone: [phone] Folate ovmja8239-80-72 13:08:00 Test Item Value Reference Range Interpretation Comments Folate (test 12.2 ng/mL See_Comment A serum folate code = 2284-8) concentration of less than 3.1 ng/mL isconsidered to represent clini doyle deficiency. [Automated mess age] The system [employer] generated this result transmitted ref erence range: >=3.0. T he reference range was not used to int erpret this result as normal/abnormal . ONEYDA (test code Performed at: - = ONEYDA) [address] [id number] Director: Rian Auguste MD, Phone: [phone] AombdemlWVX0734-12-42 13:08:00 Test Item Value Reference Range Interpretation Comments GGT (test code See_Comment [Automated m essage] = 2324-2) The system [employer] generated this result transmit gretta reference range : 0 - 65 IU/L. The reference range was not used to interpret this result as normal/abnormal . ONEYDA (test code Performed at: - = ONEYDA) [address] [id number] Director: Rian Auguste MD, Phone: [phone] [facility] lhoyw8199[facility]14-48 13:08:00 Test Item Value Reference Range Interpretation Comments Potassium (test code = 5.2 mmol/L 3.5-5.2 2823-3) ONEYDA (test code = ONEYDA) Performed at: [facility] [id number] Director: Rian Auguste MD, Phone: [phone] [facility] with platelet and hklzitbtgrqy1834-52-37 13:08:00 Test Item Value Reference Range Interpretation [...] 1 % Not Estab. (test code = 57566-3) Immature See_Comment [Automated granulocytes, message] The absolute (test code = system which 07889-8) generated this result transmitted reference range : 0.0 - 0.1 x10E3/uL. The reference range was not used to interpret this result as normal/abnormal . ONEYDA (test code = ONEYDA) Performed at: [facility] [id number] Director: Rian Auugste MD, Phone: [phone] Lab Interpretation Abnormal (test code = 70720-7) [facility] B surface wuzekip9934-03-19 13:08:00 Test Item Value Reference Range Interpretation Comments Hepatitis B surface Ag Negative Negative (test code = 5196-1) ONEYDA (test code = ONEYDA) Performed at: [facility] [address] [id number] Director: Rian Auguste MD, Phone: [phone] [facility] B surface jnmbhrju5993-82-39 13:08:00 Test Item Value Reference Range Interpretation Comments Hepatitis B Non Reactive Non Reactive: surface Ab (test Inconsisten t with code = 31192-9) immunity, l ess than 10 mIU/mL Reactive: Consistent with immunity, great er than 9.9 mIU/mL ONEYDA (test code = Performed at: ONEYDA) [address] [id number] Director: Rian Auguste MD, Phone: [phone] [facility] A antibody vanvh8322-17-34 13:08:00 Test Item Value Reference Range Interpretation Comments Hepatitis A total Ab Positive Negative A (test code = 16033-5) ONEYDA (test code = ONEYDA) Performed at: [address] [place] [address] [id number] Director: Rian Auguste MD, Phone: [phone] Lab Interpretation (test Abnormal code = 18302-1) Reticulocyte count, hclrceexq6162-93-31 13:08:00 Test Item Value Reference Range Interpretation Comments Retic count, manual 1.5 % 0.6-2.6 (test code = 20350-1) ONEYDA (test code = ONEYDA) Performed at: [address] [place] [address] [id number] Director: Rian Auguste MD, Phone: [phone] Total iron binding zzudpcbk7974-79-13 13:08:00 Test Item Value Reference Range Interpretation Comments Iron binding capacity 295 ug/dL 250-450 (test code = 2500-7) Unsaturated iron binding 253 ug/dL 111-343 capacity (test code = 2501-5) Iron level (test code = 42 ug/dL 38-169 2498-4) Iron saturation (test 14 % 15-55 L code = 2502-3) ONEYDA (test code = ONEYDA) Performed at: [address] [place] [address] [id number] Director: Rian Auguste MD, Phone: [phone] Lab Interpretation (test Abnormal code = 90994-9) [facility] generation w/tzx1019-16-13 13:08:00 Test Item Value Reference Range Interpretation Comments HIV AG/AB 4th Non Reactive Non Reactive HIV gen (test code NegativeHIV-1 /HIV-2 = 09818-2) antibodies and HIV-1 p24 antigen wer e NOT detected.There is no laboratory evid ence of HIV infectio n. ONEYDA (test code Performed at: - = ONEYDA) [address] [id number] Director: Rian Auguste MD, Phone: [phone] Vitamin B12 jfmbv4751-66-51 13:08:00 Test Item Value Reference Range Interpretation Comments Vitamin B12 (test 315 pg/mL 232-1245 code = 2132-9) ONEYDA (test code = ONEYDA) Performed at: - [address] [id number] Director: Rian Auguste MD, Phone: [phone] Ferritin hofak0311-40-26 13:08:00 Test Item Value Reference Range Interpretation Comments Ferritin level (test 86 ng/mL 30-400 code = 2276-4) ONEYDA (test code = ONEYDA) Performed at: [address] [id number] Director: Rian Auguste MD, Phone: [phone] Folate ngvab3727-00-17 13:08:00 Test Item Value Reference Range Interpretation Comments Folate (test 12.2 ng/mL See_Comment A serum folate code = 2284-8) concentration of less than 3.1 ng/mL isconsidered to represent clini doyle deficiency. [Automated mess age] The system [employer] generated this result transmitted ref erence range: >=3.0. T he reference range was not used to int erpret this result as normal/abnormal . ONEYDA (test code Performed at: - = ONEYDA) [address] [id number] Director: Rian Auguste MD, Phone: [phone] Comprehensive metabolic [id number] 15:35:00 Test Item Value Reference Range Interpretation [...] (test code = 8.3 mg/dL 8.6-10.2 L 99137-7) Protein (test code = 5.5 g/dL 6-8.5 L 2885-2) Albumin, S (test code 3.4 g/dL 3.7-4.7 L = 1751-7) Globulin, total (test 2.1 g/dL 1.5-4.5 code = 44788-4) Albumin/globulin 1.2-2.2 ratio (test code = 1759-0) Total bilirubin (test 0-1.2 code = 1975-2) Alkaline phosphatase See_Comment [Autom ated (test code = 6768-6) message ] The system which generated this result transmitted reference range : 44 - 121 IU/L. The reference range was not used to interpr et this result as normal/abnormal . AST (test code = See_Comment H [Automated 1920-8) message] The system which generated this result [...] code = ONEYDA) Performed at: 01 - [address] [id number] Director: Rian Auguste MD, Phone: [phone] Lab Interpretation Abnormal (test code = 44095-6) Lipid [id number] 15:35:00 Test Item Value Reference Range Interpretation [...] doyle 14 mg/dL 5-40 (test code = 77074-5) LDL Chol Calc ([facility]) 70 mg/dL 0-99 (test code = 27391-9) Non-HDL cholesterol 84 mg/dL 0-129 (test code = 28909-0) ONEYDA (test code = Performed at: 01 ONEYDA) - [address] [id number] Director: Rian Auguste MD, Phone: [phone] Hemoglobin [id number] 15:35:00 Test Item Value Reference Range Interpretation Comments Hemoglobin A1C (test 8.6 % 4.8-5.6 H Predia betes: code = 4548-4) 5.7 - 6.4 Diabetes: >6.4 Glycemic control for adults with diabetes: <7.0 ONEYDA (test code = ONEYDA) Performed at: - [address] [id number] Director: Rian Auguste MD, Phone: [phone] Lab Interpretation Abnormal (test code = 34744-4) Vitamin D 25 hydroxy [id number] 15:35:00 Test Item Value Reference Range Interpretation Comments Vitamin D, 23.2 ng/mL 30-100 L Vitamin D 25-hydroxy (test deficiency has been code = 49729-7) defined by t [place] [employer] and an Endocrine Socie ty practice guidel ine as alevel of se rum 25-OH vitamin D less than 20 ng /mL (1,2).The Endoc rine Society went on to further define vitamin Dinsufficiency as a level between 2 1 and 29 ng/mL (2 ).1. IOM ([place] [employer]). 2010 . Dietary referen ce intakes for doyle carvajal and Yi [place] on [place]: [employer] .2. Mendez MF, Meliza BANDA, Urbano LI, et al. Evaluation, treatment, and prevention of vitamin D deficiency: an Endocrine Socie ty clinical practi ce guideline. JCEM . 2010; 96(2):1911-30. ONEYDA (test code = Performed at: ONEYDA) - [address] [id number] Director: Rian Auguste MD, Phone: [phone] Lab Interpretation Abnormal (test code = 59047-9) [facility] [id number] 15:35:00 Test Item Value Reference Range Interpretation Comments Creatinine, urine 37.1 mg/dL Not Estab. (mg/dL) (test code = 2161-8) Albumin, urine (test 154.0 ug/mL Not Estab. code = 11114-7) Microalbumin/creatini See_Comment H Minda l: 0 - 29 ne ratio (test code = Modera tely 9318-7) increased: 30 - 300 Severely increased: >300 [Automated message] The system which generated this result transmitted reference range : 0 - 29 mg/g creat. The reference range was not used to interpret this result as normal/abnormal . ONEYDA (test code = ONEYDA) Performed at: [address] [place] [address] [id number] Director: Rian Auguste MD, Phone: [phone] Lab Interpretation Abnormal (test code = 35674-3) [facility] reflex to [id number] 15:35:00 Test Item Value Reference Range Interpretation Comments TSH (test code = See_Comment H Results con firmed 71885-7) ondilution. [Automated message] The system which generated this result transmitted reference range : 0.450 - 4.500 uIU/mL. The reference range was not used to interpret this result as normal/abnormal . ONEYDA (test code = ONEYDA) Performed at: [facility] [address] [id number] Director: Rian Auguste MD, Phone: [phone] Lab Interpretation Abnormal (test code = 22870-4) T FREE (EVERT HIST)2021-07-05 15:35:00 Test Item Value Reference Range Interpretation Comments T4, free, direct dialysis 0.27 ng/dL 0.82-1.77 L (test code = 3024-7) ONEYDA (test code = ONEYDA) Performed at: [address] [place] [address] [id number] Director: Rian Auguste MD, Phone: [phone] Lab Interpretation (test Abnormal code = 25336-8) [facility] [id number] 15:35:00 Test Item Value Reference Range Interpretation [...] (test code = 8.3 mg/dL 8.6-10.2 L 61738-0) Protein (test code = 5.5 g/dL 6.0-8.5 L 2885-2) Albumin, S (test code 3.4 g/dL 3.7-4.7 L = 1751-7) Globulin, total (test 2.1 g/dL 1.5-4.5 code = 93656-6) Albumin/globulin 1.2-2.2 ratio (test code = 1759-0) Total bilirubin (test 0.0-1.2 code = 1975-2) Alkaline phosphatase See_Comment [Autom ated (test code = 6768-6) message ] The system which generated this result transmitted reference range : 44 - 121 IU/L. The reference range was not used to interpr et this result as normal/abnormal . AST (test code = See_Comment H [Automated 1919-) message] The system which generated this result transmitted reference range : 0 - 40 IU/L. Th e reference range was not used to interpret this result as normal/abnormal . ALT (test code = See_Comment [Automated 1741-) message] The system which generated this result transmitted reference range : 0 - 44 IU/L. Th e reference range was not used to interpret this result as normal/abnormal . ONEYDA (test code = ONEYDA) Performed at: - [address] [id number] Director: Rian Auguste MD, Phone: [phone] Lab Interpretation Abnormal (test code = 76526-3) Lipid [id number] 15:35:00 Test Item Value Reference Range Interpretation [...] doyle 14 mg/dL 5-40 (test code = 07249-8) LDL Chol Calc ([facility]) 70 mg/dL 0-99 (test code = 86465-4) Non-HDL cholesterol 84 mg/dL 0-129 (test code = 43586-6) ONEYDA (test code = Performed at: ONEYDA) - [facility] [id number] Director: Rian Auguste MD, Phone: [phone] Hemoglobin [id number] 15:35:00 Test Item Value Reference Range Interpretation Comments Hemoglobin A1C (test 8.6 % 4.8-5.6 H Predia betes: code = 4548-4) 5.7 - 6.4 Diabetes: >6.4 Glycemic control for adults with diabetes: <7.0 ONEYDA (test code = ONEYDA) Performed at: 01 - [facility] [address] [id number] Director: Rian Auguste MD, Phone: [phone] Lab Interpretation Abnormal (test code = 48668-8) Vitamin D 25 hydroxy [id number] 15:35:00 Test Item Value Reference Range Interpretation Comments Vitamin D, 23.2 ng/mL 30.0-100.0 L Vitamin D 25-hydroxy (test deficiency has been code = 42527-2) defined by [facility] [place] [facility] and an Endocrine Socie ty practice guidel ine as alevel of se rum 25-OH vitamin D less than 20 ng /mL (1,2).The Endoc rine Society went on to further define vitamin Dinsufficiency as a level between 2 1 and 29 ng/mL (2 ).1. IOM ([place] [employer]). 2010 . Dietary referen ce intakes for doyle cium and Yi [place]: [employer] .2. Mendez MF, Meliza sterling [place], Urbano yan LI, et al. Evaluation, treatment, and prevention of vitamin D deficiency: an Endocrine Socie ty clinical practi ce guideline. JCEM . 2010; 96(7):1911-30. ONEYDA (test code = Performed at: ONEYDA) - [facility] [address] [id number] Director: Rian Auguste MD, Phone: [phone] Lab Interpretation Abnormal (test code = 21835-5) Microalbumin / creatinine urine [id number] 15:35:00 Test Item Value Reference Range Interpretation Comments Creatinine, urine 37.1 mg/dL Not Estab. (mg/dL) (test code = 2161-8) Albumin, urine (test 154.0 ug/mL Not Estab. code = 64614-0) Microalbumin/creatini See_Comment H Minda l: 0 - 29 ne ratio (test code = Modera tely 9318-7) increased: 30 - 300 Severely increased: >300 [Automated message] The system which generated this result transmitted reference range : 0 - 29 mg/g creat. The reference range was not used to interpret this result as normal/abnormal . ONEYDA (test code = ONEYDA) Performed at: [address] [place] [address] [id number] Director: Rian Auguste MD, Phone: [phone] Lab Interpretation Abnormal (test code = 71411-0) [facility] reflex to [id number] 15:35:00 Test Item Value Reference Range Interpretation Comments TSH (test code = See_Comment H Results con firmed 72014-5) ondilution. [Automated message] The system which generated this result transmitted reference range : 0.450 - 4.500 uIU/mL. The reference range was not used to interpret this result as normal/abnormal . ONEYDA (test code = ONEYDA) Performed at: [address] [place] [address] [id number] Director: Rian Auguste MD, Phone: [phone] Lab Interpretation Abnormal (test code = 41178-1) [place] [address] FREE (EVERT HIST)2021-07-05 15:35:00 Test Item Value Reference Range Interpretation Comments T4, free, direct dialysis 0.27 ng/dL 0.82-1.77 L (test code = 3024-7) ONEYDA (test code = ONEYDA) Performed at: [address] [place] [address] [id number] Director: Rian Auguste MD, Phone: [phone] Lab Interpretation (test Abnormal code = 07030-7) Comprehensive metabolic [id number] 15:35:00 Test Item Value Reference Range Interpretation [...] Chloride (test code = 99 mmol/L 96-106 5-0) CO2 (test code = 20 mmol/L 20-29 2027-9) Calcium (test code = 8.3 mg/dL 8.6-10.2 L 33221-2) Protein (test code = 5.5 g/dL 6.0-8.5 L 2885-2) Albumin, S (test code 3.4 g/dL 3.7-4.7 L = 1751-7) Globulin, total (test 2.1 g/dL 1.5-4.5 code = 31366-7) Albumin/globulin 1.2-2.2 ratio (test code = 1759-0) Total bilirubin (test 0.0-1.2 code = 1974-2) Alkaline phosphatase See_Comment [Autom ated (test code = 6768-) message ] The system which generated this result transmitted reference range : 44 - 121 IU/L. The reference range was not used to interpr et this result as normal/abnormal . AST (test code = See_Comment H [Automated 1919-09) message] The system which generated this result [...] ONEYDA (test code = ONEYDA) Performed at: [facility] [id number] Director: Rian Auguste MD, Phone: [phone] Lab Interpretation Abnormal (test code = 57125-8) Lipid [id number] 15:35:00 Test Item Value Reference Range Interpretation Comments Cholesterol (test 132 mg/dL 100-199 code = 3-3) Triglycerides (test 65 mg/dL 0-149 code = 2571-8) HDL cholesterol 48 mg/dL See_Comment [Automated (test code = 2084-9) message ] The system which generated this result transmitted reference range : >=39. The reference range was not used to interpret this result as normal/abnormal . VLDL cholesterol doyle 14 mg/dL 5-40 (test code = 56232-1) LDL Chol Calc ([facility]) 70 mg/dL 0-99 (test code = 43243-1) Non-HDL cholesterol 84 mg/dL 0-129 (test code = 50610-4) ONEYDA (test code = Performed at: ONEYDA) - [facility] [address] [id number] Director: Rian Auguste MD, Phone: [phone] Hemoglobin [id number] 15:35:00 Test Item Value Reference Range Interpretation Comments Hemoglobin A1C (test 8.6 % 4.8-5.6 H Predia daisy: code = 4548-4) 5.7 - 6.4 Diabetes: >6.4 Glycemic control for adults with diabetes: <7.0 ONEYDA (test code = ONEYDA) Performed at: - [facility] [address] [id number] Director: Rian Auguste MD, Phone: [phone] Lab Interpretation Abnormal (test code = 99479-3) Vitamin D 25 hydroxy [id number] 15:35:00 Test Item Value Reference Range Interpretation Comments Vitamin D, 23.2 ng/mL 30.0-100.0 L Vitamin D 25-hydroxy (test deficiency has been code = 63481-9) defined by [facility] and an Endocrine Socie ty practice guidel ine as alevel of se rum 25-OH vitamin D less than 20 ng /mL (1,2).The Endoc rine Society went on to further define vitamin Dinsufficiency as a level between 2 1 and 29 ng/mL (2 ).1. IOM ([place] [employer]). 2010 . Dietary referen ce intakes for doyle cium and D. [place]: [employer] .2. Mendez BASSETT, Meliza BANDA, Urbano yan LI, et al. Evaluation, treatment, and prevention of vitamin D deficiency: an Endocrine Socie ty clinical practi ce guideline. JCEM . 2010; 96(7):1911-30. ONEYDA (test code = Performed at: 01 ONEYDA) - [address] [id number] Director: Rian Auguste MD, Phone: [phone] Lab Interpretation Abnormal (test code = 75401-0) Microalbumin / creatinine urine [id number] 15:35:00 Test Item Value Reference Range Interpretation Comments Creatinine, urine 37.1 mg/dL Not Estab. (mg/dL) (test code = 2161-8) Albumin, urine (test 154.0 ug/mL Not Estab. code = 82729-4) Microalbumin/creatini See_Comment H Minda l: 0 - 29 ne ratio (test code = Modera tely 9318-7) increased: 30 - 300 Severely increased: >300 [Automated message] The system which generated this result transmitted reference range : 0 - 29 mg/g creat. The reference range was not used to interpret this result as normal/abnormal . ONEYDA (test code = ONEYDA) Performed at: - [address] [id number] Director: Rian Auguste MD, Phone: [phone] Lab Interpretation Abnormal (test code = 09900-3) [facility] reflex to [id number] 15:35:00 Test Item Value Reference Range Interpretation Comments TSH (test code = See_Comment H Results con firmed 52952-2) ondilution. [Automated message] The system which generated this result transmitted reference range : 0.450 - 4.500 uIU/mL. The reference range was not used to interpret this result as normal/abnormal . ONEYDA (test code = ONEYDA) Performed at: [address] [place] [address] [id number] Director: Rian Auguste MD, Phone: [phone] Lab Interpretation Abnormal (test code = 37984-8) [place] [address] FREE (EVERT HIST)2021-07-05 15:35:00 Test Item Value Reference Range Interpretation Comments T4, free, direct dialysis 0.27 ng/dL 0.82-1.77 L (test code = 3024-7) ONEYDA (test code = ONEYDA) Performed at: [address] [place], [place] [address]s[place], [place], [place] [id number] Director: Rian Auguste MD, Phone: [phone] Lab Interpretation (test Abnormal code = [id number])
[2022-02-26 12:03] LABS: MCV 84.4 fL (80-100); MPV 6.3 fL (7.6-11.3); RBC Red Blood Cell Count 3.32 M/uL (4.33-5.43)
[2022-02-26 12:04] LABS: Protime INR 1.04
[2022-02-26 12:20] LABS: SARS-CoV-2 Antigen Rapid Res Negative (Negative)
[2022-02-26 12:22] LABS: AST/SGOT 13 U/L (15-37); Albumin 2.7 g/dL (3.4-5.0); Alkaline Phosphatase 112 U/L (45-117); BUN Blood Urea Nitrogen 23 mg/dL (7-18); Bicarbonate 27 mmol/L (21-32); Bilirubin Direct 0.1 mg/dL (0-0.2); Bilirubin Total 0.2 mg/dL (0.2-1.0); Glomerular Filtration Rate 52 ml/min (=/>90); Glucose Level 88 mg/dL (74-106); Magnesium 2.5 mg/dL (1.6-2.4); NT PRO-BNP 2101 pg/mL (<125); Potassium 4.7 mmol/L (3.5-5.1); Protein, Total 6.6 g/dL (6.4-8.2); Sodium Level 138 mmol/L (136-145); Troponin High Sensitivity 9.8 pg/mL (<58.9)
[2022-02-26 12:23] LABS: ALT/SGPT < 10 U/L (16-61)
--- NOTE | 2022-02-26 12:25 | RAD REPORT ---
EXAM DESCRIPTION: RAD - Chest Single View - 02/26/2022 12:01 pm CLINICAL HISTORY: CHEST PAIN Chest pain. COMPARISON: No comparisons FINDINGS: Portable technique limits examination quality. The lungs are mildly emphysematous. Mild opacities in left lung base may represent atelectasis. Devel oping pneumonia is not excluded. The heart is upper limit normal in size. No displaced fractures.
--- NOTE | 2022-02-26 13:18 | RAD REPORT ---
EXAM DESCRIPTION: CT - Chest For Pe Angio - 02/26/2022 1:08 pm CLINICAL HISTORY: Chest pain. chest pain COMPARISON: No comparisons TECHNIQUE: CT angiogram of the pulmonary arteries was performed with MIP. All CT scans are performed using dose optimization technique as appropriate and may include automated exposure control or mA/KV adjustment according to patient size. FINDINGS: No evidence of pulmonary thromboembolism. No acute aortic finding demonstrated. Linear atelectasis is present in both lung bases. Noncalcified 11 mm nodule is seen medial right midd le lobe. Trace left pleural effusion. Postsurgical changes involve the stomach. Renal cysts are partially visualized. Esophagus mildly flui d distended. IMPRESSION: No evidence of pulmonary thromboembolism. 11 mm nodule right middle lobe. Recommend follow-up CT chest in 3 months or follow-up nonemergent PET -CT.
--- NOTE | 2022-02-26 14:25 | ER ---
Nurse's Notes [facility] Name: Dangelo Montana Age: 71 yrs Sex: Male : 1950 Arrival Date: 02/26/2022 Time: 11:17 Bed 13 Private MD: Diagnosis: Chest pain, unspecified Presentation: 02/26 11:17 Chief complaint: EMS states: 30 MIN SUBSTERNAL CHEST PAIN FROM [place]. Coronavirus bp screen: At this time, the client does not indicate any symptoms associated with coronavirus-19. Ebola Screen: No symptoms or risks identified at this time. Initial Sepsis Screen: Does the patient meet any 2 criteria? No. Patient's initial sepsis screen is negative. Does the patient have a suspected source of infection? No. Patient's initial sepsis screen is negative. Risk Assessment: Do you want to hurt yourself or someone else? Patient reports no desire to harm self or others. Onset of symptoms was February 26, 2022 at 10:30. Care prior to arrival: Medication(s) given: ASA, 81 mg, x 4, Nitroglycerin, 0.4 mg SL x 2. 11:17 Method Of Arrival: EMS: [facility] bp 11:17 Acuity: MEDARDO 3 bp Triage Assessment: 11:20 General: Appears in no apparent distress. Behavior is calm, cooperative. Pain: bp Complains of pain in chest. EENT: No deficits noted. Neuro: No deficits noted. Cardiovascular: Rhythm is sinus rhythm. Respiratory: No deficits noted. GI: No signs and/or symptoms were reported involving the gastrointestinal system. : No signs and/or symptoms were reported regarding the genitourinary system. Derm: No deficits noted. Musculoskeletal: No deficits noted. Historical: - Allergies: 11:30 Morphine; bp - PMHx: 11:30 Depressive disorder; Diabetes mellitus; Hypertensive disorder; Atrial fibrillation; bp - Immunization history:: Adult Immunizations up to date. - Social history:: Smoking status: Patient denies any tobacco usage or history of. Screenin:33 [facility] ED Fall Risk Assessment (Adult) History of falling in the last 3 months, bp including since admission No falls in past 3 months (0 pts). Abuse screen: Denies threats or abuse. Denies injuries from another. Nutritional screening: No deficits noted. Nutritional screening: No deficits noted. Tuberculosis screening: No symptoms or risk factors identified. Assessment: 11:32 General: SEE TRIAGE NOTE. bp 13:20 Reassessment: PT RETURNED FROM CT. bp Vital Signs: 11:17 BP 158 / 90; Pulse 65; Resp 16; Temp 97.4; Pulse Ox 98% ; bp 11:19 BP 163 / 81; Pulse 63; Resp 18; Temp 98.2; Pulse Ox 97% on R/A; tm3 13:20 BP 136 / 64; Pulse 81; Resp 16; Pulse Ox 97% ; bp 14:30 BP 130 / 68; Pulse 76; Resp 16; Pulse Ox 96% ; bp 15:30 BP 154 / 80; Pulse 72; Resp 16; Pulse Ox 98% ; bp 16:30 BP 149 / 76; Pulse 81; Resp 16; Pulse Ox 97% ; bp ED Course: 11:17 Patient arrived in ED. bp 11:18 Ronnie Elizabeth PA is PHCP. jmm 11:18 Jair Rangel MD is Attending Physician. jmm 11:19 Triage completed. bp 11:20 Arm band placed on. bp 11:29 Nico Burns, RN is Primary Nurse. bp 11:32 EKG done, by ED staff. tm3 11:33 Patient has correct armband on for positive identification. Bed in low position. Call bp light in reach. Side rails up X2. Client placed on continuous cardiac and pulse oximetry monitoring. NIBP monitoring applied. 11:33 Patient maintains SpO2 saturation greater than 95% on room air. bp 11:53 Initial lab(s) drawn, by tx, sent to lab. Inserted saline lock: 22 gauge in right tm3 antecubital area, using aseptic technique. 12:02 XRAY Chest (1 view) In Process Unspecified. EDMS 13:10 CT Chest For PE Angio In Process Unspecified. EDMS 14:23 Jacques Vora MD is Hospitalizing Provider. jmm 16:51 No provider procedures requiring assistance completed. Patient admitted, IV remains in bp place. Administered Medications: 14:32 Not Given (Duplicate Order): Aspirin Chewable Tablet 324 mg PO once; 81 mg tablets x 4 bp Medication: 17:05 VIS not applicable for this client. kc6 Outcome: 14:24 Decision to Hospitalize by Provider. jmm 16:51 Admitted to Med/surg accompanied by tech, via stretcher, room 425, with chart, Report bp called to REJI MCLEAN 16:51 Condition: stable 16:51 Instructed on the need for admit. 17:05 Patient left the ED. kc6 Signatures: Dispatcher [employer] EDJack Tracy tm3 Ronnie Elizabeth PA PA jmm Peltier, Brian, RN RN Tawny Hayes RN RN kc6 Corrections: (The following items were deleted from the chart) 11:23 11:20 Allergies: Morphine; bp bp
--- NOTE | 2022-02-26 14:25 | EDPHYS ---
Physician Documentation [facility] Name: Dangelo Montana Age: 71 yrs Sex: Male : 1950 Arrival Date: 02/26/2022 Time: 11:17 Bed 13 Private MD: ED Physician Jair Rangel HPI: 02/26 11:18 This 71 yrs old Male presents to ER via EMS with complaints of Chest Pain. [facility] 11:18 Onset: The symptoms/episode began/occurred acutely, this morning. Associated signs and jmm symptoms: Pertinent negatives: abdominal pain, fever, shortness of breath, vomiting. This is a 71-year-old male with history of hypertension and diabetes mellitus the presents emerged department with complaints of substernal chest pain beginning approximately 30 minutes prior to arrival. Denies shortness of breath. Denies history of CAD.. Historical: - Allergies: 11:30 Morphine; bp - PMHx: 11:30 Depressive disorder; Diabetes mellitus; Hypertensive disorder; Atrial fibrillation; bp - Immunization history:: Adult Immunizations up to date. - Social history:: Smoking status: Patient denies any tobacco usage or history of. ROS: 11:18 Constitutional: Negative for fever, chills, and weight loss. jmm 11:18 Cardiovascular: Positive for chest pain. 11:18 All other systems are negative. Exam: 11:18 Constitutional: This is a well developed, well nourished patient who is awake, alert, jmm and in no acute distress. Head/Face: atraumatic. Eyes: EOMI, no conjunctival erythema appreciated ENT: Moist Mucus Membranes Neck: Trachea midline, Supple Chest/axilla: Normal chest wall appearance and motion. 11:18 Respiratory: Normal respirations, no respiratory distress appreciated Abdomen/GI: Non distended Back: Normal ROM Skin: General appearance color normal MS/ Extremity: Moves all extremities, no obvious deformities appreciated, no edema noted to the lower extremities Neuro: Awake and alert Psych: Behavior is normal, Mood is normal, Patient is cooperative and pleasant 11:18 Cardiovascular: Rate: normal, Rhythm: regular, Pulses: no pulse deficits are appreciated. 11:30 ECG was reviewed by the Attending Physician. [facility] Vital Signs: 11:17 BP 158 / 90; Pulse 65; Resp 16; Temp 97.4; Pulse Ox 98% ; bp 11:19 BP 163 / 81; Pulse 63; Resp 18; Temp 98.2; Pulse Ox 97% on R/A; tm3 13:20 BP 136 / 64; Pulse 81; Resp 16; Pulse Ox 97% ; bp 14:30 BP 130 / 68; Pulse 76; Resp 16; Pulse Ox 96% ; bp 15:30 BP 154 / 80; Pulse 72; Resp 16; Pulse Ox 98% ; bp 16:30 BP 149 / 76; Pulse 81; Resp 16; Pulse Ox 97% ; bp MDM: 11:25 Patient medically screened. [facility] 14:13 Data reviewed: vital signs, nurses notes, lab test result(s), EKG. Consideration of [facility] Admission/Observation Patient was admitted/placed on observation. Management of patient was discussed with the following: Hospitalist: Dr. Vora. I considered the following discharge prescriptions or medication management in the emergency department Medications were administered in the Emergency Department. See MAR. Independent interpretation of the following test(s) in the Emergency Department EKG: See my EKG interpretation above. Historians other than the Patient: EMS: EMS. Care significantly affected by the following chronic conditions: Diabetes, Hypertension. Counseling: I had a detailed discussion with the patient and/or guardian regarding: the historical points, exam findings, and any diagnostic results supporting the discharge/admit diagnosis, lab results, radiology results, the need for further work-up and treatment in the hospital. 02/26 11:18 Order name: Basic Metabolic Panel; Complete Time: 12: [facility] 02/26 11:18 Order name: CBC with Diff; Complete Time: 12: [facility] 02/26 11:18 Order name: LFT's; Complete Time: 12: [facility] 02/26 11:18 Order name: Magnesium; Complete Time: 12:26 [facility] 02/26 11:18 Order name: NT PRO-BNP; Complete Time: 12:26 [facility] 02/26 11:18 Order name: PT-INR; Complete Time: 12:26 [facility] 02/26 11:18 Order name: Troponin HS; Complete Time: 12: [facility] 02/26 11:50 Order name: SARS RAPID; Complete Time: 12: [facility] 02/26 14:49 Order name: Basic Metabolic Panel [facility] 02/26 14:49 Order name: Basic Metabolic Panel [facility] 02/26 14:49 Order name: CBC with Automated Diff [facility] 02/26 14:49 Order name: CBC with Automated Diff [facility] 02/26 14:49 Order name: Lipid Profile [facility] 02/26 14:49 Order name: Lipid Profile [facility] 02/26 11:18 Order name: XRAY Chest (1 view); Complete Time: 12:26 [facility] 02/26 11:18 Order name: EKG; Complete Time: 11:19 [facility] 02/26 11:18 Order name: Cardiac monitoring; Complete Time: 11:59 [facility] 02/26 11:18 Order name: EKG - Nurse/Tech; Complete Time: 11:59 [facility] 02/26 11:18 Order name: IV Saline Lock; Complete Time: 11:59 [facility] 02/26 11:18 Order name: Labs collected and sent; Complete Time: 11:59 [facility] 02/26 11:18 Order name: O2 Per Protocol; Complete Time: 11:50 [facility] 02/26 12:38 Order name: CT Chest For PE Angio; Complete Time: 13:23 [facility] 02/26 14:49 Order name: CONS Physician Consult [facility] 02/26 14:49 Order name: Heart Healthy [facility] 02/26 14:49 Order name: Echo with Doppler [facility] 02/26 14:49 Order name: Troponin High Sensitivity [facility] 02/26 14:49 Order name: Troponin High Sensitivity [facility] 02/26 14:49 Order name: Troponin High Sensitivity [facility] 02/26 14:49 Order name: Troponin High Sensitivity; Complete Time: 16:46 [facility] 02/26 11:18 Order name: O2 Sat Monitoring; Complete Time: 11:50 [facility] EC:30 Rate is 60 beats/min. QRS [place] is Normal. IN interval is normal. QRS interval is jmm normal. QT interval is normal. T waves are Flattened in lead III. No ST changes noted. Reviewed by me. Administered Medications: 14:32 Not Given (Duplicate Order): Aspirin Chewable Tablet 324 mg PO once; 81 mg tablets x 4 bp Disposition: 17:38 Co-signature as Attending Physician, Jair Rangel MD. rn Disposition Summary: 02/26/22 14:24 Hospitalization Ordered Hospitalization Status: Observation jm Provider: Jacques Vora Location: Telemetry/MedSur (observation) [facility] Condition: Stable jmm Problem: new jmm Symptoms: have improved jmm Bed/Room Type: Standard [facility] Room Assignment: 425(02/26/22 16:24) eb Diagnosis - Chest pain, unspecified jmm Forms: - Medication Reconciliation Form jmm - SBAR form jmm Signatures: Dispatcher [employer] EDRonnie Molina PA PA jmm Jair Rangel MD MD rn Peltier, Brian, RN RN bp Botello, Elizabeth eb Corrections: (The following items were deleted from the chart) 11 11:20 Allergies: Morphine; bp bp 16:24 14:24 jmm eb
[2022-02-26] MEDS ORDERED: MORPHINE 4 MG/ML SYR IV PRN (14:44)
[2022-02-26] MEDS ORDERED: ACETAMINOPHEN 500 MG TAB PO PRN (14:44)
[2022-02-26 17:24] VITALS: BMI 26.3
--- NOTE | 2022-02-26 17:43 | P.HP ---
Certification for Inpatient Patient admitted to: Observation With expected LOS: <2 Midnights Patient will require the following post-hospital care: None Practitioner: I am a practitioner with admitting privileges, knowledge of patient current condition, hospital course, and medical plan of care. Services: Services provided to patient in accordance with Admission requirements found in Title 42 Section 412.3 of the Code of Federal Regulations Patient History Date of Service: 02/26/22 Reason for admission: Chest pain rule out acute coronary syndrome History of Present Illness: Patient is a 71-year-old gentleman came to the hospital chest discomfort. Pain was on the left side of his chest but not radiating. Patient has a history of hypertension and diabetes and with multiple risk factors. Patient will be admitted to the hospital for serial troponins. We will do echocardiogram and possible stress test in the morning. Allergies morphine Allergy (Severe, Verified 10/05/21 21:49) Hallucinations Home Medications: Amiodarone HCl [Cordarone*] 200 mg PO DAILY 10/06/21 Bisacodyl [Dulcolax*] 10 mg RC DAILY PRN 10/06/21 Docusate [Colace Cap*] 100 ng PO DAILY 10/06/21 Duloxetine HCl [Cymbalta] 60 mg PO DAILY 10/06/21 Ergocalciferol (Vitamin D2) [Vitamin D2] 1,250 mcg PO EVERY 7TH DAY 10/06/21 Ferrous Sulfate [Iron] 325 mg PO BIDWM 10/06/21 Gabapentin [Neurontin*] 400 mg PO BID 10/06/21 Glimepiride [Amaryl] 1 mg PO DAILY 10/06/21 Levothyroxine [Synthroid*] 50 mcg PO [id number] 10/06/21 Melatonin [Melatonin*] 3 mg PO BEDTIME 10/06/21 Metformin ER [Glucophage ER*] 500 mg PO BIDWM 10/06/21 Omeprazole 20 mg PO DAILY 10/06/21 Rivastigmine Patch [Exelon 4.6 mg Patch*] 4.6 mg TOP DAILY 10/06/21 Senosides [Senokot*] 8.6 mg PO DAILY 10/06/21 Sitagliptin Phosphate [Januvia] 50 mg PO DAILY 10/06/21 Tamsulosin [Flomax*] 0.4 mg PO DAILY 10/06/21 Trazodone [Desyrel*] 100 mg PO BEDTIME 10/06/21 carvediloL [Coreg*] 25 mg PO BIDWM 10/06/21 methocarbamoL [Robaxin*] 750 mg PO QID 10/06/21 Cranberry Fruit Extract 200 mg PO BID cap 10/19/21 Hydrocodone 5/APAP 325 [[place] 5/325*] 1 tab PO Q4H PRN #60 tab 10/19/21 - Past Medical/Surgical History Has patient received pneumonia vaccine in the past: No Diabetic: Yes -: AFib -: Anemia -: HTN -: CHF -: DM -: Chronic Kidney Disease -: Appendectomy -: Bariatric Gastric Bypass -: Back Sx -: Cholecystectomy - Family History Father Medical History: Heart disease Brother Medical History: Cancer Sister Medical History: Heart disease - Social History Smoking Status: Never smoker Alcohol use: No CD- Drugs: No Caffeine use: No Place of Residence: [place] Physical Examination - Vital Signs Temperature: 97.4 F Blood Pressure: 158/90 Pulse: 65 Respirations: 16 - Studies Laboratory Data (last 24 hrs) 02/26/22 11:50: PT 11.4, INR 1.04 02/26/22 11:50: WBC 8.80, Hgb 9.3 L, Hct 28.0 L, Plt Count 398 02/26/22 11:50: Sodium 138, Potassium 4.7, BUN 23 H, Creatinine 1.45 H, Glucose 88, Magnesium 2.5 H, Total Bilirubin 0.2, AST 13 L, ALT < 10 L, Alkaline Phosphatase 112 Assessment & Plan - Problems (Diagnosis) (1) Chest pain, rule out acute myocardial infarction Current Visit: Yes Status: Acute - Plan -High-sensitivity troponin -Cardiology consultation -Echocardiogram and stress test per cardiology recommendation -Repeat EKG -Work-up for other etiologies of cardiac chest pain if troponins remain negative -Lipid profile -Metal Alloy Scientist regarding modifying risk for cardiac disease - Advance Directives Does patient have a Living Will: No Does patient have a Durable POA for Healthcare: No
[2022-02-26] MEDS: HYDROMORPHONE HCL 0.5 MG/0.5 ML INJ IV PRN (20:29)
[2022-02-26] MEDS: METOPROLOL TAR 25 MG TAB PO SCH (20:29)
[2022-02-26] MEDS: TRAZODONE 50 MG TABLET PO PRN (23:15)
[2022-02-27] MEDS: ALPRAZOLAM 0.25 MG TABLET PO PRN (04:15)
[2022-02-27 05:13] LABS: Absolute Lymphocytes (CBC) 2.3 K/uL (0.7-4.9); Hematocrit 27.4 % (39.6-49.0); Lymphocytes % 20.2 % (15.3-44.8); MCV 84.5 fL (80-100); MPV 6.2 fL (7.6-11.3); RBC Red Blood Cell Count 3.24 M/uL (4.33-5.43)
[2022-02-27 05:28] LABS: Potassium 4.5 mmol/L (3.5-5.1)
[2022-02-27] MEDS: ENOXAPARIN 40 MG/0.4 ML SQ SCH (08:32)
[2022-02-27] MEDS: ASPIRIN EC 81 MG TAB PO SCH (08:32)
[2022-02-27] MEDS: METOPROLOL TAR 25 MG TAB PO SCH ×2 (08:33→20:31)
[2022-02-27] MEDS: HYDROMORPHONE HCL 0.5 MG/0.5 ML INJ IV PRN (08:34)
--- NOTE | 2022-02-27 08:54 | CON ---
Date of Consultation: 02/27/2022 Reason For Consultation: Chest pain. History Of Present Illness: A 71-year-old male with history of atrial fibrillation, hypertension, di abetes, congestive heart failure, anemia, chronic kidney disease, presented with chest pain, sharp in nature, retrosternal, at rest and is becoming more frequent. No nausea, vomiting, diarrhea. No dys uria, polyuria, or urinary urgency. Past Medical History: As outlined above in the HPI. Medications: Refer to reconciliation sheet for detailed list. Allergies: MORPHINE. Family History: No premature coronary artery disease or cancer. Social History: Does not smoke or drink. Does not use any drugs. Review of Systems: All systems reviewed and they were negative except what mentioned in HPI. Physical Examination: Vital Signs: Reviewed. Head and Neck: Pupils are equal, reactive to light. Intact eye movements. No JVD. No cervical lym phadenopathy. Neck is supple. Thyroid is not enlarged. Lungs: Clear to auscultation bilaterally. No rhonchi, wheezing, or crackles. No accessory muscle u se. Heart: Regular rate and rhythm. No extra sounds. Abdomen: Soft, nontender. Bowel sounds positive. No organomegaly. No masses or hernia. No rigidi ty or rebound. Extremities: No edema, clubbing, or cyanosis. Intact pulses. Skin: No rash. Neurologic: Alert, awake, oriented x3. No acute focal deficits appreciated. Investigations: BUN 25, creatinine 1.38, troponins are negative and hemoglobin 9.1. Assessment And Recommendations: 1.Chest pain, could represent unstable angina. Recommend a nuclear stress test this morning and ech ocardiogram and further recommendations to follow accordingly. 2.History of atrial fibrillation. Appears to be in sinus. Continue current management. 3.Hypertension. Blood pressure is elevated. Resume home medications. Adjust as needed. SR/MODL Voice ID: [id number] Report ID: [id number]
[2022-02-27] MEDS ORDERED: HYDROCODONE/APAP 10/325 TAB PO PRN (11:10)
[2022-02-27 16:12] VITALS: O2SAT 95
--- NOTE | 2022-02-27 16:51 | EKG ---
Test Date: 2022-02-26 Test Time: 20:25:13 Mail Inserter: ELISABETH MEASUREMENT RESULTS: Intervals: Rate: 67 NM: 266 QRSD: 86 QT: 422 QTc: 445 [place]: P: 65 NM: 266 QRS: 7 T: 50 INTERPRETIVE STATEMENTS: Sinus rhythm with 1st degree AV block Possible Anterior infarct, age undetermined Abnormal ECG Compared to ECG 02/26/2022 11:29:06 No significant changes Electronically Signed On 02-27-22 16:49:58 [employer] by Gildardo Roche
--- NOTE | 2022-02-27 16:52 | EKG ---
Test Date: 2022-02-26 Test Time: 11:29:06 Sheet Cutting Operator: ANGELIA MEASUREMENT RESULTS: Intervals: Rate: 60 MT: 276 QRSD: 84 QT: 434 QTc: 434 [place]: P: 57 MT: 276 QRS: 29 T: 44 INTERPRETIVE STATEMENTS: Sinus rhythm with 1st degree AV block Cannot rule out Anterior infarct, age undetermined Abnormal ECG Compared to ECG 10/25/2021 06:30:47 Sinus bradycardia no longer present Myocardial infarct finding still present Electronically Signed On 02-27-22 16:50:30 WHEEL AND AXLE INSPECTOR by Gildardo Roche
[2022-02-27] MEDS: TRAZODONE 50 MG TABLET PO PRN (20:32)
[2022-02-28] MEDS: ALPRAZOLAM 0.25 MG TABLET PO PRN (03:46)
[2022-02-28] MEDS: METOPROLOL TAR 25 MG TAB PO SCH (07:54)
[2022-02-28] MEDS: ASPIRIN EC 81 MG TAB PO SCH (07:54)
[2022-02-28] MEDS: ENOXAPARIN 40 MG/0.4 ML SQ SCH (07:55)
--- NOTE | 2022-02-28 08:41 | ECHO ---
HEIGHT: 5 ft 8 in WEIGHT: 173 lb 0 oz DATE OF STUDY: 02/27/[address]: Jacques Vora MD 2-DIMENSIONAL: YES M.MODE: YES DOPPLER: YES COLOR FLOW: YES TDS: NO PORTABLE: YES DEFINITY: NO BUBBLE STUDY: NO DIAGNOSIS: CHEST PAIN CARDIAC HISTORY: CATHERIZATION: SURGERY: PROSTHETIC VALVE: PACEMAKER: MEASUREMENTS (cm) DIASTOLIC (NORMALS) SYSTOLIC (NORMALS) IVSd 1.1 (0.6-1.2) LA Diam 4.6 (1.9-4.0) LVEF 63% LVIDd 4.7 (3.5-5.7) LVIDs 3.1 (2.0-3.5) %FS 34% LVPWd 1.3 (0.6-1.2) Ao Diam 2.7 (2.0-3.7) 2 DIMENSIONAL ASSESSMENT: RIGHT ATRIUM: NORMAL LEFT ATRIUM: ENLARGED RIGHT VENTRICLE: NORMAL LEFT VENTRICLE: NORMAL TRICUSPID VALVE: MILD TRICUSPID REGURGITATION MITRAL VALVE: MILD MITRAL REGURGITATION PULMONIC VALVE: MILD PULMONIC INSUFFICIENCY AORTIC VALVE: NORMAL PERICARDIAL EFFUSION: NONE AORTIC ROOT: NORMAL LEFT VENTRICULAR WALL MOTION: NORMAL. DOPPLER/COLOR FLOW: SEE BELOW. COMMENTS: 1. NORMAL LEFT VENTRICULAR EJECTION FRACTION 55-60% 2. NORMAL WALL MOTION 3. LEFT ATRIAL ENLARGEMENT 4. MODERATE DIASTOLIC DYSFUNCTION 5. MODERATE PULMONARY HYPERTENSION WITH RIGHT VENTRICULAR SYSTOLIC PRESSURE OF 50-55mmHg. 6. MILD (MITRAL & TRICUSPID REGURGITATION, PULMONIC INSUFFICIENCY) TECHNOLOGIST: NEISHA DOMINGUEZ
[2022-02-28] MEDS ORDERED: LOSARTAN POTASSIUM 50 MG TABLET PO SCH (09:46)
[2022-02-28 10:15] LABS: Specific Gravity 1.008 (1.005-1.030); Urine Bacteria None Seen /HPF (<20); Urine Bilirubin NEGATIVE (Negative); Urine Blood Negative (Negative); Urine Clarity Clear (Clear); Urine Color Light-Yellow (Yellow); Urine Glucose NEGATIVE (Negative); Urine Mucus Slight /HPF (None Seen); Urine Protein NEGATIVE (Negative); Urine RBC <5 /HPF (None Seen); Urine Urobilinogen Normal (Normal); Urine pH 7.5 (5.0-7.0)
[2022-02-28 12:13] VITALS: BP 162/78; TEMP 97
--- NOTE | 2022-02-28 13:57 | PN ---
Date of Progress Note: 02/28/2022 Subjective: Seen by bedside. No chest pain. Cardiac enzymes have been negative. Review of Systems: No chest pain, shortness of breath, orthopnea, cough. No nausea, vomiting, or diarrhea. No dysuria or polyuria. All other systems were reviewed and were negative. Physical Examination: Vital Signs: Temperature is 97.5, pulse is 54, breathing at 16, blood pressure is 162/78, saturating 95% on room air. General: Pleasant elderly male, in no apparent distress. Head and Neck: Pupils are equal, reactive to light. Intact eye movements. No JVD. No cervical lym phadenopathy. Neck: Supple. Thyroid is not enlarged. Lungs: Clear to auscultation bilaterally. No rhonchi, rales, or crackles. No accessory muscle use. Heart: Regular rate and rhythm. No extra sounds. Abdomen: Soft, nontender. Bowel sounds positive. No organomegaly. No masses or hernia. No rigidi ty or rebound.. Extremities: No clubbing, cyanosis. Intact pulses. Skin: No rash. Neurologic: Alert, awake, oriented x3. No acute focal deficits appreciated. Investigations: BUN 25, creatinine 1.38. Cardiac enzymes are negative. Assessment And Plan: 1.Chest pain. Cardiac enzymes are negative. The patient can be released and planned for cardiac st ress test as an outpatient. His ejection fraction on echo was normal. 2.Hypertension. Blood pressure medications needs adjustment. I would add Norvasc 5 mg daily, and the patient can be followed as an outpatient for further cardiac ev aluation. SR/MODL Voice ID: [id number] Report ID: [id number]
== END 2022-02-28 12:00 | disposition home or self-care (01) ==
LOC: ER 11:14 → ERHOLD 14:45 → 4TH 16:52
PROVIDERS: ADMIT Hospitalist; ATTEND Hospitalist
DX: R07.9 Chest pain, unspecified (principal); I48.91 Unspecified atrial fibrillation; I10 Essential (primary) hypertension; E11.9 Type 2 diabetes mellitus without complications; Z88.6 Allergy status to analgesic agent; Z82.49 Family history of ischemic heart disease and other diseases of the circulatory system; Z80.9 Family history of malignant neoplasm, unspecified; Z20.822 Contact with and (suspected) exposure to COVID-19
CPT/HCPCS: 93005 ×2; 93306; 87088; 85025 ×2; 81001; 87086; 80048 ×2; 36415; 83735; 85610; 80061; 82947; 80076; 84484 ×4; 83880; 71275; 71045; 99285; 87811; Q9967; J1650 ×2; J1170 ×2; G0378